=== PATIENT | male | born 1935 | race Caucasian/White ===

== ENCOUNTER 2020-05-28 12:21 | Outpatient (REF) | payer MEDICARE, OTHER, SELFPAY | END 2020-05-28 12:22 | disposition home or self-care (01) | LOC: HO.LAB 12:21 | PROVIDERS: Visit Provider Internal Medicine | DX: Z20.828 Contact with and (suspected) exposure to other viral communicable diseases (principal) | CPT/HCPCS: C9803; U0003 ==

== ENCOUNTER 2020-06-18 09:45 | Outpatient (REF) | payer MEDICARE, OTHER, SELFPAY ==
[2020-06-18 10:27] LABS: Basophils Percent Auto 0.7 % (0-2); Eosinophils Absolute Auto 0.1 X10*3/uL (0.0-0.4); Eosinophils Percent Auto 1.4 % (0-4); Hemoglobin 10.6 g/dl (14.0-18.0); Imm Gran Abs Auto 0.02 X10*3/uL (0.00-0.03); Imm Gran Pct Auto 0.3 % (0.0-0.4); Lymphocytes Absolute Auto 0.6 X10*3/uL (1.2-4.9); MANUAL DIFF FLAG SCAN; Mean Corpuscular HGB Conc 30.3 g/dl (31.0-36.0); Mean Corpuscular Hemoglobin 27.5 pg (27.0-33.0); Mean Corpuscular Volume 90.7 fL (80-98); Mean Platelet Volume 9.5 fL (9.4-12.4); Monocytes Absolute Auto 0.6 X10*3/uL (0.1-1.2); Monocytes Percent Auto 10.8 % (2-11); Neutrophils Absolute Auto 4.5 X10*3/uL (2.0-8.3); Neutrophils Percent Auto 76.8 % (45-73); Platelet Count 218 X10*3/uL (160-400); Red Blood Count 3.86 X10*6/uL (4.60-5.80); Red Cell Distribution Width 17.4 % (11.0-16.0); SCAN SMEAR FLAG 1; White Blood Count 5.9 X10*3/uL (4.8-10.8)
[2020-06-18 11:34] LABS: Alanine Aminotransferase 14 U/L (0-40); Albumin Level 4.2 g/dL (3.5-5.0); Alkaline Phosphatase 92 U/L (39-117); Anion Gap 9 (12-20); Aspartate Amino Transferase 27 U/L (5-37); Bilirubin Total 0.6 mg/dL (0.0-1.0); Blood Urea Nitrogen 28 mg/dL (9-16); Calcium 9.9 mg/dL (8.4-10.2); Carbon Dioxide 27 mmol/L (22-29); Chloride 108 mmol/L (96-108); Cholesterol 97 mg/dL; Estimated Glomerular Filt Rate > 60; Glucose Fasting 120 mg/dL (60-99); HDL Cholesterol 48 mg/dL; LDL Cholesterol Calculated 40 mg/dl; Potassium 4.3 mmol/l (3.3-5.1); Sodium 140 mmol/L (135-145); Total Protein 7.6 g/dL (6.5-8.0); Triglycerides 48 mg/dL
[2020-06-18 11:45] LABS: Reflex LDLD? No
[2020-06-18 12:43] LABS: SLIDE REVIEW VERIFIED
[2020-06-18 13:26] LABS: Glucose Urine UA NEG (NEG); Leukocyte Esterase Urine NEG (NEG); Nitrite Urine NEG (NEG); Specific Gravity - Urine >= 1.030 (1.005-1.025); Urine Blood TRACE (NEG); Urine Ketones NEG (NEG); Urine Protein 1+ MG/DL (NEG-TRACE)
[2020-06-18 13:38] LABS: Appearance Urine CLEAR; Color Urine YELLOW
[2020-06-18 13:53] LABS: RBC Urine 0-2 /HPF (0); Squamous Epithelial Cell Urine 1+ /LPF
== END 2020-06-18 09:46 | disposition home or self-care (01) ==
LOC: HO.LAB 09:45
PROVIDERS: PCP Internal Medicine; Visit Provider Internal Medicine
DX: E78.6 Lipoprotein deficiency (principal); I10 Essential (primary) hypertension; R73.09 Other abnormal glucose; E78.00 Pure hypercholesterolemia, unspecified; R97.20 Elevated prostate specific antigen [PSA]; E04.1 Nontoxic single thyroid nodule
CPT/HCPCS: 36415; 80053; 80061; 81001; 84443; 85025

== ENCOUNTER 2020-07-24 13:03 | Outpatient (REF) | payer MEDICARE, OTHER, SELFPAY ==
[2020-07-24 15:16] LABS: Anion Gap 15 (12-20); Blood Urea Nitrogen 24 mg/dL (9-16); Calcium 8.8 mg/dL (8.4-10.2); Carbon Dioxide 25 mmol/L (22-29); Chloride 105 mmol/L (96-108); Estimated Glomerular Filt Rate > 60; Glucose Random 103 mg/dL (60-115); Potassium 4.2 mmol/l (3.3-5.1); Sodium 141 mmol/L (135-145)
[2020-07-24 15:22] LABS: B Type Natriuretic Peptide 423 pg/mL (<100)
== END 2020-07-24 13:04 | disposition home or self-care (01) ==
LOC: HO.LAB 13:03
PROVIDERS: PCP Internal Medicine; Referring Provider Internal Medicine Cardiovascular Disease; Visit Provider Internal Medicine Cardiovascular Disease
DX: I50.30 Unspecified diastolic (congestive) heart failure (principal); I48.20 Chronic atrial fibrillation, unspecified; I25.10 Atherosclerotic heart disease of native coronary artery without angina pectoris; Z79.899 Other long term (current) drug therapy
CPT/HCPCS: 36415; 80048; 83880; 99212

== ENCOUNTER → 2020-10-04 13:54 | Outpatient (BNVA) | payer MEDICARE, OTHER, SELFPAY | PROVIDERS: PCP Internal Medicine; Visit Provider Urology | DX: N40.1 Benign prostatic hyperplasia with lower urinary tract symptoms (principal); N13.8 Other obstructive and reflux uropathy; C67.9 Malignant neoplasm of bladder, unspecified | CPT/HCPCS: 52000; 81002; 99212 ==

== ENCOUNTER 2020-12-25 10:48 | Outpatient (REF) | payer MEDICARE, OTHER, SELFPAY ==
[2020-12-25 12:03] LABS: Alanine Aminotransferase 13 U/L (0-40); Alkaline Phosphatase 86 U/L (39-117); Aspartate Amino Transferase 27 U/L (5-37); Bilirubin Direct 0.6 mg/dL (0.0-0.5); Bilirubin Total 1.3 mg/dL (0.0-1.0); Cholesterol 97 mg/dL; HDL Cholesterol 42 mg/dL; LDL Cholesterol Calculated 44 mg/dl; Total Protein 6.9 g/dL (6.5-8.0); Triglycerides 56 mg/dL
[2020-12-25 13:07] LABS: Reflex LDLD? No
== END 2020-12-25 10:49 | disposition home or self-care (01) ==
LOC: HO.LNP 10:48
PROVIDERS: PCP Internal Medicine; Visit Provider Internal Medicine
DX: E78.00 Pure hypercholesterolemia, unspecified (principal)
CPT/HCPCS: 80061; 80076

== ENCOUNTER 2021-01-03 16:24 | Outpatient (REF) | payer MEDICARE, OTHER, SELFPAY ==
[2021-01-03 16:28] LABS: MANUAL DIFF FLAG NO
[2021-01-03 16:36] LABS: Basophils Percent Auto 0.5 % (0-2); Eosinophils Absolute Auto 0.3 X10*3/uL (0.0-0.4); Hemoglobin 11.6 g/dl (14.0-18.0); Imm Gran Abs Auto 0.03 X10*3/uL (0.00-0.03); Imm Gran Pct Auto 0.5 % (0.0-0.4); Lymphocytes Absolute Auto 0.5 X10*3/uL (1.2-4.9); Lymphocytes Percent Auto 8.7 % (20-40); Mean Corpuscular HGB Conc 32.2 g/dl (31.0-36.0); Mean Corpuscular Hemoglobin 31.1 pg (27.0-33.0); Mean Corpuscular Volume 96.5 fL (80-98); Mean Platelet Volume 9.5 fL (9.4-12.4); Monocytes Absolute Auto 0.7 X10*3/uL (0.1-1.2); Monocytes Percent Auto 11.5 % (2-11); Neutrophils Absolute Auto 4.7 X10*3/uL (2.0-8.3); Neutrophils Percent Auto 74.8 % (45-73); Platelet Count 300 X10*3/uL (160-400); Red Blood Count 3.73 X10*6/uL (4.60-5.80); Red Cell Distribution Width 14.1 % (11.0-16.0); White Blood Count 6.2 X10*3/uL (4.8-10.8)
[2021-01-03 17:03] LABS: Alanine Aminotransferase 11 U/L (0-40); Albumin Level 3.8 g/dL (3.5-5.0); Alkaline Phosphatase 105 U/L (39-117); Anion Gap 14 (12-20); Aspartate Amino Transferase 19 U/L (5-37); Bilirubin Total 0.8 mg/dL (0.0-1.0); Blood Urea Nitrogen 28 mg/dL (9-16); Calcium 8.7 mg/dL (8.4-10.2); Carbon Dioxide 23 mmol/L (22-29); Chloride 108 mmol/L (96-108); Estimated Glomerular Filt Rate > 60; Glucose Random 138 mg/dL (60-115); Potassium 4.4 mmol/L (3.3-5.1); Sodium 141 mmol/L (135-145); Total Protein 7.1 g/dL (6.5-8.0)
[2021-01-03 17:35] LABS: Erythrocyte Sedimentation Rate 64 MM/HR (0-15)
== END 2021-01-03 16:25 | disposition home or self-care (01) ==
LOC: HO.LNP 16:24
PROVIDERS: Visit Provider Internal Medicine
DX: R68.83 Chills (without fever) (principal)
CPT/HCPCS: 80053; 85025; 85652

== ENCOUNTER 2021-01-09 09:49 | Outpatient (REF) | payer MEDICARE, OTHER, SELFPAY ==
--- NOTE | ~2021-01-09 | CT_ITS ---
EXAMINATION: CT CHEST WITHOUT CONTRAST CLINICAL INFORMATION: Lung nodule. COMPARISON: Multiple priors, most recent CT chest dated 06/27/2019. TECHNIQUE: Multidetector volumetric CT imaging of the chest was done. Axial MIP volume rendering provided. Sagittal and coronal reformatted images were obtained. This CT examination was performed using dose optimization techniques as appropriate, variously including the following: *Automated exposure control *Adjustment of mA and/or kV according to patient size (this includes techniques or standardized protocols for targeted exams where dose is matched to indication/reason for exam; i.e. extremities or head) *Use of iterative reconstruction technique DLP: 180 mGy-cm FINDINGS: CAREER TECHNICAL EDUCATION TEACHER: Unremarkable. LUNGS: Moderate emphysematous changes are redemonstrated. Stable focal pleural thickening at the apex of the right major fissure (axial image 283/725). Redemonstration of an ovoid, noncalcified 0.8 cm nodule within the apex of the left lower lobe (axial image 350/725). Stable 0.2 cm nodule centrally within the right middle lobe (axial image 496/725). Additional tiny calcified granulomas are unchanged. No new pulmonary nodule, mass, or confluent airspace consolidation. The central airways are patent. MEDIASTINUM: Myocardial megaly, unchanged. No pericardial effusion. Thoracic aorta and coronary artery atherosclerotic calcifications are redemonstrated. No thoracic aortic dilatation. Stable small superior mediastinal lymph nodes. No new or increasing lymphadenopathy. Partially visualized asymmetrically enlarged right thyroid, unchanged. PLEURA: There is no pleural effusion. No pleural mass or thickening. AXILLA: No lymphadenopathy. UPPER ABDOMEN: Unremarkable. OSSEOUS STRUCTURES: Unremarkable. CT/CT chest wo con IMPRESSION: 1. Moderate emphysematous changes are redemonstrated. Bilateral pulmonary nodules appear unchanged with the largest measuring 0.8 cm in the left lower lobe. 2. No new pulmonary nodule, mass, or airspace consolidation. 3. No new or increasing lymphadenopathy.
== END 2021-01-09 09:50 | disposition home or self-care (01) ==
LOC: HO.CT 09:49
PROVIDERS: PCP Internal Medicine; Visit Provider Internal Medicine
DX: R91.1 Solitary pulmonary nodule (principal)
CPT/HCPCS: 71250

== ENCOUNTER → 2021-01-25 11:53 | Outpatient (BNVA) | payer MEDICARE, OTHER, SELFPAY | PROVIDERS: PCP Internal Medicine; Visit Provider Urology | CPT/HCPCS: Q3014 ==

== ENCOUNTER → 2021-02-12 13:57 | Outpatient (REF) | payer MEDICARE, OTHER, SELFPAY ==
--- NOTE | 2021-02-12 14:00 | CA_ITS ---
Transthoracic Echocardiogram Patient (Last, First, Middle): Duke Felton W Gender: Male Date of : 1935 Age: 85 Procedure Date: 02/12/2021 Procedure Type: Transthoracic Echocardiogram Location: OP Height: 185.42 cm Weight: 77.11 kg BSA: 2.01 m2 Heart Rate: bpm BP: 124 / 60 mmHg Water Control Station Engineer: Referring MD: Albert Cabrrea MD Symptoms: I27.20 - Pulmonary hypertension, unspecified Study Quality: Fair ECG Rhythm: Atrial Fibrillation Conclusions: - The left ventricular systolic function is normal. The visually estimated ejection fraction is between 65-70%. - The basal inferior segment is hypokinetic. - Moderately increased right ventricular cavity size. - Severe biatrial enlargement. - There is mild aortic valve stenosis. - There is moderate tricuspid valve regurgitation. - Moderate to severe pulmonary hypertension is present. Findings Left Ventricle Normal left ventricular cavity size. There is mildly increased left ventricular wall thickness. The left ventricular systolic function is normal. The visually estimated ejection fraction is between 65-70%. Diastolic function is indeterminate on the basis of available data. Wall Motion Rest Echo Findings The basal inferior segment is hypokinetic. Right Ventricle Moderately increased right ventricular cavity size. There is normal right ventricular systolic function. RV basal diameter 4.57cm. TAPSE 2.2cm. Atria Severe biatrial enlargement. Aortic Valve There is moderate calcification of the aortic valve. There is mild aortic valve stenosis. The mean gradient is 8 mmHg. The aortic valve area is 1.69 cm2. There is trace (trivial) aortic valve regurgitation. Dimensionless index 0.37. Mitral Valve There is mild mitral annular calcification. There is mild mitral valve regurgitation. There is no mitral valve stenosis. Pulmonic Valve The pulmonic valve was not well visualized. Tricuspid Valve Normal tricuspid valve structure. There is moderate tricuspid valve regurgitation. The right ventricular systolic pressure is 66 mmHg. Moderate to severe pulmonary hypertension is present. Great Vessels The asc aorta is normal in size. Venous The inferior vena cava is dilated and collapses greater than 50% with inspiration. Pericardium/Pleural There is no evidence of pericardial effusion. Prior Study Comparison No significant change compared to prior study dated: 01/31/2020. Wall motion abnormality noted in prior study upon review of images. Measurements 2D Linear Measurements IVSd: 1.12 0.6-0.9/0.6-1.0 cm LVIDd: 5.16 3.9-5.3/4.2-5.9 cm LVIDd Index: 2.57 2.4-3.2/2.2-3.1 cm/m2 LVIDs: 3.82 2.0-3.6 cm LVPWd: 1.04 0.7-1.1 cm Ao Root: 3.70 2.1-3.5 cm LA Diam: 5.40 2.7-3.8/3.0-4.0 cm LAIDs Index: 2.69 1.5-2.3 cm/m2 LV Mass: 265.03 67-162/88-224 g LV Mass Index: 131.85 43-95/49-115 g/m2 LVOT Diam: 2.30 3.0+(-)1.3 cm 2D Systolic Function EF 4C: 72.10 >55% EF 2C: 75.50 >55% EF BiP: 73.50 >55% Mitral Valve MV Pk E: 1.38 MV Decel Time: 177.00 E'Lateral: 11.70 E'Medial: 8.70 E/E' Med: 15.90 E/E' Lat: 11.80 PHT: 52.00 MVA PHT: 4.23 Decel Coles: 7.81 Aortic Valve AoV Pk Alvaro: 2.25 AoV Mn Alvaro: 1.19 AoV VTI: 0.58 AoV Pk Grad: 20.00 Aov Mn Grad: 8.00 CARLOS Cont.VTI: 1.69 LVOT LVOT Pk Alvaro: 0.86 LVOT Mn Alvaro: 0.66 LVOT VTI: 0.24 LVOT Pk Grad: 3.00 LVOT Mn Grad: 2.00 LVOT Diam: 2.30 LVOT Area: 4.15 Diastolic Function MV Pk E: 1.38 E'Medial: 8.70 E/E' Med: 15.90 E' Laterial: 11.70 E/E' Lat: 11.80 Right Ventricle TAPSE (mm): 22.00 TVS' Alvaro: 14.00 Tricuspid Valve TR Pk Alvaro: 3.82 TR Pk Grad: 58.00 RA Press: 8.00 RVSP: 66.00 Great Vessels Aorta Ao Root-2D: 3.70 2.0-3.7 cm Ao Asc: 3.70 2.1-3.4 cm Pulmonary Valve PV Pk Alvaro: 0.65 Peak PV Grad: 2.00 Updated in Other Vendor System with Status of Final Marlon Thornton MD electronically signed on 02/13/2021 12:16:35 PM with status of Final
== END ==
LOC: HO.CARD 13:57
PROVIDERS: PCP Internal Medicine; Visit Provider Internal Medicine Cardiovascular Disease
DX: I27.20 Pulmonary hypertension, unspecified (principal); I48.20 Chronic atrial fibrillation, unspecified; I50.30 Unspecified diastolic (congestive) heart failure
CPT/HCPCS: 93306

== ENCOUNTER → 2021-02-20 10:25 | Outpatient (BNVA) | payer MEDICARE, OTHER, SELFPAY | PROVIDERS: PCP Internal Medicine; Referring Provider Internal Medicine; Visit Provider Internal Medicine Cardiovascular Disease | DX: I48.20 Chronic atrial fibrillation, unspecified (principal); R00.1 Bradycardia, unspecified; I50.30 Unspecified diastolic (congestive) heart failure; I25.10 Atherosclerotic heart disease of native coronary artery without angina pectoris | CPT/HCPCS: 99212 ==

== ENCOUNTER → 2021-03-11 10:59 | Day surgery (SDC) | payer MEDICARE, OTHER, SELFPAY ==
[2021-03-06 13:31] VITALS: BMI 21.8
--- NOTE | 2021-03-07 14:00 | HO.ANESPROP2 ---
HPI - Anesthesia Eval Consult details Narrative: 85yo M for Cystoscopy Bladder Fulguration Ezekiel with referral to EP for pacer for pending. Cardiology states optimized at intermed risk Xarelto for afib Case reviewed with Dr Morrell 03/11/21 - cx'd d/t HR 30-40's [facility] Active Problems Active Problems: All Active Problems (Updated 03/06/21 @ 13:39 by Sarah Jansen, RN) Bladder cancer (Acute) BPH w urinary obs/LUTS (Acute) Bradycardia (Acute) Hyperlipidemia (Acute) HTN (hypertension) (Acute) Pulmonary hypertension (Acute) (HFpEF) heart failure with preserved ejection fraction (Acute) CAD (coronary artery disease) (Acute) Chronic atrial fibrillation (Acute) Past Medical History Medical History (Updated 03/06/21 @ 13:39 by Sarah Jansen RN) (HFpEF) heart failure with preserved ejection fraction Bradycardia CAD (coronary artery disease) Chronic atrial fibrillation COPD (chronic obstructive pulmonary disease) HTN (hypertension) Hyperlipidemia Malignant neoplasm of lateral wall of urinary bladder Pulmonary hypertension Family History Family History Father Lung cancer Cancer Mother No problems noted. Surgical History Surgical History H/O transurethral resection of prostate History of appendectomy History of back surgery History of prostate surgery Stented coronary artery Social History Social History Household Members: Spouse Alcohol intake: never Patient Tobacco Use Status: Tobacco use Unknown Advance Directives: Yes (unknown) Advance Directives Information Provided: No Current occupational status: retired [employer] Allergies Allergy/AdvReac Type Severity Reaction Status Date / Time No Known Allergies Allergy Verified 03/11/21 11:57 [No Known Allergies*] Home Medications Medication Instructions Recorded Confirmed Last Taken Type albuterol sulfate 90 mcg/actuation 2 puff INHALATION Q6H PRN g 06/15/20 03/06/21 Unknown History aerosol inhaler atorvastatin 20 mg tablet 20 mg PO DAILY tab 06/15/20 03/06/21 Unknown History finasteride 5 mg tablet 5 mg PO DAILY tab 06/15/20 03/06/21 Unknown History potassium chloride 10 mEq 10 meq PO DAILY cap 06/15/20 03/06/21 Unknown History capsule,extended release tamsulosin 0.4 mg capsule 0.4 mg PO DAILY cap 06/15/20 02/20/21 Unknown History furosemide 40 mg tablet 40 mg PO DAILY 07/24/20 03/06/21 Unknown History rivaroxaban 20 mg tablet (Xarelto) 20 mg PO DAILY tab 07/24/20 03/11/21 03/04/21 History Exam Exam Date and Time: March 07, 2021 1400 Height,Weight and Vital Signs: Height 6 ft 1 in Weight 75 kg Pertinent Lab Results Pertinent Lab Results: Laboratory Tests 01/03/21 01/03/21 16:04 16:04 WBC 6.2 Hgb 11.6 L Hct 36.0 L Plt Count 300 D Sodium 141 Potassium 4.4 Chloride 108 Carbon Dioxide 23 BUN 28 H Creatinine 0.86 Narrative Narrative: EKG 01/2021 afib @ 40 ECHO 01/2021 Conclusions: - The left ventricular systolic function is normal.? The visually estimated ejection fraction is between 65-70%. ? - The basal inferior segment is hypokinetic. ? - Moderately increased right ventricular cavity size.? - Severe biatrial enlargement. ? - There is mild aortic valve stenosis. ? - There is moderate tricuspid valve regurgitation. ? - Moderate to severe pulmonary hypertension is present.? ??
[2021-03-11 11:52] VITALS: BP 189/53; PULSE 40; RESP 16; TEMP 37.1; O2SAT 95
--- NOTE | 2021-03-11 12:09 | PC.NURSE ---
Patient states that he is a DNR code status. Patient states he has filled out this paperwork in the past. Documentation not with patient nor found in medical database. Patients HCP is his Mirna Felton. Phone number [phone].
--- NOTE | 2021-03-11 12:42 | PC.NURSE ---
Patient pulse rate on monitor low 30s-low 40s, asymptomatic otherwise. Anesthesia Kathleen notified, per MD no EKG required, one in system from 02/20/21 showing Afib & note from Dr Cabrera stated patient in low 40s during that visit. Anesthesia to reach out to Dr Cabrrea.
--- NOTE | 2021-03-11 12:58 | PC.NURSE ---
Per Dr Malik, case to be cancelled for today, to follow up with rubber worker outpatient. Per Dr Malik patient does not need to go to ED. Clothes & belongings given back to patient and called.
--- NOTE | 2021-03-11 13:05 | PM.ANESPN ---
Subjective Subjective Date of Service: 03/11/21 Physical Exam Vital Signs: Vital Signs: Last Vital Signs Temp 98.8 F 03/11/21 11:52 Pulse 40 L 03/11/21 11:52 Resp 16 03/11/21 11:52 BP 189/53 H 03/11/21 11:52 Pulse Ox 95 03/11/21 11:52 Body Mass Index 21.8 Progress Note: A&P Assessment and plan Assessment and Plan: patient with history history of bradycardia and appointment for leadless pacer. HR in preop dipping to low 30s, pt assymptomatic. discussed with Dr. Cabrera. Will cancel procedure and send home. patient to follow with scheduled pacer appointment Fall Risk Details Current Medications: Current Medications Generic Name Dose Route Start Last Admin Trade Name Freq PRN Reason Stop Dose Admin Albuterol Sulfate 2.5 mg 03/11/21 11:04 Albuterol Sulfate (0.083%) 2.5 Mg/3 Ml Vial.Neb INHALE ONCE PRN Shortness of Breath/Wheezing Lactated Ringer's 1,000 mls @ 50 mls/hr 03/11/21 11:15 Lr IVCONT .Q20H MAVERICK Time Spent With Patient Time: Total time spent is greater than 50% in coordination of care (as documented) at patient's floor/unit and/or counseling patient:
== END ==
PROVIDERS: PCP Internal Medicine; Visit Provider Urology
DX: C67.9 Malignant neoplasm of bladder, unspecified (principal); Z53.20 Procedure and treatment not carried out because of patient's decision for unspecified reasons; I48.91 Unspecified atrial fibrillation; Z79.01 Long term (current) use of anticoagulants

== ENCOUNTER 2021-04-11 09:34 | Outpatient (REF) | payer MEDICARE, OTHER, SELFPAY ==
[2021-04-11 09:58] LABS: MANUAL DIFF FLAG NO
[2021-04-11 10:21] LABS: Basophils Percent Auto 0.6 % (0-2); Eosinophils Absolute Auto 0.2 X10*3/uL (0.0-0.4); Eosinophils Percent Auto 3.3 % (0-4); Hematocrit 36.2 % (42-52); Hemoglobin 11.1 g/dl (14.0-18.0); Imm Gran Abs Auto 0.01 X10*3/uL (0.00-0.03); Imm Gran Pct Auto 0.2 % (0.0-0.4); Lymphocytes Absolute Auto 0.5 X10*3/uL (1.2-4.9); Mean Corpuscular HGB Conc 30.7 g/dl (31.0-36.0); Mean Corpuscular Hemoglobin 28.3 pg (27.0-33.0); Mean Corpuscular Volume 92.3 fL (80-98); Mean Platelet Volume 9.2 fL (9.4-12.4); Monocytes Absolute Auto 0.6 X10*3/uL (0.1-1.2); Monocytes Percent Auto 11.8 % (2-11); Neutrophils Absolute Auto 3.6 X10*3/uL (2.0-8.3); Neutrophils Percent Auto 74.1 % (45-73); Platelet Count 260 X10*3/uL (160-400); Red Blood Count 3.92 X10*6/uL (4.60-5.80); Red Cell Distribution Width 16.7 % (11.0-16.0); White Blood Count 4.9 X10*3/uL (4.8-10.8)
[2021-04-11 10:29] LABS: INTERNATIONAL NORM RATIO 1.6 (0.9-1.1); Prothrombin Time 18.5 SEC (9.9-13.0)
[2021-04-11 10:44] LABS: Anion Gap 14 (12-20); Blood Urea Nitrogen 22 mg/dL (9-16); Calcium 9.1 mg/dL (8.4-10.2); Carbon Dioxide 20 mmol/L (22-29); Chloride 110 mmol/L (96-108); Estimated Glomerular Filt Rate > 60; Glucose Random 100 mg/dL (60-115); Potassium 4.6 mmol/L (3.3-5.1); Sodium 139 mmol/L (135-145)
== END 2021-04-11 09:35 | disposition home or self-care (01) ==
LOC: HO.LABR 09:34
PROVIDERS: PCP Internal Medicine; Visit Provider Internal Medicine Cardiovascular Disease
DX: I48.91 Unspecified atrial fibrillation (principal); I50.9 Heart failure, unspecified
CPT/HCPCS: 36415; 80048; 85025; 85610

== ENCOUNTER → 2021-04-22 13:05 | Outpatient (BNVA) | payer MEDICARE, OTHER, SELFPAY | PROVIDERS: PCP Internal Medicine; Referring Provider Internal Medicine; Visit Provider Internal Medicine Cardiovascular Disease ==

== ENCOUNTER 2021-04-22 16:05 | Outpatient (REF) | payer MEDICARE, OTHER, SELFPAY ==
--- NOTE | ~2021-04-22 | US_ITS ---
EXAMINATION: COLOR-FLOW DUPLEX IMAGING OF THE UNILATERAL RIGHT LOWER EXTREMITY ARTERIAL SYSTEM. VELOCITY MEASUREMENTS THROUGHOUT THE FEMORAL ARTERIES Interventional Radiologist: Patrice Sauceda M.D., F.S.I.R., F.A.C.R. CLINICAL INFORMATION: This is an 85-year-old male with an open wound. Peripheral arterial disease. RIGHT FEMORAL RUNOFF VELOCITIES: The right common femoral artery measures 124 cm/s and biphasic. The right profunda femoral artery is 34 cm/s and is biphasic. Right proximal superficial femoral artery measures 122 cm/s and biphasic. Mid superficial femoral artery is 125 cm/s and biphasic. Distal right superficial femoral artery measures 99 cm/s and is biphasic. Right popliteal velocity measures 65 cm/s and is biphasic. The posterior tibial artery velocity measures 64 cm/s and was biphasic. US/US arterial duplex LE RT IMPRESSION: 1. There is diffuse scattered atherosclerotic disease. No focal hemodynamically significant stenosis.
== END 2021-04-22 16:06 | disposition home or self-care (01) ==
LOC: HO.US 16:05
PROVIDERS: PCP Internal Medicine; Visit Provider Internal Medicine Cardiovascular Disease
DX: S31.103A Unspecified open wound of abdominal wall, right lower quadrant without penetration into peritoneal cavity, initial encounter (principal); I50.30 Unspecified diastolic (congestive) heart failure; I48.20 Chronic atrial fibrillation, unspecified; I25.10 Atherosclerotic heart disease of native coronary artery without angina pectoris; Z95.0 Presence of cardiac pacemaker
CPT/HCPCS: 93926; 99212

== ENCOUNTER → 2021-06-04 14:56 | Outpatient (BNVA) | payer MEDICARE, OTHER, SELFPAY | PROVIDERS: PCP Internal Medicine; Referring Provider Internal Medicine; Visit Provider Nurse Practitioner Family | DX: Z45.018 Encounter for adjustment and management of other part of cardiac pacemaker (principal); I50.30 Unspecified diastolic (congestive) heart failure; I25.10 Atherosclerotic heart disease of native coronary artery without angina pectoris; I48.20 Chronic atrial fibrillation, unspecified | CPT/HCPCS: 99212 ==

== ENCOUNTER 2021-06-18 08:52 | Outpatient (REF) | payer MEDICARE, OTHER, SELFPAY ==
[2021-06-18 16:56] LABS: Urine Cytology See Pathology rpt
[2021-06-18 16:58] LABS: Urine Cytology See Pathology rpt
== END 2021-06-18 08:53 | disposition home or self-care (01) ==
LOC: HO.LAB 08:52
PROVIDERS: PCP Internal Medicine; Visit Provider Urology
DX: C67.9 Malignant neoplasm of bladder, unspecified (principal); N40.1 Benign prostatic hyperplasia with lower urinary tract symptoms; N13.8 Other obstructive and reflux uropathy
CPT/HCPCS: 52000; 88112; 99212

== ENCOUNTER 2021-07-02 10:28 | Outpatient (REF) | payer MEDICARE, OTHER, SELFPAY ==
[2021-07-02 10:32] LABS: MANUAL DIFF FLAG NO
[2021-07-02 11:25] LABS: Basophils Percent Auto 0.1 % (0-2); Hematocrit 39.8 % (42.0-52.0); Hemoglobin 12.6 g/dl (14.0-18.0); Imm Gran Abs Auto 0.02 X10*3/uL (0.00-0.03); Imm Gran Pct Auto 0.3 % (0.0-0.4); Lymphocytes Absolute Auto 0.3 X10*3/uL (1.2-4.9); Lymphocytes Percent Auto 4.3 % (20-40); Mean Corpuscular HGB Conc 31.7 g/dl (31.0-36.0); Mean Corpuscular Volume 91.7 fL (80.0-98.0); Mean Platelet Volume 10.3 fL (9.4-12.4); Monocytes Absolute Auto 0.4 X10*3/uL (0.1-1.2); Monocytes Percent Auto 6.2 % (2-11); Neutrophils Absolute Auto 6.1 x10*3/uL (2.0-8.3); Neutrophils Percent Auto 89.1 % (45-73); Platelet Count 196 X10*3/uL (160-400); Red Blood Count 4.34 X10*6/uL (4.60-5.80); Red Cell Distribution Width 17.2 % (11.0-16.0); White Blood Count 6.8 X10*3/uL (4.8-10.8)
[2021-07-02 11:47] LABS: Alanine Aminotransferase 12 U/L (0-40); Albumin Level 4.1 g/dL (3.5-5.0); Alkaline Phosphatase 91 U/L (39-117); Anion Gap 12 (12-20); Aspartate Amino Transferase 19 U/L (5-37); Bilirubin Total 1.2 mg/dL (0.0-1.0); Blood Urea Nitrogen 29 mg/dL (9-16); Calcium 9.1 mg/dL (8.4-10.2); Carbon Dioxide 23 mmol/L (22-29); Chloride 108 mmol/L (96-108); Cholesterol 93 mg/dL; Estimated Glomerular Filt Rate > 60; Glucose Fasting 152 mg/dL (60-99); HDL Cholesterol 42 mg/dL; LDL Cholesterol Calculated 40 mg/dl; Potassium 4.4 mmol/L (3.3-5.1); Sodium 139 mmol/L (135-145); Total Protein 7.4 g/dL (6.5-8.0); Triglycerides 58 mg/dL
[2021-07-02 11:52] LABS: TSH reflex Free T4 1.04 uIU/mL (0.32-4.0)
[2021-07-02 12:19] LABS: Folate 9.2 ng/mL (> or = 4.0); Vitamin B12 336 pg/mL (200-900)
== END 2021-07-02 10:29 | disposition home or self-care (01) ==
LOC: HO.LNP 10:28
PROVIDERS: Visit Provider Internal Medicine
DX: E78.00 Pure hypercholesterolemia, unspecified (principal); I50.21 Acute systolic (congestive) heart failure; E04.1 Nontoxic single thyroid nodule; E53.8 Deficiency of other specified B group vitamins; R97.20 Elevated prostate specific antigen [PSA]
CPT/HCPCS: 80053; 80061; 82607; 82746; 84443; 85025

== ENCOUNTER 2021-07-11 15:50 | Outpatient (REF) | payer MEDICARE, OTHER, SELFPAY ==
[2021-07-11 15:55] LABS: Appearance Urine CLEAR; Color Urine YELLOW; Glucose Urine UA NEG (NEG); Leukocyte Esterase Urine 1+ (NEG); Nitrite Urine NEG (NEG); PH 5.5 (5.0-8.0); Specific Gravity - Urine >= 1.030 (1.005-1.025); Urine Blood TRACE (NEG); Urine Ketones NEG (NEG); Urine Protein 2+ MG/DL (NEG-TRACE)
[2021-07-11 16:07] LABS: Bacteria Urine 1+ /LPF; Squamous Epithelial Cell Urine TRACE /LPF
== END 2021-07-11 15:51 | disposition home or self-care (01) ==
LOC: HO.LNP 15:50
PROVIDERS: Visit Provider Internal Medicine
DX: I10 Essential (primary) hypertension (principal); E78.00 Pure hypercholesterolemia, unspecified
CPT/HCPCS: 81001

== ENCOUNTER → 2021-09-10 11:18 | Outpatient (BNVA) | payer MEDICARE, OTHER, SELFPAY | PROVIDERS: PCP Internal Medicine; Visit Provider Urology | DX: C67.9 Malignant neoplasm of bladder, unspecified (principal) | CPT/HCPCS: 99212 ==

== ENCOUNTER 2021-09-16 06:06 | Day surgery (SDC) | payer MEDICARE, OTHER, SELFPAY ==
[2021-09-11 14:45] VITALS: BMI 22.0
--- NOTE | 2021-09-13 13:23 | P.CONAN_ITS ---
Documented by User: Yeny Vargas NP 09/13/21 13:28 HPI - Anesthesia Eval Consult details Narrative: 85yo M for TUR Bladder Tumor with Gemcitabine Cx'd DOS 02/2021 for HR 30-40's. Had pacer placed 03/2021 for CHB Stable for 6 month f/u at 05/2021 cardiology office visit Xarelto for afib PMFSH Active Problems Active Problems: All Active Problems (Updated 09/10/21 @ 11:49 by Murray Watters MD) Bladder cancer (Acute) BPH w urinary obs/LUTS (Acute) Bradycardia (Acute) Cardiac pacemaker in situ (Acute) Hyperlipidemia (Acute) HTN (hypertension) (Acute) Pulmonary hypertension (Acute) (HFpEF) heart failure with preserved ejection fraction (Acute) CAD (coronary artery disease) (Acute) Chronic atrial fibrillation (Acute) Past Medical History Medical History (Updated 09/10/21 @ 11:49 by Murray Watters MD) (HFpEF) heart failure with preserved ejection fraction Bradycardia CAD (coronary artery disease) Cardiac pacemaker in situ Chronic atrial fibrillation COPD (chronic obstructive pulmonary disease) HTN (hypertension) Hyperlipidemia Malignant neoplasm of lateral wall of urinary bladder Pulmonary hypertension Family History Family History Father Lung cancer Cancer Mother No problems noted. Surgical History Surgical History (Updated 09/11/21 @ 10:51 by Sarah Jansen RN) H/O transurethral resection of prostate History of appendectomy History of back surgery History of placement of leadless cardiac pacemaker History of prostate surgery Stented coronary artery Social History Social History Household Members: Spouse Are you a primary early breastfeeding care specialist to a significant other at home: No Do you presently have visiting nurse or other home services: No Alcohol intake: never Patient Tobacco Use Status: Former Tobacco user Quit Date: age 65 Advance Directives Date on File: 08/10/14 Current occupational status: retired Meds Allergies Allergy/AdvReac Type Severity Reaction Status Date / Time No Known Allergies Allergy Verified 09/10/21 11:43 [No Known Allergies*] Home Medications Medication Instructions Recorded Confirmed Last Taken Type albuterol sulfate 90 mcg/actuation 2 puff INHALATION Q6H PRN g 06/15/20 09/11/21 Unknown History aerosol inhaler atorvastatin 20 mg tablet 20 mg PO DAILY tab 06/15/20 09/11/21 Unknown History potassium chloride 10 mEq 10 meq PO DAILY cap 06/15/20 09/11/21 Unknown History capsule,extended release furosemide 40 mg tablet 40 mg PO DAILY 07/24/20 09/11/21 Unknown History rivaroxaban 20 mg tablet (Xarelto) 20 mg PO DAILY tab 07/24/20 09/11/21 09/12/21 History Exam Exam Date and Time: September 13, 2021 1323 Height,Weight and Vital Signs: Height 6 ft 1 in Weight 75.75 kg Pertinent Lab Results Pertinent Lab Results: Laboratory Tests 07/02/21 07/02/21 09:25 09:25 WBC 6.8 Hgb 12.6 L Hct 39.8 L Plt Count 196 Sodium 139 Potassium 4.4 Chloride 108 Carbon Dioxide 23 BUN 29 H Creatinine 0.92 Narrative Narrative: Cardiac Device Check 05/2021 Details: Leadless [employer] pacemaker in place.? Ventricular pacing greater than 90% time.? Ventricular pacing thresholds adequate and reprogrammed.? Battery life is excellent ECHO 01/2021 Conclusions: - The left ventricular systolic function is normal.? The visually estimated ejection fraction is between 65-70%. ? - The basal inferior segment is hypokinetic. ? - Moderately increased right ventricular cavity size.? - Severe biatrial enlargement. ? - There is mild aortic valve stenosis. ? - There is moderate tricuspid valve regurgitation. ? - Moderate to severe pulmonary hypertension is present.? ?? Assessment and Plan Assessment Anesthesia Assessment: Chart Reviewed Documented by User: Douglas Weber MD 09/16/21 16:54 [facility] Past Medical History Medical History (Updated 09/10/21 @ 11:49 by Murray Watters MD) (HFpEF) heart failure with preserved ejection fraction Bradycardia CAD (coronary artery disease) Cardiac pacemaker in situ Chronic atrial fibrillation COPD (chronic obstructive pulmonary disease) HTN (hypertension) Hyperlipidemia Malignant neoplasm of lateral wall of urinary bladder Pulmonary hypertension Family History Family History Father Lung cancer Cancer Mother No problems noted. Family history of problems with anesthesia: No Surgical History Surgical History (Updated 09/11/21 @ 10:51 by Sarah Jansen RN) H/O transurethral resection of prostate History of appendectomy History of back surgery History of placement of leadless cardiac pacemaker History of prostate surgery Stented coronary artery History of Problems with Anesthesia: No Social History Social History Household Members: Spouse Are you a primary early breastfeeding care specialist to a significant other at home: No Do you presently have visiting nurse or other home services: No Alcohol intake: never Patient Tobacco Use Status: Former Tobacco user Quit Date: age 65 Advance Directives Date on File: 08/10/14 Current occupational status: retired Meds Allergies Allergy/AdvReac Type Severity Reaction Status Date / Time No Known Allergies Allergy Verified 09/10/21 11:43 [No Known Allergies*] Home Medications Medication Instructions Recorded Confirmed Last Taken Type albuterol sulfate 90 mcg/actuation 2 puff INHALATION Q6H PRN g 06/15/20 09/11/21 Unknown History aerosol inhaler atorvastatin 20 mg tablet 20 mg PO DAILY tab 06/15/20 09/11/21 Unknown History potassium chloride 10 mEq 10 meq PO DAILY cap 06/15/20 09/11/21 Unknown History capsule,extended release furosemide 40 mg tablet 40 mg PO DAILY 07/24/20 09/11/21 Unknown History rivaroxaban 20 mg tablet (Xarelto) 20 mg PO DAILY tab 07/24/20 09/11/21 09/12/21 History Exam Airway Mallampati Class: II TM Dist: >3cm Neck ROM: Full Loose/Missing/Broken Teeth: Yes Heart: rrr Lungs: bl breath sounds Assessment and Plan Assessment Anesthesia Assessment: Anesthesia Plan Discussed Final Anesthetic Review Family History of Problems with Anesthesia: No History of Problems with Anesthesia: No NPO: Yes ASA Class: III Final Preanesthetic Review: Meds/Allgs Chart Reviewed, Consent Obtained/Reviewed and Anes Risks/Benef Reviewed Patient Risk: Intermediate Procedure Risk: Intermediate Anesthetic Plan Anesthetic Plan: GA Disposition: Standard PACU
[2021-09-16] VITALS (15 sets, daily range): BP systolic 143–161; BP diastolic 61–81; PULSE 60–80; RESP 18–24; TEMP 36.4–36.7; O2SAT 94–99
[2021-09-16] MEDS: Lactated Ringers 1,000 ML 50 ML IVCONT (07:01)
--- NOTE | 2021-09-16 07:35 | MHC.SHP ---
Pre-Procedural Eval Section A Date of Service: 09/16/21 The patient is an INPATIENT: No Changes since office visit: No Cold of Flu in the past 2 weeks, No New Medical Problems, No Changes in Medication and No Patient answered all questions The History & Physical has been completed within 30 days and I have reviewed it.: No Section B Chief Complaint: malignant neoplasm of bladder Details of Present Illness: recurrent small lesion with gemcitabine Relevant Family History (Specify if Yes): No Relevant Social History: None Present Medications: None Medical History: Significant History History of Previous Operations: No relevant previous surgery Allergies: Allergies Allergy/AdvReac Type Severity Reaction Status Date / Time No Known Allergies Allergy Verified 09/10/21 11:43 [No Known Allergies*] Review of Systems Sugical H&P ROS: Negative: Constitution, Cardiovascular, Respiratory, Neurological, Psychiatric, Hem-Onc, Allergic/Immunologic, Gastrointestinal, Genitourinary, Musculoskeletal, Integumentary, Endocrine and Eyes/Ears/Nose/Throat Exam Surgical H&P Exam: Normal: HEENT, Normal: Heart, Normal: Lungs, Normal: Extremities, Normal: Abdomen, Normal: Skin and Normal: Neurological Plan Diagnosis/Plan: Unchanged (Bladder Cancer with gemcitabine) I have reviewed the history and physical and performed a pertinent physical examination on my patient. No changes have occurred unless specified.
[2021-09-16] MEDS: Acetaminophen 325 MG TABLET 650 MG PO (07:42)
--- NOTE | 2021-09-16 08:32 | W.PM.OPN ---
Operative Note Operative Note Date of Service: 09/16/21 Narrative: PreOperative Diagnosis: bladder cancer Post Operative Diagnosis: bladder cancer Procedure: fulgeration and Gemcitabine installation Surgeon: Dr Murray Watters Anesthesia: general Indications for procedure: Known recurrent bladder cancer. Small lesion seen on prostate in office surveillance. Recommendation for fulguration in operating room with gemcitabine installation Procedure: After informed consent was verified the patient was brought to the operating room and placed in a supine position. anesthesia was administered per protocol. the patient was placed in a modified dorsal lithotomy position and prepped and draped in a sterile fashion. Safety pause time-out was performed. Antibiotics were confirmed. 22 [place] cystoscope inserted per urethra. Bladder examined its entirety. Multiple bladder small diverticula seen. Narrow band imaging used. Lesion seen on prostate at that is of suspicion. Prior TURP. Area fulgurated on prostate approximately size of to [place]. This is 3 cm in diameter. No tissue taken. At the completion of the procedure the bladder was irrigated. The cystoscope was removed. A [address] Dumont catheter was inserted into the bladder. 10 cc was placed in the balloon. 2 g of gemcitabine in 100 cc of normal saline was instilled into the bladder. the flow from the catheter was left clamped. The inflow to the catheter was attached to a 3 L normal saline bag. The patient Tolerated the procedure well. They were extubated in the operating room and transferred in stable condition to the recovery area. Gemcitabine will remain in the bladder for 1 hour. At the completion of 1 hour the clamp will be removed. The gemcitabine will be allowed to egress to the urine collection bag. The 3 L bag of normal saline will be run at maximum rate through the bladder in order to dilute any residual gemcitabine. The Dumont catheter will then be removed. Pathology: None Drains: Dumont catheter
[2021-09-16] MEDS: fentaNYL citrate/PF 100 MCG/2 ML VIAL 25 MCG IVPUSH ×3 (09:10→09:20)
[2021-09-16] MEDS: ondansetron HCL 4 MG/2 ML VIAL IVPUSH (09:58)
== END 2021-09-16 11:55 | disposition home or self-care (01) ==
PROVIDERS: PCP Internal Medicine; Visit Provider Urology
PROC: 0TBB8ZZ Excision of Bladder, Via Natural or Artificial Opening Endoscopic (ICD-10-PCS; CPT 52235; principal; 2021-09-16 07:30)
DX: C67.9 Malignant neoplasm of bladder, unspecified (principal); N32.3 Diverticulum of bladder; I11.0 Hypertensive heart disease with heart failure; I50.30 Unspecified diastolic (congestive) heart failure; I25.10 Atherosclerotic heart disease of native coronary artery without angina pectoris; Z98.61 Coronary angioplasty status; Z95.0 Presence of cardiac pacemaker; I27.20 Pulmonary hypertension, unspecified; I48.20 Chronic atrial fibrillation, unspecified; Z79.01 Long term (current) use of anticoagulants; J44.9 Chronic obstructive pulmonary disease, unspecified; E78.5 Hyperlipidemia, unspecified; Z79.899 Other long term (current) drug therapy; Z87.891 Personal history of nicotine dependence
CPT/HCPCS: 52235; 51720; J0690; J2405; J3010; J9201

== ENCOUNTER 2021-09-20 10:43 | Emergency (ER) | payer MEDICARE, OTHER, SELFPAY ==
--- NOTE | ~2021-09-20 | XR_ITS ---
EXAMINATION: XR CHEST CLINICAL INFORMATION: Weakness. History of COPD. COMPARISON: None TECHNIQUE: 2 views of the chest were obtained. FINDINGS: The lungs are well-expanded with mild blunting of bilateral CP angle from pleural thickening or effusion. The heart size is enlarged. Pulmonary vascularity is within normal limits. No gross bony abnormality seen. XR/XR chest 2V IMPRESSION: Mild blunting of CP angle from pleural thickening and effusion.
[2021-09-20 10:56] VITALS: BP 135/70; PULSE 61; RESP 15; TEMP 36.7; O2SAT 100
[2021-09-20 10:59] VITALS: BP 140/79; PULSE 60; O2SAT 91; BMI 22.4
--- NOTE | 2021-09-20 11:01 | ED_ITS ---
HPI - General Adult General Chief complaint: Urogenital-Male Stated complaint: Weakness/Blood in Urine Time Seen by Provider: 09/20/21 11:00 Source: patient and EMS Mode of arrival: EMS Limitations: no limitations History of Present Illness HPI narrative: Patient is an 85 year old male presenting to the emergency department today with blood in his urine and generalized weakness. Patient states that he has a history of bladder cancer and a few weeks ago, he followed up with his urologist who found a recurrence of bladder cancer. Patient states that Dr. Watters removed the bladder tumor last Thursday and had the patient hold his Xarelto 3 days before the procedure but he has since restarted it. Patient states that since restarting the Xarelto, he has been having blood in his urine. Patient states th at he also feels weak however, he has a history of CHF and COPD so this weakness isn't new for him. Patient denies any dizziness, lightheadedness, abdominal pain, nausea, vomiting, fever, chills, blurry vision, double vision, loss of vision, chest pain, difficulty breathing, shortness of breath, back pain, night sweats, pain with urination, increased urinary frequency, increased urinary urgency, blood in his stool, syncope or a near syncopal episode, recent trauma or falls, bowel incontinence, bladder incontinence, bowel retention, bladder retention, or any other complaints at this time. Onset (ago): day(s) (2) Treatments prior to arrival: none Related Data Home Medications Medication Instructions Recorded Confirmed albuterol sulfate 90 mcg/actuation 2 puff INHALATION Q6H PRN g 06/15/20 09/11/21 aerosol inhaler atorvastatin 20 mg tablet 20 mg PO DAILY tab 06/15/20 09/11/21 potassium chloride 10 mEq 10 meq PO DAILY cap 06/15/20 09/11/21 capsule,extended release furosemide 40 mg tablet 40 mg PO DAILY 07/24/20 09/11/21 rivaroxaban 20 mg tablet (Xarelto) 20 mg PO DAILY tab 07/24/20 09/11/21 Previous Rx's Medication Instructions Recorded tiotropium 2.5 mcg-olodaterol 2.5 2 puff INHALATION Q24H 30 Days #4 g 08/08/20 mcg/actuation mist for inhalation (Stiolto Respimat) amlodipine 5 mg tablet 5 mg PO DAILY #90 tab 11/01/21 finasteride 5 mg tablet 5 mg PO DAILY #90 tab 08/05/21 tamsulosin 0.4 mg capsule 0.4 mg PO DAILY 30 Days #90 cap 08/05/21 Allergies Allergy/AdvReac Type Severity Reaction Status Date / Time No Known Allergies Allergy Verified 09/10/21 11:43 [No Known Allergies*] Review of Systems Constitutional: Constitutional: Reports no additional constitutional complaints, Denies chills, Denies fever(s) and Denies night sweats Eyes: Eyes: Reports no additional eye complaints, Denies blurry vision, Denies change in vision, Denies diplopia, Denies eye discharge, Denies loss of vision and Denies eye pain ENT: Denies dizziness Cardiovascular: Cardiovascular: Reports no additional cardiovascular complaints, Denies chest pain, Denies lightheadedness, Denies Loss of Consciousness and Denies dyspnea Respiratory: Respiratory: Reports no additional respiratory complaints and Denies dyspnea Gastrointestinal: Gastrointestinal: Reports no additional gastrointestinal complaints, Denies abdominal pain, Denies melena, Denies hematochezia, Denies change in bowel habits and Denies change in stool character Genitourinary: Genitourinary: Reports no additional male genitourinary complaints, Reports hematuria, Denies oliguria, Denies difficulty urinating, Denies dysuria, Denies urinary frequency, Denies urinary hesitancy, Denies urinary incontinence and Denies urinary urgency Musculoskeletal: Musculoskeletal: Reports no additional musculoskeletal complaints, Denies numbness and Denies tingling Neurologic: Denies dizziness, Denies loss of vision, Denies numbness and Denies tingling Psychiatric: Psychiatric: Reports no additional psychiatric complaints Endocrine: Endocrine: Reports no additional endocrine complaints Hematologic/Lymphatic: Hematologic/Lymphatic: Reports no additional hematologic/lymphatic complaints Allergic/Immunologic: Allergic/Immunologic: Reports no additional allergic/immunologic complaints [facility] Past Medical History Attestation statement: The following information was validated with the patient. Source: old records reviewed Medical History (HFpEF) heart failure with preserved ejection fraction Bradycardia CAD (coronary artery disease) Cardiac pacemaker in situ Chronic atrial fibrillation COPD (chronic obstructive pulmonary disease) HTN (hypertension) Hyperlipidemia Malignant neoplasm of lateral wall of urinary bladder Pulmonary hypertension Surgical History H/O transurethral resection of prostate History of appendectomy History of back surgery History of placement of leadless cardiac pacemaker History of prostate surgery Stented coronary artery Family History Family History Father Lung cancer Cancer Mother No problems noted. Social History Social History Household Members: Spouse Are you a primary skin care technician to a significant other at home: No Do you presently have visiting nurse or other home services: No Alcohol intake: never Patient Tobacco Use Status: Former Tobacco user Quit Date: age 65 Use of substances other than those prescribed or required for medical reasons: No Advance Directives: Yes Advance Directives on File: Yes Advance Directives Date on File: 08/10/14 Current occupational status: retired Physical Exam ED Vital Signs: Vital Signs - 24 hr 09/20/21 10:56 09/20/21 12:40 Temperature 98.1 F Pulse Rate 61 81 Respiratory Rate 15 30 H Blood Pressure 135/70 126/71 Pulse Oximetry 100 94 BMI result Body Mass Index 22.4 Const General: cooperative, no acute distress, alert and awake Nutritional Appearance: well nourished Orientation/consciousness: patient oriented x3 Limitations: no limitations HENMT Head: Yes normal to inspection and Yes atraumatic Ears: hearing grossly normal bilaterally and external ears normal General nose exam: Normal external nose present, no nasal discharge noted and no epistaxis Face and sinus: Yes normal facial exam, No abrasion and No laceration Mouth: Normal oral and palatal mucosa present, no drooling and no muffled voice Eyes General: appearance normal, both eyes and all related structures Periorbital: periorbital findings normal Eyelids: Yes eyelids normal Conjunctivae: conjunctivae normal Pupils: Equal, round and reactive pupils present EOM: EOMs intact bilaterally Neck Neck: Yes normal visual inspection, Yes full ROM and Yes no lymphadenopathy Chest Chest palpation & inspection: normal inspection of the chest Resp Effort & Inspection: normal respiratory effort and able to speak in complete sentences Auscultation: clear to auscultation bilaterally Cardio Rate: regular rate Rhythm: regular rhythm GI Inspection: Yes normal to inspection Neuro General: patient oriented x3 and moves all extremities Cranial nerves: Yes Equal, round and reactive pupils present Cognition (Neuro): normal cognition Motor exam (neuro): 5/5 motor strength present throughout Sensory Exam: Normal double simultaneous stimulation for sensation Coordination: [id number] test normal Extrem General: Yes normal to inspection, Yes full ROM and Yes capillary refill normal Psych Appearance: grossly normal Mental Status: mental status grossly normal Affect: normal affect Attitude: cooperative Thought process: Normal thought process present Thought content: Normal thought content present Insight: Good insight present (Psych) Medical Decision Making [facility] Narrative Medical decision making narrative: Patient is a 85 year old male presenting to the emergency department today with hematuria. Patient's physical exam was unremarkable. Patient's blood work was unremarkable, including a normal hemoglobin. Patient's urine showed a large amount of blood. Patient's EKG showed a pacemaker. Patient's chest x-ray showed mild blunting of CP angle from pleural thickening and effusion. I explained my physical exam findings as well as all test results to the patient and the patient's . I answered all questions asked by the patient and the patient's . I spoke to Dr. Watters, via [employer] who recommended the patient hold his Xarelto for 3-4 days and follow up outpatient with him. I stressed the importance of the patient taking his medication as prescribed and holding his Xarelto for 3-4 days. I stressed the importance of the patient following up with his primary care provider and with Dr. Watters. I stressed the importance of the patient returning to the emergency department immediately if his symptoms were to worsen or if he were to develop any dizziness, shortness of breath, difficulty breathing, chest pain, blurry vision, loss of vision, nausea, vomiting, abdominal pain, fever, chills, back pain, or any other complaints. Patient and the patient's verbalized agreement and understanding with this treatment plan and discharge. Differential Diagnosis Differential Diagnosis: hematuria, post-op complication, history of COPD Medical Records Medical records reviewed: Yes I reviewed the patient's medical records. Lab Data Lab results reviewed: Yes I reviewed the patient's lab results. Result diagrams: 09/20/21 11:22 09/20/21 11: Labs: Lab Results 09/20/21 09/20/21 09/20/21 Range/Units 11:22 11: 11:22 WBC 5.6 (4.8-10.8) X10*3/uL RBC 4.07 L (4.60-5.80) X10*6/uL Hgb 12.5 L (14.0-18.0) g/dl Hct 38.6 L (42.0-52.0) % MCV 94.8 (80.0-98.0) fL MCH 30.7 (27.0-33.0) pg MCHC 32.4 (31.0-36.0) g/dl RDW 14.8 (11.0-16.0) % Plt Count 210 (160-400) X10*3/uL MPV 9.7 (9.4-12.4) fL Immature Gran % (Auto) 0.5 H (0.0-0.4) % Neut % (Auto) 87.7 H (45-73) % Lymph % (Auto) 6.4 L (20-40) % Smith % (Auto) 2.8 (2-11) % Eos % (Auto) 2.1 (0-4) % Baso % (Auto) 0.5 (0-2) % Lymph # (Auto) 0.4 L (1.2-4.9) X10*3/uL Smith # (Auto) 0.2 (0.1-1.2) X10*3/uL Eos # (Auto) 0.1 (0.0-0.4) X10*3/uL Baso # (Auto) 0.0 (0.0-0.2) X10*3/uL Abs Immat Gran (auto) 0.03 (0.00-0.03) X10*3/uL Absolute Neuts (auto) 4.9 (2.0-8.3) x10*3/uL Absolute Nucleated RBC 0.000 (0.0-0.012) X10*3/uL Nucleated RBC % (auto) 0.0 (0.0-0.2) /100WBC Sodium 135 (135-145) mmol/L Potassium 4.6 (3.3-5.1) mmol/L Chloride 105 (96-108) mmol/L Carbon Dioxide 23 (22-29) mmol/L Anion Gap 12 (12-20) BUN 27 H (9-16) mg/dL Creatinine 0.85 (0.5-1.4) mg/dL Estim Creat Clear Calc 68.0 Estimated GFR > 60 Fasting Glucose 99 (60-99) mg/dL Calcium 8.7 (8.4-10.2) mg/dL Total Bilirubin 1.8 H (0.0-1.0) mg/dL AST 23 (5-37) U/L ALT 11 (0-40) U/L Alkaline Phosphatase 101 (39-117) U/L Troponin I High Sens 19.2 (<3.5-35.0) ng/L Total Protein 6.7 (6.5-8.0) g/dL Albumin 3.8 (3.5-5.0) g/dL Urine Color Urine Appearance Urine pH (5.0-8.0) Ur Specific [place] (1.005-1.025) Urine Protein Urine Glucose (UA) (NEG) MG/DL Urine Ketones (NEG) MG/DL Urine Blood (NEG) Urine Nitrite Ur Leukocyte Esterase (NEG) Urine RBC (0) /HPF Urine WBC (0-4) /HPF Ur Squamous Epith Cells /LPF Amorphous Sediment /LPF Urine Bacteria /LPF Blood Type Antibody Screen 09/20/21 09/20/21 Range/Units 11:22 12:42 WBC (4.8-10.8) X10*3/uL RBC (4.60-5.80) X10*6/uL Hgb (14.0-18.0) g/dl Hct (42.0-52.0) % MCV (80.0-98.0) fL MCH (27.0-33.0) pg MCHC (31.0-36.0) g/dl RDW (11.0-16.0) % Plt Count (160-400) X10*3/uL MPV (9.4-12.4) fL Immature Gran % (Auto) (0.0-0.4) % Neut % (Auto) (45-73) % Lymph % (Auto) (20-40) % Smith % (Auto) (2-11) % Eos % (Auto) (0-4) % Baso % (Auto) (0-2) % Lymph # (Auto) (1.2-4.9) X10*3/uL Smith # (Auto) (0.1-1.2) X10*3/uL Eos # (Auto) (0.0-0.4) X10*3/uL Baso # (Auto) (0.0-0.2) X10*3/uL Abs Immat Gran (auto) (0.00-0.03) X10*3/uL Absolute Neuts (auto) (2.0-8.3) x10*3/uL Absolute Nucleated RBC (0.0-0.012) X10*3/uL Nucleated RBC % (auto) (0.0-0.2) /100WBC Sodium (135-145) mmol/L Potassium (3.3-5.1) mmol/L Chloride (96-108) mmol/L Carbon Dioxide (22-29) mmol/L Anion Gap (12-20) BUN (9-16) mg/dL Creatinine (0.5-1.4) mg/dL Estim Creat Clear Calc Estimated GFR Fasting Glucose (60-99) mg/dL Calcium (8.4-10.2) mg/dL Total Bilirubin (0.0-1.0) mg/dL AST (5-37) U/L ALT (0-40) U/L Alkaline Phosphatase (39-117) U/L Troponin I High Sens (<3.5-35.0) ng/L Total Protein (6.5-8.0) g/dL Albumin (3.5-5.0) g/dL Urine Color RED A Urine Appearance TURBID Urine pH 6.5 (5.0-8.0) Ur Specific [place] 1.020 (1.005-1.025) Urine Protein TNP Urine Glucose (UA) NEG (NEG) MG/DL Urine Ketones 5 (NEG) MG/DL Urine Blood 3+ H (NEG) Urine Nitrite TNP Ur Leukocyte Esterase 1+ H (NEG) Urine RBC TNTC H (0) /HPF Urine WBC 1-4 (0-4) /HPF Ur Squamous Epith Cells NONE /LPF Amorphous Sediment 2+ /LPF Urine Bacteria NONE /LPF Blood Type B Positive Antibody Screen NEGATIVE Imaging Data Chest x-ray: Attestation: I personally reviewed and interpreted this imaging study as follows: My impression: No acute fractures. Radiologist's impression: EXAMINATION: XR CHEST CLINICAL INFORMATION: Weakness. History of COPD. COMPARISON: None TECHNIQUE: 2 views of the chest were obtained. FINDINGS: The lungs are well-expanded with mild blunting of bilateral CP angle from pleural thickening or effusion. The heart size is enlarged. Pulmonary vascularity is within normal limits. No gross bony abnormality seen. XR/XR chest 2V IMPRESSION: Mild blunting of CP angle from pleural thickening and effusion. Dictated By: Oliverio Murphy MD Signed By: Electronically signed by Oliverio Murphy MD 09/20/21 1148 ECG Data Attestation: I personally reviewed and interpreted this ECG as follows: Prior ECG tracings: available for review Interpretation: Vent. Rate: 062 BPM ? ? Atrial Rate: 182 BPM P-R Int: 000 ms? QRS Dur: 162 ms QT Int: 478 ms ? ? ? P-R-T Axes: 000 134 028 degrees QTc Int: 485 ms ? Ventricular-paced rhythm Abnormal ECG When compared with ECG of 04-FEB-2019 08:15, Electronic ventricular pacemaker has replaced Atrial fibrillation Dictated By: Albert Cabrera MD Signed By: Electronically signed by Albert Cabrera MD 09/20/21 1235 Discharge Plan Discharge Clinical Impression: Hematuria, Bladder cancer Patient Disposition: Home, Self-Care Instructions: Hematuria (ED) Additional Instructions: STOP your Xarelto for 3-4 days. Follow up with Dr. Watters your urologist and your primary care provider. Return to the emergency department immediately if your symptoms worsen or if you develop any dizziness, shortness of breath, difficulty breathing, chest pain, blurry vision, loss of vision, nausea, vomiting, abdominal pain, fever, chills, back pain, or any other complaints. Prescriptions: No Action Stiolto Respimat 2.5-2.5 mcg/actuation mist 2 puff inhalation Q24H 30 Days Qty: 4 5RF amlodipine 5 mg tablet 5 mg PO DAILY Qty: 90 3RF finasteride 5 mg tablet 5 mg PO DAILY Qty: 90 3RF tamsulosin 0.4 mg capsule 0.4 mg PO DAILY 30 Days Qty: 90 3RF albuterol sulfate 90 mcg/actuation HFA aerosol inhaler 2 puff inhalation Q6H PRN (Reason: Wheezing) 0RF potassium chloride 10 mEq capsule, extended release 10 meq PO DAILY 0RF atorvastatin 20 mg tablet 20 mg PO DAILY 0RF Xarelto 20 mg tablet 20 mg PO DAILY 0RF Rx Instructions: must administer with evening meal furosemide 40 mg tablet 40 mg PO DAILY 0RF Referrals: Murray Watters MD [Physician] - 2 days Gregory Trimble MD [Primary Care Provider] - 2 days Print Language: Hebrew
--- NOTE | 2021-09-20 11:07 | ECG_ITS ---
Test Reason : weakness Blood Pressure : / mmHG Vent. Rate : 062 BPM Atrial Rate : 182 BPM P-R Int : 000 ms QRS Dur : 162 ms QT Int : 478 ms P-R-T Axes : 000 134 028 degrees QTc Int : 485 ms Ventricular-paced rhythm Abnormal ECG When compared with ECG of 04-FEB-2019 08:15, Electronic ventricular pacemaker has replaced Atrial fibrillation Referred By: Amy Goss Electronically Signed By:JAE JO MD
[2021-09-20 11:29] LABS: MANUAL DIFF FLAG NO
[2021-09-20 11:33] LABS: Basophils Percent Auto 0.5 % (0-2); Eosinophils Absolute Auto 0.1 X10*3/uL (0.0-0.4); Eosinophils Percent Auto 2.1 % (0-4); Hematocrit 38.6 % (42.0-52.0); Hemoglobin 12.5 g/dl (14.0-18.0); Imm Gran Abs Auto 0.03 X10*3/uL (0.00-0.03); Imm Gran Pct Auto 0.5 % (0.0-0.4); Lymphocytes Absolute Auto 0.4 X10*3/uL (1.2-4.9); Lymphocytes Percent Auto 6.4 % (20-40); Mean Corpuscular HGB Conc 32.4 g/dl (31.0-36.0); Mean Corpuscular Hemoglobin 30.7 pg (27.0-33.0); Mean Corpuscular Volume 94.8 fL (80.0-98.0); Mean Platelet Volume 9.7 fL (9.4-12.4); Monocytes Absolute Auto 0.2 X10*3/uL (0.1-1.2); Monocytes Percent Auto 2.8 % (2-11); Neutrophils Absolute Auto 4.9 x10*3/uL (2.0-8.3); Neutrophils Percent Auto 87.7 % (45-73); Platelet Count 210 X10*3/uL (160-400); Red Blood Count 4.07 X10*6/uL (4.60-5.80); Red Cell Distribution Width 14.8 % (11.0-16.0); White Blood Count 5.6 X10*3/uL (4.8-10.8)
[2021-09-20 11:54] LABS: Troponin-I High Sensitivity 19.2 ng/L (<3.5-35.0)
[2021-09-20 12:03] LABS: Alanine Aminotransferase 11 U/L (0-40); Albumin Level 3.8 g/dL (3.5-5.0); Alkaline Phosphatase 101 U/L (39-117); Anion Gap 12 (12-20); Aspartate Amino Transferase 23 U/L (5-37); Bilirubin Total 1.8 mg/dL (0.0-1.0); Blood Urea Nitrogen 27 mg/dL (9-16); Calcium 8.7 mg/dL (8.4-10.2); Carbon Dioxide 23 mmol/L (22-29); Chloride 105 mmol/L (96-108); Estimated Glomerular Filt Rate > 60; Glucose Fasting 99 mg/dL (60-99); Potassium 4.6 mmol/L (3.3-5.1); Sodium 135 mmol/L (135-145); Total Protein 6.7 g/dL (6.5-8.0)
[2021-09-20 12:40] VITALS: BP 126/71; PULSE 81; RESP 30; O2SAT 94
[2021-09-20 12:59] LABS: Appearance Urine TURBID; Color Urine RED; Glucose Urine UA NEG (NEG); Leukocyte Esterase Urine 1+ (NEG); PH 6.5 (5.0-8.0); UACC Culture Trigger YES; Urine Blood 3+ (NEG); Urine Ketones 5 MG/DL (NEG)
[2021-09-20 13:07] LABS: RBC Urine TNTC /HPF (0)
[2021-09-20 13:08] LABS: Amorphous Sediment Urine 2+ /LPF
[2021-09-20 14:26] VITALS: BP 142/72; PULSE 62; RESP 16
== END 2021-09-20 14:52 | disposition home or self-care (01) ==
PROVIDERS: Physician Assistant Medical; Emergency Provider Emergency Medicine; PCP Internal Medicine
DX: R31.9 Hematuria, unspecified (principal); C67.2 Malignant neoplasm of lateral wall of bladder; R53.1 Weakness; I11.0 Hypertensive heart disease with heart failure; I50.30 Unspecified diastolic (congestive) heart failure; E78.5 Hyperlipidemia, unspecified; J44.9 Chronic obstructive pulmonary disease, unspecified; Z95.0 Presence of cardiac pacemaker; I48.20 Chronic atrial fibrillation, unspecified; Z79.01 Long term (current) use of anticoagulants; Z79.02 Long term (current) use of antithrombotics/antiplatelets
CPT/HCPCS: 36415; 71046; 80053; 81001; 81003; 84484; 85025; 86850; 86900; 86901; 87086; 93005; 99283; 99284

== ENCOUNTER → 2021-09-24 10:55 | Outpatient (BNVA) | payer MEDICARE, OTHER, SELFPAY | PROVIDERS: PCP Internal Medicine; Visit Provider Urology | DX: N40.1 Benign prostatic hyperplasia with lower urinary tract symptoms (principal); N13.8 Other obstructive and reflux uropathy; C67.9 Malignant neoplasm of bladder, unspecified | CPT/HCPCS: Q3014 ==

== ENCOUNTER → 2021-10-10 14:41 | Outpatient (BNVA) | payer MEDICARE, OTHER, SELFPAY | PROVIDERS: PCP Internal Medicine; Visit Provider Internal Medicine | DX: J96.90 Respiratory failure, unspecified, unspecified whether with hypoxia or hypercapnia (principal); J44.9 Chronic obstructive pulmonary disease, unspecified; I27.20 Pulmonary hypertension, unspecified; F41.9 Anxiety disorder, unspecified | CPT/HCPCS: 99212 ==

== ENCOUNTER → 2021-11-11 14:21 | Outpatient (BNVA) | payer MEDICARE, OTHER, SELFPAY | PROVIDERS: PCP Internal Medicine; Visit Provider Internal Medicine | DX: J44.9 Chronic obstructive pulmonary disease, unspecified (principal); J96.90 Respiratory failure, unspecified, unspecified whether with hypoxia or hypercapnia; I50.30 Unspecified diastolic (congestive) heart failure; I25.10 Atherosclerotic heart disease of native coronary artery without angina pectoris; I48.20 Chronic atrial fibrillation, unspecified; I73.00 Raynaud's syndrome without gangrene | CPT/HCPCS: 94618; 99212 ==

== ENCOUNTER 2021-11-20 15:54 | Inpatient (IN) | payer MEDICARE, OTHER, SELFPAY ==
--- NOTE | ~2021-11-20 | XR_ITS ---
EXAMINATION: XR CHEST CLINICAL INFORMATION: Shortness of breath, CHF, COPD. COMPARISON: 09/20/2021 chest radiographs. TECHNIQUE: Frontal view of the chest was obtained. FINDINGS: Very small bilateral pleural effusions are seen. The upper lung garcia are clear. The heart is mildly enlarged. The mediastinal structures are unremarkable. A leadless pacemaker device is again noted in place. XR/XR chest 1V IMPRESSION: Very small bilateral pleural effusions and mild cardiac enlargement without overt congestion or focal infiltrate.
--- NOTE | 2021-11-20 16:03 | ECG_ITS ---
Test Reason : SOB Blood Pressure : / mmHG Vent. Rate : 085 BPM Atrial Rate : 073 BPM P-R Int : 000 ms QRS Dur : 158 ms QT Int : 416 ms P-R-T Axes : 000 136 -14 degrees QTc Int : 495 ms Ventricular-paced rhythm Abnormal ECG When compared with ECG of 20-SEP-2021 11:10, Vent. rate has increased BY 23 BPM Referred By: Radha Powers Electronically Signed By:Juan Miguel Goldman
--- NOTE | 2021-11-20 16:04 | ED_ITS ---
HPI - SOB/Dyspnea General Chief Complaint: Dyspnea Stated Complaint: SOB Time Seen by Provider: 11/20/21 15:57 Source: patient and EMS Mode of arrival: EMS Limitations: no limitations History of Present Illness HPI Narrative: patient comes to the emergency room complaining of worsening of shortness of breath and bilateral lower extremity swelling. Patient states that for the last 2-3 months, he has noticed that gradually he is getting more weight, his legs keep getting more swollen. Patient was recently started on 24/7 oxygen for COPD. Exercise tolerance has greatly reduced over the last couple of weeks, even with oxygen. Patient denies any recent URI or UTI Infections, no vomiting or diarrhea. Patient denies chest pain. Related Data Home Medications Medication Instructions Recorded Confirmed albuterol sulfate 90 mcg/actuation 2 puff INHALATION Q6H PRN g 06/15/20 10/10/21 aerosol inhaler atorvastatin 20 mg tablet 20 mg PO DAILY tab 06/15/20 10/10/21 potassium chloride 10 mEq 10 meq PO DAILY cap 06/15/20 10/10/21 capsule,extended release rivaroxaban 20 mg tablet (Xarelto) 20 mg PO DAILY tab 07/24/20 10/10/21 furosemide 40 mg tablet 80 mg PO DAILY tab 10/10/21 10/10/21 Previous Rx's Medication Instructions Recorded tiotropium 2.5 mcg-olodaterol 2.5 2 puff INHALATION Q24H 30 Days #4 g 08/08/20 mcg/actuation mist for inhalation (Stiolto Respimat) amlodipine 5 mg tablet 5 mg PO DAILY #90 tab 04/29/21 finasteride 5 mg tablet 5 mg PO DAILY #90 tab 08/05/21 tamsulosin 0.4 mg capsule 0.4 mg PO DAILY 30 Days #90 cap 08/05/21 lorazepam 0.5 mg tablet 0.5 mg PO BID PRN 30 Days #30 tab 10/10/21 Allergies Allergy/AdvReac Type Severity Reaction Status Date / Time No Known Allergies Allergy Verified 11/11/21 15:13 [No Known Allergies*] Review of Systems Review of Systems: Constitutional : No Weight loss, No Fever, No Chills, No Night Sweats, No Fatigue, No Malaise ENT/Mouth : No Hearing loss, No Ear Pain, No Nasal Congestion, No Sinus Pain, No Hoarseness, No sore throat, No Rhinorrhea, No Swallowing Difficulty Eyes: No Eye Pain, No Swelling, No Redness, No Foreign Body, No Discharge, No Vision Changes Cardiovascular : No Chest Pain, complaining of worsening dyspnea on exertion, worsening orthopnea, worsening lower extremity edema Respiratory : No Cough, No Sputum, No Wheezing, No Smoke Exposure Gastrointestinal : No Nausea, No Vomiting, No Diarrhea, No Constipation, No abdominal Pain, No Hematochezia, No Melena Genitourinary : no irregular bleeding, No Dysuria, No Urinary Frequency, No Hematuria, No Urinary Incontinence, No Urgency, No Flank Pain, No Urinary Flow Changes, No Hesitancy Musculoskeletal : No joint pain, No Myalgias, No Joint Swelling Skin : No Skin Lesions, No rash Neuro : No Weakness, No Numbness, No Paresthesias, No Loss of Consciousness, No Dizziness, No Headache Psych : No Anxiety/Panic, No Depression, No SI/HI/AH/VH, No Social Issues, Heme/Lymph: No Bruising, No Bleeding,No Lymphadenopathy Endocrine : No Polyuria, No Polydipsia, No Temperature Intolerance [facility] Past Medical History Medical History (Updated 11/20/21 @ 18:44 by Radha Powers MD) (HFpEF) heart failure with preserved ejection fraction Anxiety Bradycardia CAD (coronary artery disease) Cardiac pacemaker in situ Chronic atrial fibrillation COPD (chronic obstructive pulmonary disease) COPD (chronic obstructive pulmonary disease) HTN (hypertension) Hyperlipidemia Malignant neoplasm of lateral wall of urinary bladder Pulmonary hypertension Raynaud disease Respiratory failure Surgical History H/O transurethral resection of prostate History of appendectomy History of back surgery History of placement of leadless cardiac pacemaker History of prostate surgery Stented coronary artery Family History Family History Father Lung cancer Cancer Mother No problems noted. Social History Social History Household Members: Spouse Are you a primary childcare worker to a significant other at home: No Do you presently have visiting nurse or other home services: No Alcohol intake: never Patient Tobacco Use Status: Former Tobacco user Quit Date: age 65 Advance Directives: Yes Advance Directives on File: Yes Advance Directives Date on File: 09/17/21 Current occupational status: retired Physical Exam Vital Signs: Vital Signs: Last Vital Signs Temp 98.2 F 11/20/21 16:29 Pulse 91 11/20/21 16:29 Resp 25 H 11/20/21 16:29 BP 120/71 11/20/21 16:29 Pulse Ox 96 11/20/21 16:29 Oxygen Flow Rate 3 11/20/21 16:15 BMI result Body Mass Index 23.7 Const: Other: Appearance: Alert. Oriented X3. No acute distress. Eyes: Pupils equal, round and reactive to light. ENT: Pharynx normal. Neck: Normal inspection. Neck supple. No lymph nodes noted. No crepitus CVS: Normal heart rate and rhythm. Pulses normal. Normal S1 and S2 Respiratory: No respiratory distress. minimal bibasilar crackles,. No Wheezing. No rales , saturating 95% on 4 L. Abdomen: Soft and nontender. No rigidity. No distention. Skin: Skin warm and dry. Normal skin color. Normal skin turgor. Extremities: +2 pitting edema, healing ulcers in bilateral lower extremities Neuro: Oriented X 3. No motor deficit. No sensory deficit. Moving all extremities. No slurred speech. CN 2 through 12 grossly intact Psych: calm, cooperative, normal affect Course Course Course Narrative: All of patient's labs and imagingare pending. Patient's BNP is 3100, baseline is 400. Lactic acid elevation likely secondary to hypoxia, sepsis is not suspected. Chest x-ray shows small bilateral pleural effusions. She will be admitted for CHF exacerbation. Patient given 40 mg of Lasix. Patient saturating 96% on his usual 3 L of oxygen. I discussed the EKG changes with Dr. Goldman, they are very minor, likely rela hpuong to CHF, no acute coronary process. MDM - SOB/Dyspnea Lab Data Result diagrams: 11/20/21 17:01 11/20/21 17:01 Labs: Lab Results 11/20/21 11/20/21 11/20/21 Range/Units 17:00 17:01 17:01 WBC 6.1 (4.8-10.8) X10*3/uL RBC 4.53 L (4.60-5.80) X10*6/uL Hgb 13.6 L (14.0-18.0) g/dl Hct 43.6 (42.0-52.0) % MCV 96.2 (80.0-98.0) fL MCH 30.0 (27.0-33.0) pg MCHC 31.2 (31.0-36.0) g/dl RDW 16.9 H (11.0-16.0) % Plt Count 234 (160-400) X10*3/uL MPV 9.8 (9.4-12.4) fL Immature Gran % (Auto) 0.3 (0.0-0.4) % Neut % (Auto) 86.8 H (45-73) % Lymph % (Auto) 6.1 L (20-40) % [place] % (Auto) 6.0 (2-11) % Eos % (Auto) 0.3 (0-4) % Baso % (Auto) 0.5 (0-2) % Lymph # (Auto) 0.4 L (1.2-4.9) X10*3/uL [place] # (Auto) 0.4 (0.1-1.2) X10*3/uL Eos # (Auto) 0.0 (0.0-0.4) X10*3/uL Baso # (Auto) 0.0 (0.0-0.2) X10*3/uL Abs Immat Gran (auto) 0.02 (0.00-0.03) X10*3/uL Absolute Neuts (auto) 5.3 (2.0-8.3) x10*3/uL Absolute Nucleated RBC 0.000 (0.0-0.012) X10*3/uL Nucleated RBC % (auto) 0.0 (0.0-0.2) /100WBC PT (9.9-13.0) SEC INR (0.9-1.1) Sodium 140 (135-145) mmol/L Potassium 3.7 (3.3-5.1) mmol/L Chloride 107 (96-108) mmol/L Carbon Dioxide 23 (22-29) mmol/L Anion Gap 14 (12-20) BUN 34 H (9-16) mg/dL Creatinine 1.04 (0.5-1.4) mg/dL Estim Creat Clear Calc 56.5 Estimated GFR > 60 Random Glucose 103 (60-115) mg/dL Lactic Acid (0.5-2.0) mmol/L Calcium 8.7 (8.4-10.2) mg/dL Magnesium 2.3 (1.6-2.6) mg/dL Total Bilirubin 2.0 H (0.0-1.0) mg/dL Direct Bilirubin 1.2 H (0.0-0.5) mg/dL AST 23 (5-37) U/L ALT 9 (0-40) U/L Alkaline Phosphatase 122 H D (39-117) U/L Troponin I High Sens (<3.5-35.0) ng/L B-Natriuretic Peptide (<100) pg/mL Total Protein 7.1 (6.5-8.0) g/dL Albumin 3.6 (3.5-5.0) g/dL COVID-19 (DENICE) Negative (Negative) COVID-19 Clin Com See Note 11/20/21 11/20/21 11/20/21 Range/Units 17:01 17:01 17:01 WBC (4.8-10.8) X10*3/uL RBC (4.60-5.80) X10*6/uL Hgb (14.0-18.0) g/dl Hct (42.0-52.0) % MCV (80.0-98.0) fL MCH (27.0-33.0) pg MCHC (31.0-36.0) g/dl RDW (11.0-16.0) % Plt Count (160-400) X10*3/uL MPV (9.4-12.4) fL Immature Gran % (Auto) (0.0-0.4) % Neut % (Auto) (45-73) % Lymph % (Auto) (20-40) % [place] % (Auto) (2-11) % Eos % (Auto) (0-4) % Baso % (Auto) (0-2) % Lymph # (Auto) (1.2-4.9) X10*3/uL [place] # (Auto) (0.1-1.2) X10*3/uL Eos # (Auto) (0.0-0.4) X10*3/uL Baso # (Auto) (0.0-0.2) X10*3/uL Abs Immat Gran (auto) (0.00-0.03) X10*3/uL Absolute Neuts (auto) (2.0-8.3) x10*3/uL Absolute Nucleated RBC (0.0-0.012) X10*3/uL Nucleated RBC % (auto) (0.0-0.2) /100WBC PT 48.3 H (9.9-13.0) SEC INR 4.1 H (0.9-1.1) Sodium (135-145) mmol/L Potassium (3.3-5.1) mmol/L Chloride (96-108) mmol/L Carbon Dioxide (22-29) mmol/L Anion Gap (12-20) BUN (9-16) mg/dL Creatinine (0.5-1.4) mg/dL Estim Creat Clear Calc Estimated GFR Random Glucose (60-115) mg/dL Lactic Acid 2.2 H* (0.5-2.0) mmol/L Calcium (8.4-10.2) mg/dL Magnesium (1.6-2.6) mg/dL Total Bilirubin (0.0-1.0) mg/dL Direct Bilirubin (0.0-0.5) mg/dL AST (5-37) U/L ALT (0-40) U/L Alkaline Phosphatase (39-117) U/L Troponin I High Sens 24.4 (<3.5-35.0) ng/L B-Natriuretic Peptide 3161 H (<100) pg/mL Total Protein (6.5-8.0) g/dL Albumin (3.5-5.0) g/dL COVID-19 (DENICE) (Negative) COVID-19 Clin Com Imaging Data Chest x-ray: Radiologist's impression: FINDINGS: Very small bilateral pleural effusions are seen. The upper lung garcia are clear. The heart is mildly enlarged. The mediastinal structures are unremarkable. A leadless pacemaker device is again noted in place. XR/XR chest 1V IMPRESSION: Very small bilateral pleural effusions and mild cardiac enlargement without overt congestion or focal infiltrate. ? Critical Care Time Critical Care Time Critical Care Time: Yes Total Critical Care Time: 45 Attestation: I have personally provided critical care time. Time includes review of lab data, radiology results, discussion with consultants, and monitoring for potential decompensation. Intervention performed as documented. Discharge Plan Discharge Clinical Impression: Acute exacerbation of CHF (congestive heart failure) Patient Disposition: Admitted As Inpatient
[2021-11-20 16:15] VITALS: BP 124/80; BP 126/73; PULSE 116; PULSE 91; RESP 18; TEMP 37; O2SAT 94; O2SAT 97; BMI 23.7
[2021-11-20 16:29] VITALS: BP 120/71; PULSE 91; RESP 25; TEMP 36.8; O2SAT 96
[2021-11-20 17:08] LABS: MANUAL DIFF FLAG NO
[2021-11-20 17:15] LABS: Basophils Percent Auto 0.5 % (0-2); Eosinophils Percent Auto 0.3 % (0-4); Hematocrit 43.6 % (42.0-52.0); Hemoglobin 13.6 g/dl (14.0-18.0); Imm Gran Abs Auto 0.02 X10*3/uL (0.00-0.03); Imm Gran Pct Auto 0.3 % (0.0-0.4); Lymphocytes Absolute Auto 0.4 X10*3/uL (1.2-4.9); Lymphocytes Percent Auto 6.1 % (20-40); Mean Corpuscular HGB Conc 31.2 g/dl (31.0-36.0); Mean Corpuscular Volume 96.2 fL (80.0-98.0); Mean Platelet Volume 9.8 fL (9.4-12.4); Monocytes Absolute Auto 0.4 X10*3/uL (0.1-1.2); Neutrophils Absolute Auto 5.3 x10*3/uL (2.0-8.3); Neutrophils Percent Auto 86.8 % (45-73); Platelet Count 234 X10*3/uL (160-400); Red Blood Count 4.53 X10*6/uL (4.60-5.80); Red Cell Distribution Width 16.9 % (11.0-16.0); White Blood Count 6.1 X10*3/uL (4.8-10.8)
[2021-11-20 17:21] LABS: INTERNATIONAL NORM RATIO 4.1 (0.9-1.1); Prothrombin Time 48.3 SEC (9.9-13.0)
[2021-11-20 17:25] LABS: COVID-19 Test Negative (Negative)
[2021-11-20 17:40] LABS: Lactic Acid 2.2 mmol/L (0.5-2.0)
[2021-11-20 17:42] LABS: B Type Natriuretic Peptide 3161 pg/mL (<100); Troponin-I High Sensitivity 24.4 ng/L (<3.5-35.0)
[2021-11-20 18:01] LABS: Alanine Aminotransferase 9 U/L (0-40); Albumin Level 3.6 g/dL (3.5-5.0); Alkaline Phosphatase 122 U/L (39-117); Anion Gap 14 (12-20); Aspartate Amino Transferase 23 U/L (5-37); Bilirubin Direct 1.2 mg/dL (0.0-0.5); Blood Urea Nitrogen 34 mg/dL (9-16); Calcium 8.7 mg/dL (8.4-10.2); Carbon Dioxide 23 mmol/L (22-29); Chloride 107 mmol/L (96-108); Creatinine Clr Calc Pharmacy 56.5; Estimated Glomerular Filt Rate > 60; Glucose Random 103 mg/dL (60-115); Magnesium 2.3 mg/dL (1.6-2.6); Potassium 3.7 mmol/L (3.3-5.1); Sodium 140 mmol/L (135-145); Total Protein 7.1 g/dL (6.5-8.0)
[2021-11-20 18:44] VITALS: BP 124/77; PULSE 95; RESP 17; TEMP 36.6; O2SAT 95
[2021-11-20] MEDS: Furosemide 40 MG/4 ML VIAL IVPUSH (18:50)
[2021-11-20 19:06] LABS: Reflex Lactate? Lactic Acid Added
--- NOTE | 2021-11-20 19:14 | PHA.MEDREC ---
Pharmacy Consult ? Medication Reconciliation Pharmacy has completed the medication reconciliation[facility]
--- NOTE | 2021-11-20 19:55 | PC.NURSE ---
pt a&ox3, vss, denies any pain at this time, breathing even and unlabored. O2 94% on 3L, pt requesting food.
[2021-11-20 20:35] LABS: ~Lactic Acid-LAB USE ONLY 1.6 mmol/L (0.5-2.0)
--- NOTE | 2021-11-20 21:33 | PM.IMHP ---
History of Present Illness Date of Service: 11/20/21 Chief Complaint: shortness of breath 86-year-old male with a past medical history of hypertension, hyperlipidemia, CAD, CHF, AFib on Xarelto, history of bladder cancer, pulmonary hypertension on home oxygen, Raynaud's phenomena, COPD; presented to the hospital today with a chief complaint of shortness of breath. Patient reports that his the past 2 weeks he has been having shortness of breath which has been gradually worsening; also feels short of breath at rest and with minimal exertion; denies any chest pain or palpitations. Denies any cough or sputum production. Reports he has bilateral leg wounds and has been following with the wound clinic and they appear to be healing but noted to have increased leg swelling bilaterally; Reports he has been complaint with his home medications. Denies any excessive salt intake. Denies any GI symptoms. Review of all other systems is negative except mentioned above ER course: Per ER team patient noted to have elevated proBNP; bilateral leg swelling; leg wounds appears to be healing; concern for acute CHF. Admitted to the hospital for further management. Patient was given IV Lasix. [facility] Medical History (Updated 11/20/21 @ 18:44 by Radha Powers MD) (HFpEF) heart failure with preserved ejection fraction Anxiety Bradycardia CAD (coronary artery disease) Cardiac pacemaker in situ Chronic atrial fibrillation COPD (chronic obstructive pulmonary disease) COPD (chronic obstructive pulmonary disease) HTN (hypertension) Hyperlipidemia Malignant neoplasm of lateral wall of urinary bladder Pulmonary hypertension Raynaud disease Respiratory failure Family History Father Lung cancer Cancer Mother No problems noted. Surgical History H/O transurethral resection of prostate History of appendectomy History of back surgery History of placement of leadless cardiac pacemaker History of prostate surgery Stented coronary artery Social History Household Members: Spouse Are you a primary wound care physician to a significant other at home: No Do you presently have visiting nurse or other home services: No Alcohol intake: never Patient Tobacco Use Status: Former Tobacco user Quit Date: age 65 Advance Directives: Yes Advance Directives on File: Yes Advance Directives Date on File: 09/17/21 Current occupational status: retired Visible Measures Allergies Allergy/AdvReac Type Severity Reaction Status Date / Time No Known Allergies Allergy Verified 11/11/21 15:13 [No Known Allergies*] Active Medications: Current Medications Acetaminophen (Acetaminophen 325 Mg Tablet) 650 mg PO Q6H PRN PRN Reason: Pain, Mild (Pain Scale 1-3) Furosemide (Furosemide 40 Mg/4 Ml Vial) 40 mg IVPUSH BIDWM MAVERICK; Protocol Melatonin (Melatonin 3 Mg Tablet) 6 mg PO BEDTIME PRN PRN Reason: Insomnia Pharmacy Consult (Consult Rx Perform Med Rec) 1 each MISCELLANE ONCE PRN PRN Reason: Consult order Senna (Sennosides 8.6 Mg Tablet) 17.2 mg PO BEDTIME PRN PRN Reason: Constipation Sodium Chloride (0.9 % Sodium Chloride Flush 3 Ml Syringe) 3 ml IVFLUSH QSHIFT [facility] Home Medications Medication Instructions Recorded Confirmed Last Taken Type albuterol sulfate 90 mcg/actuation 2 puff INHALATION Q6H PRN g 06/15/20 11/20/21 Unknown History aerosol inhaler atorvastatin 20 mg tablet 20 mg PO DAILY tab 06/15/20 11/20/21 Unknown History potassium chloride 10 mEq 10 meq PO DAILY cap 06/15/20 11/20/21 Unknown History capsule,extended release rivaroxaban 20 mg tablet (Xarelto) 20 mg PO DAILY tab 07/24/20 11/20/21 11/20/21 History furosemide 40 mg tablet 40 mg PO DAILY tab 10/10/21 11/20/21 Unknown History ferrous sulfate 325 mg (65 mg 325 mg PO DAILY 11/20/21 11/20/21 Unknown History iron) tablet fluticasone propionate 50 1 spray INTRANASAL DAILY 11/20/21 11/20/21 Unknown History mcg/actuation nasal spray,suspension lorazepam 0.5 mg tablet 0.5 mg PO DAILY PRN 11/20/21 11/20/21 Unknown History mometasone 2 inh INHALATION DAILY 11/20/21 11/20/21 Unknown History Physical Exam Vital Signs and Narrative: Vital Signs: Last Vital Signs Temp 97.8 F 11/20/21 18:44 Pulse 95 11/20/21 18:44 Resp 17 11/20/21 18:44 BP 124/77 11/20/21 18:44 Pulse Ox 95 11/20/21 18:44 Oxygen Flow Rate 3 11/20/21 16:15 BMI result Body Mass Index 23.7 Gen: Appears be in no acute distress . On supplemental oxygen. Speaks in full sentences. HEENT: NCAT, Moist mucosa. Pulmonary: Mildly coarse breath sounds. CVS: Normal S1-S2 Abdomen: BS+, Soft, Nontender Extremities: Warm well perfused ; 2+ pitting edema; leg wounds appears to be healing. Neuro: Alert and awake. Results Labs CBC and Chem 7: 11/20/21 17:01 11/20/21 17:01 Labs: Laboratory Results - last 24 hr 11/20/21 11/20/21 11/20/21 17:00 17:01 17:01 MCV 96.2 MCH 30.0 MCHC 31.2 RDW 16.9 H Plt Count 234 MPV 9.8 Immature Gran % (Auto) 0.3 Neut % (Auto) 86.8 H Lymph % (Auto) 6.1 L [place] % (Auto) 6.0 Eos % (Auto) 0.3 Baso % (Auto) 0.5 Lymph # (Auto) 0.4 L [place] # (Auto) 0.4 Eos # (Auto) 0.0 Baso # (Auto) 0.0 Abs Immat Gran (auto) 0.02 Absolute Neuts (auto) 5.3 Absolute Nucleated RBC 0.000 Nucleated RBC % (auto) 0.0 PT INR Anion Gap 14 Estim Creat Clear Calc 56.5 Estimated GFR > 60 Random Glucose 103 Lactic Acid Lactic Acid F/U @ 2Hr Calcium 8.7 Magnesium 2.3 Total Bilirubin 2.0 H Direct Bilirubin 1.2 H AST 23 ALT 9 Alkaline Phosphatase 122 H D Troponin I High Sens B-Natriuretic Peptide Total Protein 7.1 Albumin 3.6 COVID-19 (DENICE) Negative COVID-19 Clin Com See Note 11/20/21 11/20/21 11/20/21 17:01 17:01 17:01 MCV MCH MCHC RDW Plt Count MPV Immature Gran % (Auto) Neut % (Auto) Lymph % (Auto) [place] % (Auto) Eos % (Auto) Baso % (Auto) Lymph # (Auto) [place] # (Auto) Eos # (Auto) Baso # (Auto) Abs Immat Gran (auto) Absolute Neuts (auto) Absolute Nucleated RBC Nucleated RBC % (auto) PT 48.3 H INR 4.1 H Anion Gap Estim Creat Clear Calc Estimated GFR Random Glucose Lactic Acid 2.2 H* Lactic Acid F/U @ 2Hr Calcium Magnesium Total Bilirubin Direct Bilirubin AST ALT Alkaline Phosphatase Troponin I High Sens 24.4 B-Natriuretic Peptide 3161 H Total Protein Albumin COVID-19 (DENICE) COVID-19 [employer] Com 11/20/21 20:18 MCV MCH MCHC RDW Plt Count MPV Immature Gran % (Auto) Neut % (Auto) Lymph % (Auto) [place] % (Auto) Eos % (Auto) Baso % (Auto) Lymph # (Auto) [place] # (Auto) Eos # (Auto) Baso # (Auto) Abs Immat Gran (auto) Absolute Neuts (auto) Absolute Nucleated RBC Nucleated RBC % (auto) PT INR Anion Gap Estim Creat Clear Calc Estimated GFR Random Glucose Lactic Acid Lactic Acid F/U @ 2Hr 1.6 Calcium Magnesium Total Bilirubin Direct Bilirubin AST ALT Alkaline Phosphatase Troponin I High Sens B-Natriuretic Peptide Total Protein Albumin COVID-19 (DENICE) COVID-19 Clin Com Imaging Radiologist's Impressions: Impressions Chest X-Ray 11/20/21 17:08 IMPRESSION: Very small bilateral pleural effusions and mild cardiac enlargement without overt congestion or focal infiltrate. Assessment and Plan (1) Acute exacerbation of CHF (congestive heart failure): Status: Acute Plan 86-year-old male with a past medical history of hypertension, hyperlipidemia, CAD, CHF, AFib on Xarelto, history of bladder cancer, pulmonary hypertension on home oxygen, Raynaud's phenomena, COPD; presented to the hospital today with a chief complaint of shortness of breath. noted to be in acute CHF. Admitted for further management. Acute on chronic CHF:HFpEF Echo 01/2021-> shows EF of 65-70%, inferior segment hypokinetic, moderately increased RV cavity size, biatrial enlargement, moderate to severe pulmonary hypertension. Will give the patient on Lasix 40 mg IV b.i.d. Daily weights and I's and O's Cardiology follow-up Bilateral leg wounds: Wound consult follow-up. History of AFib: Rate controlled. Continue home rivaroxaban History of hypertension: Hold home amlodipine in order to provide room for blood pressure while diuresing. History of BPH: Continue home Flomax, finasteride History of COPD: Stable DuoNebs p.r.n. DVT prophylaxis: Patient on Xarelto Code status: DNR /DNI. Quality Stroke Does the patient have a stroke diagnosis?: No VTE Prior VTE?: No VTE Risk Level:: Medical - moderate - high VTE Device Contraindication: Treatment Not Indicated VTE Drug Contraindication: N/A - Med Ordered
[2021-11-20 22:45] VITALS: BP 125/72; PULSE 70; RESP 17; TEMP 36.6; O2SAT 96
[2021-11-21] VITALS (13 sets, daily range): BP systolic 119–130; BP diastolic 64–82; PULSE 61–700; RESP 16–26; TEMP 36.2–37.2; O2SAT 95–100; BMI 22.5
--- NOTE | 2021-11-21 01:11 | PC.NURSE ---
PATIENT WAS REPOSITION ON LEFT SIDE ,WARM BLANKETS GIVEN .
[2021-11-21] MEDS: Melatonin 3 MG TABLET 6 MG PO (01:54)
[2021-11-21] MEDS: 0.9 % Sodium Chloride Flush 3 ML SYRINGE IVFLUSH ×4 (01:54→22:35)
[2021-11-21] MEDS: Acetaminophen 325 MG TABLET 650 MG PO (01:55)
[2021-11-21] MEDS: HYDROmorphone HCl 0.5 MG/0.5 ML SYRINGE IVPUSH (02:05)
--- NOTE | 2021-11-21 02:09 | PC.NURSE ---
medicated for pain per provider order.
--- NOTE | 2021-11-21 05:17 | PC.NURSE ---
pt a&o, no sob or chest pain at this time. pt repositioned for comfort. positive CMS to extremity.
[2021-11-21 07:18] LABS: MANUAL DIFF FLAG NO
[2021-11-21 07:21] LABS: Basophils Percent Auto 0.5 % (0-2); Eosinophils Absolute Auto 0.1 X10*3/uL (0.0-0.4); Eosinophils Percent Auto 1.4 % (0-4); Hematocrit 39.1 % (42.0-52.0); Hemoglobin 12.4 g/dl (14.0-18.0); Imm Gran Abs Auto 0.04 X10*3/uL (0.00-0.03); Imm Gran Pct Auto 0.7 % (0.0-0.4); Lymphocytes Absolute Auto 0.5 X10*3/uL (1.2-4.9); Mean Corpuscular HGB Conc 31.7 g/dl (31.0-36.0); Mean Corpuscular Hemoglobin 30.3 pg (27.0-33.0); Mean Corpuscular Volume 95.6 fL (80.0-98.0); Mean Platelet Volume 9.6 fL (9.4-12.4); Monocytes Absolute Auto 0.7 X10*3/uL (0.1-1.2); Monocytes Percent Auto 11.6 % (2-11); Neutrophils Absolute Auto 4.5 x10*3/uL (2.0-8.3); Neutrophils Percent Auto 77.8 % (45-73); Platelet Count 193 X10*3/uL (160-400); Red Blood Count 4.09 X10*6/uL (4.60-5.80); Red Cell Distribution Width 16.9 % (11.0-16.0); White Blood Count 5.8 X10*3/uL (4.8-10.8)
[2021-11-21 07:34] LABS: Anion Gap 13 (12-20); Blood Urea Nitrogen 33 mg/dL (9-16); Calcium 8.4 mg/dL (8.4-10.2); Carbon Dioxide 25 mmol/L (22-29); Chloride 108 mmol/L (96-108); Creatinine Clr Calc Pharmacy 61.9; Estimated Glomerular Filt Rate > 60; Glucose Random 91 mg/dL (60-115); Potassium 3.9 mmol/L (3.3-5.1); Sodium 142 mmol/L (135-145)
[2021-11-21] MEDS: Rivaroxaban 20 MG TABLET PO (10:18)
[2021-11-21] MEDS: Atorvastatin Calcium 20 MG TABLET PO (10:18)
[2021-11-21] MEDS: Ferrous Sulfate 324 MG TABLET.DR PO (10:18)
[2021-11-21] MEDS: Tamsulosin HCL 0.4 MG CAPSULE PO (10:18)
[2021-11-21] MEDS: Finasteride 5 MG TABLET PO (10:19)
[2021-11-21] MEDS: Furosemide 40 MG/4 ML VIAL IVPUSH ×2 (10:19→18:07)
[2021-11-21] MEDS: Fluticasone Propionate Nasal 16 GM SPRAY 1 SPRAY NOSTRIL-B (11:02)
--- NOTE | 2021-11-21 11:12 | MHC.CM.PN ---
IMM 11/21/21 Male 86 DX Acute CHF He lives with his . He has [facility] in place. He is receiving SN and PT at home. Pts states that he is very SOB 3L continuous is new. She also said, that he is now having difficulty with ADLs. DP home with resumption of [facility]. with transport provided by pts vs PT eval STR transport via BLS. He has been vaccinated 3x Moderna + 2 x Pfizer
[2021-11-21] MEDS: Albuterol Sulfate 90 MCG 8 GM INHALER 2 PUFF INHALE ×2 (11:17→19:48)
[2021-11-21] MEDS: Albuterol/Iprat 2.5/0.5MG 3 ML AMPUL.NEB INHALE ×2 (11:58→14:47)
--- NOTE | 2021-11-21 12:10 | HO.PM.IMPN ---
Subjective Subjective Date of Service: 11/21/21 Interval History: Complaining of persistent shortness of breath at rest, get worse with exertion, denies chest pain, no fevers no chills no acute issues since admission, Dumont catheter with 300 mL of clear urine. Review of Systems General no headache, no dizziness no fever chills. CVS no chest pain, no palpitation. Respiratory no cough, no sputum production Gastrointestinal no nausea, no vomiting, no abdominal pain Review of Systems: Yes all other systems are reviewed and are negative Physical Exam Vital Signs: Vital Signs: Last Vital Signs Temp 98.0 F 11/21/21 06:00 Pulse 700 H 11/21/21 12:01 Resp 20 11/21/21 12:01 BP 130/73 11/21/21 11:03 Pulse Ox 98 11/21/21 11:03 Oxygen Flow Rate 3 11/20/21 16:15 BMI result Body Mass Index 23.7 Const: Other: General awake alert x3, mild respiratory distress Neck + JVD. CVS regular rate rhythm, Respiratory lungs bibasilar crackles, diminished breath sound bilaterally Gastrointestinal abdomen soft, nontender, bowel sounds audible Extremities bilateral edema. Neuro nonfocal Psych appropriate affect Objective Data Active Medications Acetaminophen (Acetaminophen 325 Mg Tablet) 650 mg PO Q6H PRN PRN Reason: Pain, Mild (Pain Scale 1-3) Last Admin: 11/21/21 01:55 Dose: 650 mg Documented by: FLORIN Albuterol Sulfate (Albuterol Sulfate 90 Mcg 8 Gm Inhaler) 2 puff INHALE Q6H PRN PRN Reason: Wheezing Last Admin: 11/21/21 11:17 Dose: 2 puff Documented by: ALVARO Albuterol/Ipratropium (Albuterol/Iprat 2.5/0.5mg 3 Ml Ampul.Neb) 3 ml INHALE RQ6H WHILE AWAKE [facility] Atorvastatin Calcium (Atorvastatin Calcium 20 Mg Tablet) 20 mg PO DAILY [facility] Last Admin: 11/21/21 10:18 Dose: 20 mg Documented by: ALVARO Ferrous Sulfate (Ferrous Sulfate 324 Mg Tablet.) 324 mg PO DAILY [facility] Last Admin: 11/21/21 10:18 Dose: 324 mg Documented by: ALVARO Finasteride (Finasteride 5 Mg Tablet) 5 mg PO DAILY [facility] Last Admin: 11/21/21 10:19 Dose: 5 mg Documented by: ALVARO Fluticasone Propionate (Fluticasone Propionate Nasal 16 Gm [place]) 1 spray NOSTRIL-B DAILY [facility] Last Admin: 11/21/21 11:02 Dose: 1 spray Documented by: AVLARO Furosemide (Furosemide 40 Mg/4 Ml Vial) 40 mg IVPUSH BIDWM [facility]; Protocol Last Admin: 11/21/21 10:19 Dose: 40 mg Documented by: ALVARO Hydromorphone HCl (Hydromorphone Hcl 0.5 Mg/0.5 Ml Syringe) 0.5 mg IVPUSH Q6H PRN; Protocol PRN Reason: Breakthrough Pain Last Admin: 11/21/21 02:05 Dose: 0.5 mg Documented by: FLORIN Lorazepam (Lorazepam 0.5 Mg Tablet) 0.5 mg PO DAILY PRN PRN Reason: anxiety Melatonin (Melatonin 3 Mg Tablet) 6 mg PO BEDTIME PRN PRN Reason: Insomnia Last Admin: 11/21/21 01:54 Dose: 6 mg Documented by: FLORIN Non-Formulary Medication (Mometasone) 2 inhalation INHALE DAILY [facility] Pharmacy Consult (Consult Rx Perform Med Rec) 1 each MISCELLANE ONCE PRN PRN Reason: Consult order Rivaroxaban (Rivaroxaban 20 Mg Tablet) 20 mg PO DAILY [facility] Last Admin: 11/21/21 10:18 Dose: 20 mg Documented by: ALVARO Senna (Sennosides 8.6 Mg Tablet) 17.2 mg PO BEDTIME PRN PRN Reason: Constipation Sodium Chloride (0.9 % Sodium Chloride Flush 3 Ml Syringe) 3 ml IVFLUSH QSHIFT [facility] Last Admin: 11/21/21 10:22 Dose: 3 ml Documented by: ALVARO Tamsulosin HCl (Tamsulosin Hcl 0.4 Mg Capsule) 0.4 mg PO DAILY [facility] Last Admin: 11/21/21 10:18 Dose: 0.4 mg Documented by: ALVARO Labs CBC & Chem 7: 11/21/21 07:05 11/21/21 07:05 Labs: Laboratory Results - last 24 hr 11/20/21 11/20/21 11/20/21 17:00 17:01 17:01 MCV 96.2 MCH 30.0 MCHC 31.2 RDW 16.9 H Plt Count 234 MPV 9.8 Immature Gran % (Auto) 0.3 Neut % (Auto) 86.8 H Lymph % (Auto) 6.1 L [place] % (Auto) 6.0 Eos % (Auto) 0.3 Baso % (Auto) 0.5 Lymph # (Auto) 0.4 L [place] # (Auto) 0.4 Eos # (Auto) 0.0 Baso # (Auto) 0.0 Abs Immat Gran (auto) 0.02 Absolute Neuts (auto) 5.3 Absolute Nucleated RBC 0.000 Nucleated RBC % (auto) 0.0 PT INR Anion Gap 14 Estim Creat Clear Calc 56.5 Estimated GFR > 60 Random Glucose 103 Lactic Acid Lactic Acid F/U @ 2Hr Calcium 8.7 Magnesium 2.3 Total Bilirubin 2.0 H Direct Bilirubin 1.2 H AST 23 ALT 9 Alkaline Phosphatase 122 H D Troponin I High Sens B-Natriuretic Peptide Total Protein 7.1 Albumin 3.6 COVID-19 (DENICE) Negative COVID-19 [employer] Com See Note 11/20/21 11/20/21 11/20/21 17:01 17:01 17:01 MCV MCH MCHC RDW Plt Count MPV Immature Gran % (Auto) Neut % (Auto) Lymph % (Auto) [place] % (Auto) Eos % (Auto) Baso % (Auto) Lymph # (Auto) [place] # (Auto) Eos # (Auto) Baso # (Auto) Abs Immat Gran (auto) Absolute Neuts (auto) Absolute Nucleated RBC Nucleated RBC % (auto) PT 48.3 H INR 4.1 H Anion Gap Estim Creat Clear Calc Estimated GFR Random Glucose Lactic Acid 2.2 H* Lactic Acid F/U @ 2Hr Calcium Magnesium Total Bilirubin Direct Bilirubin AST ALT Alkaline Phosphatase Troponin I High Sens 24.4 B-Natriuretic Peptide 3161 H Total Protein Albumin COVID-19 (DENICE) COVID-My [employer] 11/20/21 11/21/21 11/21/21 20:18 07:05 07:05 MCV 95.6 MCH 30.3 MCHC 31.7 RDW 16.9 H Plt Count 193 MPV 9.6 Immature Gran % (Auto) 0.7 H Neut % (Auto) 77.8 H Lymph % (Auto) 8.0 L [place] % (Auto) 11.6 H Eos % (Auto) 1.4 Baso % (Auto) 0.5 Lymph # (Auto) 0.5 L [place] # (Auto) 0.7 Eos # (Auto) 0.1 Baso # (Auto) 0.0 Abs Immat Gran (auto) 0.04 H Absolute Neuts (auto) 4.5 Absolute Nucleated RBC 0.000 Nucleated RBC % (auto) 0.0 PT INR Anion Gap 13 Estim Creat Clear Calc 61.9 Estimated GFR > 60 Random Glucose 91 Lactic Acid Lactic Acid F/U @ 2Hr 1.6 Calcium 8.4 Magnesium Total Bilirubin Direct Bilirubin AST ALT Alkaline Phosphatase Troponin I High Sens B-Natriuretic Peptide Total Protein Albumin COVID-19 (DENICE) COVID-19 Clin Com Assessment and Plan (1) Acute exacerbation of CHF (congestive heart failure): Status: Acute (2) Hyperlipidemia: Status: Acute (3) HTN (hypertension): Status: Acute (4) Pulmonary hypertension: Status: Acute (5) (HFpEF) heart failure with preserved ejection fraction: Status: Acute (6) CAD (coronary artery disease): Status: Acute (7) Chronic atrial fibrillation: Status: Acute Plan 86-year-old male with a past medical history of hypertension, hyperlipidemia, CAD, CHF, AFib on Xarelto, history of bladder cancer, pulmonary hypertension on home oxygen, Raynaud's phenomena, COPD; presented to the hospital today with a chief complaint of shortness of breath. noted to be in acute CHF.? Admitted for further management. Acute on chronic CHF:HFpEF Complaining of persistent shortness of breath, no cough no fevers no other acute issues overnight Echo 01/2021-> shows? EF of 65-70%, inferior segment hypokinetic, moderately increased RV cavity size, biatrial enlargement, moderate to severe pulmonary hypertension. Continue iv Lasix 40 mg IV b.i.d. at home take Lasix 40 mg daily -300 since admission, significantly elevated BNP 3161 from baseline around 400, normal troponin Continue Daily weights and I's and O's, follow BMP and BNP Await Cardiology input, will discuss adjusting dose of diuretics/? Repeat echo Bilateral healing ulcer: Wound consult follow-up. History of chronic AFib:? Rate controlled, not on rate-controlling medication, Continue home rivaroxaban History of hypertension: Hold home amlodipine in order to provide room for blood pressure while diuresing. History of BPH:? Continue home Flomax, finasteride has external Dumont catheter History of COPD: Was recently evaluated by Dr. Vila and recommended to use oxygen 2-3 L with activity, will place on scheduled and as needed DuoNebs , continue home inhalers. Use CPAP at home History of coronary artery disease status post pacemaker continue statins, Norvasc on hold DVT prophylaxis:on Xarelto Code status: DNR /DNI. Patient will need continued inpatient hospitalization due to acute on chronic congestive heart failure requiring IV diuretics. Quality Stroke Does the patient have a stroke diagnosis?: No VTE Prior VTE?: No VTE Risk Level:: Medical - moderate - high VTE Device Contraindication: Treatment Not Indicated VTE Drug Contraindication: N/A - Med Ordered
--- NOTE | 2021-11-21 12:19 | P.CONCA_ITS ---
History of Present Illness History of Present Illness Date of Service: 11/21/21 Requesting physician: Alesia Bustillos Chief complaint: Acute on chronic CHF Narrative: 86-year-old gentleman with known history of diastolic heart failure and RV dysfunction was presenting with shortness of breath and edema. He has known COPD and is supposed to be on oxygen at home. He said he was not feeling well and his breathing was worsening. He also had lower extremity edema and decided come to the emergency department. He is being treated for COPD as well as congestive heart failure right now. He is on IV diuretics. He is saying he is feeling little better. Overall looks quite frail and chronically sick. Denying any chest discomfort. He is saying he off and on feels palpitations and these remind him of AFib. [facility] Past Medical History Medical History (Updated 11/20/21 @ 18:44 by Radha Powers MD) (HFpEF) heart failure with preserved ejection fraction Anxiety Bradycardia CAD (coronary artery disease) Cardiac pacemaker in situ Chronic atrial fibrillation COPD (chronic obstructive pulmonary disease) COPD (chronic obstructive pulmonary disease) HTN (hypertension) Hyperlipidemia Malignant neoplasm of lateral wall of urinary bladder Pulmonary hypertension Raynaud disease Respiratory failure Family History Family History Father Lung cancer Cancer Mother No problems noted. Surgical History Surgical History H/O transurethral resection of prostate History of appendectomy History of back surgery History of placement of leadless cardiac pacemaker History of prostate surgery Stented coronary artery Social History Social History Household Members: Spouse Are you a primary care assistant to a significant other at home: No Do you presently have visiting nurse or other home services: No Alcohol intake: never Patient Tobacco Use Status: Former Tobacco user Quit Date: age 65 Advance Directives: Yes Advance Directives on File: Yes Advance Directives Date on File: 09/17/21 service: Yes Current occupational status: retired [employer] Allergies Allergy/AdvReac Type Severity Reaction Status Date / Time No Known Allergies Allergy Verified 11/11/21 15:13 [No Known Allergies*] Active Medications: Current Medications Acetaminophen (Acetaminophen 325 Mg Tablet) 650 mg PO Q6H PRN PRN Reason: Pain, Mild (Pain Scale 1-3) Last Admin: 11/21/21 01:55 Dose: 650 mg Documented by: Albuterol Sulfate (Albuterol Sulfate 90 Mcg 8 Gm Inhaler) 2 puff INHALE Q6H PRN PRN Reason: Wheezing Last Admin: 11/21/21 11:17 Dose: 2 puff Documented by: Albuterol/Ipratropium (Albuterol/Iprat 2.5/0.5mg 3 Ml Ampul.Neb) 3 ml INHALE RQ6H WHILE AWAKE [facility] Atorvastatin Calcium (Atorvastatin Calcium 20 Mg Tablet) 20 mg PO DAILY [facility] Last Admin: 11/21/21 10:18 Dose: 20 mg Documented by: Ferrous Sulfate (Ferrous Sulfate 324 Mg Tablet.Dr) 324 mg PO DAILY [facility] Last Admin: 11/21/21 10:18 Dose: 324 mg Documented by: Finasteride (Finasteride 5 Mg Tablet) 5 mg PO DAILY [facility] Last Admin: 11/21/21 10:19 Dose: 5 mg Documented by: Fluticasone Propionate (Fluticasone Propionate Nasal 16 Gm [place]) 1 spray NOSTRIL-B DAILY [facility] Last Admin: 11/21/21 11:02 Dose: 1 spray Documented by: Furosemide (Furosemide 40 Mg/4 Ml Vial) 40 mg IVPUSH BIDWM [facility]; Protocol Last Admin: 11/21/21 10:19 Dose: 40 mg Documented by: Hydromorphone HCl (Hydromorphone Hcl 0.5 Mg/0.5 Ml Syringe) 0.5 mg IVPUSH Q6H PRN; Protocol PRN Reason: Breakthrough Pain Last Admin: 11/21/21 02:05 Dose: 0.5 mg Documented by: Lorazepam (Lorazepam 0.5 Mg Tablet) 0.5 mg PO DAILY PRN PRN Reason: anxiety Melatonin (Melatonin 3 Mg Tablet) 6 mg PO BEDTIME PRN PRN Reason: Insomnia Last Admin: 11/21/21 01:54 Dose: 6 mg Documented by: Non-Formulary Medication (Mometasone) 2 inhalation INHALE DAILY [facility] Pharmacy Consult (Consult Rx Perform Med Rec) 1 each MISCELLANE ONCE PRN PRN Reason: Consult order Rivaroxaban (Rivaroxaban 20 Mg Tablet) 20 mg PO DAILY [facility] Last Admin: 11/21/21 10:18 Dose: 20 mg Documented by: Senna (Sennosides 8.6 Mg Tablet) 17.2 mg PO BEDTIME PRN PRN Reason: Constipation Sodium Chloride (0.9 % Sodium Chloride Flush 3 Ml Syringe) 3 ml IVFLUSH QSHIFT [facility] Last Admin: 11/21/21 10:22 Dose: 3 ml Documented by: Tamsulosin HCl (Tamsulosin Hcl 0.4 Mg Capsule) 0.4 mg PO DAILY [facility] Last Admin: 11/21/21 10:18 Dose: 0.4 mg Documented by: Home Medications Medication Instructions Recorded Confirmed Last Taken Type albuterol sulfate 90 mcg/actuation 2 puff INHALATION Q6H PRN g 06/15/20 11/20/21 Unknown History aerosol inhaler atorvastatin 20 mg tablet 20 mg PO DAILY tab 06/15/20 11/20/21 Unknown History potassium chloride 10 mEq 10 meq PO DAILY cap 06/15/20 11/20/21 Unknown History capsule,extended release rivaroxaban 20 mg tablet (Xarelto) 20 mg PO DAILY tab 07/24/20 11/20/21 11/20/21 History furosemide 40 mg tablet 40 mg PO DAILY tab 10/10/21 11/20/21 Unknown History ferrous sulfate 325 mg (65 mg 325 mg PO DAILY 11/20/21 11/20/21 Unknown History iron) tablet fluticasone propionate 50 1 spray INTRANASAL DAILY 11/20/21 11/20/21 Unknown History mcg/actuation nasal spray,suspension lorazepam 0.5 mg tablet 0.5 mg PO DAILY PRN 11/20/21 11/20/21 Unknown History mometasone 2 inh INHALATION DAILY 11/20/21 11/20/21 Unknown History Physical Exam Vital Signs: Vital Signs: Last Vital Signs Temp 98.0 F 11/21/21 06:00 Pulse 700 H 11/21/21 12:01 Resp 20 11/21/21 12:01 BP 130/73 11/21/21 11:03 Pulse Ox 98 11/21/21 11:03 Oxygen Flow Rate 3 11/20/21 16:15 BMI result Body Mass Index 23.7 GENERAL APPEARANCE: Short of breath. On nebulizer. NECK: no carotid bruit, + jugular venous distention with prominent V-wave SKIN: no suspicious lesions, warm and dry. HEART: no murmurs, regular rate and rhythm. LUNGS: clear to auscultation bilaterally. ABDOMEN: soft, nontender. EXTREMITIES: 1+ edema. PERIPHERAL PULSES: equal. NEUROLOGIC: No gross deficits, AAO X 3 Objective Labs and Meds Result diagrams: 11/21/21 07:05 11/21/21 07:05 Lab results: Laboratory Results - last 24 hr 11/20/21 11/20/21 11/20/21 17:00 17:01 17:01 WBC 6.1 RBC 4.53 L Hgb 13.6 L Hct 43.6 MCV 96.2 MCH 30.0 MCHC 31.2 RDW 16.9 H Plt Count 234 MPV 9.8 Immature Gran % (Auto) 0.3 Neut % (Auto) 86.8 H Lymph % (Auto) 6.1 L [place] % (Auto) 6.0 Eos % (Auto) 0.3 Baso % (Auto) 0.5 Lymph # (Auto) 0.4 L [place] # (Auto) 0.4 Eos # (Auto) 0.0 Baso # (Auto) 0.0 Abs Immat Gran (auto) 0.02 Absolute Neuts (auto) 5.3 Absolute Nucleated RBC 0.000 Nucleated RBC % (auto) 0.0 PT INR Sodium 140 Potassium 3.7 Chloride 107 Carbon Dioxide 23 Anion Gap 14 BUN 34 H Creatinine 1.04 Estim Creat Clear Calc 56.5 Estimated GFR > 60 Random Glucose 103 Lactic Acid Lactic Acid F/U @ 2Hr Calcium 8.7 Magnesium 2.3 Total Bilirubin 2.0 H Direct Bilirubin 1.2 H AST 23 ALT 9 Alkaline Phosphatase 122 H D Troponin I High Sens B-Natriuretic Peptide Total Protein 7.1 Albumin 3.6 COVID-19 (DENICE) Negative COVID-19 Clin Com See Note 11/20/21 11/20/21 11/20/21 17:01 17:01 17:01 WBC RBC Hgb Hct MCV MCH MCHC RDW Plt Count MPV Immature Gran % (Auto) Neut % (Auto) Lymph % (Auto) [place] % (Auto) Eos % (Auto) Baso % (Auto) Lymph # (Auto) [place] # (Auto) Eos # (Auto) Baso # (Auto) Abs Immat Gran (auto) Absolute Neuts (auto) Absolute Nucleated RBC Nucleated RBC % (auto) PT 48.3 H INR 4.1 H Sodium Potassium Chloride Carbon Dioxide Anion Gap BUN Creatinine Estim Creat Clear Calc Estimated GFR Random Glucose Lactic Acid 2.2 H* Lactic Acid F/U @ 2Hr Calcium Magnesium Total Bilirubin Direct Bilirubin AST ALT Alkaline Phosphatase Troponin I High Sens 24.4 B-Natriuretic Peptide 3161 H Total Protein Albumin COVID-19 (DENICE) COVID-19 Clin Com 11/20/21 11/21/21 11/21/21 20:18 07:05 07:05 WBC 5.8 RBC 4.09 L Hgb 12.4 L Hct 39.1 L MCV 95.6 MCH 30.3 MCHC 31.7 RDW 16.9 H Plt Count 193 MPV 9.6 Immature Gran % (Auto) 0.7 H Neut % (Auto) 77.8 H Lymph % (Auto) 8.0 L [place] % (Auto) 11.6 H Eos % (Auto) 1.4 Baso % (Auto) 0.5 Lymph # (Auto) 0.5 L [place] # (Auto) 0.7 Eos # (Auto) 0.1 Baso # (Auto) 0.0 Abs Immat Gran (auto) 0.04 H Absolute Neuts (auto) 4.5 Absolute Nucleated RBC 0.000 Nucleated RBC % (auto) 0.0 PT INR Sodium 142 Potassium 3.9 Chloride 108 Carbon Dioxide 25 Anion Gap 13 BUN 33 H Creatinine 0.95 Estim Creat Clear Calc 61.9 Estimated GFR > 60 Random Glucose 91 Lactic Acid Lactic Acid F/U @ 2Hr 1.6 Calcium 8.4 Magnesium Total Bilirubin Direct Bilirubin AST ALT Alkaline Phosphatase Troponin I High Sens B-Natriuretic Peptide Total Protein Albumin COVID-19 (DENICE) COVID-19 Clin Com Imaging Radiologist's impression: Impressions Chest X-Ray 11/20/21 17:08 IMPRESSION: Very small bilateral pleural effusions and mild cardiac enlargement without overt congestion or focal infiltrate. Assessment and Plan (1) Acute exacerbation of CHF (congestive heart failure): Status: Acute Plan Labs, EKG and imaging reviewed. 86-year-old gentleman with shortness of breath and congestive heart failure. He has right-sided heart failure mostly. Agree with IV diuretics. Monitor electrolytes closely. I think his shortness of breath is not purely due to heart failure and is probably due to COPD. He has peripheral edema and fatigue can be due to congestive heart failure specially right ventricle dysfunction can give similar symptoms. In any case we should diurese him. He should continue nebulizers and treatment for his COPD so his breathing could improved somewhat. We will follow along with you. Thank you for allowing me to participate in the care of your patient. Please fe el free to contact me if you have any questions. Procedures Date of Service Date of Service: 11/21/21
--- NOTE | 2021-11-21 14:51 | PC.NURSE ---
PT ATE LUNCH. ALERT AND ORIENTED.
--- NOTE | 2021-11-21 21:08 | PC.NURSE ---
Transfer report given to KALINA Zaman at [facility]-pt assigned to bed 483(1).
[2021-11-22] VITALS (10 sets, daily range): BP systolic 133–143; BP diastolic 66–75; PULSE 62–95; RESP 16–20; TEMP 36.1–36.7; O2SAT 97–100
[2021-11-22] MEDS: LORazepam 0.5 MG TABLET PO (03:48)
--- NOTE | 2021-11-22 05:33 | PC.NURSE ---
Around 03:45 pt stated, I can't catch my breath. O2 Sat 98% on 5L. LS remain CTA. Pt repositioned up in bed. Ativan given at 03:48 to help patient relax with good effect. Upon recheck, pt was relaxed and falling asleep. Pt stated he was feeling better. Pt cat napped prior to receiving the Ativan. Will continue to monitor.
[2021-11-22 07:13] LABS: Anion Gap 15 (12-20); Blood Urea Nitrogen 29 mg/dL (9-16); Calcium 8.4 mg/dL (8.4-10.2); Carbon Dioxide 24 mmol/L (22-29); Chloride 106 mmol/L (96-108); Creatinine Clr Calc Pharmacy 61.3; Estimated Glomerular Filt Rate > 60; Glucose Random 126 mg/dL (60-115); Potassium 3.6 mmol/L (3.3-5.1); Sodium 141 mmol/L (135-145)
[2021-11-22 07:17] LABS: B Type Natriuretic Peptide 3408 pg/mL (<100)
[2021-11-22] MEDS: Finasteride 5 MG TABLET PO (09:38)
[2021-11-22] MEDS: Furosemide 40 MG/4 ML VIAL 60 MG IVPUSH ×2 (09:38→18:05)
[2021-11-22] MEDS: Atorvastatin Calcium 20 MG TABLET PO (09:39)
[2021-11-22] MEDS: Rivaroxaban 20 MG TABLET PO (09:39)
[2021-11-22] MEDS: Ferrous Sulfate 324 MG TABLET.DR PO (09:39)
[2021-11-22] MEDS: Tamsulosin HCL 0.4 MG CAPSULE PO (09:39)
[2021-11-22] MEDS: 0.9 % Sodium Chloride Flush 3 ML SYRINGE IVFLUSH ×2 (09:42→18:05)
[2021-11-22] MEDS: Fluticasone Propionate Nasal 16 GM SPRAY 1 SPRAY NOSTRIL-B (09:47)
[2021-11-22] MEDS: Albuterol/Iprat 2.5/0.5MG 3 ML AMPUL.NEB INHALE ×3 (09:50→19:25)
--- NOTE | 2021-11-22 10:17 | P.CDIC_ITS ---
CDI Concurrent Query Documentation Clarification: PHYSICIAN'S DOCUMENTATION REQUEST Date of Query: 11/22/21 1018 Patient Name: Duke Felton JR Admit Date: 11/20/21 Dear Doctor, A review of the medical record indicates additional documentation may be needed. Please review below and update the documentation accordingly. Clinical Indicators: Risk Factors/Clinical Indicators/Treatments PN: Patients baseline home O2 is at 2 liters. RR 25 placed on 3 liters nc increased to 5 liters nc. History of COPD, persistent shortness of breath. PMH: respiratory failure Cardiology note 11/20 - was supposed to be on oxygen at home, breathing is worsening. Recognized standard criteria for respiratory failure includes: (Source: [facility] Hospitalist Apr 2013) ABGs (1 or more) Symptoms: ? PO2 <60 or RA SpO2 <91% ? Tachypnea, SOB, dyspnea ? PcO2 >50 and pH <7.35 ? pO2 decrease or pcO2 increase ? Anxiety or restlessness by 10 mm/Hg from baseline if known P/F ratio < 300 Supplemental O2 requirement of 40% or more Intubation is not required Clarify which of the following accurately represents the patient's respiratory status: Chronic respiratory failure on home O2 * Acute respiratory failure * Acute on chronic respiratory failure * Acute respiratory distress * Hypoxia * Other (please specify) * Unable to determine Please include type if known: * Hypoxic * Hypercapnic * Hypoxic and hypercapnic * Unable to determine Use of terms such as suspected, likely, concern for, or probable (associated wi th a specific diagnosis that is being evaluated, monitored, or treated as if it exists) are acceptable and can be coded in the inpatient setting, when documented at the time of discharge. Thank you, Kenya Machado [facility], CDIS Extension: [phone] Please use your independent medical judgment in providing your response. THIS QUERY IS PART OF THE PERMANENT MEDICAL RECORD Provider Response: Other Other Diagnosis: Chronic respiratory failure on home oxygen
--- NOTE | 2021-11-22 10:21 | MHC.CM.PN ---
Male 86 DX Acute/Chronic CHF COPD exacerbation. No dc today. Patient requires further treatment for HF and COPD. DP resume [facility] and PT. Patient will transport home.
--- NOTE | 2021-11-22 11:33 | HO.PM.IMPN ---
Subjective Subjective Date of Service: 11/22/21 Interval History: Complaining of shortness of breath, complaining of dry nose, denies chest tightness no palpitation no other acute issues overnight. Review of Systems General no headache, no dizziness no fever chills.? CVS no chest pain, no palpitation.? Respiratory no cough, no sputum production? Gastrointestinal no nausea, no vomiting, no abdominal pain Review of Systems: Yes all other systems are reviewed and are negative Physical Exam Vital Signs: Vital Signs: Last Vital Signs Temp 97 F 11/22/21 11:13 Pulse 95 11/22/21 11:13 Resp 20 11/22/21 11:13 BP 136/75 11/22/21 11:13 Pulse Ox 100 11/22/21 11:13 Oxygen Flow Rate 3 11/20/21 16:15 BMI result Body Mass Index 22.5 Const: Other: General awake alert x3, mild respiratory distress ? Neck + JVD. CVS? regular rate rhythm, Respiratory lungs bibasilar crackles, diminished breath sound bilaterally Gastrointestinal abdomen soft, nontender, bowel sounds audible Extremities no edema. Neuro nonfocal Psych appropriate affect Objective Data Active Medications Acetaminophen (Acetaminophen 325 Mg Tablet) 650 mg PO Q6H PRN PRN Reason: Pain, Mild (Pain Scale 1-3) Last Admin: 11/21/21 01:55 Dose: 650 mg Documented by: FLORIN Albuterol Sulfate (Albuterol Sulfate 90 Mcg 8 Gm Inhaler) 2 puff INHALE Q6H PRN PRN Reason: Wheezing Last Admin: 11/21/21 19:48 Dose: 2 puff Documented by: MENDY Albuterol/Ipratropium (Albuterol/Iprat 2.5/0.5mg 3 Ml Ampul.Neb) 3 ml INHALE RQ6H WHILE AWAKE [facility] Last Admin: 11/22/21 09:50 Dose: 3 ml Documented by: HIRA Atorvastatin Calcium (Atorvastatin Calcium 20 Mg Tablet) 20 mg PO DAILY [facility] Last Admin: 11/22/21 09:39 Dose: 20 mg Documented by: CORNELIO Ferrous Sulfate (Ferrous Sulfate 324 Mg Tablet.) 324 mg PO DAILY [facility] Last Admin: 11/22/21 09:39 Dose: 324 mg Documented by: CORNELIO Finasteride (Finasteride 5 Mg Tablet) 5 mg PO DAILY [facility] Last Admin: 11/22/21 09:38 Dose: 5 mg Documented by: CORNELIO Fluticasone Propionate (Fluticasone Propionate Nasal 16 Gm [place]) 1 spray NOSTRIL-B DAILY [facility] Last Admin: 11/22/21 09:47 Dose: 1 spray Documented by: CORNELIO Furosemide (Furosemide 40 Mg/4 Ml Vial) 60 mg IVPUSH BIDWM [facility]; Protocol Last Admin: 11/22/21 09:38 Dose: 60 mg Documented by: CORNELIO Hydromorphone HCl (Hydromorphone Hcl 0.5 Mg/0.5 Ml Syringe) 0.5 mg IVPUSH Q6H PRN; Protocol PRN Reason: Breakthrough Pain Last Admin: 11/21/21 02:05 Dose: 0.5 mg Documented by: FLORIN Lorazepam (Lorazepam 0.5 Mg Tablet) 0.5 mg PO DAILY PRN PRN Reason: anxiety Last Admin: 11/22/21 03:48 Dose: 0.5 mg Documented by: VIKTOR Melatonin (Melatonin 3 Mg Tablet) 6 mg PO BEDTIME PRN PRN Reason: Insomnia Last Admin: 11/21/21 01:54 Dose: 6 mg Documented by: FLORIN Non-Formulary Medication (Mometasone) 2 inhalation INHALE DAILY [facility] Non-Formulary Medication (Tiotropium-Olodaterol [Stiolto Respimat]) 2 puff INHALE Q24H [facility] Pharmacy Consult (Consult Rx Perform Med Rec) 1 each MISCELLANE ONCE PRN PRN Reason: Consult order Rivaroxaban (Rivaroxaban 20 Mg Tablet) 20 mg PO DAILY [facility] Last Admin: 11/22/21 09:39 Dose: 20 mg Documented by: CORNELIO Senna (Sennosides 8.6 Mg Tablet) 17.2 mg PO BEDTIME PRN PRN Reason: Constipation Sodium Chloride (0.9 % Sodium Chloride Flush 3 Ml Syringe) 3 ml IVFLUSH QSHIFT [facility] Last Admin: 11/22/21 09:42 Dose: 3 ml Documented by: CORNELIO Tamsulosin HCl (Tamsulosin Hcl 0.4 Mg Capsule) 0.4 mg PO DAILY [facility] Last Admin: 11/22/21 09:39 Dose: 0.4 mg Documented by: CORNELIO Labs CBC & Chem 7: 11/21/21 07:05 11/22/21 05:53 Labs: Laboratory Results - last 24 hr 11/22/21 11/22/21 05:53 05:53 Anion Gap 15 Estim Creat Clear Calc 61.3 Estimated GFR > 60 Random Glucose 126 H D Calcium 8.4 B-Natriuretic Peptide 3408 H Microbiology Microbiology Results: Microbiology 11/20/21 17:02 Blood Culture - Preliminary Blood - Venous No growth after 24 hours. 11/20/21 17:00 Blood Culture - Preliminary Blood - Venous No growth after 24 hours. Assessment and Plan (1) Acute exacerbation of CHF (congestive heart failure): Status: Acute (2) Hyperlipidemia: Status: Acute (3) HTN (hypertension): Status: Acute (4) Pulmonary hypertension: Status: Acute (5) (HFpEF) heart failure with preserved ejection fraction: Status: Acute (6) CAD (coronary artery disease): Status: Acute (7) Chronic atrial fibrillation: Status: Acute Plan 86-year-old male with a past medical history of hypertension, hyperlipidemia, CAD, CHF, AFib on Xarelto, history of bladder cancer, pulmonary hypertension on home oxygen, Raynaud's phenomena, COPD; presented to the hospital today with a chief complaint of shortness of breath. noted to be in acute CHF.? Admitted for further management. Acute on chronic CHF:HFpEF Complaining of persistent shortness of breath, no cough, no fevers ,no other acute issues overnight Echo 01/2021-> shows? EF of 65-70%, inferior segment hypokinetic, moderately increased RV cavity size, biatrial enlargement, moderate to severe pulmonary hypertension. Continue iv Lasix dose increased to 60 mg b.i.d. will discuss with Cardiology to changed to Lasix drip, at home take Lasix 40 mg daily -1.5 L since admission, BNP 3161 on admission bumped to 3408 from baseline around 400, normal troponin Continue Daily weights and I's and O's, follow BMP and BNP ? Repeat echo Bilateral healing ulcer: Continue dressing change Chronic respiratory failure on 3 L of home oxygen, no acute respiratory distress noted. Use humidified oxygen due to dryness, add as needed nasal saline History of chronic AFib:? Rate controlled, not on rate-controlling medication, Continue home rivaroxaban History of hypertension: Hold home amlodipine in order to provide room for blood pressure while diuresing. History of BPH:? Continue home Flomax, finasteride has external Dumont catheter History of COPD: On oxygen 2-3 L , continue on scheduled and as needed DuoNebs , continue home inhalers, CPAP History of coronary artery disease status post pacemaker continue statins, Norvasc on hold as above DVT prophylaxis:on Xarelto Code status: DNR /DNI. Patient will need continued inpatient hospitalization due to acute on chronic congestive heart failure requiring IV diuretics. Quality Stroke Does the patient have a stroke diagnosis?: No VTE Prior VTE?: No VTE Risk Level:: Medical - moderate - high VTE Device Contraindication: Treatment Not Indicated VTE Drug Contraindication: N/A - Med Ordered
[2021-11-22] MEDS: Potassium Chloride ER 20 MEQ TAB.ER.PRT PO (13:36)
--- NOTE | 2021-11-22 13:42 | P.PNCA_ITS ---
Subjective Subjective Date of Service: 11/22/21 Principal diagnosis: right HF, COPD Interval history: Seen at 1230. Today he reports that he is still feeling sob. He did not sleep well during the night due to not breathing well. He is wearing O2 with nasal cannula. No cough. No chest pains, palpitation, dizziness. Feels that his abdomen is distended. Has tight edema to upper thighs. present. Review of Systems Review of Systems as above Yes all other systems are reviewed and are negative Physical Exam Vital Signs: Last Vital Signs Temp 97 F 11/22/21 11:13 Pulse 95 11/22/21 11:13 Resp 20 11/22/21 11:13 BP 136/75 11/22/21 11:13 Pulse Ox 100 11/22/21 11:13 Oxygen Flow Rate 3 11/20/21 16:15 BMI result Body Mass Index 22.5 Const General: cooperative, no acute distress, alert and awake Orientation/consciousness: patient oriented x3 HEENT Head: Yes normal to inspection Neck Neck: Yes JVD Resp Other: wearing O2 with cannula, mild sob noted with taking sentences and moving in bed, no cough Auscultation: clear to auscultation bilaterally, no crackles, no rales, no rhonchi and no wheezes Cardio Jugular venous distension: JVD Rate: regular rate Rhythm: regular rhythm Heart sounds: S2 normal heart sound present and Murmur heart sound present (systolic) GI Inspection: Yes normal to inspection Skin General skin exam: no rashes or lesions noted Neuro General: patient oriented x3 Extrem Other: tight edema up legs and into thighs Objective Labs and Meds Result diagrams: 11/21/21 07:05 11/22/21 05:53 Lab results: Laboratory Results - last 24 hr 11/22/21 11/22/21 05:53 05:53 Sodium 141 Potassium 3.6 Chloride 106 Carbon Dioxide 24 Anion Gap 15 BUN 29 H Creatinine 0.93 Estim Creat Clear Calc 61.3 Estimated GFR > 60 Random Glucose 126 H D Calcium 8.4 B-Natriuretic Peptide 3408 H Progress Note: A&P Assessment and plan (1) Acute exacerbation of CHF (congestive heart failure): Status: Acute Assessment and Plan: HFpEF, acute on chronic right HF. Being diuresed with IV Lasix with negative fluid balance 1400 cc since admission. BNP yesterday 3161, today 3408. He continues to report shortness of breath and is being treated for COPD exacerbation as well. He has report of mild abdominal distension and presence of edema up into his thighs. Last echo 02/12/2021 showed EF 65-70%, basal inferior hypokinetic, moderate increase in the RV size, severe biatrial enlargement , moderate TR, moderate to severe pulmonary hypertension. He does have audible murmur on examination. Will update echocardiogram. Continue to diurese with IV Lasix. Continue strict I&O monitoring, daily weights. Close monitoring of electrolytes and kidney function with electrolyte replacement as warranted. Ongoing management of COPD as directed by hospitalist. We will follow. (2) COPD (chronic obstructive pulmonary disease): Status: Acute (3) Chronic atrial fibrillation: Status: Acute Assessment and Plan: History of chronic atrial fibrillation. His monitoring analyst is showing V paced rhythm with underlying AFib, rates 60s to 80s. He is not on rate slowing agents. He is on Xarelto for a coagulation. No reports of bleeding. (4) CAD (coronary artery disease): Status: Acute Assessment and Plan: Known history of CAD, not amenable to PCI per office records. He denies chest discomfort at rest or with activity today or in recent past. Will continue on medical management for stable CAD including statin. He is not on aspirin as he is on Xarelto. (5) Cardiac pacemaker in situ: Status: Acute Assessment and Plan: Patient has a leadless micra AV pacemaker in place. It is followed by our card iology office. Telemetry monitoring showing V paced rhythm. No indication for interrogation at present time. Time Spent With Patient Time: Total time spent is greater than 50% in coordination of care (as documented) at patient's floor/unit and/or counseling patient: 22 Progress Note: Quality Stroke Does the patient have a stroke diagnosis?: No Procedures Date of Service Date of Service: 11/22/21
--- NOTE | 2021-11-22 15:00 | CA_ITS ---
Transthoracic Echocardiogram Patient (Last, First, Middle): Duke Felton W Gender: Male Date of : 1935 Age: 86 Procedure Date: 11/22/2021 Procedure Type: Transthoracic Echocardiogram Location: [facility] [place] Height: 185.42 cm Weight: 77.11 kg BSA: 2.01 m2 Heart Rate: bpm BP: 136 / 75 mmHg Edger Feeder: SB Referring MD: Ana Stevens MEAT INSPECTOREstrada Symptoms: murmur, known mild , admit with HF Study Quality: Good ECG Rhythm: AV paced rhythm Conclusions: - Normal left ventricular cavity size. There is normal left ventricular wall thickness. The left ventricular systolic function is severely decreased. The visually estimated ejection fraction is between 15-20%. - There is a flattened septum in systole and diastole consistent with right ventricular pressure and volume overload. - Moderately increased right ventricular cavity size. There is severely decreased right ventricular systolic function. - There is mild aortic valve regurgitation. 1 cm x 0.4 cm mobile structure attached with the aortic valve with differentials of vegetation vs thrombus. Findings Left Ventricle Normal left ventricular cavity size. There is normal left ventricular wall thickness. The left ventricular systolic function is severely decreased. The visually estimated ejection fraction is between 15-20%. There is severe global hypokinesis. There is a flattened septum in systole and diastole consistent with right ventricular pressure and volume overload. Diastolic function is indeterminate on the basis of available data. Right Ventricle Moderately increased right ventricular cavity size. There is severely decreased right ventricular systolic function. Atria The left atrium is moderately dilated. Aortic Valve There is moderate calcification of the aortic valve. There is no aortic valve stenosis. There is mild aortic valve regurgitation. 1 cm x 0.4 cm mobile structure attached with the aortic valve with differentials of vegetation vs thrombus. Mitral Valve There is moderate mitral annular calcification. There is mild to moderate mitral valve regurgitation. There is no mitral valve stenosis. Pulmonic Valve Normal pulmonic valve structure and function. There is trace pulmonic valve regurgitation. Tricuspid Valve There is moderate tricuspid valve regurgitation. The right ventricular systolic pressure is 63 mmHg. Significantly elevated right atrial pressure. Severe pulmonary hypertension is present. Great Vessels There is mild dilatation of the ascending aorta measuring 3.50 cm. The visualized portions of the pulmonary artery and branches are normal. Venous The inferior vena cava is dilated and collapses less than 50% with inspiration. Pericardium/Pleural There is no evidence of pericardial effusion. There is a moderate pleural effusion. Prior Study Comparison Changes noted compared to prior study dated: 02/12/2021. LVEF 15%, severe pulm hypertension Measurements 2D Linear Measurements IVSd: 0.73 0.6-0.9/0.6-1.0 cm LVIDd: 6.07 3.9-5.3/4.2-5.9 cm LVIDd Index: 3.02 2.4-3.2/2.2-3.1 cm/m2 LVIDs: 4.88 2.0-3.6 cm LVPWd: 0.64 0.7-1.1 cm LA Diam: 4.70 2.7-3.8/3.0-4.0 cm LAIDs Index: 2.34 1.5-2.3 cm/m2 LV Mass: 195.88 67-162/88-224 g LV Mass Index: 97.45 43-95/49-115 g/m2 LVOT Diam: 2.20 3.0+(-)1.3 cm 2D Systolic Function EF 4C: 23.00 >55% EF 2C: 29.30 >55% EF BiP: 24.40 >55% Mitral Valve MV Pk E: 0.89 MV PK A: 0.40 MV Decel Time: 154.00 E/A: 2.20 E'Lateral: 11.70 E/E' Lat: 7.60 PHT: 45.00 MVA PHT: 4.89 Decel Grafton: 5.77 MR Vol - PW Dopp: 13.28 MR VTI: 1.66 MR ERO: 8.00 MR Alias Alvaro: 0.39 MR RAD: 0.40 Aortic Valve AoV Pk Alvaro: 1.91 AoV Mn Alvaro: 1.15 AoV VTI: 0.33 AoV Pk Grad: 16.00 Aov Mn Grad: 6.50 CARLOS Cont.VTI: 1.39 AI Pk Alvaro: 3.86 AI Grafton: 2.04 LVOT LVOT Pk Alvaro: 0.74 LVOT Mn Alvaro: 0.49 LVOT VTI: 0.12 LVOT Pk Grad: 2.00 LVOT Mn Grad: 1.00 LVOT Diam: 2.20 LVOT Area: 3.80 Diastolic Function MV Pk E: 0.89 MV Pk A: 0.40 E/A: 2.20 E' Laterial: 11.70 E/E' Lat: 7.60 Right Ventricle TAPSE (mm): 11.60 TVS' Alvaro: 6.80 Tricuspid Valve TR Pk Alvaro: 3.27 TR Pk Grad: 48.00 RA Press: 15.00 RVSP: 63.00 Great Vessels Aorta Sinus of Valsalva: 3.07 2.0-3.[address] Ridge: 2.60 1.7-3.4 cm Ao Asc: 3.50 2.1-3.4 cm Pulmonary Valve PV Pk Alvaro: 0.52 Peak PV Grad: 1.00 Updated in Other Vendor System with Status of Final Juan Miguel Goldman MD electronically signed on 11/23/2021 11:10:25 PM with status of Final
[2021-11-22] MEDS: Melatonin 3 MG TABLET 6 MG PO (23:07)
[2021-11-22] MEDS: Acetaminophen 325 MG TABLET 650 MG PO (23:07)
[2021-11-22] MEDS: HYDROmorphone HCl 0.5 MG/0.5 ML SYRINGE IVPUSH (23:08)
[2021-11-23] VITALS (9 sets, daily range): BP systolic 126–150; BP diastolic 60–78; PULSE 61–106; RESP 16–24; TEMP 36.1–36.8; O2SAT 94–99; BMI 22.6
[2021-11-23 07:12] LABS: Anion Gap 14 (12-20); Blood Urea Nitrogen 23 mg/dL (9-16); Calcium 8.3 mg/dL (8.4-10.2); Carbon Dioxide 23 mmol/L (22-29); Chloride 107 mmol/L (96-108); Creatinine Clr Calc Pharmacy 79.2; Estimated Glomerular Filt Rate > 60; Glucose Random 84 mg/dL (60-115); Potassium 3.6 mmol/L (3.3-5.1); Sodium 140 mmol/L (135-145)
[2021-11-23] MEDS: Albuterol/Iprat 2.5/0.5MG 3 ML AMPUL.NEB INHALE ×3 (07:55→19:02)
[2021-11-23] MEDS: Furosemide 40 MG/4 ML VIAL 60 MG IVPUSH (08:59)
[2021-11-23] MEDS: 0.9 % Sodium Chloride Flush 3 ML SYRINGE IVFLUSH ×4 (08:59→22:28)
[2021-11-23] MEDS: Tamsulosin HCL 0.4 MG CAPSULE PO (08:59)
[2021-11-23] MEDS: Potassium Chloride ER 20 MEQ TAB.ER.PRT PO (08:59)
[2021-11-23] MEDS: Atorvastatin Calcium 20 MG TABLET PO (08:59)
[2021-11-23] MEDS: Rivaroxaban 20 MG TABLET PO (08:59)
[2021-11-23] MEDS: Finasteride 5 MG TABLET PO (08:59)
[2021-11-23] MEDS: Ferrous Sulfate 324 MG TABLET.DR PO (08:59)
[2021-11-23] MEDS: Sodium Chloride 0.65 % Nasal 44 ML SPRBTL 1 SPRAY NOSTRIL-B ×2 (10:40→22:28)
[2021-11-23] MEDS: Fluticasone Propionate Nasal 16 GM SPRAY 1 SPRAY NOSTRIL-B (10:43)
--- NOTE | 2021-11-23 12:18 | P.PNCA_ITS ---
Subjective Subjective Date of Service: 11/23/21 Principal diagnosis: right HF, COPD Interval history: Significantly SOB. Physical Exam Vital Signs: Last Vital Signs Temp 97.3 F 11/23/21 11:45 Pulse 89 11/23/21 11:45 Resp 24 H 11/23/21 11:45 BP 134/78 11/23/21 11:45 Pulse Ox 94 11/23/21 11:45 Oxygen Flow Rate 3 11/20/21 16:15 BMI result Body Mass Index 22.6 GENERAL APPEARANCE:? Short of breath. NECK: no carotid bruit, + jugular venous distention with prominent V-wave SKIN: no suspicious lesions, warm and dry. HEART: no murmurs, regular rate and rhythm. LUNGS: clear to auscultation bilaterally. ABDOMEN: soft, nontender. EXTREMITIES:? 1+ edema. PERIPHERAL PULSES: equal. NEUROLOGIC: No gross deficits, AAO X 3 Objective Labs and Meds Result diagrams: 11/21/21 07:05 11/23/21 06:20 Lab results: Laboratory Results - last 24 hr 11/23/21 06:20 Sodium 140 Potassium 3.6 Chloride 107 Carbon Dioxide 23 Anion Gap 14 BUN 23 H Creatinine 0.72 Estim Creat Clear Calc 79.2 Estimated GFR > 60 Random Glucose 84 Calcium 8.3 L Progress Note: A&P Assessment and plan (1) Acute exacerbation of CHF (congestive heart failure): Status: Acute Plan 86-year-old man with previous history of RV dysfunction presenting with shortness of breath and volume overload. Echocardiography is showing severe LV dysfunction in addition to artery issues this time too. Is reproducible overloa ded and short of breath. Would favor putting him on BiPAP for few hours. Increase the furosemide to 80 mg twice a day along with metolazone 2.5 mg x 1. If he does not respond well to bolus dose diuretics then would consider putting him on Lasix drip. Thank you for allowing me to participate in the care of your patient. Please feel free to contact me if you have any questions. Time Spent With Patient Time: Total time spent is greater than 50% in coordination of care (as documented) at patient's floor/unit and/or counseling patient: Progress Note: Quality Stroke Does the patient have a stroke diagnosis?: No Procedures Date of Service Date of Service: 11/23/21
--- NOTE | 2021-11-23 12:51 | P.PNIM_ITS ---
Subjective Subjective Date of Service: 11/23/21 Interval History: Complaining of dry nose/nose bleed, complaining of persistent shortness of breath slightly better since admission, denies chest pain no lightheadedness no dizziness no nausea vomiting no other acute issues overnight is 1.2 L negative in last 24 hours Review of Systems General no headache, no dizziness no fever chills.? CVS no chest pain, no palpitation.? Respiratory no cough, no sputum production? Gastrointestinal no nausea, no vomiting, no abdominal pain Review of Systems: Yes all other systems are reviewed and are negative Physical Exam Vital Signs: Vital Signs: Last Vital Signs Temp 97.3 F 11/23/21 11:45 Pulse 89 11/23/21 11:45 Resp 24 H 11/23/21 11:45 BP 134/78 11/23/21 11:45 Pulse Ox 94 11/23/21 11:45 Oxygen Flow Rate 3 11/20/21 16:15 BMI result Body Mass Index 22.6 Const: Other: General awake aler t x3, mild respira tory distress ? Ne ck + JVD. CVS? reg ular rate rhythm, Respiratory lungs no crackles, dimin ished breath sound bilaterally Gastr ointestinal abdome n soft, nontender, bowel sounds gretchen ble Extremities bi lateral edema/exte nding to thigh. Ne uro nonfocal Psych appropriate affec t Objective Data Active Medications Acetaminophen (Acetaminophen 325 Mg Tablet) 650 mg PO Q6H PRN PRN Reason: Pain, Mild (Pain Scale 1-3) Last Admin: 11/22/21 23:07 Dose: 650 mg Documented by: YOGESH Albuterol Sulfate (Albuterol Sulfate 90 Mcg 8 Gm Inhaler) 2 puff INHALE Q6H PRN PRN Reason: Wheezing Last Admin: 11/21/21 19:48 Dose: 2 puff Documented by: MENDY Albuterol/Ipratropium (Albuterol/Iprat 2.5/0.5mg 3 Ml Ampul.Neb) 3 ml INHALE RQ6H WHILE AWAKE [facility] Last Admin: 11/23/21 07:55 Dose: 3 ml Documented by: YONATAN Atorvastatin Calcium (Atorvastatin Calcium 20 Mg Tablet) 20 mg PO DAILY [facility] Last Admin: 11/23/21 08:59 Dose: 20 mg Documented by: MANUEL Ferrous Sulfate (Ferrous Sulfate 324 Mg Tablet.) 324 mg PO DAILY [facility] Last Admin: 11/23/21 08:59 Dose: 324 mg Documented by: MANUEL Finasteride (Finasteride 5 Mg Tablet) 5 mg PO DAILY [facility] Last Admin: 11/23/21 08:59 Dose: 5 mg Documented by: MANUEL Fluticasone Propionate (Fluticasone Propionate Nasal 16 Gm [place]) 1 spray NOSTRIL-B DAILY [facility] Last Admin: 11/23/21 10:43 Dose: 1 spray Documented by: MANUEL Furosemide (Furosemide 40 Mg/4 Ml Vial) 80 mg IVPUSH BIDWM [facility]; Protocol Hydromorphone HCl (Hydromorphone Hcl 0.5 Mg/0.5 Ml Syringe) 0.5 mg IVPUSH Q6H PRN; Protocol PRN Reason: Breakthrough Pain Last Admin: 11/22/21 23:08 Dose: 0.5 mg Documented by: YOGESH Lorazepam (Lorazepam 0.5 Mg Tablet) 0.5 mg PO DAILY PRN PRN Reason: anxiety Last Admin: 11/22/21 03:48 Dose: 0.5 mg Documented by: VIKTOR Melatonin (Melatonin 3 Mg Tablet) 6 mg PO BEDTIME PRN PRN Reason: Insomnia Last Admin: 11/22/21 23:07 Dose: 6 mg Documented by: YOGESH Non-Formulary Medication (Mometasone) 2 inhalation INHALE DAILY [facility] Non-Formulary Medication (Tiotropium-Olodaterol [Stiolto Respimat]) 2 puff INHALE Q24H [facility] Pharmacy Consult (Consult Rx Perform Med Rec) 1 each MISCELLANE ONCE PRN PRN Reason: Consult order Potassium Chloride (Potassium Chloride Er 20 Meq Tab.Er.Prt) 20 meq PO DAILY [facility] Last Admin: 11/23/21 08:59 Dose: 20 meq Documented by: MANUEL Rivaroxaban (Rivaroxaban 20 Mg Tablet) 20 mg PO DAILY [facility] Last Admin: 11/23/21 08:59 Dose: 20 mg Documented by: MANUEL Senna (Sennosides 8.6 Mg Tablet) 17.2 mg PO BEDTIME PRN PRN Reason: Constipation Sodium Chloride (0.9 % Sodium Chloride Flush 3 Ml Syringe) 3 ml IVFLUSH QSHIFT [facility] Last Admin: 11/23/21 08:59 Dose: 3 ml Documented by: MANUEL Sodium Chloride (Sodium Chloride 0.65 % Nasal 44 Ml Sprbtl) 1 spray NOSTRIL-B Q1H PRN PRN Reason: Dryness Last Admin: 11/23/21 10:40 Dose: 1 spray Documented by: MANUEL Tamsulosin HCl (Tamsulosin Hcl 0.4 Mg Capsule) 0.4 mg PO DAILY [facility] Last Admin: 11/23/21 08:59 Dose: 0.4 mg Documented by: MANUEL Labs CBC & Chem 7: 11/21/21 07:05 11/23/21 06:20 Labs: Laboratory Results - last 24 hr 11/23/21 06:20 Anion Gap 14 Estim Creat Clear Calc 79.2 Estimated GFR > 60 Random Glucose 84 Calcium 8.3 L Microbiology Microbiology Results: Microbiology 11/20/21 17:02 Blood Culture - Preliminary Blood - Venous No growth after 48 hours. 11/20/21 17:00 Blood Culture - Preliminary Blood - Venous No growth after 48 hours. Assessment and Plan (1) Acute exacerbation of CHF (congestive heart failure): Status: Acute (2) Hyperlipidemia: Status: Acute (3) HTN (hypertension): Status: Acute (4) Pulmonary hypertension: Status: Acute (5) (HFpEF) heart failure with preserved ejection fraction: Status: Acute (6) CAD (coronary artery disease): Status: Acute (7) Chronic atrial fibrillation: Status: Acute Plan 86-year-old male with a past medical history of hypertension, hyperlipidemia, CAD, CHF, AFib on Xarelto, history of bladder cancer, pulmonary hypertension on home oxygen, Raynaud's phenomena, COPD; presented to the hospital today with a chief complaint of shortness of breath. noted to be in acute CHF.? Admitted for further management. Acute on chronic CHF:HFpEF persistent shortness of breath, dry nose with nose bleed Echo 01/2021-> shows? EF of 65-70%, inferior segment hypokinetic, moderately increased RV cavity size, biatrial enlargement, moderate to severe pulmonary hypertension. Repeat echo showed worsening EF, final report pending Case discussed with Cardiology they recommend to increase dose of Lasix to 80 mg b.i.d. and 1 dose of metolazone given Will use BiPAP during daytime and continue at night -2690 L since admission, BNP 3161 on admission bumped to 3408, baseline BNP around 400, normal troponin Continue Daily weights and I's and O's, follow BMP and BNP Bilateral leg healing ulcer: Continue dressing change Chronic respiratory failure on 3 L of home oxygen, and BiPAP, mild respiratory distress this morning due to fluid overload continue humidified oxygen and saline spray due to dryness History of chronic AFib:? Rate controlled, not on rate-controlling medication, Continue home rivaroxaban History of hypertension: Hold home amlodipine in order to provide room for blood pressure while diuresing. History of BPH:? Continue home Flomax, finasteride has external Dumont catheter History of COPD: On oxygen 3 L , continue on scheduled and as needed DuoNebs , continue home inhalers, BiPAP History of coronary artery disease status post pacemaker continue statins, Norvasc on hold as above DVT prophylaxis:on Xarelto Code status: DNR /DNI. Patient will need continued inpatient hospitalization due to acute on chronic congestive heart failure requiring IV diuretics. Quality Stroke Does the patient have a stroke diagnosis?: No VTE Prior VTE?: No VTE Risk Level:: Medical - moderate - high VTE Device Contraindication: Treatment Not Indicated VTE Drug Contraindication: N/A - Med Ordered
[2021-11-23] MEDS: metOLazone 2.5 MG TABLET PO (13:10)
[2021-11-23] MEDS: Furosemide 100 MG/10 ML VIAL 80 MG IVPUSH (13:10)
[2021-11-23] MEDS: Furosemide 40 MG/4 ML VIAL 80 MG IVPUSH (17:21)
[2021-11-23] MEDS: Acetaminophen 325 MG TABLET 650 MG PO (17:26)
[2021-11-23] MEDS: Fluticasone Propionate 100 MCG BLST.W.DEV 1 PUFF INHALE (19:02)
[2021-11-23] MEDS: Sacubitril/Valsartan 24/26 1 TAB TABLET PO (22:27)
[2021-11-23] MEDS: Sennosides 8.6 MG TABLET 17.2 MG PO (22:27)
[2021-11-23] MEDS: Melatonin 3 MG TABLET 6 MG PO (22:27)
[2021-11-24] VITALS (9 sets, daily range): BP systolic 96–135; BP diastolic 58–66; PULSE 60–127; RESP 16–24; TEMP 36–36.7; O2SAT 91–98; BMI 22.4
[2021-11-24] MEDS: Acetaminophen 325 MG TABLET 650 MG PO (00:45)
[2021-11-24 07:34] LABS: Anion Gap 12 (12-20); Blood Urea Nitrogen 21 mg/dL (9-16); Calcium 8.4 mg/dL (8.4-10.2); Carbon Dioxide 27 mmol/L (22-29); Chloride 103 mmol/L (96-108); Creatinine Clr Calc Pharmacy 80.7; Estimated Glomerular Filt Rate > 60; Glucose Random 90 mg/dL (60-115); Potassium 3.1 mmol/L (3.3-5.1); Sodium 139 mmol/L (135-145)
[2021-11-24] MEDS: Albuterol/Iprat 2.5/0.5MG 3 ML AMPUL.NEB INHALE ×3 (07:39→20:07)
[2021-11-24] MEDS: Fluticasone Propionate 100 MCG BLST.W.DEV 1 PUFF INHALE ×2 (07:41→20:07)
[2021-11-24] MEDS: Potassium Chloride ER 20 MEQ TAB.ER.PRT 40 MEQ PO ×2 (09:34→14:54)
[2021-11-24] MEDS: Furosemide 40 MG/4 ML VIAL 80 MG IVPUSH ×2 (09:35→18:03)
[2021-11-24] MEDS: Atorvastatin Calcium 20 MG TABLET PO (09:35)
[2021-11-24] MEDS: Rivaroxaban 20 MG TABLET PO (09:35)
[2021-11-24] MEDS: Sacubitril/Valsartan 24/26 1 TAB TABLET PO ×2 (09:35→21:21)
[2021-11-24] MEDS: Finasteride 5 MG TABLET PO (09:35)
[2021-11-24] MEDS: Ferrous Sulfate 324 MG TABLET.DR PO (09:35)
[2021-11-24] MEDS: Sodium Chloride 0.65 % Nasal 44 ML SPRBTL 1 SPRAY NOSTRIL-B (09:38)
[2021-11-24] MEDS: Fluticasone Propionate Nasal 16 GM SPRAY 1 SPRAY NOSTRIL-B (09:39)
--- NOTE | 2021-11-24 10:01 | PM.PNCARD ---
Subjective Subjective Date of Service: 11/24/21 Principal diagnosis: right HF, COPD Interval history: Saying his breathing is better today. Physical Exam Vital Signs: Last Vital Signs Temp 98.0 F 11/24/21 07:40 Pulse 91 11/24/21 07:43 Resp 20 11/24/21 07:43 BP 126/66 11/24/21 07:40 Pulse Ox 94 11/24/21 07:40 Oxygen Flow Rate 3 11/20/21 16:15 BMI result Body Mass Index 22.4 GENERAL APPEARANCE:? Short of breath. NECK: no carotid bruit, + jugular venous distention with prominent V-wave SKIN: no suspicious lesions, warm and dry. HEART: Systolic murmur, regular rate and rhythm. LUNGS: clear to auscultation bilaterally. ABDOMEN: soft, nontender. EXTREMITIES:? 1+ edema. PERIPHERAL PULSES: equal. NEUROLOGIC: No gross deficits, AAO X 3 Objective Labs and Meds Result diagrams: 11/21/21 07:05 11/24/21 06:47 Lab results: Laboratory Results - last 24 hr 11/24/21 06:47 Sodium 139 Potassium 3.1 L Chloride 103 Carbon Dioxide 27 Anion Gap 12 BUN 21 H Creatinine 0.71 Estim Creat Clear Calc 80.7 Estimated GFR > 60 Random Glucose 90 Calcium 8.4 Progress Note: A&P Assessment and plan (1) Acute exacerbation of CHF (congestive heart failure): Status: Acute Plan 86-year-old gentleman presenting for congestive heart failure. He previously had right ventricular dysfunction due to lung disease. He is now presenting with shortness of breath and has significantly to do so LVEF with EF of 15-20%. This is globally down ejection fraction. He was also significantly short of breath and volume overloaded. He was given bolus doses of Lasix with some improvement. I will give him 80 mg IV b.i.d. Lasix as before and at metolazone 5 mg. His electrolytes specially potassium has to be closely monitored. He already had low potassium and was given supplementation. Adding spironolactone 25 mg once a day. If his potassium start stabilizing then oral supplementation should be stopped and he should left only on spironolactone. I tried to discuss with him about palliative care as he has severe lung and heart disease at this stage. This will need further discussion. Thank you for allowing me to participate in the care of your patient. Please feel free to contact me if you have any questions. Time Spent With Patient Time: Total time spent is greater than 50% in coordination of care (as documented) at patient's floor/unit and/or counseling patient: Progress Note: Quality Stroke Does the patient have a stroke diagnosis?: No Procedures Date of Service Date of Service: 11/24/21
[2021-11-24] MEDS: Tamsulosin HCL 0.4 MG CAPSULE PO (14:23)
[2021-11-24] MEDS: metOLazone 5 MG TABLET PO (14:23)
[2021-11-24] MEDS: Spironolactone 25 MG TABLET PO (14:23)
--- NOTE | 2021-11-24 14:24 | HO.PM.IMPN ---
Subjective Subjective Date of Service: 11/24/21 Interval History: Patient feeling better this morning, remain short of breath, no palpitation no headache no lightheadedness or dizziness, no acute issues overnight. neg. 3415 L since admission. Review of Systems General no headache, no dizziness no fever chills.? CVS shortness of breath better, no chest pain, no palpitation.? Respiratory no cough, no sputum production? Gastrointestinal no nausea, no vomiting, no abdominal pain Review of Systems: Yes all other systems are reviewed and are negative Review of Systems: Yes all other systems are reviewed and are negative Physical Exam Vital Signs: Vital Signs: Last Vital Signs Temp 97.7 F 11/24/21 11:27 Pulse 116 H 11/24/21 13:29 Resp 20 11/24/21 13:29 BP 110/62 11/24/21 14:23 Pulse Ox 91 L 11/24/21 11:27 Oxygen Flow Rate 3 11/20/21 16:15 BMI result Body Mass Index 22.4 Const: Other: General awake alert x3, mild respiratory distress ? Neck + JVD. CVS? regular rate rhythm, Respiratory lungs no crackles, diminished breath sound?bilaterally, no wheeze, no crackle Gastrointestinal abdomen soft, nontender,?bowel sounds audible Extremities bilateral edema Neuro nonfocal Psych?appropriate affect Objective Data Active Medications Acetaminophen (Acetaminophen 325 Mg Tablet) 650 mg PO Q6H PRN PRN Reason: Pain, Mild (Pain Scale 1-3) Last Admin: 11/24/21 00:45 Dose: 650 mg Documented by: YOGESH Albuterol Sulfate (Albuterol Sulfate 90 Mcg 8 Gm Inhaler) 2 puff INHALE Q6H PRN PRN Reason: Wheezing Last Admin: 11/21/21 19:48 Dose: 2 puff Documented by: MENDY Albuterol/Ipratropium (Albuterol/Iprat 2.5/0.5mg 3 Ml Ampul.Neb) 3 ml INHALE RQ6H WHILE AWAKE [facility] Last Admin: 11/24/21 13:23 Dose: 3 ml Documented by: YONATAN Atorvastatin Calcium (Atorvastatin Calcium 20 Mg Tablet) 20 mg PO DAILY [facility] Last Admin: 11/24/21 09:35 Dose: 20 mg Documented by: LEDY Ferrous Sulfate (Ferrous Sulfate 324 Mg Tablet.) 324 mg PO DAILY [facility] Last Admin: 11/24/21 09:35 Dose: 324 mg Documented by: LEDY Finasteride (Finasteride 5 Mg Tablet) 5 mg PO DAILY [facility] Last Admin: 11/24/21 09:35 Dose: 5 mg Documented by: LEDY Fluticasone Propionate (Fluticasone Propionate Nasal 16 Gm [place]) 1 spray NOSTRIL-B DAILY [facility] Last Admin: 11/24/21 09:39 Dose: 1 spray Documented by: LEDY Fluticasone Propionate (Fluticasone Propionate 100 Mcg Blst.W.Dev) 1 puff INHALE RBID [facility] Last Admin: 11/24/21 07:41 Dose: 1 puff Documented by: YONATAN Furosemide (Furosemide 40 Mg/4 Ml Vial) 80 mg IVPUSH BIDWM [facility]; Protocol Last Admin: 11/24/21 09:35 Dose: 80 mg Documented by: LEDY Hydromorphone HCl (Hydromorphone Hcl 0.5 Mg/0.5 Ml Syringe) 0.5 mg IVPUSH Q6H PRN; Protocol PRN Reason: Breakthrough Pain Last Admin: 11/22/21 23:08 Dose: 0.5 mg Documented by: YOGESH Lorazepam (Lorazepam 0.5 Mg Tablet) 0.5 mg PO DAILY PRN PRN Reason: anxiety Last Admin: 11/22/21 03:48 Dose: 0.5 mg Documented by: VIKTOR Melatonin (Melatonin 3 Mg Tablet) 6 mg PO BEDTIME PRN PRN Reason: Insomnia Last Admin: 11/23/21 22:27 Dose: 6 mg Documented by: YOGESH Pharmacy Consult (Consult Rx Perform Med Rec) 1 each MISCELLANE ONCE PRN PRN Reason: Consult order Potassium Chloride (Potassium Chloride Er 20 Meq Tab.Er.Prt) 40 meq PO DAILY [facility] Last Admin: 11/24/21 09:34 Dose: 40 meq Documented by: LEDY Rivaroxaban (Rivaroxaban 20 Mg Tablet) 20 mg PO DAILY [facility] Last Admin: 11/24/21 09:35 Dose: 20 mg Documented by: LEDY Sacubitril/Valsartan (Sacubitril/Valsartan 1 Tab Tablet) 1 tab PO BID [facility]; Protocol Last Admin: 11/24/21 09:35 Dose: 1 tab Documented by: LEDY Senna (Sennosides 8.6 Mg Tablet) 17.2 mg PO BEDTIME PRN PRN Reason: Constipation Last Admin: 11/23/21 22:27 Dose: 17.2 mg Documented by: YOGESH Sodium Chloride (0.9 % Sodium Chloride Flush 3 Ml Syringe) 3 ml IVFLUSH QSHIFT [facility] Last Admin: 11/24/21 09:54 Dose: Not Given Documented by: LEDY Non-Admin Reason: assessed Sodium Chloride (Sodium Chloride 0.65 % Nasal 44 Ml Sprbtl) 1 spray NOSTRIL-B Q1H PRN PRN Reason: Dryness Last Admin: 11/24/21 09:38 Dose: 1 spray Documented by: LEDY Spironolactone (Spironolactone 25 Mg Tablet) 25 mg PO DAILY [facility]; Protocol Last Admin: 11/24/21 14:23 Dose: 25 mg Documented by: LEDY Tamsulosin HCl (Tamsulosin Hcl 0.4 Mg Capsule) 0.4 mg PO DAILY [facility] Last Admin: 11/24/21 14:23 Dose: 0.4 mg Documented by: LEDY Labs CBC & Chem 7: 11/21/21 07:05 11/24/21 06:47 Labs: Laboratory Results - last 24 hr 11/24/21 06:47 Anion Gap 12 Estim Creat Clear Calc 80.7 Estimated GFR > 60 Random Glucose 90 Calcium 8.4 Microbiology Microbiology Results: Microbiology 11/22/21 17:27 Blood Culture - Preliminary Blood - Venous No growth after 24 hours. 11/22/21 17:27 Blood Culture - Preliminary Blood - Venous No growth after 24 hours. Assessment and Plan (1) Acute exacerbation of CHF (congestive heart failure): Status: Acute (2) Hyperlipidemia: Status: Acute (3) HTN (hypertension): Status: Acute (4) Pulmonary hypertension: Status: Acute (5) (HFpEF) heart failure with preserved ejection fraction: Status: Acute (6) CAD (coronary artery disease): Status: Acute (7) Chronic atrial fibrillation: Status: Acute Plan 86-year-old male with a past medical history of hypertension, hyperlipidemia, CAD, CHF, AFib on Xarelto, history of bladder cancer, pulmonary hypertension on home oxygen, Raynaud's phenomena, COPD; presented to the hospital today with a chief complaint of shortness of breath. noted to be in acute CHF.? Admitted for further management. Acute on chronic CHF with low EF Shortness of breath improving slowly Echo 01/2021-> shows? EF of 65-70%, inferior segment hypokinetic, moderately increased RV cavity size, biatrial enlargement, moderate to severe pulmonary hypertension. Repeat echo showed worsening EF 15-20% with severe global hypokinesis, diastolic function is indeterminate, severely decreased right ventricular systolic function, moderate left atrial dilatation dose of Lasix increased to 80 mg b.i.d. patient being followed by Dr. Goldman he added Aldactone 25 mg daily and gave 1 dose of metolazone 5 mg BNP 3161 on admission bumped to 3408, baseline BNP around 400, normal troponin Continue Daily weights and I's and O's, follow BMP and BNP Will aggressively replace potassium Hypokalemia due to diuretics aggressively replace and follow labs Bilateral leg healing ulcer: Continue dressing change Chronic respiratory failure on 3 L of home oxygen, and BiPAP, mild respiratory distress this morning due to fluid overload continue humidified oxygen and saline spray due to dryness History of chronic AFib:? Rate controlled, not on rate-controlling medication, Continue home rivaroxaban History of hypertension: Hold home amlodipine in order to provide room for blood pressure while diuresing. History of BPH:? Continue home Flomax, finasteride has external Dumont catheter History of COPD: On oxygen 3 L , continue on scheduled and as needed DuoNebs , continue home inhalers, BiPAP History of coronary artery disease status post pacemaker continue statins, Norvasc on hold as above DVT prophylaxis:on Xarelto Code status: DNR /DNI. Patient will need continued inpatient hospitalization due to acute on chronic congestive heart failure requiring IV diuretics. Quality Stroke Does the patient have a stroke diagnosis?: No VTE Prior VTE?: No VTE Risk Level:: Medical - moderate - high VTE Device Contraindication: Treatment Not Indicated VTE Drug Contraindication: N/A - Med Ordered
--- NOTE | 2021-11-24 19:27 | PC.NURSE ---
pt c/o n/t in hands. iv was d/c'ed and new one placed on LUE w/o complications. no acute issues this shift. pt had visitors at bedside. safety and fall precautions in place. md assessed pt at bedside this am. call gibson within reach. pt repo'ed q2.
[2021-11-24] MEDS: HYDROmorphone HCl 0.5 MG/0.5 ML SYRINGE IVPUSH (21:21)
[2021-11-25] VITALS (11 sets, daily range): BP systolic 100–134; BP diastolic 55–79; PULSE 62–114; RESP 18–22; TEMP 36.4–37.1; O2SAT 93–100; BMI 22.1
[2021-11-25] MEDS: 0.9 % Sodium Chloride Flush 3 ML SYRINGE IVFLUSH ×3 (00:15→15:18)
[2021-11-25] MEDS: LORazepam 0.5 MG TABLET PO (02:05)
[2021-11-25] MEDS: Acetaminophen 325 MG TABLET 650 MG PO ×2 (02:05→20:49)
[2021-11-25] MEDS: HYDROmorphone HCl 0.5 MG/0.5 ML SYRINGE IVPUSH ×3 (02:46→21:06)
[2021-11-25 06:41] LABS: Anion Gap 12 (12-20); Blood Urea Nitrogen 22 mg/dL (9-16); Calcium 8.5 mg/dL (8.4-10.2); Carbon Dioxide 30 mmol/L (22-29); Chloride 101 mmol/L (96-108); Creatinine Clr Calc Pharmacy 69.9; Estimated Glomerular Filt Rate > 60; Glucose Random 110 mg/dL (60-115); Potassium 3.8 mmol/L (3.3-5.1); Sodium 139 mmol/L (135-145)
[2021-11-25] MEDS: Albuterol/Iprat 2.5/0.5MG 3 ML AMPUL.NEB INHALE ×3 (08:25→20:00)
[2021-11-25] MEDS: Finasteride 5 MG TABLET PO (11:24)
[2021-11-25] MEDS: Potassium Chloride ER 20 MEQ TAB.ER.PRT 40 MEQ PO (11:31)
[2021-11-25] MEDS: Sacubitril/Valsartan 24/26 1 TAB TABLET PO ×2 (11:31→20:49)
[2021-11-25] MEDS: Tamsulosin HCL 0.4 MG CAPSULE PO (11:31)
[2021-11-25] MEDS: Rivaroxaban 20 MG TABLET PO (11:31)
[2021-11-25] MEDS: Spironolactone 25 MG TABLET PO (11:32)
[2021-11-25] MEDS: Ferrous Sulfate 324 MG TABLET.DR PO (11:32)
[2021-11-25] MEDS: Atorvastatin Calcium 20 MG TABLET PO (11:32)
--- NOTE | 2021-11-25 13:43 | PM.PNCARD ---
Subjective Subjective Date of Service: 11/25/21 Principal diagnosis: Biventricular heart failure. Interval history: Feeling better. Physical Exam Vital Signs: Last Vital Signs Temp 97.5 F 11/25/21 11:55 Pulse 65 11/25/21 11:55 Resp 19 11/25/21 11:55 BP 125/56 L 11/25/21 11:55 Pulse Ox 98 11/25/21 11:55 Oxygen Flow Rate 3 11/20/21 16:15 BMI result Body Mass Index 22.1 GENERAL APPEARANCE: in no acute distress, pleasant. NECK: no carotid bruit, positive jugular venous distention. SKIN: no suspicious lesions, warm and dry. HEART: no murmurs, regular rate and rhythm. LUNGS: clear to auscultation bilaterally. ABDOMEN: soft, nontender. EXTREMITIES: Mild edema. PERIPHERAL PULSES: equal. NEUROLOGIC: No gross deficits, AAO X 3 Objective Labs and Meds Result diagrams: 11/21/21 07:05 11/25/21 05:51 Lab results: Laboratory Results - last 24 hr 11/25/21 05:51 Sodium 139 Potassium 3.8 D Chloride 101 Carbon Dioxide 30 H Anion Gap 12 BUN 22 H Creatinine 0.81 Estim Creat Clear Calc 69.9 Estimated GFR > 60 Random Glucose 110 Calcium 8.5 Progress Note: A&P Assessment and plan (1) Acute exacerbation of CHF (congestive heart failure): Status: Acute Plan 86-year-old gentleman with biventricular heart failure. Ejection fraction is 15-20% based on echocardiography on this admission which is a new diagnosis for him. Previously had right sided heart failure mostly. Was significantly volume overloaded and has been diuresed with IV diuretics and metolazone. Clinically his volume status looks better today. I think we continue IV diuretics today and change him to torsemide tomorrow. Would favor putting him on 40 mg of torsemide in the morning and 20 in the afternoon. Already started on Entresto. I think he should stay on the same dose for now. Overall improving. We will follow along with you. Thank you for allowing me to participate in the care of your patient. Please feel free to contact me if you have any questions. Time Spent With Patient Time: Total time spent is greater than 50% in coordination of care (as documented) at patient's floor/unit and/or counseling patient: Progress Note: Quality Stroke Does the patient have a stroke diagnosis?: No Procedures Date of Service Date of Service: 11/25/21
--- NOTE | 2021-11-25 14:24 | P.PNIM_ITS ---
Subjective Subjective Date of Service: 11/25/21 Interval History: Feeling better less short of breath this morning, concern about diagnosis of both systolic and diastolic heart failure, denies headache, no dizziness no chest pain, no palpitation. Review of Systems Review of Systems: Yes all other systems are reviewed and are negative Physical Exam Vital Signs: Vital Signs: Last Vital Signs Temp 97.5 F 11/25/21 11:55 Pulse 65 11/25/21 11:55 Resp 19 11/25/21 11:55 BP 125/56 L 11/25/21 11:55 Pulse Ox 98 11/25/21 11:55 Oxygen Flow Rate 3 11/20/21 16:15 BMI result Body Mass Index 22.1 Const: Other: General awake alert x3, mild respiratory distress ? Neck + JVD. CVS? regular rate rhythm, Respiratory lungs no crackles, diminished breath sound?bilaterally, no wheeze, no crackle Gastrointestinal abdomen soft, nontender,?bowel sounds audible Extremities bilateral edema improving Neuro nonfocal Psych?appropriate affect Objective Data Active Medications Acetaminophen (Acetaminophen 325 Mg Tablet) 650 mg PO Q6H PRN PRN Reason: Pain, Mild (Pain Scale 1-3) Last Admin: 11/25/21 02:05 Dose: 650 mg Documented by: SUE Albuterol Sulfate (Albuterol Sulfate 90 Mcg 8 Gm Inhaler) 2 puff INHALE Q6H PRN PRN Reason: Wheezing Last Admin: 11/21/21 19:48 Dose: 2 puff Documented by: MENDY Albuterol/Ipratropium (Albuterol/Iprat 2.5/0.5mg 3 Ml Ampul.Neb) 3 ml INHALE RQ6H WHILE AWAKE [facility] Last Admin: 11/25/21 08:25 Dose: 3 ml Documented by: HIRA Atorvastatin Calcium (Atorvastatin Calcium 20 Mg Tablet) 20 mg PO DAILY [facility] Last Admin: 11/25/21 11:32 Dose: 20 mg Documented by: TREVA Ferrous Sulfate (Ferrous Sulfate 324 Mg Tablet.) 324 mg PO DAILY [facility] Last Admin: 11/25/21 11:32 Dose: 324 mg Documented by: TREVA Finasteride (Finasteride 5 Mg Tablet) 5 mg PO DAILY [facility] Last Admin: 11/25/21 11:24 Dose: 5 mg Documented by: TREVA Fluticasone Propionate (Fluticasone Propionate Nasal 16 Gm [place]) 1 spray NOSTRIL-B DAILY [facility] Last Admin: 11/25/21 12:01 Dose: Not Given Documented by: TREVA Non-Admin Reason: Patient Refused Fluticasone Propionate (Fluticasone Propionate 100 Mcg Blst.W.Dev) 1 puff INHALE RBID [facility] Last Admin: 11/25/21 08:26 Dose: Not Given Documented by: HIRA Non-Admin Reason: Patient Asleep Furosemide (Furosemide 40 Mg/4 Ml Vial) 80 mg IVPUSH BIDWM [facility]; Protocol Last Admin: 11/25/21 12:01 Dose: Not Given Documented by: TREVA Non-Admin Reason: Physician Held Med Hydromorphone HCl (Hydromorphone Hcl 0.5 Mg/0.5 Ml Syringe) 0.5 mg IVPUSH Q6H PRN; Protocol PRN Reason: Breakthrough Pain Last Admin: 11/25/21 02:46 Dose: 0.5 mg Documented by: SUE Lorazepam (Lorazepam 0.5 Mg Tablet) 0.5 mg PO DAILY PRN PRN Reason: anxiety Last Admin: 11/25/21 02:05 Dose: 0.5 mg Documented by: SUE Melatonin (Melatonin 3 Mg Tablet) 6 mg PO BEDTIME PRN PRN Reason: Insomnia Last Admin: 11/23/21 22:27 Dose: 6 mg Documented by: YOGESH Pharmacy Consult (Consult Rx Perform Med Rec) 1 each MISCELLANE ONCE PRN PRN Reason: Consult order Potassium Chloride (Potassium Chloride Er 20 Meq Tab.Er.Prt) 40 meq PO DAILY [facility] Last Admin: 11/25/21 11:31 Dose: 40 meq Documented by: TREVA Rivaroxaban (Rivaroxaban 20 Mg Tablet) 20 mg PO DAILY [facility] Last Admin: 11/25/21 11:31 Dose: 20 mg Documented by: TREVA Sacubitril/Valsartan (Sacubitril/Valsartan 1 Tab Tablet) 1 tab PO BID [facility]; Protocol Last Admin: 11/25/21 11:31 Dose: 1 tab Documented by: TREVA Senna (Sennosides 8.6 Mg Tablet) 17.2 mg PO BEDTIME PRN PRN Reason: Constipation Last Admin: 11/23/21 22:27 Dose: 17.2 mg Documented by: YOGESH Sodium Chloride (0.9 % Sodium Chloride Flush 3 Ml Syringe) 3 ml IVFLUSH QSHIFT [facility] Last Admin: 11/25/21 11:32 Dose: 3 ml Documented by: TREVA Sodium Chloride (Sodium Chloride 0.65 % Nasal 44 Ml Sprbtl) 1 spray NOSTRIL-B Q1H PRN PRN Reason: Dryness Last Admin: 11/24/21 09:38 Dose: 1 spray Documented by: MARYBEL-SCAR Spironolactone (Spironolactone 25 Mg Tablet) 25 mg PO DAILY [facility]; Protocol Last Admin: 11/25/21 11:32 Dose: 25 mg Documented by: TREVA Tamsulosin HCl (Tamsulosin Hcl 0.4 Mg Capsule) 0.4 mg PO DAILY [facility] Last Admin: 11/25/21 11:31 Dose: 0.4 mg Documented by: TREVA Labs CBC & Chem 7: 11/21/21 07:05 11/25/21 05:51 Labs: Laboratory Results - last 24 hr 11/25/21 05:51 Anion Gap 12 Estim Creat Clear Calc 69.9 Estimated GFR > 60 Random Glucose 110 Calcium 8.5 Microbiology Microbiology Results: Microbiology 11/22/21 17:27 Blood Culture - Preliminary Blood - Venous No growth after 48 hours. 11/22/21 17:27 Blood Culture - Preliminary Blood - Venous No growth after 48 hours. Assessment and Plan (1) Acute exacerbation of CHF (congestive heart failure): Status: Acute (2) Hyperlipidemia: Status: Acute (3) HTN (hypertension): Status: Acute (4) Pulmonary hypertension: Status: Acute (5) (HFpEF) heart failure with preserved ejection fraction: Status: Acute (6) CAD (coronary artery disease): Status: Acute (7) Chronic atrial fibrillation: Status: Acute Plan 86-year-old male with a past medical history of hypertension, hyperlipidemia, CAD, CHF, AFib on Xarelto, history of bladder cancer, pulmonary hypertension on home oxygen, Raynaud's phenomena, COPD; presented to the hospital today with a chief complaint of shortness of breath. noted to be in acute CHF.? Admitted for further management. Acute on chronic CHF with low EF Shortness of breath improving Echo 01/2021-> shows? EF of 65-70%, inferior segment hypokinetic, moderately increased RV cavity size, biatrial enlargement, moderate to severe pulmonary hypertension. Repeat echo showed worsening EF 15-20% with severe global hypokinesis, diastolic function is indeterminate, severely decreased right ventricular systolic function, moderate left atrial dilatation On Lasix 80 mg b.i.d., Aldactone 25 mg, status post metolazone -4.5 L, stable electrolytes Case discussed with Dr. Goldman he recommend to change Lasix to by mouth torsemide 40 at a.m.and 20 in afternoon Spoke with patient regarding palliative care. Hypokalemia due to diuretics resolved Bilateral leg healing ulcer: Continue dressing change Chronic respiratory failure on 3 L of home oxygen, and BiPAP, no respiratory distress History of chronic AFib:? Rate controlled, not on rate-controlling medication, Continue home rivaroxaban History of hypertension: Hold home amlodipine in order to provide room for blood pressure while diuresing. History of BPH:? Continue home Flomax, finasteride has external Dumont catheter History of COPD: No acute exacerbation, On oxygen 3 L , continue on scheduled and as needed DuoNebs , continue home inhalers, BiPAP History of coronary artery disease status post pacemaker continue statins, Norvasc on hold as above DVT prophylaxis:on Xarelto Code status: DNR /DNI. Patient will need continued inpatient hospitalization due to acute on chronic congestive heart failure requiring IV diuretics. Quality Stroke Does the patient have a stroke diagnosis?: No VTE Prior VTE?: No VTE Risk Level:: Medical - moderate - high VTE Device Contraindication: Treatment Not Indicated VTE Drug Contraindication: N/A - Med Ordered
[2021-11-25] MEDS: Furosemide 40 MG/4 ML VIAL 80 MG IVPUSH (18:43)
[2021-11-25] MEDS: Fluticasone Propionate 100 MCG BLST.W.DEV 1 PUFF INHALE (20:00)
[2021-11-26] VITALS (9 sets, daily range): BP systolic 89–125; BP diastolic 42–67; PULSE 60–62; RESP 16–20; TEMP 35.8–36.9; O2SAT 90–100; BMI 21.7
[2021-11-26] MEDS: HYDROmorphone HCl 0.5 MG/0.5 ML SYRINGE IVPUSH (05:02)
[2021-11-26] MEDS: 0.9 % Sodium Chloride Flush 3 ML SYRINGE IVFLUSH ×2 (05:03→14:27)
[2021-11-26 06:46] LABS: Anion Gap 14 (12-20); Blood Urea Nitrogen 26 mg/dL (9-16); Calcium 8.4 mg/dL (8.4-10.2); Carbon Dioxide 28 mmol/L (22-29); Chloride 103 mmol/L (96-108); Creatinine Clr Calc Pharmacy 64.5; Estimated Glomerular Filt Rate > 60; Glucose Random 101 mg/dL (60-115); Potassium 3.6 mmol/L (3.3-5.1); Sodium 141 mmol/L (135-145)
[2021-11-26 06:54] LABS: B Type Natriuretic Peptide 3461 pg/mL (<100)
[2021-11-26] MEDS: Albuterol/Iprat 2.5/0.5MG 3 ML AMPUL.NEB INHALE ×3 (08:08→19:27)
[2021-11-26] MEDS: Fluticasone Propionate 100 MCG BLST.W.DEV 1 PUFF INHALE ×2 (08:08→19:27)
[2021-11-26] MEDS: Finasteride 5 MG TABLET PO (09:58)
[2021-11-26] MEDS: Spironolactone 25 MG TABLET PO (09:58)
[2021-11-26] MEDS: Potassium Chloride ER 20 MEQ TAB.ER.PRT 40 MEQ PO (09:58)
[2021-11-26] MEDS: Ferrous Sulfate 324 MG TABLET.DR PO (09:59)
[2021-11-26] MEDS: Tamsulosin HCL 0.4 MG CAPSULE PO (09:59)
[2021-11-26] MEDS: Atorvastatin Calcium 20 MG TABLET PO (09:59)
[2021-11-26] MEDS: Rivaroxaban 20 MG TABLET PO (09:59)
[2021-11-26] MEDS: Furosemide 40 MG/4 ML VIAL 80 MG IVPUSH (09:59)
[2021-11-26] MEDS: Sacubitril/Valsartan 24/26 1 TAB TABLET PO ×2 (09:59→20:50)
[2021-11-26] MEDS: Sodium Chloride 0.65 % Nasal 44 ML SPRBTL 1 SPRAY NOSTRIL-B (10:02)
[2021-11-26 10:52] LABS: Appearance Urine CLEAR; Color Urine YELLOW; Glucose Urine UA NEG (NEG); Leukocyte Esterase Urine 1+ (NEG); Nitrite Urine NEG (NEG); UACC Culture Trigger YES; Urine Blood 1+ (NEG); Urine Ketones NEG (NEG); Urine Protein NEG (NEG-TRACE)
[2021-11-26 11:14] LABS: Squamous Epithelial Cell Urine TRACE /LPF
--- NOTE | 2021-11-26 11:38 | P.PNIM_ITS ---
Subjective Subjective Date of Service: 11/27/21 Interval History: Patient awake alert this morning feels better, less shortness of breath, has chronic shortness of breath at baseline, denies chest pain, no palpitation, tolerating diet events from last night noted patient complained of lower abdominal pain noted to have bladder scan of 500 given been voiding trial patient unable to void repeat bladder scan this morning is 1000 patient has no urge to urinate complaining of urinary burning. Review of Systems [employer] no headache no dizziness CVS no chest pain, no palpitation Musculoskeletal no pain Review of Systems: Yes all other systems are reviewed and are negative Physical Exam Vital Signs: Vital Signs: Last Vital Signs Temp 97.7 F 11/26/21 07:49 Pulse 62 11/26/21 08:08 Resp 20 11/26/21 08:08 BP 117/65 11/26/21 07:49 Pulse Ox 100 11/26/21 07:49 Oxygen Flow Rate 3 11/20/21 16:15 BMI result Body Mass Index 21.7 Const: Other: General awake aler t x3, no respirato ry distress ? Neck + JVD. CVS? regul ar rate rhythm, Re spiratory lungs no crackles, clear t o auscultation, no wheeze, no crackl e Gastrointestinal abdomen soft, non tender,?bowel soun ds audible Extremi ties bilateral shayan ma improved/acro c yanosis Neuro nonf ocal Psych?appropr iate affect Objective Data Active Medications Acetaminophen (Acetaminophen 325 Mg Tablet) 650 mg PO Q6H PRN PRN Reason: Pain, Mild (Pain Scale 1-3) Last Admin: 11/25/21 20:49 Dose: 650 mg Documented by: LEEANNE Albuterol Sulfate (Albuterol Sulfate 90 Mcg 8 Gm Inhaler) 2 puff INHALE Q6H PRN PRN Reason: Wheezing Last Admin: 11/21/21 19:48 Dose: 2 puff Documented by: MENDY Albuterol/Ipratropium (Albuterol/Iprat 2.5/0.5mg 3 Ml Ampul.Neb) 3 ml INHALE RQ6H WHILE AWAKE [facility] Last Admin: 11/26/21 08:08 Dose: 3 ml Documented by: HIRA Atorvastatin Calcium (Atorvastatin Calcium 20 Mg Tablet) 20 mg PO DAILY [facility] Last Admin: 11/26/21 09:59 Dose: 20 mg Documented by: LEDY Ferrous Sulfate (Ferrous Sulfate 324 Mg Tablet.Dr) 324 mg PO DAILY [facility] Last Admin: 11/26/21 09:59 Dose: 324 mg Documented by: LEDY Finasteride (Finasteride 5 Mg Tablet) 5 mg PO DAILY [facility] Last Admin: 11/26/21 09:58 Dose: 5 mg Documented by: LEDY Fluticasone Propionate (Fluticasone Propionate Nasal 16 Gm [place]) 1 spray NOSTRIL-B DAILY [facility] Last Admin: 11/26/21 10:03 Dose: Not Given Documented by: LEDY Non-Admin Reason: pt refused Fluticasone Propionate (Fluticasone Propionate 100 Mcg Blst.W.Dev) 1 puff INHALE RBID [facility] Last Admin: 11/26/21 08:08 Dose: 1 puff Documented by: HIRA Hydromorphone HCl (Hydromorphone Hcl 0.5 Mg/0.5 Ml Syringe) 0.5 mg IVPUSH Q4H PRN; Protocol PRN Reason: Breakthrough Pain Last Admin: 11/26/21 05:02 Dose: 0.5 mg Documented by: LEEANNE Melatonin (Melatonin 3 Mg Tablet) 6 mg PO BEDTIME PRN PRN Reason: Insomnia Last Admin: 11/23/21 22:27 Dose: 6 mg Documented by: YOGESH Pharmacy Consult (Consult Rx Perform Med Rec) 1 each MISCELLANE ONCE PRN PRN Reason: Consult order Potassium Chloride (Potassium Chloride Er 20 Meq Tab.Er.Prt) 40 meq PO DAILY [facility] Last Admin: 11/26/21 09:58 Dose: 40 meq Documented by: LEDY Rivaroxaban (Rivaroxaban 20 Mg Tablet) 20 mg PO DAILY [facility] Last Admin: 11/26/21 09:59 Dose: 20 mg Documented by: LEDY Sacubitril/Valsartan (Sacubitril/Valsartan 1 Tab Tablet) 1 tab PO BID [facility]; Protocol Last Admin: 11/26/21 09:59 Dose: 1 tab Documented by: LEDY Senna (Sennosides 8.6 Mg Tablet) 17.2 mg PO BEDTIME PRN PRN Reason: Constipation Last Admin: 11/23/21 22:27 Dose: 17.2 mg Documented by: VANDANAUMOC Sodium Chloride (0.9 % Sodium Chloride Flush 3 Ml Syringe) 3 ml IVFLUSH QSHIFT [facility] Last Admin: 11/26/21 07:58 Dose: Not Given Documented by: MARYBEL-SOFFA Non-Admin Reason: assessed Sodium Chloride (Sodium Chloride 0.65 % Nasal 44 Ml Sprbtl) 1 spray NOSTRIL-B Q1H PRN PRN Reason: Dryness Last Admin: 11/26/21 10:02 Dose: 1 spray Documented by: MARYBEL-SOFFA Spironolactone (Spironolactone 25 Mg Tablet) 25 mg PO DAILY [facility]; Protocol Last Admin: 11/26/21 09:58 Dose: 25 mg Documented by: MARYBEL-SCAR Tamsulosin HCl (Tamsulosin Hcl 0.4 Mg Capsule) 0.4 mg PO DAILY [facility] Last Admin: 11/26/21 09:59 Dose: 0.4 mg Documented by: MARYBEL-SCAR Torsemide (Torsemide 20 Mg Tablet) 40 mg PO BID [facility]; Protocol Labs CBC & Chem 7: 11/21/21 07:05 11/26/21 06:03 Labs: Laboratory Results - last 24 hr 11/26/21 11/26/21 11/26/21 06:03 06:03 10:40 Anion Gap 14 Estim Creat Clear Calc 64.5 Estimated GFR > 60 Random Glucose 101 Calcium 8.4 B-Natriuretic Peptide 3461 H Urine Color YELLOW Urine Appearance CLEAR Urine pH 6.0 Ur Specific [place] 1.010 Urine Protein NEG Urine Glucose (UA) NEG Urine Ketones NEG Urine Blood 1+ H Urine Nitrite NEG Ur Leukocyte Esterase 1+ H Urine RBC 1-4 Urine WBC 1-4 Ur Squamous Epith Cells TRACE Urine Bacteria NONE Microbiology Microbiology Results: Microbiology 11/20/21 17:02 Blood Culture - Final Blood - Venous No growth after 5 days. 11/20/21 17:00 Blood Culture - Final Blood - Venous No growth after 5 days. Assessment and Plan (1) Acute exacerbation of CHF (congestive heart failure): Status: Acute (2) Hyperlipidemia: Status: Acute (3) HTN (hypertension): Status: Acute (4) Pulmonary hypertension: Status: Acute (5) (HFpEF) heart failure with preserved ejection fraction: Status: Acute (6) CAD (coronary artery disease): Status: Acute (7) Chronic atrial fibrillation: Status: Acute Plan 86-year-old male with a past medical history of hypertension, hyperlipidemia, CAD, CHF, AFib on Xarelto, history of bladder cancer, pulmonary hypertension on home oxygen, Raynaud's phenomena, COPD; presented to the hospital today with a chief complaint of shortness of breath. noted to be in acute CHF.? Admitted for further management. Acute on chronic CHF with low EF Shortness of breath improving , has chronic baseline shortness of breath Echo 01/2021-> shows? EF of 65-70%, inferior segment hypokinetic, moderately increased RV cavity size, biatrial enlargement, moderate to severe pulmonary hypertension. Repeat echo showed worsening EF 15-20% with severe global hypokinesis, diastolic function is indeterminate, severely decreased right ventricular systolic function, moderate left atrial dilatation On Lasix 80 mg b.i.d., Aldactone 25 mg, status post metolazone Case discussed with Cardiology will change Lasix to torsemide 40 b.i.d. -6 L, stable electrolytes and renal function Case discussed with Dr. Partida he will review function of pacemaker and make adjustment Hypokalemia due to diuretics resolved Bilateral leg healing ulcer: Continue dressing change Chronic respiratory failure on 3 L of home oxygen, and BiPAP, no respiratory distress/acrocyanosis will check ABG History of chronic AFib: Tele monitor showed he is V pacing at elevated rates up to 120, not on rate-controlling medication due to issues with bradycardia in the past, had a pacemaker placed in March 2021 Patient will have device interrogated today, Continue home rivaroxaban History of hypertension: bp stable, amlodipine discontinued to help with blood pressure while being diuresed History of BPH:? Noted to have significant urinary retention will place Dumont catheter Continue home Flomax, finasteride check urinalysis History of COPD: No acute exacerbation, On oxygen 3 L , continue on scheduled and as needed DuoNebs , continue home inhalers, BiPAP History of coronary artery disease status post pacemaker continue statins, Norvasc on hold as above DVT prophylaxis:on Xarelto Code status: DNR /DNI. Patient will need continued inpatient hospitalization due to acute on chronic congestive heart failure with pacemaker firing above rate needs pacemaker adjustment/urinary retention Quality Stroke Does the patient have a stroke diagnosis?: No VTE Prior VTE?: No VTE Risk Level:: Medical - moderate - high VTE Device Contraindication: Treatment Not Indicated VTE Drug Contraindication: N/A - Med Ordered
[2021-11-26 13:13] LABS: ABG Base Excess 1.1 mmol/L; ABG HCO3 23 mmol/L (22-26); ABG pCO2 30 mmHg (32-45); ABG pH 7.48 (7.35-7.45); ABG pO2 76 mmHg (83-108)
--- NOTE | 2021-11-26 13:23 | PC.NURSE ---
per md place pappas and obtain urine culture d/t retention. pt was bladder scanned this AM, was unable to void. cards, md and rt assessed pt at bedside. cards assessed pt's pacemaker. RT obtained ABGs as ordered. md informed of pt's increased SOB and cyanosis to lips and fingers. safety and fall precautions in place. call gibson within reach. pt repo'ed per protocol.
[2021-11-26 14:07] LABS: ABG Refer to POC result
--- NOTE | 2021-11-26 14:17 | MHC.CM.PN ---
Met with Patients and dtr re dc planning. Preferences obtained, referrals sent. [facility]. The 3rd facility [facility] They have not responded yet. A PT eval is planned 1-2 days per MD.
--- NOTE | 2021-11-26 14:39 | PM.PNCARD ---
Subjective Subjective Date of Service: 11/26/21 <JIMBO Gomez - Last Filed: 11/26/21 16:03> 11/26/21 <Albert Cabrera MD - Last Filed: 11/26/21 17:06> Principal diagnosis: Biventricular heart failure. <JIMBO Gomez - Last Filed: 11/26/21 16:03> Interval history: Seen at 1010. Today he is observed sitting on edge of bed. Tells me he feels his usual chronic sob, not better or worse. Wearing O2 with cannula. No cough. Denies pain, palpitation, dizziness. Leg edema improving. Has gauze dressings on his lower legs. Fingers with nail bed cyanosis. He is not sure if they usual look like that or not. Tele showing V paced rhythm with rates ranging 60s up to 120s. <JIMBO Gomez - Last Filed: 11/26/21 16:03> Review of Systems Review of Systems as above <JIMBO Gomez - Last Filed: 11/26/21 16:03> Yes all other systems are reviewed and are negative <JIMBO Gomez - Last Filed: 11/26/21 16:03> Physical Exam Vital Signs: Last Vital Signs Temp 97.8 F 11/26/21 11:45 Pulse 60 11/26/21 11:45 Resp 20 11/26/21 11:45 BP 101/55 L 11/26/21 11:45 Pulse Ox 100 11/26/21 11:45 Oxygen Flow Rate 3 11/20/21 16:15 BMI result Body Mass Index 21.7 <JIMBO Gomez - Last Filed: 11/26/21 16:03> Const Other: frail elderly, male, mild sob noted during exam <JIMBO Gomez Last Filed: 11/26/21 16:03> General: cooperative, no acute distress, alert and awake <JIMBO Gomez Last Filed: 11/26/21 16:03> Orientation/consciousness: patient oriented x3 <JIMBO Gomez Last Filed: 11/26/21 16:03> Neck Neck: Yes normal visual inspection <Ana StevensCHET-C - Last Filed: 11/26/21 16:03> Resp Other: Breathing mildly short but not labored. <Ana StevensCHET-C - Last Filed: 11/26/21 16:03> Effort & Inspection: able to speak in complete sentences <Ana StevensCHETC - Last Filed: 11/26/21 16:03> Auscultation: clear to auscultation bilaterally, no rales, no rhonchi and no wheezes <Ana StevensCHET-C - Last Filed: 11/26/21 16:03> Cardio Rate: regular rate <Ana StevensCHETC - Last Filed: 11/26/21 16:03> Rhythm: regular rhythm <Ana StevensCHET-C - Last Filed: 11/26/21 16:03> Heart sounds: S1 normal heart sound present and S2 normal heart sound present <Ana StevensCHET-C - Last Filed: 11/26/21 16:03> GI Inspection: Yes normal to inspection <Ana StevensCHET-C - Last Filed: 11/26/21 16:03> Neuro General: patient oriented x3 <Ana StevensCHET-C - Last Filed: 11/26/21 16:03> Extrem Other: some pitting edema present in upper posterior thighs - improved from my prior assessments <Ana StevensCHET-C - Last Filed: 11/26/21 16:03> Objective Labs and Meds Result diagrams: : 11/21/21 07:05 11/26/21 06:03 <Ana StevensCHET-C - Last Filed: 11/26/21 16:03> Lab results: Laboratory Results - last 24 hr 11/26/21 11/26/21 11/26/21 06:03 06:03 10:40 O2 Saturation ABG pH at Pt Temp ABG pCO2 at Pt Temp ABG pO2 at Pt Temp ABG HCO3 ABG Base Excess (Actual) Sodium 141 Potassium 3.6 Chloride 103 Carbon Dioxide 28 Anion Gap 14 BUN 26 H Creatinine 0.85 Estim Creat Clear Calc 64.5 Estimated GFR > 60 Random Glucose 101 Calcium 8.4 B-Natriuretic Peptide 3461 H Urine Color YELLOW Urine Appearance CLEAR Urine pH 6.0 Ur Specific [place] 1.010 Urine Protein NEG Urine Glucose (UA) NEG Urine Ketones NEG Urine Blood 1+ H Urine Nitrite NEG Ur Leukocyte Esterase 1+ H Urine RBC 1-4 Urine WBC 1-4 Ur Squamous Epith Cells TRACE Urine Bacteria NONE 11/26/21 10:44 O2 Saturation 95.0 ABG pH at Pt Temp 7.48 H ABG pCO2 at Pt Temp 30 L ABG pO2 at Pt Temp 76 L ABG HCO3 23 ABG Base Excess (Actual) 1.1 Sodium Potassium Chloride Carbon Dioxide Anion Gap BUN Creatinine Estim Creat Clear Calc Estimated GFR Random Glucose Calcium B-Natriuretic Peptide Urine Color Urine Appearance Urine pH Ur Specific [place] Urine Protein Urine Glucose (UA) Urine Ketones Urine Blood Urine Nitrite Ur Leukocyte Esterase Urine RBC Urine WBC Ur Squamous Epith Cells Urine Bacteria <JIMBO Gomez - Last Filed: 11/26/21 16:03> Progress Note: A&P Assessment and plan (1) Acute exacerbation of CHF (congestive heart failure): Status: Acute <JIMBO Gomez - Last Filed: 11/26/21 16:03> Assessment and Plan: Hx of HFpEF, more right HF. Admitted with increased sob, leg edema. Echo showed EF 15-20%. flattened septum in systole and diastole, comments about a mobile structure on AV. Prior echo 02/12/2021 showed EF 65-70%, basal inferior hypokinetic, moderate increase in the RV size, severe biatrial enlargement , moderate TR, moderate to severe pulmonary hypertension. His CMP could be related to Vpacing - Tele monitor is showing V paced rhythm with rates up to 120s at times. He is being diuresed with IV Lasix with negative fluid balance 4805 cc since admission. He has COPD and has chronic sob. He currently reports his breathing is his usual sob. Sat 91% on 3 liters. Nail beds cyanotic appearance, discussed with hospitalist. At this time, will transition to Torsemide 40mg bid. He has already been started on Entresto this admit. Continue strict I&O monitoring, daily weights.? Close monitoring of electrolytes and kidney function with electrolyte replacement as warranted.? Ongoing management of COPD as directed by hospitalist.?We will follow. <JIMBO Gomez - Last Filed: 11/26/21 16:03> Hx of HFpEF, more right HF. Admitted with increased sob, leg edema. Echo showed EF 15-20%. flattened septum in systole and diastole, comments about a mobile structure on AV. Prior echo 02/12/2021 showed EF 65-70%, basal inferior hypokinetic, moderate increase in the RV size, severe biatrial enlargement , moderate TR, moderate to severe pulmonary hypertension. His CMP could be related to Vpacing - Tele monitor is showing V paced rhythm with rates up to 120s at times. He is being diuresed with IV Lasix with negative fluid balance 4805 cc since admission. He has COPD and has chronic sob. He currently reports his breathing is his usual sob. Sat 91% on 3 liters. Nail beds cyanotic appearance, discussed with hospitalist. At this time, will transition to Torsemide 40mg bid. He has already been started on Entresto this admit. Continue strict I&O monitoring, daily weights.? Close monitoring of electrolytes and kidney function with electrolyte replacement as warranted.? Ongoing management of COPD as directed by hospitalist.?We will follow. Patient seen and examined. Case discussed with Ana Stevens. Patient continues to be significantly short of breath. This is not improve with diuresis although his leg edema and right heart failure symptoms have improved. Currently still continues to have leg edema. Okay with switching to p.o. torsemide but if he does not improve will consider switching back to IV diuresis with Lasix and maybe Lasix drip. Continue to monitor renal function as well as electrolytes and replace as needed. Continue Entresto and spironolactone. Once his better volume situated should consider adding beta-joseph therapy to his regimen as well. Severe cardiomyopathy new onset which appears to be most likely related to RV pacing. May require cardiac resynchronization therapy if LV function does not improve with reprogramming was pacemaker, see below. Continue to optimize his pulmonary function. Overall prognosis is guarded <Albert Cabrera MD - Last Filed: 11/26/21 17:06> (2) Cardiac pacemaker in situ: Status: Acute <JIMBO Gomez - Last Filed: 11/26/21 16:03> Assessment and Plan: Medtronic Micra, leadless pacemaker. Pacemaker interrogation today is showing battery > 8 yr, VVIR mode, Low rate 60, upper tracking rate 130, COMMUNICATIONS ATTENDANT 97%. Tele shows that he Vpaces at rates up to 120s. The elevated heart rates and high percent of Vpacing may be contributing to his new CMP. We will contact the Medtronic Rep and ask that the change device mode to VVI instread of VVIR. <JIMBO Gomez - Last Filed: 11/26/21 16:03> Medtronic Micra, leadless pacemaker. Pacemaker interrogation today is showing battery > 8 yr, VVIR mode, Low rate 60, upper tracking rate 130, COMMUNICATIONS ATTENDANT 97%. Tele shows that he Vpaces at rates up to 120s. The elevated heart rates and high percent of Vpacing may be contributing to his new CMP. We will contact the Med[employer] Rep and ask that the change device mode to VVI instread of VVIR. Patient pacing at high rate. Has leadless RV pacemaker. Most likely rate response to breathing. Will switch his programming from VVIR to VVI at 50 beats per minute. Hopefully this will lead to limited RV pacing and over time improve his LV systolic function. <Albert Cabrera MD - Last Filed: 11/26/21 17:06> (3) Cardiomyopathy: Status: Acute <JIMBO Gomez - Last Filed: 11/26/21 16:03> Assessment and Plan: new CMP found this admit. Has not been on rate slowing meds as he had issues with bradycardia in past and had PPM placed 03/2021. Entresto added. BP on low side and will need to be followed. <JIMBO Gomez - Last Filed: 11/26/21 16:03> (4) Chronic atrial fibrillation: Status: Acute <JIMBO Gomez - Last Filed: 11/26/21 16:03> Assessment and Plan: Hx chronic afib. Bradycardia requiring PPM placement 03/2021. He was not on rate slowing meds. Now the Tele monitor shows heart rates are elevated at times, up to 120s. No palpitations.Will give Digoxin 0.25mg X3 today. On Xarelto for anticoagulation. <JIMBO Gomez - Last Filed: 11/26/21 16:03> Hx chronic afib. Bradycardia requiring PPM placement 03/2021. He was not on rate slowing meds. Now the Tele monitor shows heart rates are elevated at times, up to 120s. No palpitations.Will give Digoxin 0.25mg X3 today. On Xarelto for anticoagulation. Heart rate elevated at sometimes. Will digitalize him today. Eventually start him on beta-joseph therapy once he is better volume situated. Continue full oral anticoagulation with Xarelto. Will continue to follow with you. <Albert Cabrera MD - Last Filed: 11/26/21 17:06> Time Spent With Patient Time: Total time spent is greater than 50% in coordination of care (as documented) at patient's floor/unit and/or counseling patient: 26 <JIMBO Gomez - Last Filed: 11/26/21 16:03> Progress Note: Quality Stroke Does the patient have a stroke diagnosis?: No <JIMBO Gomez - Last Filed: 11/26/21 16:03> Procedures Date of Service Date of Service: 11/26/21 <JIMBO Gomez - Last Filed: 11/26/21 16:03>
[2021-11-26] MEDS: Torsemide 20 MG TABLET 40 MG PO (20:50)
[2021-11-27] VITALS (11 sets, daily range): BP systolic 103–132; BP diastolic 48–66; PULSE 50–64; RESP 16–20; TEMP 36.3–37; O2SAT 90–96; BMI 22.1
[2021-11-27] MEDS: 0.9 % Sodium Chloride Flush 3 ML SYRINGE IVFLUSH ×4 (01:01→20:05)
[2021-11-27] MEDS: Melatonin 3 MG TABLET 6 MG PO ×2 (03:27→20:09)
[2021-11-27] MEDS: Albuterol/Iprat 2.5/0.5MG 3 ML AMPUL.NEB INHALE ×3 (07:56→20:19)
[2021-11-27] MEDS: Ferrous Sulfate 324 MG TABLET.DR PO (09:26)
[2021-11-27] MEDS: Rivaroxaban 20 MG TABLET PO (09:26)
[2021-11-27] MEDS: Potassium Chloride ER 20 MEQ TAB.ER.PRT 40 MEQ PO (09:26)
[2021-11-27] MEDS: Atorvastatin Calcium 20 MG TABLET PO (09:26)
[2021-11-27] MEDS: Spironolactone 25 MG TABLET PO (09:26)
[2021-11-27] MEDS: Tamsulosin HCL 0.4 MG CAPSULE PO (09:26)
[2021-11-27] MEDS: Torsemide 20 MG TABLET 40 MG PO ×2 (09:27→20:04)
[2021-11-27] MEDS: Finasteride 5 MG TABLET PO (09:27)
[2021-11-27] MEDS: Sacubitril/Valsartan 24/26 1 TAB TABLET PO ×2 (09:33→20:04)
--- NOTE | 2021-11-27 09:38 | P.PNCA_ITS ---
Subjective Subjective Date of Service: 11/27/21 <JIMBO Gomez - Last Filed: 11/27/21 11:02> 11/27/21 <Albert Cabrera MD - Last Filed: 11/27/21 11:16> Principal diagnosis: Biventricular heart failure. <JIMBO Gomez - Last Filed: 11/27/21 11:02> Interval history: Seen at 0910. Today he reports that his breathing seems to be his normal. He has chronic sob from COPD. No cough. Slept with HOB partially elevated. Denies chest pains or palpitations. Leg edema improved. Has not been out of bed yet today. Medtronic Rep in last even for PPM adjustment. <HAMILTON Gomez Last Filed: 11/27/21 11:02> Review of Systems Review of Systems as above <JIMBO Gomez - Last Filed: 11/27/21 11:02> Yes all other systems are reviewed and are negative <JIMBO Gomez - Last Filed: 11/27/21 11:02> Physical Exam Vital Signs: Last Vital Signs Temp 98.2 F 11/27/21 07:30 Pulse 56 11/27/21 07:57 Resp 18 11/27/21 07:57 BP 105/53 L 11/27/21 07:30 Pulse Ox 96 11/27/21 07:30 Oxygen Flow Rate 3 11/20/21 16:15 BMI result Body Mass Index 22.1 <JIMBO Gomez - Last Filed: 11/27/21 11:02> Const General: cooperative, no acute distress, alert and awake <JIMBO Gomez - Last Filed: 11/27/21 11:02> Orientation/consciousness: patient oriented x3 <JIMBO Gomez Last Filed: 11/27/21 11:02> Neck Neck: Yes normal visual inspection and Yes no JVD <JIMBO Gomez Last Filed: 11/27/21 11:02> Resp Effort & Inspection: normal respiratory effort and able to speak in complete sentences <JIMBO Gomez Last Filed: 11/27/21 11:02> Auscultation: clear to auscultation bilaterally, no rales, no rhonchi and no wheezes <JIMBO Gomez - Last Filed: 11/27/21 11:02> Cardio Rate: regular rate <JIMBO Gomez Last Filed: 11/27/21 11:02> Rhythm: regular rhythm <JIMBO Gomez - Last Filed: 11/27/21 11:02> Heart sounds: S1 normal heart sound present and S2 normal heart sound present <HAMILTON GomezC - Last Filed: 11/27/21 11:02> GI Inspection: Yes normal to inspection <JIMBO Gomez Last Filed: 11/27/21 11:02> Neuro General: patient oriented x3 <JIMBO Gomez Last Filed: 11/27/21 11:02> Extrem Other: gauze dressing to lower legs bilaterally. Edema improved. <JIMBO Gomez - Last Filed: 11/27/21 11:02> Objective Labs and Meds Result diagrams: : 11/21/21 07:05 11/26/21 06:03 <HAMILTON GomezC - Last Filed: 11/27/21 11:02> Lab results: Laboratory Results - last 24 hr 11/26/21 11/26/21 10:40 10:44 O2 Saturation 95.0 ABG pH at Pt Temp 7.48 H ABG pCO2 at Pt Temp 30 L ABG pO2 at Pt Temp 76 L ABG HCO3 23 ABG Base Excess (Actual) 1.1 Urine Color YELLOW Urine Appearance CLEAR Urine pH 6.0 Ur Specific [place] 1.010 Urine Protein NEG Urine Glucose (UA) NEG Urine Ketones NEG Urine Blood 1+ H Urine Nitrite NEG Ur Leukocyte Esterase 1+ H Urine RBC 1-4 Urine WBC 1-4 Ur Squamous Epith Cells TRACE Urine Bacteria NONE <JIMBO Gomez Last Filed: 11/27/21 11:02> Progress Note: A&P Assessment and plan (1) Acute exacerbation of CHF (congestive heart failure): Status: Acute <JIMBO Gomez Last Filed: 11/27/21 11:02> Assessment and Plan: Hx of HFpEF, more right HF. Admitted with increased sob, leg edema. Echo showed EF 15-20%. flattened septum in systole and diastole, comments about a mobile structure on AV. Prior echo 02/12/2021 showed EF 65-70%, basal inferior hypokinetic, moderate increase in the RV size, severe biatrial enlargement , moderate TR, moderate to severe pulmonary hypertension. His CMP could be related to high percent of Vpacing. He was diuresed with IV Lasix with negative fluid balance 8185 cc since admission. He has COPD and has chronic sob. He currently reports his breathing is his usual sob. Leg edema much improved since admit. Sat 96% on 3 liters. Nails not cyanotic like yesterday. Notes indicate hx of Reynauds. Her was transition to PO Torsemide 40mg bid yesterday. He was already been started on Entresto this admit. BP on low side, 105/53 this am. Continue Torsemide, Aldactone, Entresto. Continue strict I&O monitoring, daily weights.? Close monitoring of electrolytes and kidney function with electrolyte replacement as warranted.? Ongoing management of COPD as directed by hosp italist.?Increase activity as tolerated. Recommend continue to monitor another day. We will follow if needed. We will arrange for outpt Holter monitor and cardiology follow up. <JIMBO Gomez - Last Filed: 11/27/21 11:02> Hx of HFpEF, more right HF. Admitted with increased sob, leg edema. Echo showed EF 15-20%. flattened septum in systole and diastole, comments about a mobile structure on AV. Prior echo 02/12/2021 showed EF 65-70%, basal inferior hypokinetic, moderate increase in the RV size, severe biatrial enlargement , moderate TR, moderate to severe pulmonary hypertension. His CMP could be related to high percent of Vpacing. He was diuresed with IV Lasix with negative fluid balance 8185 cc since admission. He has COPD and has chronic sob. He currently reports his breathing is his usual sob. Leg edema much improved since admit. Sat 96% on 3 liters. Nails not cyanotic like yesterday. Notes indicate hx of Re ejs. Her was transition to PO Torsemide 40mg bid yesterday. He was already been started on Entresto this admit. BP on low side, 105/53 this am. Continue Torsemide, Aldactone, Entresto. Continue strict I&O monitoring, daily weights.? Close monitoring of electrolytes and kidney function with electrolyte replacement as warranted.? Ongoing management of COPD as directed by hospitalist.?Increase activity as tolerated. Recommend continue to monitor another day. We will follow if needed. We will arrange for outpt Holter monitor and cardiology follow up. Patient seen and examined. Case discussed with Ana Stevens. Heart failure syndrome appears much better control appear his shortness of br eath is at baseline. Continue current diuretic regimen. Continue current neurohormonal modulation with spironolactone as well as Entresto. Heart rate overall on the lower side, will hold off on beta-joseph especially given his lower blood pressure. Follow-up as outpatient. 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 His pacing rate has improved, see below. If he remains with significant persistent LV systolic dysfunction with ongoing pacing may need to upgrade his device to cardiac resynchronization device. This was discussed with him. He is not very enthusiastic about the same. Continue to optimize his pulmonary function. <Albert Cabrera MD - Last Filed: 11/27/21 11:16> (2) Cardiomyopathy: Status: Acute <JIMBO Gomez - Last Filed: 11/27/21 11:02> Assessment and Plan: New CMP identified this admit. Had not been on rate slowing meds as he had issues with bradycardia in past and had PPM placed 03/2021. Tele monitoring this admit shows that he was V pacing at elevated rates, up to 120s. Device setting was changed last evening, to VVI, instead of VVIR, low rate 50. Tele today is showing afib, intermittent V pace, rates 50-60s. Entresto added this admit. No on BB at present due to soft BP. Plan to obtain limited echo in near future to reassess EF. If EF has not improved, then he may require ARTIFICIAL BREEDING DISTRIBUTOR/ CRTD. <JIMBO Gomez - Last Filed: 11/27/21 11:02> (3) COPD (chronic obstructive pulmonary disease): Status: Acute <JIMBO Gomez - Last Filed: 11/27/21 11:02> Assessment and Plan: Chronic. Being managed by hospitalist. <JIMBO Gomez - Last Filed: 11/27/21 11:02> (4) Chronic atrial fibrillation: Status: Acute <JIMBO Gomez - Last Filed: 11/27/21 11:02> Assessment and Plan: Hx of chronic afib. Not on rate slowing meds. 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 On Xarelto for anticoagulation. No bleeding issues reported. <JIMBO Gomez - Last Filed: 11/27/21 11:02> Hx of chronic afib. Not on rate slowing meds. Tele currently shows afib, i ntermittent GLUING MACHINE ADJUSTER, rates 50-60s. On Xarelto for anticoagulation. No bleeding issues reported. Patient with chronic atrial fibrillation on currently Xarelto 20 mg daily. Tolerating well. Rate is adequately controlled at this point time. <Albert Cabrera MD - Last Filed: 11/27/21 11:16> (5) Cardiac pacemaker in situ: Status: Acute <JIMBO Gomez - Last Filed: 11/27/21 11:02> Assessment and Plan: Medtronic Micra, leadless pacemaker placed 03/2021. Setting change yesterday from VVIR to VVI to help reduce the amount of Vpacing. <JIMBO Gomez - Last Filed: 11/27/21 11:02> Medtronic Micra, leadless pacemaker placed 03/2021. Setting change yesterday from VVIR to VVI to help reduce the amount of Vpacing. Pacemaker reprogrammed to VVI with much improved pacing rate at this point time. Still pacing at 50 beats per minute. Will follow up with Holter monitor as outpatient to assess for percentage of ventricular pacing. Will follow with him as outpatient. Patient can be discharged home <Albert Cabrera MD - Last Filed: 11/27/21 11:16> Time Spent With Patient Time: Total time spent is greater than 50% in coordination of care (as documented) at patient's floor/unit and/or counseling patient: 22 <JIMBO Gomez - Last Filed: 11/27/21 11:02> Progress Note: Quality Stroke Does the patient have a stroke diagnosis?: No <JIMBO Gomez - Last Filed: 11/27/21 11:02> Procedures Date of Service Date of Service: 11/27/21 <JIMBO Gomez - Last Filed: 11/27/21 11:02>
--- NOTE | 2021-11-27 11:07 | MHC.CM.PN ---
Male 86 DX HF acute/chronic No discharge today. DP STR via BLS. He has 3 facilities interested: [email or web address], [facility] and [facility]. A clinical update has been sent.
[2021-11-27] MEDS: Acetaminophen 325 MG TABLET 650 MG PO (15:46)
--- NOTE | 2021-11-27 16:22 | P.PNIM_ITS ---
Subjective Subjective Date of Service: 11/27/21 Interval History: Complaining of persistent chronic shortness of breath, symptoms of shortness of breath has improved since admission, denies chest pain, no lightheadedness or dizziness, no other acute events overnight tele monitor shows AFib intermittent V paced with rates improved to 60. 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 CVS regular rate rhythm, Respiratory lungs clear to auscultation, no respiratory distress, no wheeze, no rhonchi. Gastrointestinal abdomen soft, nontender, bowel sounds audible, no no guarding , no rigidity. Extremities no cyanosis, edema improved Neuro nonfocal ,speech clear. Skin lower extremity wounds healing Psych appropriate affect Objective Data Active Medications Acetaminophen (Acetaminophen 325 Mg Tablet) 650 mg PO Q6H PRN PRN Reason: Pain, Mild (Pain Scale 1-3) Last Admin: 11/27/21 15:46 Dose: 650 mg Documented by: DOMINIQUE Albuterol Sulfate (Albuterol Sulfate 90 Mcg 8 Gm Inhaler) 2 puff INHALE Q6H PRN PRN Reason: Wheezing Last Admin: 11/21/21 19:48 Dose: 2 puff Documented by: MENDY Albuterol/Ipratropium (Albuterol/Iprat 2.5/0.5mg 3 Ml Ampul.Neb) 3 ml INHALE RQ6H WHILE AWAKE [facility] Last Admin: 11/27/21 15:36 Dose: 3 ml Documented by: HIRA Atorvastatin Calcium (Atorvastatin Calcium 20 Mg Tablet) 20 mg PO DAILY [facility] Last Admin: 11/27/21 09:26 Dose: 20 mg Documented by: DOMINIQUE Ferrous Sulfate (Ferrous Sulfate 324 Mg Tablet.Dr) 324 mg PO DAILY [facility] Last Admin: 11/27/21 09:26 Dose: 324 mg Documented by: DOMINIQUE Finasteride (Finasteride 5 Mg Tablet) 5 mg PO DAILY [facility] Last Admin: 11/27/21 09:27 Dose: 5 mg Documented by: DOMINIQUE Fluticasone Propionate (Fluticasone Propionate Nasal 16 Gm [place]) 1 spray NOSTRIL-B DAILY [facility] Last Admin: 11/27/21 09:38 Dose: Not Given Documented by: DOMINIQUE Non-Admin Reason: Med Not Available Fluticasone Propionate (Fluticasone Propionate 100 Mcg Blst.W.Dev) 1 puff INHALE RBID [facility] Last Admin: 11/27/21 08:19 Dose: Not Given Documented by: HIRA Non-Admin Reason: Med Not Available Hydromorphone HCl (Hydromorphone Hcl 0.5 Mg/0.5 Ml Syringe) 0.5 mg IVPUSH Q4H PRN; Protocol PRN Reason: Breakthrough Pain Last Admin: 11/26/21 05:02 Dose: 0.5 mg Documented by: LEEANNE Melatonin (Melatonin 3 Mg Tablet) 6 mg PO BEDTIME PRN PRN Reason: Insomnia Last Admin: 11/27/21 03:27 Dose: 6 mg Documented by: GABBY Pharmacy Consult (Consult Rx Perform Med Rec) 1 each MISCELLANE ONCE PRN PRN Reason: Consult order Potassium Chloride (Potassium Chloride Er 20 Meq Tab.Er.Prt) 40 meq PO DAILY [facility] Last Admin: 11/27/21 09:26 Dose: 40 meq Documented by: DOMINIQUE Rivaroxaban (Rivaroxaban 20 Mg Tablet) 20 mg PO DAILY [facility] Last Admin: 11/27/21 09:26 Dose: 20 mg Documented by: DOMINIQUE Sacubitril/Valsartan (Sacubitril/Valsartan 1 Tab Tablet) 1 tab PO BID [facility]; Protocol Last Admin: 11/27/21 09:33 Dose: 1 tab Documented by: DOMINIQUE Senna (Sennosides 8.6 Mg Tablet) 17.2 mg PO BEDTIME PRN PRN Reason: Constipation Last Admin: 11/23/21 22:27 Dose: 17.2 mg Documented by: YOGESH Sodium Chloride (0.9 % Sodium Chloride Flush 3 Ml Syringe) 3 ml IVFLUSH QSHIFT [facility] Last Admin: 11/27/21 15:48 Dose: 3 ml Documented by: DOMINIQUE Sodium Chloride (Sodium Chloride 0.65 % Nasal 44 Ml Sprbtl) 1 spray NOSTRIL-B Q1H PRN PRN Reason: Dryness Last Admin: 11/26/21 10:02 Dose: 1 spray Documented by: LEDY Spironolactone (Spironolactone 25 Mg Tablet) 25 mg PO DAILY [facility]; Protocol Last Admin: 11/27/21 09:26 Dose: 25 mg Documented by: DOMINIQUE Tamsulosin HCl (Tamsulosin Hcl 0.4 Mg Capsule) 0.4 mg PO DAILY [facility] Last Admin: 11/27/21 09:26 Dose: 0.4 mg Documented by: DOMINIQUE Torsemide (Torsemide 20 Mg Tablet) 40 mg PO BID [facility]; Protocol Last Admin: 11/27/21 09:27 Dose: 40 mg Documented by: DOMINIQUE Labs CBC & Chem 7: 11/21/21 07:05 11/26/21 06:03 Microbiology Microbiology Results: Microbiology 11/26/21 Unknown Urine Culture - Final Urine clean catch - Urine cassidy top No growth. Assessment and Plan (1) Acute exacerbation of CHF (congestive heart failure): Status: Acute (2) Hyperlipidemia: Status: Acute (3) HTN (hypertension): Status: Acute (4) Pulmonary hypertension: Status: Acute (5) (HFpEF) heart failure with preserved ejection fraction: Status: Acute (6) CAD (coronary artery disease): Status: Acute (7) Chronic atrial fibrillation: Status: Acute Plan 86-year-old male with a past medical history of hypertension, hyperlipidemia, CAD, CHF, AFib on Xarelto, history of bladder cancer, pulmonary hypertension on home oxygen, Raynaud's phenomena, COPD; presented to the hospital today with a chief complaint of shortness of breath. noted to be in acute CHF.? Admitted for further management. Acute on chronic CHF with low EF Shortness of breath improved seem to be at baseline now Echo 01/2021-> shows? EF of 65-70%, inferior segment hypokinetic, moderately increased RV cavity size, biatrial enlargement, moderate to severe pulmonary hypertension. Repeat echo showed worsening EF 15-20% with severe global hypokinesis, diastolic function is indeterminate, severely decreased right ventricular systolic f unction, moderate left atrial dilatation likely due to rapid heart rate pacemaker interrogated last evening, device setting changed to VVI instead of VVIR heart rate now in 50-60 range (rate response turned off) Status post IV Lasix, Entresto and Aldactone 25 mg added during this hospitalization,iv Lasix replaced by torsemide 40 mg b.i.d. -9L since admission, lower extremity edema improved, stable electrolytes and renal function Hypokalemia due to diuretics resolved Bilateral leg healing ulcer: Continue dressing change Chronic respiratory failure on 3 L of home oxygen, and BiPAP, no respiratory distress/acrocyanosis resolved likely related to Raynaud's disease ABG stable History of chronic AFib: Not on rate control medications, continue rivaroxaban History of hypertension: bp stable, amlodipine discontinued to help with blood pressure while being diuresed History of BPH:? Noted to have significant urinary retention , continue Dumont catheter Continue home Flomax, finasteride , UA negative outpatient follow-up with Urology Dr. Watters History of COPD: No acute exacerbation, On oxygen 3 L , continue on scheduled and as needed DuoNebs , continue home inhalers, CPAP History of coronary artery disease status post pacemaker continue statins, Norvasc on hold as above DVT prophylaxis:on Xarelto Code status: DNR /DNI. Patient will need continued inpatient hospitalization due to acute on chronic congestive heart failure , pacemaker adjusted monitor on telemetry, seen by PT they recommend short-term rehab, to arrange for safe discharge Quality Stroke Does the patient have a stroke diagnosis?: No VTE Prior VTE?: No VTE Risk Level:: Medical - moderate - high VTE Device Contraindication: Treatment Not Indicated VTE Drug Contraindication: N/A - Med Ordered
[2021-11-27] MEDS: Sodium Chloride 0.65 % Nasal 44 ML SPRBTL 1 SPRAY NOSTRIL-B (20:06)
[2021-11-27] MEDS: Fluticasone Propionate 100 MCG BLST.W.DEV 1 PUFF INHALE (20:19)
[2021-11-28] VITALS (9 sets, daily range): BP systolic 92–125; BP diastolic 46–64; PULSE 50–65; RESP 16–19; TEMP 36.2–37.1; O2SAT 89–97; BMI 21.4; BMI 22.1
[2021-11-28] MEDS: Acetaminophen 325 MG TABLET 650 MG PO (03:16)
[2021-11-28] MEDS: Torsemide 20 MG TABLET 40 MG PO (08:39)
[2021-11-28] MEDS: Sacubitril/Valsartan 24/26 1 TAB TABLET PO ×2 (08:39→20:03)
[2021-11-28] MEDS: Ferrous Sulfate 324 MG TABLET.DR PO (08:40)
[2021-11-28] MEDS: Finasteride 5 MG TABLET PO (08:40)
[2021-11-28] MEDS: Tamsulosin HCL 0.4 MG CAPSULE PO (08:40)
[2021-11-28] MEDS: Spironolactone 25 MG TABLET PO (08:40)
[2021-11-28] MEDS: 0.9 % Sodium Chloride Flush 3 ML SYRINGE IVFLUSH ×2 (08:40→20:03)
[2021-11-28] MEDS: Rivaroxaban 20 MG TABLET PO (08:40)
[2021-11-28] MEDS: Atorvastatin Calcium 20 MG TABLET PO (08:40)
[2021-11-28] MEDS: Sodium Chloride 0.65 % Nasal 44 ML SPRBTL 1 SPRAY NOSTRIL-B (08:44)
[2021-11-28] MEDS: Potassium Chloride ER 20 MEQ TAB.ER.PRT 40 MEQ PO (08:45)
[2021-11-28] MEDS: Fluticasone Propionate 100 MCG BLST.W.DEV 1 PUFF INHALE ×2 (08:55→20:15)
[2021-11-28] MEDS: Albuterol/Iprat 2.5/0.5MG 3 ML AMPUL.NEB INHALE (08:55)
--- NOTE | 2021-11-28 12:00 | HO.PM.IMPN ---
Subjective Subjective Date of Service: 11/28/21 Interval History: Feeling better, denies shortness of breath, has baseline mild shortness of breath oxygenation stable, no acute events overnight, denies chest pain, no palpitations, no cough, no nausea, no vomiting. Review of Systems Review of Systems: Yes all other systems are reviewed and are negative Physical Exam Vital Signs: Vital Signs: Last Vital Signs Temp 97.7 F 11/28/21 11:14 Pulse 55 11/28/21 11:14 Resp 16 11/28/21 11:14 BP 99/46 L 11/28/21 11:14 Pulse Ox 95 11/28/21 11:14 Oxygen Flow Rate 3 11/20/21 16:15 BMI result Body Mass Index 21.4 Const: Other: General? resting comfortably in no acute distress, talking in full sentences? Neck? supple no JVD. CVS? regular rate rhythm, Respiratory lungs clear to auscultation, no respiratory distress, no wheeze, no rhonchi. Gastrointestinal abdomen soft, nontender, bowel sounds audible, no no guarding , no rigidity. Extremities no cyanosis, edema resolved Neuro nonfocal ,speech clear. Skin lower extremity superficial ulcers healing Psych appropriate affect Objective Data Active Medications Acetaminophen (Acetaminophen 325 Mg Tablet) 650 mg PO Q6H PRN PRN Reason: Pain, Mild (Pain Scale 1-3) Last Admin: 11/28/21 03:16 Dose: 650 mg Documented by: BISHNU Albuterol Sulfate (Albuterol Sulfate 90 Mcg 8 Gm Inhaler) 2 puff INHALE Q6H PRN PRN Reason: Wheezing Last Admin: 11/21/21 19:48 Dose: 2 puff Documented by: MENDY Albuterol/Ipratropium (Albuterol/Iprat 2.5/0.5mg 3 Ml Ampul.Neb) 3 ml INHALE RQ6H WHILE AWAKE [facility] Last Admin: 11/28/21 08:55 Dose: 3 ml Documented by: YONATAN Atorvastatin Calcium (Atorvastatin Calcium 20 Mg Tablet) 20 mg PO DAILY [facility] Last Admin: 11/28/21 08:40 Dose: 20 mg Documented by: SORIN Ferrous Sulfate (Ferrous Sulfate 324 Mg Tablet.) 324 mg PO DAILY [facility] Last Admin: 11/28/21 08:40 Dose: 324 mg Documented by: SORIN Finasteride (Finasteride 5 Mg Tablet) 5 mg PO DAILY [facility] Last Admin: 11/28/21 08:40 Dose: 5 mg Documented by: SORIN Fluticasone Propionate (Fluticasone Propionate Nasal 16 Gm [place]) 1 spray NOSTRIL-B DAILY [facility] Last Admin: 11/27/21 09:38 Dose: Not Given Documented by: DOMINIQUE Non-Admin Reason: Med Not Available Fluticasone Propionate (Fluticasone Propionate 100 Mcg Blst.W.Dev) 1 puff INHALE RBID [facility] Last Admin: 11/28/21 08:55 Dose: 1 puff Documented by: BRESJOEY Hydromorphone HCl (Hydromorphone Hcl 0.5 Mg/0.5 Ml Syringe) 0.5 mg IVPUSH Q4H PRN; Protocol PRN Reason: Breakthrough Pain Last Admin: 11/26/21 05:02 Dose: 0.5 mg Documented by: LEEANNE Melatonin (Melatonin 3 Mg Tablet) 6 mg PO BEDTIME PRN PRN Reason: Insomnia Last Admin: 11/27/21 20:09 Dose: 6 mg Documented by: BISHNU Pharmacy Consult (Consult Rx Perform Med Rec) 1 each MISCELLANE ONCE PRN PRN Reason: Consult order Potassium Chloride (Potassium Chloride Er 20 Meq Tab.Er.Prt) 40 meq PO DAILY [facility] Last Admin: 11/28/21 08:45 Dose: 40 meq Documented by: SORIN Rivaroxaban (Rivaroxaban 20 Mg Tablet) 20 mg PO DAILY [facility] Last Admin: 11/28/21 08:40 Dose: 20 mg Documented by: SORIN Sacubitril/Valsartan (Sacubitril/Valsartan 1 Tab Tablet) 1 tab PO BID [facility]; Protocol Last Admin: 11/28/21 08:39 Dose: 1 tab Documented by: SORIN Senna (Sennosides 8.6 Mg Tablet) 17.2 mg PO BEDTIME PRN PRN Reason: Constipation Last Admin: 11/23/21 22:27 Dose: 17.2 mg Documented by: NAUMOC Sodium Chloride (0.9 % Sodium Chloride Flush 3 Ml Syringe) 3 ml IVFLUSH QSHIFT [facility] Last Admin: 11/28/21 08:40 Dose: 3 ml Documented by: SORIN Sodium Chloride (Sodium Chloride 0.65 % Nasal 44 Ml Sprbtl) 1 spray NOSTRIL-B Q1H PRN PRN Reason: Dryness Last Admin: 11/28/21 08:44 Dose: 1 spray Documented by: SORIN Spironolactone (Spironolactone 25 Mg Tablet) 25 mg PO DAILY [facility]; Protocol Last Admin: 11/28/21 08:40 Dose: 25 mg Documented by: SORIN Tamsulosin HCl (Tamsulosin Hcl 0.4 Mg Capsule) 0.4 mg PO DAILY [facility] Last Admin: 11/28/21 08:40 Dose: 0.4 mg Documented by: SORIN Torsemide (Torsemide 20 Mg Tablet) 40 mg PO BID [facility]; Protocol Last Admin: 11/28/21 08:39 Dose: 40 mg Documented by: SORIN Labs CBC & Chem 7: 11/21/21 07:05 11/26/21 06:03 Microbiology Microbiology Results: Microbiology 11/22/21 17:27 Blood Culture - Final Blood - Venous No growth after 5 days. 11/22/21 17:27 Blood Culture - Final Blood - Venous No growth after 5 days. 11/26/21 Unknown Urine Culture - Final Urine clean catch - Urine cassidy top No growth. Assessment and Plan (1) Acute exacerbation of CHF (congestive heart failure): Status: Acute (2) Hyperlipidemia: Status: Acute (3) HTN (hypertension): Status: Acute (4) Pulmonary hypertension: Status: Acute (5) (HFpEF) heart failure with preserved ejection fraction: Status: Acute (6) CAD (coronary artery disease): Status: Acute (7) Chronic atrial fibrillation: Status: Acute Plan 86-year-old male with a past medical history of hypertension, hyperlipidemia, CAD, CHF, AFib on Xarelto, history of bladder cancer, pulmonary hypertension on home oxygen, Raynaud's phenomena, COPD; presented to the hospital today with a chief complaint of shortness of breath. noted to be in acute CHF.? Admitted for further management. Acute on chronic CHF with low EF Shortness of breath improved seem to be at baseline now Echo 01/2021-> shows? EF of 65-70%, inferior segment hypokinetic, moderately increased RV cavity size, biatrial enlargement, moderate to severe pulmonary hypertension. Repeat echo showed worsening EF 15-20% with severe global hypokinesis, diastolic function is indeterminate, severely decreased right ventricular systolic function, moderate left atrial dilatation likely due to rapid heart rate pacemaker interrogated last evening, device setting changed to VVI instead of VVIR heart rate now in 50-60 range (rate response turned off) Continue torsemide change dose to 40 08:00 and 20 mg at evening, continue Entresto and Aldactone 25 mg Follow renal function and bnp Hypokalemia due to diuretics resolved Bilateral leg ulcer: healing well. Continue dressing change Chronic respiratory failure on 3 L of home oxygen, and BiPAP, no respiratory distress/acrocyanosis resolved likely related to Raynaud's disease ABG stable History of chronic AFib: Not on rate control medications, continue rivaroxaban History of hypertension: bp stable, cont current medication History of BPH:? Noted to have significant urinary retention , continue Dumont catheter Continue home Flomax, finasteride , UA negative outpatient follow-up with Urology Dr. Watters History of COPD: No acute exacerbation, On oxygen 3 L , continue on scheduled and as needed DuoNebs , continue home inhalers, CPAP History of coronary artery disease status post pacemaker continue no recurrent chest pain. DVT prophylaxis:on Xarelto Code status: DNR /DNI. Patient will need continued inpatient hospitalization due to acute on chronic congestive heart failure , pacemaker adjusted monitor on telemetry, seen by PT they recommend short-term rehab, CM to arrange for safe discharge Quality Stroke Does the patient have a stroke diagnosis?: No VTE Prior VTE?: No VTE Risk Level:: Medical - moderate - high VTE Device Contraindication: Treatment Not Indicated VTE Drug Contraindication: N/A - Med Ordered
--- NOTE | 2021-11-28 12:38 | MHC.CM.PN ---
Addendum entered by Clair Calderón 11/28/21 15:56: Additional referrals have been sent to [place] at family request. [facility] offering a bed. T/W called 3x today requesting a call back. VM left a bed offer received in [place]. The return call just received 4pm. Family requests a referral to [facility]. Referral has been sent. DP STR via BLS tomorrow. Multiple bed offers. Family to make final decision tomorrow AM. Original Note: IMM 11/28/21 Male DX HF Per MD rounds patient is ready to discharge. [facility] [place]. [facility] [place] via BLS.
[2021-11-28 12:40] LABS: COVID-19 Test Negative (Negative); IDNOW Serial# 9DD0AD1C
--- NOTE | 2021-11-28 14:54 | PC.NURSE ---
sandeep tavares dsg changed. silver alginate dsg applied and DSD
[2021-11-28] MEDS: Torsemide 20 MG TABLET PO (20:02)
[2021-11-29 03:28] VITALS: BP 141/60; PULSE 52; RESP 18; TEMP 36.5; O2SAT 92
[2021-11-29 06:00] VITALS: BMI 20.2
[2021-11-29 07:21] LABS: Anion Gap 15 (12-20); Blood Urea Nitrogen 30 mg/dL (9-16); Calcium 8.6 mg/dL (8.4-10.2); Carbon Dioxide 31 mmol/L (22-29); Chloride 97 mmol/L (96-108); Estimated Glomerular Filt Rate > 60; Glucose Random 95 mg/dL (60-115); Potassium 3.5 mmol/L (3.3-5.1); Sodium 139 mmol/L (135-145)
[2021-11-29 07:43] LABS: B Type Natriuretic Peptide 2270 pg/mL (<100)
[2021-11-29 07:48] VITALS: BP 121/55; PULSE 52; RESP 19; TEMP 37.3; O2SAT 92
[2021-11-29] MEDS: Spironolactone 25 MG TABLET 12.5 MG PO (08:26)
[2021-11-29] MEDS: Finasteride 5 MG TABLET PO (08:27)
[2021-11-29] MEDS: Potassium Chloride ER 20 MEQ TAB.ER.PRT 40 MEQ PO (08:27)
[2021-11-29] MEDS: Rivaroxaban 20 MG TABLET PO (08:27)
[2021-11-29] MEDS: Tamsulosin HCL 0.4 MG CAPSULE PO (08:27)
[2021-11-29] MEDS: Torsemide 20 MG TABLET 40 MG PO (08:27)
[2021-11-29] MEDS: Atorvastatin Calcium 20 MG TABLET PO (08:28)
[2021-11-29] MEDS: Sacubitril/Valsartan 24/26 1 TAB TABLET PO (08:28)
[2021-11-29] MEDS: Ferrous Sulfate 324 MG TABLET.DR PO (08:28)
[2021-11-29] MEDS: 0.9 % Sodium Chloride Flush 3 ML SYRINGE IVFLUSH (08:28)
[2021-11-29] MEDS: Fluticasone Propionate Nasal 16 GM SPRAY 1 SPRAY NOSTRIL-B (08:38)
[2021-11-29] MEDS: Fluticasone Propionate 100 MCG BLST.W.DEV 1 PUFF INHALE (08:47)
[2021-11-29 08:49] VITALS: PULSE 58; RESP 20; O2SAT 93
[2021-11-29] MEDS: Acetaminophen 325 MG TABLET 650 MG PO (10:38)
--- NOTE | 2021-11-29 10:55 | PM.DS ---
DS: Providers Provider Date of Service: 11/29/21 Date of admission: 11/20/21 21:30 Primary care physician: Gregory Trimble MD Consults: 11/20/21 21:29 Consult to Cardiology Routine Consulting Provider: Juan Miguel Goldman Reason for consultation: chf DS: Diagnosis Discharge Diagnosis (1) Acute exacerbation of CHF (congestive heart failure): Status: Acute (2) Hyperlipidemia: Status: Acute (3) HTN (hypertension): Status: Acute (4) Pulmonary hypertension: Status: Acute (5) (HFpEF) heart failure with preserved ejection fraction: Status: Acute (6) CAD (coronary artery disease): Status: Acute (7) Chronic atrial fibrillation: Status: Acute DS: Summary Hospital Course Hospital Course: Chief Complaint:? shortness of breath ?86-year-old male with a past medical history of hypertension, hyperlipidemia, CAD, CHF, AFib on Xarelto, history of bladder cancer, pulmonary hypertension on home oxygen, Raynaud's phenomena, COPD; presented to the hospital today with a chief complaint of shortness of breath. ? Patient reports that his the past 2 weeks he has been having shortness of breath which has been gradually worsening; also feels short of breath at rest and with minimal exertion; denies any chest pain or palpitations.? Denies any cough or sputum production.? Reports he has bilateral leg wounds and has been following with the wound clinic and they appear to be healing but noted to have increased leg swelling bilaterally; Reports he has been complaint with his home medications.? Denies any excessive salt intake.? Denies any GI symptoms.? Review of all other systems is negative except mentioned above ER course: Per ER team patient noted to have elevated proBNP; bilateral leg swelling; leg wounds appears to be healing; concern for acute CHF.? Admitted to the hospital for further management.? Patient was given IV Lasix. Hospital course 86-year-old male with a past medical history of hypertension, hyperlipidemia, CAD, CHF, AFib on Xarelto, history of bladder cancer, pulmonary hypertension on home oxygen, Raynaud's phenomena, COPD; presented to the hospital today with a chief complaint of shortness of breath. noted to be in acute CHF.? Admitted for further management. Acute on chronic CHF with history of diastolic dysfunction,Echo 01/2021-> shows? EF of 65-70%, inferior segment hypokinetic, moderately increased RV cavity size, biatrial enlargement, moderate to severe pulmonary hypertension, and diastolic dysfunction, repeat echo 11/22/21 showed worsening EF 15-20% with severe global hypokinesis, diastolic function is indeterminate, severely decreased right ventricular systolic function, moderate left atrial dilatation patient diagnosed to have acute cardiomyopathy likely due to rapid heart rate, pacemaker interrogated , device setting changed to VVI instead of VVIR heart rate now in 50-60 range (rate response turned off) Patient treated aggressively with IV Lasix, Entresto and Aldactone 25 mg , with good response patient shortness of breath has significantly improved, now he has chronic mild shortness of with underlying history of COPD, Patient has chronic respiratory failure recently 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 and 20 mg at p.m. he has been recommended to have close outpatient follow-up with Cardiology for repeat echocardiogram and monitoring of pacemaker. Hypokalemia due to diuretics resolved Bilateral leg ulcers healing well, Continue dressing change Chronic respiratory failure on 3 L of home oxygen, and BiPAP, no respiratory distress noted. History of chronic AFib:? Not on rate control medications, continue rivaroxaban History of hypertension: bp stable, amlodipine discontinued since patient placed on Entresto and Aldactone. History of BPH:? Noted to have significant urinary retention , therefore Dumont catheter placed, Continue home Flomax, finasteride , UA negative outpatient follow-up with Urology Dr. Watters History of COPD:? No acute exacerbation, On oxygen 3 L , continue on scheduled and as needed DuoNebs , continue home inhalers, BiPAP History of coronary artery disease status post pacemaker continue outpatient follow-up with Cardiology. Time Spent with Patient Time attestation: Total time spent providing and/or coordinating discharge services: Discharge coordination time: Greater than 30 minutes Quality: Safe Use of Opioids Does Pt have an Active Cancer Diagnosis on the Problem List?: No Quality: Stroke Does the patient have a stroke diagnosis?: No Physical Exam Vital Signs: Vital Signs: Last Vital Signs Temp 97.3 F 11/28/21 07:21 Pulse 54 11/28/21 09:59 Resp 18 11/28/21 09:00 BP 115/55 L 11/28/21 07:21 Pulse Ox 94 11/28/21 07:21 Oxygen Flow Rate 3 11/20/21 16:15 BMI result Body Mass Index 21.4 Const: Other: General? resting comfortably in no acute distress, talking in full sentences? Neck? supple, no JVD. CVS? regular rate rhythm, Respiratory lungs clear to auscultation, no respiratory distress, no wheeze, no rhonchi. Gastrointestinal abdomen soft, nontender, bowel sounds audible,no guarding , no rigidity. Extremities no cyanosis, edema resolved Neuro nonfocal ,speech clear. Skin lower extremity superficial ulcers. Psych appropriate affect Discharge Plan Discharge Patient Disposition: Xfer SNF Discharge Diagnosis: Acute on chronic congestive heart failure low EF Hypokalemia Chronic respiratory failure Referrals: [facility] [Outside] - 1 Week Gregory Trimble MD [Primary Care Provider] - 1 Week Discharge Medications: New Entresto 24-26 mg Tablet 1 tab PO BID Qty: 60 0RF Protocol: Hold for SBP< HOLD for SBP < : 90 spironolactone [Aldactone] 25 mg tablet 12.5 mg PO DAILY Qty: 30 0RF torsemide 40 mg tablet 40 mg PO QAM Qty: 30 0RF Rx Instructions: Take torsemide 40 mg at a.m. and take torsemide 20 mg in afternoon torsemide 20 mg tablet 20 mg PO DAILY Qty: 30 0RF Rx Instructions: Take torsemide 20 mg in afternoon Continued Stiolto Respimat 2.5-2.5 mcg/actuation mist 2 puff inhalation Q24H 30 Days Qty: 4 5RF finasteride 5 mg tablet 5 mg PO DAILY Qty: 90 3RF tamsulosin 0.4 mg capsule 0.4 mg PO DAILY 30 Days Qty: 90 3RF ferrous sulfate 325 mg (65 mg iron) Tablet 325 mg PO DAILY 0RF mometasone 220 mcg/ actuation (120) Aerosol Powdr Breath Activated 2 inh INHALATION DAILY 0RF fluticasone propionate 50 mcg/actuation spray,suspension 1 spray intranasal DAILY 0RF lorazepam 0.5 mg tablet 0.5 mg PO DAILY PRN (Reason: anxiety) 0RF albuterol sulfate 90 mcg/actuation HFA aerosol inhaler 2 puff inhalation Q6H PRN (Reason: Wheezing) 0RF atorvastatin 20 mg tablet 20 mg PO DAILY 0RF Xarelto 20 mg tablet 20 mg PO DAILY 0RF Rx Instructions: must administer with evening meal Changed potassium chloride 10 mEq capsule, extended release 20 meq PO DAILY Qty: 0 0RF Discontinued amlodipine 5 mg tablet 5 mg PO DAILY Qty: 90 3RF furosemide 40 mg tablet 40 mg PO DAILY 0RF Discharge Orders: Discharge Order (Routine); Ordered 11/29/21 Ordered By: Alesia Bustillos Diet: low fat, low cholesterol and low salt diet Activity on Discharge: As tolerated Stand Alone Forms: Patient Portal Discharge page Care Plan Goals: Continue medications as prescribed, continue home oxygen and close outpatient cardiology and Pulmonary follow-up Continue Xarelto, return to check with worsening shortness of breath, lightheadedness, dizziness or chest pain Health Concerns: Hx of HFpEF, admitted with Acute congestive heart failure, echo showed EF 15-20% pacemaker interrogated and adjusted Take torsemide, Entresto as prescribed, follow low salt diet and close outpatient follow-up with Cardiology Plan of Treatment: Outpatient follow-up with pulmonology and resident programs assistant Dr. Cabrera Assessment: As per discharge summary
--- NOTE | 2021-11-29 11:06 | MHC.INPTTRAN ---
Is weak. OOB with 1 assist. transfers to recliner. Has 02 at 3L via N/C. gets SOB with activity. Has own CPAP for at [facility]. Takes meds whole with water. Eunice diet. Has pappas cath for retention. Failed trial voiding, so was reinserted on the . draining yellow urine. Had BM yesterday. Has venous status ulcers on sandeep chins. Chaned QOD was changed yesterday. Silver alginate applied. Has chronic back pain. tyl given at 1040 this am. thanks.
[2021-11-29 11:31] VITALS: BP 116/59; PULSE 51; RESP 19; TEMP 36.3; O2SAT 96
--- NOTE | 2021-11-29 11:35 | MHC.CM.PN ---
savannah jamison aware that pt is dcd today at 1:30 [address] [facility]
== END 2021-11-29 14:26 | disposition skilled nursing facility (03) | DRG 291 ==
LOC: HO.ED 18:44 → HO.EDOVER 21:35 → HO.IMC 11-21 18:33
PROVIDERS: Admitting Provider Hospitalist; Emergency Provider Emergency Medicine; PCP Internal Medicine; Visit Provider Hospitalist
DX: I11.0 Hypertensive heart disease with heart failure (principal); I50.33 Acute on chronic diastolic (congestive) heart failure; I48.20 Chronic atrial fibrillation, unspecified; J96.11 Chronic respiratory failure with hypoxia; I25.10 Atherosclerotic heart disease of native coronary artery without angina pectoris; Z95.0 Presence of cardiac pacemaker; E78.5 Hyperlipidemia, unspecified; I73.00 Raynaud's syndrome without gangrene; I27.20 Pulmonary hypertension, unspecified; J44.9 Chronic obstructive pulmonary disease, unspecified; Z66 Do not resuscitate; Z99.81 Dependence on supplemental oxygen; E87.6 Hypokalemia; I42.9 Cardiomyopathy, unspecified; N40.0 Benign prostatic hyperplasia without lower urinary tract symptoms; Z20.822 Contact with and (suspected) exposure to COVID-19; Z85.51 Personal history of malignant neoplasm of bladder; Z95.5 Presence of coronary angioplasty implant and graft; Z87.891 Personal history of nicotine dependence; Z79.51 Long term (current) use of inhaled steroids; Z79.01 Long term (current) use of anticoagulants; Z79.899 Other long term (current) drug therapy
CPT/HCPCS: 36415; 36600; 71045; 80048; 80076; 81001; 82803; 83605; 83735; 83880; 84484; 85025; 85610; 87040; 87086; 87635; 93005; 93306; 94640; 96374; 97110; 97162; 99285; C1758; J1170; J1940

== ENCOUNTER 2022-01-13 09:34 | Emergency (ER) | payer MEDICARE, OTHER, SELFPAY ==
--- NOTE | ~2022-01-13 | XR_ITS ---
EXAMINATION: XR RIBS, LEFT CLINICAL INFORMATION: Left-sided rib pain status post fall. COMPARISON: 11/20/2021 chest radiographs. TECHNIQUE: 3 views of the left ribs were obtained along with a PA view of the chest. FINDINGS: Lungs are clear. No consolidation, pneumothorax, or pleural effusion. The cardiomediastinal silhouette and pulmonary vasculature are normal. Deformity seen laterally at the level the left 10th rib. The remainder the ribs appear intact. The soft tissues are unremarkable. XR/XR ribs LT min 3V w CXR1V IMPRESSION: Deformity laterally at the level the left 10th rib is of indeterminate age. An acute fracture cannot be excluded.
--- NOTE | ~2022-01-13 | CT_ITS ---
EXAMINATION: CT HEAD WITHOUT CONTRAST CLINICAL INFORMATION: Status post fall, on Xarelto COMPARISON: None TECHNIQUE: Contiguous axial imaging was performed from the skull base to vertex without intravenous administration of contrast. Coronal and sagittal reformatted images were obtained. This CT examination was performed using dose optimization techniques as appropriate, variously including the following: *Automated exposure control *Adjustment of mA and/or kV according to patient size (this includes techniques or standardized protocols for targeted exams where dose is matched to indication/reason for exam; i.e. extremities or head) *Use of iterative reconstruction technique DLP: 762.61 mGy-cm FINDINGS: There is mild widening of the cortical sulci and associated ventriculomegaly. Mild periventricular microvascular changes are seen. The lateral ventricles are symmetrical. The third and fourth ventricles are in their normal midline position. The basilar and prepontine cisterns are unremarkable. There is no acute intra or extracerebral abnormality. There is no mass effect or midline shift. Sections through the bony calvarium are unremarkable. The orbits are intact. The paranasal sinuses are clear. The mastoid air cells are clear. CT/CT head/brain wo con IMPRESSION: No acute intracranial pathology.
--- NOTE | ~2022-01-13 | CT_ITS ---
EXAMINATION: CT CERVICAL SPINE WITHOUT CONTRAST CLINICAL INFORMATION: Fall COMPARISON: None TECHNIQUE: Multidetector CT imaging of the cervical spine was performed without the use of intravenous contrast. Coronal and sagittal reformats are reviewed. This CT examination was performed using dose optimization techniques as appropriate, variously including the following: *Automated exposure control *Adjustment of mA and/or kV according to patient size (this includes techniques or standardized protocols for targeted exams where dose is matched to indication/reason for exam; i.e. extremities or head) *Use of iterative reconstruction technique DLP: 1097 mGy-cm FINDINGS: No acute fracture or traumatic malalignment. Loss of disc space height associated endplate osteophytes present from C3 through C7. There is accompanying uncovertebral arthrosis and facet arthropathy throughout the cervical spine. 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 There is a 2.3 cm nodule in the right thyroid gland, previously biopsied in August 2016. Imaged lung apices demonstrate severe emphysema. CT/CT cervical spine wo con IMPRESSION: No acute fracture or traumatic malalignment. Cervical spondylosis as described. Emphysema.
[2022-01-13 09:40] VITALS: BP 128/40; BP 130/52; PULSE 50; PULSE 51; RESP 18; TEMP 36.4; O2SAT 99; BMI 18.5
--- NOTE | 2022-01-13 10:27 | ECG_ITS ---
Test Reason : fall Blood Pressure : / mmHG Vent. Rate : 050 BPM Atrial Rate : 192 BPM P-R Int : 000 ms QRS Dur : 190 ms QT Int : 558 ms P-R-T Axes : 000 115 -26 degrees QTc Int : 508 ms Ventricular-paced rhythm Abnormal ECG When compared with ECG of 20-NOV-2021 16:13, Vent. rate has decreased BY 35 BPM Referred By: Mirian Manzano Electronically Signed By:Juan Miguel Goldman
--- NOTE | 2022-01-13 10:28 | ED_ITS ---
HPI - Fall General Chief Complaint: Fall Stated Complaint: MULTIPLE FALLS,L SIDE & HIP PAIN,HOME O2 3LPM Time Seen by Provider: 01/13/22 09:50 Source: patient Mode of arrival: EMS Limitations: no limitations History of Present Illness HPI Narrative: Patient presents emergency department for evaluation after a fall. Patient reports that she had a fall yesterday and today. Reportedly due to weakness in his right leg secondary to sciatica, denies pain to the leg or lumbar spine pain. He uses a walker at baseline, but both times that he has fall and he did not have his walker with him. He states yesterday he fell into the bathtub striking his left chest against the tub in is now having pain in this area. He is on Xarelto, does not believe that he struck his head or had loss of consciousness, both falls were unwitnessed. Denies dizziness, lightheadedness, headache, vision changes, neck pain, palpitations, shortness of breath, difficulty breathing, nausea, vomiting, abdominal pain. Denies fevers, chills, bowel dysfunction, numbness or tingling of the perineum or bilateral legs. Denies any recent surgical procedures, any known immune compromising conditions, personal history of cancer, or IV drug usage. Related Data Home Medications Medication Instructions Recorded Confirmed albuterol sulfate 90 mcg/actuation 2 puff inhalation Q6H PRN Wheezing 06/15/20 11/20/21 aerosol inhaler atorvastatin 20 mg tablet 20 mg PO DAILY 06/15/20 11/20/21 rivaroxaban 20 mg tablet (Xarelto) 20 mg PO DAILY 07/24/20 11/20/21 ferrous sulfate 325 mg (65 mg 325 mg PO DAILY 11/20/21 11/20/21 iron) tablet fluticasone propionate 50 1 spray intranasal DAILY 11/20/21 11/20/21 mcg/actuation nasal spray,suspension lorazepam 0.5 mg tablet 0.5 mg PO DAILY PRN anxiety 11/20/21 11/20/21 mometasone 220 mcg/actuation(120 2 inh inhalation DAILY 11/20/21 11/20/21 doses)breath activated powder inhaler Previous Rx's Medication Instructions Recorded tiotropium 2.5 mcg-olodaterol 2.5 2 puff inhalation Q24H 30 days #4 08/08/20 mcg/actuation mist for inhalation grams (Stiolto Respimat) finasteride 5 mg tablet 5 mg PO DAILY #90 tabs 08/05/21 tamsulosin 0.4 mg capsule 0.4 mg PO DAILY 30 days #90 caps 08/05/21 potassium chloride 10 mEq 20 meq PO DAILY #0 caps 11/28/21 capsule,extended release sacubitril 24 mg-valsartan 26 mg 1 tab PO BID #60 tabs 11/28/21 tablet (Entresto) spironolactone 25 mg tablet 12.5 mg PO DAILY #30 tabs 11/28/21 (Aldactone) torsemide 20 mg tablet 20 mg PO DAILY #30 tabs 11/28/21 torsemide 40 mg tablet 40 mg PO QAM #30 tabs 11/28/21 fluticasone 250 mcg-salmeterol 50 1 inh inhalation BID copd 30 days 12/02/21 mcg/dose blistr powdr for #60 ea inhalation (Wixela Inhub) ciprofloxacin HCl 500 mg tablet 500 mg PO Q12H 7 days #14 tabs 01/13/22 (Cipro) tramadol 50 mg tablet 50 mg PO BEDTIME PRN pain #7 tabs 01/13/22 Allergies Allergy/AdvReac Type Severity Reaction Status Date / Time No Known Allergies Allergy Verified 11/11/21 15:13 [No Known Allergies*] Review of Systems Review of Systems: Constitutional: No weight loss. No fever. No chills. Positive weakness. No fatigue. Eye: No swelling. No redness. ENT: No sore throat. No rhinorrhea. No nasal congestion. No difficulty swallowing. Skin: No rash. No itching. Cardiovascular: No chest pain. No chest pressure. No palpitations. No pedal edema. Respiratory: No shortness of breath. No cough. No sputum production. Gastrointestinal: No anorexia. No nausea. No vomiting. No diarrhea. No abdominal pain. No blood in stool. Genitourinary: No burning micturition. No urinary frequency. No incontinence. Neurologic: No headache. No dizziness. No pre-syncope/ syncope. No unilateral weakness. No numbness. No tingling. No change in bowel or bladder control. Musculoskeletal: No muscle pain. No back pain. No joint pain. No stiffness. Hematologic: No bleeding. No bruising. Lymphatics: No enlarged lymph nodes. Psychiatric:No depression. No anxiety. Endocrine: No polyuria. No polydipsia. Yes all other systems are reviewed and are negative [facility] Past Medical History Attestation statement: The following information was validated with the patient. Source: old records reviewed Medical History (HFpEF) heart failure with preserved ejection fraction Anxiety Bradycardia CAD (coronary artery disease) Cardiac pacemaker in situ Chronic atrial fibrillation COPD (chronic obstructive pulmonary disease) COPD (chronic obstructive pulmonary disease) HTN (hypertension) Hyperlipidemia Malignant neoplasm of lateral wall of urinary bladder Pulmonary hypertension Raynaud disease Respiratory failure Surgical History H/O transurethral resection of prostate History of appendectomy History of back surgery History of placement of leadless cardiac pacemaker History of prostate surgery Stented coronary artery Family History Family History Father Lung cancer Cancer Mother No problems noted. Social History Social History Household Members: Spouse Housing: House Are you a primary pediatric care coordinator to a significant other at home: No Do you presently have visiting nurse or other home services: Yes (Visiting nurse [facility], PT [facility], Wound center on Thu) Alcohol intake: never Patient Tobacco Use Status: Former Tobacco user Quit Date: age 65 Second Hand Smoke Exposure: No Advance Directives: Yes Advance Directives on File: Yes Advance Directives Date on File: 09/17/21 service: Yes Current occupational status: retired Physical Exam Vital Signs: Vital Signs: Last Vital Signs Temp 97.8 F 01/13/22 15:24 Pulse 50 01/13/22 15:24 Resp 16 01/13/22 15:24 BP 134/43 L 01/13/22 15:24 Pulse Ox 98 01/13/22 15:24 O2 Del Method 01/13/22 15:24 O2 Flow Rate 3 01/13/22 15:24 Oxygen Flow Rate 3 01/13/22 09:40 BMI result Body Mass Index 18.5 Vital signs have been reviewed as normal and appeared to be correct. Blood pressure normal.? Heart rate normal.? Respiration rate normal. Temperature normal.? Oxygen saturation normal. Appearance: Alert.?Oriented to person, place and time. No acute distress.?Normal affect. Head: Normocephalic atraumatic Eyes: Pupils equal, round and reactive to light.?2mm bilaterally ENT: Pharynx normal.??TMs clear bilaterally. No hemotympanum. Neck: Normal inspection.? Neck supple.??No midline cervical spine tenderness, step-offs, deformities CVS: Heart sounds normal. Normal heart rate and rhythm.? Pulses normal.?? Respiratory: No respiratory distress.? Lung sounds clear to auscultation bilaterally. Chest wall tenderness on the left, no crepitus. No obvious deformities. Abdomen: Soft and non-tender. Normoactive bowel sounds. No pulsatile mass.?? Skin: Skin warm and dry.? Normal skin color.? ? Extremities: No lower extremity edema.? Neuro: Moves all extremities spontaneously. Sensation intact bilaterally. CN II-XII intact. No focal neuro deficits. Ambulates with normal steady gait. Course Course Course Narrative: Patient is an 86-year-old male with a past medical history of heart failure with most recent EF 15-20%, anxiety, coronary artery disease, pacemaker, atrial fibrillation, COPD, hypertension, hyperlipidemia, bladder cancer and BPH with chronic Dumont catheter in place, pulmonary hypertension, Raynaud's who presents emergency department today for evaluation of left lateral chest pain status post 2 falls recently. Patient reports baseline weakness due to sciatica weakness in the right lower extremity, no new neurological findings. Falls have occurred at times her patient does not have his walker with him. Will obtain CBC to evaluate for leukocytosis/ anemia, CMP to evaluate for abnormal electrolytes /abnormal renal function/ abnormal hepatic/biliary function, EKG and troponin to evaluate for ischemia/ACS and urinalysis to exclude alternative causes for weakness/falls. Chest x-ray to evaluate for consolidation/ infiltrate/ mass/ pulmonary congestion/ fracture. He provides a vague history surrounding 1 of the falls, given he is on Xarelto, will obtain CT of the head and cervical spine to exclude ICH/SAH/fracture/subluxation. Reevaluation(s) Reevaluation #1: CMP reveals elevated BUN of 51, creatinine 0.92. Troponin 43.4, EKG with ventricular paced rhythm, bradycardic with rate at 50, no acute ischemic f indings, will obtain delta troponin for further evaluation. Chest x-ray reveals a deformity laterally at the left 10th rib, given recent fall and acute pain, suspect acute fracture, no palpable instability, patient is not hypoxic or tachypneic, patient will require incentive spirometer, Tylenol for pain management during the day, and a prescription for tramadol to be used at night. Time: 12:23 Reevaluation #2: Troponin has actually decreased when compared to prior, unlikely that increased weakness/fall the secondary to ACS. Urinalysis consistent with urinary tract infection, will treat with Cipro. Discussed all findings with patient, offered to be evaluated by physical therapy to determine whether short-term rehab would be required, he declines at this time. Reporting that he was just recently at a SNF for short-term rehab, is currently receiving physical therapy in the home. He would like to be discharged home at this time. We discussed the use of incentive spirometer, Tylenol, and tramadol for rib fracture. Advised outpatient follow-up with his primary care provider within 1-3 days. Discussed worrisome signs and symptoms that he should return back to the emergency department for. All questions were answered Time: 14:22 MDM - Fall Medical Records Attestation: I reviewed the patient's medical records. Lab Data Attestation: I reviewed the patient's lab results. Result diagrams: 01/13/22 10:45 01/13/22 10:45 Labs: Lab Results 01/13/22 01/13/22 01/13/22 Range/Units 10:45 10:45 10:45 WBC 8.1 (4.8-10.8) X10*3/uL RBC 3.37 L (4.60-5.80) X10*6/uL Hgb 10.5 L (14.0-18.0) g/dl Hct 32.9 L (42.0-52.0) % MCV 97.6 (80.0-98.0) fL MCH 31.2 (27.0-33.0) pg MCHC 31.9 (31.0-36.0) g/dl RDW 17.2 H (11.0-16.0) % Plt Count 244 D (160-400) X10*3/uL MPV 9.6 (9.4-12.4) fL Immature Gran % (Auto) 0.4 (0.0-0.4) % Neut % (Auto) 82.7 H (45-73) % Lymph % (Auto) 4.6 L (20-40) % Webster % (Auto) 11.2 H (2-11) % Eos % (Auto) 0.7 (0-4) % Baso % (Auto) 0.4 (0-2) % Lymph # (Auto) 0.4 L (1.2-4.9) X10*3/uL Webster # (Auto) 0.9 (0.1-1.2) X10*3/uL Eos # (Auto) 0.1 (0.0-0.4) X10*3/uL Baso # (Auto) 0.0 (0.0-0.2) X10*3/uL Abs Immat Gran (auto) 0.03 (0.00-0.03) X10*3/uL Absolute Neuts (auto) 6.7 (2.0-8.3) x10*3/uL Absolute Nucleated RBC 0.000 (0.0-0.012) X10*3/uL Nucleated RBC % (auto) 0.0 (0.0-0.2) /100WBC Sodium 140 (135-145) mmol/L Potassium 4.2 (3.3-5.1) mmol/L Chloride 104 (96-108) mmol/L Carbon Dioxide 27 (22-29) mmol/L Anion Gap 13 (12-20) BUN 51 H D (9-16) mg/dL Creatinine 0.92 (0.5-1.4) mg/dL Estim Creat Clear Calc 51.0 Estimated GFR > 60 Random Glucose 100 (60-115) mg/dL Calcium 8.2 L (8.4-10.2) mg/dL Magnesium 2.7 H (1.6-2.6) mg/dL Total Bilirubin 1.0 (0.0-1.0) mg/dL AST 19 (5-37) U/L ALT 9 (0-40) U/L Alkaline Phosphatase 121 H (39-117) U/L Troponin I High Sens 43.4 H D (<3.5-35.0) ng/L B-Natriuretic Peptide 878 H (<100) pg/mL Total Protein 7.0 (6.5-8.0) g/dL Albumin 3.7 (3.5-5.0) g/dL Urine Color Urine Appearance Urine pH (5.0-8.0) Ur Specific [place] (1.005-1.025) Urine Protein (NEG-TRACE) MG/DL Urine Glucose (UA) (NEG) MG/DL Urine Ketones (NEG) MG/DL Urine Blood (NEG) Urine Nitrite (NEG) Ur Leukocyte Esterase (NEG) Urine RBC (0) /HPF Urine WBC (0-4) /HPF Urine WBC Clumps Ur Squamous Epith Cells /LPF Amorphous Sediment /LPF Urine Bacteria /LPF Urine Mucus /LPF COVID-19 (DENICE) (Negative) COVID-19 Clin Com 01/13/22 01/13/22 01/13/22 Range/Units 10:45 13:53 15:14 WBC (4.8-10.8) X10*3/uL RBC (4.60-5.80) X10*6/uL Hgb (14.0-18.0) g/dl Hct (42.0-52.0) % MCV (80.0-98.0) fL MCH (27.0-33.0) pg MCHC (31.0-36.0) g/dl RDW (11.0-16.0) % Plt Count (160-400) X10*3/uL MPV (9.4-12.4) fL Immature Gran % (Auto) (0.0-0.4) % Neut % (Auto) (45-73) % Lymph % (Auto) (20-40) % Webster % (Auto) (2-11) % Eos % (Auto) (0-4) % Baso % (Auto) (0-2) % Lymph # (Auto) (1.2-4.9) X10*3/uL Webster # (Auto) (0.1-1.2) X10*3/uL Eos # (Auto) (0.0-0.4) X10*3/uL Baso # (Auto) (0.0-0.2) X10*3/uL Abs Immat Gran (auto) (0.00-0.03) X10*3/uL Absolute Neuts (auto) (2.0-8.3) x10*3/uL Absolute Nucleated RBC (0.0-0.012) X10*3/uL Nucleated RBC % (auto) (0.0-0.2) /100WBC Sodium (135-145) mmol/L Potassium (3.3-5.1) mmol/L Chloride (96-108) mmol/L Carbon Dioxide (22-29) mmol/L Anion Gap (12-20) BUN (9-16) mg/dL Creatinine (0.5-1.4) mg/dL Estim Creat Clear Calc Estimated GFR Random Glucose (60-115) mg/dL Calcium (8.4-10.2) mg/dL Magnesium (1.6-2.6) mg/dL Total Bilirubin (0.0-1.0) mg/dL AST (5-37) U/L ALT (0-40) U/L Alkaline Phosphatase (39-117) U/L Troponin I High Sens 38.8 H (<3.5-35.0) ng/L B-Natriuretic Peptide (<100) pg/mL Total Protein (6.5-8.0) g/dL Albumin (3.5-5.0) g/dL Urine Color YELLOW Urine Appearance TURBID Urine pH 6.0 (5.0-8.0) Ur Specific [place] 1.015 (1.005-1.025) Urine Protein 2+ H (NEG-TRACE) MG/DL Urine Glucose (UA) NEG (NEG) MG/DL Urine Ketones NEG (NEG) MG/DL Urine Blood 3+ H (NEG) Urine Nitrite POS H (NEG) Ur Leukocyte Esterase 3+ H (NEG) Urine RBC 0-2 (0) /HPF Urine WBC TNTC H (0-4) /HPF Urine WBC Clumps NOTED Ur Squamous Epith Cells NONE /LPF Amorphous Sediment 3+ /LPF Urine Bacteria 2+ /LPF Urine Mucus TRACE /LPF COVID-19 (DENICE) Negative (Negative) COVID-19 Clin Com See Note Imaging Data Chest x-ray: Radiologist's impression: XR/XR ribs LT min 3V w CXR1V IMPRESSION: Deformity laterally at the level the left 10th rib is of indeterminate age. An acute fracture cannot be excluded. CT scan - head: Radiologist's impression: CT/CT head/brain wo con IMPRESSION: No acute intracranial pathology. CT/CT cervical spine wo con IMPRESSION: No acute fracture or traumatic malalignment. Cervical spondylosis as described. Emphysema. ? ECG Data Attestation: I personally reviewed and interpreted this ECG as follows: ECG interpretation date: 01/13/22 Prior ECG tracings: not available for review Interpretation: Rate: Ventricular paced rhythm Rhythm:? 50 Normal QRS complex.?? ST T wave :??No ST elevation, no ST depression qTC: 508 prior studies:? October 2021 The study has been interpreted contemporaneously by me. Discharge Plan Discharge Clinical Impression: Fall, Fracture of rib, Urinary tract infection Patient Disposition: Home, Self-Care Instructions: Urinary Incontinence (ED), Urinary Tract Infection in Men (ED), Rib Fracture (ED), Fall Prevention for Older Adults (ED) Additional Instructions: As we discussed, we found today that you have a fracture of your left 10th rib. You have been given incentive spirometer and instructed on appropriate usage. You can take Tylenol 500 mg, 2 tablets (1,000mg) every 4-6 hours as needed for pain, but not to exceed 3 doses daily (3,000mg). You have been given a prescription for tramadol to be used at bedtime for pain if necessary, this may make you drowsy, should only be used at bedtime, take with caution. Your urine shows that you have an infection, had been given an antibiotic to take for this, please complete this entire course. If you develop fevers, shaking chills, abdominal pain, nausea, vomiting you should be re-evaluated. You were offered to be evaluated by physical therapy while in the emergency department to determine whether their recommendation would be for short-term rehab, however you declined given that you are ready have physical therapy at home. Feel free to return to the emergency department any new or worsening symptoms or concerns. Follow-up with your primary care provider within 3 days. ? Prescriptions: New tramadol 50 mg tablet 50 mg PO BEDTIME PRN (Reason: pain) Qty: 7 0RF ciprofloxacin HCl [Cipro] 500 mg tablet 500 mg PO Q12H 7 Days Qty: 14 0RF No Action Stiolto Respimat 2.5-2.5 mcg/actuation mist 2 puff inhalation Q24H 30 Days Qty: 4 5RF finasteride 5 mg tablet 5 mg PO DAILY Qty: 90 3RF tamsulosin 0.4 mg capsule 0.4 mg PO DAILY 30 Days Qty: 90 3RF fluticasone propion-salmeterol [Wixela Inhub] 250-50 mcg/dose blister with device 1 inh inhalation BID 30 Days Qty: 60 5RF ferrous sulfate 325 mg (65 mg iron) Tablet 325 mg PO DAILY mometasone 220 mcg/ actuation (120) Aerosol Powdr Breath Activated 2 inh INHALATION DAILY fluticasone propionate 50 mcg/actuation spray,suspension 1 spray intranasal DAILY lorazepam 0.5 mg tablet 0.5 mg PO DAILY PRN (Reason: anxiety) Entresto 24-26 mg Tablet 1 tab PO BID Qty: 60 0RF Protocol: Hold for SBP< HOLD for SBP < : 90 spironolactone [Aldactone] 25 mg tablet 12.5 mg PO DAILY Qty: 30 0RF torsemide 40 mg tablet 40 mg PO QAM Qty: 30 0RF Rx Instructions: Take torsemide 40 mg at a.m. and take torsemide 20 mg in afternoon torsemide 20 mg tablet 20 mg PO DAILY Qty: 30 0RF Rx Instructions: Take torsemide 20 mg in afternoon potassium chloride 10 mEq capsule, extended release 20 meq PO DAILY Qty: 0 0RF albuterol sulfate 90 mcg/actuation HFA aerosol inhaler 2 puff inhalation Q6H PRN (Reason: Wheezing) atorvastatin 20 mg tablet 20 mg PO DAILY Xarelto 20 mg tablet 20 mg PO DAILY Rx Instructions: must administer with evening meal Referrals: Gregory Trimble MD [Primary Care Provider] - 3 days
[2022-01-13 10:53] LABS: MANUAL DIFF FLAG NO
[2022-01-13 10:54] LABS: Basophils Percent Auto 0.4 % (0-2); Eosinophils Absolute Auto 0.1 X10*3/uL (0.0-0.4); Eosinophils Percent Auto 0.7 % (0-4); Hematocrit 32.9 % (42.0-52.0); Hemoglobin 10.5 g/dl (14.0-18.0); Imm Gran Abs Auto 0.03 X10*3/uL (0.00-0.03); Imm Gran Pct Auto 0.4 % (0.0-0.4); Lymphocytes Absolute Auto 0.4 X10*3/uL (1.2-4.9); Lymphocytes Percent Auto 4.6 % (20-40); Mean Corpuscular HGB Conc 31.9 g/dl (31.0-36.0); Mean Corpuscular Hemoglobin 31.2 pg (27.0-33.0); Mean Corpuscular Volume 97.6 fL (80.0-98.0); Mean Platelet Volume 9.6 fL (9.4-12.4); Monocytes Absolute Auto 0.9 X10*3/uL (0.1-1.2); Monocytes Percent Auto 11.2 % (2-11); Neutrophils Absolute Auto 6.7 x10*3/uL (2.0-8.3); Neutrophils Percent Auto 82.7 % (45-73); Platelet Count 244 X10*3/uL (160-400); Red Blood Count 3.37 X10*6/uL (4.60-5.80); Red Cell Distribution Width 17.2 % (11.0-16.0); White Blood Count 8.1 X10*3/uL (4.8-10.8)
[2022-01-13 11:14] LABS: Troponin-I High Sensitivity 43.4 ng/L (<3.5-35.0)
[2022-01-13 11:16] LABS: COVID-19 Test Negative (Negative)
[2022-01-13 11:22] LABS: Alanine Aminotransferase 9 U/L (0-40); Albumin Level 3.7 g/dL (3.5-5.0); Alkaline Phosphatase 121 U/L (39-117); Anion Gap 13 (12-20); Aspartate Amino Transferase 19 U/L (5-37); Blood Urea Nitrogen 51 mg/dL (9-16); Calcium 8.2 mg/dL (8.4-10.2); Carbon Dioxide 27 mmol/L (22-29); Chloride 104 mmol/L (96-108); Estimated Glomerular Filt Rate > 60; Glucose Random 100 mg/dL (60-115); Magnesium 2.7 mg/dL (1.6-2.6); Potassium 4.2 mmol/L (3.3-5.1); Sodium 140 mmol/L (135-145)
[2022-01-13] MEDS: Acetaminophen 325 MG TABLET 975 MG PO (11:40)
[2022-01-13 12:59] LABS: B Type Natriuretic Peptide 878 pg/mL (<100)
[2022-01-13 13:49] VITALS: BP 121/43; PULSE 48; RESP 18; TEMP 36.4; O2SAT 100
[2022-01-13 14:17] LABS: Troponin-I High Sensitivity 38.8 ng/L (<3.5-35.0)
--- NOTE | 2022-01-13 14:54 | PC.NURSE ---
RIGHT LOWER LEG DRESSING CHANGED. MODERATE AMOUNT OF DRAINAGE NOTED ON REMOVED DRESSING.
[2022-01-13 15:24] VITALS: BP 134/43; PULSE 50; RESP 16; TEMP 36.6; O2SAT 98
[2022-01-13 15:34] LABS: Appearance Urine TURBID; Color Urine YELLOW; Leukocyte Esterase Urine 3+ (NEG); Nitrite Urine POS (NEG)
[2022-01-13 15:35] LABS: Glucose Urine UA NEG (NEG); Urine Ketones NEG (NEG); Urine Protein 2+ MG/DL (NEG-TRACE)
[2022-01-13 15:36] LABS: Specific Gravity - Urine 1.015 (1.005-1.025); UACC Culture Trigger YES; Urine Blood 3+ (NEG)
[2022-01-13 15:39] LABS: Amorphous Sediment Urine 3+ /LPF; Bacteria Urine 2+ /LPF; Mucus Urine TRACE /LPF; RBC Urine 0-2 /HPF (0); WBC Clumps Urine NOTED; WBC Urine TNTC /HPF (0-4)
== END 2022-01-13 18:18 | disposition home or self-care (01) ==
PROVIDERS: Nurse Practitioner Family; Emergency Provider Student in an Organized Health Care Education/Training Program; PCP Internal Medicine
DX: S22.32XA Fracture of one rib, left side, initial encounter for closed fracture (principal); N39.0 Urinary tract infection, site not specified; R07.81 Pleurodynia; M54.42 Lumbago with sciatica, left side; R51.9 Headache, unspecified; M54.2 Cervicalgia; W18.2XXA Fall in (into) shower or empty bathtub, initial encounter; Y93.9 Activity, unspecified; Y92.002 Bathroom of unspecified non-institutional (private) residence as the place of occurrence of the external cause; Y99.9 Unspecified external cause status; Z20.822 Contact with and (suspected) exposure to COVID-19; Z79.899 Other long term (current) drug therapy; Z87.891 Personal history of nicotine dependence
CPT/HCPCS: 36415; 70450; 71101; 72125; 80053; 81001; 83735; 83880; 84484; 85025; 87086; 87635; 93005; 99284

== ENCOUNTER 2022-01-18 20:24 | Emergency (ER) | payer MEDICARE, OTHER, SELFPAY ==
[2022-01-18 20:35] VITALS: BP 151/58; BP 158/64; TEMP 36.2; O2SAT 95; O2SAT 96; BMI 18.6
--- NOTE | 2022-01-18 20:53 | ED_ITS ---
HPI - Male Genitourinary General Chief complaint: Urogenital-Male Stated complaint: General pain Time Seen by Provider: 01/18/22 20:52 Source: patient and EMS Mode of arrival: EMS Limitations: no limitations History of Present Illness HPI Narrative: 86-year-old male with a history of bladder cancer and BPH, had Dumont catheter placed for the last 2 weeks, patient was watching TV pulled on in a catheter been having severe pain in the penis and the tip of the urethra, blood in the urine. Patient had history of AFib on Xarelto for anticoagulation, patient also had a history of appendectomy. Related Data Home Medications Medication Instructions Recorded Confirmed albuterol sulfate 90 mcg/actuation 2 puff inhalation Q6H PRN Wheezing 06/15/20 11/20/21 aerosol inhaler atorvastatin 20 mg tablet 20 mg PO DAILY 06/15/20 11/20/21 rivaroxaban 20 mg tablet (Xarelto) 20 mg PO DAILY 07/24/20 11/20/21 ferrous sulfate 325 mg (65 mg 325 mg PO DAILY 11/20/21 11/20/21 iron) tablet fluticasone propionate 50 1 spray intranasal DAILY 11/20/21 11/20/21 mcg/actuation nasal spray,suspension lorazepam 0.5 mg tablet 0.5 mg PO DAILY PRN anxiety 11/20/21 11/20/21 mometasone 220 mcg/actuation(120 2 inh inhalation DAILY 11/20/21 11/20/21 doses)breath activated powder inhaler Previous Rx's Medication Instructions Recorded tiotropium 2.5 mcg-olodaterol 2.5 2 puff inhalation Q24H 30 days #4 08/08/20 mcg/actuation mist for inhalation grams (Stiolto Respimat) finasteride 5 mg tablet 5 mg PO DAILY #90 tabs 08/05/21 tamsulosin 0.4 mg capsule 0.4 mg PO DAILY 30 days #90 caps 08/05/21 potassium chloride 10 mEq 20 meq PO DAILY #0 caps 11/28/21 capsule,extended release sacubitril 24 mg-valsartan 26 mg 1 tab PO BID #60 tabs 11/28/21 tablet (Entresto) spironolactone 25 mg tablet 12.5 mg PO DAILY #30 tabs 11/28/21 (Aldactone) torsemide 20 mg tablet 20 mg PO DAILY #30 tabs 11/28/21 torsemide 40 mg tablet 40 mg PO QAM #30 tabs 11/28/21 fluticasone 250 mcg-salmeterol 50 1 inh inhalation BID copd 30 days 12/02/21 mcg/dose blistr powdr for #60 ea inhalation (Wixela Inhub) ciprofloxacin HCl 500 mg tablet 500 mg PO Q12H 7 days #14 tabs 01/13/22 (Cipro) tramadol 50 mg tablet 50 mg PO BEDTIME PRN pain #7 tabs 01/13/22 Allergies Allergy/AdvReac Type Severity Reaction Status Date / Time No Known Allergies Allergy Verified 11/11/21 15:13 [No Known Allergies*] Review of Systems Review of Systems: All other systems are reviewed and are negative Constitutional: Reports as per HPI and Reports no additional constitutional complaints Eyes: Reports as per HPI and Reports no additional eye complaints Reports system reviewed and no additional complaints, except as documented Cardiovascular: Reports as per HPI and Reports no additional cardiovascular complaints Respiratory: Reports as per HPI and Reports no additional respiratory complaints Gastrointestinal: Reports as per HPI and Reports no additional gastrointestinal complaints Genitourinary: Reports no additional female genitourinary complaints Musculoskeletal: Reports no additional musculoskeletal complaints Skin/Breast: Reports system reviewed and no additional complaints, except as docu Psychiatric: Reports no additional psychiatric complaints Endocrine: Reports no additional endocrine complaints Hematologic/Lymphatic: Reports no additional hematologic/lymphatic complaints Allergic/Immunologic: Reports no additional allergic/immunologic complaints Reports system reviewed and no additional complaints, except as documented and Reports Abnormal speech present [facility] Past Medical History Medical History (HFpEF) heart failure with preserved ejection fraction Anxiety Bradycardia CAD (coronary artery disease) Cardiac pacemaker in situ Chronic atrial fibrillation COPD (chronic obstructive pulmonary disease) COPD (chronic obstructive pulmonary disease) HTN (hypertension) Hyperlipidemia Malignant neoplasm of lateral wall of urinary bladder Pulmonary hypertension Raynaud disease Respiratory failure Surgical History H/O transurethral resection of prostate History of appendectomy History of back surgery History of placement of leadless cardiac pacemaker History of prostate surgery Stented coronary artery Family History Family History Father Lung cancer Cancer Mother No problems noted. Social History Social History Household Members: Spouse Housing: House Are you a primary healthcare management to a significant other at home: No Do you presently have visiting nurse or other home services: Yes (Visiting nurse [employer], [facility], Wound center on Thu) Alcohol intake: never Patient Tobacco Use Status: Former Tobacco user Quit Date: age 65 Second Hand Smoke Exposure: No Advance Directives: Yes Advance Directives on File: Yes Advance Directives Date on File: 09/17/21 service: Yes Current occupational status: retired Physical Exam Vital Signs: Vital Signs: Last Vital Signs Temp 97.1 F 01/18/22 20:35 BP 158/64 H 01/18/22 20:35 Pulse Ox 96 01/18/22 20:35 O2 Del Method 01/18/22 20:35 Oxygen Flow Rate 3 01/18/22 20:35 BMI result Body Mass Index 18.6 Vital signs have been reviewed as appeared to be correct. Blood pressure norm al. Heart rate normal. Respiration rate normal. Temperature normal. Oxygen saturation normal. Appearance: Alert. Oriented X3. No acute distress. Head: Normal external exam. Normocephalic. Atraumatic. No Brady signs noted. No raccoon eyes noted Eyes: PERRLA. EOMI. Conjunctiva and sclera normal. Eyelids normal. ENT: TM's Normal. Pharynx normal. Uvula midline. Moist mucous membranes. No trismus noted. No drooling noted. No muffled voice noted. Neck: Normal inspection. Neck supple. FROM. No adenopathy. Thyroid Normal. No meningeal signs. No neck mass noted. CVS: Normal heart rate and rhythm. Heart sound normal. No murmurs noted. Pulses normal throughout. Respiratory: No respiratory distress. Painless inspiration. Breath sounds normal. No wheezes/rales/rhonchi noted. Chest nontender. No accessory muscle usage noted or decreased air movement noted. Abdomen: Soft and nontender. Bowel sounds normal in all 4 quadrants. No distention noted. No organomegaly noted. No visible injury noted. exam: Circumcised, redness and tenderness at the tip of the urethral meatus no apparent laceration, blood on the meatus was no blood clots. Back: No CVA tenderness. Full range of motion noted. Skin: Skin warm and dry. Normal skin color. Normal skin turgor. No rashes/lesions/lacerations noted. Extremities: No lower extremity edema. Extremities exhibit normal range of motion. Extremities nontender. Neuro: Oriented X 3. Cranial nerve exam: II-XII are grossly intact No motor deficit. No sensory deficit. Reflexes normal. Course Course Course Narrative: 86-year-old male history of bladder cancer and BPH with urinary retention and malfunction Dumont catheter, patient arrived here with severe penile pain and suprapubic distension old Dumont was discontinued and new Dumont was placed by MD, patient drained about 1600 cc of clear urine (initially was bloody pink urine then cleared) patient is taking Cipro prophylactically prescribed by his urologist Dr. Watters, patient has an appointment with Dr. Watters in 4 days, Patient has no active bleeding in the urine, feels better after Dumont drainage will do leg bag teaching and discharge home to keep his appointment with urologist. Reevaluation(s) Reevaluation #1: When patient about to discharge patient felt nauseous likely as a side effect from Dilaudid that was given earlier, patient is able to tolerate saltine and julio kaylynn, able to tolerate p.o. intake improved nausea, no abdominal pain or tenderness. Time: 00:18 Discharge Plan Discharge Clinical Impression: Complication, blocked Dumont catheter Patient Disposition: Home, Self-Care Instructions: Dumotn Catheter Placement and Care (ED) Prescriptions: No Action Stiolto Respimat 2.5-2.5 mcg/actuation mist 2 puff inhalation Q24H 30 Days Qty: 4 5RF finasteride 5 mg tablet 5 mg PO DAILY Qty: 90 3RF tamsulosin 0.4 mg capsule 0.4 mg PO DAILY 30 Days Qty: 90 3RF fluticasone propion-salmeterol [Wixela Inhub] 250-50 mcg/dose blister with device 1 inh inhalation BID 30 Days Qty: 60 5RF ferrous sulfate 325 mg (65 mg iron) Tablet 325 mg PO DAILY mometasone 220 mcg/ actuation (120) Aerosol Powdr Breath Activated 2 inh INHALATION DAILY fluticasone propionate 50 mcg/actuation spray,suspension 1 spray intranasal DAILY lorazepam 0.5 mg tablet 0.5 mg PO DAILY PRN (Reason: anxiety) Entresto 24-26 mg Tablet 1 tab PO BID Qty: 60 0RF Protocol: Hold for SBP< HOLD for SBP < : 90 spironolactone [Aldactone] 25 mg tablet 12.5 mg PO DAILY Qty: 30 0RF torsemide 40 mg tablet 40 mg PO QAM Qty: 30 0RF Rx Instructions: Take torsemide 40 mg at a.m. and take torsemide 20 mg in afternoon torsemide 20 mg tablet 20 mg PO DAILY Qty: 30 0RF Rx Instructions: Take torsemide 20 mg in afternoon potassium chloride 10 mEq capsule, extended release 20 meq PO DAILY Qty: 0 0RF tramadol 50 mg tablet 50 mg PO BEDTIME PRN (Reason: pain) Qty: 7 0RF ciprofloxacin HCl [Cipro] 500 mg tablet 500 mg PO Q12H 7 Days Qty: 14 0RF albuterol sulfate 90 mcg/actuation HFA aerosol inhaler 2 puff inhalation Q6H PRN (Reason: Wheezing) atorvastatin 20 mg tablet 20 mg PO DAILY Xarelto 20 mg tablet 20 mg PO DAILY Rx Instructions: must administer with evening meal Referrals: Murray Watters MD [Physician] - Interventions: ED Discharge Assessment Last Done: 01/18/22 23:07
[2022-01-18] MEDS: oxyCODONE HCl Immed Release 5 MG TABLET PO (21:08)
[2022-01-18] MEDS: HYDROmorphone HCl 2 MG/ML VIAL IVPUSH (21:59)
[2022-01-18] MEDS: Lidocaine HCl 2 % Urojet 10 ML JEL.PF.APP TOPICAL (22:27)
[2022-01-18] MEDS: Ondansetron ODT 4 MG TAB.RAPDIS TRANSLINGU (23:49)
== END 2022-01-19 00:53 | disposition home or self-care (01) ==
PROVIDERS: Emergency Provider Emergency Medicine
DX: T83.098A Other mechanical complication of other urinary catheter, initial encounter (principal); Y73.8 Miscellaneous gastroenterology and urology devices associated with adverse incidents, not elsewhere classified; Y92.009 Unspecified place in unspecified non-institutional (private) residence as the place of occurrence of the external cause; I48.91 Unspecified atrial fibrillation; I11.0 Hypertensive heart disease with heart failure; I50.30 Unspecified diastolic (congestive) heart failure; E78.5 Hyperlipidemia, unspecified; Z95.0 Presence of cardiac pacemaker; Z79.01 Long term (current) use of anticoagulants; Z79.02 Long term (current) use of antithrombotics/antiplatelets; Z79.899 Other long term (current) drug therapy; Z46.6 Encounter for fitting and adjustment of urinary device; Z96.0 Presence of urogenital implants
CPT/HCPCS: 51702; 96374; 99283; 99284; J1170

== ENCOUNTER 2022-01-23 10:09 | Outpatient (REF) | payer MEDICARE, OTHER, SELFPAY ==
[2022-01-23 16:48] LABS: Urine Cytology See Pathology rpt
== END 2022-01-23 10:10 | disposition home or self-care (01) ==
LOC: HO.LAB 10:09
PROVIDERS: Visit Provider Urology
DX: C67.9 Malignant neoplasm of bladder, unspecified (principal); N40.1 Benign prostatic hyperplasia with lower urinary tract symptoms; N13.8 Other obstructive and reflux uropathy
CPT/HCPCS: 51798; 52000; 88112; 99212

== ENCOUNTER → 2022-05-15 13:04 | Outpatient (BNVA) | payer MEDICARE, OTHER, SELFPAY | PROVIDERS: PCP Internal Medicine; Visit Provider Urology | DX: N40.1 Benign prostatic hyperplasia with lower urinary tract symptoms (principal); N13.8 Other obstructive and reflux uropathy; R33.9 Retention of urine, unspecified; C67.9 Malignant neoplasm of bladder, unspecified | CPT/HCPCS: 51798; 99212 ==

== ENCOUNTER → 2022-05-29 13:07 | Outpatient (BNVA) | payer MEDICARE, OTHER, SELFPAY | PROVIDERS: PCP Internal Medicine; Visit Provider Internal Medicine | DX: J44.9 Chronic obstructive pulmonary disease, unspecified (principal); J96.90 Respiratory failure, unspecified, unspecified whether with hypoxia or hypercapnia; F41.9 Anxiety disorder, unspecified; I73.00 Raynaud's syndrome without gangrene | CPT/HCPCS: 99212 ==

== ENCOUNTER → 2022-06-09 11:18 | Outpatient (BNVA) | payer MEDICARE, OTHER, SELFPAY | PROVIDERS: PCP Internal Medicine; Referring Provider Internal Medicine; Visit Provider Internal Medicine Cardiovascular Disease | DX: I50.9 Heart failure, unspecified (principal); I42.9 Cardiomyopathy, unspecified; I48.20 Chronic atrial fibrillation, unspecified; I25.10 Atherosclerotic heart disease of native coronary artery without angina pectoris; Z79.01 Long term (current) use of anticoagulants; Z79.899 Other long term (current) drug therapy; Z45.018 Encounter for adjustment and management of other part of cardiac pacemaker | CPT/HCPCS: 99212 ==

== ENCOUNTER → 2022-06-13 14:36 | Outpatient (REF) | payer MEDICARE, OTHER, SELFPAY ==
--- NOTE | 2022-06-13 14:40 | CA_ITS ---
Transthoracic Echocardiogram Patient (Last, First, Middle): Duke Felton W Gender: Male Date of : 1935 Age: 86 Procedure Date: 06/13/2022 Procedure Type: Transthoracic Echocardiogram Location: OP Height: 185.42 cm Weight: 68.49 kg BSA: 1.91 m2 Heart Rate: bpm BP: 140 / 60 mmHg Flocculator Operator: VH/TO Referring MD: Albert Cabrera MD Symptoms: I42.9 - Cardiomyopathy, unspecified Study Quality: Adequate ECG Rhythm: Undetermined Conclusions: - The left ventricular systolic function is mildly decreased. The calculated ejection fraction is 52% by biplane method. Findings Left Ventricle Normal left ventricular cavity size. The left ventricular systolic function is mildly decreased. The calculated ejection fraction is 52% by biplane method. There is mild global hypokinesis. There is mild septal asymmetric hypertrophy. Venous The inferior vena cava is dilated and collapses greater than 50% with inspiration. Prior Study Comparison Changes noted compared to prior study dated: 11/22/2021. Improved LVEF. Measurements 2D Linear Measurements IVSd: 1.14 0.6-0.9/0.6-1.0 cm LVIDd: 5.34 3.9-5.3/4.2-5.9 cm LVIDd Index: 2.80 2.4-3.2/2.2-3.1 cm/m2 LVIDs: 3.83 2.0-3.6 cm LVPWd: 0.99 0.7-1.1 cm LA Diam: 5.10 2.7-3.8/3.0-4.0 cm LAIDs Index: 2.67 1.5-2.3 cm/m2 LV Mass: 275.14 67-162/88-224 g LV Mass Index: 144.05 43-95/49-115 g/m2 LVOT Diam: 2.20 3.0+(-)1.3 cm 2D Systolic Function EF 4C: 50.30 >55% EF 2C: 53.30 >55% EF BiP: 51.80 >55% LVOT LVOT Pk Alvaro: 0.59 LVOT Mn Alvaro: 0.41 LVOT VTI: 0.15 LVOT Pk Grad: 1.00 LVOT Mn Grad: 1.00 LVOT Diam: 2.20 LVOT Area: 3.80 Tricuspid Valve RA Press: 8.00 Updated in Other Vendor System with Status of Final Marlon Thornton MD electronically signed on 06/14/2022 1:41:09 PM with status of Final
== END ==
LOC: HO.CARD 14:36
PROVIDERS: PCP Internal Medicine; Visit Provider Internal Medicine Cardiovascular Disease
DX: I42.9 Cardiomyopathy, unspecified (principal)
CPT/HCPCS: 93308

== ENCOUNTER 2022-07-08 10:49 | Outpatient (REF) | payer MEDICARE, OTHER, SELFPAY ==
[2022-07-08 10:53] LABS: MANUAL DIFF FLAG NO
[2022-07-08 11:01] LABS: Appearance Urine Clear; Color Urine Yellow; Glucose Urine UA Negative (Negative); Leukocyte Esterase Urine Moderate (2+) (Negative); Nitrite Urine Negative (Negative); UMIC TRIGGER UACC YES; Urine Blood Negative (Negative); Urine Ketones Negative (Negative); Urine Protein Negative (Neg-Trace)
[2022-07-08 11:03] LABS: Basophils Absolute Auto 0.1 X10*3/uL (0.0-0.2); Basophils Percent Auto 0.9 % (0-2); Eosinophils Absolute Auto 0.4 X10*3/uL (0.0-0.4); Eosinophils Percent Auto 6.5 % (0-4); Hematocrit 40.3 % (42.0-52.0); Imm Gran Abs Auto 0.02 X10*3/uL (0.00-0.03); Imm Gran Pct Auto 0.4 % (0.0-0.4); Lymphocytes Absolute Auto 0.7 X10*3/uL (1.2-4.9); Lymphocytes Percent Auto 13.5 % (20-40); Mean Corpuscular HGB Conc 31.8 g/dl (31.0-36.0); Mean Corpuscular Hemoglobin 31.5 pg (27.0-33.0); Mean Corpuscular Volume 99.3 fL (80.0-98.0); Mean Platelet Volume 10.1 fL (9.4-12.4); Monocytes Absolute Auto 0.6 X10*3/uL (0.1-1.2); Monocytes Percent Auto 10.6 % (2-11); Neutrophils Absolute Auto 3.7 x10*3/uL (2.0-8.3); Neutrophils Percent Auto 68.1 % (45-73); Platelet Count 251 X10*3/uL (160-400); Red Blood Count 4.06 X10*6/uL (4.60-5.80); Red Cell Distribution Width 14.2 % (11.0-16.0); White Blood Count 5.4 X10*3/uL (4.8-10.8)
[2022-07-08 11:22] LABS: Hemoglobin 12.8 g/dl (14.0-18.0)
[2022-07-08 11:30] LABS: RBC Urine 0-2 /HPF (0-2); UACC Culture Trigger YES
[2022-07-08 11:31] LABS: Squamous Epithelial Cell Urine 0-2 /HPF (0-2)
[2022-07-08 11:32] LABS: Alanine Aminotransferase 10 U/L (0-40); Albumin Level 4.2 g/dL (3.5-5.0); Alkaline Phosphatase 79 U/L (39-117); Anion Gap 14 (12-20); Aspartate Amino Transferase 23 U/L (5-37); Blood Urea Nitrogen 38 mg/dL (9-16); Calcium 9.2 mg/dL (8.4-10.2); Carbon Dioxide 24 mmol/L (22-29); Chloride 105 mmol/L (96-108); Cholesterol 116 mg/dL; Estimated Glomerular Filt Rate > 60; Glucose Fasting 118 mg/dL (60-99); HDL Cholesterol 50 mg/dL; LDL Cholesterol Calculated 46 mg/dl; Potassium 3.6 mmol/L (3.3-5.1); Sodium 139 mmol/L (135-145); Total Protein 7.8 g/dL (6.5-8.0); Triglycerides 100 mg/dL
[2022-07-08 11:33] LABS: Bacteria Urine None Seen (None Seen); Hyaline Casts Urine 0-2 /LPF (0-2); WBC Clumps Urine Present
[2022-07-08 11:37] LABS: PSA,Total (Free>4and<10) 0.46 ng/mL (0.00-4.00); TSH reflex Free T4 4.79 uIU/mL (0.32-4.0)
[2022-07-08 12:09] LABS: Free T4 (Free Thyroxine) 0.84 ng/dL (0.71-1.85)
[2022-07-08 14:33] LABS: Folate 16.4 ng/mL (> or = 4.0); Vitamin B12 339 pg/mL (200-900)
== END 2022-07-08 10:50 | disposition home or self-care (01) ==
LOC: HO.LNP 10:49
PROVIDERS: Visit Provider Internal Medicine
DX: Z12.5 Encounter for screening for malignant neoplasm of prostate (principal); R97.20 Elevated prostate specific antigen [PSA]; E04.1 Nontoxic single thyroid nodule; I11.0 Hypertensive heart disease with heart failure; I50.21 Acute systolic (congestive) heart failure; E53.8 Deficiency of other specified B group vitamins
CPT/HCPCS: 80053; 80061; 81001; 82607; 82746; 84153; 84439; 84443; 85025; 87086

== ENCOUNTER 2022-07-10 13:09 | Outpatient (REF) | payer MEDICARE, OTHER, SELFPAY ==
[2022-07-10 17:27] LABS: Urine Cytology See Pathology rpt
== END 2022-07-10 13:10 | disposition home or self-care (01) ==
LOC: HO.LAB 13:09
PROVIDERS: PCP Internal Medicine; Visit Provider Urology
DX: C67.9 Malignant neoplasm of bladder, unspecified (principal); R33.9 Retention of urine, unspecified
CPT/HCPCS: 51798; 88112; 99212

== ENCOUNTER → 2022-09-30 14:01 | Outpatient (BNVA) | payer OTHER, SELFPAY | PROVIDERS: PCP Internal Medicine; Visit Provider Internal Medicine | DX: J44.9 Chronic obstructive pulmonary disease, unspecified (principal); J96.90 Respiratory failure, unspecified, unspecified whether with hypoxia or hypercapnia | CPT/HCPCS: 99212 ==

== ENCOUNTER 2022-10-31 13:50 | Outpatient (REF) | payer MEDICARE, OTHER, SELFPAY ==
[2022-10-31 17:01] LABS: Urine Cytology See Pathology rpt
== END 2022-10-31 13:51 | disposition home or self-care (01) ==
LOC: HO.LAB 13:50
PROVIDERS: PCP Internal Medicine; Visit Provider Urology
DX: C67.9 Malignant neoplasm of bladder, unspecified (principal); N40.1 Benign prostatic hyperplasia with lower urinary tract symptoms; R33.8 Other retention of urine; N13.8 Other obstructive and reflux uropathy; N31.9 Neuromuscular dysfunction of bladder, unspecified; Z79.899 Other long term (current) drug therapy
CPT/HCPCS: 52000; 88112; 99212

== ENCOUNTER 2022-12-08 13:20 | Outpatient (REF) | payer MEDICARE, OTHER, SELFPAY ==
[2022-12-08 14:44] LABS: Hemoglobin 11.8 g/dl (14.0-18.0); Mean Corpuscular HGB Conc 31.9 g/dl (31.0-36.0); Mean Corpuscular Hemoglobin 30.9 pg (27.0-33.0); Mean Corpuscular Volume 96.9 fL (80.0-98.0); Mean Platelet Volume 9.8 fL (9.4-12.4); Platelet Count 214 X10*3/uL (160-400); Red Blood Count 3.82 X10*6/uL (4.60-5.80); Red Cell Distribution Width 14.1 % (11.0-16.0); White Blood Count 5.6 X10*3/uL (4.8-10.8)
[2022-12-08 15:02] LABS: Anion Gap 12 (12-20); Blood Urea Nitrogen 36 mg/dL (9-16); Calcium 9.1 mg/dL (8.4-10.2); Carbon Dioxide 28 mmol/L (22-29); Chloride 106 mmol/L (96-108); Estimated Glomerular Filt Rate > 60; Glucose Random 88 mg/dL (60-115); Potassium 4.2 mmol/L (3.3-5.1); Sodium 142 mmol/L (135-145)
== END 2022-12-08 13:21 | disposition home or self-care (01) ==
LOC: HO.LAB 13:20
PROVIDERS: PCP Internal Medicine; Referring Provider Internal Medicine; Visit Provider Internal Medicine Cardiovascular Disease
DX: I25.10 Atherosclerotic heart disease of native coronary artery without angina pectoris (principal); I48.20 Chronic atrial fibrillation, unspecified; I50.9 Heart failure, unspecified; Z95.0 Presence of cardiac pacemaker
CPT/HCPCS: 36415; 80048; 85027; 93005; 99212

== ENCOUNTER 2023-01-15 12:06 | Outpatient (REF) | payer MEDICARE, OTHER, SELFPAY ==
[2023-01-15 14:00] LABS: Alanine Aminotransferase 13 U/L (0-40); Alkaline Phosphatase 70 U/L (39-117); Aspartate Amino Transferase 25 U/L (5-37); Bilirubin Direct 0.4 mg/dL (0.0-0.5); Bilirubin Total 0.8 mg/dL (0.0-1.0); Total Protein 7.5 g/dL (6.5-8.0)
[2023-01-15 20:26] LABS: Cholesterol 103 mg/dL; HDL Cholesterol 48 mg/dL; LDL Cholesterol Calculated 40 mg/dl; Triglycerides 75 mg/dL
[2023-01-15 20:27] LABS: Reflex LDLD? No
== END 2023-01-15 12:07 | disposition home or self-care (01) ==
LOC: HO.LNP 12:06
PROVIDERS: Visit Provider Internal Medicine
DX: E78.00 Pure hypercholesterolemia, unspecified (principal)
CPT/HCPCS: 80061; 80076

== ENCOUNTER 2023-02-03 13:26 | Outpatient (AMB) | payer MEDICARE, OTHER, SELFPAY ==
[2023-02-03 13:34] VITALS: BP 122/60; PULSE 60; O2SAT 96; BMI 20.6
--- NOTE | 2023-02-03 13:34 | A.OFFVIS_ITS ---
Intake Vital Signs 02/03/23 13:34 Height 6 ft 1 in Weight 156 lb BMI 20.6 BP 122/60 Blood Pressure Location Lt brachial Position Sitting Pulse 60 Pulse Source Pulse Oximeter Pulse Oximetry (%) 96 Oxygen Delivery Method Room Air Intake Visit Reasons: COPD Intake Note: pt is here for follow up and states he is using the bi-pap at night, oxygen when at home, but he prefers the bi-pap ,does he still need the oxygen, and also using incentive spirometer. Extrusion Manager Required: No Allergies No Known Allergies [No Known Allergies*] Allergy (Verified 02/03/23 13:59) Medication List - Last Reconciled 02/03/23 by Dawn Vila MD albuterol sulfate 90 mcg/actuation 2 puffs inhalation Q6H PRN atorvastatin 20 mg PO DAILY bethanechol chloride 100 mg PO BID ferrous sulfate 325 mg PO DAILY finasteride 5 mg PO DAILY fluticasone propion-salmeterol 250-50 mcg/dose (Wixela Inhub) 1 inh inhalation BID 30 days fluticasone propionate 50 mcg/actuation 1 spray intranasal DAILY lorazepam 0.5 mg PO DAILY PRN potassium chloride ER 20 mEq (2 x 10 mEq) PO DAILY rivaroxaban (Xarelto) 20 mg PO DAILY sacubitril-valsartan 24-26 mg (Entresto) 1 tab See Protocol PO BID tamsulosin 0.4 mg PO DAILY 30 days tiotropium-olodaterol 2.5-2.5 mcg/actuation (Stiolto Respimat) 2 puffs inhalation Q24H 30 days torsemide 20 mg PO TID Do you need a note to return to daycare/school/sports/work: No HPI COPD HPI Details ADAMS IS A 87 YEARS OLD GENTLEMAN VERY PLEASANT, COMING AFTER 4 MONTHS FOR FOLLOW-UP. ADAMS DOES HAVE ADVANCED COPD, IN ADDITION TO HIS OTHER COMORBIDITIES INCLUDING, PERIPHERAL VASCULAR DISEASE,, BPH, CORONARY ARTERY DISEASE, RESPIRATORY FAILURE. HE CLAIMS THAT HE IS FEELING BETTER THAN BEFORE. HE CLAIMS THAT HIS BREATHING IS MUCH BETTER. HE CAN WALK AROUND IN THE HOUSE AND ALSO 1 OR 2 BLOCKS OUTDOORS, .WITHOUT MUCH SHORTNESS OF BREATH FOR HIS RESPIRATORY FAILURE IN THE PAST WE HAD PUT HIM ON BIPAP, BUT HE DID NOT LIKE IT, AND KEPT ON RETURNING. SO HE WAS PRESCRIBED OXYGEN SUPPLEMENT TO USE AT NIGHT. AND P.R.N. DURING THE DAYTIME NOW IT IS JUST THE OPPOSITE. HE LIKES BIPAP, AND CLAIMS THAT HE USES IT EVERY NIGHT, SLEEPS GOOD AND HAS NO RESPIRATORY DISTRESS. HE USES BIPAP EVEN DURING THE DAYTIME IF HE IS FEELING SHORT OF BREATH. HE DOES NOT USE OXYGEN AT ALL. HE CLAIMS THAT HE HAS TO PAY LARGE AMOUNT EVERY MONTH TO KEEP THE O2 AT HOME. SO HE IS INSISTING ON RETURNING THE OXYGEN CONCENTRATOR. 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 WHERE HE GOES ABOUT EVERY 2 WEEKS AND HAS VISITING NURSE COME TO HIS HOUSE TWICE A WEEK TO CHANGE THE DRESSING. [facility] Medical History (HFpEF) heart failure with preserved ejection fraction Anxiety Bradycardia CAD (coronary artery disease) Cardiac pacemaker in situ Chronic atrial fibrillation COPD (chronic obstructive pulmonary disease) COPD (chronic obstructive pulmonary disease) COPD (chronic obstructive pulmonary disease) HTN (hypertension) Hyperlipidemia Malignant neoplasm of lateral wall of urinary bladder Pulmonary hypertension Raynaud disease Respiratory failure Surgical History H/O transurethral resection of prostate History of appendectomy History of back surgery History of placement of leadless cardiac pacemaker History of prostate surgery Stented coronary artery Family History Father Lung cancer Cancer Mother No problems noted. Social History Household Members: Spouse Housing: House Are you a primary child care sitter to a significant other at home: No Do you presently have visiting nurse or other home services: Yes (Visiting nurse [employer], PT [facility], Wound center on Thu) Alcohol intake: never Patient Tobacco Use Status: Former Tobacco user Quit Date: age 65 Second Hand Smoke Exposure: No Advance Directives Date on File: 09/17/21 service: Yes Current occupational status: retired Review of Systems Const Reports fatigue, Reports lethargy and Reports weakness Eyes Reports no additional complaints ENT Reports no additional complaints Card Denies chest pain, Reports irregular heart rhythm, Reports leg edema and Reports dyspnea (Even at rest) Resp Reports as per HPI and Reports dyspnea (Even at rest) GI Reports no additional complaints Reports hematuria (Off and on) and Reports urinary incontinence Musc Reports abnormal gait (Much impaired, mostly in wheelchair) and Reports muscle weakness Skin/Breast Reports system reviewed and no additional complaints, except as documented Neuro Reports abnormal gait (Much impaired, mostly in wheelchair) and Reports weakness Psych Reports anxiety Endo Reports fatigue Physical Exam Vital Signs: Last Vital Signs Pulse 60 02/03/23 13:34 BP 122/60 02/03/23 13:34 Pulse Ox 96 02/03/23 13:34 Oxygen Delivery Method Room Air 02/03/23 13:34 BMI result Body Mass Index 20.6 Const General: no acute distress (But very anxious and states that he cannot catch his breath), alert and awake Orientation/consciousness: patient oriented x3 HEENT Head: Yes normal to inspection General nose exam: No nasal polyps present and No nasal discharge present Face and sinus: Yes sinuses nontender Mouth: oropharynx normal Throat: Yes posterior oropharynx normal Eyes General: appearance normal, both eyes and all related structures Neck Neck: Yes normal visual inspection, Yes no lymphadenopathy, Yes trachea midline and Yes no JVD Thyroid: Thyroid normal Chest Chest palpation & inspection: normal inspection of the chest, normal palpation of entire chest wall and no tenderness Resp Other: Percussion note resonant, breath sounds are very distant with prolonged expiratory phase. No wheezes, or creps. o2 SAT= 95 % Cardio Rhythm: abnormal rhythm (Atrial fib) Heart sounds: no gallops and no murmurs GI Palpation (GI): Soft to palpation, nontender, No hepatosplenomegaly present and no masses Auscultation: normal bowel sounds Back/Spine/Pelvis Thoracic/Lumbar Spine: thoracic and lumbar spine normal to inspection and thoraco-lumbar ROM limited Skin General skin exam: no rashes or lesions noted Neuro General: patient oriented x3, No gait normal (Non ambulatory, in wheelchair) and no focal motor deficits Cranial nerves: Yes CN's II-XII intact bilaterally Extrem General: Yes normal to inspection, Yes no calf tenderness and Yes edema (Chronic stasis type edema of the legs, not much at this time.) Right upper extremity: Extremity exam: right hand (Both hands are cold with purplish discoloration of the fingernails) Psych Speech and movement: Normal speech and movement present Affect: Anxious affect present Assessment & Plan Assessment & Plan (1) COPD (chronic obstructive pulmonary disease): Comment: THIS GENTLEMAN DOES HAVE RATHER SEVERE OBSTRUCTIVE AIRWAY DISORDER. IT IS REMAINING STABLE WITH CURRENT MEDICAL REGIMEN AND HE IS ADVISED TO CONTINUE THE SAME TX: WIXELA 250-51 INHALATION B.I.D. STIOLTO RESPIMAT 2.5 -2.5 2 PUFFS DAILY FLONASE-5 0 2 SPRAY EACH NOSTRIL DAILY. Code(s): J44.9 - Chronic obstructive pulmonary disease, unspecified (2) Congestive heart failure: Comment: SEEMS TO BE UNDER GOOD CONTROL . BEING FOLLOWED BY CARDIOLOGY . Code(s): I50.9 - Heart failure, unspecified (3) Anxiety: Comment: PATIENT DOES HAVE HISTORY OF ANXIETY IN THE PAST HE IS VERY CALM AND QUIET AT THIS TIME, DOES NOT NEED TO USE ANY ANXIOLYTIC AGENT.. Code(s): F41.9 - Anxiety disorder, unspecified (4) Respiratory failure: Comment: Patient has past history of respiratory failure , and has been treated with BiPAP 14/7 cm. He had stop using the BiPAP. And thus was prescribed only O2 supplementation at night. However at present things are just the opposite. He prefers to use BiPAP which he claims that he uses every night and sleeps well. He checks his O2 sats and they are 95-96%. He does have stationary concentrator at home , but does not use it during the daytime. He say is if he gets short of breath during the daytime he would rather use BiPAP .and not the oxygen * he insists that he would return his O2 concentrator, ( underlying reason seems to be cost ) Code(s): J96.90 - Respiratory failure, unspecified, unspecified whether with hypoxia or hypercapnia Coding Level of Care Code Est Pt Level 4 (40755) Diagnoses COPD (chronic obstructive pulmonary disease) J44.9 Congestive heart failure I50.9 Anxiety F41.9 Respiratory failure J96.90
== END 2023-02-03 14:02 | disposition home or self-care (01) ==
PROVIDERS: PCP Internal Medicine; Visit Provider Internal Medicine
DX: J44.9 Chronic obstructive pulmonary disease, unspecified (principal); I50.9 Heart failure, unspecified; F41.9 Anxiety disorder, unspecified; J96.90 Respiratory failure, unspecified, unspecified whether with hypoxia or hypercapnia
CPT/HCPCS: 99214

== ENCOUNTER → 2023-02-03 13:26 | Outpatient (BNVA) | payer MEDICARE, OTHER, SELFPAY | PROVIDERS: PCP Internal Medicine; Visit Provider Internal Medicine | DX: J44.9 Chronic obstructive pulmonary disease, unspecified (principal); J96.90 Respiratory failure, unspecified, unspecified whether with hypoxia or hypercapnia; I50.9 Heart failure, unspecified; F41.9 Anxiety disorder, unspecified | CPT/HCPCS: 99212 ==

== ENCOUNTER 2023-02-24 12:48 | Outpatient (REF) | payer MEDICARE, OTHER, SELFPAY ==
--- NOTE | ~2023-02-24 | CT_ITS ---
EXAMINATION: CT CHEST WITHOUT CONTRAST CLINICAL INFORMATION: Follow-up pulmonary nodule. COMPARISON: 01/09/2021 and 12/02/2016 TECHNIQUE: Multidetector volumetric CT imaging of the chest was done. Axial MIP volume rendering provided. Sagittal and coronal reformatted images were obtained. This CT examination was performed using dose optimization techniques as appropriate, variously including the following: *Automated exposure control *Adjustment of mA and/or kV according to patient size (this includes techniques or standardized protocols for targeted exams where dose is matched to indication/reason for exam; i.e. extremities or head) *Use of iterative reconstruction technique DLP: 133 mGy-cm FINDINGS: LUNGS: Moderate centrilobular emphysema. Motion artifact technically degrades image quality. There is an 8 mm left lower lobe nodule on image 295 series 6. No new or enlarging pulmonary nodule. No parenchymal consolidation. Central airways are patent. MEDIASTINUM: Heterogeneous right thyroid lobe. No bulky axillary, hilar or mediastinal lymphadenopathy. Dilated pulmonary arteries. Heart is enlarged. No pericardial effusion. CORONARY ARTERY CALCIFICATION: Severe. PLEURA: No pleural effusion. CHEST WALL: Gynecomastia. UPPER ABDOMEN: Nodular surface contour of the liver. Probable gallstones. Mild thickening of the adrenal glands. Severe atherosclerotic vascular calcification of the abdominal aorta and major branch vessels. OSSEOUS STRUCTURES: No destructive bone lesions. CT/CT chest wo IV con IMPRESSION: Stable 8 mm left lower lobe pulmonary nodule since 08/11/2016. Follow-up as clinically indicated.
== END 2023-02-24 12:49 | disposition home or self-care (01) ==
LOC: HO.CT 12:48
PROVIDERS: PCP Internal Medicine; Visit Provider Internal Medicine
DX: R91.1 Solitary pulmonary nodule (principal)
CPT/HCPCS: 71250

== ENCOUNTER → 2023-02-24 23:59 | Outpatient (BNV) | payer MEDICARE, OTHER, SELFPAY ==
--- NOTE | 2023-02-26 11:19 | A.OFFVIS_ITS ---
Intake Intake Visit Reasons: Remote device check- [employer] Allergies No Known Allergies [No Known Allergies*] Allergy (Verified 02/03/23 13:59) PFSH Medical History (HFpEF) heart failure with preserved ejection fraction Anxiety Bradycardia CAD (coronary artery disease) Cardiac pacemaker in situ Chronic atrial fibrillation COPD (chronic obstructive pulmonary disease) COPD (chronic obstructive pulmonary disease) COPD (chronic obstructive pulmonary disease) HTN (hypertension) Hyperlipidemia Malignant neoplasm of lateral wall of urinary bladder Pulmonary hypertension Raynaud disease Respiratory failure Surgical History H/O transurethral resection of prostate History of appendectomy History of back surgery History of placement of leadless cardiac pacemaker History of prostate surgery Stented coronary artery Family History Father Lung cancer Cancer Mother No problems noted. Social History Household Members: Spouse Housing: House Are you a primary daycare provider to a significant other at home: No Do you presently have visiting nurse or other home services: Yes (Visiting nurse [employer], PT [facility], Wound center on Thu) Alcohol intake: never Patient Tobacco Use Status: Former Tobacco user Quit Date: age 65 Second Hand Smoke Exposure: No Advance Directives Date on File: 09/17/21 service: Yes Current occupational status: retired Office Procedures Cardiac Device Check Cardiac Device Check Details: Remote pacemaker report generated 02/24/2023. Pacemaker function is adequate [id number] Cardiac Device Interrogation, pacemaker Procedure code (CPT) selection complete Coding Level of Care Code Procedure Only Diagnoses CPT Codes Cardiac Device Check - Cardiac Device 12: [id number] Cardiac Device Interrogation, pacemaker ([id number])
== END ==
PROVIDERS: PCP Internal Medicine; Visit Provider Internal Medicine Cardiovascular Disease
DX: I48.20 Chronic atrial fibrillation, unspecified (principal); Z95.0 Presence of cardiac pacemaker
CPT/HCPCS: 93294

== ENCOUNTER 2023-03-26 15:25 | Outpatient (REF) | payer MEDICARE, OTHER, SELFPAY ==
[2023-03-26 15:49] LABS: Appearance Urine Clear; Color Urine Yellow; Glucose Urine UA Negative (Negative); Leukocyte Esterase Urine Negative (Negative); Nitrite Urine Negative (Negative); PH 6.5 (5.0-9.0); Urine Blood Negative (Negative); Urine Ketones Negative (Negative); Urine Protein Negative (Neg-Trace)
[2023-03-26 15:52] LABS: Bacteria Urine None Seen (None Seen); Hyaline Casts Urine 0-2 /LPF (0-2); RBC Urine 0-2 /HPF (0-2); Squamous Epithelial Cell Urine 0-2 /HPF (0-2); WBC Urine 0-5 /HPF (0-5)
== END 2023-03-26 15:26 | disposition home or self-care (01) ==
LOC: HO.LNP 15:25
PROVIDERS: Visit Provider Internal Medicine
DX: N39.0 Urinary tract infection, site not specified (principal)
CPT/HCPCS: 81001

== ENCOUNTER 2023-05-05 12:53 | Outpatient (REF) | payer MEDICARE, OTHER, SELFPAY ==
[2023-05-05 16:15] LABS: Urine Cytology See Pathology rpt
== END 2023-05-05 12:54 | disposition home or self-care (01) ==
LOC: HO.LAB 12:53
PROVIDERS: Visit Provider Urology
DX: C67.9 Malignant neoplasm of bladder, unspecified (principal); N31.9 Neuromuscular dysfunction of bladder, unspecified; L97.921 Non-pressure chronic ulcer of unspecified part of left lower leg limited to breakdown of skin; Z79.01 Long term (current) use of anticoagulants; Z79.899 Other long term (current) drug therapy
CPT/HCPCS: 52000; 81003; 88112

== ENCOUNTER 2023-05-05 12:53 | Outpatient (AMB) | payer MEDICARE, OTHER, SELFPAY ==
--- NOTE | 2023-05-05 12:59 | A.OFFVIS_ITS ---
Intake Intake Visit Reasons: Cysto Intake Note: Patient is Present for Cystoscopy Urology Med: Bethanechol, Finasteride, Tamsulosin, Antibiotic Allergy: None Blood Thinner: Xarelto URO- G Disposable Cystoscope lot: [id number] exp:12/10/24 Allergies No Known Allergies [No Known Allergies*] Allergy (Verified 05/05/23 13:00) Medication List - Last Reconciled 05/05/23 by Murray Watters MD albuterol sulfate 90 mcg/actuation 2 puffs inhalation Q6H PRN atorvastatin 20 mg PO DAILY bethanechol chloride 100 mg PO BID ferrous sulfate 325 mg PO DAILY finasteride 5 mg PO DAILY fluticasone propion-salmeterol 250-50 mcg/dose (Wixela Inhub) 1 inh inhalation BID 30 days fluticasone propionate 50 mcg/actuation 1 spray intranasal DAILY lorazepam 0.5 mg PO DAILY PRN potassium chloride ER 20 mEq (2 x 10 mEq) PO DAILY rivaroxaban (Xarelto) 20 mg PO DAILY sacubitril-valsartan 24-26 mg (Entresto) 1 tab See Protocol PO BID tadalafil 5 mg PO DAILY 90 days tamsulosin 0.4 mg PO DAILY 90 days tiotropium-olodaterol 2.5-2.5 mcg/actuation (Stiolto Respimat) 2 puffs in halation Q24H 30 days torsemide 20 mg PO TID HPI HPI Comments History of Present Illness Details Duke is a very pleasant male. He is a patient of Dr. Trimble. He seen for the following urologic conditions - bladder cancer - neurogenic bladder - nonhealing also on left leg Cystoscopy normal - prostate defect He feels he is emptying effectively with the current medication Feels has good emptying on combination bethanechol and tamsulosin Trial tadalafil for nonhealing ulcer on left leg Six month follow-up cystoscopy Neurogenic bladder Incomplete bladder emptying Prior laser of prostate Current medications include tamsulosin and bethanechol 50mg daily with good effect On significant number of diuretics April 2022 - PVR 400+ cc Discussed retention issues with Darien and his . Concerns regarding congestive heart failure. Bladder cancer 2018 low-grade bladder cancer, 09/17 fulgeration Initial diagnosis 2019 low-grade bladder cancer Follow-up cystoscopy 03/18 NAD, 10/17 small lesion on prostate, 10/19 trabeculation with cellules, 05/21 trabeculation with cellules Prior TURP Intervention - 09/17 TURBT fulgeration [facility] Medical History COPD (chronic obstructive pulmonary disease) Raynaud disease Anxiety Respiratory failure COPD (chronic obstructive pulmonary disease) Cardiac pacemaker in situ Bradycardia Malignant neoplasm of lateral wall of urinary bladder COPD (chronic obstructive pulmonary disease) Hyperlipidemia HTN (hypertension) Pulmonary hypertension (HFpEF) heart failure with preserved ejection fraction CAD (coronary artery disease) Chronic atrial fibrillation Surgical History History of placement of leadless cardiac pacemaker Stented coronary artery H/O transurethral resection of prostate History of prostate surgery History of back surgery History of appendectomy Family History Father Lung cancer Cancer Mother No problems noted. Social History Household Members: Spouse Housing: House Are you a primary healthcare receptionist to a significant other at home: No Do you presently have visiting nurse or other home services: Yes (Visiting nurse [employer], PT [facility], Wound center on Thu) Alcohol intake: never Patient Tobacco Use Status: Former Tobacco user Quit Date: age 65 Second Hand Smoke Exposure: No Advance Directives Date on File: 09/17/21 service: Yes Current occupational status: retired Review of Systems Const Denies chills and Denies fever(s) Card Reports no additional complaints and Denies syncope Resp Denies cough GI Denies abdominal pain and Denies heartburn Reports as per HPI and Denies change in libido Neuro Denies syncope Psych Denies change in libido Endo Denies change in libido Physical Exam Const General: cooperative, healthy appearing, comfortable and no acute distress Orientation/consciousness: patient oriented x3 HEENT Face and sinus: Yes normal facial exam Mouth: moist mucous membranes Neck Neck: Yes normal visual inspection, Yes full ROM and Yes trachea midline Chest Chest palpation & inspection: normal inspection of the chest Resp Effort & Inspection: normal respiratory effort, able to speak in complete sentences and no respiratory distress GI Inspection: Yes normal to inspection Back/Spine/Pelvis Cervical Spine: normal cervical lordosis Thoracic/Lumbar Spine: thoracic and lumbar spine normal to inspection Skin General skin exam: no rashes or lesions noted Neuro General: patient oriented x3, gait normal, tone normal and moves all extremities Extrem General: Yes normal to inspection and Yes capillary refill normal Office Procedures Cystoscopy Consent Discussed risk and benefit or proposed procedure with the patient. Information consent for procedure given to the patient. Discussed technical aspects, risks, benefits and alternatives in full. Addressed all of the patient's questions and concerns regarding the procedure. The patient demonstrated knowledge and understanding. They wish to proceed with this procedure. Preparation The patient was prepped in the usual manner. A pump installer was present and in the room. Genitalia was prepped with betadine solution in a sterile manner. Lidocaine Jelly 2% was placed into the urethra and 16Fr flexible Olympus cystoscope was inserted into the meatus after adequate lubrication. Procedure Meatus circumcised Urethra anterior posterior urethra normal Prostatic Urethra prior prostate procedure Bladder examination with retroflexion of cystoscope Bladder Orifices normal shape and position Bladder Capacity medium Trabeculations grade 2/3 Cellule Formation yes Diverticulum Formation --- Mucosal Erythema - Bladder Tumor - [id number] DISPOSABLE SCOPE URO-G FLEXIBLE SCOPE Procedure code (CPT) selection complete Office Meds lidocaine HCl 2 % mucosal jelly in applicator Performing Provider: Murray Watters MD Performing Location: [facility] [place] [facility] Documented (not given) by: Murray Watters MD on 05/05/23 13:46 Dose Route Admin Location Dispensed Lot Number Expiration Date NDC Nurse Obgyn 10 mL intra-urethral mL nitrofurantoin monohydrate/macrocrystals 100 mg capsule Performing Provider: Murray Watters MD Performing Location: [facility] [place] [facility] Documented (not given) by: Murray Watters MD on 05/05/23 13:46 Dose Route Admin Location Dispensed Lot Number Expiration Date NDC Nurse Obgyn 100 mg PO cap naproxen 500 mg tablet Performing Provider: Murray Watters MD Performing Location: [facility] [place] [facility] Documented (not given) by: Murray Watters MD on 05/05/23 13:46 Dose Route Admin Location Dispensed Lot Number Expiration Date NDC Nurse Obgyn 500 mg PO tab Results AMB Urinalysis, Automated UA Leukoctes 0 Omega/uL Last Edit by NEWTON Latham on 05/05/23 13:01 UA Nitrite Negative Last Edit by Rika Lopez, RMA on 05/05/23 13:01 UA Urobilinogen 0.2 mg/dL Last Edit by Rika Lopez, RMA on 05/05/23 13:0 1 UA Protein 0 mg/dL Last Edit by Rika Lopez, RMA on 05/05/23 13:01 UA pH 6.0 Last Edit by Rika Lopez, RMA on 05/05/23 13:01 UA Blood 0 Devendra/uL Last Edit by Rika Lopez, RMA on 05/05/23 13:01 UA Specific [place] 1.025 Last Edit by Rika Lopez, RMA on 05/05/23 13: 01 UA Ketone Negative Last Edit by Rika Lopez, RMA on 05/05/23 13:01 UA Bilirubin 0 mg/dL Last Edit by Rika Lopez, RMA on 05/05/23 13:01 UA Glucose 0 mg/dL Last Edit by Rika Lopez, RMA on 05/05/23 13:01 Results Reviewed Results Reviewed: Laboratory Last Values Urine pH (Auto) 6.0 05/05/23 12:54 Specific [place] (Auto) 1.025 05/05/23 12:54 Urine Protein (Auto) 0 mg/dL 05/05/23 12:54 Glucose (UA)(Auto) 0 mg/dL 05/05/23 12:54 Urine Ketones (Auto) Negative 05/05/23 12:54 Urine Blood (Auto) 0 Devendra/uL 05/05/23 12:54 Urine Nitrite (Auto) Negative 05/05/23 12:54 Urine Bilirubin (Auto) 0 mg/dL 05/05/23 12:54 Urine Urobilinogen (Auto) 0.2 mg/dL 05/05/23 12:54 Leukocyte Esterase (Auto) 0 Omega/uL 05/05/23 12:54 Assessment & Plan Assessment & Plan (1) Nonhealing ulcer of left lower extremity: Code(s): L97.929 - Non-pressure chronic ulcer of unspecified part of left lower leg with unspecified severity Qualifiers: Non-pressure ulcer stage: limited to breakdown of skin Qualified Code(s): L97.921 - Non-pressure chronic ulcer of unspecified part of left lower leg limited to breakdown of skin Plan Six month follow-up cysto Orders: Orders AMB Urinalysis Automated Today Z13.9 - Encounter for screening, unspecified Urine Cytology Today C67.9 - Malignant neoplasm of bladder, unspecified AMB Cystoscopy Today C67.9 - Malignant neoplasm of bladder, unspecified Medications: New nitrofurantoin monohyd/m-cryst 100 mg 100 mg PO ONCE 1 cap 0RF C67.9 - Malignant neoplasm of bladder, unspecified naproxen 500 mg PO ONCE 1 tab 0RF C67.9 - Malignant neoplasm of bladder, unspecified lidocaine HCl 2% 10 mL intra-urethral ONCE 10 mL 0RF C67.9 - Malignant neoplasm of bladder, unspecified tadalafil 5 mg PO DAILY 90 tabs 1RF foot ulcer 90 days L97.929 - Non-pressure chronic ulcer of unspecified part of left lower leg with unspecified severity Changed From tamsulosin 0.4 mg PO DAILY 30 days 90 caps 1RF To tamsulosin 0.4 mg PO DAILY 90 caps 1RF 90 days Patient Instructions: Imaging studies, laboratory and physical exam results were discussed and reviewed in detail. No major barriers to patient understanding were identified. An opportunity to ask questions regarding the treatment plan was provided. All questions were answered. The patient expressed understanding and agreement with the above treatment plan. The patient is aware they should contact our office by phone for worsening of their current condition or the appearance of new urologic symptoms. Compliance is encouraged with any medications and followup testing that is ordered. It is a privilege to participate in the urologic care of your patient. If you have any questions or concerns regarding treatment for the above conditions, or other urologic issues, please do not hesitate to contact me. The office telephone contact is [phone]. This note is constructed using voice recognition software. While every effort has been made to ensure accuracy divinity teacher errors may have been included. Yours sincerely, Dr Murray Watters MD, [facility] - Urology Providers of Expert, Compassionate Care for the Genitourinary System Coding Level of Care Code Est Pt Level 4 (44678) Diagnoses Nonhealing ulcer of left lower extremity limited to breakdown of skin L97.921 Non-pressure ulcer stage: limited to breakdown of skin CPT Codes Cystoscopy - CPT: 86105-[id number] ([id number])
== END 2023-05-05 13:45 | disposition home or self-care (01) ==
PROVIDERS: Visit Provider Urology
DX: C67.8 Malignant neoplasm of overlapping sites of bladder (principal); N31.9 Neuromuscular dysfunction of bladder, unspecified; L97.929 Non-pressure chronic ulcer of unspecified part of left lower leg with unspecified severity
CPT/HCPCS: 52000

== ENCOUNTER → 2023-05-29 13:14 | Outpatient (REF) | payer MEDICARE, OTHER, SELFPAY ==
--- NOTE | 2023-05-29 13:16 | CA_ITS ---
Transthoracic Echocardiogram Patient (Last, First, Middle): Duke Felton W Gender: Male Date of : 1935 Age: 87 Procedure Date: 05/29/2023 Procedure Type: Transthoracic Echocardiogram Location: OP Height: 185.42 cm Weight: 68.04 kg BSA: 1.90 m2 Heart Rate: bpm BP: 150 / 60 mmHg Chemists: TO Referring MD: Albert Cabrera MD Education Professional: Albert Cabrera MD Symptoms: I50.9 - Heart failure, unspecified Study Quality: Fair ECG Rhythm: Atrial Fibrillation Conclusions: - 1. Low normal LV ejection fraction 50-55% with possible restrictive filling pattern 2. Severe biatrial enlargement 3. Moderately dilated right ventricle with preserved contractility next number for mild aortic regurgitation and mild mitral regurgitation 5. Moderate to severe elevation right in systolic pressure is significantly elevated right atrial pressures 6. Mildly dilated ascending aorta at 3.7 cm 7. No gross pericardial effusion Findings Left Ventricle Normal left ventricular cavity size. There is normal left ventricular wall thickness. The left ventricular systolic function is low normal. The visually estimated ejection fraction is between 50-55%. Spectral Doppler is indicative of a restrictive filling pattern. Right Ventricle Moderately increased right ventricular cavity size. There is normal right ventricular systolic function. Atria Severe biatrial enlargement. There is no evidence of interatrial shunt. Aortic Valve There is mild calcification of the aortic valve. There is mild thickening of the aortic valve. There is mild aortic valve regurgitation. Mitral Valve There is mild anterior and posterior mitral leaflet thickening. There is mild mitral annular calcification. There is mild mitral valve regurgitation. There is no mitral valve stenosis. Pulmonic Valve The pulmonic valve is likely normal. Tricuspid Valve Normal tricuspid valve structure. There is mild tricuspid valve regurgitation. Significantly elevated right atrial pressure. Moderate to severe pulmonary hypertension is present. Great Vessels There is mild dilatation of the ascending aorta measuring 3.70 cm. Venous The inferior vena cava is severely dilated and collapses less than 50% with inspiration. Pericardium/Pleural There is no evidence of pericardial effusion. Prior Study Comparison Changes noted compared to prior study dated: 06/13/2022. RV systolic pressure is moderate to severely elevated with significantly elevated right atrial pressures Measurements 2D Linear Measurements IVSd: 0.97 0.6-0.9/0.6-1.0 cm LVIDd: 4.94 3.9-5.3/4.2-5.9 cm LVIDd Index: 2.60 2.4-3.2/2.2-3.1 cm/m2 LVIDs: 3.35 2.0-3.6 cm LVPWd: 1.23 0.7-1.1 cm LA Diam: 5.00 2.7-3.8/3.0-4.0 cm LAIDs Index: 2.63 1.5-2.3 cm/m2 LV Mass: 253.34 67-162/88-224 g LV Mass Index: 133.34 43-95/49-115 g/m2 LVOT Diam: 2.40 3.0+(-)1.3 cm 2D Systolic Function EF 4C: 49.90 >55% EF 2C: 50.70 >55% EF BiP: 51.20 >55% Mitral Valve MV Pk E: 1.24 MV Decel Time: 175.00 E'Lateral: 10.20 E'Medial: 6.53 E/E' Med: 19.00 E/E' Lat: 12.20 PHT: 51.00 MVA PHT: 4.31 Decel Dare: 7.10 Aortic Valve AI Pk Alvaro: 3.27 AI Dare: 1.84 LVOT LVOT Pk Alvaro: 0.51 LVOT Mn Alvaro: 0.36 LVOT VTI: 0.14 LVOT Pk Grad: 1.00 LVOT Mn Grad: 1.00 LVOT Diam: 2.40 LVOT Area: 4.52 Diastolic Function MV Pk E: 1.24 E'Medial: 6.53 E/E' Med: 19.00 E' Laterial: 10.20 E/E' Lat: 12.20 Right Ventricle TAPSE (mm): 18.00 TVS' Alvaro: 12.40 Tricuspid Valve TR Pk Alvaro: 3.50 TR Pk Grad: 49.00 RA Press: 15.00 RVSP: 64.00 Great Vessels Aorta Sinus of Valsalva: 3.32 2.0-3.[address] [place]: 2.73 1.7-3.4 cm Ao Asc: 3.70 2.1-3.4 cm Updated in Other Vendor System with Status of Final Albert Cabrera MD electronically signed on 05/30/2023 12:17:49 PM with status of Final
== END ==
LOC: HO.CARD 13:14
PROVIDERS: PCP Internal Medicine; Visit Provider Internal Medicine Cardiovascular Disease
DX: I50.9 Heart failure, unspecified (principal)
CPT/HCPCS: 93306

== ENCOUNTER → 2023-05-29 13:16 | Outpatient (BNV) | payer MEDICARE, OTHER, SELFPAY | PROVIDERS: PCP Internal Medicine; Visit Provider Internal Medicine Cardiovascular Disease | DX: I36.1 Nonrheumatic tricuspid (valve) insufficiency (principal); I35.1 Nonrheumatic aortic (valve) insufficiency | CPT/HCPCS: 93306 ==

== ENCOUNTER → 2023-06-04 23:59 | Outpatient (BNV) | payer MEDICARE, OTHER, SELFPAY ==
--- NOTE | 2023-06-08 14:25 | MHC.OFFVIS ---
Intake Intake Visit Reasons: Remote Device Check- Medtronic Allergies No Known Allergies [No Known Allergies*] Allergy (Verified 05/05/23 13:00) [facility] Medical History COPD (chronic obstructive pulmonary disease) Raynaud disease Anxiety Respiratory failure COPD (chronic obstructive pulmonary disease) Cardiac pacemaker in situ Bradycardia Malignant neoplasm of lateral wall of urinary bladder COPD (chronic obstructive pulmonary disease) Hyperlipidemia HTN (hypertension) Pulmonary hypertension (HFpEF) heart failure with preserved ejection fraction CAD (coronary artery disease) Chronic atrial fibrillation Surgical History History of placement of leadless cardiac pacemaker Stented coronary artery H/O transurethral resection of prostate History of prostate surgery History of back surgery History of appendectomy Family History Father Lung cancer Cancer Mother No problems noted. Social History Household Members: Spouse Housing: House Are you a primary healthcare administrative assistant to a significant other at home: No Do you presently have visiting nurse or other home services: Yes (Visiting nurse [employer], PT [facility], Wound center on Thu) Alcohol intake: never Patient Tobacco Use Status: Former Tobacco user Quit Date: age 65 Second Hand Smoke Exposure: No Advance Directives Date on File: 09/17/21 service: Yes Current occupational status: retired Office Procedures Cardiac Device Check Cardiac Device Check Details: Remote pacemaker report generated 06/04/2023. Pacemaker function is adequate [id number] Cardiac Device Interrogation, pacemaker Procedure code (CPT) selection complete Assessment & Plan Assessment & Plan (1) Cardiac pacemaker in situ: Comment: Medtronic leadless pacemaker implanted on April 17 Code(s): Z95.0 - Presence of cardiac pacemaker Plan: See above Coding Level of Care Code Procedure Only Diagnoses Cardiac pacemaker in situ Z95.0 CPT Codes Cardiac Device Check - Cardiac Device 12: [id number] Cardiac Device Interrogation, pacemaker ([id number])
== END ==
PROVIDERS: PCP Internal Medicine; Visit Provider Internal Medicine Cardiovascular Disease
DX: I48.20 Chronic atrial fibrillation, unspecified (principal); Z95.0 Presence of cardiac pacemaker
CPT/HCPCS: 93294

== ENCOUNTER 2023-06-11 11:27 | Outpatient (AMB) | payer MEDICARE, OTHER, SELFPAY ==
[2023-06-11 11:30] VITALS: BP 122/70; PULSE 60; BMI 20.8
--- NOTE | 2023-06-11 11:30 | MHC.OFFVIS ---
Intake Vital Signs 06/11/23 11:30 Height 6 ft 1 in Weight 157 lb 6.561 oz BMI 20.8 BP 122/70 Blood Pressure Location Lt brachial Position Sitting Pulse 60 Intake Visit Reasons: 6 month follow up w/ device check Intake Note: 6 mnth f/up w/ divice check pt it feeling good [employer] Consultant Required: No Accompanied by: Self / Same As Patient Allergies No Known Allergies [No Known Allergies*] Allergy (Verified 05/05/23 13:00) Medication List - Last Reconciled 06/11/23 by Albert Cabrera MD albuterol sulfate 90 mcg/actuation 2 puffs inhalation Q6H PRN atorvastatin 20 mg PO DAILY bethanechol chloride 100 mg PO BID ferrous sulfate 325 mg PO DAILY finasteride 5 mg PO DAILY fluticasone propion-salmeterol 250-50 mcg/dose (Wixela Inhub) 1 inh inhalation BID 30 days fluticasone propionate 50 mcg/actuation 1 spray intranasal DAILY lorazepam 0.5 mg PO DAILY PRN potassium chloride ER 20 mEq (2 x 10 mEq) PO DAILY rivaroxaban (Xarelto) 20 mg PO DAILY sacubitril-valsartan 24-26 mg (Entresto) 1 tab See Protocol PO BID tadalafil 5 mg PO DAILY 90 days tamsulosin 0.4 mg PO DAILY 90 days tiotropium-olodaterol 2.5-2.5 mcg/actuation (Stiolto Respimat) 2 puffs inhalation Q24H 30 days torsemide 20 mg PO TID HPI HPI Comments History of Present Illness Details Darien comes for follow-up. He is currently dealing with recurrent ulcers in his legs. Seeing wound clinic. Denies worsening cardiac symptoms. His recent echocardiogram shows improvement in LVEF to 50-55% but shows persistently elevated right atrial pressures. He denies worsening heart failure symptoms. Denies any worsening leg edema, abdominal distension, shortness of breath, orthopnea, PND. Denies any anginal symptoms. Denies any syncopal episodes. Does occasionally have symptoms of lightheadedness but not all times. Denies any prolonged palpitation irregular heartbeat. No bleeding issues or neurologic events. [facility] Medical History COPD (chronic obstructive pulmonary disease) Raynaud disease Anxiety Respiratory failure COPD (chronic obstructive pulmonary disease) Cardiac pacemaker in situ Bradycardia Malignant neoplasm of lateral wall of urinary bladder COPD (chronic obstructive pulmonary disease) Hyperlipidemia HTN (hypertension) Pulmonary hypertension (HFpEF) heart failure with preserved ejection fraction CAD (coronary artery disease) Chronic atrial fibrillation Surgical History History of placement of leadless cardiac pacemaker Stented coronary artery H/O transurethral resection of prostate History of prostate surgery History of back surgery History of appendectomy Family History Father Lung cancer Cancer Mother No problems noted. Social History Household Members: Spouse Housing: House Are you a primary healthcare market consultant to a significant other at home: No Do you presently have visiting nurse or other home services: Yes (Visiting nurse [employer], PT [facility], Wound center on Thu) Alcohol intake: never Patient Tobacco Use Status: Former Tobacco user Quit Date: age 65 Second Hand Smoke Exposure: No Advance Directives Date on File: 09/17/21 service: Yes Current occupational status: retired Review of Systems Const Denies chills, Denies fatigue, Denies fever(s), Denies frequent falls, Denies weakness, Denies weight gain and Denies weight loss ENT Denies dizziness Card Denies chest pain, Denies leg edema, Denies lightheadedness, Denies palpitations, Denies dyspnea, Denies dyspnea on exertion, Denies orthopnea and Denies other (loss of consciousness) Resp Denies cough, Denies dyspnea and Denies dyspnea on exertion GI Denies hematochezia and Denies change in stool character Musc Denies abnormal gait, Denies muscle weakness, Denies numbness, Denies radiating pain into limb and Denies tingling Neuro Denies abnormal gait, Denies dizziness, Denies frequent falls, Denies numbness, Denies tingling and Denies weakness Endo Denies fatigue and Denies palpitations Physical Exam Vital Signs: Last Vital Signs Pulse 60 06/11/23 11:30 BP 122/70 06/11/23 11:30 BMI result Body Mass Index 20.8 Const General: cooperative, comfortable, no acute distress, alert and awake Nutritional Appearance: thin, underweight and other (Frail elderly man) Orientation/consciousness: patient oriented x3 Limitations: no limitations Neck Neck: Yes trachea midline, Yes supple and Yes no JVD Resp Effort & Inspection: normal respiratory effort Auscultation: clear to auscultation bilaterally and diminished lung sounds Cardio Jugular venous distension: no JVD Palpation: abnormal PMI displaced PMI Rhythm: abnormal rhythm irregularly irregular Heart sounds: S1 normal heart sound present, S2 normal heart sound present, no click, no gallops and no murmurs GI Auscultation: normal bowel sounds Skin General skin exam: no rashes or lesions noted and ecchymosis Neuro General: patient oriented x3 and no focal motor deficits Extrem General: Yes no clubbing, cyanosis or edema Office Procedures Cardiac Device Check Cardiac Device Check Details: Leadless Medtronic pacemaker in place. Programmed in VVIR at 50 beats per minute. Ventricular sensing could not be checked. Ventricular pacing thresholds adequate. Ventricular pacing 82% of time. Battery life is excellent [id number] Cardiac Device Check, leadless/single lead pacemaker Procedure code (CPT) selection complete Assessment & Plan Assessment & Plan (1) Congestive heart failure: Comment: SEEMS TO BE UNDER GOOD CONTROL . BEING FOLLOWED BY CARDIOLOGY . Code(s): I50.9 - Heart failure, unspecified Plan: Patient with congestive heart failure with prior LV systolic dysfunction. LV systolic function is improved on current therapy with rate control and Entresto therapy with improved LV EF to 50-55%. Clinically today appears to be euvolemic and well compensated in no progressive heart failure symptoms. Echocardiogram however shows persistently elevated right atrial pressures. Discussed with patient about the discrepant findings. Currently will not change his torsemide dose. Advised daily weight monitoring avoidance of salt loading. Advised to call me with worsening symptoms and/or increase diuretic dose if he has sudden weight gain or worsening fluid buildup. He understands management well. (2) CAD (coronary artery disease): Code(s): I25.10 - Atherosclerotic heart disease of [place] coronary artery without angina pectoris Plan: Patient with diffuse vascular disease with CAD. Followed by vascular surgery for carotid disease and is also going to have lower extremity ultrasound in near future. Currently on full oral anticoagulation with Xarelto and would therefore avoid aspirin therapy. Continue blood pressure control which is currently well optimized. Continue statin therapy with target goal LDL less than 70 mg/dL. Advised to call me with worsening anginal symptoms. (3) Chronic atrial fibrillation: Code(s): I48.20 - Chronic atrial fibrillation, unspecified Plan: Chronic rate control atrial fibrillation which is currently adequately rate controlled. No need for additional in rate control regimen given that he is mostly on the slow side. Continue full oral anticoagulation, currently on Xarelto 20 mg daily. Semi annual renal function test is recommended (4) Cardiac pacemaker in situ: Comment: Medtronic leadless pacemaker implanted on April 17 Code(s): Z95.0 - Presence of cardiac pacemaker Plan: Cardiac pacemaker in-situ for bradycardiac. It is a leadless pacemaker. Pacemaker is working well. Will follow remotely every 3 months and follow up in the clinic in 6 months time. Follow up in the clinic in 6 months time, sooner p.r.n.. Greater than 40 minutes was spent in managing his complex Orders: Orders Basic Metabolic Panel Today I48.20 - Chronic atrial fibrillation, unspecified Coding Level of Care Code Est Pt Level 5 (90662) Diagnoses Congestive heart failure I50.9 CAD (coronary artery disease) I25.10 Chronic atrial fibrillation I48.20 Cardiac pacemaker in situ Z95.0 CPT Codes Cardiac Device Check - Cardiac Device 1: [id number] Cardiac Device Check, leadless/single lead pacemaker ([id number])
== END 2023-06-11 11:45 | disposition home or self-care (01) ==
PROVIDERS: PCP Internal Medicine; Visit Provider Internal Medicine Cardiovascular Disease
DX: I50.9 Heart failure, unspecified (principal); I25.10 Atherosclerotic heart disease of native coronary artery without angina pectoris; I48.20 Chronic atrial fibrillation, unspecified; Z95.0 Presence of cardiac pacemaker
CPT/HCPCS: 93279; 99215

== ENCOUNTER 2023-06-11 11:27 | Outpatient (REF) | payer MEDICARE, OTHER, SELFPAY ==
[2023-06-11 14:36] LABS: Anion Gap 13 (12-20); Blood Urea Nitrogen 46 mg/dL (9-16); Calcium 9.9 mg/dL (8.4-10.2); Carbon Dioxide 26 mmol/L (22-29); Chloride 106 mmol/L (96-108); Estimated Glomerular Filt Rate > 60; Glucose Random 107 mg/dL (60-115); Potassium 4.9 mmol/L (3.3-5.1); Sodium 140 mmol/L (135-145)
== END 2023-06-11 11:28 | disposition home or self-care (01) ==
LOC: HO.LAB 11:27
PROVIDERS: PCP Internal Medicine; Visit Provider Internal Medicine Cardiovascular Disease
DX: I25.10 Atherosclerotic heart disease of native coronary artery without angina pectoris (principal); I48.20 Chronic atrial fibrillation, unspecified; I50.9 Heart failure, unspecified; Z95.0 Presence of cardiac pacemaker
CPT/HCPCS: 36415; 80048; 99212

== ENCOUNTER 2023-06-16 14:10 | Outpatient (AMB) | payer MEDICARE, OTHER, SELFPAY ==
[2023-06-16 14:24] VITALS: BP 110/60; BMI 21.1
--- NOTE | 2023-06-16 14:24 | MHC.OFFVIS ---
Intake Vital Signs 06/16/23 14:24 Height 6 ft 1 in Weight 160 lb 0.9 oz BMI 21.1 BP 110/60 Blood Pressure Location Lt brachial Position Sitting Intake Visit Reasons: COPD Intake Note: pt is here for follow up and is using his bipap at night, most night he does use it half a night due to bathroom visits, he is walking football field and half and feels good. Allergies No Known Allergies [No Known Allergies*] Allergy (Verified 06/16/23 16:37) Medication List - Last Reconciled 06/16/23 by Dawn Vila MD albuterol sulfate 90 mcg/actuation 2 puffs inhalation Q6H PRN atorvastatin 20 mg PO DAILY bethanechol chloride 100 mg PO BID ferrous sulfate 325 mg PO DAILY finasteride 5 mg PO DAILY fluticasone propionate 50 mcg/actuation 1 spray intranasal DAILY lorazepam 0.5 mg PO DAILY PRN potassium chloride ER 20 mEq (2 x 10 mEq) PO DAILY rivaroxaban (Xarelto) 20 mg PO DAILY sacubitril-valsartan 24-26 mg (Entresto) 1 tab See Protocol PO BID tadalafil 5 mg PO DAILY 90 days tamsulosin 0.4 mg PO DAILY 90 days tiotropium-olodaterol 2.5-2.5 mcg/actuation (Stiolto Respimat) 2 puffs inhalation Q24H 30 days torsemide 20 mg PO TID Do you need a note to return to daycare/school/sports/work: No HPI COPD HPI Details This 87 years old very pleasant gentleman, is a case of severe chronic obstructive pulmonary disease, with the sleep-related hypoventilation syndrome. He used to be on O2 during the night with the Bipap and also p.r.n. during the daytime. However he has returned the O2 equipments, and now he just uses BiPAP at night. He claims that his breathing is okay . He sleeps good with the BiPAP. He has no issue with the mask or BiPAP device. He walks around in the house and also walks a few blocks outdoors without getting short of breath. Denies any cough or expectoration. [facility] Medical History COPD (chronic obstructive pulmonary disease) Raynaud disease Anxiety Respiratory failure COPD (chronic obstructive pulmonary disease) Cardiac pacemaker in situ Bradycardia Malignant neoplasm of lateral wall of urinary bladder COPD (chronic obstructive pulmonary disease) Hyperlipidemia HTN (hypertension) Pulmonary hypertension (HFpEF) heart failure with preserved ejection fraction CAD (coronary artery disease) Chronic atrial fibrillation Surgical History History of placement of leadless cardiac pacemaker Stented coronary artery H/O transurethral resection of prostate History of prostate surgery History of back surgery History of appendectomy Family History Father Lung cancer Cancer Mother No problems noted. Social History Household Members: Spouse Housing: House Are you a primary critical care physician to a significant other at home: No Do you presently have visiting nurse or other home services: Yes (Visiting nurse [employer], PT [facility], Wound center on Thu) Alcohol intake: never Patient Tobacco Use Status: Former Tobacco user Quit Date: age 65 Second Hand Smoke Exposure: No Advance Directives Date on File: 09/17/21 service: Yes Current occupational status: retired Review of Systems Const Reports fatigue, Reports lethargy and Reports weakness Eyes Reports no additional complaints ENT Reports no additional complaints Card Denies chest pain, Reports irregular heart rhythm, Reports leg edema and Reports dyspnea (Even at rest) Resp Reports as per HPI and Reports dyspnea (Even at rest) GI Reports no additional complaints Reports hematuria (Off and on) and Reports urinary incontinence Musc Reports abnormal gait (Much impaired, mostly in wheelchair) and Reports muscle weakness Skin/Breast Reports system reviewed and no additional complaints, except as documented Neuro Reports abnormal gait (Much impaired, mostly in wheelchair) and Reports weakness Psych Reports anxiety Endo Reports fatigue Physical Exam Vital Signs: Last Vital Signs BP 110/60 06/16/23 14:24 BMI result Body Mass Index 21.1 Const General: no acute distress (But very anxious and states that he cannot catch his breath), alert and awake Orientation/consciousness: patient oriented x3 HEENT Head: Yes normal to inspection General nose exam: No nasal polyps present and No nasal discharge present Face and sinus: Yes sinuses nontender Mouth: oropharynx normal Throat: Yes posterior oropharynx normal Eyes General: appearance normal, both eyes and all related structures Neck Neck: Yes normal visual inspection, Yes no lymphadenopathy, Yes trachea midline and Yes no JVD Thyroid: Thyroid normal Chest Chest palpation & inspection: normal inspection of the chest, normal palpation of entire chest wall and no tenderness Resp Other: Percussion note resonant, breath sounds are very distant with prolonged expiratory phase. No wheezes, or creps. o2 SAT= 96 % Cardio Rhythm: abnormal rhythm (Atrial fib) Heart sounds: no gallops and no murmurs GI Palpation (GI): Soft to palpation, nontender, No hepatosplenomegaly present and no masses Auscultation: normal bowel sounds Back/Spine/Pelvis Thoracic/Lumbar Spine: thoracic and lumbar spine normal to inspection and thoraco-lumbar ROM limited Skin General skin exam: no rashes or lesions noted Neuro General: patient oriented x3, No gait normal (Non ambulatory, in wheelchair) and no focal motor deficits Cranial nerves: Yes CN's II-XII intact bilaterally Extrem General: Yes normal to inspection, Yes no calf tenderness and Yes edema (Chronic stasis type edema of the legs, not much at this time.) Right upper extremity: Extremity exam: right hand (Both hands are cold with purplish discoloration of the fingernails) Psych Speech and movement: Normal speech and movement present Affect: Anxious affect present Assessment & Plan Assessment & Plan (1) COPD (chronic obstructive pulmonary disease): Comment: THIS GENTLEMAN DOES HAVE RATHER SEVERE OBSTRUCTIVE AIRWAY DISORDER. IT IS REMAINING STABLE WITH CURRENT MEDICAL REGIMEN. He stopped using Wixela and and is using Stiolto 2 puffs daily, as well as albuterol HFA 2 puffs Q 4-6 hours p.r.n. Code(s): J44.9 - Chronic obstructive pulmonary disease, unspecified Plan: Advised to continue using Stiolto 2 puffs daily. Advised to use albuterol HFA Q 6 hours only p.r.n.. (2) Respiratory failure: Comment: Patient has past history of respiratory failure , and has been treated with BiPAP 14/7 cm. He had stopped using the BiPAP. And thus was prescribed only O2 supplementation at night. However at present things are just the opposite. He prefers to use BiPAP which he claims that he uses every night and sleeps well. Checked his compliance and that is actually good. * he has returned O2 concentrator. Code(s): J96.90 - Respiratory failure, unspecified, unspecified whether with hypoxia or hypercapnia Plan: Advised to keep on using the BiPAP every night at least for 6 hours per night and may use 1 or 2 hours during the daytime (3) Raynaud disease: Comment: He has chronic Raynaud's disease and it is difficult to check his O2 sat, However after using a finger warm or, O2 sat was 95-96%. Code(s): I73.00 - Raynaud's syndrome without gangrene Plan: as above Coding Level of Care Code Est Pt Level 3 (00854) Diagnoses COPD (chronic obstructive pulmonary disease) J44.9 Respiratory failure J96.90 Raynaud disease I73.00
== END 2023-06-16 14:56 | disposition home or self-care (01) ==
PROVIDERS: PCP Internal Medicine; Visit Provider Internal Medicine
DX: J44.9 Chronic obstructive pulmonary disease, unspecified (principal); J96.90 Respiratory failure, unspecified, unspecified whether with hypoxia or hypercapnia; I73.00 Raynaud's syndrome without gangrene
CPT/HCPCS: 99213

== ENCOUNTER → 2023-06-16 14:10 | Outpatient (BNVA) | payer MEDICARE, OTHER, SELFPAY | PROVIDERS: PCP Internal Medicine; Visit Provider Internal Medicine | DX: J44.9 Chronic obstructive pulmonary disease, unspecified (principal); J96.90 Respiratory failure, unspecified, unspecified whether with hypoxia or hypercapnia; I73.00 Raynaud's syndrome without gangrene | CPT/HCPCS: 99212 ==

== ENCOUNTER 2023-07-20 11:30 | Outpatient (REF) | payer MEDICARE, OTHER, SELFPAY ==
[2023-07-20 11:35] LABS: MANUAL DIFF FLAG NO
[2023-07-20 12:20] LABS: Basophils Percent Auto 0.9 % (0-2); Eosinophils Absolute Auto 0.1 X10*3/uL (0.0-0.4); Eosinophils Percent Auto 2.1 % (0-4); Hematocrit 39.9 % (42.0-52.0); Hemoglobin 12.5 g/dl (14.0-18.0); Imm Gran Abs Auto 0.01 X10*3/uL (0.00-0.03); Imm Gran Pct Auto 0.2 % (0.0-0.4); Lymphocytes Absolute Auto 0.7 X10*3/uL (1.2-4.9); Lymphocytes Percent Auto 14.8 % (20-40); Mean Corpuscular HGB Conc 31.3 g/dl (31.0-36.0); Mean Platelet Volume 10.1 fL (9.4-12.4); Monocytes Absolute Auto 0.6 X10*3/uL (0.1-1.2); Monocytes Percent Auto 12.5 % (2-11); Neutrophils Absolute Auto 3.1 x10*3/uL (2.0-8.3); Neutrophils Percent Auto 69.5 % (45-73); Platelet Count 239 X10*3/uL (160-400); Red Blood Count 4.03 X10*6/uL (4.60-5.80); Red Cell Distribution Width 14.6 % (11.0-16.0); White Blood Count 4.4 X10*3/uL (4.8-10.8)
[2023-07-20 12:51] LABS: Alanine Aminotransferase 9 U/L (0-40); Albumin Level 4.1 g/dL (3.5-5.0); Alkaline Phosphatase 69 U/L (39-117); Anion Gap 14 (12-20); Aspartate Amino Transferase 20 U/L (5-37); Bilirubin Total 0.6 mg/dL (0.0-1.0); Blood Urea Nitrogen 45 mg/dL (9-16); Calcium 9.3 mg/dL (8.4-10.2); Carbon Dioxide 26 mmol/L (22-29); Chloride 107 mmol/L (96-108); Cholesterol 127 mg/dL (<200); Estimated Glomerular Filt Rate 58; Glucose Fasting 94 mg/dL (60-99); HDL Cholesterol 46 mg/dL (>40); Iron 51 mcg/dL (45-160); LDL Cholesterol Calculated 69 mg/dL (<100); Percent Iron Saturation 18 % (15-50); Potassium 4.3 mmol/L (3.3-5.1); Sodium 143 mmol/L (135-145); Total Iron Binding Capacity 278 mcg/dL (228-428); Total Protein 7.8 g/dL (6.5-8.0); Triglycerides 62 mg/dL (<150); Unsaturated Iron Binding 227 ug/dL
[2023-07-20 12:56] LABS: PSA,Total (Free>4and<10) 0.75 ng/mL (0.00-4.00)
[2023-07-20 13:15] LABS: Vitamin B12 392 pg/mL (200-900)
== END 2023-07-20 11:31 | disposition home or self-care (01) ==
LOC: HO.LNP 11:30
PROVIDERS: Visit Provider Internal Medicine
DX: Z12.5 Encounter for screening for malignant neoplasm of prostate (principal); I10 Essential (primary) hypertension; E78.00 Pure hypercholesterolemia, unspecified; R97.20 Elevated prostate specific antigen [PSA]; I50.21 Acute systolic (congestive) heart failure; E53.8 Deficiency of other specified B group vitamins; D50.0 Iron deficiency anemia secondary to blood loss (chronic)
CPT/HCPCS: 80053; 80061; 82607; 83540; 84153; 85025

== ENCOUNTER 2023-07-24 15:32 | Outpatient (REF) | payer MEDICARE, OTHER, SELFPAY ==
[2023-07-24 15:42] LABS: Appearance Urine Clear; Color Urine Yellow; Glucose Urine UA Negative (Negative); Leukocyte Esterase Urine Negative (Negative); Nitrite Urine Negative (Negative); PH 5.5 (5.0-9.0); Specific Gravity - Urine 1.015 (1.005-1.025); Urine Blood Negative (Negative); Urine Ketones Negative (Negative); Urine Protein Negative (Neg-Trace)
[2023-07-24 15:46] LABS: Bacteria Urine None Seen (None Seen); RBC Urine 0-2 /HPF (0-2); Squamous Epithelial Cell Urine 0-2 /HPF (0-2); WBC Urine 0-5 /HPF (0-5)
== END 2023-07-24 15:33 | disposition home or self-care (01) ==
LOC: HO.LNP 15:32
PROVIDERS: Visit Provider Internal Medicine
DX: C67.9 Malignant neoplasm of bladder, unspecified (principal); N40.0 Benign prostatic hyperplasia without lower urinary tract symptoms; I27.20 Pulmonary hypertension, unspecified
CPT/HCPCS: 81001

== ENCOUNTER → 2023-09-28 23:59 | Outpatient (BNV) | payer MEDICARE, OTHER, SELFPAY ==
--- NOTE | 2023-09-29 14:05 | A.OFFVIS_ITS ---
Intake Intake Visit Reasons: Remote Device Check- Medtronic Allergies No Known Allergies [No Known Allergies*] Allergy (Verified 06/16/23 16:37) [facility] Medical History COPD (chronic obstructive pulmonary disease) Raynaud disease Anxiety Respiratory failure COPD (chronic obstructive pulmonary disease) Cardiac pacemaker in situ Bradycardia Malignant neoplasm of lateral wall of urinary bladder COPD (chronic obstructive pulmonary disease) Hyperlipidemia HTN (hypertension) Pulmonary hypertension (HFpEF) heart failure with preserved ejection fraction CAD (coronary artery disease) Chronic atrial fibrillation Surgical History History of placement of leadless cardiac pacemaker Stented coronary artery H/O transurethral resection of prostate History of prostate surgery History of back surgery History of appendectomy Family History Father Lung cancer Cancer Mother No problems noted. Social History Household Members: Spouse Housing: House Are you a primary lawn care professional to a significant other at home: No Do you presently have visiting nurse or other home services: Yes (Visiting nurse [employer], PT [facility], Wound center on Thu) Alcohol intake: never Patient Tobacco Use Status: Former Tobacco user Quit Date: age 65 Second Hand Smoke Exposure: No Advance Directives Date on File: 09/17/21 service: Yes Current occupational status: retired Office Procedures Cardiac Device Check Cardiac Device Check Details: Remote pacemaker report generated 09/29/2023. Pacemaker function is adequate [id number] Cardiac Device Interrogation, pacemaker Procedure code (CPT) selection complete Assessment & Plan Assessment & Plan (1) Cardiac pacemaker in situ: Comment: Medtronic leadless pacemaker implanted on April 17 Code(s): Z95.0 - Presence of cardiac pacemaker Plan: See above Coding Level of Care Code Procedure Only Diagnoses Cardiac pacemaker in situ Z95.0 CPT Codes Cardiac Device Check - Cardiac Device 12: [id number] Cardiac Device Interrogation, pacemaker ([id number])
== END ==
PROVIDERS: PCP Internal Medicine; Visit Provider Internal Medicine Cardiovascular Disease
DX: Z95.0 Presence of cardiac pacemaker (principal)
CPT/HCPCS: 93294

== ENCOUNTER 2023-10-13 13:17 | Outpatient (AMB) | payer MEDICARE, OTHER, SELFPAY ==
--- NOTE | 2023-10-13 13:21 | MHC.OFFVIS ---
Intake Vital Signs 10/13/23 13:25 Height 6 ft 1 in Weight 158 lb 11.725 oz BMI 20.9 BP 120/54 L Blood Pressure Location Lt brachial Position Sitting Pulse 73 Pulse Source Pulse Oximeter Pulse Oximetry (%) 96 Oxygen Delivery Method Room Air Intake Visit Reasons: COPD Intake Note: pt is here for follow up and states he is doing well, using BIPAP at night. Allergies No Known Allergies [No Known Allergies*] Allergy (Verified 10/13/23 13:31) Medication List - Last Reconciled 10/13/23 by Dawn Vila MD albuterol sulfate 90 mcg/actuation 2 puffs inhalation Q6H PRN atorvastatin 20 mg PO DAILY bethanechol chloride 100 mg PO BID ferrous sulfate 325 mg PO DAILY finasteride 5 mg PO DAILY fluticasone propionate 50 mcg/actuation 1 spray intranasal DAILY lorazepam 0.5 mg PO DAILY PRN potassium chloride ER 20 mEq (2 x 10 mEq) PO DAILY rivaroxaban (Xarelto) 20 mg PO DAILY sacubitril-valsartan 24-26 mg (Entresto) 1 tab See Protocol PO BID tadalafil 5 mg PO DAILY 90 days tamsulosin 0.4 mg PO DAILY 90 days tiotropium-olodaterol 2.5-2.5 mcg/actuation (Stiolto Respimat) 2 puffs inhalation Q24H 30 days torsemide 20 mg PO TID Do you need a note to return to daycare/school/sports/work: No HPI COPD HPI Details Duke is 87 years old very pleasant gentleman who remains relatively active. He is here for follow-up for COPD and LUCIO. Since he gave up using oxygen at night he has been using BiPAP more regularly. He claims that he sleeps good at night and wakes up refreshed. However his compliance report indicates that there is significant air leak, and his residual AHI is still high 25.7. Subjectively he feels that he is doing better with the use of BiPAP. Breathing doyle has been very stable without any acute exacerbations, and has not used rescue inhaler for more than once or twice in the last 4 months. [facility] Medical History COPD (chronic obstructive pulmonary disease) Raynaud disease Anxiety Respiratory failure COPD (chronic obstructive pulmonary disease) Cardiac pacemaker in situ Bradycardia Malignant neoplasm of lateral wall of urinary bladder COPD (chronic obstructive pulmonary disease) Hyperlipidemia HTN (hypertension) Pulmonary hypertension (HFpEF) heart failure with preserved ejection fraction CAD (coronary artery disease) Chronic atrial fibrillation Surgical History History of placement of leadless cardiac pacemaker Stented coronary artery H/O transurethral resection of prostate History of prostate surgery History of back surgery History of appendectomy Family History Father Lung cancer Cancer Mother No problems noted. Social History Household Members: Spouse Housing: House Are you a primary manager home healthcare to a significant other at home: No Do you presently have visiting nurse or other home services: Yes (Visiting nurse [employer], PT [facility], Wound center on Thu) Alcohol intake: never Patient Tobacco Use Status: Former Tobacco user Quit Date: age 65 Second Hand Smoke Exposure: No Advance Directives Date on File: 09/17/21 service: Yes Current occupational status: retired Review of Systems Const Reports fatigue, Reports lethargy and Reports weakness Eyes Reports no additional complaints ENT Reports no additional complaints Card Denies chest pain, Reports irregular heart rhythm, Reports leg edema and Reports dyspnea (Even at rest) Resp Reports as per HPI and Reports dyspnea (Even at rest) GI Reports no additional complaints Reports hematuria (Off and on) and Reports urinary incontinence Musc Reports abnormal gait (Much impaired, mostly in wheelchair) and Reports muscle weakness Skin/Breast Reports system reviewed and no additional complaints, except as documented Neuro Reports abnormal gait (Much impaired, mostly in wheelchair) and Reports weakness Psych Reports anxiety Endo Reports fatigue Physical Exam Const General: no acute distress (But very anxious and states that he cannot catch his breath), alert and awake Orientation/consciousness: patient oriented x3 HEENT Head: Yes normal to inspection General nose exam: No nasal polyps present and No nasal discharge present Face and sinus: Yes sinuses nontender Mouth: oropharynx normal Throat: Yes posterior oropharynx normal Eyes General: appearance normal, both eyes and all related structures Neck Neck: Yes normal visual inspection, Yes no lymphadenopathy, Yes trachea midline and Yes no JVD Thyroid: Thyroid normal Chest Chest palpation & inspection: normal inspection of the chest, normal palpation of entire chest wall and no tenderness Resp Other: Percussion note resonant, breath sounds are very distant with prolonged expiratory phase. No wheezes, or creps. o2 SAT= 96 % Cardio Rhythm: abnormal rhythm (Atrial fib) Heart sounds: no gallops and no murmurs GI Palpation (GI): Soft to palpation, nontender, No hepatosplenomegaly present and no masses Auscultation: normal bowel sounds Back/Spine/Pelvis Thoracic/Lumbar Spine: thoracic and lumbar spine normal to inspection and thoraco-lumbar ROM limited Skin General skin exam: no rashes or lesions noted Neuro General: patient oriented x3, No gait normal (Non ambulatory, in wheelchair) and no focal motor deficits Cranial nerves: Yes CN's II-XII intact bilaterally Extrem General: Yes normal to inspection, Yes no calf tenderness and Yes edema (Chronic stasis type edema of the legs, not much at this time.) Right upper extremity: Extremity exam: right hand (Both hands are cold with purplish discoloration of the fingernails) Psych Speech and movement: Normal speech and movement present Affect: Anxious affect present Results Reviewed Results Reviewed: Compliance report for the last 30 nights is reviewed. He has used. 30/ nights Average usage 4 hours 52 minute. Residual AHI of 25/7 is noted, and there is significant amount of air leak 95 th percentile 106 and maximum 117 L/minutes . He admits that the mask slips off during the night and then he just takes it off . Also admits that he goes to the bathroom and then he does not put on the mask. Also admits that his mask is more than 1-year-old. He has not gotten any new supplies. Assessment & Plan Assessment & Plan (1) COPD (chronic obstructive pulmonary disease): Comment: THIS GENTLEMAN DOES HAVE RATHER SEVERE OBSTRUCTIVE AIRWAY DISORDER. IT IS REMAINING STABLE WITH CURRENT MEDICAL REGIMEN. He stopped using Wixela and and is using Stiolto 2 puffs daily, as well as albuterol HFA 2 puffs Q 4-6 hours p.r.n. Code(s): J44.9 - Chronic obstructive pulmonary disease, unspecified Plan: Continue using Stiolto 1 inhalation daily And use albuterol HFA 2 puffs Q 4-6 hours only p.r.n. (2) Respiratory failure: Comment: Patient has past history of respiratory failure , and has been treated with BiPAP 14/7 cm. He had stopped using the BiPAP. And thus was prescribed only O2 supplementation at night. However at present things are just the opposite. He prefers to use BiPAP which he claims that he uses every night and sleeps well. His compliance is good but he has residual AHI of 25.7. Which I think is due to significant amount of air leak. Code(s): J96.90 - Respiratory failure, unspecified, unspecified whether with hypoxia or hypercapnia Plan: Discussed about proper use of the mask and also about the air leak. He needs to get a new mask with good inner lining. He needs to use the BiPAP for at least. 5 hours every night He needs to tighten the straps so that there is only minimal air leak. Coding Level of Care Code Est Pt Level 3 (70730) Diagnoses COPD (chronic obstructive pulmonary disease) J44.9 Respiratory failure J96.90
[2023-10-13 13:25] VITALS: BP 120/54; PULSE 73; O2SAT 96; BMI 20.9
== END 2023-10-13 13:48 | disposition home or self-care (01) ==
PROVIDERS: PCP Internal Medicine; Visit Provider Internal Medicine
DX: J44.9 Chronic obstructive pulmonary disease, unspecified (principal); J96.90 Respiratory failure, unspecified, unspecified whether with hypoxia or hypercapnia
CPT/HCPCS: 99213

== ENCOUNTER → 2023-10-13 13:17 | Outpatient (BNVA) | payer MEDICARE, OTHER, SELFPAY | PROVIDERS: PCP Internal Medicine; Visit Provider Internal Medicine | DX: J44.9 Chronic obstructive pulmonary disease, unspecified (principal); J96.90 Respiratory failure, unspecified, unspecified whether with hypoxia or hypercapnia | CPT/HCPCS: 99212 ==

== ENCOUNTER 2023-10-22 11:00 | Outpatient (REF) | payer MEDICARE, OTHER, SELFPAY ==
[2023-10-22 12:06] LABS: Blood Urea Nitrogen 53 mg/dL (9-16); Estimated Glomerular Filt Rate > 60
== END 2023-10-22 11:01 | disposition home or self-care (01) ==
LOC: HO.LNP 11:00
PROVIDERS: Visit Provider Internal Medicine
DX: R79.9 Abnormal finding of blood chemistry, unspecified (principal)
CPT/HCPCS: 82565; 84520

== ENCOUNTER → 2023-10-28 23:59 | Outpatient (BNV) | payer MEDICARE, OTHER, SELFPAY ==
--- NOTE | 2023-10-29 16:03 | A.OFFVIS_ITS ---
Intake Visit Reasons: Remote device check- Medtronic Allergies No Known Allergies [No Known Allergies*] Allergy (Verified 10/13/23 13:31) [facility] Medical History COPD (chronic obstructive pulmonary disease) Raynaud disease Anxiety Respiratory failure COPD (chronic obstructive pulmonary disease) Cardiac pacemaker in situ Bradycardia Malignant neoplasm of lateral wall of urinary bladder COPD (chronic obstructive pulmonary disease) Hyperlipidemia HTN (hypertension) Pulmonary hypertension (HFpEF) heart failure with preserved ejection fraction CAD (coronary artery disease) Chronic atrial fibrillation Surgical History History of placement of leadless cardiac pacemaker Stented coronary artery H/O transurethral resection of prostate History of prostate surgery History of back surgery History of appendectomy Family History Father Lung cancer Cancer Mother No problems noted. Social History Household Members: Spouse Housing: House Are you a primary career services director to a significant other at home: No Do you presently have visiting nurse or other home services: Yes (Visiting nurse [employer], PT [facility], Wound center on Thu) Alcohol intake: never Patient Tobacco Use Status: Former Tobacco user Quit Date: age 65 Second Hand Smoke Exposure: No Advance Directives Date on File: 09/17/21 service: Yes Current occupational status: retired Office Procedures Cardiac Device Check Cardiac Device Check Details: Remote pacemaker report generated 10/28/2023. Pacemaker function is adequate [id number] Cardiac Device Interrogation, pacemaker Procedure code (CPT) selection complete Assessment & Plan Assessment & Plan (1) Cardiac pacemaker in situ: Comment: Medtronic leadless pacemaker implanted on April 17 Code(s): Z95.0 - Presence of cardiac pacemaker Category: Medical Plan: See above Coding Level of Care Code Procedure Only Diagnoses Cardiac pacemaker in situ Z95.0 CPT Codes Cardiac Device Check - Cardiac Device 12: [id number] Cardiac Device Interrogation, pacemaker ([id number])
== END ==
PROVIDERS: PCP Internal Medicine; Visit Provider Internal Medicine Cardiovascular Disease
DX: Z45.018 Encounter for adjustment and management of other part of cardiac pacemaker (principal)
CPT/HCPCS: 93294

== ENCOUNTER 2023-11-03 13:00 | Outpatient (AMB) | payer MEDICARE, OTHER, SELFPAY ==
--- NOTE | 2023-11-03 13:08 | MHC.OFFVIS ---
Intake Visit Reasons: 6m/cysto Intake Note: Patient presents today for a CYSTOSCOPY Procedure: Urology Med: Bethanechol, Finasteride, Tamsulosin, Antibiotic Allergy: None Blood Thinner: Xarelto Urinalysis test clear for Cysto? YES Disposable Uro-G HD Cystoscope Cannula: Lot: [id number] Exp: 06/30/2026 Distribution Center Administrator Required: No Accompanied by: Self / Same As Patient Allergies No Known Allergies [No Known Allergies*] Allergy (Verified 11/03/23 13:08) Medication List - Last Reconciled 11/03/23 by Murray Watters MD albuterol sulfate 90 mcg/actuation 2 puffs inhalation Q6H PRN atorvastatin 20 mg PO DAILY bethanechol chloride 100 mg (2 x 50 mg) PO BID 90 days ferrous sulfate 325 mg PO DAILY finasteride 5 mg PO DAILY fluticasone propionate 50 mcg/actuation 1 spray intranasal DAILY lorazepam 0.5 mg PO DAILY PRN potassium chloride ER 20 mEq (2 x 10 mEq) PO DAILY rivaroxaban (Xarelto) 20 mg PO DAILY sacubitril-valsartan 24-26 mg (Entresto) 1 tab See Protocol PO BID tadalafil 5 mg PO DAILY 90 days tamsulosin 0.4 mg PO DAILY 90 days tiotropium-olodaterol 2.5-2.5 mcg/actuation (Stiolto Respimat) 2 puffs inhalation Q24H 30 days torsemide 20 mg PO TID HPI Comments Details: Duke is a very pleasant male. He is a patient of Dr. Trimble. He seen for the following urologic conditions - bladder cancer - neurogenic bladder - nonhealing also on left leg Cystoscopy normal - prostate defect - significant anterior tissue He feels he is emptying effectively with the current medication Feels has good emptying on combination bethanechol and tamsulosin Six month follow-up cystoscopy Neurogenic bladder Incomplete bladder emptying Prior laser of prostate Current medications include tamsulosin and bethanechol 50mg daily with good effect On significant number of diuretics April 2022 - PVR 400+ cc Discussed retention issues with Darien and his . Concerns regarding congestive heart failure. Bladder cancer 2018 low-grade bladder cancer, 09/17 fulgeration Initial diagnosis 2019 low-grade bladder cancer Follow-up cystoscopy 03/18 NAD, 10/17 small lesion on prostate, 10/19 trabeculation with cellules, 05/21 trabeculation with cellules Prior TURP Intervention - 09/17 TURBT fulgeration Cystoscopy 05/21 NAD, 11/19 NAD PFSH Medical History COPD (chronic obstructive pulmonary disease) Raynaud disease Anxiety Respiratory failure COPD (chronic obstructive pulmonary disease) Cardiac pacemaker in situ Bradycardia Malignant neoplasm of lateral wall of urinary bladder COPD (chronic obstructive pulmonary disease) Hyperlipidemia HTN (hypertension) Pulmonary hypertension (HFpEF) heart failure with preserved ejection fraction CAD (coronary artery disease) Chronic atrial fibrillation Surgical History History of placement of leadless cardiac pacemaker Stented coronary artery H/O transurethral resection of prostate History of prostate surgery History of back surgery History of appendectomy Family History Father Lung cancer Cancer Mother No problems noted. Social History Household Members: Spouse Housing: House Are you a primary patient care secretary to a significant other at home: No Do you presently have visiting nurse or other home services: Yes (Visiting nurse [employer], PT [facility], Wound center on Thu) Alcohol intake: never Patient Tobacco Use Status: Former Tobacco user Quit Date: age 65 Second Hand Smoke Exposure: No Advance Directives Date on File: 09/17/21 service: Yes Current occupational status: retired Review of Systems Const Denies chills and Denies fever(s) Card Reports no additional complaints and Denies syncope Resp Denies cough GI Denies abdominal pain and Denies heartburn Reports as per HPI and Denies change in libido Neuro Denies syncope Psych Denies change in libido Endo Denies change in libido Physical Exam Const General: cooperative, healthy appearing, comfortable and no acute distress Orientation/consciousness: patient oriented x3 HEENT Face and sinus: Yes normal facial exam Mouth: moist mucous membranes Neck Neck: Yes normal visual inspection, Yes full ROM and Yes trachea midline Chest Chest palpation & inspection: normal inspection of the chest Resp Effort & Inspection: normal respiratory effort, able to speak in complete sentences and no respiratory distress GI Inspection: Yes normal to inspection Back/Spine/Pelvis Cervical Spine: normal cervical lordosis Thoracic/Lumbar Spine: thoracic and lumbar spine normal to inspection Skin General skin exam: no rashes or lesions noted Neuro General: patient oriented x3, gait normal, tone normal and moves all extremities Extrem General: Yes normal to inspection and Yes capillary refill normal Office Procedures Cystoscopy Consent Discussed risk and benefit or proposed procedure with the patient. Information consent for procedure given to the patient. Discussed technical aspects, risks, benefits and alternatives in full. Addressed all of the patient's questions and concerns regarding the procedure. The patient demonstrated knowledge and understanding. They wish to proceed with this procedure. Preparation The patient was prepped in the usual manner. A astronaut mission specialist was present and in the room. Genitalia was prepped with betadine solution in a sterile manner. Lidocaine Jelly 2% was placed into the urethra and 16Fr flexible Olympus cystoscope was inserted into the meatus after adequate lubrication. Procedure Cystoscopy performed using a disposable Urovue digital 16 Hungarian cystoscope. Meatus uncircumcised Urethra anterior and posterior urethra normal Prostatic Urethra TURP defect with anterior tissue Bladder examination with retroflexion of cystoscope Bladder Orifices normal shape and position Bladder Capacity large Trabeculations grade 3 Cellule Formation yes Diverticulum Formation - Mucosal Erythema - Bladder Tumor scarring [id number] DISPOSABLE SCOPE URO-G FLEXIBLE SCOPE Procedure code (CPT) selection complete Office Meds lidocaine HCl 2 % mucosal jelly in applicator Performing Provider: Murray Watters MD Performing Location: [facility] [place] [facility] Administered by: Inder Nina LPN on 11/03/23 13:20 Dose Route Admin Location Dispensed Lot Number Expiration Date NDC Device Test Engineer 10 mL intra-urethral 10 mL nitrofurantoin monohydrate/macrocrystals 100 mg capsule Performing Provider: Murray Watters MD Performing Location: [facility] [place] [facility] Administered by: Inder Nina LPN on 11/03/23 13:20 Dose Route Admin Location Dispensed Lot Number Expiration Date NDC Device Test Engineer 100 mg PO 1 cap naproxen 500 mg tablet Performing Provider: Murray Watters MD Performing Location: [facility] [place] [facility] Administered by: Inder Nina LPN on 11/03/23 13:20 Dose Route Admin Location Dispensed Lot Number Expiration Date NDC Device Test Engineer 500 mg PO 1 tab Results AMB Urinalysis, Automated UA Leukoctes 0 Omega/uL Last Edit by Sol Talavera [facility] on 11/03/23 13:16 UA Nitrite Negative Last Edit by Sol Talavera [facility] on 11/03/23 13:16 UA Urobilinogen 0.2 mg/dL Last Edit by Sol Talavera [facility] on 11/03/23 13:16 UA Protein 0 mg/dL Last Edit by Sol Talavera [facility] on 11/03/23 13:16 UA pH 6.0 Last Edit by Sol Talavera [facility] on 11/03/23 13:16 UA Blood 0 Devendra/uL Last Edit by Sol Talavera [facility] on 11/03/23 13:16 UA Specific [place] 1.010 Last Edit by Sol Talavera [facility] on 11/03/23 13:16 UA Ketone Negative Last Edit by Sol Talavera [facility] on 11/03/23 13:16 UA Bilirubin 0 mg/dL Last Edit by Sol Talavera [facility] on 11/03/23 13:16 UA Glucose 0 mg/dL Last Edit by Sol Talavera [facility] on 11/03/23 13:16 Results Reviewed Results Reviewed: Laboratory Last Values Urine pH (Auto) 6.0 11/03/23 13:14 Specific [place] (Auto) 1.010 11/03/23 13:14 Urine Protein (Auto) 0 mg/dL 11/03/23 13:14 Glucose (UA)(Auto) 0 mg/dL 11/03/23 13:14 Urine Ketones (Auto) Negative 11/03/23 13:14 Urine Blood (Auto) 0 Devendra/uL 11/03/23 13:14 Urine Nitrite (Auto) Negative 11/03/23 13:14 Urine Bilirubin (Auto) 0 mg/dL 11/03/23 13:14 Urine Urobilinogen (Auto) 0.2 mg/dL 11/03/23 13:14 Leukocyte Esterase (Auto) 0 Omega/uL 11/03/23 13:14 Assessment & Plan Assessment & Plan (1) Urinary retention: Code(s): R33.9 - Retention of urine, unspecified Category: Medical (2) Bladder cancer: Comment: Low-grade bladder cancer recurrent Code(s): C67.9 - Malignant neoplasm of bladder, unspecified Category: Medical (3) BPH w urinary obs/LUTS: Comment: Laser enucleation of prostate Code(s): N40.1 - Benign prostatic hyperplasia with lower urinary tract symptoms; N13.8 - Other obstructive and reflux uropathy Category: Medical Plan Six-month follow-up cystoscopy Orders: Orders AMB Cystoscopy Today N13.8 - Other obstructive and reflux uropathy, N40.1 - Benign prostatic hyperplasia with lower urinary tract symptoms, R33.9 - Retention of urine, unspecified AMB Urinalysis Automated Today Z13.9 - Encounter for screening, unspecified Medications: Changed From bethanechol chloride 100 mg PO BID N39.0 - Urinary tract infection, site not specified, R33.9 - Retention of urine, unspecified To bethanechol chloride 100 mg (2 x 50 mg) PO BID 90 days 360 tabs 1RF N39.0 - Urinary tract infection, site not specified, R33.9 - Retention of urine, unspecified Refilled tamsulosin 0.4 mg PO DAILY 90 days 90 caps 1RF R33.9 - Retention of urine, unspecified Patient Instructions: Imaging studies, laboratory and physical exam results were discussed and reviewed in detail. No major barriers to patient understanding were identified. An opportunity to ask questions regarding the treatment plan was provided. All questions were answered. The patient expressed understanding and agreement with the above treatment plan. The patient is aware they should contact our office by phone for worsening of their current condition or the appearance of new urologic symptoms. Compliance is encouraged with any medications and followup testing that is ordered. It is a privilege to participate in the urologic care of your patient. If you have any questions or concerns regarding treatment for the above conditions, or other urologic issues, please do not hesitate to contact me. The office telephone contact is [phone]. This note is constructed using voice recognition software. While every effort has been made to ensure accuracy washer assembler errors may have been included. Yours sincerely, Dr Murray Watters MD, [facility] - Urology Providers of Expert, Compassionate Care for the Genitourinary System Coding Level of Care Code Est Pt Level 3 (17338) Diagnoses Urinary retention R33.9 Bladder cancer C67.9 BPH w urinary obs/LUTS N40.1; N13.8 CPT Codes Cystoscopy - CPT: 70136-[id number] ([id number])
== END 2023-11-03 13:54 | disposition home or self-care (01) ==
PROVIDERS: PCP Internal Medicine; Visit Provider Urology
DX: R33.9 Retention of urine, unspecified (principal); C67.9 Malignant neoplasm of bladder, unspecified; N40.1 Benign prostatic hyperplasia with lower urinary tract symptoms; N13.8 Other obstructive and reflux uropathy; Z13.9 Encounter for screening, unspecified
CPT/HCPCS: 52000; 99213

== ENCOUNTER → 2023-11-03 13:00 | Outpatient (BNVA) | payer MEDICARE, OTHER, SELFPAY | PROVIDERS: PCP Internal Medicine; Visit Provider Urology | DX: C67.9 Malignant neoplasm of bladder, unspecified (principal); N40.1 Benign prostatic hyperplasia with lower urinary tract symptoms; N13.8 Other obstructive and reflux uropathy; R33.8 Other retention of urine; N39.0 Urinary tract infection, site not specified; Z79.899 Other long term (current) drug therapy | CPT/HCPCS: 52000; 81003; 99212 ==

== ENCOUNTER 2023-11-16 13:02 | Outpatient (REF) | payer MEDICARE, OTHER, SELFPAY ==
[2023-11-16 13:40] LABS: Blood Urea Nitrogen 51 mg/dL (9-16); Estimated Glomerular Filt Rate 53
== END 2023-11-16 13:03 | disposition home or self-care (01) ==
LOC: HO.LNP 13:02
PROVIDERS: Visit Provider Internal Medicine
DX: I50.21 Acute systolic (congestive) heart failure (principal)
CPT/HCPCS: 82565; 84520

== ENCOUNTER 2023-12-15 13:53 | Outpatient (AMB) | payer MEDICARE, OTHER, SELFPAY ==
[2023-12-15 13:56] VITALS: BP 110/70; PULSE 63; BMI 21.2
--- NOTE | 2023-12-15 13:56 | MHC.OFFVIS ---
Vital Signs 12/15/23 13:56 Height 6 ft 1 in Weight 160 lb 14.999 oz BMI 21.2 BP 110/70 Blood Pressure Location Lt brachial Position Sitting Pulse 63 Intake Visit Reasons: 6 month follow up Intake Note: 6 month follow-up ekg and medtronic feeling Allergies No Known Allergies [No Known Allergies*] Allergy (Verified 11/03/23 13:08) Medication List - Last Reconciled 12/15/23 by Albert Cabrera MD albuterol sulfate 90 mcg/actuation 2 puffs inhalation Q6H PRN atorvastatin 20 mg PO DAILY bethanechol chloride 100 mg (2 x 50 mg) PO BID 90 days ferrous sulfate 325 mg PO DAILY finasteride 5 mg PO DAILY fluticasone propionate 50 mcg/actuation 1 spray intranasal DAILY lorazepam 0.5 mg PO DAILY PRN potassium chloride ER 20 mEq (2 x 10 mEq) PO DAILY rivaroxaban (Xarelto) 20 mg PO DAILY sacubitril-valsartan 24-26 mg (Entresto) 1 tab See Protocol PO BID tadalafil 5 mg PO DAILY 90 days tamsulosin 0.4 mg PO DAILY 90 days tiotropium-olodaterol 2.5-2.5 mcg/actuation (Stiolto Respimat) 2 puffs inhalation Q24H 30 days torsemide 20 mg PO TID HPI Comments Details: [facility] comes for follow-up. His he nonhealing ulcers have improved in the left lower extremity. His leg edema is improved. He is currently off metolazone therapy as he was getting symptoms of lightheadedness. No obvious low blood pressures recorded. He is currently participating physical therapy to improve his balance. He denies any orthopnea, PND, abdominal distension. Denies any palpitations. No syncopal episodes. His last echocardiogram had shown improved LV EF to 50-55% with RV dysfunction but elevated RV systolic pressure as well as right atrial filling pressures. Denies any anginal sounding chest discomfort. Taking all his medications. No major bleeding issues or neurologic events. [facility] Medical History COPD (chronic obstructive pulmonary disease) Raynaud disease Anxiety Respiratory failure COPD (chronic obstructive pulmonary disease) Cardiac pacemaker in situ Bradycardia Malignant neoplasm of lateral wall of urinary bladder COPD (chronic obstructive pulmonary disease) Hyperlipidemia HTN (hypertension) Pulmonary hypertension (HFpEF) heart failure with preserved ejection fraction CAD (coronary artery disease) Chronic atrial fibrillation Surgical History History of placement of leadless cardiac pacemaker Stented coronary artery H/O transurethral resection of prostate History of prostate surgery History of back surgery History of appendectomy Family History Father Lung cancer Cancer Mother No problems noted. Social History Household Members: Spouse Housing: House Are you a primary youth care professional to a significant other at home: No Do you presently have visiting nurse or other home services: Yes (Visiting nurse [employer], PT [facility], Wound center on Thu) Alcohol intake: never Patient Tobacco Use Status: Former Tobacco user Second Hand Smoke Exposure: No Advance Directives Date on File: 09/17/21 service: Yes Current occupational status: retired Review of Systems Const Denies chills, Denies fatigue, Denies fever(s), Denies frequent falls, Denies weakness, Denies weight gain and Denies weight loss ENT Denies dizziness Card Denies chest pain, Denies leg edema, Denies lightheadedness, Denies palpitations, Denies dyspnea, Denies dyspnea on exertion, Denies orthopnea and Denies other (loss of consciousness) Resp Denies cough, Denies dyspnea and Denies dyspnea on exertion GI Denies hematochezia and Denies change in stool character Musc Denies abnormal gait, Denies muscle weakness, Denies numbness, Denies radiating pain into limb and Denies tingling Neuro Denies abnormal gait, Denies dizziness, Denies frequent falls, Denies numbness, Denies tingling and Denies weakness Endo Denies fatigue and Denies palpitations Physical Exam Vital Signs: Last Vital Signs Pulse 63 12/15/23 13:56 BP 110/70 12/15/23 13:56 BMI result Body Mass Index 21.2 Const General: cooperative, comfortable, no acute distress, alert and awake Nutritional Appearance: thin, underweight and other (Frail elderly man) Orientation/consciousness: patient oriented x3 Limitations: no limitations Neck Neck: Yes trachea midline, Yes supple and Yes no JVD Resp Effort & Inspection: normal respiratory effort Auscultation: clear to auscultation bilaterally and diminished lung sounds Cardio Jugular venous distension: no JVD Palpation: abnormal PMI displaced PMI Rhythm: abnormal rhythm irregularly irregular Heart sounds: S1 normal heart sound present, S2 normal heart sound present, no click, no gallops and no murmurs GI Auscultation: normal bowel sounds Skin General skin exam: no rashes or lesions noted and ecchymosis Neuro General: patient oriented x3 and no focal motor deficits Extrem General: Yes no clubbing, cyanosis or edema Office Procedures Cardiac Device Check Cardiac Device Check Details: Leadless Medtronic pacemaker in place. Ventricular sensing is excellent. Pacing lead impedance is stable. Battery life is excellent. Pacing thresholds excellent. Ventricular pacing 85% of the time [id number] Cardiac Device Check, leadless/single lead pacemaker Procedure code (CPT) selection complete EKG Details: EKG shows ventricular paced rhythm with underlying atrial fibrillation 10072-[id number], Complete Assessment & Plan Assessment & Plan (1) Chronic atrial fibrillation: Code(s): I48.20 - Chronic atrial fibrillation, unspecified Category: Medical Plan: Chronic atrial fibrillation, rate controlled with test post pacemaker for bradycardia. Currently doing well from that perspective. No rate lowering medication as necessary. Continue full oral anticoagulation, currently on Xarelto 20 mg daily. Quarterly renal function test should be pursued. Not having any obvious significant bleeding issues related to Xarelto therapy. (2) Cardiac pacemaker in situ: Comment: Medtronic leadless pacemaker implanted on April 17 Code(s): Z95.0 - Presence of cardiac pacemaker Category: Medical Plan: Cardiac pacemaker in-situ, working well. Reprogrammed for adequate function. Will follow remotely every 3 months and follow up in the clinic in 6 months time. (3) CAD (coronary artery disease): Code(s): I25.10 - Atherosclerotic heart disease of [place] coronary artery without angina pectoris Category: Medical Plan: CAD with prior circumflex stenting. Currently no anginal sounding chest discomfort and no limitations with exercise activity. Has more limitations related to musculoskeletal issues. Continue statin therapy. Currently on full oral anticoagulation with Xarelto and therefore would avoid aspirin therapy to reduce bleeding risk. (4) Congestive heart failure: Comment: SEEMS TO BE UNDER GOOD CONTROL . BEING FOLLOWED BY CARDIOLOGY . Code(s): I50.9 - Heart failure, unspecified Category: Medical Plan: Heart failure with prior significantly reduced LV ejection fraction which has improved with LVEF of 50-55% predominantly with right heart failure syndrome at this point time related to underlying severe COPD. He does have significant right atrial filling pressures although clinically does appear to be significantly fluid overloaded on current diuretic dose. Signs and symptoms of heart failure were discussed. Daily weight monitoring avoidance of salt loading was discussed. Additional use of metolazone as needed was discussed. Continue treat ischemia. Continue rate control approach as above. He does have symptoms of lightheadedness which are not clear if related to low blood pressure. Advised to monitor blood pressure at home. Currently blood pressure on today's exam appears to be stable. If he is significant low blood pressure she was may need to alter his Entresto therapy. Follow up in the clinic in 6 months time, sooner p.r.n.. Thank you for allowing me to partake in his care Coding Level of Care Code Est Pt Level 4 (92483) Diagnoses Chronic atrial fibrillation I48.20 Cardiac pacemaker in situ Z95.0 CAD (coronary artery disease) I25.10 Congestive heart failure I50.9 CPT Codes Cardiac Device Check - Cardiac Device 1: [id number] Cardiac Device Check, leadless/single lead pacemaker ([id number]) EKG - CPT: 51370-[id number], Complete ([id number])
== END 2023-12-15 14:32 | disposition home or self-care (01) ==
PROVIDERS: PCP Internal Medicine; Visit Provider Internal Medicine Cardiovascular Disease
DX: I48.20 Chronic atrial fibrillation, unspecified (principal); Z95.0 Presence of cardiac pacemaker; I25.10 Atherosclerotic heart disease of native coronary artery without angina pectoris; I50.9 Heart failure, unspecified; Z95.5 Presence of coronary angioplasty implant and graft
CPT/HCPCS: 93010; 93279; 99214

== ENCOUNTER → 2023-12-15 13:53 | Outpatient (BNVA) | payer MEDICARE, OTHER, SELFPAY | PROVIDERS: PCP Internal Medicine; Visit Provider Internal Medicine Cardiovascular Disease | DX: I48.20 Chronic atrial fibrillation, unspecified (principal); I50.9 Heart failure, unspecified; I25.10 Atherosclerotic heart disease of native coronary artery without angina pectoris; Z79.01 Long term (current) use of anticoagulants; Z45.018 Encounter for adjustment and management of other part of cardiac pacemaker | CPT/HCPCS: 93005; 99212 ==

== ENCOUNTER 2023-12-17 11:00 | Outpatient (AMB) | payer MEDICARE, OTHER, SELFPAY ==
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
[2023-12-17 11:08] VITALS: BP 154/66; PULSE 76; BMI 20.6
== END 2023-12-17 12:07 | disposition home or self-care (01) ==
PROVIDERS: PCP Internal Medicine; Referring Provider Internal Medicine; Visit Provider Surgery
DX: K40.90 Unilateral inguinal hernia, without obstruction or gangrene, not specified as recurrent (principal)
CPT/HCPCS: 99204

== ENCOUNTER → 2023-12-17 11:00 | Outpatient (BNVA) | payer MEDICARE, OTHER, SELFPAY | PROVIDERS: PCP Internal Medicine; Referring Provider Internal Medicine; Visit Provider Surgery | DX: K40.90 Unilateral inguinal hernia, without obstruction or gangrene, not specified as recurrent (principal) | CPT/HCPCS: 99202 ==

== ENCOUNTER 2024-01-04 13:40 | Outpatient (AMB) | payer MEDICARE, OTHER, SELFPAY ==
--- NOTE | 2024-01-04 13:47 | MHC.OFFVIS ---
Vital Signs 01/04/24 13:48 Height 6 ft 1 in Weight 158 lb 0.7 oz BMI 20.8 BP 102/54 L Blood Pressure Location Lt brachial Position Sitting Pulse 90 Pulse Source Pulse Oximeter Pulse Oximetry (%) 94 Oxygen Delivery Method Room Air Intake Visit Reasons: COPD Intake Note: pt is here for follow up and states he is feeling good, using cpap and incentive spirometer every night. Ornament Setter Required: No Allergies No Known Allergies [No Known Allergies*] Allergy (Verified 01/04/24 13:54) Medication List - Last Reconciled 01/04/24 by Dawn Vila MD albuterol sulfate 90 mcg/actuation 2 puffs inhalation Q6H PRN atorvastatin 20 mg PO DAILY bethanechol chloride 100 mg (2 x 50 mg) PO BID 90 days ferrous sulfate 325 mg PO DAILY finasteride 5 mg PO DAILY fluticasone propionate 50 mcg/actuation 1 spray intranasal DAILY potassium chloride ER 20 mEq (2 x 10 mEq) PO DAILY rivaroxaban (Xarelto) 20 mg PO DAILY sacubitril-valsartan 24-26 mg (Entresto) 1 tab See Protocol PO BID tadalafil 5 mg PO DAILY 90 days tamsulosin 0.4 mg PO DAILY 90 days tiotropium-olodaterol 2.5-2.5 mcg/actuation (Stiolto Respimat) 2 puffs inhalation Q24H 30 days torsemide 20 mg PO TID Do you need a note to return to daycare/school/sports/work: No HPI HPI COPD: Details: THIS 88 YEARS OLD GENTLEMAN IS HERE FOR HIS ROUTINE FOLLOW-UP AFTER 4 MONTHS. HIS BREATHING STATUS REMAINS VERY STABLE, AND LUCKILY HE HAS HAD NO ACUTE RESPIRATORY INFECTION OR EXACERBATION. CONTINUES TO USE HIS INHALER STIOLTO RESPIMAT 2 PUFFS EVERY DAY HE NEEDS TO USE ALBUTEROL ONLY ONCE IN A WHILE. HE ALSO USES BIPAP WITH PRESSURE SETTING OF 14/7 CM . COMPLIANCE IS EXCELLENT AND HE USES UP TO 6-1/2 HOURS EVERY NIGHT. HE CLAIMS THAT HE SLEEPS GOOD. HE IS USING FULLFACE MASK WHICH IS COME MORE COMFORTABLE THAN BEFORE. [facility] Medical History COPD (chronic obstructive pulmonary disease) Raynaud disease Anxiety Respiratory failure COPD (chronic obstructive pulmonary disease) Cardiac pacemaker in situ Bradycardia Malignant neoplasm of lateral wall of urinary bladder COPD (chronic obstructive pulmonary disease) Hyperlipidemia HTN (hypertension) Pulmonary hypertension (HFpEF) heart failure with preserved ejection fraction CAD (coronary artery disease) Chronic atrial fibrillation Surgical History History of placement of leadless cardiac pacemaker Stented coronary artery H/O transurethral resection of prostate History of prostate surgery History of back surgery History of appendectomy Family History Father Lung cancer Cancer Mother No problems noted. Social History Household Members: Spouse Housing: House Are you a primary physician primary care sports medicine to a significant other at home: No Do you presently have visiting nurse or other home services: Yes (Visiting nurse [employer], PT [facility], Wound center on Thu) Alcohol intake: never Patient Tobacco Use Status: Former Tobacco user Second Hand Smoke Exposure: No Advance Directives Date on File: 09/17/21 service: Yes Current occupational status: retired Review of Systems Const Reports fatigue, Reports lethargy and Reports weakness Eyes Reports no additional complaints ENT Reports no additional complaints Card Denies chest pain, Reports irregular heart rhythm, Reports leg edema and Reports dyspnea (Even at rest) Resp Reports as per HPI and Reports dyspnea (Even at rest) GI Reports no additional complaints Reports hematuria (Off and on) and Reports urinary incontinence Musc Reports abnormal gait (Much impaired, mostly in wheelchair) and Reports muscle weakness Skin/Breast Reports system reviewed and no additional complaints, except as documented Neuro Reports abnormal gait (Much impaired, mostly in wheelchair) and Reports weakness Psych Reports anxiety Endo Reports fatigue Physical Exam Vital Signs: Last Vital Signs Pulse 90 01/04/24 13:48 BP 102/54 L 01/04/24 13:48 Pulse Ox 94 01/04/24 13:48 Oxygen Delivery Method Room Air 01/04/24 13:48 BMI result Body Mass Index 20.8 Const General: no acute distress (But very anxious and states that he cannot catch his breath), alert and awake Orientation/consciousness: patient oriented x3 HEENT Head: Yes normal to inspection General nose exam: No nasal polyps present and No nasal discharge present Face and sinus: Yes sinuses nontender Mouth: oropharynx normal Throat: Yes posterior oropharynx normal Eyes General: appearance normal, both eyes and all related structures Neck Neck: Yes normal visual inspection, Yes no lymphadenopathy, Yes trachea midline and Yes no JVD Thyroid: Thyroid normal Chest Chest palpation & inspection: normal inspection of the chest, normal palpation of entire chest wall and no tenderness Resp Other: Percussion note resonant, breath sounds are very distant with prolonged expiratory phase. No wheezes, or creps. o2 SAT= 96 % Cardio Rhythm: abnormal rhythm (Atrial fib) Heart sounds: no gallops and no murmurs GI Palpation (GI): Soft to palpation, nontender, No hepatosplenomegaly present and no masses Auscultation: normal bowel sounds Back/Spine/Pelvis Thoracic/Lumbar Spine: thoracic and lumbar spine normal to inspection and thoraco-lumbar ROM limited Skin General skin exam: no rashes or lesions noted Neuro General: patient oriented x3, No gait normal (Non ambulatory, in wheelchair) and no focal motor deficits Cranial nerves: Yes CN's II-XII intact bilaterally Extrem General: Yes normal to inspection, Yes no calf tenderness and Yes edema (Chronic stasis type edema of the legs, not much at this time.) Right upper extremity: Extremity exam: right hand (Both hands are cold with purplish discoloration of the fingernails) Psych Speech and movement: Normal speech and movement present Affect: Anxious affect present Results Reviewed Results Reviewed: COMPLIANCE REPORT IS REVIEWED. HE HAS USED 30/30 NIGHTS,. 100% OF THE TIME AVERAGE USE IT PER NIGHT 6 HOURS 22 MINUTES. HE STILL HAS SIGNIFICANT RESIDUAL AHI, 29.6, THIS IS DUE TO SIGNIFICANT RESIDUAL OBSTRUCTIVE AND CENTRAL APNEAS. Assessment & Plan Assessment & Plan (1) COPD (chronic obstructive pulmonary disease): Comment: THIS GENTLEMAN DOES HAVE RATHER SEVERE OBSTRUCTIVE AIRWAY DISORDER. IT IS REMAINING STABLE WITH CURRENT MEDICAL REGIMEN. He is using Stiolto 2 puffs daily, as well as albuterol HFA 2 puffs Q 4-6 hours p.r.n. Code(s): J44.9 - Chronic obstructive pulmonary disease, unspecified Category: Medical Plan: Continue the same med, STIOLTO RESPIMAT 2 INHALATIONS DAILY, AND ALBUTEROL HFA 2 PUFFS Q 4-6 HOURS P.R.N. (2) Anxiety: Comment: PATIENT DOES HAVE HISTORY OF ANXIETY IN THE PAST HE IS VERY CALM AND QUIET AT THIS TIME, DOES NOT NEED TO USE ANY ANXIOLYTIC AGENT.. Code(s): F41.9 - Anxiety disorder, unspecified Category: Medical Plan: NO NEED OF USING ANXIOLYTIC MED (3) Respiratory failure: Comment: Patient has past history of respiratory failure , and has been treated with BiPAP 14/7 cm. He had stopped using the BiPAP. And thus was prescribed only O2 supplementation at night. However he gave up on using oxygen and went back to using BiPAP. He claims that since he is using BiPAP regularly he feels better. Daytime O2 sats are normal. Code(s): J96.90 - Respiratory failure, unspecified, unspecified whether with hypoxia or hypercapnia Category: Medical Plan: Advised to continue use of BiPAP at night. Do deep breathing exercises 2 or 3 times a day during the day. Coding Level of Care Code Est Pt Level 3 (17598) Diagnoses COPD (chronic obstructive pulmonary disease) J44.9 Anxiety F41.9 Respiratory failure J96.90
[2024-01-04 13:48] VITALS: BP 102/54; PULSE 90; O2SAT 94; BMI 20.8
== END 2024-01-04 14:19 | disposition home or self-care (01) ==
PROVIDERS: PCP Internal Medicine; Visit Provider Internal Medicine
DX: J44.9 Chronic obstructive pulmonary disease, unspecified (principal); F41.9 Anxiety disorder, unspecified; J96.90 Respiratory failure, unspecified, unspecified whether with hypoxia or hypercapnia
CPT/HCPCS: 99213

== ENCOUNTER → 2024-01-04 13:40 | Outpatient (BNVA) | payer MEDICARE, OTHER, SELFPAY | PROVIDERS: PCP Internal Medicine; Visit Provider Internal Medicine | DX: J44.9 Chronic obstructive pulmonary disease, unspecified (principal); J96.90 Respiratory failure, unspecified, unspecified whether with hypoxia or hypercapnia; F41.9 Anxiety disorder, unspecified | CPT/HCPCS: 99212 ==

== ENCOUNTER 2024-01-14 13:13 | Outpatient (REF) | payer MEDICARE, OTHER, SELFPAY ==
[2024-01-14 13:35] LABS: Alanine Aminotransferase 7 U/L (0-40); Albumin Level 4.3 g/dL (3.5-5.0); Alkaline Phosphatase 68 U/L (39-117); Aspartate Amino Transferase 19 U/L (5-37); Bilirubin Direct 0.3 mg/dL (0.0-0.5); Bilirubin Total 0.7 mg/dL (0.0-1.0); Blood Urea Nitrogen 38 mg/dL (9-16); Cholesterol 97 mg/dL (<200); Estimated Glomerular Filt Rate > 60; HDL Cholesterol 47 mg/dL (>40); LDL Cholesterol Calculated 36 mg/dL (<100); Total Protein 7.3 g/dL (6.5-8.0); Triglycerides 71 mg/dL (<150)
[2024-01-14 14:03] LABS: Reflex LDLD? No
== END 2024-01-14 13:14 | disposition home or self-care (01) ==
LOC: HO.LNP 13:13
PROVIDERS: Visit Provider Internal Medicine
DX: E78.00 Pure hypercholesterolemia, unspecified (principal); R79.9 Abnormal finding of blood chemistry, unspecified
CPT/HCPCS: 80061; 80076; 82565; 84520

== ENCOUNTER → 2024-01-28 23:59 | Outpatient (BNV) | payer MEDICARE, OTHER, SELFPAY ==
--- NOTE | 2024-02-01 16:53 | MHC.OFFVIS ---
Intake Visit Reasons: Remote device check- Medtronic Allergies No Known Allergies [No Known Allergies*] Allergy (Verified 01/04/24 13:54) [facility] Medical History COPD (chronic obstructive pulmonary disease) Raynaud disease Anxiety Respiratory failure COPD (chronic obstructive pulmonary disease) Cardiac pacemaker in situ Bradycardia Malignant neoplasm of lateral wall of urinary bladder COPD (chronic obstructive pulmonary disease) Hyperlipidemia HTN (hypertension) Pulmonary hypertension (HFpEF) heart failure with preserved ejection fraction CAD (coronary artery disease) Chronic atrial fibrillation Surgical History History of placement of leadless cardiac pacemaker Stented coronary artery H/O transurethral resection of prostate History of prostate surgery History of back surgery History of appendectomy Family History Father Lung cancer Cancer Mother No problems noted. Social History Household Members: Spouse Housing: House Are you a primary animal care service worker to a significant other at home: No Do you presently have visiting nurse or other home services: Yes (Visiting nurse [employer], PT [facility], Wound center on Thu) Alcohol intake: never Patient Tobacco Use Status: Former Tobacco user Second Hand Smoke Exposure: No Advance Directives Date on File: 09/17/21 service: Yes Current occupational status: retired Office Procedures Cardiac Device Check Cardiac Device Check Details: Remote pacemaker report generated 01/28/2024. Pacemaker function is adequate [id number] Cardiac Device Interrogation, pacemaker Procedure code (CPT) selection complete Assessment & Plan Assessment & Plan (1) Cardiac pacemaker in situ: Comment: Medtronic leadless pacemaker implanted on April 17 Code(s): Z95.0 - Presence of cardiac pacemaker Category: Medical Plan: See above Coding Level of Care Code Procedure Only Diagnoses Cardiac pacemaker in situ Z95.0 CPT Codes Cardiac Device Check - Cardiac Device 12: [id number] Cardiac Device Interrogation, pacemaker ([id number])
== END ==
PROVIDERS: PCP Internal Medicine; Visit Provider Internal Medicine Cardiovascular Disease
DX: Z45.018 Encounter for adjustment and management of other part of cardiac pacemaker (principal)
CPT/HCPCS: 93294

== ENCOUNTER 2024-02-19 14:34 | Outpatient (REF) | payer MEDICARE, OTHER, SELFPAY ==
--- NOTE | ~2024-02-19 | CT_ITS ---
EXAMINATION: CT CHEST WITHOUT CONTRAST CLINICAL INFORMATION: Pulmonary nodule. COMPARISON: CT chest examinations, most recently 02/24/2023. TECHNIQUE: Multidetector volumetric CT imaging of the chest was done. Axial MIP volume rendering provided. Sagittal and coronal reformatted images were obtained. This CT examination was performed using dose optimization techniques as appropriate, variously including the following: *Automated exposure control *Adjustment of mA and/or kV according to patient size (this includes techniques or standardized protocols for targeted exams where dose is matched to indication/reason for exam; i.e. 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 LUNGS: There are small benign, calcified right lung granulomas. At the lateral right base (5.470), a 5 mm noncalcified nodule is newly seen. A benign, calcified granuloma is seen at the lateral right base. At the medial left base (5:287), a stable (upon remeasurement) 9 mm noncalcified nodule is seen. At the posterior right base (5:424), a stable 2 mm noncalcified nodule is seen. There is no mass, infiltrate or ground glass opacity. There are moderately severe centrilobular emphysematous changes. No generalized small airway thickening is seen. The central airways appear patent. MEDIASTINUM: The thyroid is unremarkable. There is no thoracic aortic aneurysm. There are moderate atherosclerotic calcifications of the great vessel origins and thoracic aorta. No mediastinal or hilar lymphadenopathy is seen. CORONARY ARTERY CALCIFICATION: Marked. PLEURA: There is no pleural effusion. No pleural mass or thickening. AXILLA: No lymphadenopathy. There is very mild bilateral gynecomastia. UPPER ABDOMEN: Unremarkable. OSSEOUS STRUCTURES: There is multi-level lower cervical, thoracic and upper lumbar degenerative disease and endplate arthropathy. There is an old, healed lateral right 10th rib fracture. No acute or aggressive osseous body is seen. CT/CT chest wo IV con IMPRESSION: 1. There are bilateral calcified and noncalcified pulmonary nodules, including a new 5 mm nodule at the lateral right base. According to the UPDATED 2017 Fleischner Society recommendations, the advised follow-up imaging for solid nodules < 6 mm is: LOW RISK PATIENT: No routine follow-up. HIGH RISK PATIENT: Optional CT at 12 months. 2. No mass, infiltrate or groundglass opacity is seen. 3. There are moderately severe emphysematous changes. 4. There are marked coronary artery atherosclerotic calcifications. 5. There are degenerative changes of the spine. No aggressive osseous lesion is seen. Fleischner guidelines were followed. Electronically signed by: Genaro Clarke MD 03/14/2024 12:28 PM EDT RP
== END 2024-02-19 14:35 | disposition home or self-care (01) ==
LOC: HO.CT 14:34
PROVIDERS: PCP Internal Medicine; Visit Provider Internal Medicine
DX: R91.1 Solitary pulmonary nodule (principal)
CPT/HCPCS: 71250

== ENCOUNTER 2024-04-18 14:04 | Outpatient (AMB) | payer MEDICARE, OTHER, SELFPAY ==
[2024-04-18 14:15] VITALS: BP 124/50; PULSE 75; O2SAT 98; BMI 21.1
--- NOTE | 2024-04-18 14:15 | MHC.OFFVIS ---
Vital Signs 04/18/24 14:15 Height 6 ft 1 in Weight 160 lb BMI 21.1 BP 124/50 L Blood Pressure Location Lt brachial Position Sitting Pulse 75 Pulse Source Pulse Oximeter Pulse Oximetry (%) 98 Oxygen Delivery Method Room Air Intake Visit Reasons: COPD Intake Note: pt is here for follow up and states he is using cpap every night, and still short of breath but he rests and it comes back. Steam Shovel Oiler Required: No Allergies No Known Allergies [No Known Allergies*] Allergy (Verified 04/18/24 14:25) Medication List - Last Reconciled 04/18/24 by Dawn Vila MD albuterol sulfate 90 mcg/actuation 2 puffs inhalation Q6H PRN atorvastatin 20 mg PO DAILY bethanechol chloride 100 mg (2 x 50 mg) PO BID 90 days ferrous sulfate 325 mg PO DAILY finasteride 5 mg PO DAILY fluticasone propionate 50 mcg/actuation 1 spray intranasal DAILY potassium chloride ER 20 mEq (2 x 10 mEq) PO DAILY rivaroxaban (Xarelto) 20 mg PO DAILY sacubitril-valsartan 24-26 mg (Entresto) 1 tab See Protocol PO BID tadalafil 5 mg PO DAILY 90 days tamsulosin 0.4 mg PO DAILY 90 days tiotropium-olodaterol 2.5-2.5 mcg/actuation (Stiolto Respimat) 2 puffs inhalation Q24H 30 days torsemide 20 mg PO TID Do you need a note to return to daycare/school/sports/work: No HPI HPI COPD: Details: ADAMS IS 88 YEARS OLD GENTLEMAN, WHO DOES HAVE COPD MODERATELY SEVERE, AND ALSO CHRONIC RESPIRATORY FAILURE. HE IS USING BIPAP AT NIGHT VERY REGULARLY AND SLEEPS GOOD. HE USES STIOLTO RESPIMAT 2 INHALATIONS DAILY IN THE MORNING AND RESPIRATORY STATUS REMAINS WELL CONTROLLED. HE DOES HAVE ALBUTEROL ON HAND BUT HARDLY NEEDS TO USE IT. HIS ONLY COMPLAINT IS THAT HE IS SOMEWHAT WEAKER THAN USUAL AND GETS SHORT OF BREATH IF HE WALKS 1 OR 2 BLOCKS, BUT THAT IS UNDERSTOOD AND EXPECTED. LUCKILY HE HAS HAD NO RESPIRATORY INFECTION. [facility] Medical History COPD (chronic obstructive pulmonary disease) Raynaud disease Anxiety Respiratory failure COPD (chronic obstructive pulmonary disease) Cardiac pacemaker in situ Bradycardia Malignant neoplasm of lateral wall of urinary bladder COPD (chronic obstructive pulmonary disease) Hyperlipidemia HTN (hypertension) Pulmonary hypertension (HFpEF) heart failure with preserved ejection fraction CAD (coronary artery disease) Chronic atrial fibrillation Surgical History History of placement of leadless cardiac pacemaker Stented coronary artery H/O transurethral resection of prostate History of prostate surgery History of back surgery History of appendectomy Family History Father Lung cancer Cancer Mother No problems noted. Social History Household Members: Spouse Housing: House Are you a primary career guidance technician to a significant other at home: No Do you presently have visiting nurse or other home services: Yes (Visiting nurse [employer], PT [facility], Wound center on Thu) Alcohol intake: never Patient Tobacco Use Status: Former Tobacco user Second Hand Smoke Exposure: No Advance Directives Date on File: 09/17/21 service: Yes Current occupational status: retired Review of Systems Const Reports fatigue, Reports lethargy and Reports weakness Eyes Reports no additional complaints ENT Reports no additional complaints Card Denies chest pain, Reports irregular heart rhythm, Reports leg edema and Reports dyspnea (Even at rest) Resp Reports as per HPI and Reports dyspnea (Even at rest) GI Reports no additional complaints Reports hematuria (Off and on) and Reports urinary incontinence Musc Reports abnormal gait (Much impaired, mostly in wheelchair) and Reports muscle weakness Skin/Breast Reports system reviewed and no additional complaints, except as documented Neuro Reports abnormal gait (Much impaired, mostly in wheelchair) and Reports weakness Psych Reports anxiety Endo Reports fatigue Physical Exam Vital Signs: Last Vital Signs Pulse 75 04/18/24 14:15 BP 124/50 L 04/18/24 14:15 Pulse Ox 98 04/18/24 14:15 Oxygen Delivery Method Room Air 04/18/24 14:15 BMI result Body Mass Index 21.1 Const General: no acute distress (But very anxious and states that he cannot catch his breath), alert and awake Orientation/consciousness: patient oriented x3 HEENT Head: Yes normal to inspection General nose exam: No nasal polyps present and No nasal discharge present Face and sinus: Yes sinuses nontender Mouth: oropharynx normal Throat: Yes posterior oropharynx normal Eyes General: appearance normal, both eyes and all related structures Neck Neck: Yes normal visual inspection, Yes no lymphadenopathy, Yes trachea midline and Yes no JVD Thyroid: Thyroid normal Chest Chest palpation & inspection: normal inspection of the chest, normal palpation of entire chest wall and no tenderness Resp Other: Percussion note resonant, breath sounds are very distant with prolonged expiratory phase. No wheezes, or creps. o2 SAT= 96 % Cardio Rhythm: abnormal rhythm (Atrial fib) Heart sounds: no gallops and no murmurs GI Palpation (GI): Soft to palpation, nontender, No hepatosplenomegaly present and no masses Auscultation: normal bowel sounds Back/Spine/Pelvis Thoracic/Lumbar Spine: thoracic and lumbar spine normal to inspection and thoraco-lumbar ROM limited Skin General skin exam: no rashes or lesions noted Neuro General: patient oriented x3, No gait normal (Non ambulatory, in wheelchair) and no focal motor deficits Cranial nerves: Yes CN's II-XII intact bilaterally Extrem General: Yes normal to inspection, Yes no calf tenderness and Yes edema (Chronic stasis type edema of the legs, not much at this time.) Right upper extremity: Extremity exam: right hand (Both hands are cold with purplish discoloration of the fingernails) Psych Speech and movement: Normal speech and movement present Affect: Anxious affect present Assessment & Plan Assessment & Plan (1) COPD (chronic obstructive pulmonary disease): Comment: THIS GENTLEMAN DOES HAVE RATHER SEVERE OBSTRUCTIVE AIRWAY DISORDER. IT IS REMAINING STABLE WITH CURRENT MEDICAL REGIMEN. Code(s): J44.9 - Chronic obstructive pulmonary disease, unspecified Category: Medical Plan: STIOLTO RESPIMAT , 2 INHALATIONS DAILY. IN THE MORNING ALBUTEROL HFA 2 PUFFS Q 4-6 HOURS P.R.N. (2) Respiratory failure: Comment: Patient has past history of respiratory failure , and has been treated with BiPAP 14/7 cm. He had stopped using the BiPAP. And thus was prescribed only O2 supplementation at night. However he gave up on using oxygen and went back to using BiPAP. He claims that since he is using BiPAP regularly he feels better., and he sleeping well. Daytime O2 sats are normal. Code(s): J96.90 - Respiratory failure, unspecified, unspecified whether with hypoxia or hypercapnia Category: Medical Plan: Continue using BiPAP every night. (3) Congestive heart failure: Comment: CHRONIC CARDIOMYOPATHY AND CONGESTIVE HEART FAILURE , SEEMS TO BE UNDER GOOD CONTROL . BEING FOLLOWED BY CARDIOLOGY . Code(s): I50.9 - Heart failure, unspecified Category: Medical Plan: CONTINUE REGULAR FOLLOW-UP WITH CARDIOLOGY SERVICE Coding Level of Care Code Est Pt Level 3 (91460) Diagnoses COPD (chronic obstructive pulmonary disease) J44.9 Respiratory failure J96.90 Congestive heart failure I50.9
== END 2024-04-18 14:32 | disposition home or self-care (01) ==
PROVIDERS: PCP Internal Medicine; Visit Provider Internal Medicine
DX: J44.9 Chronic obstructive pulmonary disease, unspecified (principal); J96.90 Respiratory failure, unspecified, unspecified whether with hypoxia or hypercapnia; I50.9 Heart failure, unspecified
CPT/HCPCS: 99213

== ENCOUNTER → 2024-04-18 14:04 | Outpatient (BNVA) | payer MEDICARE, OTHER, SELFPAY | PROVIDERS: PCP Internal Medicine; Visit Provider Internal Medicine | DX: J44.9 Chronic obstructive pulmonary disease, unspecified (principal); J96.90 Respiratory failure, unspecified, unspecified whether with hypoxia or hypercapnia; I50.9 Heart failure, unspecified | CPT/HCPCS: 99212 ==

== ENCOUNTER → 2024-04-29 23:59 | Outpatient (BNV) | payer MEDICARE, OTHER, SELFPAY ==
--- NOTE | 2024-05-03 10:48 | A.OFFVIS_ITS ---
Intake Visit Reasons: Remote device check- Medtronic Allergies No Known Allergies [No Known Allergies*] Allergy (Verified 04/18/24 14:25) [facility] Medical History COPD (chronic obstructive pulmonary disease) Raynaud disease Anxiety Respiratory failure COPD (chronic obstructive pulmonary disease) Cardiac pacemaker in situ Bradycardia Malignant neoplasm of lateral wall of urinary bladder COPD (chronic obstructive pulmonary disease) Hyperlipidemia HTN (hypertension) Pulmonary hypertension (HFpEF) heart failure with preserved ejection fraction CAD (coronary artery disease) Chronic atrial fibrillation Surgical History History of placement of leadless cardiac pacemaker Stented coronary artery H/O transurethral resection of prostate History of prostate surgery History of back surgery History of appendectomy Family History Father Lung cancer Cancer Mother No problems noted. Social History Household Members: Spouse Housing: House Are you a primary director of primary care to a significant other at home: No Do you presently have visiting nurse or other home services: Yes (Visiting nurse [employer], PT [facility], Wound center on Thu) Alcohol intake: never Patient Tobacco Use Status: Former Tobacco user Second Hand Smoke Exposure: No Advance Directives Date on File: 09/17/21 service: Yes Current occupational status: retired Office Procedures Cardiac Device Check Cardiac Device Check Details: Remote pacemaker report generated 04/29/2024. Pacemaker function is adequate [id number] Cardiac Device Interrogation, pacemaker Procedure code (CPT) selection complete Assessment & Plan Assessment & Plan (1) Cardiac pacemaker in situ: Comment: Medtronic leadless pacemaker implanted on April 17 Code(s): Z95.0 - Presence of cardiac pacemaker Category: Medical Plan: See above Coding Level of Care Code Procedure Only Diagnoses Cardiac pacemaker in situ Z95.0 CPT Codes Cardiac Device Check - Cardiac Device 12: [id number] Cardiac Device Interrogation, pacemaker ([id number])
== END ==
PROVIDERS: PCP Internal Medicine; Visit Provider Internal Medicine Cardiovascular Disease
DX: Z45.018 Encounter for adjustment and management of other part of cardiac pacemaker (principal)
CPT/HCPCS: 93294

== ENCOUNTER 2024-05-06 13:02 | Outpatient (REF) | payer MEDICARE, OTHER, SELFPAY ==
[2024-05-06 16:55] LABS: Urine Cytology See Pathology rpt
== END 2024-05-06 13:03 | disposition home or self-care (01) ==
LOC: HO.LAB 13:02
PROVIDERS: PCP Internal Medicine; Visit Provider Urology
DX: C67.9 Malignant neoplasm of bladder, unspecified (principal); N40.1 Benign prostatic hyperplasia with lower urinary tract symptoms; N13.8 Other obstructive and reflux uropathy; R33.9 Retention of urine, unspecified
CPT/HCPCS: 52000; 81003; 88112; 99212

== ENCOUNTER 2024-05-06 13:02 | Outpatient (AMB) | payer MEDICARE, OTHER, SELFPAY ==
--- NOTE | 2024-05-06 13:05 | MHC.OFFVIS ---
Intake Visit Reasons: 6M Cystoscopy(Bladder Ca) Intake Note: Patient is Present for Cystoscopy Urology Med: Finasteride, Tadalafil. Tamsulosin, bethanechol Antibiotic Allergy:None Blood Thinner: Xarelto No Recent FISH Cytology Last Cytology 2022 Patient was unable to void today URO- G Disposable Cystoscope lot: [id number] exp:07/30/2026 Sight Mounter Required: No Accompanied by: Self / Same As Patient Allergies No Known Allergies [No Known Allergies*] Allergy (Verified 05/06/24 13:14) HPI Comments Details: Duke is a very pleasant male. He is a patient of Dr. Trimble. He seen for the following urologic conditions - bladder cancer - neurogenic bladder - nonhealing also on left leg Cystoscopy normal - prostate defect - significant anterior tissue He feels he is emptying effectively with the current medication Feels has continued effective emptying on combination bethanechol and tamsulosin Six month follow-up cystoscopy Neurogenic bladder Incomplete bladder emptying Prior laser of prostate Current medications include tamsulosin and bethanechol 50mg daily with good effect On significant number of diuretics April 2022 - PVR 400+ cc Discussed retention issues with Darien and his . Concerns regarding congestive heart failure. Bladder cancer 2018 low-grade bladder cancer, 09/17 fulgeration Initial diagnosis 2019 low-grade bladder cancer Follow-up cystoscopy 03/18 NAD, 10/17 small lesion on prostate, 10/19 trabeculation with cellules, 05/21 trabeculation with cellules Prior TURP Intervention - 09/17 TURBT fulgeration Cystoscopy 05/21 NAD, 11/19 NAD Cytology 05/21 atypical PFSH Medical History COPD (chronic obstructive pulmonary disease) Raynaud disease Anxiety Respiratory failure COPD (chronic obstructive pulmonary disease) Cardiac pacemaker in situ Bradycardia Malignant neoplasm of lateral wall of urinary bladder COPD (chronic obstructive pulmonary disease) Hyperlipidemia HTN (hypertension) Pulmonary hypertension (HFpEF) heart failure with preserved ejection fraction CAD (coronary artery disease) Chronic atrial fibrillation Surgical History History of placement of leadless cardiac pacemaker Stented coronary artery H/O transurethral resection of prostate History of prostate surgery History of back surgery History of appendectomy Family History Father Lung cancer Cancer Mother No problems noted. Social History Household Members: Spouse Housing: House Are you a primary laboratory animal care veterinarian to a significant other at home: No Do you presently have visiting nurse or other home services: Yes (Visiting nurse [employer], PT [facility], Wound center on Thu) Alcohol intake: never Patient Tobacco Use Status: Former Tobacco user Second Hand Smoke Exposure: No Advance Directives Date on File: 09/17/21 service: Yes Current occupational status: retired Review of Systems Const Denies chills and Denies fever(s) Card Reports no additional complaints and Denies syncope Resp Denies cough GI Denies abdominal pain and Denies heartburn Reports as per HPI and Denies change in libido Neuro Denies syncope Psych Denies change in libido Endo Denies change in libido Physical Exam Const General: cooperative, healthy appearing, comfortable and no acute distress Orientation/consciousness: patient oriented x3 HEENT Face and sinus: Yes normal facial exam Mouth: moist mucous membranes Neck Neck: Yes normal visual inspection, Yes full ROM and Yes trachea midline Chest Chest palpation & inspection: normal inspection of the chest Resp Effort & Inspection: normal respiratory effort, able to speak in complete sentences and no respiratory distress GI Inspection: Yes normal to inspection Back/Spine/Pelvis Cervical Spine: normal cervical lordosis Thoracic/Lumbar Spine: thoracic and lumbar spine normal to inspection Skin General skin exam: no rashes or lesions noted Neuro General: patient oriented x3, gait normal, tone normal and moves all extremities Extrem General: Yes normal to inspection and Yes capillary refill normal Office Procedures Cystoscopy Consent Discussed risk and benefit or proposed procedure with the patient. Information consent for procedure given to the patient. Discussed technical aspects, risks, benefits and alternatives in full. Addressed all of the patient's questions and concerns regarding the procedure. The patient demonstrated knowledge and understanding. They wish to proceed with this procedure. Preparation The patient was prepped in the usual manner. A test examiner was present and in the room. Genitalia was prepped with betadine solution in a sterile manner. Lidocaine Jelly 2% was placed into the urethra and 16Fr flexible Olympus cystoscope was inserted into the meatus after adequate lubrication. Procedure Cystoscopy performed using a disposable Urovue digital 16 Malay cystoscope. Meatus circumcised Urethra anterior and posterior urethra normal Prostatic Urethra anterior tissue otherwise TURP defect Bladder examination with retroflexion of cystoscope Bladder Orifices normal shape and position Bladder Capacity median Trabeculations grade 2/3 Cellule Formation yes Diverticulum Formation none Mucosal Erythema normal Bladder Tumor none [id number] DISPOSABLE SCOPE URO-G FLEXIBLE SCOPE Procedure code (CPT) selection complete Office Meds lidocaine HCl 2 % mucosal jelly in applicator Performing Provider: Murray Watters MD Performing Location: [facility] [place] [facility] Administered by: Inder Nina LPN on 05/06/24 13:15 Dose Route Admin Location Dispensed Lot Number Expiration Date ND Operational Communication Chief 10 mL intra-urethral 10 mL nitrofurantoin monohydrate/macrocrystals 100 mg capsule Performing Provider: Murray Watters MD Performing Location: [facility] [place] [facility] Administered by: Inder Nina LPN on 05/06/24 13:15 Dose Route Admin Location Dispensed Lot Number Expiration Date ND Operational Communication Chief 100 mg PO 1 cap naproxen 500 mg tablet Performing Provider: Murray Watters MD Performing Location: [facility] [place] [facility] Administered by: Inder Nina LPN on 05/06/24 13:15 Dose Route Admin Location Dispensed Lot Number Expiration Date NDC Operational Communication Chief 500 mg PO 1 tab Results AMB Urinalysis, Automated UA Leukoctes 0 Omega/uL Last Edit by NEWTON Latham on 05/06/24 13:30 UA Nitrite Negative Last Edit by NEWTON Latham on 05/06/24 13:30 UA Urobilinogen 0.2 mg/dL Last Edit by NEWTON Latham on 05/06/24 13:30 UA Protein 0 mg/dL Last Edit by NEWTON Latham on 05/06/24 13:30 UA pH 6.0 Last Edit by NEWTON Latham on 05/06/24 13:30 UA Blood 0 Devendra/uL Last Edit by NEWTON Latham on 05/06/24 13:30 UA Specific [place] 1.010 Last Edit by NEWTON Latham on 05/06/24 13:30 UA Ketone Negative Last Edit by NEWTON Latham on 05/06/24 13:30 UA Bilirubin 0 mg/dL Last Edit by NEWTON Latham on 05/06/24 13:30 UA Glucose 0 mg/dL Last Edit by NEWTON Latham on 05/06/24 13:30 Assessment & Plan Assessment & Plan (1) Bladder cancer: Comment: Low-grade bladder cancer recurrent Code(s): C67.9 - Malignant neoplasm of bladder, unspecified Category: Medical (2) BPH w urinary obs/LUTS: Comment: Laser enucleation of prostate Code(s): N40.1 - Benign prostatic hyperplasia with lower urinary tract symptoms; N13.8 - Other obstructive and reflux uropathy Category: Medical (3) Urinary retention: Code(s): R33.9 - Retention of urine, unspecified Category: Medical Plan Six-month follow-up cystoscopy Orders: Orders AMB Cystoscopy Today C67.9 - Malignant neoplasm of bladder, unspecified AMB Urinalysis Automated Today Z13.9 - Encounter for screening, unspecified Urine Cytology Today C67.9 - Malignant neoplasm of bladder, unspecified Patient Instructions: Imaging studies, laboratory and physical exam results were discussed and reviewed in detail. No major barriers to patient understanding were identified. An opportunity to ask questions regarding the treatment plan was provided. All questions were answered. The patient expressed understanding and agreement with the above treatment plan. The patient is aware they should contact our office by phone for worsening of their current condition or the appearance of new urologic symptoms. Compliance is encouraged with any medications and followup testing that is ordered. It is a privilege to participate in the urologic care of your patient. If you have any questions or concerns regarding treatment for the above conditions, or other urologic issues, please do not hesitate to contact me. The office telephone contact is [phone]. This note is constructed using voice recognition software. While every effort has been made to ensure accuracy pediatric pathologist errors may have been included. Yours sincerely, Dr Murray Watters MD, [facility] - Urology Providers of Expert, Compassionate Care for the Genitourinary System Coding Level of Care Code Est Pt Level 3 (89436) Diagnoses Bladder cancer C67.9 BPH w urinary obs/LUTS N40.1; N13.8 Urinary retention R33.9 CPT Codes Cystoscopy - CPT: 38284-[id number] ([id number])
== END 2024-05-06 13:49 | disposition home or self-care (01) ==
PROVIDERS: PCP Internal Medicine; Visit Provider Urology
DX: C67.9 Malignant neoplasm of bladder, unspecified (principal); N40.1 Benign prostatic hyperplasia with lower urinary tract symptoms; N13.8 Other obstructive and reflux uropathy; R33.9 Retention of urine, unspecified; Z13.9 Encounter for screening, unspecified
CPT/HCPCS: 52000; 99213

== ENCOUNTER → 2024-05-31 13:09 | Outpatient (REF) | payer MEDICARE, OTHER, SELFPAY ==
--- NOTE | 2024-05-31 13:12 | CA_ITS ---
Transthoracic Echocardiogram Patient (Last, First, Middle): Duke Felton W Gender: Male Date of : 1935 Age: 88 Procedure Date: 05/31/2024 Procedure Type: Transthoracic Echocardiogram Location: OP Height: 182. cm Weight: 68.95 kg BSA: 1.89 m2 Heart Rate: 50 bpm BP: 120 / 65 mmHg Payroll And Benefits Coordinator: SIXTO Referring MD: Albert Cabrera MD Symptoms: I50.9 - Heart failure, unspecified Study Quality: Adequate ECG Rhythm: Atrial Fibrillation Conclusions: - The left ventricular systolic function is low normal. The visually estimated ejection fraction is between 50-55%. - The basal inferior and basal inferolateral segments are hypokinetic. - Severe biatrial enlargement. - There is mild aortic valve stenosis. - Mild pulmonary hypertension is present. Findings Left Ventricle Normal left ventricular cavity size. There is mildly increased left ventricular wall thickness. The left ventricular systolic function is low normal. The visually estimated ejection fraction is between 50-55%. Diastolic function is indeterminate on the basis of available data. Wall Motion Rest Echo Findings The basal inferior and basal inferolateral segments are hypokinetic. Right Ventricle Mildly increased right ventricular cavity size. There is normal right ventricular systolic function. Atria Severe biatrial enlargement. Aortic Valve There is moderate calcification of the aortic valve. There is mild aortic valve stenosis. Trace to mild aortic regurgitation. Mitral Valve There is mild mitral annular calcification. There is trace mitral valve regurgitation. There is no mitral valve stenosis. Pulmonic Valve The pulmonic valve is likely normal. Tricuspid Valve There is mild tricuspid valve regurgitation. Mild pulmonary hypertension is present. Great Vessels The asc aorta is normal in size. Venous The inferior vena cava is dilated and collapses less than 50% with inspiration. Pericardium/Pleural There is no evidence of pericardial effusion. Prior Study Comparison Changes noted compared to prior study dated: 05/29/2023. LVEF is slightly lower than previously reported. RVSP is lower. Measurements 2D Linear Measurements IVSd: 1.20 0.6-0.9/0.6-1.0 cm LVIDd: 4.93 3.9-5.3/4.2-5.9 cm LVIDd Index: 2.61 2.4-3.2/2.2-3.1 cm/m2 LVIDs: 3.42 2.0-3.6 cm LVPWd: 1.02 0.7-1.1 cm LA Diam: 4.80 2.7-3.8/3.0-4.0 cm LAIDs Index: 2.54 1.5-2.3 cm/m2 LV Mass: 255.53 67-162/88-224 g LV Mass Index: 135.20 43-95/49-115 g/m2 LVOT Diam: 2.20 3.0+(-)1.3 cm 2D Systolic Function EF 4C: 49.30 >55% EF 2C: 62.00 >55% EF BiP: 54.90 >55% Mitral Valve MV VTI: 0.40 MV Pk Alvaro: 1.35 MV Mn Alvaro: 0.54 MV Pk Grad: 7.00 MV Mn Grad: 2.00 MV Pk E: 1.19 MV Decel Time: 140.00 E'Lateral: 13.20 E'Medial: 6.20 E/E' Med: 19.20 E/E' Lat: 9.00 PHT: 41.00 MVA PHT: 5.37 MVA Continuity: 1.97 Decel Eddy: 8.52 Aortic Valve AoV Pk Alvaro: 1.93 AoV Mn Alvaro: 1.37 AoV VTI: 0.47 AoV Pk Grad: 15.00 Aov Mn Grad: 8.00 CARLOS Cont.VTI: 1.68 AI Pk Alvaro: 3.54 AI Eddy: 1.83 LVOT LVOT Pk Alvaro: 0.81 LVOT Mn Alvaro: 0.62 LVOT VTI: 0.21 LVOT Pk Grad: 3.00 LVOT Mn Grad: 2.00 LVOT Diam: 2.20 LVOT Area: 3.80 Diastolic Function MV Pk E: 1.19 E'Medial: 6.20 E/E' Med: 19.20 E' Laterial: 13.20 E/E' Lat: 9.00 Right Ventricle TAPSE (mm): 19.30 TVS' Alvaro: 10.40 Tricuspid Valve TR Pk Alvaro: 2.66 TR Pk Grad: 28.00 RA Press: 15.00 RVSP: 43.00 Great Vessels Aorta Sinus of Valsalva: 3.70 2.0-3.5 cm Ao Asc: 3.90 2.1-3.4 cm Pulmonary Valve PV Pk Alvaro: 0.81 Peak PV Grad: 3.00 Updated in Other Vendor System with Status of Final Marlon Thornton MD electronically signed on 06/01/2024 12:37:32 PM with status of Final
--- OUTSIDE RECORDS SUMMARY | 2024-06-07 14:11 | XMS_ITS | Continuity of Care Document ---
Author Name [facility] Organization [facility] Care Team Providers Care Ship Pilot Dispatcher Name Role Phone [facility] Unavailable Unavailable Problems Combined list of problems from Department of Defense and Veterans Affairs facilities. It does not include entries that were removed or entered in error. Problem Status Onset Date Problem Type Date of Resolution Comments Source Colonic Polyps Active 05/23/20 08 Condition Sep 21, 2008 Entered By: PRIYANKA LITTLE Comment: benign polyps next colo 04/17/2013 [facility] AF- Atrial Fibrillation ([facility] [id number]) Active Condition [facility] Bilateral Cataracts Active Condition Dec 10, 2009 Entered By: PRIYANKA LITTLE Comment: exam 11/06/2009 [facility] Bladder cancer Active Condition [facility] CAD - Coronary Artery Disease ([facility] [id number]) Active Condition Jul 11, 2020 Entered By: TEE GRAVES Comment: s/p 2 stents [facility] Carotid artery stenosis Active Condition [facility] CHF - Congestive Heart Failure (SCT 72764201) Active Condition [facility] COPD - Chronic Obstructive Pulmonary Disease ([facility] [id number]) Active Condition [facility] Hyperplasia of Prostate, unspecified, without Urinary obstruction and other lowe Active Condition [facility] Hypertensive heart disease with congestive heart failure (SNOMED CT 9202893) Active Condition Sep 15, 2022 Entered By: HOMERO FARIA Comment: +microalbuminuri a [facility] Hypertensive retinopathy Active Condition Dec 10, 2009 Entered By: PRIYANKA LITTLE Comment: right eye [facility] Non-[facility] providers Active Condition Jul 11, 2020 Entered By: TEE GRAVES Comment: PCP-Dr.Glen Resendez 2020 Entered By: TEE GRAVES Comment: 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 Albert New 2020 Entered By: TEE GRAVES Comment: Urologist-Dr. Markus Bruce 2022 Entered By: JEN DAVILA Comment: Dr. Gregory Rojo--telep [facility] # [phone] [facility] Normocytic anemia Active Condition Sep 08, 2022 Entered By: HOMERO FARIA Comment: persistent [facility] Sleep Apnea (SCT [id number]) Active Condition [facility] Spinal stenosis of lumbar region Active Condition Sep 21, 2008 Entered By: PRIYANKA LITTLE Comment: surgery l4-l5 decompression 06/01/08 [facility] Wound Active Condition Aug 01 Entered By: TEE GRAVES Comment: Right lower leg woundFeb 2020 Entered By: TEE GRAVES Comment: [facility] by [facility] [place] [facility] Diagnosis: ICD-10-CM R42 Dizziness and giddiness Active [facility] Diagnosis: ICD-10-CM Z23 Encounter for immunization Active Diagnosis [facility] Diagnosis: ICD-10-CM R53.83 Other fatigue Active Diagnosis [facility] Diagnosis: ICD-10-CM Z91.89 Oth personal risk factors, not elsewhere classified Active Diagnosis [facility] Diagnosis: ICD-10-CM R63.4 Abnormal weight loss Active Diagnosis [facility] Diagnosis: ICD-10-CM Z04.89 Encounter for examination and observation for oth reasons Active Diagnosis [facility] Diagnosis: ICD-10-CM Z00.01 Encounter for general adult medical exam w abnormal findings Active Diagnosis [facility] Medications Combined list of outpatient medications from Department of Defense and Veterans Affairs facilities.Medications provided include 1) outpatient medications from the last 15 months, and 2) patient-reported medications. Medication Details Route Status Patient Instructions Prescription Expires Prescription Number Last Dispense Date Ordering Provider Order Date Order Qty Source ALBUTEROL 90MCG/ACTUA T (CFC-F) INHL,ORAL,8 .5GM DOSE COUNTER INHALE 2 PUFFS BY MOUTH EVERY 4 HOURS NEEDED FOR [place] RESPIR ATORY (INHAL ATION) DISCONT INUED 07/05/2023 [id number] BIENVENIDO, APOLINARI O 2022 3 [place] ALBUTEROL 90MCG/ACTUA T (CFC-F) INHL,ORAL,8 .5GM DOSE COUNTER INHALE 2 PUFFS BY MOUTH EVERY 4 HOURS NEEDED FOR BRONCHOS PASM RESPIR ATORY (INHAL ATION) 05/25/2024 [id number] 3 BIENVENIDO, APOLINARI O 2022 3 [place] AMLODIPINE BESYLATE 5MG TAB TAKE ONE TABLET BY MOUTH ONCE DAILY ORAL ACTIVE TEE GRAVES 2020 [place] ATORVASTATI N CA 40MG TAB TAKE ONE-HALF TABLET BY MOUTH ONCE DAILY ORAL SUSPEND ED 06/03/2025 [id number] 5 RA FREDERICK DE SOUZA 2024 45 [place] ATORVASTATI N CA 40MG TAB TAKE ONE-HALF TABLET BY MOUTH ONCE DAILY ORAL DISCONT INUED 08/20/2024 [id number] 4 BIENVENIDO, APOLINARI O 2023 45 [place] ATORVASTATI N CA 40MG TAB TAKE ONE-HALF TABLET BY MOUTH ONCE DAILY ORAL DISCONT INUED 08/20/2023 [id number] 4 BIENVENIDO, APOLINARI O 2023 23 [place] ATORVASTATI N CA 40MG TAB TAKE ONE-HALF TABLET BY MOUTH ONCE DAILY ORAL DISCONT INUED 11/12/2023 [id number] 3 BIENVENIDO, APOLINARI O 2022 45 [place] ([facility]) BETHANECHOL CL 25MG TAB TAKE TWO TABLETS BY MOUTH TWICE DAILY FOR URINARY RETENTIO N ORAL ACTIVE 11/09/2024 [id number] 4 BIENVENIDO, APOLINARI O 2023 360 [place] BETHANECHOL CL 25MG TAB TAKE TWO TABLETS BY MOUTH TWICE DAILY FOR URINARY RETENTIO N ORAL DISCONT INUED 07/23/2024 [id number] ADDIS FARAH MD 2023 360 [facility] FERROUS SO4 325MG TAB TAKE ONE TABLET BY MOUTH ONCE DAILY ORAL ACTIVE MELANIA MCGUIRE RISTINE F [address] [facility] FINASTERIDE 5MG TAB TAKE ONE TABLET BY MOUTH ONCE DAILY FOR PROSTATE ORAL SUSPEND ED 12/30/2024 [id number] 5 BIENVENIDO, APOLINARI O 2023 90 [place] FINASTERIDE 5MG TAB TAKE ONE TABLET BY MOUTH ONCE DAILY FOR PROSTATE ORAL DISCONT INUED 12/17/2023 [id number] 4 BIENVENIDO, APOLINARI O 2022 90 [place] FINASTERIDE 5MG TAB TAKE ONE TABLET BY MOUTH ONCE DAILY ORAL ACTIVE ELY ,TEE 2020 [place] OLODATEROL 2.5MCG/TIOT ROPIUM 2.5MCG/ACTU AT INHL,ORAL,6 0D,4GM INHALE 2 PUFFS (1 DOSE) BY MOUTH ONCE DAILY RESPIR ATORY (INHAL ATION) SUSPEND ED 03/05/2025 [id number] 5 BIENVENIDO, APOLINARI O 2023 3 [place] OLODATEROL 2.5MCG/TIOT ROPIUM 2.5MCG/ACTU AT INHL,ORAL,6 0D,4GM INHALE 2 PUFFS (1 DOSE) BY MOUTH ONCE DAILY RESPIR ATORY (INHAL ATION) DISCONT INUED 05/25/2024 [id number] 4 BIENVENIDO, APOLINARI O 2022 3 [place] POTASSIUM CHLORIDE 10MEQ TAB,SA TAKE ONE TABLET BY MOUTH ONCE DAILY ORAL ACTIVE AJERICAGOTTU ,TEE [place] RIVAROXABAN 15MG TAB TAKE ONE TABLET BY MOUTH ONCE DAILY TO PREVENT BLOOD CLOTS WITH FOOD DOSE REDUCTIO N:DISCON TINUE 20MG TABS) ORAL ACTIVE 07/10/2024 [id number] BIENVENIDO, APOLINARI O 2023 90 [place] RIVAROXABAN 20MG TAB TAKE ONE TABLET BY MOUTH ONCE DAILY WITH FOOD ORAL DISCONT INUED (EDIT) 05/25/2024 [id number] 3 BIENVENIDO, APOLINARI O 2022 90 [place] RIVAROXABAN 20MG TAB TAKE ONE TABLET BY MOUTH ONCE DAILY WITH FOOD ORAL DISCONT INUED 06/21/2023 [id number] 3 BIENVENIDO, APOLINARI O 2021 90 [place] SACUBITRIL 24MG/VALSAR JAQUEZ 26MG TAB TAKE 1 TABLET BY MOUTH TWICE DAILY ORAL SUSPEND ED 03/05/2025 [id number] 5 BIENVENIDO, APOLINARI O 2023 180 [place] SACUBITRIL 24MG/VALSAR JAQUEZ 26MG TAB TAKE 1 TABLET BY MOUTH TWICE DAILY ORAL DISCONT INUED 03/22/2024 [id number] 4 BIENVENIDO, APOLINARI O 2022 180 [place] SACUBITRIL 24MG/VALSAR JAQUEZ 26MG TAB TAKE 1 TABLET BY MOUTH TWICE DAILY ORAL DISCONT INUED 04/18/2023 [id number] BIENVENIDO, APOLINARI O 2022 180 [place] TADALAFIL 5MG TAB TAKE ONE TABLET BY MOUTH ONCE DAILY ORAL ACTIVE BIENVENIDO, APOLINARI O 2023 [place] TAMSULOSIN HCL 0.4MG CAP TAKE 1 CAPSULE BY MOUTH ONCE DAILY ORAL ACTIVE TEE GRAVES 2020 [place] TORSEMIDE 20MG TAB TAKE THREE TABLETS BY MOUTH ONCE DAILY ORAL SUSPEND ED 03/05/2025 [id number] 5 BIENVENIDO, APOLINARI O 2023 270 [place] TORSEMIDE 20MG TAB TAKE THREE TABLETS BY MOUTH ONCE DAILY ORAL DISCONT INUED 05/25/2024 [id number] 4 BIENVENIDO, APOLINARI O 2022 270 [place] Immunizations Combined list of available immunizations from the Department of Defense and Veterans Affairs facilities. 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 [id number] EXP [place] COVID-19 (MODERNA), MRNA, LNP-S, PF, 50 MCG/0.5 ML (AGES 12+ YEARS) 1 2022 GIOVANNICHRYSTAL LEFT DELTO ID [id number] 312 complet ed [place] INFLUENZA, UNSPECIFIED FORMULATION 2022 88 complet ed [facility] COVID-19 (MODERNA), MRNA, LNP-S, BIVALENT BOOSTER, PF, 50 MCG/0.5 ML OR 25MCG/0.25 ML DOSE 1 2022 FLORES LOZA LEFT ARM [id number] 229 complet ed [facility] INFLUENZA, UNSPECIFIED FORMULATION 2021 88 complet ed [facility] COVID-19 (MODERNA), MRNA, LNP-S, BIVALENT BOOSTER, PF, 50 MCG/0.5 ML OR 25MCG/0.25 ML DOSE 1 2021 229 complet ed [facility] PNEUMOCOCCAL POLYSACCHARID E PPV23 2021 33 complet ed [facility] COVID-19 (MODERNA), MRNA, LNP-S, PF, 100 MCG OR 50 MCG DOSE 3 2020 207 complet ed MOD; [id number]; 2 [place] INFLUENZA VACCINE, QUADRIVALENT, ADJUVANTED 2020 205 complet ed [place] COVID-19 (MODERNA), MRNA, LNP-S, PF, 100 MCG/0.5 ML DOSE 2 2020 207 complet ed MOD; [id number]; 1 [place] COVID-19 (MODERNA), MRNA, LNP-S, PF, 100 MCG/0.5 ML DOSE 1 2020 207 complet ed MOD; [id number]; 1 [place] INFLUENZA, UNSPECIFIED FORMULATION 2019 88 complet ed [facility] ZOSTER LIVE 2019 121 complet ed provided [facility] PNEUMOCOCCAL POLYSACCHARID E PPV23 2014 33 complet ed [facility] PNEUMOCOCCAL CONJUGATE PCV 13 2011 133 complet ed immunizat ion record provided. [facility] FLU,3 YRS (HISTORICAL) 2009 88 complet ed [facility] NOVEL INFLUENZA-H1N 1-09, ALL FORMULATIONS 2009 128 complet ed [facility] FLU,3 YRS (HISTORICAL) 2008 88 complet ed Site: Left Deltoid [place] FLU,3 YRS (HISTORICAL) 2007 88 complet ed Site: Left Deltoid [place] FLU,3 YRS (HISTORICAL) 2006 88 complet ed Site: Left Deltoid [place] Results Combined list of recent chemistry, hematology and other laboratory results from Department of Defense and Veterans Affairs, ranging from 15 months to all on record, depending upon the facility. Order Name Results Value Reference Range Date Interpretation Specimen Comments Source VITAMIN B12 COBALAMIN (VITAMIN B12) [MASS/VOLUM E] IN SERUM OR PLASMA 472 pg/mL 200 - 900 02/02 Specimen Type: SERUM No comment entered. Ordering Provider: NIKKI FARIA Report Released Date/Time: Feb 03, 2024 11:33 AM Reporting Lab: [place] [email or web address] [facility] [address] [address] Performing Lab: [facility] [place] [facility] [address] [facility] [address] [facility] [place] [facility] TSH THYROTROPIN [UNITS/VOLU ME] IN SERUM OR PLASMA 2.33 u[IU]/ mL 0.35 - 5.00 02/02 Specimen Type: SERUM No comment entered. Ordering Provider: NIKKI FARIA Report Released Date/Time: Feb 03, 2024 11:33 AM Reporting Lab: [facility] [place] [facility] [address] [facility] [address] Performing Lab: [facility] [place] [facility] [address] [facility] [address] [facility] [place] [facility] FOLATE (WROX) FOLATE [MASS/VOLUM E] IN SERUM OR PLASMA 6.28 ng/mL 5.2 02/02 Specimen Type: SERUM No comment entered. Ordering Provider: NIKKI FARIA Report Released Date/Time: Feb 03, 2024 11:34 AM Reporting Lab: [facility] [place] [facility] [address] [facility] [address] Performing Lab: [facility] [place] [facility] [address] [facility] [address] [facility] VITAMIN D (25-OH) 25-HYDROXYV ITAMIN D3 [MASS/VOLUM E] IN SERUM OR PLASMA 30 ng/mL 20 - 50 02/02 Specimen Type: SERUM No comment entered. Ordering Provider: NIKKI FARIA Report Released Date/Time: Feb 03, 2024 11:33 AM Reporting Lab: [facility] [place] [facility] [address] [facility] [address] Performing Lab: [facility] [place] [facility] [address] [facility] [address] [facility] FERRITIN FERRITIN [MASS/VOLUM E] IN SERUM OR PLASMA 110 ng/mL 20 - 300 02/02 Specimen Type: SERUM No comment entered. Ordering Provider: NIKKI FARIA Report Released Date/Time: Feb 03, 2024 11:34 AM Reporting Lab: [facility] [place] [facility] [address] [facility] [address] Performing Lab: [facility] [place] [facility] [address] [facility] [address] [facility] LIPID PANEL FASTING CHOLESTEROL [MASS/VOLUM E] IN SERUM OR PLASMA 98 mg/dL 02/02 Specimen Type: SERUM No comment entered. Ordering Provider: NIKKI FARIA Report Released Date/Time: Feb 03, 2024 11:33 AM Reporting Lab: [facility] [place] [facility] [address] [facility] [address] Performing Lab: [facility] [place] [facility] [address] [facility] [address] [facility] TRN [facility] LIPID PANEL FASTING TRIGLYCERID E [MASS/VOLUM E] IN SERUM OR PLASMA 65 mg/dL 0 - 150 02/02 Specimen Type: SERUM No comment entered. Ordering Provider: NIKKI FARIA Report Released Date/Time: Feb 03, 2024 11:33 AM Reporting Lab: [facility] [place] [facility] [address] [facility] [address] Performing Lab: [facility] [place] [facility] [address] [facility] [address] [facility] LIPID PANEL FASTING CHOLESTEROL IN LDL [MASS/VOLUM E] IN SERUM OR PLASMA BY CALCULATION 41 mg/dL 0 - 129 02/02 Specimen Type: SERUM No comment entered. Ordering Provider: NIKKI FARIA Report Released Date/Time: Feb 03, 2024 11:33 AM Reporting Lab: [facility] [place] [facility] [address] [facility] [address] Performing Lab: [facility] [place] [facility] [address] [facility] [address] [facility]N [facility] LIPID PANEL FASTING CHOLESTEROL .TOTAL/CHOL ESTEROL IN HDL [MASS RATIO] IN SERUM OR PLASMA 2.2 02/02 Specimen Type: SERUM No comment entered. Ordering Provider: NIKKI FARIA Report Released Date/Time: Feb 03, 2024 11:33 AM Reporting Lab: [facility] [place] [facility] [address] [facility] [address] Performing Lab: [facility] [facility] [address] [facility] [address] [facility] LIPID PANEL FASTING CHOLESTEROL IN HDL [MASS/VOLUM E] IN SERUM OR PLASMA 44 mg/dL 40 - 60 02/02 Specimen Type: SERUM No comment entered. Ordering Provider: NIKKI FARIA Report Released Date/Time: Feb 03, 2024 11:33 AM Reporting Lab: [facility] [place] [facility] [address] [facility] [address] Performing Lab: [facility] [facility] [address] [facility] [address] [facility] BASIC METABOLIC PANEL (fasting) UREA NITROGEN [MASS/VOLUM E] IN SERUM OR PLASMA 44 mg/dL 7 - 25 02/02 H Specimen Type: SERUM No comment entered. Ordering Provider: NIKKI FARIA Report Released Date/Time: Feb 03, 2024 11:33 AM Reporting Lab: [facility] [facility] [address] [facility] [address] Performing Lab: [facility] [facility] [address] [facility] [address] [facility] [place] [facility] BASIC METABOLIC PANEL (fasting) GLUCOSE [MASS/VOLUM E] IN SERUM OR PLASMA 91 mg/dL 65 - 100 02/02 Specimen Type: SERUM No comment entered. Ordering Provider: NIKKI FARIA Report Released Date/Time: Feb 03, 2024 11:33 AM Reporting Lab: [facility] [facility] [address] [facility] [address] Performing Lab: [facility] [place] [facility] [address] [facility] [address] [facility] [place] [facility] BASIC METABOLIC PANEL (fasting) SODIUM [MOLES/VOLU ME] IN SERUM OR PLASMA 137 mmol/L 135 - 145 02/02 Specimen Type: SERUM No comment entered. Ordering Provider: NIKKI FARIA Report Released Date/Time: Feb 03, 2024 11:33 AM Reporting Lab: [facility] [facility] [address] [facility] [address] Performing Lab: [facility] [address] [facility] [address] [facility] BASIC METABOLIC PANEL (fasting) POTASSIUM [MOLES/VOLU ME] IN SERUM OR PLASMA 4.1 mmol/L 3.5 - 5.0 02/02 Specimen Type: SERUM No comment entered. Ordering Provider: NIKKI FARIA Report Released Date/Time: Feb 03, 2024 11:33 AM Reporting Lab: [facility] [address] [facility] [address] Performing Lab: [place] [facility] [address] [facility] [address] [facility] BASIC METABOLIC PANEL (fasting) CHLORIDE [MOLES/VOLU ME] IN SERUM OR PLASMA 105 mmol/L 100 - 110 02/02 Specimen Type: SERUM No comment entered. Ordering Provider: NIKKI FARIA Report Released Date/Time: Feb 03, 2024 11:33 AM Reporting Lab: [facility] [place] [address] [address] Performing Lab: [facility] [address] [facility] [address] [facility] BASIC METABOLIC PANEL (fasting) CARBON DIOXIDE, TOTAL [MOLES/VOLU ME] IN SERUM OR PLASMA 24 meq/L 20 - 30 02/02 Specimen Type: SERUM No comment entered. Ordering Provider: NIKKI FARIA Report Released Date/Time: Feb 03, 2024 11:33 AM Reporting Lab: [facility] [address] [address] Performing Lab: [place] [facility] [address] [address] [facility] BASIC METABOLIC PANEL (fasting) CREATININE [MASS/VOLUM E] IN SERUM OR PLASMA 1.12 mg/dL 0.50 - 1.40 02/02 Specimen Type: SERUM No comment entered. Ordering Provider: NIKKI FARIA Report Released Date/Time: Feb 03, 2024 11:33 AM Reporting Lab: [facility]WR[facility]ERN [facility] [address] [facility] [address] Performing Lab: [facility] SAGINAWRL.[facility] HOSPITALTRN [facility]ITALUSE[facility] [address] [facility] [address] [facility] BASIC METABOLIC PANEL (fasting) GLOMERULAR FILTRATION RATE/1.73 SQ M.PREDICTED [VOLUME RATE/AREA] IN SERUM, PLASMA OR BLOOD BY CREATININE- BASED FORMULA (CKD-EPI 2020) 63 mL/min 60 02/02 Specimen Type: SERUM No comment entered. Ordering Provider: NIKKI FARIA Report Released Date/Time: Feb 03, 2024 11:33 AM Reporting Lab: [facility]AGINAWRL.[facility] HOSPITALTRN [facility]ITAL[facility] [address] [facility] [address] Performing Lab: [facility]INAWRBROOKWOOD BAPTIST MEDICAL CENTERN [facility]ITALUSE[facility] [address] [facility] [address] [facility] LIVER FUNCTION PROTEIN [MASS/VOLUM E] IN SERUM OR PLASMA 7.4 g/dL 6.0 - 8.3 02/02 Specimen Type: SERUM No comment entered. Ordering Provider: NIKKI FARIA Report Released Date/Time: Feb 03, 2024 11:33 AM Reporting Lab: [facility]INAWRBROOKWOOD BAP[facility]IST MEDICAL CENTERN [facility]ITALUSE[facility] [address] [facility] [address] Performing Lab: [facility] S[facility]INAWRBROOKWOOD BAPTIST MEDICAL CENTERN [facility]ITALUSE[facility] [address] [facility] [address] [facility] LIVER FUNCTION ALBUMIN [MASS/VOLUM E] IN SERUM OR PLASMA 4.1 g/dL 3.5 - 5.0 02/02 Specimen Type: SERUM No comment entered. Ordering Provider: NIKKI FARIA Report Released Date/Time: Feb 03, 2024 11:33 AM Reporting Lab: [facility] [place] [facility] [address] [facility] [address] Performing Lab: [facility] [place] [facility] [address] [facility] [address] [facility] [place] [facility] LIVER FUNCTION ALKALINE PHOSPHATASE [ENZYMATIC ACTIVITY/VO LUME] IN SERUM OR PLASMA 64 U/L 40 - 150 02/02 Specimen Type: SERUM No comment entered. Ordering Provider: NIKKI FARIA Report Released Date/Time: Feb 03, 2024 11:33 AM Reporting Lab: [facility] [place] [facility] [address] [facility] [address] Performing Lab: [facility] [place] [facility] [address] [facility] [address] [facility] [place] [facility] LIVER FUNCTION ASPARTATE AMINOTRANSF ERASE [ENZYMATIC ACTIVITY/VO LUME] IN SERUM OR PLASMA 17 U/L 5 - 34 02/02 Specimen Type: SERUM No comment entered. Ordering Provider: NIKKI FARIA Report Released Date/Time: Feb 03, 2024 11:33 AM Reporting Lab: [facility] [place] [facility] [address] [facility] [address] Performing Lab: [facility] [place] [facility] [address] [facility] [address] [facility] [place] [facility] LIVER FUNCTION ALANINE AMINOTRANSF ERASE [ENZYMATIC ACTIVITY/VO LUME] IN SERUM OR PLASMA 7 U/L 02/02 Specimen Type: SERUM No comment entered. Ordering Provider: NIKKI FARIA Report Released Date/Time: Feb 03, 2024 11:33 AM Reporting Lab: [facility] [place] [facility] [address] [facility] [address] Performing Lab: [facility] [place] [facility] [address] [facility] [address] [facility] [place] [facility] LIVER FUNCTION BILIRUBIN.T OTAL [MASS/VOLUM E] IN SERUM OR PLASMA 0.9 mg/dL 0.2 - 1.2 02/02 Specimen Type: SERUM No comment entered. Ordering Provider: NIKKI FARIA Report Released Date/Time: Feb 03, 2024 11:33 AM Reporting Lab: [facility] [address] [facility] [address] Performing Lab: [facility] [address] [facility] [facility] [address] [facility] HEMOGLOBI N A1C PANEL HEMOGLOBIN A1C/HEMOGLO BIN.TOTAL IN BLOOD BY HPLC 5.3 4.0 - 5.6 02/02 Specimen Type: BLOOD Comment: Values obtained from A1C measurement s can vary. For atypical A1C assays, a reported value of 7.0 could actually be between 6.72 and 7.28 if measured by a reference method. A reported value of 9.0 could actually be between 8.73 and 9.27. Ref: [email or web address] ngsp.org/[place] Pdata.asp Ordering Provider: NIKKI FARAI Report Released Date/Time: Feb 03, 2024 11:33 AM Reporting Lab: [facility] [address] [facility] [facility] [address] Performing Lab: [facility] [address] [facility] [facility] [address] [facility] CALCIUM CALCIUM [MASS/VOLUM E] IN SERUM OR PLASMA 9.2 mg/dL 8.5 - 10.2 02/02 Specimen Type: SERUM No comment entered. Ordering Provider: NIKKI FARIA Report Released Date/Time: Feb 03, 2024 11:33 AM Reporting Lab: [facility] [address] [facility] [address] Performing Lab: [facility] [address] [facility] [address] [facility] Vital Signs Combined list of inpatient and outpatient Vital Signs from Department of Defense and Veterans Affairs, ranging from 12 months to all on record, depending upon the facility. Vital Sign Value Date Comments Source SYSTOLIC BLOOD PRESSURE 120 05/25/20 24 13:39:34 [facility] DIASTOLIC BLOOD PRESSURE 56 024 13:39:34 [facility] PULSE OXIMETRY 90 05/25/2024 13:39:34 [facility] WEIGHT 162.8 05/25/2024 13:39:34 [facility] BMI 22kg/m2 05/25/2024 13:39:34 [facility] PAIN 0 05/25/2024 13:39:34 [facility] HEIGHT 73 05/25/2024 13:39:34 [facility] TEMPERATURE 97.6 05/25/2024 13:39:34 [facility] PULSE 64 05/25/2024 13:39:34 [facility] RESPIRATION 20 05/25/2024 13:39:34 [facility] SYSTOLIC BLOOD PRESSURE 136 02/03/20 24 10:36:03 [facility] DIASTOLIC BLOOD PRESSURE 72 024 10:36:03 [facility] PULSE OXIMETRY 97 02/03/2024 10:36:03 [facility] WEIGHT 157 02/03/2024 10:36:03 [facility] BMI 21kg/m2 02/03/2024 10:36:03 [facility] TEMPERATURE 98 02/03/2024 10:36:03 [facility] PULSE 88 02/03/2024 10:36:03 [facility] SYSTOLIC BLOOD PRESSURE 111 11/25/19 24 13:19:22 [facility] DIASTOLIC BLOOD PRESSURE 63 024 13:19:22 [facility] PULSE OXIMETRY 95 11/25/2023 13:19:22 [facility] WEIGHT 159 11/25/2023 13:19:22 [facility] BMI 21kg/m2 11/25/2023 13:19:22 [facility] TEMPERATURE 96.2 11/25/2023 13:19:22 [facility] PULSE 63 11/25/2023 13:19:22 [facility] RESPIRATION 20 11/25/2023 13:19:22 [facility] SYSTOLIC BLOOD PRESSURE 146 08/25/19 13:26:26 [facility] DIASTOLIC BLOOD PRESSURE 66 024 13:26:26 [facility] PULSE OXIMETRY 88 08/25/2023 13:26:26 [facility] WEIGHT 158 08/25/2023 13:26:26 [facility] BMI 21kg/m2 08/25/2023 13:26:26 [facility] PAIN 0 08/25/2023 13:26:26 [facility] HEIGHT 73 08/25/2023 13:26:26 [facility] TEMPERATURE 97.5 08/25/2023 13:26:26 [facility] PULSE 92 08/25/2023 13:26:26 [facility] RESPIRATION 22 08/25/2023 13:26:26 [facility] Encounters Combined list of: 1) Encounters from Department of Veterans Affairs facilities going back up to thelast 18 months. 2) Encounters from the Department of Defense facilities going back up to 280 months. Location Location Details Encounter Type Encounter Number Reason For Visit Attending Provider ADM Date DC Date Status Disposition Source [facility] Out[facility] Encounter [id number] 01/05 [facility] Outpatient [facility]counter [id number] 03/20 [facility] Outpatient Encounter [id number] 04/10 [facility] Outpatient Encounter [id number] 04/20 [facility] Outpatient Encounter [id number] 05/04 [facility] [place] OFF/OP EST MAY X REQ PHY/QHP [id number] Diagnos is: ICD-10- CM Z23 Encount er for immuniz ation<b r/> GIOVANNI,L YUE H 05/06 [place] [facility] Q[facility]P OL DIG ASSMT&MGMT 5-10 [id number] Diagnos is: ICD-10- CM Z04.89 Encount er for examina tion and observa tion for oth reasons
DIMA SUAZO 05/11 [facility] [place] O/P EST MOD 30-39 MIN [id number] Diagnos is: ICD-10- CM Z00.01 Encount er for general adult medical exam w abnorma l finding s
Lonny FARIA 05/25 [place] [facility] Outpatient Encounter [id number] 05/27 [facility] [place] OFF/OP EST MAY X REQ PHY/QHP [id number] Diagnos is: ICD-10- CM Z23 Encount er for immuniz ation<b r/> GIOVANNI,L YUE H 06/02 [place] [facility] QNHP OL DIG ASSMT&MGMT 5-10 [id number] Diagnos is: ICD-10- CM Z04.89 Encount er for examina tion and observa tion for oth reasons
BOBO VERDUGO 06/11 [facility] [facility] Outpatient [facility]counter [id number] 06/19 [facility] Outpatient [facility]counter [id number] 07/03 [facility] QNHP OL DIG ASSMT&MGMT 5-10 [id number] Diagnos is: ICD-10- CM Z04.89 Encount er for examina tion and observa tion for oth reasons
AYDEN REYNOSO 07/09 [facility] Q[facility]P OL DIG ASSMT&MGMT 5-10 [id number] Diagnos is: ICD-10- CM Z04.89 Encount er for examina tion and observa tion for oth reasons
KIM CARROLL IE 07/15 [facility] OFFICE O/P EST MOD 30 MIN [id number] Diagnos is: ICD-10- CM R63.4 Abnorma l weight loss
Lonny FARIA 08/25 [facility] [place] [facility] Outpatient Encounter [id number] 08/26 [facility] En[facility] [id number] 09/23 [facility] En[facility] [id number] 10/22 [facility] Encounter [id number] 11/02 [facility] Encounter [id number] 11/05 [facility] Encounter [id number] 11/05 [facility] En[facility] [id number] 11/10 [facility] En[facility] [id number] 11/15 [facility] [place] O/P EST MOD 30 MIN [id number] Diagnos is: ICD-10- CM Z91.89 Oth persona l risk factors , not elsewhe re classif ied<br/ > BIENVENIDO,A POLINAR11/24 [place] Out[place] Encounter [id number] BIENVENIDO,A POLINARIO 11/24 [place] O/P EST MOD 30 MIN [id number] Diagnos is: ICD-10- CM R53.83 Other fatigue
BIENVENIDO,A POLINARIO 02/02 [place] [facility] Encounter [id number] 02/02 [facility] Outpatient Encounter [id number] Diagnos is: ICD-10- CM R53.83 Other fatigue
BIENVENIDO,A POLINARIO 02/04 [place] [facility] Outpatient Encounter [id number] 02/17 [facility] Outpatient [facility]counter [id number] 1.04/29 [facility] Outpatient Encounter [id number] 05/08 [facility] OFF/OP EST OCTOBER X REQ PHY/QHP [id number] Diagnos is: ICD-10- CM Z23 Encount er for immuniz ation<b r/> GIOVANNI,L YUE H 05/16 [place] [facility] Outpatient Encounter [id number] 05/16 [facility] OFFICE O/P EST MOD 30 MIN [id number] 1BY. [id number] Diagnos is: ICD-10- CM R42 Dizzine ss and giddine ss
BIENVENIDO,A POLINARIO 05/25 [place] [facility] SELF CARE MNGMENT TRAINING [id number] 1. Diagnos is: ICD-10- CM R42 Dizzine ss and giddine ss
VIC SANTOS LLSally M 05/31 [facility] Outpatient Encounter [id number] [place] [facility] Social History Combined list of available smoking, tobacco, and other social history from Department of Defense and Veterans Affairs facilities. Social History Type Response Date Comment Sourc e Tobacco smoking status NHIS VA-TOBACCO FORMER USER 05/16/2024 [facility] History of tobacco use VA-TOBACCO QUIT 15 YRS OR MORE 05/16/2024 [facility] History of tobacco use MO-TO[facility]ACCO FORMER USER 05/06/2023 [facility] History of tobacco use MO-TOBACCO FORMER USER 05/28/2022 [facility] History of tobacco use MO-TOBACCO FORMER USER 07/11/2020 [facility] History of tobacco use QUIT TOBACCO USE 1-7 YEARS AGO 03/29/2009 stopped tobacco 5 years ago [facility] History of tobacco use QUIT TOBACCO USE 1-7 YEARS AGO 03/09/2008 [facility] History of tobacco use QUIT TOBACCO USE 1-7 YEARS AGO 08/19/2007 [facility] History of tobacco use QUIT TOBACCO USE 1-7 YEARS AGO 08/13/2006 stopped tobacco 4 years ago [facility] History of tobacco use QUIT TOBACCO USE 1-7 YEARS AGO 08/08/2005 [facility] History of tobacco use QUIT TOBACCO USE IN PAST YEAR 03/06/2005 Pt quit 2002 [facility] History of tobacco use QUIT TOBACCO USE IN PAST YEAR 12/24/2004 [facility] History of tobacco use HISTORY OF SMOKING 07/30/2004 Quit 3 years ago [facility] Advance Directives List of completed, amended, or rescinded Advance Directives on record at Department of Veterans Affairs facilities. An actual copy of the Directive is not included. Date Advance Directive Provider Source 03/15/2008 ADVANCE DIRECTIVE GERARDO MARSH [place] [facility]
--- OUTSIDE RECORDS SUMMARY | 2024-06-07 14:11 | XMS_ITS | Continuity of Care Document ---
Author Organization [place] - [facility], [facility] Address [address] [place] [address] Care Team Providers Care Civil Celebrant Name Role Phone ALTAGRACIA CORDOVA Referring Provider Assessment Encounter Date Assessment Date Assessment LastModified by Organization Details LastModified Time 03/08/2024 03/08/2024 88-year-old male presents for cerumen removal. Cerumen removed bilaterally without difficulty. TMs normal to inspection. He understands he may call at any time if he is interested in hearing aids at which time we will obtain updated audiogram and he will be provided medical clearance. Otherwise follow-up in 6 months for cerumen removal. [email or web address] Not available 03/08/2024 13:34:22 Plan of Treatment Reminders Order Date Submit Date Provider Last Modified By Organization Details Last Modified Time Details Appointments Establish ed 15 2024 01:00P M LOREE FIERRO PA-C Not available Not available Not available Lab None recorded. Referral None recorded. Procedures None recorded. Surgeries None recorded. Imaging None recorded. Medication Orders None recorded. Patient TargetsNo targets recorded. Patient InstructionsNo instructions recorded. Reason for Referral None Reported. Results Created Date Observation Date Name Description Value Unit Range Abnormal Flag Note LastModifiedBy Organization Detail LastModifiedTime 02/17/20 24 12/21/2019 imagi ng/di agnos tic resul t No observ ation record ed. [email or web address] Not Available 02:19:20 02/17/20 24 12/21/2019 imagi ng/di agnos tic resul t No observ ation record ed. [email or web address] Not Available 02:19:24 02/17/20 24 02/15/2021 imagi ng/di agnos tic resul t No observ ation record ed. [email or web address] Not Available 02:19:35 02/17/20 24 05/04/2023 audio gram No observ ation record ed. [email or web address] Not Available 02:19:46 02/17/20 24 12/21/2019 audio gram No observ ation record ed. [email or web address] Not Available 02:20:07 Result Notes None recorded. Problems Name Problem SNOMED Code Status Onset Date Resolution Date Notes Provider Name and Address Organization Details Recorded Time Dysphonia 28858545 Active 2016 Hoarsenes s; Note: Date Diagnosed : 07/04/2016 3:31 PM (R49.0) Not Available [facility] 4 03:07:02 Posterior rhinorrhe a 68289664 Active 2015 Postnasal drip; Note: Date Diagnosed : 06/05/2016 3:42 PM (R09.82) Not Available [facility] 4 03:07:03 Abnormal auditory perceptio n 36217771 Active 2019 Other abnormal auditory perceptio ns, left ear; Note: Date Diagnosed : 12/21/2019 5:08 PM (H93.292) Not Available [facility] 4 03:07:03 Sensorine ural hearing loss of bilateral ears 058196990 Active 2019 Sensorine ural hearing loss, bilateral ; Note: Date Diagnosed : 12/21/2019 3:28 PM (H90.3) Not Available [facility] 4 03:07:01 Impacted cerumen of bilateral ears [id number] 51360 Active 2015 Impacted cerumen, bilateral ; Note: Date Diagnosed : 06/05/2016 3:36 PM (H61.23) Not Available [facility] 4 03:07:02 Bilateral tinnitus 50888963558 02 Active 2022 Tinnitus, bilateral ; Note: Date Diagnosed : 05/04/2023 11:35 AM (H93.13) Not Available [facility] 4 03:07:01 Chronic obstructi ve pulmonary disease 35382040 Active 2018 Chronic obstructi ve pulmonary disease, unspecifi ed; Note: Date Diagnosed : 01/12/2019 1:46 PM (J44.9) Not Available [facility] 4 03:07:03 Candidal otitis externa 44354333 Active 2016 Candidal otitis externa; Note: Date Diagnosed : 12/31/2016 1:29 PM (B37.84) Not Available [facility] 4 03:07:01 Mild intermitt ent asthma 322821677 Active 2016 Mild intermitt ent asthma, uncomplic ated; Note: Date Diagnosed : 07/04/2016 3:34 PM (J45.20) Not Available [facility] 4 03:07:02 Pharyngea l dysphagia 46183328981 105 Active 2020 Dysphagia , pharyngea l phase; Note: Date Diagnosed : 01/23/2021 1:01 PM (R13.13) Not Available [facility] 4 03:07:02 Dizziness and giddiness 526475394 Active 2022 Dizziness and giddiness ; Note: Date Diagnosed : 05/04/2023 11:35 AM (R42) Not Available [facility] 4 03:07:02 Problem Notes None recorded. Procedures Surgical History Date Name Laterality Status Provider Name and Address Organization Details Recorded Time 4 Cerumen removal without microscope bilat completed LOREE FIERRO PA-C [address] [place] [address], [phone], [facility] 03/08/2024 13:33:34 4 Air & Speech Audio with Tymps (10895, 94380 & 00488) completed Lucius ÁLVAREZ [address] [place] [address], [phone], [facility] 01/08/2024 11:38:32 4 Cerumen removal without microscope bilat completed CALLUM SIMON PA-C [address] [place] [address],[address], [phone], [facility] 01/08/2024 12:08:35 Imaging Results None recorded. Procedure Notes None recorded. Medical Equipment None Reported. Allergies No known drug allergies Medications Name Sig Start Date Stop Date Status Note LastModified by Organization Details LastModified Time furosemid e 40 mg tablet 2019 active Medicati on ID: [id number] D uration Value: 90 Brand Name: furosemi de Send Method: E-Prescr ibed Sub s Allowed: subs OK Speci al Instruct ion: TK 1 T PO QD Medic ationGen ericName : furosemi de Not Available Not Available Not Available potassium chloride ER 10 mEq capsule,e xtended release TAKE 1 CAPSULE BY MOUTH EVERY DAY WITH FOOD active Not Available Not Available No t Available doxycycli ne hyclate 100 mg capsule TAKE 1 CAPSULE BY MOUTH TWICE DAILY FOR 10 DAYS 01/07 completed Not Available Not Available Not Available atorvasta tin 20 mg tablet 2019 active Medicati on ID: [id number] D uration Value: 90 Brand Name: atorvast atin Sen d Method: E-Prescr ibed Sub s Allowed: subs OK Speci al Instruct ion: TK 1 T PO QD Medic ationGen ericName : atorvast atin Not Available Not Available Not Available Lotrisone 1 %-0.05 % topical cream 12/11 completed Medicati on ID: [id number] P rescti d By Name: PAYAM Corrales nd Name: Lotrison e Send Method: E-Prescr ibed Sub s Allowed: subs OK Speci al Instruct ion: apply to external ear tid X 2 weeks Me dication GenericN shanta: Lotrison e Not Available Not Available Not Available clotrimaz ole-betam ethasone 1 %-0.05 % lotion 12/11 completed Medicati on ID: [id number] R lesly: () Brand Name: Lotrison e Send Method: E-Prescr ibed Sub s Allowed: subs OK Speci al Instruct ion: apply to external ear tid X 2 weeks Me dication GenericN shanta: Lotrison e Not Available Not Available Not Available fluoroura cil 5 % topical cream 07/12 /2024 completed Not Available Not Available Not Available clopidogr el 75 mg tablet 12/11 completed Medicati on ID: [id number] D uration Value: 30 Reason: () Brand Name: clopidog rel Send Method: E-Prescr ibed Sub s Allowed: subs OK Speci al Instruct ion: TK 1 T PO D Medica tionGene ricName: clopidog rel Not Available Not Available Not Available amlodipin e 5 mg tablet 01/07 completed Medicati on ID: [id number] D uration Value: 90 Brand Name: amlodipi ne Send Method: E-Prescr ibed Sub s Allowed: subs OK Speci al Instruct ion: TK 1 TS PO ONCE DAILY FOR 90 DAYS Med icationG enericNa me: amlodipi ne Medic ation ID: [id number] D uration Value: 90 Brand Name: amlodipi ne Send Method: E-Prescr ibed Sub s Allowed: subs OK Speci al Instruct ion: TK 1 TS PO ONCE DAILY FOR 90 DAYS Med icationG enericNa me: amlodipi ne Not Available Not Available Not Available tamsulosi n 0.4 mg capsule 2019 active Medicati on ID: [id number] D uration Value: 30 Brand Name: tamsulos in Send Method: E-Prescr ibed Sub s Allowed: subs OK Speci al Instruct ion: TK 1 C PO QD Medic ationGen ericName : tamsulos in Not Available Not Available Not Available amlodipin e 10 mg tablet 01/07 completed Medicati on ID: [id number] B rand Name: amlodipi ne Send Method: E-Prescr ibed Sub s Allowed: subs OK Medic ationGen ericName : amlodipi ne Medic ation ID: [id number] B rand Name: amlodipi ne Send Method: E-Prescr ibed Sub s Allowed: subs OK Medic ationGen ericName : amlodipi ne Not Available Not Available Not Available metronida zole 0.75 % topical cream APPLY TOPICALL Y TO FACE TWICE DAILY FOR ROSACEA active Not Available Not Available No t Available furosemid e 20 mg tablet 12/11 completed Medicati on ID: [id number] D uration Value: 30 Reason: () Brand Name: furosemi de Send Method: E-Prescr ibed Sub s Allowed: subs OK Medic ationGen ericName : furosemi de Not Available Not Available Not Available metoprolo l succinate ER 25 mg tablet,ex tended release 24 hr 12/11 completed Medicati on ID: [id number] D uration Value: 30 Reason: () Brand Name: metoprol ol succinat e Send Method: E-Prescr ibed Sub s Allowed: subs OK Medic ationGen ericName : metoprol ol succinat e Not Available Not Available Not Available fluticaso ne propionat e 50 mcg/actua tion nasal spray,mitchell pension USE 1 SPRAY INTO EACH NOSTRIL EVERY DAY active Not Available Not Available No t Available ipratropi um bromide 21 mcg (0.03 %) nasal spray 2022 active Medicati on ID: [id number] D uration Value: 30 Brand Name: ipratrop ium bromide Send Method: E-Prescr ibed Sub s Allowed: subs OK Speci al Instruct ion: 2 sprays in each nostril 1-3 times a day Medi cationGe nericNam e: ipratrop ium bromide Not Available Not Available Not Available finasteri de 5 mg tablet 2019 active Medicati on ID: [id number] D uration Value: 90 Brand Name: finaster velia Send Method: E-Prescr ibed Sub s Allowed: subs OK Speci al Instruct ion: TK 1 T PO QD Medic ationGen ericName : finaster velia Not Available Not Available Not Available gentamici n 0.1 % topical ointment 01/07 completed Medicati on ID: [id number] D uration Value: 7 Brand Name: gentamic in Send Method: E-Prescr ibed Sub s Allowed: subs OK Speci al Instruct ion: APPLY TOPICALL Y AA ONCE DAILY Me dication GenericN shanta: gentamic in Medic ation ID: [id number] D uration Value: 7 Brand Name: gentamic in Send Method: E-Prescr ibed Sub s Allowed: subs OK Speci al Instruct ion: APPLY TOPICALL Y AA ONCE DAILY Me dication GenericN shanta: gentamic in Not Available Not Available Not Available Ventolin HFA 90 mcg/actua tion aerosol inhaler 2019 active Medicati on ID: [id number] D uration Value: 16 Brand Name: Ventolin HFA Send Method: E-Prescr ibed Sub s Allowed: subs OK Speci al Instruct ion: INHALE 2 PUFFS PRN Q 4 HOURS Me dication GenericN shanta: Ventolin HFA Not Available Not Available Not Available tadalafil 5 mg tablet TAKE 1 TABLET BY MOUTH EVERY DAY FOR FOOT ULCER active Not Available Not Available No t Available valsartan 320 mg-hydroc hlorothia zide 12.5 mg tablet 12/11 completed Medicati on ID: [id number] D uration Value: 90 Reason: () Brand Name: valsarta n-hydroc hlorothi azide Se nd Method: E-Prescr ibed Sub s Allowed: subs OK Medic ationGen ericName : valsarta n-hydroc hlorothi azide Not Available Not Available Not Available Xarelto 20 mg tablet 2019 active Medicati on ID: [id number] D uration Value: 30 Brand Name: Xarelto Send Method: E-Prescr ibed Sub s Allowed: subs OK Speci al Instruct ion: TK 1 T PO D WF Medic ationGen ericName : Xarelto Not Available Not Available Not Available Myrbetriq 50 mg tablet,ex tended release 01/07 completed Medicati on ID: [id number] D uration Value: 30 Brand Name: Myrbetri q Send Method: E-Prescr ibed Sub s Allowed: subs OK Medic ationGen ericName : Myrbetri q Medica tion ID: [id number] D uration Value: 30 Brand Name: Myrbetri q Send Method: E-Prescr ibed Sub s Allowed: subs OK Medic ationGen ericName : Myrbetri q Not Available Not Available Not Available Eliquis 5 mg tablet 12/11 completed Medicati on ID: [id number] D uration Value: 90 Reason: () Brand Name: Eliquis Send Method: E-Prescr ibed Sub s Allowed: subs OK Medic ationGen ericName : Eliquis Not Available Not Available Not Available Anoro Ellipta 62.5 mcg-25 mcg/actua tion powder for inhalatio n 01/07 completed Medicati on ID: [id number] D uration Value: 30 Brand Name: Anoro Ellipta Send Method: E-Prescr ibed Sub s Allowed: subs OK Speci al Instruct ion: INHALE 1 PUFF PO ONCE DAILY FOR 30 DAYS Med icationG enericNa me: Anoro Ellipta Medicati on ID: [id number] D uration Value: 30 Brand Name: Anoro Ellipta Send Method: E-Prescr ibed Sub s Allowed: subs OK Speci al Instruct ion: INHALE 1 PUFF PO ONCE DAILY FOR 30 DAYS Med icationG enericNa me: Anoro Ellipta Not Available Not Available Not Available Stiolto Respimat 2.5 mcg-2.5 mcg/actua tion solution for inhalatio n 2015 active Medicati on ID: [id number] B rand Name: Stiolto Respimat Send Method: E-Prescr ibed Sub s Allowed: subs OK Medic ationGen ericName : Stiolto Respimat Not Available Not Available Not Available Breo Ellipta 200 mcg-25 mcg/dose powder for inhalatio n 12/11 completed Medicati on ID: [id number] D uration Value: 30 Reason: () Brand Name: Breo Ellipta Send Method: E-Prescr ibed Sub s Allowed: subs OK Speci al Instruct ion: INHALE 1 PUFF PO D Medica tionGene ricName: Breo Ellipta Not Available Not Available Not Available Vitals None Recorded Social History None recorded. Functional Status None recorded. Mental Status None recorded. Family History Nothing Reported. Medical History No medical history recorded. Past Encounters Encounter ID Performer Location Encounter Start Date Encounter Closed Date Diagnosis/Indication Diagnosis SNOMED-CT Code Diagnosis ICD10 Code [id number] BONNIE MACHADO MD [facility] [address] [address] 03/08/2024 13:08:02 03/08/2024 13:34:46 Impacted cerumen of bilateral ears [id number] 109801 H61.23 Sensorineu ral hearing loss of bilateral ears 412968240 H90.3 Health Concerns Section Related Observation LastModified by Organization Detai ls LastModified Time None Recorded Concern Status LastModified by Organization Details LastModified Time None Recorded Payers Encounter Date Sequence Insurance Name Policy Number Policy Starks Covered Member ID Starks Member ID Guarantor Name 03/08/2024 2 [facility] (MEDICARE SUPPLEMENT) [employer] Felton [id number] [employer] Lira Ольгаabimael 03/08/2024 1 MEDICARE B-[place]: [employer] Felton [id number] Duke Rolonabimael Gunn Notes Date Note Type Note Provider Name and Address Organization Details Recorded Time 03/08/2024 text/html 88-year-old male with sensorineural hearing loss presents for cerumen removal. He is a candidate for hearing aids but has not been interested in obtaining them yet. Continues to do fairly well without them. BONNIE MACHADO MD [address] [place] [address], [phone], [facility] - [facility] 03/09/2024 08:43:49
--- OUTSIDE RECORDS SUMMARY | 2024-06-07 14:11 | XMS_ITS ---
Author Name [facility] [place] Address [address] [place] [address] Care Team Providers Care Qa Consultant Name Role Phone KARRI FARIA Primary Care Provider Unava ilgilbert Insurance Providers: All historical and current Section Date Range: From patient's date of to the date document was created. This section includes the names of all active insurance providers for the patient. Insurance Provider Type of Coverage Plan Name Start of Policy Coverage End of Policy Coverage Group Number Member ID Insurance Provider's Telephone Number Policy Starks's Name Patient's Relationship to Policy Starks [employer] ([id number]) PRESCRIPT ION [facility] TIES Jan 05, 2009 [id number] NEVERSMICHAELA PATIENT [facility] MEDICARE [facility] IND Jun 29, 2016 MEDICAR E SUPPLEM E [id number] NEVERS,MICHAELA BROCK PATIENT MEDICARE (WN) MEDICARE (M) PART A October 28, 1999 PART A [id number] ADAMS SHEEHAN JR PATIENT MEDICARE (WNR) MEDICARE (M) PART B October 28, 1999 PART B [id number] ADAMS SHEEHAN JR PATIENT UMR MEDIGAP PLAN C BLYTHE RAMESHI TIES Apr 05, 2007 [id number] [phone] NEVERS,MICHAELA VINOD PATIENT Selected Encounter This section includes the information on record at [place] for the Encounter. Date/Time Encounter Type Encounter Description Reason Provider Source Jun 11, 2023 09:22 AM QNHP OL DIG ASSMT&MGMT 5-10 CLINICAL PHARMACY ICD-10-CM Z04.89 Encounter for examination and observation for oth reasons BOBO VERDUGO [employer] Encounter Template Text not used by [place] Assessments - Encounter Diagnoses This section includes the primary and secondary diagnoses documented for the Encounter. Date/Time Primary/Secondary Diagnosis Diagnosis Name Provider Source Jun 12, 2023 12:50 PM PRIMARY Encounter for examination and observation for oth reasons BOBO VERDUGO [facility] Plan of Treatment: Future Appointments (+ 6 months) and Future Tests (+/- 45 days) The Plan of Treatment section includes future care activities for the patient from all [place] [facility] This section includes future appointments and future orders which are active, pending or scheduled. Future Appointments This section includes appointments that were scheduled to occur 6 months from the date of the Encounter, up to a maximum of 20 appointments. The data comes from all [facility]. Appointment Date/Time Appointment Type Appointme nt Facility Name Aug 25, 2023 01:00 PM AMBULATORY - MEDICINE [facility] Oct 23, 2023 10:00 AM AMBULATORY MEDICINE [facility] November 25, 2023 01:00 PM AMBULATORY MEDICINE [facility] Active, Pending, and Scheduled Orders This section includes a listing of several types of active, pending, and scheduled orders, including clinic medications orders, diagnostic test orders, procedure orders and consult orders; where the start date of the order is 45 days before the date of the Encounter or 45 days after the date of theEncounter. The data comes from all [facility]. Test Date/Time Test Type Test Details Facility Name May 11, 2023 12:00 AM Laboratory - Chemistry Order CREATININE (eGFR 2020) BLOOD (SST-SERUM) [facility] May 11, 2023 12:00 AM Laboratory - Chemistry Order CBC BLOOD (LAV-BLOOD) [facility] Jun 12, 2023 12:00 AM Laboratory - Chemistry Order CBC BLOOD (LAV-BLOOD) [facility] Jun 12, 2023 12:00 AM Laboratory - Chemistry Order CREATININE (eGFR 2020) BLOOD (SST-SERUM) [facility] Lab Results: +/- 30 days of the encounter This section includes the Chemistry and Hematology Lab Results on record with [place] for the patient. Radiology Reports and Pathology Reports are provided separately, in subsequent sections. Lab Results This section contains the Chemistry/Hematology Results that were resulted 30 days before or 30 daysafter the date of the Encounter. Date/Time Source Result Type Result - Unit Interpretation Reference Range Comment Jul 09, 2023 01:00 PM [facility] MICROALBUMIN CREATININE RATIO PANEL Specimen Type: URINE No comment entered. Ordering Provider: CARLOS FARIA Report Released Date/Time: May 14, 2023 02:12 PM Reporting Lab: [address] [address] Performing Lab: [address] [address] MICROALBUMIN/C REATININE RATIO 15.7 mg/g 0-29.9 MICROALBUMIN,Q UANTITATIVE 0.8 mg/dL RR UNAVAIL CREATININE URINE 51.04 mg/dL Jul 08, 2023 09:45 AM [facility] HEMOGLOBIN A1C PANEL Specimen Type: BLOOD Comment: Values obtained from A1C measurements can vary. For atypical A1C assays, a reported value of 7.0 could actually be between 6.72 and 7.28 if measured by a reference method. A reported value of 9.0 could actually be between 8.73 and 9.27. Ref: http://www.ngs p.org/CAPdata. asp Ordering Provider: CARLOS FARIA Report Released Date/Time: May 14, 2023 02:12 PM Reporting Lab: [address] [address] Performing Lab: [address] [address] HEMOGLOBIN A1C 5.6 4.0-5.6 Jul 08, 2023 09:45 AM [facility] CBC AND DIFF (AUTO) Specimen Type: BLOOD No comment entered. Ordering Provider: CARLOS FARIA Report Released Date/Time: May 14, 2023 02:12 PM Reporting Lab: [address] [address] Performing Lab: [address] [address] WBC 4.67 10*3/uL 4.50-11.00 RBC 3.90 10*6/uL L 4.23-5.66 HGB 12.1 g/dL L 12.8-17 HCT 38.0 L 39.2-50.4 MCV 97.4 fL 82-99 MCHC 31.8 g/dL 30.8-35.1 PLT 223 10*3/uL 140-360 RDW-CV 14.5 12.0-16.0 [place], Abs 0.47 10*3/uL 0.30-1.10 MCH 31.0 pg 26.2-32.6 Neut % 74.8 43.7-75.8 Lymph % 12.6 L 14.0-42.3 [place] % 10.1 5.1-13.7 Eos % 1.7 0.4-6.8 Baso % 0.6 0.1-2.0 Neut, Abs 3.49 10*3/uL 2.20-7.60 Lymph, Abs 0.59 10*3/uL L 1.00-3.20 Eos, Abs 0.08 10*3/uL 0.03-0.44 Baso, Abs 0.03 10*3/uL 0.01-0.13 Immature Gran % 0.2 0.0-0.7 Immature Gran, Abs 0.01 10*3/uL 0.00-0.06 Jul 08, 2023 09:45 AM [facility] BASIC METABOLIC PANEL (fasting) Specimen Type: SERUM No comment entered. Ordering Provider: CARLOS FARIA Report Released Date/Time: May 14, 2023 02:12 PM Reporting Lab: [address] [address] Performing Lab: [facility] [address] [facility] [address] UREA NITROGEN 52 mg/dL H 7-25 GLUCOSE 94 mg/dL 65-100 SODIUM 137 mmol/L 135-145 POTASSIUM 4.3 mmol/L 3.5-5.0 CHLORIDE 103 mmol/L 100-110 CO2 24 meq/L 20-30 CREATININE, Serum 1.13 mg/dL 0.50-1.40 eGFR(CKD-EPI 2020) 62 mL/min >60 Jul 08, 2023 09:45 AM [facility] LIPID PANEL FASTING Specimen Type: SERUM No comment entered. Ordering Provider: CARLOS FARIA Report Released Date/Time: May 14, 2023 02:12 PM Reporting Lab: [address] [address] Performing Lab: [address] [address] CHOLESTEROL 126 mg/dL TRIGLYCERIDE 75 mg/dL 0-150 LDL calculated 65 mg/dL 0-129 CHOL/HDL 2.7 HDL CHOLESTEROL 46 mg/dL 40-60 Jul 08, 2023 09:45 AM [facility] LIVER FUNCTION Specimen Type: SERUM No comment entered. Ordering Provider: CARLOS FARIA Report Released Date/Time: May 14, 2023 02:12 PM Reporting Lab: [address] [address] Performing Lab: [address] [address] PROTEIN,TOTAL 7.4 g/dL 6.0-8.3 ALBUMIN 4.1 g/dL 3.5-5.0 ALKALINE PHOSPHATASE 65 U/L 40-150 AST 20 U/L 5-34 ALT 8 U/L BILIRUBIN, TOTAL 1.0 mg/dL 0.2-1.2 Jul 08, 2023 09:45 AM [facility] TSH Specimen Type: SERUM No comment entered. Ordering Provider: CARLOS FARIA Report Released Date/Time: May 14, 2023 02:12 PM Reporting Lab: [place] [facility]EINARL DO[facility] [address] [address] Performing Lab: [place] ZEINA [facility] [address] [address] TSH 4.73 u[IU]/mL 0.35-5.00 Advance Directives: All historical and current Section Date Range: From patient's date of to the date document was created. This section includes ALL of a patient's completed or amended [place] Advance and Rescinded Directives. The entries below indicate that a directive exists for the patient, but an actual copy is not included with this document. The data comes from all [place] facilities. Date Advance Directives Provider Source Mar 15, 2008 ADVANCE DIRECTIVE GERARDO MARSH [facility] Encounter Notes: All associated encounter notes This section contains the clinical notes associated to the Encounter. Date/Time Encounter Note(s) Provider Source Jun 11, 2023 09:22 AM PHARMACY MEDICATIO N MGT NOTE: LOCAL TITLE: PHARMACY ANTICOAGULATION NOTE STANDARD TITLE: PHARMACY MEDICATION MGT NOTE DATE OF NOTE: JUN 11, 2023@09:22 ENTRY DATE: JUN 11, 2023@09:22:23 AUTHOR: GRETA CRUZ COSIGNER: URGENCY: STATUS: COMPLETED PHARMACY ANTICOAGULATION NOTE Has ADDENDA ANTICOAGULATION DOAC MONITORING NOTE SUBJECTIVE: Patient identified through the DOAC population Management Tool based on the following criteria: [ ] Dosing Issue [ ] Critical Drug Interaction [ ] Cancer Treatment [ ] Active NSAID [ X ] Labs Overdue [ ] Prosthetic Valve Replacement [ ] Notable Lab Value [ ] Overdue for Refill [ ] Other: Comments: CBC and Serum creatinine recommended every 6mths for this patient on DOAC therapy OBJECTIVE: Indication for anticoagulation: [ X ] Atrial fibrilation [ ] Atrial flutter [ ] VTE (DVT or PE) [ ] Post-op DVT prophylaxis [ ] Other: Most recent lab values include the following: HGB: HGB Collection DT Specimen Test Name Result Units Ref Range 05/21/2022 10:08 BLOOD !! HGB 11.7 L g/dL 12.8 - 17 !! Indicates COMMENTS AVAILABLE...Refer to Interim Lab Report. PLT: WBC Collection DT Specimen Test Name Result Units Ref Range 05/21/2022 10:08 BLOOD !! WBC 5.23 K/cmm 4.50 - 11.00 !! Indicates COMMENTS AVAILABLE...Refer to Interim Lab Report. Liver Function Tests No data available for: AST ALT ALKALINE PHOSPHATASE ALBUMIN BILIRUBIN, TOTAL LDH PROTEIN,TOTAL HEIGHT: 73 in [185.4 cm] (05/25/2023 13:48) WEIGHT: 154.1 lb [69.90 kg] (05/25/2023 13:45) BMI: BMI: 20.4 CREATININE-EGFR - NONE FOUND CRCL IBW: CrCl(est): 61.6 mL/min (Creat:0.82 03/06/22) CRCL ACT: No Creat CRCL ADJ: 61.6 mL/min (03/06/22) ASSESSMENT: Action required? [ X ] Yes [ ] No Comments: will have [facility] order updated labs. will mail letter to patient asking that they have labs completed within the next 30 days PLAN: [ ] No action required, dismiss flag [ X ] Will intervene: [ X ] Patient education via phone/letter [ ] Schedule phone/cssy-oh-ahsc follow up [ X ] Lab ordered [ ] Discontinue interacting medication [ ] Discontinue DOAC [ ] Change to alternative DOAC [ ] Change DOAC dose [ ] Notify PCP [ ] Consult cardiology/hematology [ ] Other: Time spent: 10 min /josue/ GRETA E ANTHONY Clinical Financial Systems Director Signed: 06/11/2023 09:23 Receipt Acknowledged By: 06/11/2023 09:27 /josue/ XUAN SILVESTRE CPHT Clinical Financial Systems Director 06/12/2023 12:50 /josue/ Bobo Verdugo PharmD, [place] Clinical Bench Machine Operator 06/12/2023 ADDENDUM STATUS: COMPLETED Reviewed above note; agree w/ A/P as documented. /josue/ Bobo Verdugo PharmD, [place] Clinical Bench Machine Operator Signed: 06/12/2023 12:50 GRETA CRUZ CNTRL [facility] [place] [facility]
--- OUTSIDE RECORDS SUMMARY | 2024-06-07 14:12 | XMS_ITS ---
Author Name [place] Address [address] [place] [address] Care Team Providers Care Industrial X Ray Operator Name Role Phone KARRI FARIA Primary Care Provider Maryann ilgilbert Insurance Providers: All historical and current [...] Patient's Relationship to Policy Starks [employer] ([id number]) PRESCRIPT ION [place] RAMESH TIES Jan 05, 2009 [id number] NEVERSMICHAELA PATIENT [facility] MEDICARE SUPPLEMEN TAL [place] IND Jun 29, 2016 MEDICAR E SUPPLEM E [id number] NEVERSMICHAELA PATIENT MEDICARE (WNR) MEDICARE (M) PART A October 28, 1999 PART A [id number] ADAMS SHEEHAN JR PATIENT MEDICARE (WNR) MEDICARE (M) PART B October 28, 1999 PART B [id number] ADAMS SHEEHAN JR PATIENT UMR MEDIGAP PLAN C MOBILE KEILY CHANDLERI TIES Apr 05, 2007 [id number] MICHAELA SHEEHAN PATIENT Selected Encounter This section includes the information on record at [place] for the Encounter. Date/Time Encounter Type Encounter Description Reason Pro vider Source Jul 03, 2023 03:58 PM Outpatient Encounter ADMIN PAT ACTIVTIES (MASNONCT) IHE Encounter Template Text not used by [place] Plan of Treatment: Future Appointments (+ 6 months) and Future Tests (+/- 45 days) The Plan of Treatment section includes future care activities for the patient from all [place] [facility]. This section includes future appointments and future orders which are active, pending or scheduled. Future Appointments This section includes appointments that were scheduled to occur 6 months from the date of the Encounter, up to a maximum of 20 appointments. The data comes from all [facility]. Appointment Date/Time Appointment Type Appointme nt Facility Name Aug 25, 2023 01:00 PM AMBULATORY - MEDICINE [facility] Oct 23, 2023 10:00 AM AMBULATORY MEDICINE [facility] November 25, 2023 01:00 PM AMBULATORY MEDICINE [facility] Active, Pending, and Scheduled Orders This section includes a listing of several types of active, pending, and scheduled orders, including clinic medications orders, diagnostic test orders, procedure orders and consult orders; where the start date of the order is 45 days before the date of the Encounter or 45 days after the date of theEncounter. The data comes from all [facility]. Test Date/Time Test Type Test Details Facility Name Jun 12, 2023 12:00 AM Laboratory - Chemistry Order CBC BLOOD (LAV-BLOOD) [facility] Jun 12, 2023 12:00 AM Laboratory - Chemistry Order CREATININE (eGFR 2020) BLOOD (SST-SERUM) [facility] Lab Results: +/- 30 days of the encounter This section includes the Chemistry and Hematology Lab Results on record with [place] for the patient. Radiology Reports and Pathology Reports are provided separately, in subsequent sections. Lab Results This section contains the Chemistry/Hematology Results that were resulted 30 days before or 30 daysafter the date of the Encounter. Date/Time Source Result Type Result - Unit Interpretation Reference Range Comment Jul 09, 2023 01:00 PM [facility] MICROALBUMIN CREATININE RATIO PANEL Specimen Type: URINE No comment entered. Ordering Provider: CARLOS FARIA Report Released Date/Time: May 14, 2023 02:12 PM Reporting Lab: [facility] [address] [facility] [address] Performing Lab: [facility] [address] [facility] [address] MICROALBUMIN/C REATININE RATIO 15.7 mg/g 0-29.9 MICROALBUMIN,Q UANTITATIVE 0.8 mg/dL RR UNAVAIL CREATININE URINE 51.04 mg/dL Jul 08, 2023 09:45 AM [facility] HEMOGLOBIN A1C PANEL Specimen Type: BLOOD [...] May 14, 2023 02:12 PM Reporting Lab: [facility] [address] [facility] [address] Performing Lab: [address] [address] HEMOGLOBIN A1C 5.6 4.0-5.6 Jul 08, 2023 09:45 AM [facility] CBC AND DIFF (AUTO) Specimen Type: BLOOD No comment entered. Ordering Provider: CARLOS FARIA Report Released Date/Time: May 14, 2023 02:12 PM Reporting Lab: [facility] [address] [facility] [address] Performing Lab: [address] [address] WBC 4.67 10*3/uL 4.50-11.00 RBC 3.90 10*6/uL L 4.23-5.66 HGB 12.1 g/dL L 12.8-17 HCT 38.0 L 39.2-50.4 MCV 97.4 fL 82-99 MCHC 31.8 g/dL 30.8-35.1 PLT 223 10*3/uL 140-360 RDW-CV 14.5 12.0-16.0 [place], Abs 0.47 10*3/uL 0.30-1.10 MCH 31.0 pg 26.2-32.6 Neut % 74.8 43.7-75.8 Lymph % 12.6 L 14.0-42.3 [place] % 10.1 5.1-13.7 Eos % 1.7 0.4-6.8 Baso % 0.6 0.1-2.0 Neut, Abs 3.49 10*3/uL 2.20-7.60 Lymph, Abs 0.59 10*3/uL L 1.00-3.20 Eos, Abs 0.08 10*3/uL 0.03-0.44 Baso, Abs 0.03 10*3/uL 0.01-0.13 Immature Gran % 0.2 0.0-0.7 Immature Gran, Abs 0.01 10*3/uL 0.00-0.06 Jul 08, 2023 09:45 AM [facility] BASIC METABOLIC PANEL (fasting) Specimen Type: SERUM No comment entered. Ordering Provider: CARLOS FARIA Report Released Date/Time: May 14, 2023 02:12 PM Reporting Lab: [address] [address] Performing Lab: [address] [address] UREA NITROGEN 52 mg/dL H 7-25 GLUCOSE 94 mg/dL 65-100 SODIUM 137 mmol/L 135-145 POTASSIUM 4.3 mmol/L 3.5-5.0 CHLORIDE 103 mmol/L 100-110 CO2 24 meq/L 20-30 CREATININE, Serum 1.13 mg/dL 0.50-1.40 eGFR(CKD-EPI 2020) 62 mL/min >60 Jul 08, 2023 09:45 AM [facility] LIPID PANEL FASTING Specimen Type: SERUM No comment entered. Ordering Provider: CARLOS FARIA Report Released Date/Time: May 14, 2023 02:12 PM Reporting Lab: [address] [address] Performing Lab: [address] [address] CHOLESTEROL 126 mg/dL TRIGLYCERIDE 75 mg/dL 0-150 LDL calculated 65 mg/dL 0-129 CHOL/HDL 2.7 HDL CHOLESTEROL 46 mg/dL 40-60 Jul 08, 2023 09:45 AM [facility] LIVER FUNCTION Specimen Type: SERUM No comment entered. Ordering Provider: CARLOS FARIA Report Released Date/Time: May 14, 2023 02:12 PM Reporting Lab: [address] [address] Performing Lab: [address] [address] PROTEIN,TOTAL 7.4 g/dL 6.0-8.3 ALBUMIN 4.1 g/dL 3.5-5.0 ALKALINE PHOSPHATASE 65 U/L 40-150 AST 20 U/L 5-34 ALT 8 U/L BILIRUBIN, TOTAL 1.0 mg/dL 0.2-1.2 Jul 08, 2023 09:45 AM [facility] TSH Specimen Type: SERUM No comment entered. Ordering Provider: CARLOS FARIA Report Released Date/Time: May 14, 2023 02:12 PM Reporting Lab: [address] [address] Performing Lab: [address] [address] TSH 4.73 u[IU]/mL 0.35-5.00 Advance Directives: All historical and current Section Date Range: From patient's date of to the date document was created. This section includes ALL of a patient's completed or amended [place] Advance and Rescinded Directives. The entries below indicate that a directive exists for the patient, but an actual copy is not included with this document. The data comes from all [place] facilities. Date Advance Directives Provider Source Mar 15, 2008 ADVANCE DIRECTIVE SOLITARIO MARSHELLE [place] CNT RL WSN [facility] Encounter Notes: All associated encounter notes This section contains the clinical notes associated to the Encounter. Date/Time Encounter Note(s) Provider Source Jul 03, 2023 03:58 PM ADMINISTRATIVE NOT E: LOCAL TITLE: CCC: SCHEDULING ADMINISTRATION STANDARD TITLE: ADMINISTRATIVE NOTE DATE OF NOTE: JUL 03, 2023@15:58:51 ENTRY DATE: JUL 03, 2023@15:58:51 AUTHOR: JOSHUA MOLINA EXP COSIGNER: URGENCY: STATUS: COMPLETED Patient Demographics Patient Name: ADAMS SHEEHAN Patient Primary Phone: [phone] Patient Primary [address]: [address] [place] [address] Patient : 1935 Patient Age: 87 Caller/Recipient Relation to Patient: Self Administrative Administrative Note Reason: Medication Renewal Medications Refill/Renewal Request: SECOND REQUEST Minerva is requesting refill of Rx #[id number] - ATORVASTATIN CALCIUM 40MG TAB for delivery. He mistakenly took a whole pill instead of the 1/2 of the pill as directed. Notes indicate pharmacy was made aware of this request on 06/24/2023 however, no record of mailing is found. is COMPLETELY OUT of medication. Please call with a status update. /josue/ JOSHUA MOLINA VISN1 [facility] AMSA Signed: 07/03/2023 15:58 Receipt Acknowledged By: 07/16/2023 08:51 /es/ KARRI FARIA MD PHYSICIAN 07/04/2023 14:54 /es/ NINA NEGRETEN,RN-BC REGISTERED NURSE (RN) JOSHUA MOLINA [place] [facility]
--- OUTSIDE RECORDS SUMMARY | 2024-06-07 14:12 | XMS_ITS ---
Author Name [facility] [place] Address [address] [place] [id number] Care Team Providers Care Green Chain Puller Name Role Phone KARRI FARIA Primary Care [...] Patient's Relationship to Policy [employer] ([id number]) PRESCRIPT ION [place] RAMESH TIES Jan 05, 2009 [id number] NEVERSMICHAELA PATIENT [facility] MEDICARE SUPPLEMEN TAL MA IND Jun 29, 2016 MEDICAR E SUPPLEM E [id number] NEVERSMICHAELA PATIENT MEDICARE (WNR) MEDICARE (M) PART A October 28, 1999 PART A [id number] ADAMS SHEEHAN JR PATIENT MEDICARE (WNR) MEDICARE (M) PART B October 28, 1999 PART B [id number] ADAMS SHEEHAN JR PATIENT UMR MEDIGAP PLAN C [place] KEILY CHANDLERI TIES Apr 05, 2007 [id number] MICHAELA SHEEHAN PATIENT Selected Encounter This section includes the information on record at [place] for the Encounter. Date/Time Encounter Type Encounter Description Reason Pro vider Source Jun 19, 2023 02:17 PM Outpatient Encounter ADMIN PAT ACTIVTIES (MASNONCT) IHE Encounter Template Text not used by [place] Plan of Treatment: Future Appointments (+ 6 months) and Future Tests (+/- 45 days) The Plan of Treatment section includes future care activities for the [facility] [place] [facility] This section includes future appointments and future orders which are active, pending or scheduled. Future Appointments This section includes appointments that were scheduled to occur 6 months from the date of the Encounter, up to a maximum of 20 appointments. The data comes from all [facility]. Appointment Date/Time Appointment Type Appointme nt Facility Name Aug 25, 2023 01:00 PM AMBULATORY - MEDICINE [facility] Oct 23, 2023 10:00 AM AMBULATORY MEDICINE [facility] November 25, 2023 01:00 PM AMBULATORY MEDICINE [facility] Active, Pending, and Scheduled Orders This section includes a listing of several types of active, pending, and scheduled orders, including clinic medications orders, diagnostic test orders, procedure orders and consult orders; where the start date of the order is 45 days before the date of the Encounter or 45 days after the date of theEncounter. The data comes from all [facility]. Test Date/Time Test Type Test Details Facility Name May 11, 2023 12:00 AM Laboratory - Chemistry Order CREATININE (eGFR 2020) BLOOD (SST-SERUM) [facility] May 11, 2023 12:00 AM Laboratory - Chemistry Order CBC BLOOD (LAV-BLOOD) [facility] Jun 12, 2023 12:00 AM Laboratory - Chemistry Order CREATININE (eGFR 2020) BLOOD (SST-SERUM) [facility] Jun 12, 2023 12:00 AM Laboratory - Chemistry Order CBC BLOOD (LAV-BLOOD) [facility] Lab Results: +/- 30 days of the encounter This section includes the Chemistry and Hematology Lab Results on record with [place] for the patient. Radiology Reports and Pathology Reports are provided separately, in subsequent sections. Lab Results This section contains the Chemistry/Hematology Results that were resulted 30 days before or 30 daysafter the date of the Encounter. Date/Time Source Result Type Result - Unit Interpretation Reference Range Comment Jul 09, 2023 01:00 PM [facility] MICROALBUMIN CREATININE RATIO PANEL Specimen Type: URINE No comment entered. Ordering Provider: CARLOS FARIA Report Released Date/Time: May 14, 2023 02:12 PM Reporting Lab: [address] [address] Performing Lab: [address] [address] MICROALBUMIN/C REATININE RATIO 15.7 mg/g 0-29.9 MICROALBUMIN,Q UANTITATIVE 0.8 mg/dL RR UNAVAIL CREATININE URINE 51.04 mg/dL Jul 08, 2023 09:45 AM [facility] HEMOGLOBIN A1C PANEL Specimen Type: BLOOD Comment: [...] May 14, 2023 02:12 PM [facility] [address] Performing [facility]: [facility] [address] HEMOGLOBIN A1C 5.6 4.0-5.6 Jul 08, 2023 09:45 AM [facility] CBC AND DIFF (AUTO) Specimen Type: BLOOD No comment entered. Ordering Provider: CARLOS FARIA Report Released Date/Time: May 14, 2023 02:12 PM Reporting [facility]: [facility] [address] Performing Lab: [facility] [address] [facility] [address] WBC 4.67 10*3/uL 4.50-11.00 RBC 3.90 10*6/uL L 4.23-5.66 HGB 12.1 g/dL L 12.8-17 HCT 38.0 L 39.2-50.4 MCV 97.4 fL 82-99 MCHC 31.8 g/dL 30.8-35.1 PLT 223 10*3/uL 140-360 RDW-CV 14.5 12.0-16.0 Glascock, Abs 0.47 10*3/uL 0.30-1.10 MCH 31.0 pg 26.2-32.6 Neut % 74.8 43.7-75.8 Lymph % 12.6 L 14.0-42.3 Glascock % 10.1 5.1-13.7 Eos % 1.7 0.4-6.8 Baso % 0.6 0.1-2.0 Neut, Abs 3.49 10*3/uL 2.20-7.60 Lymph, Abs 0.59 10*3/uL L 1.00-3.20 Eos, Abs 0.08 10*3/uL 0.03-0.44 Baso, Abs 0.03 10*3/uL 0.01-0.13 Immature Gran % 0.2 0.0-0.7 Immature Gran, Abs 0.01 10*3/uL 0.00-0.06 Jul 08, 2023 09:45 AM [facility] BASIC METABOLIC PANEL (fasting) Specimen Type: SERUM No comment entered. Ordering Provider: CARLOS FARIA Report Released Date/Time: May 14, 2023 02:12 PM Reporting Lab: [facility] [address] [facility] [address] Performing Lab: [address] [address] UREA NITROGEN 52 mg/dL H 7-25 GLUCOSE 94 mg/dL 65-100 SODIUM 137 mmol/L 135-145 POTASSIUM 4.3 mmol/L 3.5-5.0 CHLORIDE 103 mmol/L 100-110 CO2 24 meq/L 20-30 CREATININE, Serum 1.13 mg/dL 0.50-1.40 eGFR(CKD-EPI 2020) 62 mL/min >60 Jul 08, 2023 09:45 AM [facility] LIPID PANEL FASTING Specimen Type: SERUM No comment entered. Ordering Provider: CARLOS FARIA Report Released Date/Time: May 14, 2023 02:12 PM Reporting Lab: [facility] [address] [facility] [address] Performing Lab: [facility] [address] [facility] [address] CHOLESTEROL 126 mg/dL TRIGLYCERIDE 75 mg/dL 0-150 LDL calculated 65 mg/dL 0-129 CHOL/HDL 2.7 HDL CHOLESTEROL 46 mg/dL 40-60 Jul 08, 2023 09:45 AM [facility] LIVER FUNCTION Specimen Type: SERUM No comment entered. Ordering Provider: CARLOS FARIA Report Released Date/Time: May 14, 2023 02:12 PM Reporting Lab: [facility] [address] [facility] [address] Performing Lab: [facility] [address] [facility] [address] PROTEIN,TOTAL 7.4 g/dL 6.0-8.3 ALBUMIN 4.1 g/dL 3.5-5.0 ALKALINE PHOSPHATASE 65 U/L 40-150 AST 20 U/L 5-34 ALT 8 U/L BILIRUBIN, TOTAL 1.0 mg/dL 0.2-1.2 Jul 08, 2023 09:45 AM [facility] TSH Specimen Type: SERUM No comment entered. Ordering Provider: CARLOS FARIA Report Released Date/Time: May 14, 2023 02:12 PM Reporting Lab: [facility] [address] [facility] [address] Performing Lab: [address] [address] TSH 4.73 u[IU]/mL 0.35-5.00 Advance Directives: All historical and current Section Date Range: From patient's date of to the date document was created. This section includes ALL of a patient's completed or amended [place] Advance and Rescinded Directives. The entries below indicate that a directive exists for the patient, but an actual copy is not included with this document. The data comes from all [place] facilities. Date Advance Directives Provider Source Mar 15, 2008 ADVANCE DIRECTIVE GERARDO MARSH [place] CNT [facility] Encounter Notes: All associated encounter notes This section contains the clinical notes associated to the Encounter. Date/Time Encounter Note(s) Provider Source Jun 24, 2023 08:28 AM ADDENDUM: LOCAL TITLE: Addendum STANDARD TITLE: ADDENDUM DATE OF NOTE: JUN 24, 2023@08:28:20 ENTRY DATE: JUN 24, 2023@08:28:21 AUTHOR: IVELISSE ISRAEL COSIGNER: URGENCY: STATUS: COMPLETED ATTN PCP KINDLY consider renewing rx for atorvastatin for this . The rx shows no refills left. thank you /josue/ IVELISSE ISRAEL CLINICAL AUTO CLUTCH REBUILDER Signed: 06/24/2023 08:28 Receipt Acknowledged By: 08/20/2023 16:33 /josue/ KARRI FARIA MD PHYSICIAN 06/24/2023 08:44 /es/ Heather Munoz RN Registered Nurse (RN) for JEN DAVILA === --- Original Document --- 06/19/23 CCC: SCHEDULING ADMINISTRATION: Patient Demographics Patient Name: ADAMS SHEEHAN Patient Primary Phone: [phone] Patient Primary Address: [address] [place] [address] Patient : 1935 Patient Age: 87 Caller/Recipient Relation to Patient: Other If Other Describe Relation to Patient: PCC Caller Name: Jimmy Administrative Administrative Note Reason: Medication Renewal Medications Refill/Renewal Request: [facility] is requesting renewal of the following medication mailed to him. He has been inadvertently taking a whole pill instead of the 1/2 of the pill in the directions. [facility] is aware of the SIG now, and will only take 1/2 a pill. Rx #[id number] - ATORVASTATIN CALCIUM 40MG TAB /es/ MAXIME Lonny XAVIERStarla 1 [facility] AMSA Signed: 06/19/2023 14:17 Receipt Acknowledged By: 06/23/2023 11:38 /es/ RUBY MERCHANT LPN LPN 06/20/2023 12:35 /es/ LEN VITALE RN-BC REGISTERED NURSE for JEN DAVILA 06/20/2023 ADDENDUM STATUS: COMPLETED Forwarding request to PACT clinical pharmacist to assist with refill request for atorvastatin based outside sales professional center message with information provided by noted above /josue/ LEN VITALE RN-BC REGISTERED NURSE Signed: 06/20/2023 12:37 Receipt Acknowledged By: 06/24/2023 08:27 /josue/ IVELISSE ISRAEL CLINICAL AUTO CLUTCH REBUILDER IVELISSE ISRAEL [place] CNT[facility] Jun 20, 2023 12:36 PM ADDENDUM: LOCAL TITLE: Addendum STANDARD TITLE: ADDENDUM DATE OF NOTE: JUN 20, 2023@12:36:06 ENTRY DATE: JUN 20, 2023@12:36:07 AUTHOR: MARY MEDINA COSIGNER: URGENCY: STATUS: COMPLETED Forwarding request to PACT clinical pharmacist to assist with refill request for atorvastatin based outside sales professional center message with information provided by noted above /LEN Hunter RN-BC REGISTERED NURSE Signed: 06/20/2023 12:37 Receipt Acknowledged By: 06/24/2023 08:27 /josue/ IVELISSE ISRAEL CLINICAL AUTO CLUTCH REBUILDER === --- Original Document --- 06/19/23 CCC: SCHEDULING ADMINISTRATION: Patient Demographics Patient Name: ADAMS SHEEHAN Patient Primary Phone: [phone] Patient Primary Address: [address] [place] [address] Patient : 1935 Patient Age: 87 Caller/Recipient Relation to Patient: Other If Other Describe Relation to Patient: [facility] Caller Name: Jimmy Administrative Administrative Note Reason: Medication Renewal Medications Refill/Renewal Request: is requesting renewal of the following medication mailed to him. He has been inadvertently taking a whole pill instead of the 1/2 of the pill in the directions. is aware of the SIG now, and will only take 1/2 a pill. Rx #[id number] - ATORVASTATIN CALCIUM 40MG TAB /es/ MAXIME MOREIRA VISN 1 [facility] AMSA Signed: 06/19/2023 14:17 Receipt Acknowledged By: 06/23/2023 11:38 /josue/ RUBY MERCHANT LPN LPN 06/20/2023 12:35 /josue/ LEN VITALE RN-BC REGISTERED NURSE for MARY BRISCOE [facility] Jun 19, 2023 02:17 PM ADMINISTRATIVE NOTE: LOCAL TITLE: CCC: SCHEDULING ADMINISTRATION STANDARD TITLE: ADMINISTRATIVE NOTE DATE OF NOTE: JUN 19, 2023@14:17:31 ENTRY DATE: JUN 19, 2023@14:17:31 AUTHOR: MAXIME MOREIRA COSIGNER: URGENCY: STATUS: COMPLETED CCC: SCHEDULING ADMINISTRATION Has ADDENDA Patient Demographics Patient Name: ADAMS SHEEHAN Patient Primary Phone: [phone] Patient Primary Address: [address] [place] [address] Patient : 1935 Patient Age: 87 Caller/Recipient Relation to Patient: Other If Other Describe Relation to Patient: [facility] Caller Name: [facility] Administrative Administrative Note Reason: Medication Renewal Medications Refill/Renewal Request: [facility] is requesting renewal of the following medication mailed to him. He has been inadvertently taking a whole pill instead of the 1/2 of the pill in the directions. [facility] is aware of the SIG now, and will only take 1/2 a pill. Rx #[id number] - ATORVASTATIN CALCIUM 40MG TAB /es/ MAXIME A SUHAILID VISN 1 [facility] A[facility] Signed: 06/19/2023 14:17 Receipt Acknowledged By: 06/23/2023 11:38 /josue/ RUBY MERCHANT LPN LPN 06/20/2023 12:35 /es/ LEN VITALE RN-BC REGISTERED NURSE for JEN H GIOVANNI 06/20/2023 ADDENDUM STATUS: COMPLETED Forwarding request to PACT clinical pharmacist to assist with refill request for atorvastatin based outside sales professional center message with information provided by [facility] noted above /josue/ LEN VITALE RN-BC REGISTERED NURSE Signed: 06/20/2023 12:37 Receipt Acknowledged By: 06/24/2023 08:27 /josue/ IVELISSE ISRAEL CLINICAL AUTO CLUTCH REBUILDER 06/24/2023 ADDENDUM STATUS: COMPLETED ATTN PCP KINDLY consider renewing rx for atorvastatin for this . The rx shows no refills left. thank you /josue/ IVELISSE ISRAEL CLINICAL AUTO CLUTCH REBUILDER Signed: 06/24/2023 08:28 Receipt Acknowledged By: * AWAITING SIGNATURE * KARRI FARIA * AWAITING SIGNATURE * JEN DAVILA SARA A [place] CNTR[facility]
--- OUTSIDE RECORDS SUMMARY | 2024-06-07 14:13 | XMS_ITS ---
Author Name [facility] [place] Organization [place] Address [address] [place] [id number] Care Team Providers Care Front Counter Clerk Name Role Phone KARRI FARIA Primary Care [...] Patient's Relationship to Policy [employer] ([id number]) PRESCRIPT ION [place] RAMESH TIES Jan 05, 2009 [id number] NEVERSMICHAELA PATIENT [facility] MEDICARE SUPPLEMEN TAL MA IND Jun 29, 2016 MEDICAR E SUPPLEM E [id number] NEVERSMICHAELA PATIENT MEDICARE (WNR) MEDICARE (M) PART A October 28, 1999 PART A [id number] ADAMS SHEEHAN JR PATIENT MEDICARE (WNR) MEDICARE (M) PART B October 28, 1999 PART B [id number] ADAMS SHEEHAN JR PATIENT UMR MEDIGAP PLAN C [place] KEILY CHANDLERI TIES Apr 05, 2007 [id number] MICHAELA SHEEHAN PATIENT Selected Encounter This section includes the information on record at [place] for the Encounter. Date/Time Encounter Type Encounter Description Reason Pro vider Source Sep 24, 2023 09:26 AM Outpatient Encounter ADMIN PAT ACTIVTIES (MASNONCT) IHE Encounter Template Text not used by [place] Plan of Treatment: Future Appointments (+ 6 months) and Future Tests (+/- 45 days) The Plan of Treatment section includes future care activities for the patient from all [place] treatmentfacilities. This section includes future appointments and future orders which are active, pending or scheduled. Future Appointments This section includes appointments that were scheduled to occur 6 months from the date of the Encounter, up to a maximum of 20 appointments. The data comes from all [place] treatment facilities. Appointment Date/Time Appointment Type Appointme nt Facility Name Oct 23, 2023 10:00 AM [facility] MEDICINE [facility] November 25, 2023 01:00 PM [facility] Feb 03, 2024 10:30 AM [facility] MEDICINE [facility] Advance Directives: All historical and current Section Date Range: From patient's date of to the date document was created. This section includes ALL of a patient's completed or amended [place] Advance and Rescinded Directives. The entries below indicate that a directive exists for the patient, but an actual copy is not included with this document. The data comes from all [place] facilities. Date Advance Directives Provider Source Mar 15, 2008 ADVANCE DIRECTIVE GERARDO MARSH [facility] Encounter Notes: All associated encounter notes This section contains the clinical notes associated to the Encounter. Date/Time Encounter Note(s) Provider Source Sep 24, 2023 09:26 AM ADMINISTRATIVE NOTE: LOCAL TITLE: CCC: SCHEDULING ADMINISTRATION STANDARD TITLE: ADMINISTRATIVE NOTE DATE OF NOTE: SEP 24, 2023@09:26:51 ENTRY DATE: SEP 24, 2023@09:26:51 AUTHOR: MARY AUSTIN COSIGNER: URGENCY: STATUS: COMPLETED CCC: SCHEDULING ADMINISTRATION Has ADDENDA Patient Demographics Patient Name: ADAMS SHEEHAN Patient Primary Phone: [phone] Patient Primary Address: [address] [place] [address] Patient : 1935 Patient Age: 87 Caller/Recipient Relation to Patient: Self Administrative Administrative Note Reason: Other Administrative Note Comments: is calling, he would like to see PCP and talk about medications and see if he can get rid of some that is causing him to have Balance loss, lightheadedness, and dizziness at times. [place] decline nurse triage at this time. Please follow up with the @ [phone] /es/ MARY ALCOCER 1 [facility] Signed: 09/24/2023 09:26 Receipt Acknowledged By: 09/24/2023 10:56 /es/ RUBY MERCHANT LPN LPN 09/24/2023 10:29 /es/ LEN NEGRETE,RN-BC REGISTERED NURSE (RN) 09/24/2023 ADDENDUM STATUS: COMPLETED Management Trainee Marketing scheduled appt. with PCP on 10/22 at 10 am. Management Trainee Marketing advised patient if he needs to be seen sooner her could walk in today to [facility] or any THU or Thursday from 0830 am 1530. [place] [facility] okay. /es/ LEN NEGRETE,RN-BC REGISTERED NURSE (RN) Signed: 09/24/2023 10:37 MARY [place]USTIN [facility]
--- OUTSIDE RECORDS SUMMARY | 2024-06-07 14:13 | XMS_ITS | Encounter Summary ---
Author Name [facility] [place] [facility] [place] Address [address] [place] [id number] Care Team Providers Care Patient Resource Specialist Name Role Phone KARRI FARIA Primary Care Provider Unava ilable Insurance Providers: All historical and current Section [...] Patient's Relationship to Policy [employer] ([id number]) PRESCRIPT ION [facility] TIES Jan 05, 2009 [id number] [phone] NEVERSMICHAELA SEPH PATIENT [facility] MEDICARE SUPPLEMEN TAL MA IND Jun 29, 2016 MEDICAR E SUPPLEM E [id number] NEVERSMICHAELA VINOD PATIENT MEDICARE (WNR) MEDICARE (M) PART A October 28, 1999 PART A [id number] SISSY LAYADAMS PATIENT MEDICARE (WNR) MEDICARE (M) PART B October 28, 1999 PART B [id number] SISSY LAYADAMS PATIENT UMR MEDIGAP PLAN C BIG BAR RAMESHI TIES Apr 05, 2007 [id number] NEVERS,MICHAELA SEPH PATIENT Selected Encounter This section includes the information on record at [place] for the Encounter. Date/Time Encounter Type Encounter Description Reason Provider Source Jul 15, 2023 01:26 PM QNHP OL DIG ASSMT&MGMT 5-10 CLINICAL PHARMACY ICD-10-CM Z04.89 Encounter for examination and observation for oth reasons BENITA ROJAS Padmini Encounter Template Text not used by [place] Assessments - Encounter Diagnoses This section includes the primary and secondary diagnoses documented for the Encounter. Date/Time Primary/Secondary Diagnosis Diagnosis Name Provider Source Jul 15, 2023 01:28 PM PRIMARY Encounter for examination and observation for oth reasons BENITA ROJAS [facility] Plan of Treatment: Future Appointments (+ 6 months) and Future Tests (+/- 45 days) The Plan of Treatment section includes future care activities for the patient from [facility] [place] [facility] This section includes future appointments and future orders which are active, pending or scheduled. Future Appointments This section includes appointments that were scheduled to occur 6 months from the date of the Encounter, up to a maximum of 20 appointments. The data comes from [facility]. Appointment Date/Time Appointment Type Appointme nt Facility Name Aug 25, 2023 01:00 PM AMBULATORY - MEDICINE [facility] Oct 23, 2023 10:00 AM AMBULATORY MEDICINE [facility] November 25, 2023 01:00 PM AMBULATORY MEDICINE [facility] Active, Pending, and Scheduled Orders This section includes a listing of several types of active, pending, and scheduled orders, including clinic medications orders, diagnostic test orders, procedure orders and consult orders; where the start date of the order is 45 days before the date of the Encounter or 45 days after the date of theEncounter. The data comes from all [facility]. Test Date/Time Test Type Test Details Facility Name Jun 12, 2023 12:00 AM Laboratory - Chemistry Order CREATININE (eGFR 2020) BLOOD (SST-SERUM) [facility] Jun 12, 2023 12:00 AM Laboratory - Chemistry Order CBC BLOOD (LAV-BLOOD) [facility] Lab Results: +/- 30 days of the encounter This section includes the Chemistry and Hematology Lab Results on record with [place] for the patient. Radiology Reports and Pathology Reports are provided separately, in subsequent sections. Lab Results This section contains the Chemistry/Hematology Results that were resulted 30 days before or 30 daysafter the date of the Encounter. Date/Time Source Result Type Result - Unit Interpretation Reference Range Comment Jul 09, 2023 01:00 PM [facility] MICROALBUMIN CREATININE RATIO PANEL Specimen Type: URINE No comment entered. Ordering Provider: CARLOS FARIA Report Released Date/Time: May 14, 2023 02:12 PM Reporting Lab: [address] [address] Performing Lab: [address] [address] MICROALBUMIN/C REATININE RATIO 15.7 mg/g 0-29.9 MICROALBUMIN,Q UANTITATIVE 0.8 mg/dL RR UNAVAIL CREATININE URINE 51.04 mg/dL Jul 08, 2023 09:45 AM [facility] HEMOGLOBIN A1C PANEL Specimen Type: BLOOD Comment: [...] May 14, 2023 02:12 PM Reporting [facility] [address] Performing [facility]: [facility] [address] HEMOGLOBIN A1C 5.6 4.0-5.6 Jul 08, 2023 09:45 AM [facility] AND DIFF (AUTO) Specimen Type: BLOOD No comment entered. Ordering Provider: CARLOS FARIA Report Released Date/Time: May 14, 2023 02:12 PM Reporting Lab: [address] [address] Performing Lab: [facility] [address] [facility] [address] WBC 4.67 10*3/uL 4.50-11.00 RBC 3.90 10*6/uL L 4.23-5.66 HGB 12.1 g/dL L 12.8-17 HCT 38.0 L 39.2-50.4 MCV 97.4 fL 82-99 MCHC 31.8 g/dL 30.8-35.1 PLT 223 10*3/uL 140-360 RDW-CV 14.5 12.0-16.0 [place], Abs 0.47 10*3/uL 0.30-1.10 MCH 31.0 pg 26.2-32.6 Neut % 74.8 43.7-75.8 Lymph % 12.6 L 14.0-42.3 [place] % 10.1 5.1-13.7 Eos % 1.7 0.4-6.8 Baso % 0.6 0.1-2.0 Neut, Abs 3.49 10*3/uL 2.20-7.60 Lymph, Abs 0.59 10*3/uL L 1.00-3.20 Eos, Abs 0.08 10*3/uL 0.03-0.44 Baso, Abs 0.03 10*3/uL 0.01-0.13 Immature Gran % 0.2 0.0-0.7 Immature Gran, Abs 0.01 10*3/uL 0.00-0.06 Jul 08, 2023 09:45 AM [facility] BASIC METABOLIC PANEL (fasting) Specimen Type: SERUM No comment entered. Ordering Provider: CARLOS FARIA Report Released Date/Time: May 14, 2023 02:12 PM Reporting Lab: [facility] [address] [facility] [address] Performing Lab: [address] [address] UREA NITROGEN 52 mg/dL H 7-25 GLUCOSE 94 mg/dL 65-100 SODIUM 137 mmol/L 135-145 POTASSIUM 4.3 mmol/L 3.5-5.0 CHLORIDE 103 mmol/L 100-110 CO2 24 meq/L 20-30 CREATININE, Serum 1.13 mg/dL 0.50-1.40 eGFR(CKD-EPI 2020) 62 mL/min >60 Jul 08, 2023 09:45 AM [facility] LIPID PANEL FASTING Specimen Type: SERUM No comment entered. Ordering Provider: CARLOS FARIA Report Released Date/Time: May 14, 2023 02:12 PM Reporting Lab: [facility] [address] [facility] [address] Performing Lab: [facility] [address] [facility] [address] CHOLESTEROL 126 mg/dL TRIGLYCERIDE 75 mg/dL 0-150 LDL calculated 65 mg/dL 0-129 CHOL/HDL 2.7 HDL CHOLESTEROL 46 mg/dL 40-60 Jul 08, 2023 09:45 AM [facility] LIVER FUNCTION Specimen Type: SERUM No comment entered. Ordering Provider: CARLOS FARIA Report Released Date/Time: May 14, 2023 02:12 PM Reporting Lab: [facility] [address] [facility] [address] Performing Lab: [facility] [address] [facility] [address] PROTEIN,TOTAL 7.4 g/dL 6.0-8.3 ALBUMIN 4.1 g/dL 3.5-5.0 ALKALINE PHOSPHATASE 65 U/L 40-150 AST 20 U/L 5-34 ALT 8 U/L BILIRUBIN, TOTAL 1.0 mg/dL 0.2-1.2 Jul 08, 2023 09:45 AM [facility] TSH Specimen Type: SERUM No comment entered. Ordering Provider: CARLOS FARIA Report Released Date/Time: May 14, 2023 02:12 PM Reporting Lab: [facility] [address] [facility] [address] Performing Lab: [address] [address] TSH 4.73 u[IU]/mL 0.35-5.00 Social History: Smoking Status (Most current) and Tobacco Use (All prior to encounter date) This section includes the most current, and the historical, smoking and tobacco- related health factors from the [place] facility where the Encounter took place. Current Smoking Status This section includes the most current smoking, or tobacco-related health factor, from the [place] facility where the Encounter took place. Date/Time Current Smoking Status Comment Marilyn ity May 06, 2023 01:41 PM VA-TOBACCO FORMER USER [facility] Tobacco Use History This section includes a history of the smoking, or tobacco-related health factors, that were collected on or before the date of the Encounter. The data comes from the [place] facility where the Encounter took place. Date/Time Smoking Status/Tobacco Use Comment F acility May 06, 2023 01:41 PM VA-TOBACCO QUIT 15 YRS OR MORE [facility] May 28, 2022 01:30 PM VA-TOBACCO FORMER USER [facility] May 28, 2022 01:30 PM VA-TOBACCO QUIT 15 YRS OR MORE [facility] Jul 11, 2020 11:00 AM VA-TOBACCO FORMER USER [facility] Jul 11, 2020 11:00 AM VA-TOBACCO QUIT 15 YRS OR MORE [facility] Mar 29, 2009 02:00 PM QUIT TOBACCO USE 1 -7 YEARS AGO stopped tobacco 5 years ago [facility] Mar 09, 2008 09:00 AM QUIT TOBACCO USE 1 -7 YEARS AGO [facility] Aug 19, 2007 01:00 PM QUIT TOBACCO USE 1 -7 YEARS AGO [facility] Aug 13, 2006 01:30 PM QUIT TOBACCO USE 1 -7 YEARS AGO stopped tobacco 4 years ago [facility] Aug 08, 2005 08:30 AM QUIT TOBACCO USE 1 -7 YEARS AGO [facility] Mar 06, 2005 01:30 PM QUIT TOBACCO USE IN PAST Y EAR Pt quit 2002 [facility] Dec 24, 2004 03:00 PM QUIT TOBACCO USE IN PAST YEAR [facility] Jul 30, 2004 02:00 PM HISTORY OF SMOKING Quit 3 years ago [facility] Advance Directives: All historical and current Section Date Range: From patient's date of to the date document was created. This section includes ALL of a patient's completed or amended [place] Advance and Rescinded Directives. The entries below indicate that a directive exists for the patient, but an actual copy is not included with this document. The data comes from all [facility]. Date Advance Directives Provider Source Mar 15, 2008 ADVANCE DIRECTIVE GERARDO MARSH [place] ZEINA CABRERA [facility] Encounter Notes: All associated encounter notes This section contains the clinical notes associated to the Encounter. Date/Time Encounter Note(s) Provider Source Jul 15, 2023 01:26 PM PHARMACY MEDICATIO N MGT NOTE: LOCAL TITLE: PHARMACY ANTICOAGULATION NOTE STANDARD TITLE: PHARMACY MEDICATION MGT NOTE DATE OF NOTE: JUL 15, 2023@13:26 ENTRY DATE: JUL 15, 2023@13:26:53 AUTHOR: BENITA ROJAS EXP COSIGNER: URGENCY: STATUS: COMPLETED ANTICOAGULATION DOAC MONITORING NOTE SUBJECTIVE: Patient identified through the DOAC population Management Tool based on the following criteria: [ ] Dosing Issue [ ] Critical Drug Interaction [ ] Cancer Treatment [ ] Active NSAID [ ] Labs Overdue [ ] Prosthetic Valve Replacement [ ] Notable Lab Value [ ] Overdue for Refill [ X ] Other: Pt flagged on DOAC dashboard for lacking indication. Comments: Pt with dx atril fibrillation on CPRS list. OBJECTIVE: Indication for anticoagulation: [ X ] Atrial fibrilation [ ] Atrial flutter [ ] VTE (DVT or PE) [ ] Post-op DVT prophylaxis [ ] Other: Most recent lab values include the following: HGB: HGB Collection DT Specimen Test Name Result Units Ref Range 07/08/2023 09:45 BLOOD HGB 12.1 L g/dL 12.8 - 17 PLT: WBC Collection DT Specimen Test Name Result Units Ref Range 07/08/2023 09:45 BLOOD WBC 4.67 K/cmm 4.50 - 11.00 Liver Function Tests Collection DT Spec AST ALT ALK CASTILLO ALBUMIN T BILI T. PROT 07/08/2023 09:45 SERUM 20 8 65 4.1 1.0 7.4 HEIGHT: 73 in [185.4 cm] (05/25/2023 13:48) WEIGHT: 154.1 lb [69.90 kg] (05/25/2023 13:45) BMI: BMI: 20.4 CREATININE-EGFR 07/08/23 09:45 1.13 CRCL IBW: CrCl(est): 44.7 mL/min (Creat:1.13 07/08/23) CRCL ACT: 44.77 mL/min CRCL ADJ: 44.7 mL/min (07/08/23) ASSESSMENT: Action required? [ ] Yes [ X ] No Comments: Pt with hx atrial fibrillation. Rivaroxaban dosing apropriate for indication. PLAN: [ X ] No action required, dismiss flag [ ] Will intervene: [ ] Patient education via phone/letter [ ] Schedule phone/kxgi-uj-ojdf follow up [ ] Lab ordered [ ] Discontinue interacting medication [ ] Discontinue DOAC [ ] Change to alternative DOAC [ ] Change DOAC dose [ ] Notify PCP [ ] Consult cardiology/hematology [ ] Other: Time spent: 1 minute /josue/ Benita Rojas PharmD Clinical Pharmacy Practitioner Signed: 07/15/2023 13:28 BENITA ROJAS [facility]
--- OUTSIDE RECORDS SUMMARY | 2024-06-07 14:13 | XMS_ITS ---
Author Name [facility] [place] Organization [facility] [place] [facility] [place] Address [address] [place] [address] Care Team Providers Care Pyrotechnic Assembler Name Role Phone KARRI FARIA Primary Care [...] Patient's Relationship to Policy [employer] ([id number]) PRESCRIPT ION [facility] TIES Jan 05, 2009 [id number] NEVERSMICHAELA PATIENT [facility] MEDICARE [facility] IND Jun 29, 2016 MEDICAR E SUPPLEM E [id number] NEVERS,MICHAELA BROCK PATIENT MEDICARE (WN) MEDICARE (M) PART A October 28, 1999 PART A [id number] ADAMS SHEEHAN JR PATIENT MEDICARE (WNR) MEDICARE (M) PART B October 28, 1999 PART B [id number] ADAMS SHEEHAN JR PATIENT UMR MEDIGAP PLAN C [place] RAMESHI TIES Apr 05, 2007 [id number] NEVERSMICHAELA PATIENT Selected Encounter This section includes the information on record at [place] for the Encounter. Date/Time Encounter Type Encounter Description Reason Provider Source Jul 09, 2023 01:34 PM QNHP OL DIG ASSMT&MGMT 5-10 CLINICAL PHARMACY ICD-10-CM Z04.89 Encounter for examination and observation for oth reasons LADARIUS REYNOSO IHPadmini Encounter Template Text not used by [place] Assessments - Encounter Diagnoses This section includes the primary and secondary diagnoses documented for the Encounter. Date/Time Primary/Secondary Diagnosis Diagnosis Name Provider Source Jul 09, 2023 02:53 PM PRIMARY Encounter for examination and observation for oth reasons LADARIUS REYNOSO [facility] Plan of Treatment: Future Appointments (+ 6 months) and Future Tests (+/- 45 days) The Plan of Treatment section includes future care activities for the patient [facility] [place] [facility] This section includes future appointments and future orders which are active, pending or scheduled. Future Appointments This section includes appointments that were scheduled to occur 6 months from the date of the Encounter, up to a maximum of 20 appointments. The data comes from all [facility] [address] Appointment Date/Time Appointment Type Appointme nt Facility Name Aug 25, 2023 01:00 PM AMBULATORY - MEDICINE [facility] Oct 23, 2023 10:00 AM AMBULATORY - MEDICINE [facility] November 25, 2023 01:00 PM AMBULATORY MEDICINE [facility] Active, Pending, and Scheduled Orders This section includes a listing of several types of active, pending, and scheduled orders, including clinic medications orders, diagnostic test orders, procedure orders and consult orders; where the start date of the order is 45 days before the date of the Encounter or 45 days after the date of theEncounter. The data comes from all [facility] [address]. Test Date/Time Test Type Test Details Facility Name Jun 12, 2023 12:00 AM Laboratory - Chemistry Order CREATININE (eGFR 2020) BLOOD (SST-SERUM) [facility] Jun 12, 2023 12:00 AM Laboratory - Chemistry Order CBC BLOOD (LAV-BLOOD) [facility] Lab Results: +/- 30 days of the encounter This section includes the Chemistry and Hematology Lab Results on record with [place] for the patient. Radiology Reports and Pathology Reports are provided separately, in subsequent sections. Lab Results This section contains the Chemistry/Hematology Results that were resulted 30 days before or 30 daysafter the date of the Encounter. Date/Time Source Result Type Result - Unit Interpretation Reference Range Comment Jul 09, 2023 01:00 PM [facility] MICROALBUMIN CREATININE RATIO PANEL Specimen Type: URINE No comment entered. Ordering Provider: CARLOS FARIA Report Released Date/Time: May 14, 2023 02:12 PM Reporting Lab: [facility] [address] [facility] [address] Performing Lab: [address] [address] MICROALBUMIN/C REATININE RATIO 15.7 mg/g 0-29.9 MICROALBUMIN,Q UANTITATIVE 0.8 mg/dL RR UNAVAIL CREATININE URINE 51.04 mg/dL Jul 08, 2023 09:45 AM [facility] HEMOGLOBIN A1C PANEL Specimen Type: BLOOD [...] May 14, 2023 02:12 PM Reporting Lab: [facility] [address] [facility] [address] Performing Lab: [address] [address] HEMOGLOBIN A1C 5.6 4.0-5.6 Jul 08, 2023 09:45 AM [facility] CBC AND DIFF (AUTO) Specimen Type: BLOOD No comment entered. Ordering Provider: CARLOS FARIA Report Released Date/Time: May 14, 2023 02:12 PM Reporting Lab: [facility] [address] [facility] [address] Performing Lab: [facility] [address] [facility] [address] WBC 4.67 10*3/uL 4.50-11.00 RBC 3.90 10*6/uL L 4.23-5.66 HGB 12.1 g/dL L 12.8-17 HCT 38.0 L 39.2-50.4 MCV 97.4 fL 82-99 MCHC 31.8 g/dL 30.8-35.1 PLT 223 10*3/uL 140-360 RDW-CV 14.5 12.0-16.0 [place], Abs 0.47 10*3/uL 0.30-1.10 MCH 31.0 pg 26.2-32.6 Neut % 74.8 43.7-75.8 Lymph % 12.6 L 14.0-42.3 [place] % 10.1 5.1-13.7 Eos % 1.7 0.4-6.8 Baso % 0.6 0.1-2.0 Neut, Abs 3.49 10*3/uL 2.20-7.60 Lymph, Abs 0.59 10*3/uL L 1.00-3.20 Eos, Abs 0.08 10*3/uL 0.03-0.44 Baso, Abs 0.03 10*3/uL 0.01-0.13 Immature Gran % 0.2 0.0-0.7 Immature Gran, Abs 0.01 10*3/uL 0.00-0.06 Jul 08, 2023 09:45 AM [facility] BASIC METABOLIC PANEL (fasting) Specimen Type: SERUM No comment entered. Ordering Provider: CARLOS FARIA Report Released Date/Time: May 14, 2023 02:12 PM Reporting Lab: [facility] [address] [facility] [address] Performing Lab: [address] [address] UREA NITROGEN 52 mg/dL H 7-25 GLUCOSE 94 mg/dL 65-100 SODIUM 137 mmol/L 135-145 POTASSIUM 4.3 mmol/L 3.5-5.0 CHLORIDE 103 mmol/L 100-110 CO2 24 meq/L 20-30 CREATININE, Serum 1.13 mg/dL 0.50-1.40 eGFR(CKD-EPI 2020) 62 mL/min >60 Jul 08, 2023 09:45 AM [facility] LIPID PANEL FASTING Specimen Type: SERUM No comment entered. Ordering Provider: CARLOS FARIA Report Released Date/Time: May 14, 2023 02:12 PM Reporting Lab: [facility] [address] [facility] [address] Performing Lab: [address] [address] CHOLESTEROL 126 mg/dL TRIGLYCERIDE 75 mg/dL 0-150 LDL calculated 65 mg/dL 0-129 CHOL/HDL 2.7 HDL CHOLESTEROL 46 mg/dL 40-60 Jul 08, 2023 09:45 AM [facility] LIVER FUNCTION Specimen Type: SERUM No comment entered. Ordering Provider: CARLOS FARIA Report Released Date/Time: May 14, 2023 02:12 PM Reporting Lab: [address] [address] Performing Lab: [address] [address] PROTEIN,TOTAL 7.4 g/dL 6.0-8.3 ALBUMIN 4.1 g/dL 3.5-5.0 ALKALINE PHOSPHATASE 65 U/L 40-150 AST 20 U/L 5-34 ALT 8 U/L BILIRUBIN, TOTAL 1.0 mg/dL 0.2-1.2 Jul 08, 2023 09:45 AM [facility] TSH Specimen Type: SERUM No comment entered. Ordering Provider: CARLOS FARIA Report Released Date/Time: May 14, 2023 02:12 PM Reporting Lab: [facility] [address] [facility] [address] Performing Lab: [address] [address] TSH 4.73 u[IU]/mL 0.35-5.00 Advance Directives: All historical and current Section Date Range: From patient's date of to the date document was created. This section includes ALL of a patient's completed or amended [place] Advance and Rescinded Directives. The entries below indicate that a directive exists for the patient, but an actual copy is not included with this document. The data comes from all [place] facilities. Date Advance Directives Provider Source Mar 15, 2008 ADVANCE DIRECTIVE GERARDO MARSH [facility]EL[facility] Encounter Notes: All associated encounter notes This section contains the clinical notes associated to the Encounter. Date/Time Encounter Note(s) Provider Source Jul 09, 2023 01:34 PM PHARMACY MEDICATIO N MGT NOTE: LOCAL TITLE: PHARMACY ANTICOAGULATION NOTE STANDARD TITLE: PHARMACY MEDICATION MGT NOTE DATE OF NOTE: JUL 09, 2023@13:34 ENTRY DATE: JUL 09, 2023@13:34:57 AUTHOR: LADARIUS REYNOSO EXP COSIGNER: URGENCY: STATUS: COMPLETED PHARMACY ANTICOAGULATION NOTE Has ADDENDA ANTICOAGULATION DOAC MONITORING NOTE SUBJECTIVE: Patient identified through the DOAC population Management Tool based on the following criteria: [ X ] Dosing Issue [ ] Critical Drug Interaction [ ] Cancer Treatment [ ] Active NSAID [ ] Labs Overdue [ ] Prosthetic Valve Replacement [ ] Notable Lab Value [ ] Overdue for Refill [ ] Other: Comments: Pt flagged by DOAC dashboard for dosing issue with rivaroxaban 20 mg daily in setting of reduced renal function (CrCl < 50 ml/min). OBJECTIVE: Indication for anticoagulation: [ X ] Atrial fibrilation [ X ] Atrial flutter [ ] VTE (DVT [...] [69.90 kg] (05/25/2023 13:45) BMI: BMI: 20.4 SERUM Jul 08 May 21 Mar 06 Aug 08 Reference 2023 2021 2021 2021 09:45 10:08 14:26 13:16 Units Ranges -- GLUCOSE 94 mg/dL 65 - 100 BUN 52 H mg/dL 7 - 25 CREATININE 1.13 0.82 0.86 mg/dL .5 - 1.4 CRCL IBW: CrCl(est): 44.7 mL/min (Creat:1.13 07/08/23) CRCL ACT: 44.77 mL/min CRCL ADJ: 44.7 mL/min (07/08/23) ASSESSMENT: - Based on most recent CrCl from 07/08/23, recommend considering a rivaroxaban dosage reduction to 15 mg daily. Action required? [ X ] Yes [ ] No Comments: Alerting the PCP about pt's decline in renal function, suggesting that a reduction in rivaroxaban dose to 15mg daily may be warranted. If continuing current therapy, PCP may consider closer monitoring of renal function to ascertain if the decreased renal function is the patient's new baseline If any change in therapy is made, please notify pt of this as pt is no longer actively followed by [facility]. PLAN: [ ] No action required, dismiss flag [ X ] Will intervene: [ ] Patient education via phone/letter [ ] Schedule phone/fwsl-ze-ldla follow up [ ] Lab ordered [ ] Discontinue interacting medication [ ] Discontinue DOAC [ ] Change to alternative DOAC [ ] Change DOAC dose [ X ] Notify PCP [ ] Consult cardiology/hematology [ ] Other: Time spent: 5 minutes /richard REYNOSO PHARMD, [facility] CLINICAL PHARMACIST PRACTITIONER Signed: 07/09/2023 14:54 Receipt Acknowledged By: 07/09/2023 14:57 /richard Reinoso PharmD,[facility] Clinical Pharmacy Practitioner 07/16/2023 08:53 /richard FARIA MD PHYSICIAN 07/09/2023 ADDENDUM STATUS: COMPLETED Case reviewed with CPP who entered this note. Agree with assessment and plan. /richard Reinoso PharmD,[facility] Clinical Pharmacy Practitioner Signed: 07/09/2023 14:58 07/16/2023 ADDENDUM STATUS: COMPLETED Chart reviewed; holiday CHF with medicaion changes. Monitor for now. /richard FARIA MD PHYSICIAN Signed: 07/16/2023 08:54 LADARIUS REYNOSO CNTRL [facility]N [facility]
--- OUTSIDE RECORDS SUMMARY | 2024-06-07 14:13 | XMS_ITS | Encounter Summary ---
Author Name [facility] Organization [facility] Address [address] [place] [id number] Care Team Providers Care Oenologist Name Role Phone KARRI FARIA Primary Care [...] Patient's Relationship to Policy [employer] ([id number]) PRESCRIPT ION [place] [facility] TIES Jan 05, 2009 [id number] NEVERSMICHAELA SEPH PATIENT [facility] MEDICARE SUPPLEMEN TAL [place] IND Jun 29, 2016 MEDICAR E SUPPLEM E [id number] NEVERSMICHAELA PATIENT MEDICARE (WNR) MEDICARE (M) PART A October 28, 1999 PART A [id number] ADAMS SHEEHAN JR PATIENT MEDICARE (WN) MEDICARE (M) PART B October 28, 1999 PART B [id number] ADAMS SHEEHAN JR PATIENT UMR MEDIGAP PLAN C [place] [facility] TIES Apr 05, 2007 [id number] NEVERSMICHAELA SEPH PATIENT Selected Encounter This section includes the information on record at [place] for the Encounter. Date/Time Encounter Type Encounter Description Reason Pro vider Source IHE Encounter Template Text not used by [place] Advance Directives: All historical and current Section Date Range: From patient's date of to the date document was created. This section includes ALL of a patient's completed or amended [place] Advance and Rescinded Directives. The entries below indicate that a directive exists for the patient, but an actual copy is not included with this document. The data comes from all [place] facilities. Date Advance Directives Provider Source Mar 15, 2008 ADVANCE DIRECTIVE GERARDO MARSH [place] [facility]
--- OUTSIDE RECORDS SUMMARY | 2024-06-07 14:13 | XMS_ITS ---
Author Name [facility] [place] Address [address] [place] [id number] Care Team Providers Care Wallpaper Hanger Helper Name Role Phone KARRI FARIA Primary Care [...] Patient's Relationship to Policy [employer] ([id number]) PRESCRIPT ION [place] RAMESH TIES Jan 05, 2009 [id number] NEVERSMICHAELA PATIENT [facility] MEDICARE SUPPLEMEN TAL [place] IND Jun 29, 2016 MEDICAR E SUPPLEM E [id number] NEVERSMICHAELA PATIENT MEDICARE (WNR) MEDICARE (M) PART A October 28, 1999 PART A [id number] ADAMS SHEEHAN JR PATIENT MEDICARE (WNR) MEDICARE (M) PART B October 28, 1999 PART B [id number] ADAMS SHEEHAN JR PATIENT UMR MEDIGAP PLAN C [place] KEILY CHANDLERI TIES Apr 05, 2007 [id number] MICHAELA SHEEHAN PATIENT Selected Encounter This section includes the information on record at NH for the Encounter. Date/Time Encounter Type Encounter Description Reason Pro vider Source Aug 26, 2023 01:18 PM Outpatient Encounter ADMIN PAT ACTIVTIES (MASNONCT) IHE Encounter Template Text not used by [place] Plan of Treatment: Future Appointments (+ 6 months) and Future Tests (+/- 45 days) The Plan of Treatment section includes future care activities for the patient from all [place] treatmentfacilities. This section includes future appointments and future orders which are active, pending or scheduled. Future Appointments This section includes appointments that were scheduled to occur 6 months from the date of the Encounter, up to a maximum of 20 appointments. The data comes from all [place] treatment facilities. Appointment Date/Time Appointment Type Appointme nt Facility Name Oct 23, 2023 10:00 AM AMBULATORY MEDICINE [facility] November 25, 2023 01:00 PM [facility] Feb 03, 2024 10:[address] [facility] [place] [facility] Advance Directives: All historical and current Section Date Range: From patient's date of to the date document was created. This section includes ALL of a patient's completed or amended [place] Advance and Rescinded Directives. The entries below indicate that a directive exists for the patient, but an actual copy is not included with this document. The data comes from all [place] facilities. Date Advance Directives Provider Source Mar 15, 2008 ADVANCE DIRECTIVE GERARDO MARSH [facility] Encounter Notes: All associated encounter notes This section contains the clinical notes associated to the Encounter. Date/Time Encounter Note(s) Provider Source Aug 26, 2023 03:25 PM ADDENDUM: LOCAL TITLE: Addendum STANDARD TITLE: ADDENDUM DATE OF NOTE: AUG 26, 2023@15:25:06 ENTRY DATE: AUG 26, 2023@15:25:07 AUTHOR: JEN DAVILA EXP COSIGNER: URGENCY: STATUS: COMPLETED Defer to PACT PLY CUTTER to print out medication list and mail it out to . /josue/ LEN NEGRETE,RN-BC REGISTERED NURSE (RN) Signed: 08/26/2023 15:26 Receipt Acknowledged By: 08/26/2023 16:17 /josue/ RUBY MERCHANT LPN LPN === --- Original Document --- 08/26/23 CCC: SCHEDULING ADMINISTRATION: Patient Demographics Patient Name: ADAMS SHEEHAN Patient Primary Phone: [phone] Patient Primary Address: [address] [place] [address] Patient : 1935 Patient Age: 87 Caller/Recipient Relation to Patient: Self Administrative Administrative Note Comments: [place] calling stating yesterday he saw pact provider and he had a printed off sheet with meds that were highlighted for what he needs to take and doesn't. Vet states he lost this and is wondering if pact found this and if not if another could be created and mailed to him. Vet phone is . /josue/ SID ALCOCER 1 [facility] AMSA Signed: 08/26/2023 13:18 Receipt Acknowledged By: 08/26/2023 16:15 /josue/ RUBY MERCHANT LPN LPN 08/26/2023 15:25 /josue/ LEN NEGRETE,RN-BC REGISTERED NURSE (RN) 08/26/2023 ADDENDUM STATUS: UNSIGNED You may not VIEW this UNSIGNED Addendum. JEN DAVILA [facility] [place] [facility] Aug 26, 2023 01:18 PM ADMINISTRATIVE NOT E: LOCAL TITLE: CCC: SCHEDULING ADMINISTRATION STANDARD TITLE: ADMINISTRATIVE NOTE DATE OF NOTE: AUG 26, 2023@13:18:43 ENTRY DATE: AUG 26, 2023@13:18:43 AUTHOR: SID MILLS EXP COSIGNER: URGENCY: STATUS: COMPLETED CCC: SCHEDULING ADMINISTRATION Has ADDENDA Patient Demographics Patient Name: ADAMS SHEEHAN Patient Primary Phone: [phone] Patient Primary Address: [address] [place] [address] Patient : 1935 Patient Age: 87 Caller/Recipient Relation to Patient: Self Administrative Administrative Note Comments: calling stating yesterday he saw pact provider and he had a printed off sheet with meds that were highlighted for what he needs to take and doesn't. Vet states he lost this and is wondering if pact found this and if not if another could be created and mailed to him. Vet phone is . /josue/ SID ALCOCER 1 [facility] AMSA Signed: 08/26/2023 13:18 Receipt Acknowledged By: 08/26/2023 16:15 /richard MERCHANT LPN LPN 08/26/2023 15:25 /josue/ LEN NEGRETE,RN-BC REGISTERED NURSE (RN) 08/26/2023 ADDENDUM STATUS: COMPLETED Defer to PACT PLY CUTTER to print out medication list and mail it out to . /josue/ LEN NEGRETE,RN-BC REGISTERED NURSE (RN) Signed: 08/26/2023 15:26 Receipt Acknowledged By: 08/26/2023 16:17 /richard MERCHANT LPN LPN 08/26/2023 ADDENDUM STATUS: COMPLETED MED LIST PRINTED AND MAILED TO . /richard MERCHANT LPN LPN Signed: 08/26/2023 16:17 SID MILLS [facility]
--- OUTSIDE RECORDS SUMMARY | 2024-06-07 14:13 | XMS_ITS | Encounter Summary ---
Author Name [place] Address [address] [place] [address] Care Team Providers Care Social Work Program Coordinator Name Role Phone KARRI FARIA Primary Care [...] Patient's Relationship to Policy [employer] ([id number]) PRESCRIPT ION [facility] TIES Jan 05, 2009 [id number] NEVERS,MICHAELA SEPH PATIENT [facility] MEDICARE SUPPLEMEN TAL [place] IND Jun 29, 2016 MEDICAR E SUPPLEM E [id number] NEVERSMICHAELA VINOD PATIENT MEDICARE (WNR) MEDICARE (M) PART A October 28, 1999 PART A [id number] ADAMS SHEEHAN JR PATIENT MEDICARE (WN) MEDICARE (M) PART B October 28, 1999 PART B [id number] [phone] ADAMS SHEEHAN JR PATIENT UMR MEDIGAP PLAN C [facility] TIES Apr 05, 2007 [id number] NEVERS,MICHAELA SEPH PATIENT Selected Encounter This section includes the information on record at [place] for the Encounter. Date/Time Encounter Type Encounter Description Reason Provider Source Aug 25, 2023 01:00 PM OFFICE O/P EST MOD 30 MIN PRIMARY CARE/MEDICINE ICD-10-CM R63.4 Abnormal weight loss CARLOS FARIA Padmini Encounter Template Text not used by [place] Assessments - Encounter Diagnoses This section includes the primary and secondary diagnoses documented for the Encounter. Date/Time Primary/Secondary Diagnosis Diagnosis Name Provider Source Sep 03, 2023 04:12 PM PRIMARY Abnormal weight loss BIENVENIDO,ARTEM DUDLEY [facility] Sep 03, 2023 04:12 PM SECONDARY Chronic obstructive pulmonary disease, unspecified BIENVENIDO,ARTEM DUDLEY [facility] Sep 03, 2023 04:12 PM SECONDARY Heart failure, unspecified BIENVENIDO,ARTEM DUDLEY [facility] Plan of Treatment: Future Appointments (+ 6 months) and Future Tests (+/- 45 days) The Plan of Treatment section includes future care activities for the [facility] [place] [facility] This section includes future appointments and future orders which are active, pending or scheduled. Future Appointments This section includes appointments that were scheduled to occur 6 months from the date of the Encounter, up to a maximum of 20 appointments. The data comes from all [place] treatment facilities. Appointment Date/Time Appointment Type Appointme nt Facility Name Oct 23, 2023 10:00 AM AMBULATORY - MEDICINE [facility] November 25, 2023 01:00 PM AMBULATORY MEDICINE [facility] Feb 03, 2024 10:30 AM AMBULATORY - MEDICINE [facility] Social History: Smoking Status (Most current) and Tobacco Use (All prior to encounter date) This section includes the most current, and the historical, smoking and tobacco- related health factors from the [place] facility where the Encounter took place. Current Smoking Status This section includes the most current smoking, or tobacco-related health factor, from the [place] facility where the Encounter took place. Date/Time Current Smoking Status Allie figueroa May 06, 2023 01:41 PM VA-TOBACCO FORMER USER [facility] Tobacco Use History This section includes a history of the smoking, or tobacco-related health factors, that were collected on or before the date of the Encounter. The data comes from the [place] facility where the Encounter took place. Date/Time Smoking Status/Tobacco Use Comment F acility May 06, 2023 01:41 PM VA-TOBACCO QUIT 15 YRS OR MORE [facility] May 28, 2022 01:30 PM VA-TOBACCO FORMER USER [facility] May 28, 2022 01:30 PM VA-TOBACCO QUIT 15 YRS OR MORE [facility] Jul 11, 2020 11:00 AM VA-TOBACCO FORMER USER [facility] Jul 11, 2020 11:00 AM VA-TOBACCO QUIT 15 YRS OR MORE [facility] Mar 29, 2009 02:00 PM QUIT TOBACCO USE 1 -7 YEARS AGO stopped tobacco 5 years ago [facility] Mar 09, 2008 09:00 AM QUIT TOBACCO USE 1 -7 YEARS AGO [facility] Aug 19, 2007 01:00 PM QUIT TOBACCO USE 1 -7 YEARS AGO [facility] Aug 13, 2006 01:30 PM QUIT TOBACCO USE 1 -7 YEARS AGO stopped tobacco 4 years ago [facility] Aug 08, 2005 08:30 AM QUIT TOBACCO USE 1 -7 YEARS AGO [facility] Mar 06, 2005 01:30 PM QUIT TOBACCO USE IN PAST Y EAR Pt quit 2002 [facility] Dec 24, 2004 03:00 PM QUIT TOBACCO USE IN PAST YEAR [facility] Jul 30, 2004 02:00 PM HISTORY OF SMOKING Quit 3 years ago [facility] Advance Directives: All historical and current Section Date Range: From patient's date of to the date document was created. This section includes ALL of a patient's completed or amended [place] Advance and Rescinded Directives. The entries below indicate that a directive exists for the patient, but an actual copy is not included with this document. The data comes from all [facility]. Date Advance Directives Provider Source Mar 15, 2008 ADVANCE DIRECTIVE GERARDO MARSH [place] [facility] Encounter Notes: All associated encounter notes This section contains the clinical notes associated to the Encounter. Date/Time Encounter Note(s) Provider Source Aug 25, 2023 01:27 PM PREVENTIVE MEDICIN E NURSING NOTE: LOCAL TITLE: CLINICAL REMINDERS/NURSING STANDARD TITLE: PREVENTIVE MEDICINE NURSING NOTE DATE OF NOTE: AUG 25, 2023@13:27 ENTRY DATE: AUG 25, 2023@13:27:58 AUTHOR: RUBY MERCHANT COSIGNER: URGENCY: STATUS: COMPLETED Home Telehealth (CCHT) Referral: Patient declines participation in CCHT Program at this time. Tdap Immunization: The patient declines to receive the recommended dose of Tdap vaccine. Immunization: TDAP Refusal Reason: PATIENT DECISION Patient refuses all immunization(s) in the TDAP group Date Documented: 08/25/23 13:28 Herpes Zoster (Shingles) Vaccine: The patient declines to receive the recommended dose of zoster (shingles) vaccine. Immunization: ZOSTER RECOMBINANT Refusal Reason: PATIENT DECISION Patient refuses the ZOSTER RECOMBINANT immunization Date Documented: 08/25/23 13:28 RHS Screen: RHS Screen Session Format: Face to Face Environmental Check Upon inquiry, the individual reports that the environment is safe to proceed. Informed Consent to Screen and Document The individual consents to proceed with screening. The individual consents to documentation of responses. PRIMARY SCREEN: In the past 12 months, how often did a current or former intimate partner (e.g., boyfriend, girlfriend, , , sexual partner): 1. Scream or curse at you Never 2. Insult or talk down to you Never 3. Threaten you with harm Never 4. Physically hurt you Never 5. Force or pressure you to have sexual contact against your will, or when you were unable to say no Never ?? The HITS tool (items 1-4 above) is [place] copyright protected by Vinny Manzano MD, and the user has full rights to use it throughout the [place] system. PRIMARY SCREEN RESULT: The Primary Screen is NEGATIVE. The individual answered never to all forms of IPV above (i.e., answered never to all 5 items) The individual accepts education and/or resources: No EDUCATION: The individual indicated readiness to learn. Education offered during this session as noted above. The individual indicated understanding by asking relevant questions and making appropriate comments. No barriers to learning were observed or identified. MED REC COMPLETED BY PROVIDER DURING VISIT. /josue/ RUBY MERCHANT LPN LPN Signed: 08/25/2023 13:31 RUBY MERCHANT [facility] Aug 25, 2023 08:36 AM PHYSICIAN NOTE: LOCAL TITLE: MD NOTE STANDARD TITLE: PHYSICIAN NOTE DATE OF NOTE: AUG 25, 2023@08:36 ENTRY DATE: AUG 25, 2023@08:36:09 AUTHOR: KARRI FARIA EXP COSIGNER: URGENCY: STATUS: COMPLETED CC: 87 year old WHITE MALE SERVICE CONNECTED % - NONE FOUND HPI: Wound care completed on legs Patient declined cardiac rehab; did exercises at home. Had a meeting with Dr. Partida (cardiology) with recent echo - was told everything as stable. Problem list and medications reviewed. Active problems - Computerized Problem List is the source for the followin. Normocytic anemia persistent 2. Bladder cancer 3. Wound Right lower leg wound Managed by [facility] wound care 4. Carotid artery stenosis 5. CHF - Congestive Heart Failure ([facility] [id number]) 6. CAD - Coronary Artery Disease ([facility] [id number]) s/p 2 stents 7. COPD - Chronic Obstructive Pulmonary Disease ([facility] [id number]) 8. AF- Atrial Fibrillation ([facility] [id number]) 9. Sleep Apnea ([facility] [id number]) 10. Non-VA providers PCP-Dr.Glen Rojo Isotope Technician-Dr.Nirav Partida Urologist-Dr. Markus Rojo--telephone # [phone] 11. Bilateral Cataracts exam 11/06/2009 12. Hypertensive retinopathy right eye 13. Colonic Polyps benign polyps next colo 04/17/2013 14. Hyperplasia of Prostate, unspecified, without Urinary obstruction and other 15. Spinal stenosis of lumbar region surgery l4-l5 decompression 06/01/08 16. Hypertensive heart disease with congestive heart failure (SNOMED CT [id number]) +microalbuminuria PHYSICAL EXAMINATION/DIRECTED EXAM: BP:146/66 (08/25/2023 13:26) Resp:22 (08/25/2023 13:26) Temp:97.5 F [36.4 C] (08/25/2023 13:26) Pulse:92 (08/25/2023 13:26) WEIGHT 08/25/2023 13:26 158(71.67)[21] 05/25/2023 13:45 154.1(69.90)[20] 07/04/2022 11:53 158(71.67)[21] Comfortable S1S2 RRR lungs CTA Benign abdomen No edema Anemia CBC TREND Collection DT Spec WBC RBC HGB HCT MCV MCH PLT 07/08/2023 09:45 BLOOD 4.67 3.90 L 12.1 L 38.0 L 97.4 31.0 223 05/21/2022 10:08 BLOOD 5.23 3.82 L 11.7 L 37.2 L 97.4 30.6 216 03/06/2022 14:26 BLOOD 5.72 3.37 L 11.0 L 34.6 L 102.7 H 32.6 262 ASSESSMENT & PLAN: 87 year old MALE SERVICE CONNECTED % - NONE [place] presents for 3-month follow-up. On the interim the patient appears to have gotten stronger on his own but may have plateaued. In the same vein he suspects his medications are causing him to be weak. Than what he should be. I reinstated the importance of speaking with his prescribers so that they can decide on stopping some of the medications which may potentially be causing side effects. I have also emphasized the idea of using physical therapy (whether its been [facility] or the [facility] to help him get stronger). As far as the neuropathy the patient is unaware of any studies to investigate why he has numbness on all 4 extremities. He is unwilling to take more medications but is willing to engage in investigations to at least 2 identify remediable causes. He is encouraged to seek basic laboratory investigations, nerve conduction study as well as specialty consultation if necessary. He states that he will speak with Dr. Trimble about getting both done. Chronic issues reviewed briefly; no changes to management unless specified above. RTC 3 months TIME ATTESTATION: Time spent directly with the patient was ( x ) 30 minutes More than 50% of the time spent with the patient included counselling regarding the admission Medical Review, History and Physical Examination, discussion of the findings, both remote and local data in the medical record, management, and patient education for the annotated medical conditions above. Discussed with patient and agrees to plan. VA and Non VA meds were reconciled. Today's documentation was made using voice recognition software. This note may contain spelling/grammatical errors secondary to this software. Patient provided copies of labs/studies and medication list. Upcoming Appointments: 05/25/2024 13:00 CWM/SO/PACT 9 Med Reconciliation: Active Outpatient Medications (including Supplies): Active Outpatient Medications Status 1) ALBUTEROL 90MCG (CFC-F) 200D ORAL INHL INHALE 2 PUFFS ACTIVE BY MOUTH EVERY 4 HOURS NEEDED FOR BRONCHOSPASM 2) ATORVASTATIN CALCIUM 40MG TAB TAKE ONE-HALF TABLET BY ACTIVE (S) MOUTH ONCE DAILY 3) BETHANECHOL CHLORIDE 25MG TAB TAKE TWO TABLETS BY ACTIVE MOUTH TWICE DAILY FOR URINARY RETENTION 4) FINASTERIDE 5MG TAB TAKE ONE TABLET BY MOUTH ONCE ACTIVE (S) DAILY FOR PROSTATE 5) OLODATEROL/TIOTROP 2.5MCG/ACTUAT 60D INH INHALE 2 ACTIVE (S) PUFFS (1 DOSE) BY MOUTH ONCE DAILY 6) RIVAROXABAN 15MG TAB TAKE ONE TABLET BY MOUTH ONCE ACTIVE (S) DAILY TO PREVENT BLOOD CLOTS WITH FOOD DOSE REDUCTION:DISCONTINUE 20MG TABS) 7) SACUBITRIL 24MG/VALSARTAN 26MG TAB TAKE 1 TABLET BY ACTIVE MOUTH TWICE DAILY 8) TORSEMIDE 20MG TAB TAKE THREE TABLETS BY MOUTH ONCE ACTIVE (S) DAILY Active Non-VA Medications Status 1) Non-VA AMLODIPINE BESYLATE 5MG TAB 5MG BY MOUTH ONCE ACTIVE DAILY 2) Non-VA BETHANECHOL CHLORIDE TAB BY MOUTH ACTIVE 3) Non-VA FERROUS SULFATE 325MG TAB 325MG BY MOUTH ONCE ACTIVE DAILY 4) Non-VA FINASTERIDE 5MG TAB 5MG BY MOUTH ONCE DAILY ACTIVE 5) Non-VA POTASSIUM CHLORIDE 10MEQ SA TAB 10MEQ BY MOUTH ACTIVE ONCE DAILY 6) Non-VA RIVAROXABAN 20MG TAB 20MG BY MOUTH ONCE DAILY ACTIVE 7) Non-VA TAMSULOSIN HCL 0.4MG CAP 0.4MG BY MOUTH ONCE ACTIVE DAILY 15 Total Medications Medication (Local) Status No local medications found. Medication (Remote) Status No remote medications found. /josue/ KARRI FARIA MD PHYSICIAN Signed: 09/03/2023 16:12 KARRI FARIA [facility]
--- OUTSIDE RECORDS SUMMARY | 2024-06-07 14:14 | XMS_ITS ---
Author Name [place] Organization [place] Address [address] [place] [address] Care Team Providers Care Dry Clipper Tender Name Role Phone KARRI FARIA Primary Care [...] Patient's Relationship to Policy [employer] ([id number]) PRESCRIPT ION [place] RAMESH TIES Jan 05, 2009 [id number] NEVERSMICHAELA PATIENT [facility] MEDICARE SUPPLEMEN TAL [place] IND Jun 29, 2016 MEDICAR E SUPPLEM E [id number] NEVERSMICHAELA VINOD PATIENT MEDICARE (WN) MEDICARE (M) PART A October 28, 1999 PART A [id number] SISSY LAYADAMS PATIENT MEDICARE (WN) MEDICARE (M) PART B October 28, 1999 PART B [id number] ADAMS SHEEHAN JR PATIENT UMR MEDIGAP PLAN C [place] RAMESHI TIES Apr 05, 2007 [id number] MICHAELA SHEEHAN PATIENT Selected Encounter This section includes the information on record at [place] for the Encounter. Date/Time Encounter Type Encounter Description Reason Pro vider Source November 06, 2023 03:04 PM Outpatient Encounter PRIMARY CARE/MEDICINE IHE Encounter Template Text not used by [place] Plan of Treatment: Future Appointments (+ 6 months) and Future Tests (+/- 45 days) The Plan of Treatment section includes future care activities for the patient from all [place] treatmentfacilities. This section includes future appointments and future orders which are active, pending or scheduled. Future Appointments This section includes appointments that were scheduled to occur 6 months from the date of the Encounter, up to a maximum of 20 appointments. The data comes from all [place] treatment facilities. Appointment Date/Time Appointment Type Appointme nt Facility Name November 25, 2023 01:00 PM AMBULATORY - MEDICINE [facility] Feb 03, 2024 10:30 AM [facility] MEDICINE [facility] Advance Directives: All historical and current Section Date Range: From patient's date of to the date document was created. This section includes ALL of a patient's completed or amended [place] Advance and Rescinded Directives. The entries below indicate that a directive exists for the patient, but an actual copy is not included with this document. The data comes from all [place] facilities. Date Advance Directives Provider Source Mar 15, 2008 ADVANCE DIRECTIVE GERARDO MARSH [facility] Encounter Notes: All associated encounter notes This section contains the clinical notes associated to the Encounter. 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 0.4 mg PO DAILY MAX Daily Dose: Refills:1 Duration: 90 Days Supply: 90 PRESCRI PTION Diagnosis:R33.9 N39.0 Retention of urine, unspecified urinary tract infection, site not specified RX (bethanechol chloride 50 mg Tablet 100 mg Pp 3IT 90 Days 1 Ref) Name: bethanechol chloride (bethanechel chloride) 50 mg tablet Qty:360 tab 100 mg PO BID Refills; 1 Duration:90 Notes to Pharmacy: mail to vet - supply ae 50 mg tablets to minimize tablet count MARTIN FARAH MD NPI#: [id number] SHANE#: [id number] MAIL The following actions were performed: Prescription Attached, Placed in Provider Folder, PACT Team RN and Provider added as additional Signers to this request *Please let patient know that this request may take up to 72 hours to process.* /josue/ RUBY MERCHANT LPN LPN Signed: 11/06/2023 15:22 Receipt Acknowledged By: * AWAITING SIGNATURE * KARRI FARIA CINDY [place]
--- OUTSIDE RECORDS SUMMARY | 2024-06-07 14:14 | XMS_ITS | Encounter Summary ---
Author Name [facility] [place] Address [address] [place] [address] Care Team Providers Care Refinery Technician Name Role Phone KARRI FARIA Primary Care [...] Patient's Relationship to Policy [employer] ([id number]) PRESCRIPT ION BRAVE RAMESH TIES Jan 05, 2009 [id number] NEVERSMICHAELA PATIENT [facility] MEDICARE SUPPLEMEN TAL [place] IND Jun 29, 2016 MEDICAR E SUPPLEM E [id number] NEVERSMICHAELA PATIENT MEDICARE (WNR) MEDICARE (M) PART A October 28, 1999 PART A [id number] ADAMS SHEEHAN JR PATIENT MEDICARE (WNR) MEDICARE (M) PART B October 28, 1999 PART B [id number] ADAMS SHEEHAN JR PATIENT UMR MEDIGAP PLAN C [place] KEILY CHANDLERI TIES Apr 05, 2007 [id number] MICHAELA SHEEHAN PATIENT Selected Encounter This section includes the information on record at [place] for the Encounter. Date/Time Encounter Type Encounter Description Reason Pro vider Source November 06, 2023 01:26 PM Outpatient Encounter ADMIN PAT ACTIVTIES (MASNONCT) IHE Encounter Template Text not used by [place] Plan of Treatment: Future Appointments (+ 6 months) and Future Tests (+/- 45 days) The Plan of Treatment section includes future care activities for the patient from all [place] treatmentfacilities. This section includes future appointments and future orders which are active, pending or scheduled. Future Appointments This section includes appointments that were scheduled to occur 6 months from the date of the Encounter, up to a maximum of 20 appointments. The data comes from all [place] treatment facilities. Appointment Date/Time Appointment Type Appointme nt Facility Name November 25, 2023 01:00 PM AMBULATORY - MEDICINE [facility] Feb 03, 2024 10:30 AM AMBULATORY MEDICINE [facility] Advance Directives: All historical and current Section Date Range: From patient's date of to the date document was created. This section includes ALL of a patient's completed or amended [place] Advance and Rescinded Directives. The entries below indicate that a directive exists for the patient, but an actual copy is not included with this document. The data comes from all [place] facilities. Date Advance Directives Provider Source Mar 15, 2008 ADVANCE DIRECTIVE GERARDO MARSH [facility] Encounter Notes: All associated encounter notes This section contains the clinical notes associated to the Encounter. Date/Time Encounter Note(s) Provider Source November 06, 2023 01:26 PM ADMINISTRATIVE NOT E: LOCAL TITLE: CCC: SCHEDULING ADMINISTRATION STANDARD TITLE: ADMINISTRATIVE NOTE DATE OF NOTE: NOVEMBER 06, 2023@13:26:18 ENTRY DATE: NOVEMBER 06, 2023@13:26:18 AUTHOR: ALLISON STRICKLAND COSIGNER: URGENCY: STATUS: COMPLETED CCC: SCHEDULING ADMINISTRATION Has ADDENDA Patient Demographics Patient Name: ADAMS SHEEHAN Patient Primary Phone: [phone] Patient Primary Address: [address] [place] [address] Patient : 1935 Patient Age: 87 Caller/Recipient Relation to Patient: Self Administrative Administrative Note Reason: Other Administrative Note Comments: [place] states he missed a phone call regarding a medication. He is out of BETHANECHOL CHLORIDE 25MG and needs a refill. There's no documentation of a phone call in notes from today. thank you /josue/ ALLISON STRICKLAND Signed: 11/06/2023 13:26 Receipt Acknowledged By: 11/09/2023 09:59 /es/ KARRI FARIA MD PHYSICIAN 11/06/2023 13:31 /josue/ LEN NEGRETE,RN-BC REGISTERED NURSE (RN) 11/06/2023 ADDENDUM STATUS: COMPLETED Called and left him a vm message stating he can stop by the clinic to refill his medication as he has one refill remaining. /josue/ LEN NEGRETE,RN-BC REGISTERED NURSE (RN) Signed: 11/06/2023 13:52 ALLISON STRICKLAND [place] [facility]
--- OUTSIDE RECORDS SUMMARY | 2024-06-07 14:15 | XMS_ITS | Encounter Summary ---
Author Name [facility] [place] Organization [place] Address [address] [place] [address] Care Team Providers Care Gear Cutting Machine Set Up Operator Name Role Phone KARRI FARIA Primary [...] Patient's Relationship to Policy [employer] ([id number]) PRESCRIPT ION BLAIN RAMESH TIES Jan 05, 2009 [id number] [phone] NEVERSMICHAELA PATIENT [facility] MEDICARE SUPPLEMEN TAL [place] IND Jun 29, 2016 MEDICAR E SUPPLEM E [id number] NEVERSMICHAELA VINOD PATIENT MEDICARE (WN) MEDICARE (M) PART A October 28, 1999 PART A [id number] SISSY LAYADAMS PATIENT MEDICARE (WN) MEDICARE (M) PART B October 28, 1999 PART B [id number] ADAMS SHEEHAN JR PATIENT UMR MEDIGAP PLAN C BLAIN RAMESHI TIES Apr 05, 2007 [id number] [phone] NEVERS,MICHAELA BROCK PATIENT Selected Encounter This section includes the information on record at [place] for the Encounter. Date/Time Encounter Type Encounter Description Reason Pro vider Source November 03, 2023 12:00 AM Outpatient Encounter EVENT (HISTORICAL) IHE Encounter Template Text not used by [place] Plan of Treatment: Future Appointments (+ 6 months) and Future Tests (+/- 45 days) The Plan of Treatment section includes future care activities for the patient from all [place] treatmentfacilities. This section includes future appointments and future orders which are active, pending or scheduled. Future Appointments This section includes appointments that were scheduled to occur 6 months from the date of the Encounter, up to a maximum of 20 appointments. The data comes from all [place] treatment facilities. Appointment Date/Time Appointment Type Appointme nt Facility Name November 25, 2023 01:00 PM AMBULATORY - MEDICINE [facility] Feb 03, 2024 10:30 AM AMBULATORY MEDICINE [facility] Advance Directives: All historical and current Section Date Range: From patient's date of to the date document was created. This section includes ALL of a patient's completed or amended [place] Advance and Rescinded Directives. The entries below indicate that a directive exists for the patient, but an actual copy is not included with this document. The data comes from all [place] facilities. Date Advance Directives Provider Source Mar 15, 2008 ADVANCE DIRECTIVE GERARDO MARSH [facility] Encounter Notes: All associated encounter notes This section contains the clinical notes associated to the Encounter. Date/Time Encounter Note(s) Provider Source November 03, 2023 12:00 AM NURSING ADMINISTRA TIVE NOTE: LOCAL TITLE: NON-VA PRESCRIPTION STANDARD TITLE: NURSING ADMINISTRATIVE NOTE DATE OF NOTE: NOVEMBER 03, 2023 ENTRY DATE: NOVEMBER 16, 2023@11:32:51 AUTHOR: TONY CASTRO EXP COSIGNER: URGENCY: STATUS: COMPLETED VistA Imaging - Scanned Document SCANNED DOCUMENT SIGNATURE NOT REQUIRED Electronically Filed: 11/16/2023 by: TONY ALLEN [facility]
--- OUTSIDE RECORDS SUMMARY | 2024-06-07 14:16 | XMS_ITS | Encounter Summary ---
Author Name [facility] [place] Address [address] [place] [address] Care Team Providers Care Gang Mower Operator Name Role Phone KARRI FARIA Primary Care Provider Unarebel ilgilbert Insurance Providers: All historical and current [...] Patient's Relationship to Policy [employer] ([id number]) PRESCRIPT ION [facility] TIES Jan 05, 2009 [id number] [phone] NEVERSMICHAELA SEPH PATIENT [facility] MEDICARE SUPPLEMEN TAL [place] IND Jun 29, 2016 MEDICAR E SUPPLEM E [id number] NEVERSMICHAELA SEPH PATIENT MEDICARE (WNR) MEDICARE (M) PART A October 28, 1999 PART A [id number] ADAMS SHEEHAN JR PATIENT MEDICARE (WNR) MEDICARE (M) PART B October 28, 1999 PART B [id number] ADAMS SHEEHAN JR PATIENT UMR MEDIGAP PLAN C [facility] TIES Apr 05, 2007 [id number] NEVERSMICHAELA SEPH PATIENT Selected Encounter This section includes the information on record at [place] for the Encounter. Date/Time Encounter Type Encounter Description Reason Provider Source November 25, 2023 01:20 PM Outpatient Encounter PRIMARY CARE/MEDICINE HOMERO FARIA Encounter Template Text not used by [place] Plan of Treatment: Future Appointments (+ 6 months) and Future Tests (+/- 45 days) The Plan of Treatment section includes future care activities for the patient from all [place] treatmentfacilities. This section includes future appointments and future orders which are active, pending or scheduled. Future Appointments This section includes appointments that were scheduled to occur 6 months from the date of the Encounter, up to a maximum of 20 appointments. The data comes from all [place] treatment facilities. Appointment Date/Time Appointment Type Appointme nt Facility Name Feb 03, 2024 10:30 AM AMBULATORY MEDICINE [facility] May 16, 2024 10:00 AM AMBULATORY MEDICINE [facility] May 25, 2024 01:00 PM AMBULATORY MEDICINE [facility] Social History: Smoking Status (Most current) and Tobacco Use (All prior to encounter date) This section includes the most current, and the historical, smoking and tobacco- related health factors from the [place] facility where the Encounter took place. Current Smoking Status This section includes the most current smoking, or tobacco-related health factor, from the [place] facility where the Encounter took place. Date/Time Current Smoking Status Comment Facil ity May 06, 2023 01:41 PM VA-TOBACCO FORMER USER [facility] Tobacco Use History This section includes a history of the smoking, or tobacco-related health factors, that were collected on or before the date of the Encounter. The data comes from the [place] facility where the Encounter took place. Date/Time Smoking Status/Tobacco Use Comment F acility May 06, 2023 01:41 PM VA-TOBACCO QUIT 15 YRS OR MORE [facility] May 28, 2022 01:30 PM VA-TOBACCO FORMER USER [facility] May 28, 2022 01:30 PM VA-TOBACCO QUIT 15 YRS OR MORE [facility] Jul 11, 2020 11:00 AM VA-TOBACCO FORMER USER [facility] Jul 11, 2020 11:00 AM [place]-TOBACCO QUIT 15 YRS OR MORE [facility] Mar 29, 2009 02:00 PM QUIT TOBACCO USE 1 -7 YEARS AGO stopped tobacco 5 years ago [facility] Mar 09, 2008 09:00 AM QUIT TOBACCO USE 1 -7 YEARS AGO [facility] Aug 19, 2007 01:00 PM QUIT TOBACCO USE 1 -7 YEARS AGO [facility] Aug 13, 2006 01:30 PM QUIT TOBACCO USE 1 -7 YEARS AGO stopped tobacco 4 years ago [facility] Aug 08, 2005 08:30 AM QUIT TOBACCO USE 1 -7 YEARS AGO [facility] Mar 06, 2005 01:30 PM QUIT TOBACCO USE IN PAST Y EAR Pt quit 2002 [facility] Dec 24, 2004 03:00 PM QUIT TOBACCO USE IN PAST YEAR [facility] Jul 30, 2004 02:00 PM HISTORY OF SMOKING Quit 3 years ago [facility] Advance Directives: All historical and current Section Date Range: From patient's date of to the date document was created. This section includes ALL of a patient's completed or amended [place] Advance and Rescinded Directives. The entries below indicate that a directive exists for the patient, but an actual copy is not included with this document. The data comes from all [place] facilities. Date Advance Directives Provider Source Mar 15, 2008 [facility]
--- OUTSIDE RECORDS SUMMARY | 2024-06-07 14:16 | XMS_ITS ---
Author Name [facility] [place] Organization [place] Address [address] [place] [address] Care Team Providers Care Shirt Cleaner Name Role Phone KARRI FARIA Primary Care [...] Patient's Relationship to Policy [employer] ([id number]) PRESCRIPT ION EDNA RAMESH TIES Jan 05, 2009 [id number] NEVERSMICHAELA PATIENT [facility] MEDICARE SUPPLEMEN TAL [place] IND Jun 29, 2016 MEDICAR E SUPPLEM E [id number] NEVERSMICHAELA PATIENT MEDICARE (WNR) MEDICARE (M) PART A October 28, 1999 PART A [id number] ADAMS SHEEHAN JR PATIENT MEDICARE (WNR) MEDICARE (M) PART B October 28, 1999 PART B [id number] ADAMS SHEEHAN JR PATIENT UMR MEDIGAP PLAN C [place] KEILY CHANDLERI TIES Apr 05, 2007 [id number] NEVERSMICHAELA PATIENT Selected Encounter This section includes the information on record at [place] for the Encounter. Date/Time Encounter Type Encounter Description Reason Pro vider Source November 16, 2023 03:37 PM Outpatient Encounter ADMIN PAT ACTIVTIES (MASNONCT) IHE Encounter Template Text not used by [place] Plan of Treatment: Future Appointments (+ 6 months) and Future Tests (+/- 45 days) The Plan of Treatment section includes future care activities for the patient from all [place] [facility] [place]. This section includes future appointments and future orders which are active, pending or scheduled. Future Appointments This section includes appointments that were scheduled to occur 6 months from the date of the Encounter, up to a maximum of 20 appointments. The data comes from all [place] treatment facilities. Appointment Date/Time Appointment Type Appointme nt Facility Name November 25, 2023 01:00 PM AMBULATORY MEDICINE [facility] Feb 03, 2024 10:30 AM [facility] May 16, 2024 10:00 AM [facility] MEDICINE [facility] Advance Directives: All historical and current Section Date Range: From patient's date of to the date document was created. This section includes ALL of a patient's completed or amended [place] Advance and Rescinded Directives. The entries below indicate that a directive exists for the patient, but an actual copy is not included with this document. The data comes from all [facility]. Date Advance Directives Provider Source Mar 15, 2008 ADVANCE DIRECTIVE GERARDO MARSH [facility] Encounter Notes: All associated encounter notes This section contains the clinical notes associated to the Encounter. Date/Time Encounter Note(s) Provider Source November 16, 2023 03:37 PM MEDICATION MGT NOT E: LOCAL TITLE: OUTPATIENT MEDICATION REQUEST STANDARD TITLE: MEDICATION MGT NOTE DATE OF NOTE: NOVEMBER 16, 2023@15:37 ENTRY DATE: NOVEMBER 16, 2023@15:37:44 AUTHOR: SHELLY MONTANO EXP COSIGNER: URGENCY: STATUS: COMPLETED Medication Request Date of Request: October Is this a New Medication? No Received refill request slip in the mail for the following medication: FINASTERIDE 5MG TAB [facility]: [address]-15 (3) *Dosage: 5 (MG) Verb: TAKE Dispense Units: 1 Noun: TABLET *Route: ORAL *Schedule: DAILY (4)Pat Instructions: for prostate The following actions were performed: PACT Team RN and Provider added as additional Signers to this request *Please let patient know that this request may take up to 72 hours to process.* /jsoue/ SHELLY MONTANO Signed: 11/16/2023 15:38 Receipt Acknowledged By: 12/30/2023 09:15 /es/ KARRI FARIA MD PHYSICIAN 11/16/2023 15:43 /es/ NINA NEGRETEN,RN-BC REGISTERED NURSE (RN) SHELLY MONTANO CNT[facility]
--- OUTSIDE RECORDS SUMMARY | 2024-06-07 14:16 | XMS_ITS | Encounter Summary ---
Author Name [place] Address [address] [place] [address] Care Team Providers Care Teaching Associate Name Role Phone KARRI FARIA Primary Care [...] Patient's Relationship to Policy [employer] ([id number]) PRESCRIPT ION [facility] TIES Jan 05, 2009 [id number] NEVERS,MICHAELA SEPH PATIENT [facility] MEDICARE SUPPLEMEN TAL [place] IND Jun 29, 2016 MEDICAR E SUPPLEM E [id number] NEVERSMICHAELA VINOD PATIENT MEDICARE (WNR) MEDICARE (M) PART A October 28, 1999 PART A [id number] ADAMS SHEEHAN JR PATIENT MEDICARE (WN) MEDICARE (M) PART B October 28, 1999 PART B [id number] ADAMS SHEEHAN JR PATIENT UMR MEDIGAP PLAN C [facility] TIES Apr 05, 2007 [id number] NEVERS,MICHAELA SEPH PATIENT Selected Encounter This section includes the information on record at [place] for the Encounter. Date/Time Encounter Type Encounter Description Reason Provider Source November 25, 2023 01:00 PM OFFICE O/P EST MOD 30 MIN PRIMARY CARE/MEDICINE ICD-10-CM Z91.89 Ot personal risk factors, not elsewhere classified CARLOS FARIA IHPadmini Encounter Template Text not used by [place] Assessments - Encounter Diagnoses This section includes the primary and secondary diagnoses documented for the Encounter. Date/Time Primary/Secondary Diagnosis Diagnosis Name Provider Source November 26, 2023 10:42 AM PRIMARY Oth personal risk factors, not elsewhere classified ARTEM FARIA [place] Plan of Treatment: Future Appointments (+ 6 months) and Future Tests (+/- 45 days) The Plan of Treatment section includes future care activities for the patient from all [place] [facility]. This section includes future appointments and future orders which are active, pending or scheduled. Future Appointments This section includes appointments that were scheduled to occur 6 months from the date of the Encounter, up to a maximum of 20 appointments. The data comes from all [place] treatment facilities. Appointment Date/Time Appointment Type Appointme nt Facility Name Feb 03, 2024 10:30 AM AMBULATORY - MEDICINE [facility] May 16, 2024 10:00 AM AMBULATORY MEDICINE [facility] May 25, 2024 01:00 PM AMBULATORY MEDICINE [facility] Social History: Smoking Status (Most current) and Tobacco Use (All prior to encounter date) This section includes the most current, and the historical, smoking and tobacco- related health factors from the [place] facility where the Encounter took place. Current Smoking Status This section includes the most current smoking, or tobacco-related health factor, from the [place] facility where the Encounter took place. Date/Time Current Smoking Status Comment Marilyn figueroa May 06, 2023 01:41 PM VA-TOBACCO FORMER USER [place] Tobacco Use History This section includes a history of the smoking, or tobacco-related health factors, that were collected on or before the date of the Encounter. The data comes from the [place] facility where the Encounter took place. Date/Time Smoking Status/Tobacco Use Comment F meenakshi May 06, 2023 01:41 PM [place]-TOBACCO QUIT 15 YRS OR MORE [place] May 28, 2022 01:30 PM VA-TOBACCO FORMER USER [place] May 28, 2022 01:30 PM VA-TOBACCO QUIT 15 YRS OR MORE [place] Jul 11, 2020 11:00 AM VA-TOBACCO FORMER USER [place] Jul 11, 2020 11:00 AM VA-TOBACCO QUIT 15 YRS OR MORE [place] Mar 29, 2009 02:00 PM QUIT TOBACCO USE 1 -7 YEARS AGO stopped tobacco 5 years ago [place] Mar 09, 2008 09:00 AM QUIT TOBACCO USE 1 -7 YEARS AGO [place] Aug 19, 2007 01:00 PM QUIT TOBACCO USE 1 -7 YEARS AGO [place] Aug 13, 2006 01:30 PM QUIT TOBACCO USE 1 -7 YEARS AGO stopped tobacco 4 years ago [place] Aug 08, 2005 08:30 AM QUIT TOBACCO USE 1 -7 YEARS AGO [place] Mar 06, 2005 01:30 PM QUIT TOBACCO USE IN PAST Y EAR Pt quit 2002 [place] Dec 24, 2004 03:00 PM QUIT TOBACCO USE IN PAST YEAR [place] Jul 30, 2004 02:00 PM HISTORY OF SMOKING Quit 3 years ago [place] Advance Directives: All historical and current Section Date Range: From patient's date of to the date document was created. This section includes ALL of a patient's completed or amended [place] Advance and Rescinded Directives. The entries below indicate that a directive exists for the patient, but an actual copy is not included with this document. The data comes from all [place] facilities. Date Advance Directives Provider Source Mar 15, 2008 ADVANCE DIRECTIVE GERARDO MARSH [facility] Encounter Notes: All associated encounter notes This section contains the clinical notes associated to the Encounter. Date/Time Encounter Note(s) Provider Source November 25, 2023 01:20 PM PREVENTIVE MEDICIN E NURSING NOTE: LOCAL TITLE: CLINICAL REMINDERS/NURSING STANDARD TITLE: PREVENTIVE MEDICINE NURSING NOTE DATE OF NOTE: NOVEMBER 25, 2023@13:20 ENTRY DATE: NOVEMBER 25, 2023@13:20:25 AUTHOR: ALIRIO FRAUSTO EXP COSIGNER: URGENCY: STATUS: COMPLETED COVID-19 Immunization: Refused Moderna Monovalent COVID-19 vaccine Immunization: COVID-19 (MODERNA), MRNA, LNP-S, PF, 50 MCG/0.5 ML (AGES 12+ YEARS) Refusal Reason: PATIENT DECISION Patient refuses all immunization(s) in the COVID-19 group Date Documented: 11/25/23 13:20 Tdap Immunization: The patient declines to receive the recommended dose of Tdap vaccine. Immunization: TDAP Refusal Reason: PATIENT DECISION Patient refuses all immunization(s) in the TDAP group Date Documented: 11/25/23 13:21 Herpes Zoster (Shingles) Vaccine: The patient declines to receive the recommended dose of zoster (shingles) vaccine. Immunization: ZOSTER RECOMBINANT Refusal Reason: PATIENT DECISION Patient refuses all immunization(s) in the ZOSTER group Date Documented: 11/25/23 13:21 /josue/ ANTWAN FRAUSTO LPN LPN Signed: 11/25/2023 13:21 ANTWAN FRAUSTO [place] November 25, 2023 08:22 AM PHYSICIAN NOTE: LOCAL TITLE: MD NOTE STANDARD TITLE: PHYSICIAN NOTE DATE OF NOTE: NOVEMBER 25, 2023@08:22 ENTRY DATE: NOVEMBER 25, 2023@08:22:20 AUTHOR: KARRI FARIA EXP COSIGNER: URGENCY: STATUS: COMPLETED SUBJECT: 3mo REASON FOR VISIT/CHIEF COMPLAINT: Follow-up on bladder CA/medications/CHF Seen 3 mos ago with what appears a dire situation about his medications: ... ASSESSMENT & PLAN: 87 year old MALE SERVICE CONNECTED % - NONE FOUND presents for 3-month follow-up. On the interim [...] of using physical therapy (whether its [facility] or [facility] to [...] with Dr. Trimble about getting both done. RTC 3 months INTERVAL HISTORY: PAtient has worked with his nonVA PCP and has recommended stpping bethanecol without incident. PHYSICAL EXAMINATION: BP:111/63 (11/25/2023 13:19) Resp:20 (11/25/2023 13:19) Temp:96.2 F [35.7 C] (11/25/2023 13:19) Pulse:63 (11/25/2023 13:19) WEIGHT Measurement DT WEIGHT LB(KG)[BMI] 11/25/2023 13:19 159(72.12)[21] 08/25/2023 13:26 158(71.67)[21] 05/25/2023 13:45 154.1(69.90)[20] S1S2 RRR lungs CTA b/l INTERVAL LABS: Jun 2023 ASSESSMENT & PLAN: 88yo CoManaged patient with complicated cardiac/pulmonary/urologic history with increasing wariness of his medications as his chronic conditions have worsened. I have encouraged him to look beyond his medications as focus of his attention of self-care. Recently he exprienced transient double vision and he blaned it on his medication. 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 Despite this he askes which medication he can remove: Flomax can be a candidate but he really need to check with his urologist. Maura short term trial off it may result to obstructive sxs. He seems to understand the implication. Encouraged the patient to continue to pursue his dreams : ride his motorcycle with his friends, continue to grow stonger in balance and stamina, spend time with grandchildren. He is quite appreciative or redirection. Consider [facility] referral. Plan of care discussed with patient who articulates understanding. RTC 6 mos before holidays for supportive care. /josue/ KARRI FARIA MD PHYSICIAN Signed: 11/26/2023 10:42 KARRI FARIA [place]
--- OUTSIDE RECORDS SUMMARY | 2024-06-07 14:17 | XMS_ITS | Encounter Summary ---
Author Name [facility] Organization [facility] Address [address] [place] [id number] Care Team Providers Care Bond Analyst Name Role Phone KARRI FARIA Primary Care [...] Patient's Relationship to Policy [employer] ([id number]) PRESCRIPT ION GRE[place] RAMESH TIES Jan 05, 2009 [id number] NEVERSMICHAELA PATIENT [facility] MEDICARE SUPPLEMEN TAL MA IND Jun 29, 2016 MEDICAR E SUPPLEM E [id number] NEVERSMICHAELA VINOD PATIENT MEDICARE (WN) MEDICARE (M) PART A October 28, 1999 PART A [id number] SISSY LAYADAMS PATIENT MEDICARE (WN) MEDICARE (M) PART B October 28, 1999 PART B [id number] ADAMS SHEEHAN JR PATIENT [employer] MEDIGAP PLAN C GREEN POND RAMESHI TIES Apr 05, 2007 [id number] [phone] MICHAELA SHEEHAN PATIENT Selected Encounter This section includes the information on record at [facility] for the Encounter. Date/Time Encounter Type Encounter Description Reason Pro vider Source Feb 03, 2024 10:37 AM Outpatient Encounter PRIMARY CARE/MEDICINE IHE Encounter Template Text not used by ID Plan of Treatment: Future Appointments (+ 6 months) and Future Tests (+/- 45 days) The Plan of Treatment section includes future care activities for the patient from all [facility] treatmentfacilities. This section includes future appointments and future orders which are active, pending or scheduled. Future Appointments This section includes appointments that were scheduled to occur 6 months from the date of the Encounter, up to a maximum of 20 appointments. The data comes from all [facility] treatment facilities. Appointment Date/Time Appointment Type Appointme nt Facility Name May 16, 2024 10:00 AM AMBULATORY - MEDICINE [facility] [place] [facility] May 25, 2024 01:00 PM AMBULATORY - MEDICINE ID [facility] [place] [facility] May 31, 2024 08:15 AM AMBULATORY - REHAB MEDICIN E [facility] [place] [facility] Lab Results: +/- 30 days [...] Result - Unit Interpretation Reference Range Comment Feb 03, 2024 11:37 AM [facility] [place] [facility] VITAMIN B12 Specimen Type: SERUM No comment entered. Ordering Provider: ARTEM FARIA Report Released Date/Time: Feb 03, 2024 11:33 AM Reporting Lab: [facility] [place] [facility] [address] [address] Performing Lab: [facility] [place] [facility] [address] [address] VITAMIN B12 472 pg/mL 200-900 Feb 03, 2024 11:37 AM [facility] [place] [facility] TSH Specimen Type: SERUM No comment entered. Ordering Provider: ARTEM FARIA Report Released Date/Time: Feb 03, 2024 11:33 AM Reporting Lab: [facility] [place] [facility] [address] [address] Performing Lab: [facility] [place] [facility] [address] [address] TSH 2.33 u[IU]/mL 0.35-5.00 Feb 03, 2024 11:37 AM [facility] [place] [facility] FERRITIN Specimen Type: SERUM No comment entered. Ordering Provider: ARTEM FARIA Report Released Date/Time: Feb 03, 2024 11:34 AM Reporting Lab: [facility] [place] [facility] [address] [address] Performing Lab: [facility] [place] [facility] [address] [address] FERRITIN 110 ng/mL 20-300 Feb 03, 2024 11:37 AM [facility] FOLATE (WROX) Specimen Type: SERUM No comment entered. Ordering Provider: ARTEM FARIA Report Released Date/Time: Feb 03, 2024 11:34 AM Reporting Lab: [facility] [place] [facility] [address] [address] Performing Lab: [facility] [place] [facility] [address] [address] FOLATE (WROX) 6.28 ng/mL >5.2 Feb 03, 2024 11:37 AM [facility] VITAMIN D (25-OH) Specimen Type: SERUM No comment entered. Ordering Provider: ARTEM FARIA Report Released Date/Time: Feb 03, 2024 11:33 AM Reporting Lab: [facility] [place] [facility] [address] [address] Performing Lab: [facility] [place] [facility] [address] [address] VITAMIN D (25-OH) 30 ng/mL 20-50 Feb 03, 2024 11:37 AM [facility] BASIC METABOLIC PANEL (fasting) Specimen Type: SERUM No comment entered. Ordering Provider: ARTEM FARIA Report Released Date/Time: Feb 03, 2024 11:33 AM Reporting Lab: [facility] [address] [address] Performing Lab: [address] [address] UREA NITROGEN 44 mg/dL H 7-25 GLUCOSE 91 mg/dL 65-100 SODIUM 137 mmol/L 135-145 POTASSIUM 4.1 mmol/L 3.5-5.0 CHLORIDE 105 mmol/L 100-110 CO2 24 meq/L 20-30 CREATININE, Serum 1.12 mg/dL 0.50-1.40 eGFR(CKD-EPI 2020) 63 mL/min >60 Feb 03, 2024 11:37 AM [facility] LIPID PANEL FASTING Specimen Type: SERUM No comment entered. Ordering Provider: ARTEM FARIA Report Released Date/Time: Feb 03, 2024 11:33 AM Reporting Lab: [address] [address] Performing Lab: [address] [address] CHOLESTEROL 98 mg/dL TRIGLYCERIDE 65 mg/dL 0-150 LDL calculated 41 mg/dL 0-129 CHOL/HDL 2.2 HDL CHOLESTEROL 44 mg/dL 40-60 Feb 03, 2024 11:37 AM [facility] LIVER FUNCTION Specimen Type: SERUM No comment entered. Ordering Provider: ARTEM FARIA Report Released Date/Time: Feb 03, 2024 11:33 AM Reporting Lab: [address] [address] Performing Lab: [address] [address] PROTEIN,TOTAL 7.4 g/dL 6.0-8.3 ALBUMIN 4.1 g/dL 3.5-5.0 ALKALINE PHOSPHATASE 64 U/L 40-150 AST 17 U/L 5-34 ALT 7 U/L BILIRUBIN, TOTAL 0.9 mg/dL 0.2-1.2 Feb 03, 2024 11:37 AM [facility] HEMOGLOBIN A1C PANEL Specimen Type: BLOOD Comment: Values obtained from A1C measurements can vary. For atypical A1C assays, a reported value of 7.0 could actually be between 6.72 and 7.28 if measured by a reference method. A reported value of 9.0 could actually be between 8.73 and 9.27. Ref: http://www.ngsp .org/CAPdata.as p Ordering Provider: ARTEM FARIA Report Released Date/Time: Feb 03, 2024 11:33 AM Reporting Lab: [facility] [address] [address] Performing Lab: [address] [address] HEMOGLOBIN A1C 5.3 4.0-5.6 Feb 03, 2024 11:37 AM [facility] CALCIUM Specimen Type: SERUM No comment entered. Ordering Provider: ARTEM FARIA Report Released Date/Time: Feb 03, 2024 11:33 AM Reporting Lab: [facility] [address] [address] Performing Lab: [facility] [address] [address] CALCIUM 9.2 mg/dL 8.5-10.2 Feb 03, 2024 11:37 AM [facility] IRON & TIBC PANEL Specimen Type: SERUM No comment entered. Ordering Provider: ARTEM FARIA Report Released Date/Time: Feb 03, 2024 11:34 AM Reporting Lab: [facility] [address] [address] Performing Lab: [address] [address] TIBC 333 ug/dL 204-475 IRON 79 ug/dL 40-160 Transferrin Saturation 23.7 20.0-50.0 Feb 03, 2024 11:37 AM [facility] CBC AND DIFF (AUTO) Specimen Type: BLOOD No comment entered. Ordering Provider: ARTEM FARIA Report Released Date/Time: Feb 03, 2024 11:33 AM Reporting Lab: [facility] [address] [address] Performing Lab: [facility] [address] [address] WBC 5.43 10*3/uL 4.50-11.00 RBC 3.83 10*6/uL L 4.23-5.66 HGB 12.1 g/dL L 12.8-17 HCT 36.7 L 39.2-50.4 MCV 95.8 fL 82-99 MCHC 33.0 g/dL 30.8-35.1 PLT 212 10*3/uL 140-360 RDW-CV 13.6 12.0-16.0 MONO, ABS 0.56 10*3/uL 0.30-1.10 MCH 31.6 pg 26.2-32.6 NEUT % 75.4 43.7-75.8 LYMPH % 11.0 L 14.0-42.3 MONO % 10.3 5.1-13.7 EOS % 2.2 0.4-6.8 BASO % 0.7 0.1-2.0 NEUT, ABS 4.09 10*3/uL 2.20-7.60 LYMPH, ABS 0.60 10*3/uL L 1.00-3.20 EOS, ABS 0.12 10*3/uL 0.03-0.44 BASO, ABS 0.04 10*3/uL 0.01-0.13 IMMATURE GRAN % 0.4 0.0-0.7 IMMATURE GRAN, ABS 0.02 10*3/uL 0.00-0.06 NRBC % 0.0 0.0-0.0 NRBC, ABS 0.00 10*3/uL 0.00-0.00 Feb 03, 2024 11:28 AM [facility] LYME SEROLOGY PANEL Specimen Type: SERUM Comment: The LYME SEROLOGY PANEL was performed using the FDA-approved Benja SHER Borrelia burdorferi modified two-tier test system. This modified methodology uses a second EIA in place of a western immunoblot assay, which the FDA has determined is substantially equivalent to or better than standard two-tier testing using western blot. Supplemental testing with a second EIA meets CDC guidelines for Lyme disease testing. Performance characteristics of the panel were validated at the [facility]. Results are considered positive only if the initial screening EIA is positive or equivocal, and either or both supplemental EIAs (for IgM and IgG) are positive. Diagnosis of Lyme disease should not be based solely on laboratory results. Clinical and exposure history must be considered. Positive antibody results reflect prior immunologic exposure, and do not necessarily indicate active infection. False positive results are possible in patients with other spirochetal infections, infectious mononucleosis, and connective tissue disorders. Negative results do not exclude B. burgdorferi infection. Only 10-40% of patients with erythema migrans alone have detectable antibodies. False negative results are possible, if specimens are drawn too soon after infection before an antibody response. Antibody induction may be aborted by early antibiotic therapy. Results in immunosuppresse d individuals should be interpreted with caution. If Lyme disease is strongly suspected, but antibody was not detected, a second specimen collected about 2-4 weeks after the first should be tested. This test is NOT for use in screening individuals without signs, symptoms or exposure history. Physicians should report all cases of Lyme disease to their state and local health departments, if applicable. Ordering Provider: ARTEM FARIA Report Released Date/Time: Feb 03, 2024 11:15 AM Reporting Lab: [facility] [address] [address] Performing Lab: [facility] [address] [address] [address] TIER 1 LYME SCREENING EIA Negative Negative LYME AB FINAL INTERPRETATION Negative Negative Vital Signs: All taken on the encounter date This section contains inpatient and outpatient Vital Signs collected on the date of the Encounter. Date/Time Temperature Pulse Blood Pressure Respiratory Rate SP02 Pain Height Weight Body Mass Index Source Feb 03, 2024 10:36 AM 98 88 136/72 97 157 21 [facility] Advance Directives: All historical and current Section [...] Mar 15, 2008 ADVANCE DIRECTIVE G[facility]ARDO MARSH [facility] Encounter Notes: All associated encounter notes This section contains the clinical notes associated to the Encounter. Date/Time Encounter Note(s) Provider Source Feb 03, 2024 10:37 AM PREVENTIVE MEDICIN E NURSING NOTE: LOCAL TITLE: CLINICAL REMINDERS/NURSING STANDARD TITLE: PREVENTIVE MEDICINE NURSING NOTE DATE OF NOTE: FEB 03, 2024@10:37 ENTRY DATE: FEB 03, 2024@10:37:39 AUTHOR: BLADIMIR ERWIN EXP COSIGNER: URGENCY: STATUS: COMPLETED COVID-19 Immunization: Additional Information: [facility] Interim Clinical Considerations for [facility] Vaccine [employer] T[employer] Immunization: The patient may have been vaccinated in the past but written documentation of vaccination is not available today. Herpes Zoster (Shingles) Vaccine: Prior Herpes Zoster vaccination The patient has been vaccinated in the past but written documentation of vaccination is not available today. Patient instructed to obtain a written record of the prior vaccine and bring it to the next appointment. PAVE Foot Check: A complete foot check was completed at this encounter. VISUAL INSPECTION: Includes inspection for skin breaks, deformity, erythema, trauma, pallor on elevation, dependent rubor, nail deformities, extensive callus and pitting edema. Visual exam results: Abnormal Observations: Thickened toenails PEDAL PULSES: Includes palpation of dorsalis and posterior tibial pulses and signs/symptoms of vascular compromise like pain, pallor, parasthesia or paralysis. Present (even if diminished) SENSORY CHECK: Includes 10 gram Monofilament (Marne-Zeeshan) test of sensation. Intact (Greater than or equal to 80% of sites checked) Abnormal (Less than 80% of sites checked): Abnormal (decreased or absent sensation to monofilament): LOW-RISK: LOW RISK INFORMATION PROVIDED: 1. Advised patient not to walk barefoot. 2. Explained the importance of daily foot checks for changes. 3. Stressed the importance of daily foot hygiene, including bathing and complete drying. /josue/ BLADIMIR ERWIN LPN LPN Signed: 02/03/2024 10:38 BLADIMIR ERWIN [place]
--- OUTSIDE RECORDS SUMMARY | 2024-06-07 14:17 | XMS_ITS | Encounter Summary ---
Author Name [facility] [place] [facility] [place] Address [address] [place] [id number] Care Team Providers Care Furniture Detailer Name Role Phone KARRI FARIA Primary Care [...] Patient's Relationship to Policy [employer] ([id number]) PRESCRIPT ION [facility] T[facility] Jan 05, 2009 [id number] [phone] NEVERS,MICHAELA SEPH PATIENT [facility] MEDICARE SUPPLEMEN TAL MA IND Jun 29, 2016 MEDICAR E SUPPLEM E [id number] NEVERSMICHAELA VINOD PATIENT MEDICARE (WNR) MEDICARE (M) PART A October 28, 1999 PART A [id number] ADAMS SHEEHAN JR PATIENT MEDICARE (WN) MEDICARE (M) PART B October 28, 1999 PART B [id number] ADAMS SHEEHAN JR PATIENT UMR MEDIGAP PLAN C [facility] TIES Apr 05, 2007 [id number] NEVERS,MICHAELA SEPH PATIENT Selected Encounter This section includes the information on record at [place] for the Encounter. Date/Time Encounter Type Encounter Description Reason Provider Source Feb 03, 2024 10:30 AM OFFICE O/P EST MOD 30 MIN PRIMARY CARE/MEDICINE ICD-10-CM R53.83 Other fatigue BIENVENIDO,APOISIDORO JOSE Padmini Encounter Template Text not used by [place] Assessments - Encounter Diagnoses This section includes the primary and secondary diagnoses documented for the Encounter. Date/Time Primary/Secondary Diagnosis Diagnosis Name Provider Source Feb 05, 2024 11:03 AM PRIMARY Other fatigue ARTEM FARIA [place] Feb 05, 2024 11:03 AM SECONDARY Anemia, unspecified BIENVENIDO,ARTEM DUDLEY [place] Plan of Treatment: Future Appointments (+ 6 months) and Future Tests (+/- 45 days) The Plan of Treatment section includes future care activities for the patient from all [place] [facility] This section includes future appointments and future orders which are active, pending or scheduled. Future Appointments This section includes appointments that were scheduled to occur 6 months from the date of the Encounter, up to a maximum of 20 appointments. The data comes from all [place] treatment facilities. Appointment Date/Time Appointment Type Appointme nt Facility Name May 16, 2024 10:00 AM [facility] - [facility] May 25, 2024 01:00 PM [facility] - MEDICINE [facility] [place] [facility] May 31, 2024 08:15 AM [facility] Lab Results: +/- 30 days of the encounter This section includes the Chemistry and Hematology Lab Results on record with [place] for the patient. Radiology Reports and Pathology Reports are provided separately, in subsequent sections. Lab Results This section contains the Chemistry/Hematology Results that were resulted 30 days before or 30 daysafter the date of the Encounter. Date/Time Source Result Type Result - Unit Interpretation Reference Range Comment Feb 03, 2024 11:37 AM [facility] VITAMIN B12 Specimen Type: SERUM No comment entered. Ordering Provider: ARTEM FARIA Report Released Date/Time: Feb 03, 2024 11:33 AM Reporting Lab: [facility] docTrackrTHE [facility] [address] [address] Performing Lab: [facility] [place] [place] [facility] [address] [facility] [address] VITAMIN B12 472 pg/mL 200-900 Feb 03, 2024 11:37 AM [facility] [place] [facility] TSH Specimen Type: SERUM No comment entered. Ordering Provider: ARTEM FARIA Report Released Date/Time: Feb 03, 2024 11:33 AM Reporting Lab: [facility] [place] [facility] [address] [facility] [address] Performing Lab: [facility] [place] [facility] [address] [facility] [address] TSH 2.33 u[IU]/mL 0.35-5.00 Feb 03, 2024 11:37 AM [facility] [place] [facility] VITAMIN D (25-[place]) Specimen Type: SERUM No comment entered. Ordering Provider: ARTEM FARIA Report Released Date/Time: Feb 03, 2024 11:33 AM Reporting Lab: [place] [facility] [facility] [address] [facility] [address] Performing Lab: [place] [facility] [place] [facility] [address] [facility] [address] VITAMIN D (25-OH) 30 ng/mL 20-50 Feb 03, 2024 11:37 AM [facility] FOLATE (WROX) Specimen Type: SERUM No comment entered. Ordering Provider: ARTEM FARIA Report Released Date/Time: Feb 03, 2024 11:34 AM Reporting Lab: [place] [facility] [facility] [address] [facility] [address] Performing Lab: [place] [facility] [facility] [address] [facility] [address] FOLATE (WROX) 6.28 ng/mL >5.2 Feb 03, 2024 11:37 AM [facility] FERRITIN Specimen Type: SERUM No comment entered. Ordering Provider: ARTEM FARIA Report Released Date/Time: Feb 03, 2024 11:34 AM Reporting Lab: [place] [facility] [facility] [address] [facility] [address] Performing Lab: [facility] [address] [facility] [address] FERRITIN 110 ng/mL 20-300 Feb 03, 2024 11:37 AM [facility] LIPID PANEL FASTING Specimen Type: SERUM No comment entered. Ordering Provider: ARTEM FARIA Report Released Date/Time: Feb 03, 2024 11:33 AM Reporting Lab: [facility] [address] [facility] [address] Performing Lab: [facility] [address] [facility] [address] CHOLESTEROL 98 mg/dL TRIGLYCERIDE 65 mg/dL 0-150 LDL calculated 41 mg/dL 0-129 CHOL/HDL 2.2 HDL CHOLESTEROL 44 mg/dL 40-60 Feb 03, 2024 11:37 AM [facility] BASIC METABOLIC PANEL (fasting) Specimen Type: SERUM No comment entered. Ordering Provider: ARTEM FARIA Report Released Date/Time: Feb 03, 2024 11:33 AM Reporting Lab: [facility] [address] [facility] [address] Performing Lab: [facility] [address] [facility] [address] UREA NITROGEN 44 mg/dL H 7-25 GLUCOSE 91 mg/dL 65-100 SODIUM 137 mmol/L 135-145 POTASSIUM 4.1 mmol/L 3.5-5.0 CHLORIDE 105 mmol/L 100-110 CO2 24 meq/L 20-30 CREATININE, Serum 1.12 mg/dL 0.50-1.40 eGFR(CKD-EPI 2020) 63 mL/min >60 Feb 03, 2024 11:37 AM [facility] [place] LIVER FUNCTION Specimen Type: SERUM No comment entered. Ordering Provider: RATEM FARIA Report Released Date/Time: Feb 03, 2024 11:33 AM Reporting Lab: [facility] [address] [facility] [address] Performing Lab: [facility] [address] PROTEIN,TOTAL 7.4 g/dL 6.0-8.3 ALBUMIN 4.1 g/dL 3.5-5.0 ALKALINE PHOSPHATASE 64 U/L 40-150 AST 17 U/L 5-34 ALT 7 U/L BILIRUBIN, TOTAL 0.9 mg/dL 0.2-1.2 Feb 03, 2024 11:37 AM [facility] HEMOGLOBIN A1C PANEL Specimen Type: BLOOD Comment: [...] Feb 03, 2024 11:33 AM Reporting Lab: [address] [address] Performing Lab: [facility] [address] HEMOGLOBIN A1C 5.3 4.0-5.6 Feb 03, 2024 11:37 AM [facility] CALCIUM Specimen Type: SERUM No comment entered. Ordering Provider: ARTEM FARIA Report Released Date/Time: Feb 03, 2024 11:33 AM Reporting Lab: [facility] [address] [facility] [address] Performing Lab: [facility]ITAL[facility] [address] CALCIUM 9.2 mg/dL 8.5-10.2 Feb 03, 2024 11:37 AM [facility] IRON & TIBC PANEL Specimen Type: SERUM No comment entered. Ordering Provider: ARTEM FARIA Report Released Date/Time: Feb 03, 2024 11:34 AM Reporting Lab: [facility] [address] [facility] [address] Performing Lab: [facility]ITAL[facility] [address] TIBC 333 ug/dL 204-475 IRON 79 ug/dL 40-160 Transferrin Saturation 23.7 20.0-50.0 Feb 03, 2024 11:37 AM [facility] CBC AND DIFF (AUTO) Specimen Type: BLOOD No comment entered. Ordering Provider: ARTEM FARIA Report Released Date/Time: Feb 03, 2024 11:33 AM Reporting Lab: [facility] [address] [facility] [address] Performing Lab: [facility] [address] [facility] [address] WBC 5.43 10*3/uL 4.50-11.00 RBC 3.83 10*6/uL [...] 10*3/uL 0.00-0.00 Feb 03, 2024 11:28 AM [facility] LYME SEROLOGY PANEL Specimen Type: SERUM Comment: [...] of the panel were validated at the [place] [facility]. Results are considered [...] Feb 03, 2024 11:15 AM Reporting Lab: [facility] [address] [facility] [address] Performing Lab: [facility] [address] [facility] [address] TIER 1 LYME SCREENING EIA Negative Negative LYME AB FINAL INTERPRETATION Negative Negative Social History: Smoking Status (Most current) and Tobacco Use (All prior to encounter date) This section includes the most current, and the historical, smoking and tobacco- related health factors from the [place] facility where the Encounter took place. Current Smoking Status This section includes the most current smoking, or tobacco-related health factor, from the [place] facility where the Encounter took place. Date/Time Current Smoking Status Comment [facility] [place] May 06, 2023 01:41 PM VA-TOBACCO FORMER USER [place] Tobacco Use History This section includes a history of the smoking, or tobacco-related health factors, that were collected on or before the date of the Encounter. The data comes from the [place] facility where the Encounter took place. Date/Time Smoking Status/Tobacco Use Comment F acility May 06, 2023 01:41 PM VA-TOBACCO QUIT 15 YRS OR MORE [place] May 28, 2022 01:30 PM VA-TOBACCO FORMER USER [place] May 28, 2022 01:30 PM VA-TOBACCO QUIT 15 YRS OR MORE [place] Jul 11, 2020 11:00 AM VA-TOBACCO FORMER USER [place] Jul 11, 2020 11:00 AM VA-TOBACCO QUIT 15 YRS OR MORE [place] Mar 29, 2009 02:00 PM QUIT TOBACCO USE 1 -7 YEARS AGO stopped tobacco 5 years ago [place] Mar 09, 2008 09:00 AM QUIT TOBACCO USE 1 -7 YEARS AGO [place] Aug 19, 2007 01:00 PM QUIT TOBACCO USE 1 -7 YEARS AGO [place] Aug 13, 2006 01:30 PM QUIT TOBACCO USE 1 -7 YEARS AGO stopped tobacco 4 years ago [place] Aug 08, 2005 08:30 AM QUIT TOBACCO USE 1 -7 YEARS AGO [place] Mar 06, 2005 01:30 PM QUIT TOBACCO USE IN PAST Y EAR Pt quit 2002 [place] Dec 24, 2004 03:00 PM QUIT TOBACCO USE IN PAST YEAR [place] Jul 30, 2004 02:00 PM HISTORY OF SMOKING Quit 3 years ago [place] Advance Directives: All historical and current Section Date Range: From patient's date of to the date document was created. This section includes ALL of a patient's completed or amended [place] Advance and Rescinded Directives. The entries below indicate that a directive exists for the patient, but an actual copy is not included with this document. The data comes from all [facility]. Date Advance Directives Provider Source Mar 15, 2008 ADVANCE DIRECTIVE GERARDO MARSH [facility] CARSON CABRERA [facility] Encounter Notes: All associated encounter notes This section contains the clinical notes associated to the Encounter. Date/Time Encounter Note(s) Provider Source Feb 03, 2024 08:15 AM PHYSICIAN NOTE: LOCAL TITLE: NOTE STANDARD TITLE: PHYSICIAN NOTE DATE OF NOTE: FEB 03, 2024@08:15 ENTRY DATE: FEB 03, 2024@08:15:33 AUTHOR: KARRI FARIA EXP COSIGNER: URGENCY: STATUS: COMPLETED SUBJECT: 3m CC: 88 year old WHITE MALE SERVICE CONNECTED % - NONE FOUND HPI: Additional concerns of LEFT sided inguinal hernia; seen surgeon and has offered repair under local anesthesia - he'll schedule when ready and declines a truss. Tick bite on back and was seen by nonVA PCP and given doxycycline with gI upset - stopped. Wants to do Lyme test. Continues to be frustrated about his fatigue and recovery - going to [facility] with PT twice a week. No falls. Problem list and medications reviewed. Last Labs: Jun 2023 Last seen 3m ago(edited exerpt): ...ASSESSMENT & PLAN: 88yo CoManaged patient with complicated [...] 6 mos before holidays for supportive care. Active problems - Computerized Problem List is the source for the followin. Normocytic anemia persistent 2. Bladder cancer 3. Wound Right lower leg wound Managed by [facility] wound care 4. Carotid artery stenosis 5. CHF - Congestive Heart Failure ([facility] [id number]) 6. CAD - Coronary Artery Disease ([facility] [id number]) s/p 2 stents 7. COPD - Chronic Obstructive Pulmonary Disease ([facility] [id number]) 8. AF- Atrial Fibrillation ([facility] [id number]) 9. Sleep Apnea ([facility] [id number]) 10. Non-VA providers PCP-Dr.[place] Bridge Saw Operator-Dr.Nirav Partida Urologist-Dr. Markus Rojo--telephone # [phone] 11. Bilateral Cataracts exam 11/06/2009 12. Hypertensive retinopathy right eye 13. Colonic Polyps benign polyps next colo 04/17/2013 14. Hyperplasia of Prostate, unspecified, without Urinary obstruction and other 15. Spinal stenosis of lumbar region surgery l4-l5 decompression 06/01/08 16. 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 Clinically he appears to his baseline and at his best. We'll do a Lyme Test as he didnot tolerate the doxycycline. Do labs and I can call him for results on his ongoing complaints of fatigue. Plan of care discussed with patient who articulates understanding. Chronic issues reviewed briefly; no changes to management unless specified above. RTC as previously arranged TIME ATTESTATION: Time spent directly with the [...] TAKE ONE TABLET BY MOUTH ONCE ACTIVE DAILY FOR PROSTATE 5) OLODATEROL/TIOTROP 2.5MCG/ACTUAT 60D INH INHALE 2 ACTIVE PUFFS (1 DOSE) BY MOUTH ONCE DAILY 6) RIVAROXABAN 15MG TAB TAKE ONE TABLET BY MOUTH ONCE ACTIVE DAILY TO PREVENT BLOOD CLOTS WITH FOOD DOSE REDUCTION:DISCONTINUE 20MG TABS) 7) SACUBITRIL 24MG/VALSARTAN 26MG TAB TAKE 1 TABLET BY ACTIVE (S) MOUTH TWICE DAILY 8) TORSEMIDE 20MG TAB TAKE THREE TABLETS BY MOUTH ONCE ACTIVE DAILY Active Non-VA Medications Status 1) Non-VA [...] found. /josue/ KARRI FARIA MD PHYSICIAN Signed: 02/05/2024 11:03 KARRI FARIA [place]
--- OUTSIDE RECORDS SUMMARY | 2024-06-07 14:18 | XMS_ITS | Encounter Summary ---
Author Name [facility] [place] Organization [place] Address [address] [place] [id number] Care Team Providers Care Animal Behaviorist Name Role Phone KARRI FARIA Primary Care [...] Patient's Relationship to Policy [employer] ([id number]) PRESCRIPT ION [facility] TIES Jan 05, 2009 [id number] NEVERSMICHAELA SEPH PATIENT [facility] MEDICARE SUPPLEMEN TAL MA IND Jun 29, 2016 MEDICAR E SUPPLEM E [id number] NEVERSMICHAELA SEPH PATIENT MEDICARE (WNR) MEDICARE (M) PART A October 28, 1999 PART A [id number] ADAMS SHEEHAN JR PATIENT MEDICARE (WNR) MEDICARE (M) PART B October 28, 1999 PART B [id number] ADAMS SHEEHAN JR PATIENT UMR MEDIGAP PLAN C [facility] TIES Apr 05, 2007 [id number] NEVERS,MICHAELA SEPH PATIENT Selected Encounter This section includes the information on record at [place] for the Encounter. Date/Time Encounter Type Encounter Description Reason Provider Source Feb 05, 2024 11:04 AM Outpatient Encounter TELEPHONE PRIMARY CARE ICD-10-CM R53.83 Other fatigue CARLOS FARIA Padmini Encounter Template Text not used by [place] Assessments - Encounter Diagnoses This section includes the primary and secondary diagnoses documented for the Encounter. Date/Time Primary/Secondary Diagnosis Diagnosis Name Provider Source Feb 05, 2024 11:04 AM PRIMARY Other fatigue HOMERO FARIA [facility] Plan of Treatment: Future Appointments (+ 6 [...] 16, 2024 10:00 AM AM[place]ULATORY - [place]ICINE [place] [facility] [place] [facility] May 25, 2024 01:00 PM AMBULATORY - [place]ICINE [place] [facility] [place] [facility] May 31, 2024 08:15 AM AM[place]ULATORY - [facility] [place] [facility] Lab Results: +/- 30 days of the encounter This section includes the Chemistry and Hematology Lab Results on record with [place] for the patient. Radiology Reports and Pathology Reports are provided separately, in subsequent sections. Lab Results This section contains the Chemistry/Hematology Results that were resulted 30 days before or 30 daysafter the date of the Encounter. Date/Time Source Result Type Result - Unit Interpretation Reference Range Comment Feb 03, 2024 11:37 AM [facility] [place] [facility] TSH Specimen Type: SERUM No comment entered. Ordering Provider: ARTEM FARIA Report Released Date/Time: Feb 03, 2024 11:33 AM Reporting Lab: [facility] [address] [facility] [address] Performing Lab: [facility] [address] [facility] [facility] [address] TSH 2.33 u[IU]/mL 0.35-5.00 Feb 03, 2024 11:37 AM [facility] VITAMIN D (25-OH) Specimen Type: SERUM No comment entered. Ordering Provider: ARTEM FARIA Report Released Date/Time: Feb 03, 2024 11:33 AM Reporting Lab: [facility] [place] [facility] [address] [facility] [address] Performing Lab: [place] [facility] [place] [facility] [address] [facility] [address] VITAMIN D (25-OH) 30 ng/mL 20-50 Feb 03, 2024 11:37 AM [facility] VITAMIN B12 Specimen Type: SERUM No comment entered. Ordering Provider: ARTEM FARIA Report Released Date/Time: Feb 03, 2024 11:33 AM Reporting Lab: [facility] [address] [facility] [address] Performing Lab: [facility] [address] [facility] [address] VITAMIN B12 472 pg/mL 200-900 Feb 03, 2024 11:37 AM [facility] FOLATE (WROX) Specimen Type: SERUM No comment entered. Ordering Provider: ARTEM FARIA Report Released Date/Time: Feb 03, 2024 11:34 AM Reporting Lab: [facility] [place] [facility] [address] [facility] [address] Performing Lab: [place] [facility] [place] [facility] [address] [facility] [address] FOLATE (WROX) 6.28 ng/mL >5.2 Feb 03, 2024 11:37 AM [facility] FERRITIN Specimen Type: SERUM No comment entered. Ordering Provider: ARTEM FARIA Report Released Date/Time: Feb 03, 2024 11:34 AM Reporting Lab: [facility] [place] [facility] [address] [facility] [address] Performing Lab: [place] [facility] [address] [facility] [address] FERRITIN 110 ng/mL 20-300 Feb 03, 2024 11:37 AM [facility] LIPID PANEL FASTING Specimen Type: SERUM No comment entered. Ordering Provider: ARTEM FARIA Report Released Date/Time: Feb 03, 2024 11:33 AM Reporting Lab: [facility] [address] [facility] [address] Performing Lab: [facility] [address] [facility] [address] CHOLESTEROL 98 mg/dL TRIGLYCERIDE 65 mg/dL 0-150 LDL calculated 41 mg/dL 0-129 CHOL/HDL 2.2 HDL CHOLESTEROL 44 mg/dL 40-60 Feb 03, 2024 11:37 AM [facility] BASIC METABOLIC PANEL (fasting) Specimen Type: SERUM No comment entered. Ordering Provider: ARTEM FARIA Report Released Date/Time: Feb 03, 2024 11:33 AM Reporting Lab: [facility] [address] [facility] [address] Performing Lab: [facility] [address] [facility] [address] UREA NITROGEN 44 mg/dL H 7-25 GLUCOSE 91 mg/dL 65-100 SODIUM 137 mmol/L 135-145 POTASSIUM 4.1 mmol/L 3.5-5.0 CHLORIDE 105 mmol/L 100-110 CO2 24 meq/L 20-30 CREATININE, Serum 1.12 mg/dL 0.50-1.40 eGFR(CKD-EPI 2020) 63 mL/min >60 Feb 03, 2024 11:37 AM [facility] LIVER FUNCTION Specimen Type: SERUM No comment entered. Ordering Provider: ARTEM FARIA Report Released Date/Time: Feb 03, 2024 11:33 AM Reporting Lab: [facility] [address] [facility] [address] Performing Lab: [facility] [address] [facility] [address] PROTEIN,TOTAL 7.4 g/dL 6.0-8.3 ALBUMIN 4.1 g/dL 3.5-5.0 ALKALINE PHOSPHATASE 64 U/L 40-150 AST 17 U/L 5-34 ALT 7 U/L BILIRUBIN, TOTAL 0.9 mg/dL 0.2-1.2 Feb 03, 2024 11:37 AM [facility] HEMOGLOBIN A1C PANEL Specimen Type: [...] Feb 03, 2024 11:33 AM Reporting Lab: [address] [address] Performing Lab: [address] [address] HEMOGLOBIN A1C 5.3 4.0-5.6 Feb 03, 2024 11:37 AM [facility] CALCIUM Specimen Type: SERUM No comment entered. Ordering Provider: ARTEM FARIA Report Released Date/Time: Feb 03, 2024 11:33 AM Reporting Lab: [facility] [address] [facility] [address] Performing Lab: [address] [address] CALCIUM 9.2 mg/dL 8.5-10.2 Feb 03, 2024 11:37 AM [facility] IRON & TIBC PANEL Specimen Type: SERUM No comment entered. Ordering Provider: ARTEM FARIA Report Released Date/Time: Feb 03, 2024 11:34 AM Reporting Lab: [address] [address] Performing Lab: [address] [address] TIBC 333 ug/dL 204-475 IRON 79 ug/dL 40-160 Transferrin Saturation 23.7 20.0-50.0 Feb 03, 2024 11:37 AM [facility] CBC AND DIFF (AUTO) Specimen Type: BLOOD No comment entered. Ordering Provider: ARTEM FARIA Report Released Date/Time: Feb 03, 2024 11:33 AM Reporting Lab: [facility] [address] [facility] [address] Performing Lab: [facility] [address] [facility] [address] WBC 5.43 10*3/uL 4.50-11.00 RBC 3.83 10*6/uL [...] 10*3/uL 0.00-0.00 Feb 03, 2024 11:28 AM [facility] LYME SEROLOGY PANEL Specimen Type: [...] of the panel were validated at the [place] [facility]. Results are considered [...] Feb 03, 2024 11:15 AM Reporting Lab: [facility] [address] [facility] [address] Performing Lab: [facility] [address] [facility] [address] TIER 1 LYME SCREENING EIA Negative Negative LYME AB FINAL INTERPRETATION Negative Negative Social History: Smoking Status (Most current) and Tobacco Use (All prior to encounter date) This section includes the most current, and the historical, smoking and tobacco- related health factors from the [place] facility where the Encounter took place. Current Smoking Status This section includes the most current smoking, or tobacco-related health factor, from the [place] facility where the Encounter took place. Date/Time Current Smoking Status Allie figueroa May 06, 2023 01:41 PM [place]-TOBACCO FORMER USER [place] Tobacco Use History This section includes a history of the smoking, or tobacco-related health factors, that were collected on or before the date of the Encounter. The data comes from the [place] facility where the Encounter took place. Date/Time Smoking Status/Tobacco Use Comment F acility May 06, 2023 01:41 PM VA-TOBACCO QUIT 15 YRS OR MORE [place] May 28, 2022 01:30 PM VA-TOBACCO FORMER USER [place] May 28, 2022 01:30 PM VA-TOBACCO QUIT 15 YRS OR MORE [place] Jul 11, 2020 11:00 AM VA-TOBACCO FORMER USER [place] Jul 11, 2020 11:00 AM VA-TOBACCO QUIT 15 YRS OR MORE [place] Mar 29, 2009 02:00 PM QUIT TOBACCO USE 1 -7 YEARS AGO stopped tobacco 5 years ago [place] Mar 09, 2008 09:00 AM QUIT TOBACCO USE 1 -7 YEARS AGO [place] Aug 19, 2007 01:00 PM QUIT TOBACCO USE 1 -7 YEARS AGO [place] Aug 13, 2006 01:30 PM QUIT TOBACCO USE 1 -7 YEARS AGO stopped tobacco 4 years ago [place] Aug 08, 2005 08:30 AM QUIT TOBACCO USE 1 -7 YEARS AGO [place] Mar 06, 2005 01:30 PM QUIT TOBACCO USE IN PAST Y EAR Pt quit Jul. 2002 [place] Dec 24, 2004 03:00 PM QUIT TOBACCO USE IN PAST YEAR [place] Jul 30, 2004 02:00 PM HISTORY OF SMOKING Quit 3 years ago [place] Advance Directives: All historical and current Section Date Range: From patient's date of to the date document was created. This section includes ALL of a patient's completed or amended [place] Advance and Rescinded Directives. The entries below indicate that a directive exists for the patient, but an actual copy is not included with this document. The data comes from all [facility]. Date Advance Directives Provider Source Mar 15, 2008 ADVANCE DIRECTIVE GERARDO MARSH [facility] Encounter Notes: All associated encounter notes This section contains the clinical notes associated to the Encounter. Date/Time Encounter Note(s) Provider Source Feb 05, 2024 11:04 AM PHYSICIAN TELEPHON E ENCOUNTER NOTE: LOCAL TITLE: TELEPHONE NOTE/MD STANDARD TITLE: PHYSICIAN TELEPHONE ENCOUNTER NOTE DATE OF NOTE: FEB 05, 2024@11:04 ENTRY DATE: FEB 05, 2024@11:04:18 AUTHOR: KARRI FARIA EXP COSIGNER: URGENCY: STATUS: COMPLETED Discussed recent test results. Anemia at baseline. Anemia CBC TREND Collection DT Spec WBC RBC HGB HCT MCV MCH PLT 02/03/2024 11:37 BLOOD 5.43 3.83 L 12.1 L 36.7 L 95.8 31.6 212 07/08/2023 09:45 BLOOD 4.67 3.90 L 12.1 L 38.0 L 97.4 31.0 223 05/21/2022 10:08 BLOOD 5.23 3.82 L 11.7 L 37.2 L 97.4 30.6 216 03/06/2022 14:26 BLOOD 5.72 3.37 L 11.0 L 34.6 L 102.7 H 32.6 262 08/08/2021 13:16 BLOOD 5.04 4.27 12.6 L 41.1 96.3 29.5 222 Reassured patient of findings. No changes in management. /josue/ KARRI FARIA MD PHYSICIAN Signed: 02/05/2024 11:05 KARRI FARIA [place]
--- OUTSIDE RECORDS SUMMARY | 2024-06-07 14:19 | XMS_ITS ---
Author Name [facility] [place] Organization [place] Address [address] [place] [address] Care Team Providers Care Mold Construction Supervisor Name Role Phone KARRI FARIA Primary Care [...] Patient's Relationship to Policy [employer] ([id number]) PRESCRIPT ION [facility] TIES Jan 05, 2009 [id number] NEVERSMICHAELA PATIENT [facility] MEDICARE SUPPLEMEN TAL MA IND Jun 29, 2016 MEDICAR E SUPPLEM E [id number] NEVERSMICHAELA PATIENT MEDICARE (WNR) MEDICARE (M) PART A October 28, 1999 PART A [id number] ADAMS SHEEHAN JR PATIENT MEDICARE (WNR) MEDICARE (M) PART B October 28, 1999 PART B [id number] ADAMS SHEEHAN JR PATIENT UMR MEDIGAP PLAN C [place] [facility] TIES Apr 05, 2007 [id number] NEVERSMICHAELA PATIENT Selected Encounter This section includes the information on record at [place] for the Encounter. Date/Time Encounter Type Encounter Description Reason Pro vider Source Apr 29, 2024 03:01 PM Outpatient Encounter ADMIN PAT ACTIVTIES (MASNONCT) IHE Encounter Template Text not used by [place] Plan of Treatment: Future Appointments (+ 6 months) and Future Tests (+/- 45 days) The Plan of Treatment section includes future care activities for the patient from all [place] treatmentfacilities. This section includes future appointments and future orders which are active, pending or scheduled. Future Appointments This section includes appointments that were scheduled to occur 6 months from the date of the Encounter, up to a maximum of 20 appointments. The data comes from all [place] treatment facilities. Appointment Date/Time Appointment Type Appointme nt Facility Name May 16, 2024 10:00 AM AMBULATORY - MEDICINE [facility] May 25, 2024 01:00 PM AMBULATORY - MEDICINE [facility] May 31, 2024 08:15 AM AM[facility] Advance Directives: All historical and current Section Date Range: From patient's date of to the date document was created. This section includes ALL of a patient's completed or amended [place] Advance and Rescinded Directives. The entries below indicate that a directive exists for the patient, but an actual copy is not included with this document. The data comes from all [place] facilities. Date Advance Directives Provider Source Mar 15, 2008 ADVANCE DIRECTIVE GERARDO MARSH [facility] Encounter Notes: All associated encounter notes This section contains the clinical notes associated to the Encounter. Date/Time Encounter Note(s) Provider Source Apr 29, 2024 03:10 PM ADDENDUM: LOCAL TITLE: Addendum STANDARD TITLE: ADDENDUM DATE OF NOTE: APR 29, 2024@15:10:41 ENTRY DATE: APR 29, 2024@15:10:42 AUTHOR: JEN DAVILA EXP COSIGNER: URGENCY: STATUS: COMPLETED Please book pt. a nursing appt. for his COVID vaccine in my next available slot. /josue/ LEN NEGRETE,RN-BC REGISTERED NURSE (RN) Signed: 04/29/2024 15:11 Receipt Acknowledged By: 04/29/2024 15:27 /josue/ GRETA CHUN === --- Original Document --- 04/29/24 CCC: SCHEDULING ADMINISTRATION: PLEASE CALL PT AT [phone] IN REF TO GETTING A COVID SHOT /josue/ CECI EVANS Medical [employer] Worker Signed: 04/29/2024 15:03 Receipt Acknowledged By: * AWAITING SIGNATURE * RUBY MERCHANT 04/29/2024 15:10 /josue/ LEN NEGRETE,RN-BC REGISTERED NURSE (RN) 04/29/2024 ADDENDUM STATUS: COMPLETED Property Claims Adjuster scheduled nursing appt on 05/16/24 @ 10:00 am f2f for covid vaccine. /josue/ GRETA CHUN Signed: 04/29/2024 15:26 JEN DAVILA [place] [facility] [place] [facility] Apr 29, 2024 03:01 PM ADMINISTRATIVE NOT E: LOCAL TITLE: CCC: SCHEDULING ADMINISTRATION STANDARD TITLE: ADMINISTRATIVE NOTE DATE OF NOTE: APR 29, 2024@15:01 ENTRY DATE: APR 29, 2024@15:01:19 AUTHOR: CECI EVANS EXP COSIGNER: URGENCY: STATUS: COMPLETED CCC: SCHEDULING ADMINISTRATION Has ADDENDA PLEASE CALL PT AT [phone] IN REF TO GETTING A COVID SHOT /josue/ CECI EVANS Medical [employer] Refrigeration Worker Signed: 04/29/2024 15:03 Receipt Acknowledged By: 04/29/2024 16:27 /josue/ RUBY MERCHANT LPN LPN 04/29/2024 15:10 /josue/ LEN NEGRETE,RN-BC REGISTERED NURSE (RN) 04/29/2024 ADDENDUM STATUS: COMPLETED Please book pt. a nursing appt. for his COVID vaccine in my next available slot. /josue/ NINA NEGRETEN,RN-BC REGISTERED NURSE (RN) Signed: 04/29/2024 15:11 Receipt Acknowledged By: 04/29/2024 15:27 /josue/ GRETA CHUN 04/29/2024 ADDENDUM STATUS: COMPLETED Property Claims Adjuster scheduled nursing appt on 05/16/24 @ 10:00 am f2f for covid vaccine. /josue/ GRETA CHUN Signed: 04/29/2024 15:26 CECI EVANS [facility]
--- OUTSIDE RECORDS SUMMARY | 2024-06-07 14:19 | XMS_ITS | Encounter Summary ---
Author Name [facility] [place] [facility] [place] [facility] [place] Address [address] [place] [id number] Care Team Providers Care Edge Burnisher Name Role Phone KARRI FARIA Primary Care [...] Patient's Relationship to Policy [employer] ([id number]) PRESCRIPT ION [place] RAM[place] TIES Jan 05, 2009 [id number] [phone] NEVERSMICHAELA SEPH PATIENT [facility] MEDICARE [facility] IND Jun 29, 2016 MEDICAR E SUPPLEM E [id number] NEVERSMICHAELA BROCK PATIENT MEDICARE (WN) MEDICARE (M) PART B October 28, 1999 PART B [id number] ADAMS SHEEHAN JR PATIENT MEDICARE (WNR) MEDICARE (M) PART A October 28, 1999 PART A [id number] ADAMS SHEEHAN JR PATIENT UMR MEDIGAP PLAN C [place] TIES Apr 05, 2007 [id number] NEVERS,MICHAELA SEPH PATIENT Selected Encounter This section includes the information on record at [place] for the Encounter. Date/Time Encounter Type Encounter Description Reason Provider Source May 16, 2024 10:00 AM OFF/OP EST OCTOBER X REQ PHY/QHP PRIMARY CARE/MEDICINE ICD-10-CM Z23 Encounter for immunization CHRYSTAL DAVILA [facility] Encounter Template Text not used by [place] Assessments - Encounter Diagnoses This section includes the primary and secondary diagnoses documented for the Encounter. Date/Time Primary/Secondary Diagnosis Diagnosis Name Provider Source May 16, 2024 10:32 AM PRIMARY Encounter for immunization JEN DAVILA [facility] Plan of Treatment: Future Appointments (+ 6 months) and Future Tests (+/- 45 days) The Plan of Treatment section includes future care activities for the patient from all [place] treatmentfacilities. This section includes future appointments and future orders which are active, pending or scheduled. Future Appointments This section includes appointments that were scheduled to occur 6 months from the date of the Encounter, up to a maximum of 20 appointments. The data comes from all [place] treatment facilities. Appointment Date/Time Appointment Type Appointme nt Facility Name May 25, 2024 01:00 PM AMBULATORY - MEDICINE [place] [facility] May 31, 2024 08:15 AM [facility] Immunizations: All administered on the encounter date This section contains immunizations associated to the Encounter. Immunization Series Date Issued Reaction Comments COVID-19 (MODERNA), MRNA, LN P-S, PF, 50 MCG/0.5 ML (AGES 12+ YEARS) May 16, 2024 PNEUMOCOCCAL CONJUGATE PCV20 , POLYSACCHARIDE [id number] CONJUGATE, ADJUVANT, PF May 16, 2024 Social History: Smoking Status (Most current) and Tobacco Use (All prior to encounter date) This section includes the most current, and the historical, smoking and tobacco- related health factors from the [place] facility where the Encounter took place. Current Smoking Status This section includes the most current smoking, or tobacco-related health factor, from the [place] facility where the Encounter took place. Date/Time Current Smoking Status Comment Marilyn figueroa May 16, 2024 10:00 AM PA-TOBACCO FORMER USER [facility] Tobacco Use History This section includes a history of the smoking, or tobacco-related health factors, that were collected on or before the date of the Encounter. The data comes from the [place] facility where the Encounter took place. Date/Time Smoking Status/Tobacco Use Comment F acility May 16, 2024 10:00 AM VA-TOBACCO QUIT 15 YRS OR MORE [facility] May 06, 2023 01:41 PM VA-TOBACCO FORMER USER [facility] May 06, 2023 01:41 PM VA-TOBACCO QUIT 15 YRS OR MORE [facility] May 28, 2022 01:30 PM VA-TOBACCO FORMER USER [facility] May 28, 2022 01:30 PM VA-TOBACCO QUIT 15 YRS OR MORE [facility] Jul 11, 2020 11:00 AM VA-TOBACCO FORMER USER [facility] Jul 11, 2020 11:00 AM VA-TOBACCO QUIT 15 YRS OR MORE [facility] Mar 29, 2009 02:00 PM QUIT TOBACCO USE 1 -7 YEARS AGO stopped tobacco 5 years ago [facility] Mar 09, 2008 09:00 AM QUIT TOBACCO USE 1 -7 YEARS AGO [facility] Aug 19, 2007 01:00 PM QUIT TOBACCO USE 1 -7 YEARS AGO [facility] Aug 13, 2006 01:30 PM QUIT TOBACCO USE 1 -7 YEARS AGO stopped tobacco 4 years ago [facility] Aug 08, 2005 08:30 AM QUIT TOBACCO USE 1 -7 YEARS AGO [facility] Mar 06, 2005 01:30 PM QUIT TOBACCO USE IN PAST Y EAR Pt quit 2002 [facility] Dec 24, 2004 03:00 PM QUIT TOBACCO USE IN PAST YEAR [facility] Jul 30, 2004 02:00 PM HISTORY OF SMOKING Quit 3 years ago [facility] Advance Directives: All historical and current Section Date Range: From patient's date of to the date document was created. This section includes ALL of a patient's completed or amended [place] Advance and Rescinded Directives. The entries below indicate that a directive exists for the patient, but an actual copy is not included with this document. The data comes from all [facility]. Date Advance Directives Provider Source Mar 15, 2008 ADVANCE DIRECTIVE GERARDO MARSH [facility] CABRERA [facility] Encounter Notes: All associated encounter notes This section contains the clinical notes associated to the Encounter. Date/Time Encounter Note(s) Provider Source May 16, 2024 10:05 AM NURSING NOTE: LOCAL TITLE: PRIMARY CARE NURSE NOTE STANDARD TITLE: NURSING NOTE DATE OF NOTE: MAY 16, 2024@10:05 ENTRY DATE: MAY 16, 2024@10:06:12 AUTHOR: GIOVANNI,JEN H EXP COSIGNER: URGENCY: STATUS: COMPLETED F: ADAMS SHEEHAN is a 88 yo male presenting to the clinic for a scheduled injection of COVID-19 and PNEUMO 20 per KARRI FARIA. Dx: Immunzation D/A: COVID-19 Immunization: Moderna Monovalent (Spikevax) Administered: COVID-19 (MODERNA), MRNA, LNP-S, PF, 50 MCG/0.5 ML (AGES 12+ YEARS) Date Administered: May 16, 2024 10:00 Series: [employer] Ware[employer] Helper: [employer]. Lot: [id number] Exp Date: November 18, 2024 NDC: [id number] Admin Route/Site: INTRAMUSCULAR/RIGHT DELTOID Dosage: 0.5mL Vaccine Information Statement(s): COVID-19 MRNA VACCINE (12+ YRS) VACCINE VIS Apr 14, 2024 (EMIRATI) Order By: Policy Administered By: Jen Davila Vaccine administered without complications. Pneumococcal Conjugate Vaccine (PCV15/PCV20): PCV20 (Prevnar 20) Administered: PNEUMOCOCCAL CONJUGATE PCV20, POLYSACCHARIDE [id number] CONJUGATE, ADJUVANT, PF Date Administered: May 16, 2024 10:00 Plumbing Warehouse Helper: Tucker Blair Lot: [id number] Exp Date: Aug 26, 2024 NDC: [id number] Admin Route/Site: INTRAMUSCULAR/LEFT DELTOID Dosage: 0.5mL Vaccine Information Statement(s): PNEUMOCOCCAL CONJUGATE ([id number]) VIS November 07, 2022 (EMIRATI) Order By: Policy Administered By: Jen Davila Vaccine Information Sheet (VIS) was given to the patient/caregiver, education regarding adverse reactions was discussed, as well as barriers to learning, if any, were acknowledged. PATIENT EDUCATION - SIDE EFFECTS VACCINATION Advised pt of the following POSSIBLE side effects and to call us if any of these symptoms are severe or do not go away: pain at injection site Advised of SERIOUS side effects and to call us immediately or get emergency medical treatment if you experience: wheezing or difficulty breathing shortness of breath cough chest tightness flushing hives swelling of the face, mouth, and tongue difficulty swallowing fainting or dizziness RTC in 0 weeks for next injection. Upcoming Appointments: 05/25/2024 13:00 CWM/SO/PACT 9 No barriers; Patient understands and agrees to current treatment plan. If pt has any questions, concerns, or changes in current health status he will call or come in to the [facility]. 15 minutes spent in patient care and education CLINICAL REMINDERS Suicide Screen: C-SSRS Screening [place] Suicide Severity Rating Scale (C-SSRS) screener 1. Over the past month, have you wished you were or wished you could go to sleep and not wake up? No 2. Over the past month, have you had any actual thoughts of killing yourself? No 3. Over the past month, have you been thinking about how you mightdo this? Response not required due to responses to other questions. 4. Over the past month, have you had these thoughts and had some intention of acting on them? Response not required due to responses to other questions. 5. Over the past month, have you started to work out or worked out the details of how to kill yourself? Response not required due to responses to other questions. 6. If yes, at any time in the past month did you intend to carry out this plan? Response not required due to responses to other questions. 7. In your lifetime, have you ever done anything, started to do anything, or prepared to do anything to end your life (for example, collected pills, obtained a gun, gave away valuables, went to the roof but didn't jump)? No 8. If YES, was this within the past 3 months? Response not required due to responses to other questions. Advance Directive Screen MH AD: Patient has an Advance Directive on file at this [facility]. No updates are needed at this time. The patient received education about Advance Directives and written notification of his/her rights. Depression Screening: Perform PHQ-2 A PHQ-2 screen was performed. The score was 0 which is a negative screen for depression. Over the past two weeks, how often have you been bothered by the following problems? 1. Little interest or pleasure in doing things Not at all 2. Feeling down, depressed, or hopeless Not at all Falls & Incontinence Screen: Falls Screen: During the past 12 months, did the patient report any falls? 4. No falls within the past year. Incontinence Screen: During the past 12 months, has the patient has any characteristics of incontinence (ability, voiding, leakage, etc.)? No incontinence. Tobacco Use Screening: The patient is a former tobacco user. The patient quit fifteen or more years ago. Influenza Immunization: The patient has received the seasonal influenza vaccine for the current season at another location. Documented: INFLUENZA, UNSPECIFIED FORMULATION Historical Date Administered: May 08, 2024 Outside Location: Outside Healthcare Provider Information Source: SOURCE UNSPECIFIED Home Telehealth (CCHT) Referral: Patient not a candidate for CCHT Program at this time. Alcohol Use Screen (AUDIT-C): Alcohol Screen: SCREEN FOR ALCOHOL (AUDIT-C) An alcohol screening test (AUDIT-C) was negative (score=0). 1. How often did you have a drink containing alcohol in the past year? Consider a drink to be a 12 ounce can or bottle of regular beer, 8 ounces of malt liquor, a 5 ounce glass of table wine, or a 1.5 ounce shot of liquor (like scotch, gin, or vodka). Never 2. How many drinks containing alcohol did you have on a typical day when you were drinking in the past year? Response not required due to responses to other questions. 3. How often did you have six or more drinks on one occasion in the past year? Response not required due to responses to other questions. Sexual Orientation: The patient thinks of their sexual orientation as: Straight or Heterosexual MSA: Please request immunization records from Dr. Isaac Salazar office located in [place] and last eye exam from [facility] office in [place] /josue/ LEN NEGRETE,RN-BC REGISTERED NURSE (RN) Signed: 05/16/2024 10:32 JEN DAVILA
--- OUTSIDE RECORDS SUMMARY | 2024-06-07 14:19 | XMS_ITS | Encounter Summary ---
Author Name [facility] [place] [place] Organization [facility] [place] Address [address] [place] [id number] Care Team Providers Care Hat Mender Name Role Phone KARRI FARIA Primary Care [...] Patient's Relationship to Policy [employer] ([id number]) PRESCRIPT ION [place] RAMESH TIES Jan 05, 2009 [id number] [phone] NEVERSMICHAELA PATIENT [facility] MEDICARE SUPPLEMEN TAL [place] IND Jun 29, 2016 MEDICAR E SUPPLEM E [id number] NEVERSMICHAELA VINOD PATIENT MEDICARE (WN) MEDICARE (M) PART A October 28, 1999 PART A [id number] [phone] SISSY LAYADAMS PATIENT MEDICARE (WN) MEDICARE (M) PART B October 28, 1999 PART B [id number] [phone] ADAMS SHEEHAN JR PATIENT UMR MEDIGAP PLAN C [place] RAMESHI TIES Apr 05, 2007 [id number] [phone] NEVERSMICHAELA SEPH PATIENT Selected Encounter This section includes the information on record at [place] for the Encounter. Date/Time Encounter Type Encounter Description Reason Pro vider Source May 16, 2024 04:05 PM Outpatient Encounter PRIMARY CARE/MEDICINE IHE Encounter [...] 25, 2024 01:00 PM AMBULATORY - MEDICINE [facility] May 31, 2024 08:15 AM [facility] [place] [facility] Advance Directives: All historical and current [...] Mar 15, 2008 [facility] Encounter Notes: All associated encounter notes This section contains the clinical notes associated to the Encounter. Date/Time Encounter Note(s) Provider Source May 16, 2024 04:05 PM PRIMARY CARE TELEP [facility]I ENCOUNTER NOTE: LOCAL TITLE: TELEPHONE NOTE/PRIMARY CARE STANDARD TITLE: PRIMARY CARE TELEPHONE ENCOUNTER NOTE DATE OF NOTE: MAY 16, 2024@16:05 ENTRY DATE: MAY 16, 2024@16:05:12 AUTHOR: GRETA GRAY EXP COSIGNER: URGENCY: STATUS: COMPLETED Inspection Engineer called to [ ] Schedule primary care appt [ ] Reschedule primary care appt. [X} Remind of upcoming primary care appt. SPOKE WITH: [ ] Fasting blood work needed, and vet reminded. [ ] Non fasting blood work needed, and vet reminded. [X} No labs needed. [ ] UNABLE TO REACH : [ ] Left voicemail. [ ] Unable to leave voicemail. [ ] No phone number available/no working phone number [ ] Mailed Letter Upcoming appt on 05/25/24 @ 01:00 pm. /joseu/ GRETA GRAY [facility] Signed: 05/16/2024 16:05 GRETA GRAY [place]
--- OUTSIDE RECORDS SUMMARY | 2024-06-07 14:19 | XMS_ITS ---
Author Name Department of Vetera Affairs ([place]) Organization [facility] of [facility] [place] Address [address] [place] [id number] Care Team Providers Care Tank Bottom Assembler Name Role Phone KARRI FARIA Primary [...] Patient's Relationship to Policy [employer] ([id number]) PRESCRIPT ION [place] RAMESH TIES Jan 05, 2009 [id number] NEVERSMICHAELA PATIENT [facility] MEDICARE SUPPLEMEN TAL [place] IND Jun 29, 2016 MEDICAR E SUPPLEM E [id number] NEVERSMICHAELA PATIENT MEDICARE (WNR) MEDICARE (M) PART A October 28, 1999 PART A [id number] ADAMS SHEEHAN JR PATIENT MEDICARE (WNR) MEDICARE (M) PART B October 28, 1999 PART B [id number] ADAMS SHEEHAN JR PATIENT UMR MEDIGAP PLAN C [place] KEILY CHANDLERI TIES Apr 05, 2007 [id number] MICHAELA SHEEHAN PATIENT Selected Encounter This section includes the information on record at [place] for the Encounter. Date/Time Encounter Type Encounter Description Reason Pro vider Source Feb 18, 2024 01:33 PM Outpatient Encounter ADMIN PAT ACTIVTIES (MASNONCT) IHE Encounter Template Text not used by [place] Plan of Treatment: Future Appointments (+ 6 months) and Future Tests (+/- 45 days) The Plan of Treatment section includes future care activities for the patient from all [place] treatmentfacilities. This section includes future appointments and future orders which are active, pending or scheduled. Future Appointments This section includes appointments that were scheduled to occur 6 months from the date of the Encounter, up to a maximum of 20 appointments. The data comes from all [place] treatment facilities. Appointment Date/Time Appointment Type Appointme nt Facility Name May 16, 2024 10:00 AM AMBULATORY - MEDICINE [facility] May 25, 2024 01:00 PM AMBULAT[facility] - [facility] May 31, 2024 08:15 AM AMBULATORY - [facility] Lab Results: +/- 30 days of the encounter This section includes the Chemistry and Hematology Lab Results on record with [place] for the patient. Radiology Reports and Pathology Reports are provided separately, in subsequent sections. Lab Results This section contains the Chemistry/Hematology Results that were resulted 30 days before or 30 daysafter the date of the Encounter. Date/Time Source Result Type Result - Unit Interpretation Reference Range Comment Feb 03, 2024 11:37 AM [facility] VITAMIN B12 Specimen Type: SERUM No comment entered. Ordering Provider: ARTEM FARIA Report Released Date/Time: Feb 03, 2024 11:33 AM Reporting [facility]: [facility] [address] [facility] [address] Performing Lab: [facility] [address] [facility] [address] VITAMIN B12 472 pg/mL 200-900 Feb 03, 2024 11:37 AM [facility] TSH Specimen Type: SERUM No comment entered. Ordering Provider: ARTEM FARIA Report Released Date/Time: Feb 03, 2024 11:33 AM Reporting Lab: [facility] [place] [facility] [address] [facility] [address] Performing Lab: [facility] [place] [facility] [address] [facility] [address] TSH 2.33 u[IU]/mL 0.35-5.00 Feb 03, 2024 11:37 AM [facility] [place] [facility] VITAMIN D (25-OH) Specimen Type: SERUM No comment entered. Ordering Provider: ARTEM FARIA Report Released Date/Time: Feb 03, 2024 11:33 AM Reporting Lab: [place] [facility] [place] [facility] [address] [facility] [address] Performing Lab: [place] [facility] [place] [facility] [address] [facility] [address] VITAMIN D (25-OH) 30 ng/mL 20-50 Feb 03, 2024 11:37 AM [facility] FOLATE (WROX) Specimen Type: SERUM No comment entered. Ordering Provider: ARTEM FARIA Report Released Date/Time: Feb 03, 2024 11:34 AM Reporting Lab: [place] [facility] [place] [facility] [address] [facility] [address] Performing Lab: [place] [facility] [place] [facility] [address] [facility] [address] FOLATE (WROX) 6.28 ng/mL >5.2 Feb 03, 2024 11:37 AM [facility] FERRITIN Specimen Type: SERUM No comment entered. Ordering Provider: ARTEM FARIA Report Released Date/Time: Feb 03, 2024 11:34 AM Reporting Lab: [place] [facility] [place] [facility] [address] [facility] [address] Performing Lab: [place] [facility] [place] [facility] [address] [facility] [address] FERRITIN 110 ng/mL 20-300 Feb 03, 2024 11:37 AM [facility] BASIC METABOLIC PANEL (fasting) Specimen Type: SERUM No comment entered. Ordering Provider: ARTEM FARIA Report Released Date/Time: Feb 03, 2024 11:33 AM Reporting Lab: [facility] [address] [facility] [address] Performing Lab: [facility] [address] [facility] [address] UREA NITROGEN 44 mg/dL H 7-25 GLUCOSE 91 mg/dL 65-100 SODIUM 137 mmol/L 135-145 POTASSIUM 4.1 mmol/L 3.5-5.0 CHLORIDE 105 mmol/L 100-110 CO2 24 meq/L 20-30 CREATININE, Serum 1.12 mg/dL 0.50-1.40 eGFR(CKD-EPI 2020) 63 mL/min >60 Feb 03, 2024 11:37 AM [facility] LIPID PANEL FASTING Specimen Type: SERUM No comment entered. Ordering Provider: ARTEM FARIA Report Released Date/Time: Feb 03, 2024 11:33 AM Reporting Lab: [facility] [address] [facility] [address] Performing Lab: [facility] [address] [facility] [address] CHOLESTEROL 98 mg/dL TRIGLYCERIDE 65 mg/dL 0-150 LDL calculated 41 mg/dL 0-129 CHOL/HDL 2.2 HDL CHOLESTEROL 44 mg/dL 40-60 Feb 03, 2024 11:37 AM [facility] LIVER FUNCTION Specimen Type: SERUM No comment entered. Ordering Provider: ARTEM FARIA Report Released Date/Time: Feb 03, 2024 11:33 AM Reporting Lab: [facility] [address] [facility] [address] Performing Lab: [facility] [address] [facility] [address] PROTEIN,TOTAL 7.4 g/dL 6.0-8.3 ALBUMIN 4.1 g/dL 3.5-5.0 ALKALINE PHOSPHATASE 64 U/L 40-150 AST 17 U/L 5-34 ALT 7 U/L BILIRUBIN, TOTAL 0.9 mg/dL 0.2-1.2 Feb 03, 2024 11:37 AM [facility] CBC AND DIFF (AUTO) Specimen Type: BLOOD No comment entered. Ordering Provider: ARTEM FARIA Report Released Date/Time: Feb 03, 2024 11:33 AM Reporting Lab: [facility] [address] [facility] [address] Performing Lab: [facility] [address] [facility] [address] WBC 5.43 10*3/uL 4.50-11.00 RBC 3.83 10*6/uL [...] ABS 0.00 10*3/uL 0.00-0.00 Feb 03, 2024 11:37 AM [facility] HEMOGLOBIN A1C PANEL Specimen Type: BLOOD [...] Feb 03, 2024 11:33 AM Reporting Lab: [facility] [address] [facility] [address] Performing Lab: [address] [address] HEMOGLOBIN A1C 5.3 4.0-5.6 Feb 03, 2024 11:37 AM [facility] CALCIUM Specimen Type: SERUM No comment entered. Ordering Provider: ARTEM FARIA Report Released Date/Time: Feb 03, 2024 11:33 AM Reporting Lab: [address] [address] Performing Lab: [address] [address] CALCIUM 9.2 mg/dL 8.5-10.2 Feb 03, 2024 11:37 AM [facility] IRON & TIBC PANEL Specimen Type: SERUM No comment entered. Ordering Provider: ARTEM FARIA Report Released Date/Time: Feb 03, 2024 11:34 AM Reporting Lab: [address] [address] Performing Lab: [address] [address] TIBC 333 ug/dL 204-475 IRON 79 ug/dL 40-160 Transferrin Saturation 23.7 20.0-50.0 Feb 03, 2024 11:28 AM [facility] LYME SEROLOGY PANEL Specimen Type: SERUM Comment: [...] of the panel were validated at the [facility]. Results are considered [...] Feb 03, 2024 11:15 AM Reporting Lab: [facility] [address] [facility] [address] Performing Lab: [facility] [address] [facility] [address] TIER 1 LYME SCREENING EIA Negative Negative LYME AB FINAL INTERPRETATION Negative Negative Advance Directives: All historical and current Section Date Range: From patient's date of to the date document was created. This section includes ALL of a patient's completed or amended [place] Advance and Rescinded Directives. The entries below indicate that a directive exists for the patient, but an actual copy is not included with this document. The data comes from all [place] facilities. Date Advance Directives Provider Source Mar 15, 2008 ADVANCE DIRECTIVE GERARDO MARSH [facility] Encounter Notes: All associated encounter notes This section contains the clinical notes associated to the Encounter. Date/Time Encounter Note(s) Provider Source Feb 18, 2024 01:33 PM MEDICATION MGT NOT E: LOCAL TITLE: OUTPATIENT MEDICATION REQUEST STANDARD TITLE: MEDICATION MGT NOTE DATE OF NOTE: FEB 18, 2024@13:33 ENTRY DATE: FEB 18, 2024@13:39:02 AUTHOR: SHELLY MONTANO COSIGNER: URGENCY: STATUS: COMPLETED Medication Request Date of Request: Jan Is this a New Medication? No OLODATEROL/TIOTROP 2.5MCG/ACTUAT 60D INH ND: [address]-86 Verb: INHALE (3) *Dosage: 2 PUFFS (1 DOSE) *Route: INHALATION ORAL *Schedule: QDAILY (4)Pat Instructions: Indications: SIG: INHALE 2 PUFFS (1 DOSE) BY MOUTH ONCE DAILY TORSEMIDE 20MG TAB NDC: [address]-61 (3) *Dosage: 60 (MG) Verb: TAKE Dispense Units: 3 Noun: TABLETS *Route: ORAL *Schedule: DAILY (4)Pat Instructions: Indications: SIG: TAKE THREE TABLETS BY MOUTH ONCE DAILY SACUBITRIL 24MG/VALSARTAN 26MG TAB ND: [address]-71 Verb: TAKE (3) *Dosage: 1 TABLET *Route: ORAL *Schedule: BID (4)Pat Instructions: Indications: SIG: TAKE 1 TABLET BY MOUTH TWICE DAILY The following actions were performed: PACT Team RN and Provider added as additional Signers to this request *Please let patient know that this request may take up to 72 hours to process.* /josue/ SHELLY MONTANO Signed: 02/18/2024 13:40 Receipt Acknowledged By: 03/16/2024 13:31 /josue/ KARRI FARIA MD PHYSICIAN 02/18/2024 13:54 /josue/ NINA NEGRETEN,RN-BC REGISTERED NURSE (RN) SHELLY MONTANO CNTRL W[facility]
--- OUTSIDE RECORDS SUMMARY | 2024-06-07 14:21 | XMS_ITS ---
Author Name Department of Vetera Affairs ([place]) Organization Department of Vetera Affairs ([place]) Address [address] [place] [address] Care Team Providers Care Green Chain Puller [...] Patient's Relationship to Policy [employer] ([id number]) PRESCRIPT ION [place] RAMESH TIES Jan 05, 2009 [id number] NEVERSMICHAELA PATIENT [facility] MEDICARE SUPPLEMEN TAL [place] IND Jun 29, 2016 MEDICAR E SUPPLEM E [id number] NEVERSMICHAELA PATIENT MEDICARE (WNR) MEDICARE (M) PART A October 28, 1999 PART A [id number] ADAMS SHEEHAN JR PATIENT MEDICARE (WNR) MEDICARE (M) PART B October 28, 1999 PART B [id number] ADAMS SHEEHAN JR PATIENT UMR MEDIGAP PLAN C [place] KEILY CHANDLERI TIES Apr 05, 2007 [id number] MICHAELA SHEEHAN PATIENT Selected Encounter This section includes the information on record at [place] for the Encounter. Date/Time Encounter Type Encounter Description Reason Pro vider Source Jun 01, 2024 11:56 AM Outpatient Encounter ADMIN PAT ACTIVTIES (MASNONCT) IHE Encounter Template Text not used by MD Advance Directives: All historical and current Section Date Range: From patient's date of to the date document was created. This section includes ALL of a patient's completed or amended [place] Advance and Rescinded Directives. The entries below indicate that a directive exists for the patient, but an actual copy is not included with this document. The data comes from all [place] facilities. Date Advance Directives Provider Source Mar 15, 2008 ADVANCE DIRECTIVE GERARDO MARSH [facility] Encounter Notes: All associated encounter notes This section contains the clinical notes associated to the Encounter. Date/Time Encounter Note(s) Provider Source Jun 01, 2024 11:56 AM MEDICATION MGT NOT E: LOCAL TITLE: OUTPATIENT MEDICATION REQUEST STANDARD TITLE: MEDICATION MGT NOTE DATE OF NOTE: JUN 01, 2024@11:56 ENTRY DATE: JUN 01, 2024@11:56:39 AUTHOR: SHELLY MONTANO EXP COSIGNER: URGENCY: STATUS: COMPLETED Medication Request Date of Request: May Is this a New Medication? No ATORVASTATIN CALCIUM 40MG TAB [facility] SATELLITE: [address]-65 (3) *Dosage: 20 (MG) Verb: TAKE Dispense Units: 0.5 Noun: TABLET *Route: ORAL *Schedule: DAILY (4)Pat Instructions: Indications: FOR HIGH CHOLESTEROL SIG: TAKE ONE-HALF TABLET BY MOUTH ONCE DAILY The following actions were performed: PACT Team RN and Provider added as additional Signers to this request *Please let patient know that this request may take up to 72 hours to process.* /richard MONTANO Signed: 06/01/2024 11:57 Receipt Acknowledged By: 06/02/2024 09:27 /josue/ JUAN DE SOUZA NP NURSE PRACTITIONER for KARRI BIENVENIDO 06/01/2024 18:06 /josue/ NINA NEGRETEN,RN-BC REGISTERED NURSE (RN) SHELLY MONTANO [facility]
--- OUTSIDE RECORDS SUMMARY | 2024-06-07 14:21 | XMS_ITS ---
Author Organization Gregory Trimble MD Address [address] [place] [phone] Care Team Providers Care Barrel Washer Machine Name Role Phone Gregory Trimble Primary Care Provider [phone] ALLERGIES Allergen (clinical drug ingredient) Drug/Non Drug Allergy documented on EMR Reaction Allergy Type Onset Date Status Metoprolol Succinate severe rohit Drug Allergy Active REASON FOR VISIT 6 week MEDICATIONS Medication SIG (Take, Route, Frequency, Duration) Notes Start Date End Date Status traMADol HCl 50 MG 1 tablet as needed Orally Once a day Not-Taking Potassium Chloride ER 10 MEQ TAKE 1 CAPSULE BY MOUTH EVERY DAY WITH FOOD for 90 Active Stiolto Respimat 2.5-2.5 MCG/ACT 2 puffs Inhalation Once a day Not-Taking Bethanechol Chloride 50 MG 1 tablet 1 hour before or 2 hours after meals Orally twice a day Active Fluticasone Propionate 50 MCG/ACT USE 1 SPRAY IN EACH NOSTRIL EVERY DAY Nasally Once a day Active Ventolin HFA 108 (90 Base) MCG/ACT 2 puffs as needed Inhalation every 4 hrs Active Ipratropium-Albuterol 0.5-2.5 (3) MG/3ML 3 ml Inhalation every 6 hrs 03/18/2018 Active Torsemide 20 MG 3 tablet Orally Once a day in morning 01/16/2022 Active Flonase 50 MCG/ACT 1 spray in each nost ril Nasally Once a day for 30 days Active Atorvastatin Calcium 20 MG TAKE 1 TABLET BY MOUTH EVERY DAY Orally Once a day Active Xarelto 20 MG 1 tablet with food Orally Once a day Active Entresto 24-26 MG 1 tablet Orally once a day Active Finasteride 5 MG TAKE 1 TABLET BY CLINT TH EVERY DAY Orally Once a day for 90 days Active Tamsulosin HCl 0.4 MG 1 capsule Orally O nce a day Active Tylenol 8 Hour 650 MG 2 tablets as neede d Orally every 8 hrs Active Vitamin C 250 MG 1 tablet Orally Once a day for 30 day(s) Active MiraLax 17 GM 1 packet mixed with 8 ounces of fluid Orally Once a day for 30 day(s) Active Fe Tabs 325 (65 Fe) MG 0.5 tab Orally On a day 06/17/2019 Active Bactroban Active Tadalafil 5 MG 1 tablet as needed Orally Once a day for 30 day(s) Active VITAL SIGNS BMI 21.59 kg/m2 01/28/2024 Blood pressure systolic 118 mm Hg 01/28/20 24 Blood pressure diastolic 50 mm Hg 024 Height 71.50 in 01/28/2024 Weight 157 lbs 01/28/2024 Encounters Encounter Location Date Provider Diagnosis Gregory Trimble MD [address] [place], [place] [phone] 01/28/2024 Gregory Trimble Neuropathy G62.9 ; Generalized weakness R53.1 ; COPD (chronic obstructive pulmonary disease) J44.9 and LUCIO (obstructive sleep apnea) G47.33 ASSESSMENTS Encounter Date Diagnosis Assessment Notes Treatment Notes Treatment Clinical Notes 01/28/2024 Neuropathy (ICD-10 - G62.9) need note from dr walters/ NOTE REQUESTED FROM HIM @ [facility] 01/28/2024 Generalized weakness (ICD-10 - R53.1) seems that there is nothng that can fix this 01/28/2024 COPD (chronic obstructive pulmonary disease) (ICD-10 - J44.9) Stable. Continue current regiment. 01/28/2024 LUCIO (obstructive sleep apnea) (ICD-10 - G47.33) using machine nightly PLAN OF TREATMENT Medication Medication Name Sig Start Date Stop Date Notes Fluticasone Propionate 50 MCG/ACT USE 1 SPRAY IN EACH NOSTRIL EVERY DAY Nasally Once a day Ventolin HFA 108 (90 Base) MCG/ACT 2 puffs as needed Inhalation every 4 hrs Ipratropium-Albuterol 0.5-2. 5 (3) MG/3ML 3 ml Inhalation every 6 hrs 03/18/2018 Treatment Notes Assessment Notes Neuropathy need note from dr angel arnold/ NOTE REQUESTED FROM [facility] @ [facility] Generalized weakness seems that there is nothng that can fix this COPD (chronic obstructive pulmonary dise ase) Stable. Continue current regiment. LUCIO (obstructive sleep apnea) using mach ine nightly Next Appt Details Follow Up: 2 Months, Reason: Provider Name:Gregory brown, 07/19/2024 08:00:00 AM, [address] [place] [address], [address], [phone], Provider Name:Gregory brown, 07/26/2024 01:00:00 PM, [address] [place] [address], [address], [phone], Provider Name:Gregory brown, 10/21/2024 08:00:00 AM, [address] [place] [address], [address], [phone], Provider Name:Gregory brown, 10/27/2024 01:30:00 PM, [address] [place] [address], [address], [phone], Progress Notes * Examination Category Sub-Category Detail Notes General Examination GENERAL APPEARANCE: alert, w ell hydrated, in no distress EYES: LEFT EYE with eyelid ecchymotic with a 1 mm smooth white lesion in the middle of it HEART: regular rate and rhy thm, no murmurs, rubs, gallops LUNGS: no wheezes, rales, r honchi, good air movement, clear to auscultation bilaterally SKIN: good turgor
--- OUTSIDE RECORDS SUMMARY | 2024-06-07 14:21 | XMS_ITS ---
Author Organization Gregory Trimble MD Address [address] [place] [phone] Care Team Providers Care Teletype Or Varitype Keyboard Operator Name Role Phone Atilio Gregory Primary Care Provider [phone] REASON FOR VISIT Needs repeat CT Chest Encounters Encounter Location Date Provider Diagnosis Gregroy Trimble MD [address] [place] [phone] 03/14/2024 Gregory Trimble Lung nodule < 6cm on CT R91.1 ASSESSMENTS Encounter Date Diagnosis Assessment Notes Treatment Notes Treatment Clinical Notes 03/14/2024 Lung nodule < 6cm on CT (ICD-10 - R91.1) Order made and printed and put into the future folder for PLAN OF TREATMENT Treatment Notes Assessment Notes Lung nodule < 6cm on CT Order made and p rinted and put into the future folder for Pending Test Test Name Order Date CT chest wo con 03/14/2024 Next Appt Details Provider Name:Gregory brown, 07/19/2024 08:00:00 AM, [address] [place] [address], [address], [place]A Sebastian, [phone], Provider Name:Gregory brown, 07/26/2024 01:00:00 PM, [address] [place] [address], [address], [place]A [place], [phone], Provider Name:Gregory brown, 10/21/2024 08:00:00 AM, [address] [place] [address], [address], [place]A Sebastian, [phone], Provider Name:Gregory brown, 10/27/2024 01:30:00 PM, [address] [place] [address], [address], [place]A Sebastian, [phone],
--- OUTSIDE RECORDS SUMMARY | 2024-06-07 14:21 | XMS_ITS ---
Author Organization Gregory Trimble MD Address [address] [place] [phone] Care Team Providers Care Export Coordinator Name Role Phone Gregory Trimble Primary Care Provider ALLERGIES Allergen (clinical drug ingredient) Drug/Non Drug Allergy documented on EMR Reaction Allergy Type Onset Date Status Metoprolol Succinate severe rohit Drug Allergy Active REASON FOR VISIT 2 MO F/U MEDICATIONS Medication SIG (Take, Route, Frequency, Duration) Notes Start Date End Date Status Ipratropium-Albuterol 0.5-2.5 (3) MG/3ML 3 ml Inhalation every 6 hrs 03/18/2018 Active Ventolin HFA 108 (90 Base) MCG/ACT 2 puffs as needed Inhalation every 4 hrs Active Fluticasone Propionate 50 MCG/ACT USE 1 SPRAY IN EACH NOSTRIL EVERY DAY Nasally Once a day Active traMADol HCl 50 MG 1 tablet as needed Orally Once a day Not-Taking Stiolto Respimat 2.5-2.5 MCG/ACT 2 puffs Inhalation Once a day Not-Taking Flonase 50 MCG/ACT 1 spray in each nost ril Nasally Once a day for 30 days Active Potassium Chloride ER 10 MEQ TAKE 1 CAPSULE BY MOUTH EVERY DAY WITH FOOD for 90 Active Bethanechol Chloride 50 MG 1 tablet 1 hour before or 2 hours after meals Orally twice a day Active Entresto 24-26 MG 1 tablet Orally once a day Active Torsemide 20 MG 3 tablet Orally Once a day in morning 01/16/2022 Active Fe Tabs 325 (65 Fe) MG 0.5 tab Orally On a day 06/17/2019 Active Finasteride 5 MG TAKE 1 TABLET BY CLINT TH EVERY DAY Orally Once a day for 90 days Active Tamsulosin HCl 0.4 MG 1 capsule Orally O nce a day Active Atorvastatin Calcium 20 MG TAKE 1 TABLET BY MOUTH EVERY DAY Orally Once a day Active Xarelto 20 MG 1 tablet with food Orally Once a day Active Tylenol 8 Hour 650 MG 2 tablets as neede d Orally every 8 hrs Active MiraLax 17 GM 1 packet mixed with 8 ounces of fluid Orally Once a day for 30 day(s) Active Vitamin C 250 MG 1 tablet Orally Once a day for 30 day(s) Active Bactroban Active Tadalafil 5 MG 1 tablet as needed Orally Once a day for 30 day(s) Active IMMUNIZATIONS Vaccine Route Administration Date Status Comme nts Influenza High Dose IM Intramuscular 04/29/2024 Administer ed VITAL SIGNS BMI 22.28 kg/m2 04/29/2024 Blood pressure systolic 108 mm Hg 04/29/20 24 Blood pressure diastolic 42 mm Hg 024 Height 71.50 in 04/29/2024 Weight 162 lbs 04/29/2024 weight is up 5 pounds since 01-28-24 Encounters Encounter Location Date Provider Diagnosis Gregory Trimble MD [address] [place] [address] [address] [place], [place] [phone] 04/29/2024 Gregory Trimble COPD (chronic obstructive pulmonary disease) J44.9 ; Chronic fatigue R53.82 ; Lung nodule < 6cm on CT R91.1 and Encounter for immunization Z23 ASSESSMENTS Encounter Date Diagnosis Assessment Notes Treatment Notes Treatment Clinical Notes 04/29/2024 COPD (chronic obstructive pulmonary disease) (ICD-10 - J44.9) as good as he is going to get 04/29/2024 Chronic fatigue (ICD-10 - R53.82) no further treatment available 04/29/2024 Lung nodule < 6cm on CT (ICD-10 - R91.1) no need for further treatment 04/29/2024 Encounter for immunization (ICD-10 - Z23) PLAN OF TREATMENT Next Appt Details Follow Up: 6 Months, Reason: Provider Name:Gregory brown, 07/19/2024 08:00:00 AM, [address] [place] [address], Suite [facility], [place], [place], [phone], Provider Name:Gregory brown, 07/26/2024 01:00:00 PM, [address] [place] [address], [address], [phone], Provider Name:Gregory brown, 10/21/2024 08:00:00 AM, [address] [place] [address], [place] [address], [place], [place], [phone], Provider Name:Gregory brown, 10/27/2024 01:30:00 PM, [address] [place] [address], [place] [address], [place], [place], [phone], Progress Notes * Examination Category Sub-Category Detail Notes General Examination GENERAL APPEARANCE: elderly , male HEAD: normocephalic HEART: no murmurs, rubs, ga llops , regular rate and rhythm LUNGS: no wheezes, rales, r honchi , good air movement , clear to auscultation bilaterally SKIN: good turgor
--- OUTSIDE RECORDS SUMMARY | 2024-06-07 14:22 | XMS_ITS | Patient Health Record ---
Author Organization Gregory Trimble MD Address [address] [place] [phone] Care Team Providers Care Phlebotomy Program Coordinator Name Role Phone Gregory Trimble Primary Care Provider [phone] ALLERGIES Allergen (clinical drug ingredient) Drug/Non Drug Allergy documented on EMR Reaction Allergy Type Onset Date Status Metoprolol Succinate severe rohit Drug Allergy Active RESULTS Component Value Reference Range Notes Basic Metabolic Panel Reviewed date:06/11/2023 03:16:29 PM Interpretation: Performing Lab:[facility], [address] [place] [phone] Notes/Report: Sodium 140 135-145 mmol/L Potassium 4.9 3.3-5.1 mmol/L Chloride 106 96-108 mmol/L Carbon Dioxide 26 22-29 mmol/L Anion Gap 13 12-20 Blood Urea Nitrogen 46 9-16 mg/dL Creatinine 1.06 0.5-1.4 mg/dL Estimated Glomerular Filt Rate > 60 NOTE: For -Micronesian individuals, multiply the result by 1.210. Chronic Kidney Disease: Estimated GFR < 60 mL/min/1.73m2 Severe Kidney Disease: Estimated GFR < 15 mL/min/1.73m2 Glucose Random 107 60-115 mg/dL Calcium 9.9 8.4-10.2 mg/dL Complete Blood Count Auto Di ff Reviewed date:07/20/2023 12:42:57 PM Interpretation: Performing Lab:[facility], [address] [place] [phone] Notes/Report: White Blood Count 4.4 4.8-10.8 X10*3/uL Red Blood Count 4.03 4.60-5.80 X10*6/uL Hemoglobin 12.5 14.0-18.0 g/dl Hematocrit 39.9 42.0-52.0 % Mean Corpuscular Volume 99.0 80.0-98.0 fL Mean Corpuscular Hemoglobin 31.0 27.0-33.0 pg Mean Corpuscular HGB Conc 31.3 31.0-36.0 g/dl Red Cell Distribution Width 14.6 11.0-16.0 % Platelet Count 239 160-400 X10*3/uL Mean Platelet Volume 10.1 9.4-12.4 fL Neutrophils Percent Auto 69.5 45-73 % Imm Gran Pct Auto 0.2 0.0-0.4 % Lymphocytes Percent Auto 14.8 20-40 % Monocytes Percent Auto 12.5 2-11 % Eosinophils Percent Auto 2.1 0-4 % Basophils Percent Auto 0.9 0-2 % NRBC Pct Auto 0.0 0.0-0.2 /100WBC Neutrophils Absolute Auto 3.1 2.0-8.3 x10*3/u L Imm Gran Abs Auto 0.01 0.00-0.03 X10*3/uL Lymphocytes Absolute Auto 0.7 1.2-4.9 X10*3/u L Monocytes Absolute Auto 0.6 0.1-1.2 X10*3/uL Eosinophils Absolute Auto 0.1 0.0-0.4 X10*3/u L Basophils Absolute Auto 0.0 0.0-0.2 X10*3/uL NRBC Abs Auto 0.000 0.0-0.012 X10*3/uL Comprehensive [place]. Panel Fa Reviewed date:07/24/2023 01:01:48 PM Interpretation:see 07-24-2023 Performing Lab:[facility], [address] [place] [phone] Notes/Report: Sodium 143 135-145 mmol/L Potassium 4.3 3.3-5.1 mmol/L Chloride 107 96-108 mmol/L Carbon Dioxide 26 22-29 mmol/L Anion Gap 14 12-20 Blood Urea Nitrogen 45 9-16 mg/dL Creatinine 1.18 0.5-1.4 mg/dL Estimated Glomerular Filt Rate 58 NOTE: For -Micronesian individuals, multiply the result by 1.210. Chronic Kidney Disease: Estimated GFR < 60 mL/min/1.73m2 Severe Kidney Disease: Estimated GFR < 15 mL/min/1.73m2 Glucose Fasting 94 60-99 mg/dL Calcium 9.3 8.4-10.2 mg/dL Bilirubin Total 0.6 0.0-1.0 mg/dL Aspartate Amino Transferase 20 5-37 U/L Alanine Aminotransferase 9 0-40 U/L Total Protein 7.8 6.5-8.0 g/dL Albumin Level 4.1 3.5-5.0 g/dL Alkaline Phosphatase 69 39-117 U/L IRON PROFILE Reviewed date:07/20/2023 12:56:10 PM Interpretation: Performing Lab:[facility], [address] [place] [phone] Notes/Report: Iron 51 45-160 mcg/dL Total Iron Binding Capacity 278 228-428 mcg/d L Percent Iron Saturation 18 15-50 % Unsaturated Iron Binding 227 Lipid Panel Reviewed date:07/20/2023 12:56:38 PM Interpretation: Performing Lab:[facility], [address] [place] [phone] Notes/Report: Triglycerides 62 <150 mg/dL Desirable Triglyceride: less than 150 mg/dL Borderline High Triglyceride 150-199 mg/dL High Triglyceride: 200-499 mg/dL Very High Triglyceride: greater than or equal to 5OO mg/dL Cholesterol 127 <200 mg/dL Desirable Cholesterol: less than 200 mg/dL Borderline High Cholesterol: 200-239 mg/dL High Cholesterol: greater than 239 mg/dL LDL Cholesterol Calculated 69 <100 mg/dL Desirable LDL: less than 100 mg/dL Near Optimal/Above Optimal LDL: 110-129 mg/dL Borderline High LDL: 130-159 mg/dL High LDL: 160-189 mg/dL Very High LDL: greater than or equal to 190 mg/dL HDL Cholesterol 46 >40 mg/dL Desirable HDL: greater than 40 mg/dL Note: This HDL assay may give artificially low results in patients with liver disease. PSA,Total (Free>4and<10) Reviewed date:07/20/2023 03:15:10 PM Interpretation: Performing Lab:[address] [phone] Notes/Report: PSA,Total (Free>4and<10) 0.75 0.00-4.00 ng/mL A Free PSA was not performed: The percentage of Free PSA can be used to enhance the differentiation of prostate cancer from benign prostatic disease in subjects whose PSA levels are between 4.0 and 10.0 ng/mL. For subjects whose PSA levels are below 4.0 or above 10.0 ng/mL, the risk of prostate cancer is determined on the basis of the PSA alone. Therefore the % Free PSA is recommended only for those subjects whose PSA levels are between 4.0 and 10.0 ng/mL. PSA methodology: Khalil Alinity i Chemiluminescent Microparticle Immunoassay (CMIA) Vitamin B12 Reviewed date:07/20/2023 05:14:41 PM Interpretation: Performing Lab:[facility], [address] [place] [phone] Notes/Report: Vitamin B12 392 200-900 pg/mL NORMAL 200-900 PG/ML INDETERMINATE 160-199 PG/ML DEFICIENT < 160 PG/ML UA ClnCatch+Micro w/rflx Cul t Reviewed date:07/24/2023 05:17:55 PM Interpretation: Performing Lab:[address] [phone] Notes/Report: Urine, Clean Catch Color Urine Yellow Appearance Urine Clear PH 5.5 5.0-9.0 Glucose Urine UA Negative Negative mg/dL Urine Blood Negative Negative Specific [place] - Urine 1.015 1.005-1.025 Urine Protein Negative Neg-Trace mg/dL Urine Ketones Negative Negative mg/dL Nitrite Urine Negative Negative Leukocyte Esterase Urine Negative Negative RBC Urine 0-2 0-2 /HPF WBC Urine 0-5 0-5 /HPF Squamous Epithelial Cell Urine 0-2 0-2 /HPF Bacteria Urine None Seen None Seen Hyaline Casts Urine 3-5 0-2 /LPF Hold Red Reviewed date:10/22/2023 12:25:44 PM Interpretation: Performing Lab:[facility], [address] [place] [phone] Notes/Report: Hold Red See Note Specimen held untested for 24 hours; Call to request Chemistry testing. Blood Urea Nitrogen Reviewed date:10/23/2023 07:27:42 AM Interpretation: Performing Lab:[facility], [address] [place] [phone] Notes/Report: Blood Urea Nitrogen 53 9-16 mg/dL Creatinine Reviewed date:10/22/2023 12:57:51 PM Interpretation: Performing Lab:[facility], [address] [place] [phone] Notes/Report: Creatinine 1.14 0.5-1.4 mg/dL Estimated Glomerular Filt Rate > 60 NOTE: For -Micronesian individuals, multiply the result by 1.210. Chronic Kidney Disease: Estimated GFR < 60 mL/min/1.73m2 Severe Kidney Disease: Estimated GFR < 15 mL/min/1.73m2 Blood Urea Nitrogen Reviewed date:11/16/2023 02:07:06 PM Interpretation: Performing Lab:[facility], [address] [place] [phone] Notes/Report: Blood Urea Nitrogen 51 9-16 mg/dL Creatinine Reviewed date:11/16/2023 01:59:34 PM Interpretation: Performing Lab:[facility], [address] [place] [phone] Notes/Report: Creatinine 1.28 0.5-1.4 mg/dL Estimated Glomerular Filt Rate 53 NOTE: For -Micronesian individuals, multiply the result by 1.210. Chronic Kidney Disease: Estimated GFR < 60 mL/min/1.73m2 Severe Kidney Disease: Estimated GFR < 15 mL/min/1.73m2 Hold Gold Reviewed date:01/14/2024 03:01:08 PM Interpretation: Performing Lab:[facility], [address] [place] [phone] Notes/Report: Subhash Jordan See Note Specimen held untested for 24 hours; Call to request Chemistry testing. Liver Panel Reviewed date:01/14/2024 04:35:10 PM Interpretation: Performing Lab:[facility], [address] [place] [phone] Notes/Report: Bilirubin Total 0.7 0.0-1.0 mg/dL Bilirubin Direct 0.3 0.0-0.5 mg/dL Aspartate Amino Transferase 19 5-37 U/L Alanine Aminotransferase 7 0-40 U/L Total Protein 7.3 6.5-8.0 g/dL Albumin Level 4.3 3.5-5.0 g/dL Alkaline Phosphatase 68 39-117 U/L Blood Urea Nitrogen Reviewed date:01/14/2024 03:00:58 PM Interpretation: Performing Lab:[facility], [address] [place] [phone] Notes/Report: Blood Urea Nitrogen 38 9-16 mg/dL Creatinine Reviewed date:01/14/2024 04:34:35 PM Interpretation: Performing Lab:[facility], [address] [place] [phone] Notes/Report: Creatinine 1.06 0.5-1.4 mg/dL Estimated Glomerular Filt Rate > 60 NOTE: For -Micronesian individuals, multiply the result by 1.210. Chronic Kidney Disease: Estimated GFR < 60 mL/min/1.73m2 Severe Kidney Disease: Estimated GFR < 15 mL/min/1.73m2 Lipid Panel with Reflex Reviewed date:01/14/2024 04:35:18 PM Interpretation: Performing Lab:[facility], [address] [place] [phone] Notes/Report: Triglycerides 71 <150 mg/dL Desirable Triglyceride: less than 150 mg/dL Borderline High Triglyceride 150-199 mg/dL High Triglyceride: 200-499 mg/dL Very High Triglyceride: greater than or equal to 5OO mg/dL Cholesterol 97 <200 mg/dL Desirable Cholesterol: less than 200 mg/dL Borderline High Cholesterol: 200-239 mg/dL High Cholesterol: greater than 239 mg/dL LDL Cholesterol Calculated 36 <100 mg/dL Desirable LDL: less than 100 mg/dL Near Optimal/Above Optimal LDL: 110-129 mg/dL Borderline High LDL: 130-159 mg/dL High LDL: 160-189 mg/dL Very High LDL: greater than or equal to 190 mg/dL HDL Cholesterol 47 >40 mg/dL Desirable HDL: greater than 40 mg/dL Note: This HDL assay may give artificially low results in patients with liver disease. CT chest wo con Reviewed date:03/14/2024 01:08:36 PM Interpretation: Performing Lab: Notes/Report: [address] [address] [address] Scan Report Signed Patient: Duke Sheehan Jr MR#: [id number] : 1935 Acct:[id number] Age/Sex: 88 / M ADM Date: 02/19/24 Loc: HO.CT Attending Dr: Gregory Trimble MD Ordering Physician: Gregory Trimble MD Date of Service: 02/19/24 Procedure(s): CT chest wo IV con Accession Number(s): [id number] cc: Gregory Trimble MD EXAMINATION: CT CHEST WITHOUT CONTRAST CLINICAL INFORMATION: Pulmonary nodule. COMPARISON: CT chest examinations, most recently 02/24/2023. TECHNIQUE: Multidetector volumetric CT imaging of the chest was done. Axial MIP volume rendering provided. Sagittal and coronal reformatted images were obtained. This CT examination was performed using dose optimization techniques as appropriate, variously including the following: *Automated exposure control *Adjustment of mA and/or kV according to patient size (this includes techniques or standardized protocols for targeted exams where dose is matched to indication/reason for exam; i.e. 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 LUNGS: There are small benign, calcified right lung granulomas. At the lateral right base (5.470), a 5 mm noncalcified nodule is newly seen. A benign, calcified granuloma is seen at the lateral right base. At the medial left base (5:287), a stable (upon remeasurement) 9 mm noncalcified nodule is seen. At the posterior right base (5:424), a stable 2 mm noncalcified nodule is seen. There is no mass, infiltrate or ground glass opacity. There are moderately severe centrilobular emphysematous changes. No generalized small airway thickening is seen. The central airways appear patent. MEDIASTINUM: The thyroid is unremarkable. There is no thoracic aortic aneurysm. There are moderate atherosclerotic calcifications of the great vessel origins and thoracic aorta. No mediastinal or hilar lymphadenopathy is seen. CORONARY ARTERY CALCIFICATION: Marked. PLEURA: There is no pleural effusion. No pleural mass or thickening. AXILLA: No lymphadenopathy. There is very mild bilateral gynecomastia. UPPER ABDOMEN: Unremarkable. OSSEOUS STRUCTURES: There is multi-level lower cervical, thoracic and upper lumbar degenerative disease and endplate arthropathy. There is an old, healed lateral right 10th rib fracture. No acute or aggressive osseous body is seen. CT/CT chest wo IV con IMPRESSION: 1. There are bilateral calcified and noncalcified pulmonary nodules, including a new 5 mm nodule at the lateral right base. According to the UPDATED 2017 Fleischner Society recommendations, the advised follow-up imaging for solid nodules < 6 mm is: LOW RISK PATIENT: No routine follow-up. HIGH RISK PATIENT: Optional CT at 12 months. 2. No mass, infiltrate or groundglass opacity is seen. 3. There are moderately severe emphysematous changes. 4. There are marked coronary artery atherosclerotic calcifications. 5. There are degenerative changes of the spine. No aggressive osseous lesion is seen. Fleischner guidelines were followed. Electronically signed by: Genaro Clarke MD 03/14/2024 12:28 PM EDT Dictated By: Genaro Clarke MD Signed By: <Electronically signed by Genaro Clarke MD in OV> 03/14/24 1228 DD/ 1457 TD/TT: 02/19/24 1500 Reception Clerk: LARRY Sims Reviewed date:05/11/2024 04:16:39 PM Interpretation: Performing Lab:[facility], [address] [place] [phone] Notes/Report: REASON FOR REFERRAL Reason NEUROPATHY Diagnosis 1 Neuropathy (G62.9) Referral Organization Gregory Trimble MD Referring Provider First Name Gregory Referring Provider Last Name Atilio Referring Provider Speciality Internal M edicine Referred Provider Amee Walters Referred Provider Specialty Neurology General Notes Mallorie Gilliland 10/22/2023 08:15:04 AM EDT > MR SHEEHAN KEPT APPT AND OFFICE NOTE RECD Referral Priority Routine Referral Appointment Date 10/19/2023 Reason GENERALIZED WEAKNESS Diagnosis 1 Generalized weakness (R53.1) Referral Organization Gregory Trimble MD Referring Provider First Name Gregory Referring Provider Last Name Atilio Referring Provider Speciality Internal M edicine Referred Provider [facility] Referred Provider Specialty Physical The rapist General Notes Mallorie Gilliland 09/01/2023 08:36:31 AM EST > REFERRAL FAXED ON 09/01/23, Mallorie Gilliland 09/08/2023 11:49:45 AM EDT > KRISTEN IS SCHEDULED FOR 09/15 AT 1PM, Mallorie Gilliland 09/22/2023 03:34:45 PM EDT > KRISTEN IS DOING PT WITH [facility] TWICE PER WEEK AND HE IS SCHEDULED THROUGH September PER [facility] PT DEP Referral Priority Routine Referral Appointment Date 09/16/2023 MEDICATIONS Medication SIG (Take, Route, Frequency, Duration) Notes Start Date End Date Status Fe Tabs 325 (65 Fe) MG 0.5 tab Orally On a day 06/17/2019 Active Ipratropium-Albuterol 0.5-2.5 (3) MG/3ML 3 ml Inhalation every 6 hrs 03/18/2018 Active Finasteride 5 MG TAKE 1 TABLET BY CLINT EVERY DAY Orally Once a day for 90 days Active Ventolin HFA 108 (90 Base) MCG/ACT 2 puffs as needed Inhalation every 4 hrs Active Tamsulosin HCl 0.4 MG 1 capsule Orally O nce a day Active Tylenol 8 Hour 650 MG 2 tablets as neede d Orally every 8 hrs Active Flonase 50 MCG/ACT 1 spray in each nost ril Nasally Once a day for 30 days Active MiraLax 17 GM 1 packet mixed with 8 ounces of fluid Orally Once a day for 30 day(s) Active Potassium Chloride ER 10 MEQ TAKE 1 CAPSULE BY MOUTH EVERY DAY WITH FOOD for 90 Active Vitamin C 250 MG 1 tablet Orally Once a day for 30 day(s) Active Bethanechol Chloride 50 MG 1 tablet 1 hour before or 2 hours after meals Orally twice a day Active Bactroban Active Fluticasone Propionate 50 MCG/ACT USE 1 SPRAY IN EACH NOSTRIL EVERY DAY Nasally Once a day Active Atorvastatin Calcium 20 MG TAKE 1 TABLET BY MOUTH EVERY DAY Orally Once a day Active traMADol HCl 50 MG 1 tablet as needed Orally Once a day Not-Taking Xarelto 20 MG 1 tablet with food Orally Once a day Active Entresto 24-26 MG 1 tablet Orally once a day Active Tadalafil 5 MG 1 tablet as needed Orally Once a day for 30 day(s) Active Torsemide 20 MG 3 tablet Orally Once a day in morning 01/16/2022 Active Stiolto Respimat 2.5-2.5 MCG/ACT 2 puffs Inhalation Once a day Not-Taking IMMUNIZATIONS Vaccine Route Administration Date Status Comme nts Flu Vaccine Unknown 02/27/2011 Administered Flu Vaccine IM Intramuscular 03/16/2012 Administered Prevnar 13 Unknown 05/28/2012 Administered PPSV23 (Pnemovax) Unknown 07/26/2007 Administered Flu Vaccine IM Intramuscular 03/15/2013 Administered Fluarix Quadrivalent IM Intramuscular 02/28/2014 Administe red Shingles SC Subcutaneous 03/28/2014 Administered [facility] PPSV23 (Pnemovax) IM Intramuscular 12/28/2014 Administered Fluarix Quadrivalent IM Intramuscular 04/02/2015 Administe red Fluarix Quadrivalent IM Intramuscular 02/28/2016 Administe red Fluarix Quadrivalent Unknown 04/15/2017 Administered [facility] Influenza High Dose IM Intramuscular 04/16/2018 Administer ed Fluarix Quadrivalent IM Intramuscular 03/29/2019 Administe red Influenza High Dose IM Intramuscular 03/01/2020 Administer ed SARS-COV-2 Pfizer Unknown 07/19/2020 Administered SARS-COV-2 Pfizer Unknown 08/16/2020 Administered Influenza High Dose Unknown 03/28/2021 Administered [facility] [place] PPSV23 (Pnemovax) IM Intramuscular 07/11/2021 Administered SARS-COV-2 Moderna Unknown 06/01/2021 Administered Influenza High Dose Unknown 03/07/2022 Administered [facility] [place] Influenza High Dose IM Intramuscular 03/24/2023 Administer ed Influenza High Dose IM Intramuscular 04/29/2024 Administer ed Flu Vaccine Unknown 02/28/2014 Pending SOCIAL HISTORY Tobacco Use: Social History Observation Description Date Details (start date - stop date) Former Smoker NA - NA Sex Assigned At : Social History Observation Description Sex Assigned At Unknown Tobacco Use/Smoking Question Answer Notes Patient is a former smoker How long has it been since y ou last smoked? > 10 years Additional Findings: Tobacco Non-User Fo rmer smoker, currently using no form of tobacco Alcohol Screen Question Answer Notes Did you have a drink containing alcohol in the p ast year? 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) Active confirmed Lipoprotein deficiency disorder (288575130) Problem Essential (primary) hypertension (I10) Active confirmed Essential hypertension (64941457) Problem Other abnormal gluco se (R73.09) Active confirmed Abnormal glucos e level (101140510) Problem Lumbar disc disease (M51.9) Active confirmed Disorder of lumbar disc (072965476) Problem 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) Active confirmed 035528342 Problem Lung nodule (R91.1) Active confirmed 30 5302436 Problem Bladder mass (N32.89) Active confirmed 122313939 Problem COPD (chronic obstructive pulmonary disease) (J44.9) Active confirmed 35514311 Problem Bilateral carotid artery disease (I77.9) Active confirmed 599063829 Problem Esophageal dysmotili ty (K22.4) Active confirmed 878217408 Problem Acute systolic heart failure (I50.21) Active confirmed 375200394 Problem Iron deficiency 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 (D50.0) Active confirmed 176370224 Problem Spinal stenosis of lumbosacral region (M48.07) Active confirmed 23488284 Problem Chronic fatigue (R53.82) Active confirmed 42114210 Problem Bilateral low back pain with right-sided sciatica (M54.41) Active confirmed Sciatica (25867657) Problem Pure hypercholesterolemia (E78.00) Active confirmed 746637482 Problem Elevated PSA (R97.20) Active confirmed 501293399 Problem Imbalance (R26.89) Active confirmed 387 327718 Problem Bilateral carpal tunnel syndrome (G56.03) Active confirmed 24666868 Problem LUCIO (obstructive sle ep apnea) (G47.33) Active confirmed 57340976 Problem 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) Active confirmed 260030233111300 Problem Spinal stenosis of lumbar region, unspecified whether neurogenic claudication present (M48.061) Active confirmed Spinal stenosis of lumbar region (61686279) Problem Poor balance (R26.89) Active confirmed 219257753 Problem Pulmonary hypertensi on (I27.20) Active confirmed 98288726 Problem Heart failure with preserved ejection fraction (I50.30) Active confirmed 63309715 Problem Malignant neoplasm o f urinary bladder, 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) Active confirmed 836624799 Problem Lung nodule < 6cm on CT (R91.1) Active confirmed 195614125 Problem Persistent atrial fibrillation (I48.19) Active confirmed 068376182 Problem Atrial fibrillation with slow ventricular response (I48.91) Active confirmed 32406367 VITAL SIGNS Blood pressure diastolic 42 mm Hg 04/29/2024 ahsan ght is up 5 pounds since 01-28-24 Height 71.50 in 04/29/2024 weight is up 5 pounds since 01-28-24 Blood pressure systolic 108 mm Hg 04/29/2024 weig ht is up 5 pounds since 01-28-24 Weight 162 lbs 04/29/2024 weight is up 5 pounds since 01-28-24 BMI 22.28 kg/m2 04/29/2024 weight is up 5 pounds since 01-28-24 Encounters Encounter Location Date Provider Diagnosis Gregory Trimble MD [address] [place] [address] Drive [address] [place] [id number] 07/24/2023 Gregory Trimble Malignant neoplasm o f urinary bladder, unspecified site C67.9 ; Prostatism N40.0 ; Pulmonary hypertension I27.20 ; Elevated BUN R79.9 ; COPD (chronic obstructive pulmonary disease) J44.9 ; Pure hypercholesterolemia E78.00 ; Acute systolic heart failure I50.21 ; Persistent atrial fibrillation I48.19 and Depression screening Z13.31 Gregory Trimble MD [address] [place] [address] Drive [address] [place] [id number] 07/20/2023 Gregory Trimble Essential (primary) hypertension I10 ; Pure hypercholesterolemia E78.00 ; Elevated PSA R97.20 ; Acute systolic heart failure I50.21 ; Vitamin B 12 deficiency E53.8 and Iron deficiency anemia due to chronic blood loss D50.0 Gregory Trimble MD [address] [place] [address] [id number] 01/14/2024 Gregory Trimble Pure hypercholestero lemia E78.00 and Elevated BUN R79.9 Gregory Trimble MD [address] [place] [id number] 10/22/2023 Gregory Trimble Essential (primary) hypertension I10 and Elevated BUN R79.9 Gregory Trimble MD [address] [place] [address] [id number] 11/16/2023 Gregory Trimble Acute systolic heart failure I50.21 Gregory Trimble MD [address] [place] [address] [id number] 06/11/2023 Gregory Trimble COPD (chronic obstru ctive pulmonary disease) J44.9 ; Atrial fibrillation with slow ventricular response I48.91 and LUCIO (obstructive sleep apnea) G47.33 Gregory Trimble MD [address] [place] [id number] 09/17/2023 Gregory Trimble MD [address] [place] [address] [id number] 08/31/2023 Gregory Trimble Neuropathy G62.9 and Generalized weakness R53.1 Gregory Trimble MD [address] [place] [address] [id number] 11/16/2023 Gregory Trimble Essential (primary) hypertension I10 ; Imbalance R26.89 ; Acute systolic heart failure I50.21 and Urinary retention R33.9 Gregory Trimble MD [address] [place] [address] [id number] 11/30/2023 Gregory Trimble Elevated BUN R79.9 ; Dysfunction of both eustachian tubes H69.93 and Balance problem R26.89 Gregory Trimble MD [address] [place] [address] [id number] 01/28/2024 Gregory Trimble Neuropathy G62.9 ; Generalized weakness R53.1 ; COPD (chronic obstructive pulmonary disease) J44.9 and LUCIO (obstructive sleep apnea) G47.33 Gregory Trimble MD [address] [place] [address] [id number] 12/22/2023 Gregory Trimble Insect bite (nonveno mous) of unspecified back wall of thorax, initial encounter S20.469A and Bitten or stung by nonvenomous insect and other nonvenomous arthropods, initial encounter W57.XXXA Gregory Trimble MD [address] [place] [address] [id number] 04/29/2024 Gregory Trimble COPD (chronic obstru ctive pulmonary disease) J44.9 ; Chronic fatigue R53.82 ; Lung nodule < 6cm on CT R91.1 and Encounter for immunization Z23 Gregory Trimble MD [address] [place] [address] [id number] 12/01/2023 Gregory Trimble Elevated BUN R79.9 Gregory Trimlbe MD [address] [place] [address] [id number] 12/01/2023 Gregory Trimble MD [address] [place] [address] [id number] 12/29/2023 Gregory Trimble MD [address] [place] [address] [id number] 01/14/2024 Gregory Trimble MD [address] [place] [address] [id number] 03/14/2024 Gregory Trimble Lung nodule < 6cm on CT R91.1 ASSESSMENTS Encounter Date Diagnosis Assessment Notes Treatment Notes Treatment Clinical Notes 07/24/2023 Prostatism (ICD-10 - N40.0) doing well/ followed by dr aly 07/24/2023 Malignant neoplasm o f urinary bladder, unspecified site (ICD-10 - C67.9) followed by dr aly 07/20/2023 Essential (primary) hypertension (ICD-10 - I10) 07/20/2023 Pure hypercholestero lemia (ICD-10 - E78.00) 01/14/2024 Elevated BUN (ICD-10 - R79.9) 01/14/2024 Pure hypercholestero lemia (ICD-10 - E78.00) 10/22/2023 Elevated BUN (ICD-10 - R79.9) 10/22/2023 Essential (primary) hypertension (ICD-10 - I10) 11/16/2023 Acute systolic heart failure (ICD-10 - I50.21) 06/11/2023 COPD (chronic obstru ctive pulmonary disease) (ICD-10 - J44.9) stable, will continue current regiment 06/11/2023 Atrial fibrillation with slow ventricular response (ICD-10 - I48.91) stable with good pulse, will continue current regiment 08/31/2023 Neuropathy (ICD-10 - G62.9) referral to dr thomas/ REFERRAL MADE FOR NEUROLOGY AND APPT SCHEDULED FOR OCTOBER 182023 AT 2:40 PM. PATIENT AWARE 08/31/2023 Generalized weakness (ICD-10 - R53.1) referral to [facility] for physical therapy/ REFFERAL MADE . WILL FAX WHEN NOTE LOCKED 11/16/2023 Essential (primary) hypertension (ICD-10 - I10) doing well on meds but wondering if he may be getting too low 11/16/2023 Imbalance (ICD-10 - R26.89) may be related to the bethanecol. will try stopping that and watch for difficulty with urinatiion. 11/30/2023 Elevated BUN (ICD-10 - R79.9) will continue to monitor, pending future labs 11/30/2023 Dysfunction of both eustachian tubes (ICD-10 - H69.93) 01/28/2024 Neuropathy (ICD-10 - G62.9) need note from dr walters/ NOTE REQUESTED FROM HIM @ [facility] 01/28/2024 Generalized weakness (ICD-10 - R53.1) seems that there is nothng that can fix this 12/22/2023 Insect bite (nonveno mous) of unspecified back wall of thorax, initial encounter (ICD-10 - S20.469A) patient verbalized understanding of medication and directions for use 12/22/2023 Bitten or stung by nonvenomous insect and other nonvenomous arthropods, initial encounter (ICD-10 - W57.XXXA) 04/29/2024 COPD (chronic obstru ctive pulmonary disease) (ICD-10 - J44.9) as good as he is going to get 04/29/2024 Chronic fatigue (ICD -10 - R53.82) no further treatment available 12/01/2023 Elevated BUN (ICD-10 - R79.9) 03/14/2024 Lung nodule < 6cm on CT (ICD-10 - R91.1) Order made and printed and put into the future folder for 07/24/2023 Pulmonary hypertensi on (ICD-10 - I27.20) followed by dr nicole 07/20/2023 Elevated PSA (ICD-10 - R97.20) 06/11/2023 LUCIO (obstructive sle ep apnea) (ICD-10 - G47.33) using cpap regularly 11/16/2023 Acute systolic heart failure (ICD-10 - I50.21) is stable 11/30/2023 Balance problem (ICD -10 - R26.89) he feels is a little better off the bethanecol and is actually urinating a little less off of it. it was supposed to help the frequent urianation 01/28/2024 COPD (chronic obstru ctive pulmonary disease) (ICD-10 - J44.9) Stable. Continue current regiment. 04/29/2024 Lung nodule < 6cm on CT (ICD-10 - R91.1) no need for further treatment 07/24/2023 Elevated BUN (ICD-10 - R79.9) pending labs 07/20/2023 Acute systolic heart failure (ICD-10 - I50.21) 11/16/2023 Urinary retention (I CD-10 - R33.9) had that around the time of the surgery. have told him that i don't think it is likely to happen by stopping the bethanecol but it could 01/28/2024 LUCIO (obstructive sle ep apnea) (ICD-10 - G47.33) using machine nightly 04/29/2024 Encounter for immunization (ICD-10 - Z23) 07/24/2023 COPD (chronic obstru ctive pulmonary disease) (ICD-10 - J44.9) 07/20/2023 Vitamin B 12 deficie ncy (ICD-10 - E53.8) 07/24/2023 Pure hypercholestero lemia (ICD-10 - E78.00) stable, will continue current regiment 07/20/2023 Iron deficiency 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 (ICD-10 - D50.0) 07/24/2023 Acute systolic heart failure (ICD-10 - I50.21) stable, will continue current regiment 07/24/2023 Persistent atrial fibrillation (ICD-10 - I48.19) doing well, will continue current regiment 07/24/2023 Depression screening (ICD-10 - Z13.31) negative screen 07/24/2023 Other Total time spen t on the date of the encounter is 45 minutes including both face to face time spent and time spent reviewing documentation, and counseling the patient. PLAN OF TREATMENT Pending Test Test Name Order Date Electrocardiogram (EKG) 05/13/2016 LYME DISEASE ANTIBODIES (IGG, IGM) RHYS RN BLOT 12/08/2013 CT CHEST NO CONTRAST 01/08/2021 MRI LUMBAR SPINE NO CONTRAST 12/16/2013 CT chest wo con 02/26/2023 CT chest wo con 01/10/2021 CT chest wo con 03/14/2024 CT chest wo con 01/22/2023 MR lumbar spine wo/w con 01/31/2021 MR lumbar spine wo con 01/22/2021 Future Test Test Name Order Date CT CHEST NO CONTRAST 06/26/2021 Next Appt Details Provider Name:Gregory brown, 07/19/2024 08:00:00 AM, [address] [place] [address], [address], [phone], Provider Name:Gregory brown, 07/26/2024 01:00:00 PM, [address] [place] [address], Suite [facility], [place], [place], [phone], Provider Name:Gregory brown, 10/21/2024 08:00:00 AM, [address] [place] [address], Suite [facility], [place], [phone], Provider Name:Gregory brown, 10/27/2024 01:30:00 PM, [address] [place] [address], [place] [address], [place], [phone], Insurance Providers Payer Name Payer Address Payer Phone Subscriber Number Group Number Insured Name Patient Relationship to Insured Coverage Start Date Coverage End Date [employer] [address] [facility] [place] [id number] Duke Sheehan Self - patient is the insured [facility] [address] [place] [id number] [phone] [id number] Duke Sheehan Self - patient is the insured MEDICATIONS ADMINISTERED Medication Instructions Date of Administration Dosage Notes B12 12/18/2016 1 cm3 B12 01/06/2017 1 cm3 B12 01/20/2017 1 cm3 B12 02/05/2017 1 cm3 B12 02/23/2017 1 cm3 B12 03/17/2017 1 cm3 MEDICAL (GENERAL) HISTORY Medical History History ICD Code colonoscopy 2007, 04/25/2013 - No need for further testing per Dr. Cohen (tubular adenoma of colon) saw dr chapa. repeated ultr asound 2013 and didn't want to do anything but will repeat in 6 months Bronchitis asthma thyroid nodule decreased in size since last year 2016. biopsy09/12 was negative 08/16/2019 Cystoscopy - Dr. Nicolas creatine clearance 55 on 01/18 Surgical History Surgery Date(Month/Year) Cardioversion 03/2015
== END ==
LOC: HO.CARD 13:09
PROVIDERS: PCP Internal Medicine; Visit Provider Internal Medicine Cardiovascular Disease
DX: I50.9 Heart failure, unspecified (principal)
CPT/HCPCS: 93306

== ENCOUNTER → 2024-05-31 13:12 | Outpatient (BNV) | payer MEDICARE, OTHER, SELFPAY | PROVIDERS: PCP Internal Medicine; Visit Provider Internal Medicine | DX: I51.7 Cardiomegaly (principal); I35.0 Nonrheumatic aortic (valve) stenosis; I36.1 Nonrheumatic tricuspid (valve) insufficiency | CPT/HCPCS: 93306 ==

== ENCOUNTER 2024-07-19 08:00 | Outpatient (REF) | payer MEDICARE, OTHER, SELFPAY ==
[2024-07-19 13:46] LABS: MANUAL DIFF FLAG NO
[2024-07-19 13:53] LABS: Basophils Percent Auto 0.6 % (0-2); Eosinophils Absolute Auto 0.1 X10*3/uL (0.0-0.4); Eosinophils Percent Auto 2.9 % (0-4); Hematocrit 38.8 % (42.0-52.0); Hemoglobin 12.2 g/dl (14.0-18.0); Imm Gran Abs Auto 0.01 X10*3/uL (0.00-0.03); Imm Gran Pct Auto 0.2 % (0.0-0.4); Lymphocytes Absolute Auto 0.6 X10*3/uL (1.2-4.9); Lymphocytes Percent Auto 12.1 % (20-40); Mean Corpuscular HGB Conc 31.4 g/dl (31.0-36.0); Mean Corpuscular Hemoglobin 31.4 pg (27.0-33.0); Mean Corpuscular Volume 99.7 fL (80.0-98.0); Mean Platelet Volume 10.3 fL (9.4-12.4); Monocytes Absolute Auto 0.5 X10*3/uL (0.1-1.2); Neutrophils Absolute Auto 3.6 x10*3/uL (2.0-8.3); Neutrophils Percent Auto 74.2 % (45-73); Platelet Count 225 X10*3/uL (160-400); Red Blood Count 3.89 X10*6/uL (4.60-5.80); Red Cell Distribution Width 14.6 % (11.0-16.0); White Blood Count 4.8 X10*3/uL (4.8-10.8)
[2024-07-19 14:07] LABS: Alanine Aminotransferase 11 U/L (0-40); Albumin Level 4.4 g/dL (3.5-5.0); Alkaline Phosphatase 69 U/L (39-117); Anion Gap 13 (12-20); Aspartate Amino Transferase 27 U/L (5-37); Bilirubin Total 0.9 mg/dL (0.0-1.0); Blood Urea Nitrogen 47 mg/dL (9-16); Calcium 8.9 mg/dL (8.4-10.2); Carbon Dioxide 24 mmol/L (22-29); Chloride 109 mmol/L (96-108); Cholesterol 91 mg/dL (<200); Estimated Glomerular Filt Rate > 60; Glucose Fasting 87 mg/dL (60-99); HDL Cholesterol 46 mg/dL (>40); Iron 52 mcg/dL (45-160); LDL Cholesterol Calculated 35 mg/dL (<100); Percent Iron Saturation 17 % (15-50); Potassium 3.9 mmol/L (3.3-5.1); Sodium 142 mmol/L (135-145); Total Iron Binding Capacity 305 mcg/dL (228-428); Total Protein 8.3 g/dL (6.5-8.0); Triglycerides 51 mg/dL (<150); Unsaturated Iron Binding 253 ug/dL
[2024-07-19 14:11] LABS: Appearance Urine Clear; Color Urine Yellow; Glucose Urine UA Negative (Negative); Leukocyte Esterase Urine Negative (Negative); Nitrite Urine Negative (Negative); PH 5.5 (5.0-9.0); Specific Gravity - Urine 1.015 (1.005-1.025); Urine Blood Negative (Negative); Urine Ketones Negative (Negative); Urine Protein Negative (Neg-Trace)
[2024-07-19 14:58] LABS: Vitamin B12 563 pg/mL (200-900)
--- OUTSIDE RECORDS SUMMARY | 2024-07-19 15:38 | XMS_ITS | Continuity of Care Document ---
Author Name [facility] Organization [facility] Care Team Providers Care Rn Integrated Name Role Phone [facility] Unavailable Unavailable Problems Combined list of problems from Department of Defense and Veterans Affairs facilities. It does not include entries that were removed or entered in error. Problem Status Onset Date Problem Type Date of Resolution Comments Source Colonic Polyps Active 05/23/20 08 Condition Sep 21, 2008 Entered By: PRIYANKA LITTLE Comment: benign polyps next colo 04/17/2013 [place] AF- Atrial Fibrillation ([facility] [id number]) Active Condition [facility] Bilateral Cataracts Active Condition Dec 10, 2009 Entered By: PRIYANKA LITTLE Comment: exam 11/06/2009 [place] Bladder cancer Active Condition [facility] CAD - Coronary Artery Disease ([facility] [id number]) Active Condition Jul 11, 2020 Entered By: TEE GRAVES Comment: s/p 2 stents [facility] Carotid artery stenosis Active Condition [facility] CHF - Congestive Heart Failure ([facility]CT 96796791) Active Condition [facility] COPD - Chronic Obstructive Pulmonary Disease ([facility] [id number]) Active Condition [facility] Hyperplasia of Prostate, unspecified, without Urinary obstruction and other lowe Active Condition [place] Hypertensive heart disease with congestive heart failure (SNOMED CT 2027699) Active Condition Sep 15, 2022 Entered By: HOMERO FARIA Comment: +microalbuminuri a [place] Hypertensive retinopathy Active Condition Dec 10, 2009 Entered By: PRIYANKA LITTLE Comment: right eye [place] Non-[facility] providers Active Condition Jul 11, 2020 Entered By: TEE GRAVES Comment: PCP-Dr.Glen Resendez 2020 Entered By: TEE GRAVES Comment: Electrolysis Engineer-Dr. Albert New 2020 Entered By: TEE GRAVES Comment: Urologist-Dr. Markus Bruce 2022 Entered By: JEN DAVILA Comment: Dr. Gregory Rojo--telep [facility] # [phone] [facility] Normocytic anemia Active Condition Sep 08, 2022 Entered By: HOMERO FARIA Comment: persistent [place] Sleep Apnea ([facility]CT [id number]) Active Condition [facility] Spinal stenosis of lumbar region Active Condition Sep 21, 2008 Entered By: PRIYANKA LITTLE Comment: surgery l4-l5 decompression 06/01/08 [place] Wound Active Condition Aug 01 Entered By: TEE GRAVES Comment: Right lower leg woundFeb 2020 Entered By: TEE GRAVES Comment: Managed by [facility] [place] [facility] Diagnosis: ICD-10-CM R42 Dizziness and giddiness Active [facility] Diagnosis: ICD-10-CM Z23 Encounter for immunization Active Diagnosis [place] Diagnosis: ICD-10-CM R53.83 Other fatigue Active Diagnosis [place] Diagnosis: ICD-10-CM Z91.89 Oth personal risk factors, not elsewhere classified Active Diagnosis [place] Diagnosis: ICD-10-CM R63.4 Abnormal weight loss Active Diagnosis [place] Diagnosis: ICD-10-CM Z04.89 Encounter for examination and observation for oth reasons Active Diagnosis [place] Diagnosis: ICD-10-CM Z00.01 Encounter for general adult medical exam w abnormal findings Active Diagnosis [place] Medications Combined list of outpatient medications from [...] [facility]ONCHOS [facility] RESPIR ATORY (INHAL ATION) 05/25/2024 [id number] 3 BIENVENIDOOSVALDOLINARI O 2022 3 [place] AMLODIPINE BESYLATE 5MG TAB TAKE ONE TABLET BY MOUTH ONCE DAILY ORAL ACTIVE TEE GRAVES 2020 [place] ATORVASTATI N CA 40MG TAB TAKE ONE-HALF TABLET BY MOUTH ONCE DAILY ORAL SUSPEND ED 06/03/2025 [id number] 5 RA FREDERICK DE SOUZA 2024 45 [place] ATORVASTATI N CA 40MG TAB TAKE ONE-HALF TABLET BY MOUTH ONCE DAILY ORAL DISCONT INUED 08/20/2024 [id number] BIENVENIDOOSVALDO HERNANDESLINARI O 2023 45 [place] ATORVASTATI N CA 40MG TAB TAKE ONE-HALF TABLET BY MOUTH ONCE DAILY ORAL DISCONT INUED 08/20/2023 [id number] 4 OSVALDO FARIALINARI O 2023 23 [place] ATORVASTATI N CA 40MG TAB TAKE ONE-HALF TABLET BY MOUTH ONCE DAILY ORAL DISCONT INUED 11/12/2023 [id number] BIENVENIDO, APOLINARI O 2022 45 [place] ([facility]) BETHANECHOL CL 25MG TAB TAKE TWO TABLETS BY MOUTH TWICE DAILY FOR URINARY RETENTIO N ORAL ACTIVE 11/09/2024 [id number] 5 ARTEM FARIAARI O 2023 360 [place] BETHANECHOL CL 25MG TAB TAKE TWO TABLETS BY MOUTH TWICE DAILY FOR URINARY RETENTIO N ORAL DISCONT INUED 07/23/2024 [id number] ADDIS FARAH MD 2023 360 [facility] FERROUS SO4 325MG TAB TAKE ONE TABLET BY MOUTH ONCE DAILY ORAL ACTIVE MELANIA MCGUIRE [address] [facility] FINASTERIDE 5MG TAB TAKE ONE TABLET BY MOUTH ONCE DAILY FOR PROSTATE ORAL SUSPEND ED 12/30/2024 [id number] 5 OSVALDO FARIALINARI O 2023 90 [place] FINASTERIDE 5MG TAB TAKE ONE TABLET BY MOUTH ONCE DAILY FOR PROSTATE ORAL DISCONT INUED 12/17/2023 [id number] 4 NIVIA FARIA O 2022 90 [place] FINASTERIDE 5MG TAB TAKE ONE TABLET BY MOUTH ONCE DAILY ORAL ACTIVE ELY ,TEE 2020 [place] OLODATEROL 2.5MCG/TIOT ROPIUM 2.5MCG/ACTU AT [facility],ORAL,6 0D,4GM INHALE 2 PUFFS (1 DOSE) BY MOUTH ONCE DAILY RESPIR ATORY (INHAL ATION) SUSPEND ED 03/05/2025 [id number] 5 NIVIA FARIA O 2023 3 [place] OLODATEROL 2.5MCG/TIOT ROPIUM 2.5MCG/ACTU AT [facility],ORAL,6 0D,4GM INHALE 2 PUFFS (1 DOSE) BY MOUTH ONCE DAILY RESPIR ATORY (INHAL ATION) DISCONT INUED 05/25/2024 [id number] 4 NIVIA FARIA O 2022 3 [place] POTASSIUM CHLORIDE 10MEQ TAB,SA TAKE ONE TABLET BY MOUTH ONCE DAILY ORAL ACTIVE ELY ,TEE 2020 [place] RIVAROXABAN 15MG TAB TAKE ONE TABLET BY MOUTH ONCE DAILY TO PREVENT BLOOD CLOTS WITH FOOD DOSE REDUCTIO N:DISCON TINUE 20MG TABS) ORAL SUSPEND ED 06/24/2025 [id number] 5 NIVIA FARIA O 2024 90 [place] RIVAROXABAN 15MG TAB TAKE ONE TABLET BY MOUTH ONCE DAILY TO PREVENT BLOOD CLOTS WITH FOOD DOSE REDUCTIO N:DISCON TINUE 20MG TABS) ORAL DISCONT INUED 07/10/2024 [id number] NIVIA FARIA O 2023 90 [place] RIVAROXABAN 20MG TAB TAKE ONE TABLET BY MOUTH ONCE DAILY WITH FOOD ORAL DISCONT INUED (EDIT) 05/25/2024 [id number] BIENVENIDO, APOLINARI O 2022 90 [place] SACUBITRIL 24MG/VALSAR JAQUEZ 26MG TAB TAKE 1 TABLET BY MOUTH TWICE DAILY ORAL SUSPEND ED 03/05/2025 [id number] 5 BIENVENIDO, APOLINARI O 2023 180 [place] SACUBITRIL 24MG/VALSAR JAQUEZ 26MG TAB TAKE 1 TABLET BY MOUTH TWICE DAILY ORAL DISCONT INUED 03/22/2024 [id number] 4 BIENVENIDO, APOLINARI O 2022 180 [place] TADALAFIL 5MG TAB TAKE ONE TABLET BY MOUTH ONCE DAILY ORAL ACTIVE BIENVENIDO, APOLINARI O 2023 [place] TAMSULOSIN HCL 0.4MG CAP TAKE 1 CAPSULE BY MOUTH ONCE DAILY ORAL ACTIVE TEE GRAVES 2020 [place] TORSEMIDE 20MG TAB TAKE THREE TABLETS BY MOUTH ONCE DAILY ORAL SUSPEND ED 03/05/2025 [id number] 5 BIENVENIDO, APOLINARI O 2023 270 [place] TORSEMIDE 20MG TAB TAKE THREE TABLETS BY MOUTH ONCE DAILY ORAL DISCONT INUED 05/25/2024 [id number] BIENVENIDO, APOLINARI O 2022 270 [place] Immunizations Combined list of available immunizations from the Department of Defense and Veterans Affairs facilities. Immunization Series Date Given Administered By Site Reaction Lot Number CVX Code Drug Swing Driver Status Comments Source COVID-19 (MODERNA), MRNA, LNP-S, PF, 50 MCG/0.5 ML (AGES 12+ YEARS) 2023 CHRYSTAL DAVILA RIGHT DELTO ID [id number] 312 complet ed [place] PNEUMOCOCCAL CONJUGATE PCV20, POLYSACCHARID E [id number] CONJUGATE, ADJUVANT, PF 2023 CHRYSTAL DAVILA LEFT DELTO ID [id number] 216 complet ed [place] INFLUENZA, UNSPECIFIED FORMULATION 2023 88 complet ed [facility] RSV, BIVALENT, PROTEIN SUBUNIT RSVPREF, DILUENT RECONSTITUTED , 0.5 ML, PF 2022 GIOVANNICHRYSTAL Lonny Zhu RIGHT DELTO ID [id number] 305 complet ed [id number] EXP. [id number] EXP [facility] [place] COVID-19 (MODERNA), MRNA, LNP-S, PF, 50 MCG/0.5 ML (AGES 12+ YEARS) 1 2022 GIOVANNICHRYSTAL LEFT DELTO ID [id number] 312 complet ed [place] INFLUENZA, UNSPECIFIED FORMULATION 2022 88 complet ed [facility] COVID-19 (MODERNA), MRNA, LNP-S, BIVALENT BOOSTER, PF, 50 MCG/0.5 ML OR 25MCG/0.25 ML DOSE 1 2022 FLORES LOZA LEFT ARM [id number] 229 complet ed [facility] [place] DOSE 3 2020 207 complet ed MOD; [id number]; 2 [facility] [place] INFLUENZA VACCINE, QUADRIVALENT, ADJUVANTED 2020 205 complet ed [facility] [place] COVID-19 (MODERNA), MRNA, LNP-S, PF, 100 MCG/0.5 ML DOSE 2 2020 207 complet ed MOD; [id number]; 1 [facility] [place] COVID-19 (MODERNA), MRNA, LNP-S, PF, 100 MCG/0.5 ML DOSE 1 2020 207 complet ed MOD; [id number]; 07/08/202 1 [place] INFLUENZA, UNSPECIFIED FORMULATION 2019 [...] Reference Range Date Interpretation Specimen Comments Source TSH THYROTROPIN [UNITS/VOLU ME] IN SERUM OR PLASMA 2.33 u[IU]/ mL 0.35 - 5.00 02/02 Specimen Type: SERUM No comment entered. Ordering Provider: NIKKI FARIA Report Released Date/Time: Feb 03, 2024 11:33 AM Reporting Lab: [facility] [address] [facility] [address] Performing Lab: [facility] [place] [facility] [address] [facility] [address] [facility] VITAMIN B12 COBALAMIN (VITAMIN B12) [MASS/VOLUM E] IN SERUM OR PLASMA 472 pg/mL 200 - 900 02/02 Specimen Type: SERUM No comment entered. Ordering Provider: NIKKI FARIA Report Released Date/Time: Feb 03, 2024 11:33 AM Reporting Lab: [facility] [place] [facility] [address] [facility] [address] Performing Lab: [facility] [place] [facility] [address] [facility] [address] [facility]TRN [facility]USE [facility] VITAMIN D (25-OH) 25-HYDROXYV ITAMIN D3 [MASS/VOLUM E] IN SERUM OR PLASMA 30 ng/mL 20 - 50 02/02 Specimen Type: SERUM No comment entered. Ordering Provider: NIKKI FARIA Report Released Date/Time: Feb 03, 2024 11:33 AM Reporting Lab: [facility] [place] [facility] [address] [facility] [address] Performing Lab: [facility] [address] [facility] [address] [facility]ITAL[facility] FOLATE (WROX) FOLATE [MASS/VOLUM E] IN SERUM OR PLASMA 6.28 ng/mL 5.2 02/02 Specimen Type: SERUM No comment entered. Ordering Provider: NIKKI FARIA Report Released Date/Time: Feb 03, 2024 11:34 AM Reporting Lab: [facility]TR[facility] [place] [facility] [address] [facility] [address] Performing Lab: [facility]ENTERTRN [facility]ITALUSETS [facility] [address] [address] [facility] FERRITIN FERRITIN [MASS/VOLUM E] IN SERUM OR PLASMA 110 ng/mL 20 - 300 02/02 Specimen Type: SERUM No comment entered. Ordering Provider: NIKKI FARIA Report Released Date/Time: Feb 03, 2024 11:34 AM Reporting Lab: [facility]ENTERTRN [place] [facility] [address] [facility] [address] Performing Lab: [facility]ENTERTRN [facility]ITALUSETS [facility] [address] [facility] [address] [facility] LIPID PANEL FASTING CHOLESTEROL [MASS/VOLUM E] IN SERUM OR PLASMA 98 mg/dL 02/02 Specimen Type: SERUM No comment entered. Ordering Provider: NIKKI FARIA Report Released Date/Time: Feb 03, 2024 11:33 AM Reporting Lab: [facility] [place] [facility] [address] [facility] [address] Performing Lab: [facility]ENTERTRN [facility]ITALUSETS [facility] [address] [facility] [address] [facility]TRN [facility]ITALUSE [facility] LIPID PANEL FASTING TRIGLYCERID E [MASS/VOLUM E] IN SERUM OR PLASMA 65 mg/dL 0 - 150 02/02 Specimen Type: SERUM No comment entered. Ordering Provider: NIKKI FARIA Report Released Date/Time: Feb 03, 2024 11:33 AM Reporting Lab: [facility] CENTERTRN [facility]ITALUSECAP[facility] [address] [facility] [address] Performing Lab: [facility] CENTERTRN [facility]PITALUSECAP[facility] [address] [facility] [address] [facility] LIPID PANEL FASTING CHOLESTEROL IN LDL [MASS/VOLUM E] IN SERUM OR PLASMA BY CALCULATION 41 mg/dL 0 - 129 02/02 Specimen Type: SERUM No comment entered. Ordering Provider: NIKKI FARIA Report Released Date/Time: Feb 03, 2024 11:33 AM Reporting Lab: [facility] CENTERTRN [facility]ITALUSECAP[facility] [address] [facility] [address] Performing Lab: [facility]RL TRN [facility] HOSPITALUSETS [facility] [address] [facility] [address] [facility] LIPID PANEL FASTING CHOLESTEROL .TOTAL/CHOL ESTEROL IN HDL [MASS RATIO] IN SERUM OR PLASMA 2.2 02/02 Specimen Type: SERUM No comment entered. Ordering Provider: NIKKI FARIA Report Released Date/Time: Feb 03, 2024 11:33 AM Reporting Lab: [facility] CENTERTRN [facility]OSPITALUSETS [facility] [address] [facility] [address] Performing Lab: [facility]ENTERTRN [facility]OSPITALUSETS [facility] [address] [facility] [address] [facility] LIPID PANEL FASTING CHOLESTEROL IN HDL [MASS/VOLUM E] IN SERUM OR PLASMA 44 mg/dL 40 - 60 02/02 Specimen Type: SERUM No comment entered. Ordering Provider: NIKKI FARIA Report Released Date/Time: Feb 03, 2024 11:33 AM Reporting Lab: [facility] [place] [facility] [address] [facility] [address] Performing Lab: [facility] [place] [place] [facility] [address] [facility] [address] [facility] [place] [facility] BASIC METABOLIC PANEL (fasting) UREA NITROGEN [MASS/VOLUM E] IN SERUM OR PLASMA 44 mg/dL 7 - 25 02/02 H Specimen Type: SERUM No comment entered. Ordering Provider: NIKKI FARIA Report Released Date/Time: Feb 03, 2024 11:33 AM Reporting Lab: [facility] [place] [facility] [address] [facility] [address] Performing Lab: [facility] [place] [facility] [address] [facility] [address] [facility] [place] [facility] BASIC METABOLIC PANEL (fasting) GLUCOSE [MASS/VOLUM E] IN SERUM OR PLASMA 91 mg/dL 65 - 100 02/02 Specimen Type: SERUM No comment entered. Ordering Provider: NIKKI FARIA Report Released Date/Time: Feb 03, 2024 11:33 AM Reporting Lab: [facility] [place] [facility] [address] [facility] [address] Performing Lab: [facility] [place] [facility] [address] [facility] [address] [facility] [place] [facility] BASIC METABOLIC PANEL (fasting) SODIUM [MOLES/VOLU ME] IN SERUM OR PLASMA 137 mmol/L 135 - 145 02/02 Specimen Type: SERUM No comment entered. Ordering Provider: NIKKI FARIA Report Released Date/Time: Feb 03, 2024 11:33 AM Reporting Lab: [facility] [place] [facility] [address] [facility] [address] Performing Lab: [facility] [place] [facility] [address] [facility] [address] [facility] [place] [place] [facility] BASIC METABOLIC PANEL (fasting) POTASSIUM [MOLES/VOLU ME] IN SERUM OR PLASMA 4.1 mmol/L 3.5 - 5.0 02/02 Specimen Type: SERUM No comment entered. Ordering Provider: NIKKI FARIA Report Released Date/Time: Feb 03, 2024 11:33 AM Reporting Lab: [facility] [place] [facility] [address] [facility] [address] Performing Lab: [facility]ITALUSE[facility] [address] [facility] [address] [facility]ITALUSE [facility] BASIC METABOLIC PANEL (fasting) CHLORIDE [MOLES/VOLU ME] IN SERUM OR PLASMA 105 mmol/L 100 - 110 02/02 Specimen Type: SERUM No comment entered. Ordering Provider: NIKKI FARIA Report Released Date/Time: Feb 03, 2024 11:33 AM Reporting Lab: [facility] CENTERTRN [facility]ITALUSE[address] [address] Performing Lab: [facility] TRN [facility]PITALUSETS [address] [address] [facility] CENTERTRN [facility] HOSPITALUSE [facility] BASIC METABOLIC PANEL (fasting) CARBON DIOXIDE, TOTAL [MOLES/VOLU ME] IN SERUM OR PLASMA 24 meq/L 20 - 30 02/02 Specimen Type: SERUM No comment entered. Ordering Provider: NIKKI FARIA Report Released Date/Time: Feb 03, 2024 11:33 AM Reporting Lab: [facility] CENTERTRN [facility]ITALUSE[address] [address] Performing Lab: [facility] W[facility]OSPITALUSETS [address] [address] [facility] CENTERTRN [facility] HOSPITALUSE [facility] BASIC METABOLIC PANEL (fasting) CREATININE [MASS/VOLUM E] IN SERUM OR PLASMA 1.12 mg/dL 0.50 - 1.40 02/02 Specimen Type: SERUM No comment entered. Ordering Provider: NIKKI FARIA Report Released Date/Time: Feb 03, 2024 11:33 AM Reporting Lab: [facility]ITALUSE[address] [address] Performing Lab: [facility] [address] [facility]N [facility]OSPITALUSE [facility] BASIC METABOLIC PANEL (fasting) GLOMERULAR FILTRATION RATE/1.73 SQ M.PREDICTED [VOLUME RATE/AREA] IN SERUM, PLASMA OR BLOOD BY CREATININE- BASED FORMULA (CKD-EPI 2020) 63 mL/min 60 02/02 Specimen Type: SERUM No comment entered. Ordering Provider: NIKKI FARIA Report Released Date/Time: Feb 03, 2024 11:33 AM Reporting Lab: [facility] CENTERTRN [place] [facility] [address] [facility] [address] Performing Lab: [facility]RINFIR[facility] HOSPITALN [address] [address] [facility] LIVER FUNCTION PROTEIN [MASS/VOLUM E] IN SERUM OR PLASMA 7.4 g/dL 6.0 - 8.3 02/02 Specimen Type: SERUM No comment entered. Ordering Provider: NIKKI FARIA Report Released Date/Time: Feb 03, 2024 11:33 AM Reporting Lab: [facility] HOSPITALN [facility]ITALUSECAP[facility] [address] [facility] [address] Performing Lab: [facility] HOSPITALN [facility]PITALUSECAP[facility] [address] [facility] [address] [facility] LIVER FUNCTION ALBUMIN [MASS/VOLUM E] IN SERUM OR PLASMA 4.1 g/dL 3.5 - 5.0 02/02 Specimen Type: SERUM No comment entered. Ordering Provider: NIKKI FARIA Report Released Date/Time: Feb 03, 2024 11:33 AM Reporting Lab: [facility] CENTERTRN [facility]PITALUSE[address] [address] Performing Lab: [facility]RINFIR[facility]AC HOSPITALN [facility]ITALUSE[address] [address] [facility] LIVER FUNCTION ALKALINE PHOSPHATASE [ENZYMATIC ACTIVITY/VO LUME] IN SERUM OR PLASMA 64 U/L 40 - 150 02/02 Specimen Type: SERUM No comment entered. Ordering Provider: NIKKI FARIA Report Released Date/Time: Feb 03, 2024 11:33 AM Reporting Lab: [facility] [place] [facility] [address] [facility] [address] Performing Lab: [facility] [place] [facility] [address] [facility] [address] [facility] [place] [facility] LIVER FUNCTION ASPARTATE AMINOTRANSF ERASE [ENZYMATIC ACTIVITY/VO LUME] IN SERUM OR PLASMA 17 U/L 5 - 34 02/02 Specimen Type: SERUM No comment entered. Ordering Provider: NIKKI FARIA Report Released Date/Time: Feb 03, 2024 11:33 AM Reporting Lab: [facility] [place] [place] [facility] [address] [facility] [address] Performing Lab: [facility] [place] [facility] [address] [facility] [address] [facility] [place] [facility] LIVER FUNCTION ALANINE AMINOTRANSF ERASE [ENZYMATIC ACTIVITY/VO LUME] IN SERUM OR PLASMA 7 U/L 02/02 Specimen Type: SERUM No comment entered. Ordering Provider: NIKKI FARIA Report Released Date/Time: Feb 03, 2024 11:33 AM Reporting Lab: [facility] [place] [facility] [address] [facility] [address] Performing Lab: [facility] [place] [facility] [address] [facility] [address] [facility] LIVER FUNCTION BILIRUBIN.T OTAL [MASS/VOLUM E] IN SERUM OR PLASMA 0.9 mg/dL 0.2 - 1.2 02/02 Specimen Type: SERUM No comment entered. Ordering Provider: NIKKI FARIA Report Released Date/Time: Feb 03, 2024 11:33 AM Reporting Lab: [facility] [place] [facility] [address] [facility] [address] Performing Lab: [facility] [place] [facility] [address] [facility] [address] [facility] [place] [facility] HEMOGLOBI N A1C PANEL HEMOGLOBIN A1C/HEMOGLO BIN.TOTAL [...] Ref: [email or web address] Ordering Provider: NIKKI FARIA Report Released Date/Time: Feb 03, 2024 11:33 AM Reporting Lab: [facility] [place] [facility] [address] [facility] [address] Performing Lab: [facility] [place] [facility] [address] [facility] [address] [facility] [place] [facility] CALCIUM CALCIUM [MASS/VOLUM E] IN SERUM OR PLASMA 9.2 mg/dL 8.5 - 10.2 02/02 Specimen Type: SERUM No comment entered. Ordering Provider: NIKKI FARIA Report Released Date/Time: Feb 03, 2024 11:33 AM Reporting Lab: [facility] [place] [facility] [address] [facility] [address] Performing Lab: [facility] [place] [facility] [address] [facility] [address] [facility] [place] [facility] Vital Signs Combined list of inpatient and outpatient Vital Signs from Department of Defense and Veterans Affairs, ranging from 12 months to all on record, depending upon the facility. Vital Sign Value Date Comments Source SYSTOLIC BLOOD PRESSURE 120 05/25/20 24 13:39:34 [facility] [place] [facility] DIASTOLIC BLOOD PRESSURE 56 024 13:39:34 [facility] [place] [facility] PULSE OXIMETRY 90 05/25/2024 13:39:34 [facility] [place] [facility] WEIGHT 162.8 05/25/2024 13:39:34 [facility] [place] [facility] BMI 22kg/m2 05/25/2024 13:39:34 [facility] [place] [facility] PAIN 0 05/25/2024 13:39:34 [facility] [place] [facility] HEIGHT 73 05/25/2024 13:39:34 [facility] [place] [facility] DIASTOLIC BLOOD PRESSURE 66 08/25/ 024 13:26:26 [facility] [place] [facility] [place] En[facility] [id number] 03/20 [facility] [place] [id number] 04/10 [facility] [place] [id number] 04/20 [facility] Out[facility] Encounter [id number] 05/04 [facility] [place] OFF/OP EST MAY X REQ PHY/QHP [id number] Diagnos is: ICD-10- CM Z23 Encount er for immuniz ation<b r/> GIOVANNI,L YUE H 05/06 [place] [facility] QNHP OL DIG ASSMT&MGMT 5-10 [id number] Diagnos is: ICD-10- CM Z04.89 Encount er for examina tion and observa tion for oth reasons
DIMA SUAZO Leonides 05/11 [facility] OFFICE O/P EST MOD 30-39 MIN [id number] Diagnos is: ICD-10- CM Z00.01 Encount er for general adult medical exam w abnorma l finding s
Lonny FARIA 05/25 [facility] Outpatient Encounter [id number] 05/27 [facility] OFF/OP EST OCTOBER X REQ PHY/QHP [id number] Diagnos is: ICD-10- CM Z23 Encount er for immuniz ation<b r/> GIOVANNI,L YUE H 06/02 [facility] QNHP OL DIG ASSMT&MGMT 5-10 [id number] Diagnos is: ICD-10- CM Z04.89 Encount er for examina tion and observa tion for oth reasons
BOBO VERDUGO 06/11 [facility] Outpatient Encounter [id number] 06/19 [facility] Encounter [id number] 07/03 [facility] QNHP OL DIG ASSMT&MGMT 5-10 [id number] Diagnos is: ICD-10- CM Z04.89 Encount er for examina tion and observa tion for oth reasons
REYNOSO,AYDEN HARDIK 07/09 [facility] [place] QNHP OL DIG ASSMT&MGMT 5-10 [id number] Diagnos is: ICD-10- CM Z04.89 Encount er for examina tion and observa tion for oth reasons
GLEN,KIM IE 07/15 [facility] 30 MIN [id number] Diagnos is: ICD-10- CM R63.4 Abnorma l weight loss
Lonny FARIA 08/25 [facility] En[facility] [id number] 08/26 [facility] Out[facility] Encounter [id number] 09/23 [facility] Out[facility] Encounter [id number] 10/22 [facility] Out[facility] Encounter [id number] 11/02 [facility] Out[facility] Encounter [id number] 11/05 [facility] Outpatient Encounter [id number] 11/05 [facility] Out[facility] Encounter [id number] 11/10 [facility] Outpatient Encounter [id number] 11/15 [facility] [place] OFF[place] O/P EST MOD 30 MIN [id number] Diagnos is: ICD-10- CM Z91.89 Oth persona l risk factors , not elsewhe re classif ied<br/ > BIENVENIDO,A 11/24 [place] Outpatient Encounter [id number] BIENVENIDO,A POLI11/24 [place] OFFICE O/P EST MOD 30 MIN [id number] Diagnos is: ICD-10- CM R53.83 Other fatigue
BIENVENIDO,A POLINARIO 02/02 [place] [facility] Outpatient Encounter [id number] 02/02 [facility] [place] Outpatient Encounter [id number] Diagnos is: ICD-10- CM R53.83 Other fatigue
BIENVENIDO,A POLINARIO 02/04 [place] [facility] Out[facility] Encounter [id number] 02/17 [facility] Outpatient Encounter [id number] 04/29 [facility] Outpatient Encounter [id number] 05/08 [facility] [place] [place] OFF/OP EST OCTOBER X REQ PHY/QHP [id number] Diagnos is: ICD-10- CM Z23 Encount er for immuniz ation<b r/> GIOVANNIMaribel YUE H 05/16 [facility] Outpatient Encounter [id number] 05/16 [facility] [place] OFFICE O/P EST MOD 30 MIN [id number] 1BY. [id number] Diagnos is: ICD-10- CM R42 Dizzine ss and giddine ss
Lonny FARIA 05/25 [facility] SELF CARE MNGMENT TRAINING [id number] 1. Diagnos is: ICD-10- CM R42 Dizzine ss and giddine ss
VIC SANTOS M 05/31 [facility] Outpatient Encounter [id number] 06/01 [facility] [place] [place] [facility] Outpatient Encounter [id number] 06/21 [facility] [place] [place] [facility] Social History Combined list of available smoking, tobacco, and other social history from Department of Defense and Veterans Affairs facilities. 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 USER 05/16/2024 [place] History of tobacco use MD-TOBACCO QUIT 15 YRS OR MORE 05/16/2024 [place] History of tobacco use MD-TOBACCO FORMER USER 05/06/2023 [place] History of tobacco use MD-TOBACCO FORMER USER 05/28/2022 [place] History of tobacco use MD-TOBACCO FORMER USER 07/11/2020 [place] History of tobacco use QUIT TOBACCO USE 1-7 YEARS AGO 03/29/2009 stopped tobacco 5 years ago [place] History of tobacco use QUIT TOBACCO USE 1-7 YEARS AGO 03/09/2008 [place] History of tobacco use QUIT TOBACCO USE 1-7 YEARS AGO 08/19/2007 [place] History of tobacco use QUIT TOBACCO USE 1-7 YEARS AGO 08/13/2006 stopped tobacco 4 years ago [place] History of tobacco use QUIT TOBACCO USE 1-7 YEARS AGO 08/08/2005 [place] History of tobacco use QUIT TOBACCO USE IN PAST YEAR 03/06/2005 Pt quit 2002 [place] History of tobacco use QUIT TOBACCO USE IN PAST YEAR 12/24/2004 [place] History of tobacco use HISTORY OF SMOKING 07/30/2004 Quit 3 years ago [place] Advance Directives List of completed, amended, or rescinded Advance Directives on record at Department of [facility] Affairs facilities. An actual copy of the Directive is not included. Date Advance Directive Provider Source 03/15/2008 ADVANCE DIRECTIVE GERARDO MARSH [facility]
--- OUTSIDE RECORDS SUMMARY | 2024-07-19 15:38 | XMS_ITS | Encounter Summary ---
Author Name [place] Address [address] [place] [id number] Care Team Providers Care Hamper Maker Name Role Phone KARRI FARIA Primary Care [...] Patient's Relationship to Policy [employer] ([id number]) PRESCRIPT ION [facility] TIES Jan 05, 2009 [id number] [phone] NEVERS,MICHAELA SEPH PATIENT [facility] MEDICARE SUPPLEMEN TAL MA IND Jun 29, 2016 MEDICAR E SUPPLEM E [id number] NEVERSMICHAELA VINOD PATIENT MEDICARE (WNR) MEDICARE (M) PART A October 28, 1999 PART A [id number] ADAMS SHEEHAN JR PATIENT MEDICARE ([place]) MEDICARE (M) PART B October 28, 1999 PART B [id number] ADAMS SHEEHAN JR PATIENT UMR MEDIGAP PLAN C [facility] TIES Apr 05, 2007 [id number] NEVERS,MICHAELA SEPH PATIENT Selected Encounter This section includes the information on record at [place] for the Encounter. Date/Time Encounter Type Encounter Description Reason Provider Source Aug 25, 2023 01:00 PM OFFICE O/P EST MOD 30 MIN PRIMARY CARE/MEDICINE ICD-10-CM R63.4 Abnormal weight loss CARLOS FARIA Padmini Encounter Template Text not used by [place] Assessments - Encounter Diagnoses This section includes the primary and secondary diagnoses documented for the Encounter. Date/Time Primary/Secondary Diagnosis Diagnosis Name Provider Source Sep 03, 2023 04:12 PM PRIMARY Abnormal weight loss BIENVENIDO,ARTEM DUDLEY [facility] Sep 03, 2023 04:12 PM SECONDARY Chronic obstructive pulmonary disease, unspecified BIENVENIDO,ARTEM DUDLEY [facility] Sep 03, 2023 04:12 PM SECONDARY Heart failure, unspecified BIENVENIDO,ARTEM DUDLEY [facility] Plan of Treatment: Future Appointments (+ 6 months) and Future Tests (+/- 45 days) The Plan of Treatment section includes future care activities for the patient from all [place] [facility] This section includes future appointments and future orders which are active, pending or scheduled. Future Appointments This section includes appointments that were scheduled to occur 6 months from the date of the Encounter, up to a maximum of 20 appointments. The data comes from all [place] treatment facilities. Appointment Date/Time Appointment Type Appointme nt Facility Name Oct 23, 2023 10:00 AM AMBULATORY - MEDICINE [facility] November 25, 2023 01:00 PM AMBULATORY MEDICINE [facility] Feb 03, 2024 10:30 AM AMBULATORY - MEDICINE [facility] Social History: Smoking Status (Most current) and Tobacco Use (All prior to encounter date) This section includes the most current, and the historical, smoking and tobacco- related health factors from the [place] facility where the Encounter took place. Current Smoking Status This section includes the most current smoking, or tobacco-related health factor, from the [place] facility where the Encounter took place. Date/Time Current Smoking Status Allie figueroa May 06, 2023 01:41 PM VA-TOBACCO FORMER USER [facility] Tobacco Use History This section includes a history of the smoking, or tobacco-related health factors, that were collected on or before the date of the Encounter. The data comes from the [place] facility where the Encounter took place. Date/Time Smoking Status/Tobacco Use Comment F acility May 06, 2023 01:41 PM VA-TOBACCO QUIT 15 YRS OR MORE [facility] May 28, 2022 01:30 PM VA-TOBACCO FORMER USER [facility] May 28, 2022 01:30 PM VA-TOBACCO QUIT 15 YRS OR MORE [facility] Jul 11, 2020 11:00 AM VA-TOBACCO FORMER USER [facility] Jul 11, 2020 11:00 AM VA-TOBACCO QUIT 15 YRS OR MORE [facility] Mar 29, 2009 02:00 PM QUIT TOBACCO USE 1 -7 YEARS AGO stopped tobacco 5 years ago [facility] Mar 09, 2008 09:00 AM QUIT TOBACCO USE 1 -7 YEARS AGO [facility] Aug 19, 2007 01:00 PM QUIT TOBACCO USE 1 -7 YEARS AGO [facility] Aug 13, 2006 01:30 PM QUIT TOBACCO USE 1 -7 YEARS AGO stopped tobacco 4 years ago [facility] Aug 08, 2005 08:30 AM QUIT TOBACCO USE 1 -7 YEARS AGO [facility] Mar 06, 2005 01:30 PM QUIT TOBACCO USE IN PAST Y EAR Pt quit 2002 [facility] Dec 24, 2004 03:00 PM QUIT TOBACCO USE IN PAST YEAR [facility] Jul 30, 2004 02:00 PM HISTORY OF SMOKING Quit 3 years ago [facility] Advance Directives: All historical and current Section Date Range: From patient's date of to the date document was created. This section includes ALL of a patient's completed or amended [place] Advance and Rescinded Directives. The entries below indicate that a directive exists for the patient, but an actual copy is not included with this document. The data comes from all [facility]. Date Advance Directives Provider Source Mar 15, 2008 ADVANCE DIRECTIVE GERARDO MARSH [place] [facility]EINA CABRERA [facility] Encounter Notes: All associated encounter notes This [...] full rights to use it throughout the [place] system. PRIMARY SCREEN RESULT: The Primary Screen [...] LPN LPN Signed: 08/25/2023 13:31 RUBY MERCHANT [facility] Aug 25, 2023 08:36 AM PHYSICIAN NOTE: [...] Wound Right lower leg wound [facility] 4. Carotid artery stenosis 5. CHF - Congestive Heart Failure ([facility] [id number]) 6. CAD - Coronary Artery Disease ([facility] [id number]) s/p 2 stents 7. COPD - Chronic Obstructive Pulmonary Disease ([facility] [id number]) 8. AF- Atrial Fibrillation ([facility] [id number]) 9. Sleep Apnea ([facility] [id number]) 10. Non-VA providers PCP-Dr.G[place] Rojo Unemployment Insurance Hearing Officer-Dr.Nirav Partida Urologist-Dr. Markus Rojo--telephone # [phone] 11. Bilateral Cataracts exam 11/06/2009 12. Hypertensive retinopathy right eye 13. Colonic Polyps benign polyps next colo 04/17/2013 14. Hyperplasia of Prostate, unspecified, without Urinary obstruction and other 15. Spinal stenosis of lumbar region surgery l4-l5 decompression 06/01/08 16. Hypertensive heart disease with congestive heart failure (SNOMED CT 2812751) +microalbuminuria PHYSICAL EXAMINATION/DIRECTED EXAM: BP:146/66 (08/25/2023 13:26) [...] of using physical therapy (whether its been [facility] or the [facility] to [...] MD PHYSICIAN Signed: 09/03/2023 16:12 KARRI FARIA [facility]
--- OUTSIDE RECORDS SUMMARY | 2024-07-19 15:39 | XMS_ITS | Continuity of Care Document ---
Author Organization [facility] Address [address] [place] [address]- Care Team Providers Care Network Coordinator Name Role Phone Gregory Trimble MD Primary Care Physician [phone] [place] [facility] [place]): 06/16/24 - 07/16/24 [facility] [address] [place] [address] Attending Physician: Jose Daniel Boswell Admitting Physician: Jose Daniel Boswell Referring Physician: Jose Daniel Boswell Encounter Type: Triage Allergies, Adverse Reactions, Alerts No Known Medication Allergies Immunizations Given and Recorded Vaccine Date Status Refusal Reason influenza virus vaccine, inactivated 04/30/17 Give n Medications amLODIPine 5 mg oral tablet 5 mg, 1, tablet, By Mouth, Daily, # 30 tablet, Refills 0, Tot. Refills 0, Maintenance, 05/15/17 10:04:37 AM EST, Route to Pharmacy Electronically, [facility] 3 Start Date: 05/15/17 Stop Date: 06/14/17 Status: Ordered Quantity: 30.0 Unit: tablet Repeat number: 1 atorvastatin 80 mg oral tablet = 80 mg, By Mouth, Daily at bedtime, # 30 tablet, 0 Refills, Maintenance, Tablet, Route to PharmacyElectronically, [id number], [facility] 3 Start Date: 05/03/17 Status: Ordered Quantity: 30.0 Unit: tablet Repeat number: 1 Ferrous Sulfate EC Refills 0, Maintenance, 06/18/21 11:22:00 AM EST, Partial fill upon patient request if the prescription is for a schedule II opioid drug. Start Date: 06/18/21 Status: Ordered Repeat number: 1 finasteride 5 mg oral tablet 1 tablet = 5 mg, By Mouth, Daily, # 30 tablet, 0 Refills, Maintenance, 05/15/17 10:04:50 AM EST, Tablet, [facility] 3 Start Date: 05/15/17 Stop Date: 06/14/17 Status: Ordered Quantity: 30.0 Unit: tablet Repeat number: 1 Flomax 0.4 mg oral capsule 0.4 mg, 1, capsule, By Mouth, Daily, # 30 capsule, Refills 0, Tot. Refills 0, Maintenance, 05/03/17 9:53:47 AM EST, Route to Pharmacy Electronically, [facility] 3 Start Date: 05/03/17 Status: Ordered Quantity: 30.0 Unit: capsule Repeat number: 1 fluticasone 50 mcg/inh nasal spray SHAKE LQ AND U 1 SPR IEN QD Start Date: 05/07/17 Status: Ordered Repeat number: 1 furosemide 20 mg oral tablet 20 mg, By Mouth, Daily, # 30 tablet, Refills 0, Tot. Refills 0, Maintenance, 05/03/17 9:01:26 AM EST, Route to Pharmacy Electronically, [facility] 3 Start Date: 05/03/17 Status: Ordered Quantity: 30.0 Unit: tablet Repeat number: 1 potassium chloride 10 mEq oral capsule, extended release 0 Refills, Maintenance, 06/18/21 11:21:00 AM EST, Partial fill upon patient request if the prescription is for a schedule II opioid drug. Start Date: 06/18/21 Status: Ordered Repeat number: 1 ProAir HFA 90 mcg/inh inhalation aerosol with adapter 180 mcg, 2, puffs, Inhalation, 4 times a day, # 1 each, Refills 0, Tot. Refills 0, Maintenance, 05/03/17 9:03:27 AM EST, Inhaler, Route to Pharmacy Electronically, [id number], [facility] 3 Start Date: 05/03/17 Status: Ordered Quantity: 1.0 Unit: each Repeat number: 1 Rolling walker Rolling walker, See Instructions, # 1 each, Refills 0, Tot. Refills 0, Maintenance, 1 victorino pruett, 05/03/17 2:01:19 PM EST, Compound Start Date: 05/03/17 Status: Ordered Quantity: 1.0 Unit: each Repeat number: 1 Stiolto Respimat Inhalation, Every 24 hours, 0 Refills, Maintenance, 06/18/21 11:21:00 AM EST, Partial fill upon patient request if the prescription is for a schedule II opioid drug. Start Date: 06/18/21 Status: Ordered Repeat number: 1 Ventolin 90 mcg Inhaler Inhalation, prn, Refills 0, Maintenance, 09/03/18 3:29:58 PM EST Start Date: 09/03/18 Status: Ordered Repeat number: 1 Xarelto 20 mg oral tablet 1 tablet = 20 mg, By Mouth, Daily in PM, # 30 tablet, 0 Refills, Maintenance, 11/03/18 10:28:36 AM EDT, Tablet Start Date: 11/03/18 Status: Ordered Quantity: 30.0 Unit: tablet Repeat number: 1 Zinc = 140 mg, By Mouth, Daily, 0 Refills, Maintenance, 06/18/21 11:21:00 AM EST, Partial fill upon patient request if the prescription is for a schedule II opioid drug. Start Date: 06/18/21 Status: Ordered Repeat number: 1 Problem List Condition Confirmation Course Effective Dates Status Health St atus Informant Atrial fibrillation and flutter Confirmed Active COPD (chronic obstructive pulmonary disease) Confirmed Active CHF (congestive heart failure) Confirmed Active CAD (coronary artery disease) Confirmed Active Carotid disease, bilateral Confirmed Active HLD (hyperlipidemia) Confirmed Active HTN (hypertension) Confirmed Active Social History Social History Type Response Smoking Status Former smoker entered on: 05/08/17 Sex Sex Representation Male (finding) Patient Care team information Care Team Personnel Name: Alise Gay RN Position: [facility] AMB Nurse Member Role: Primary Care Nurse Name: Levon Zambrano RN Position: [facility] ED RN W/OE and Tasks Member Role: Primary Care Nurse Name: Gregory Trimble MD Position: Reference Physician Member Role: PCP Address: [address] [place] [address] [place] [address]- Telecom: [phone] Name: Keyana Espinoza RN Position: [facility] RN Member Role: Primary Care Nurse Name: Roger Summers RN Position: S RN Member Role: Primary Care Nurse Name: Diamond Hernadnez RN Position: [facility] RN Member Role: Primary Care Nurse Name: Ankush Bolton RN Position: [facility] RN Member Role: Primary Care Nurse Name: Donna Costello RN Position: [facility] Onco RN Member Role: Primary Care Nurse Care Team Related Persons Name: JOSHUA SHEEHAN Name: JEN DELEON Insurance Providers Guarantor name: ADAMS SHEEHAN Health Plan Information #: 1 Payer: MEDICARE PART B OUTPT Member Number: NA Policy Number: NA Group Number: NA Health Plan Information #: 2 Payer: [facility] Member Number: NA Policy Number: NA Group Number: NA Health Plan Information #: 3 Payer: [employer] [facility] Member Number: NA Policy Number: NA Group Number: NA Health Plan Information #: 4 Payer: [employer] [facility] [employer] Member Number: NA Policy Number: NA Group Number: NA
--- OUTSIDE RECORDS SUMMARY | 2024-07-19 15:39 | XMS_ITS | Encounter Summary ---
Author Name [facility] [place] Organization [facility] [place] Address [address] [place] [id number] Care Team Providers Care Rock Cutter Name Role Phone KARRI FARIA Primary Care [...] Patient's Relationship to Policy [employer] ([id number]) PRESCRIPT ION [facility] Jan 05, 2009 [id number] NEVERS,MICHAELA SEPH PATIENT [facility] MEDICARE SUPPLEMEN TAL [place] IND Jun 29, 2016 MEDICAR E SUPPLEM E [id number] NEVERSMICHAELA VINOD PATIENT MEDICARE (WNR) MEDICARE (M) PART A October 28, 1999 PART A [id number] ADAMS SHEEHAN JR PATIENT MEDICARE (WN) MEDICARE (M) PART B October 28, 1999 PART B [id number] ADAMS SHEEHAN JR PATIENT UMR MEDIGAP PLAN C [facility] Apr 05, 2007 [id number] NEVERS,MICHAELA SEPH PATIENT Selected Encounter This section includes the information on record at [place] for the Encounter. Date/Time Encounter Type Encounter Description Reason Provider Source November 25, 2023 01:00 PM OFFICE O/P EST MOD 30 MIN PRIMARY CARE/MEDICINE ICD-10-CM Z91.89 Ot personal risk factors, not elsewhere classified CARLOS FARIA IHPadmini Encounter Template Text not used by [place] Assessments - Encounter Diagnoses This section includes the primary and secondary diagnoses documented for the Encounter. Date/Time Primary/Secondary Diagnosis Diagnosis Name Provider Source November 26, 2023 10:42 AM PRIMARY Oth personal risk factors, not elsewhere classified ARTEM FARIA [facility] Plan of Treatment: Future Appointments (+ 6 months) and Future Tests (+/- 45 days) The Plan of Treatment section includes [facility] care [facility] the [facility] [place] [facility]. This section includes future appointments [...] 03, 2024 10:30 AM AMBULATORY - MEDICINE [facility] May 16, 2024 10:00 AM AMBULATORY MEDICINE [facility] May 25, 2024 01:00 PM AMBULATORY MEDICINE [facility] Social History: Smoking Status (Most current) and Tobacco Use (All prior to encounter date) This section includes the most current, and the historical, smoking and tobacco- related health factors from the [place] facility where the Encounter took place. Current Smoking Status This section includes the most current smoking, or tobacco-related health factor, from the [place] facility where the Encounter took place. Date/Time Current Smoking Status Comment Marilyn figueroa May 06, 2023 01:41 PM VA-TOBACCO FORMER USER [facility] Tobacco Use History This section includes a history of the smoking, or tobacco-related health factors, that were collected on or before the date of the Encounter. The data comes from the [place] facility where the Encounter took place. Date/Time Smoking Status/Tobacco Use Comment F meenakshi May 06, 2023 01:41 PM [place]-TOBACCO QUIT 15 YRS OR MORE [facility] May 28, 2022 01:30 PM VA-TOBACCO FORMER USER [facility] May 28, 2022 01:30 PM VA-TOBACCO QUIT 15 YRS OR MORE [facility] Jul 11, 2020 11:00 AM VA-TOBACCO FORMER USER [facility] Jul 11, 2020 11:00 AM VA-TOBACCO QUIT 15 YRS OR MORE [facility] Mar 29, 2009 02:00 PM QUIT TOBACCO USE 1 -7 YEARS AGO stopped tobacco 5 years ago [facility] Mar 09, 2008 09:00 AM QUIT TOBACCO USE 1 -7 YEARS AGO [facility] Aug 19, 2007 01:00 PM QUIT TOBACCO USE 1 -7 YEARS AGO [facility] Aug 13, 2006 01:30 PM QUIT TOBACCO USE 1 -7 YEARS AGO stopped tobacco 4 years ago [facility] Aug 08, 2005 08:30 AM QUIT TOBACCO USE 1 -7 YEARS AGO [facility] Mar 06, 2005 01:30 PM QUIT TOBACCO USE IN PAST Y EAR Pt quit 2002 [facility] Dec 24, 2004 03:00 PM QUIT TOBACCO USE IN PAST YEAR [facility] Jul 30, 2004 02:00 PM HISTORY OF SMOKING Quit 3 years ago [facility] Advance Directives: All historical and current Section Date Range: From patient's date of to the date document was created. This section includes ALL of a patient's completed or amended [place] Advance and Rescinded Directives. The entries below indicate that a directive exists for the patient, but an actual copy is not included with this document. The data comes from all [place] facilities. Date Advance Directives Provider Source Mar 15, 2008 ADVANCE DIRECTIVE GERARDO MARSH [facility] WSTRN DEBORAH [facility] Encounter Notes: All associated encounter [...] LPN LPN Signed: 11/25/2023 13:21 ANTWAN FRAUSTO [facility] November 25, 2023 08:22 AM PHYSICIAN NOTE: [...] of using physical therapy (whether [facility] or [facility] to [...] MD PHYSICIAN Signed: 11/26/2023 10:42 KARRI FARIA [facility]
--- OUTSIDE RECORDS SUMMARY | 2024-07-19 15:39 | XMS_ITS | Data Portability ---
Author Organization [place] - [facility], Allergy Address [address] [place] [address] Care Team Providers Care Sexual Abuse Counsellor Name Role Phone RUFINOALTAGRACIA MARTIN Referring Provider Assessment Encounter Date Assessment Date Assessment LastModified by Organization Details LastModified Time 01/08/2024 01/08/2024 Recommendations: Follow up with referring provider. [email or web address] Not available 01/08/2024 11:37:42 01/08/2024 01/08/2024 88 year old male with intermittent ear blockage. Both ears were debrided of non-occlusive cerumen. Tympanic membrane is intact, middle ear space is well aerated. Audiogram demonstrates a bilateral sensorineural hearing loss, normal tympanograms. Audiogram was reviewed with the patient and his today. Reassurance was provided he does not have a eustachian tube issue. I suspect much of his sensation of ear blockage is related to his hearing loss. Recommend a consultation for hearing aids. He may return to us as needed for worsening symptoms. jose Not available 01/08/2024 12:12:50 03/08/2024 03/08/2024 88-year-old male presents for cerumen removal. Cerumen removed bilaterally without difficulty. TMs normal to inspection. He understands he may call at any time if he is interested in hearing aids at which time we will obtain updated audiogram and he will be provided medical clearance. Otherwise follow-up in 6 months for cerumen removal. albert Not available 03/08/2024 13:34:22 Plan of Treatment Reminders Order Date Submit Date Provider Last Modified By Organization Details Last Modified Time Details Appointments Establish ed 15 2024 01:00P Yumiko FIERRO PA-C Not available Not available Not available Lab None recorded. Referral None recorded. Procedures None recorded. Surgeries None recorded. Imaging None recorded. Medication Orders None recorded. Patient TargetsNo targets recorded. Patient InstructionsNo instructions recorded. Reason for Referral None Reported. Results Created Date Observation Date Name Description Value Unit Range Abnormal Flag Note LastModifiedBy Organization Detail LastModifiedTime 01/08/20 audio gram No observ ation record ed. BARCODE Not Available 2023 16:52:51 02/17/20 24 12/21/2019 imagi ng/di agnos tic [...] and Address Organization Details Recorded Time Dysphonia 07548792 Active 2016 Hoarsenes s; Note: Date Diagnosed : 07/04/2016 3:31 PM (R49.0) Not Available [facility] 4 03:07:02 Posterior rhinorrhe a 04429439 Active 2015 Postnasal drip; Note: Date Diagnosed : 06/05/2016 3:42 PM (R09.82) Not Available [facility] 4 03:07:03 Abnormal auditory perceptio n 51245684 Active 2019 Other abnormal auditory perceptio ns, left ear; Note: Date Diagnosed : 12/21/2019 5:08 PM (H93.292) Not Available [facility] 4 03:07:03 Sensorine ural hearing loss of bilateral ears 594292603 Active 2019 Sensorine ural hearing loss, bilateral ; Note: Date Diagnosed : 12/21/2019 3:28 PM (H90.3) Not Available [facility] 4 03:07:01 Impacted cerumen of bilateral ears 44283342993 37480 Active 2015 Impacted cerumen, bilateral ; Note: Date Diagnosed : 06/05/2016 3:36 PM (H61.23) Not Available [facility] 4 03:07:02 Bilateral tinnitus 78522779873 02 Active 2022 Tinnitus, bilateral ; Note: Date Diagnosed : 05/04/2023 11:35 AM (H93.13) Not Available [facility] 4 03:07:01 Chronic obstructi ve pulmonary disease 40470852 Active 2018 Chronic obstructi ve pulmonary disease, unspecifi ed; Note: Date Diagnosed : 01/12/2019 1:46 PM (J44.9) Not Available [facility] 4 03:07:03 Candidal otitis externa 48945050 Active 2016 Candidal otitis externa; Note: Date Diagnosed : 12/31/2016 1:29 PM (B37.84) Not Available [facility] 4 03:07:01 Mild intermitt ent asthma 045929865 Active 2016 Mild intermitt ent asthma, uncomplic ated; Note: Date Diagnosed : 07/04/2016 3:34 PM (J45.20) Not Available [facility] 4 03:07:02 Pharyngea l dysphagia 29735067279 105 Active 2020 Dysphagia , pharyngea l phase; Note: Date Diagnosed : 01/23/2021 1:01 PM (R13.13) Not Available [facility] 4 03:07:02 Dizziness and giddiness 401135600 Active 2022 Dizziness and giddiness ; Note: Date Diagnosed : 05/04/2023 11:35 AM (R42) Not Available [facility] 4 03:07:02 Problem Notes None recorded. Procedures Surgical History Date Name Laterality Status Provider Name and Address Organization Details Recorded Time Cerumen removal without microscope bilat completed LOREE FIERRO PA-C [address] [facility],[address], [address], [facility] - [facility] 03/08/2024 13:33:34 4 Air & Speech Audio with Tymps (88216, 83253 & 12401) completed Lucius ÁLVAREZ [address] [facility],[address], [address], [facility] - [facility] 01/08/2024 11:38:32 4 Cerumen removal without microscope bilat completed CALLUM SIMON PA-C [address] [facility],[address], [address], [facility] 01/08/2024 12:08:35 Imaging Results Imaging Date Name Status LastModified by Organiz ation Details LastModified Time 01/08/2024 audiogram completed BARCODE Information no t available 01/08/2024 16:52:51 12/21/2019 imaging/diagno stic result completed Information not available 02/17/2024 02:19:20 12/21/2019 imaging/diagno stic result completed Information not available 02/17/2024 02:19:24 02/15/2021 imaging/diagno stic result completed Information not available 02/17/2024 02:19:35 05/04/2023 audiogram completed Information not available 02/17/2024 02:19:46 12/21/2019 audiogram completed Information not available 02/17/2024 02:20:07 Procedure Notes None recorded. Medical Equipment None Reported. Allergies No known drug allergies Medications Name Sig Start Date Stop Date Status Note LastModified by Organization Details LastModified Time furosemid e 40 mg tablet 2019 active Medicati on ID: [id number] D uration Value: 90 Brand Name: furosemi [...] mg tablet 2019 active Medicati on ID: [id number] D uration Value: 90 Brand Name: atorvast atin Sen d Method: E-Prescr ibed Sub s Allowed: subs OK Speci al Instruct ion: TK 1 T PO QD Medic ationGen ericName : atorvast atin Not Available Not Available Not Available Lotrisone 1 %-0.05 % topical cream 12/11 completed Medicati on ID: [id number] P rescrimusa d By Name: PAYAM Corrales nd Name: Lotrison e Send Method: E-Prescr ibed Sub s Allowed: subs OK Speci al Instruct ion: apply to external ear tid X 2 weeks Me dication GenericN shanta: Lotrison e Not Available Not Available Not Available clotrimaz ole-betam ethasone 1 %-0.05 % lotion 12/11 completed Medicati on ID: [id number] R lesly: () Brand Name: Lotrison e Send Method: E-Prescr ibed Sub s Allowed: subs OK Speci al Instruct ion: apply to external ear tid X 2 weeks Me dication GenericN shanta: Lotrison e Not Available Not Available Not Available fluoroura cil 5 % topical cream 01/07 completed Not Available Not Available Not Available clopidogr el 75 mg tablet 12/11 completed Medicati on ID: [id number] D uration Value: 30 Reason: () Brand Name: clopidog rel Send Method: E-Prescr ibed Sub s Allowed: subs OK Speci al Instruct ion: TK 1 T PO D Medica tionGene ricName: clopidog rel Not Available Not Available Not Available amlodipin e 5 mg tablet 01/07 completed Medicati on ID: [id number] D uration Value: 90 Brand Name: amlodipi ne Send Method: E-Prescr ibed Sub s Allowed: subs OK Speci al Instruct ion: TK 1 TS PO ONCE DAILY FOR 90 DAYS Med icationG enericNa me: amlodipi ne Medic ation ID: [id number] D uration Value: 90 Brand Name: amlodipi ne Send Method: E-Prescr ibed Sub s Allowed: subs OK Speci al Instruct ion: TK 1 TS PO ONCE DAILY FOR 90 DAYS Med icationG enericNa me: amlodipi ne Not Available Not Available Not Available tamsulosi n 0.4 mg capsule 2019 active Medicati on ID: [id number] D uration Value: 30 Brand Name: tamsulos in Send Method: E-Prescr ibed Sub s Allowed: subs OK Speci al Instruct ion: TK 1 C PO QD Medic ationGen ericName : tamsulos in Not Available Not Available Not Available amlodipin e 10 mg tablet 01/07 completed Medicati on ID: [id number] B rand Name: amlodipi ne Send Method: E-Prescr ibed Sub s Allowed: subs OK Medic ationGen ericName : amlodipi ne Medic ation ID: [id number] B rand Name: amlodipi ne Send Method: E-Prescr ibed Sub s Allowed: subs OK Medic ationGen ericName : amlodipi ne Not Available Not Available Not Available metronida zole 0.75 % topical cream APPLY TOPICALL Y TO FACE TWICE DAILY FOR ROSACEA active Not Available Not Available No t Available furosemid e 20 mg tablet 12/11 completed Medicati on ID: [id number] D uration Value: 30 Reason: () Brand Name: furosemi de Send Method: E-Prescr ibed Sub s Allowed: subs OK Medic ationGen ericName : furosemi de Not Available Not Available Not Available metoprolo l succinate ER 25 mg tablet,ex tended release 24 hr 12/11 completed Medicati on ID: [id number] D uration Value: 30 Reason: () Brand [...] nasal spray 2022 active Medicati on ID: [id number] D uration Value: 30 Brand Name: ipratrop ium bromide Send Method: E-Prescr ibed Sub s Allowed: subs OK Speci al Instruct ion: 2 sprays in each nostril 1-3 times a day Medi cationGe nericNam e: ipratrop ium bromide Not Available Not Available Not Available finasteri de 5 mg tablet 2019 active Medicati on ID: [id number] D uration Value: 90 Brand Name: finaster velia Send Method: E-Prescr ibed Sub s Allowed: subs OK Speci al Instruct ion: TK 1 T PO QD Medic ationGen ericName : finaster velia Not Available Not Available Not Available gentamici n 0.1 % topical ointment 01/07 completed Medicati on ID: [id number] D uration Value: 7 Brand Name: gentamic in Send Method: E-Prescr ibed Sub s Allowed: subs OK Speci al Instruct ion: APPLY TOPICALL Y AA ONCE DAILY Me dication GenericN shanta: gentamic in Medic ation ID: [id number] D uration Value: 7 Brand Name: gentamic in Send Method: E-Prescr ibed Sub s Allowed: subs OK Speci al Instruct ion: APPLY TOPICALL Y AA ONCE DAILY Me dication GenericN shanta: gentamic in Not Available Not Available Not Available Ventolin HFA 90 mcg/actua tion aerosol inhaler 2019 active Medicati on ID: [id number] D uration Value: 16 Brand Name: Ventolin [...] mg tablet 12/11 completed Medicati on ID: [id number] D uration Value: 90 Reason: () Brand Name: valsarta n-hydroc hlorothi azide Se nd Method: E-Prescr ibed Sub s Allowed: subs OK Medic ationGen ericName : valsarta n-hydroc hlorothi azide Not Available Not Available Not Available Xarelto 20 mg tablet 2019 active Medicati on ID: [id number] D uration Value: 30 Brand Name: Xarelto Send Method: E-Prescr ibed Sub s Allowed: subs OK Speci al Instruct ion: TK 1 T PO D WF Medic ationGen ericName : Xarelto Not Available Not Available Not Available Myrbetriq 50 mg tablet,ex tended release 01/07 completed Medicati on ID: [id number] D uration Value: 30 Brand Name: Myrbetri q Send Method: E-Prescr ibed Sub s Allowed: subs OK Medic ationGen ericName : Myrbetri q Medica tion ID: [id number] D uration Value: 30 Brand Name: Myrbetri q Send Method: E-Prescr ibed Sub s Allowed: subs OK Medic ationGen ericName : Myrbetri q Not Available Not Available Not Available Eliquis 5 mg tablet 12/11 completed Medicati on ID: [id number] D uration Value: 90 Reason: () Brand Name: Eliquis Send Method: E-Prescr ibed Sub s Allowed: subs OK Medic ationGen ericName : Eliquis Not Available Not Available Not Available Anoro Ellipta 62.5 mcg-25 mcg/actua tion powder for inhalatio n 01/07 completed Medicati on ID: [id number] D uration Value: 30 Brand Name: Anoro Ellipta Send Method: E-Prescr ibed Sub s Allowed: subs OK Speci al Instruct ion: INHALE 1 PUFF PO ONCE DAILY FOR 30 DAYS Med icationG enericNa me: Anoro Ellipta Medicati on ID: [id number] D uration Value: 30 Brand Name: Anoro Ellipta Send Method: E-Prescr ibed Sub s Allowed: subs OK Speci al Instruct ion: INHALE 1 PUFF PO ONCE DAILY FOR 30 DAYS Med icationG enericNa me: Anoro Ellipta Not Available Not Available Not Available Stiolto Respimat 2.5 mcg-2.5 mcg/actua tion solution for inhalatio n 2015 active Medicati on ID: [id number] B rand Name: Stiolto Respimat Send Method: E-Prescr ibed Sub s Allowed: subs OK Medic ationGen ericName : Stiolto Respimat Not Available Not Available Not Available Breo Ellipta 200 mcg-25 mcg/dose powder for inhalatio n 12/11 completed Medicati on ID: [id number] D uration Value: 30 Reason: () Brand Name: Breo Ellipta Send Method: E-Prescr ibed Sub s Allowed: subs OK Speci al Instruct ion: INHALE 1 PUFF PO D Medica tionGene ricName: Breo Ellipta Not Available Not Available Not Available Vitals Date Recorded Body height Body mass index (BMI) Body weight Provider Name and Address Organization Details Last Updated DateTime 01/08/2024 185.42 cm 19.8 kg/m2 92185.86 g Junie Chavez [place] - [facility] 01/08/2024 11:12:39 Social History None recorded. Functional Status None recorded. Mental Status None recorded. Family History Nothing Reported. Medical History No medical history recorded. Past Encounters Encounter ID Performer Location Encounter Start Date Encounter Closed Date Diagnosis/Indication Diagnosis SNOMED-CT Code Diagnosis ICD10 Code Diagnosis Note [id number] BONNIE MACHADO MD [facility] on [address] [place] [phone] 01/08/2024 11:03:34 01/08/2024 13:06:31 Bilateral tinnitus 4017168725 102 H93.13 Impacted c erumen of bilateral ears 8975709539 957164 H61.23 Sensorineu ral hearing loss of bilateral ears 048844595 H90.3 [id number] Lucius ÁLVAREZ [facility] on [address] [place] [phone] 01/08/2024 11:37:24 01/08/2024 13:05:33 Sensorineural hearing loss of bilateral ears 846800092 H90.3 Audiologic al evaluation results:Ri ght ear:{{Norm al Mild* M oderate Mo derately-s evere Sol re Profoun d}} {{hearing sloping to a mild slopi ng to a moderate s loping to moderately severe slo ping to severe* sl oping to profound f lat high frequency low frequency mid frequency cookie bite gibson curve}} {{with sen sorineural hearing loss with* cond uctive hearing loss with mixed hearing loss with}} {{excellen t* good fa ir poor no measurable }} word recognitio n.Left ear:{{Norm al* Mild M oderate Mo derately-s evere Sol re Profoun d}} {{hearing sloping to a mild slopi ng to a moderate s loping to moderately severe slo ping to severe* sl oping to profound f lat high frequency low frequency mid frequency cookie bite gibson curve}} {{with sen sorineural hearing loss with* cond uctive hearing loss with mixed hearing loss with}} {{excellen t* good fa ir poor no measurable }} word recognitio n. Tympanomet ry:Right Ear:{{Type A* Type As Type Ad Type C Type C, shallow & rounded Ty pe B Type B with large volume Cou ld not maintain a hermetic seal}}Left Ear:{{Type A* Type As Type Ad Type C Type C, shallow & rounded Ty pe B Type B with large volume Cou ld not maintain a hermetic seal}} [id number] BONNIE MACHADO MD [facility] [address] [phone] 03/08/2024 13:08:02 03/08/2024 13:34:46 Impacted cerumen of bilateral ears 5364423484 786316 H61.23 Sensorineu ral hearing loss of bilateral ears 216892084 H90.3 Health Concerns Section Related Observation LastModified by Organization Detai ls LastModified Time None Recorded Concern Status LastModified by Organization Details LastModified Time None Recorded Advance Directives Directive None Recorded Payers Encounter Date Sequence Insurance Name Policy Number Policy Starsk Covered Member ID Starks Member ID Guarantor Name 01/08/2024 2 [facility] (MEDICARE SUPPLEMENT) Duke Felton [id number] Duke Felton Jr 01/08/2024 1 MEDICARE B-[place] [facility] Duke Felton Jr [id number] Duke Felton Jr 01/08/2024 2 [facility] (MEDICARE SUPPLEMENT) Duke Felton [id number] Duke Felton Jr 01/08/2024 1 MEDICARE B[place] [facility] Duke Felton Jr [id number] Duke Felton Jr 03/08/2024 2 [facility] (MEDICARE SUPPLEMENT) Duke Felton [id number] Duke Felton Jr 03/08/2024 1 MEDICARE B[place] [facility] Duke Felton Jr [id number] Duke Felton Jr Notes Date Note Type Note Provider Name and Address Organization Details Recorded Time 01/08/2024 text/html 88 year old male presents for bilateral ear blockage.This has been an issue for quite some time. Symptoms are intermittent. He finds himself often trying to yawn or open and close his jaw to improve the blockage. There is no pain. No change in chronic tinnitus. He does not hear his well. His PCP suggested he may have a eustachian tube issue. He does not have any chronic nasal congestion. May some pollen allergy. BONNIE MACHADO MD [address], [address], [facility] - [facility] 01/08/2024 12:42:47 01/08/2024 text/html Audiological Evaluation HPIReported bypatient.Hearing loss perceived:both ears: no differences noted between ears Lucius ÁLVAREZ [address] [facility],[place] [address], [place], [address], [facility] 01/08/2024 11:47:53 03/08/2024 text/html 88-year-old male with sensorineural hearing loss presents for cerumen removal. He is a candidate for hearing aids but has not been interested in obtaining them yet. Continues to do fairly well without them. BONNIE MACHADO MD [address] [place] [address], [place], [address], [place] - [facility] 03/09/2024 08:43:49
--- OUTSIDE RECORDS SUMMARY | 2024-07-19 15:39 | XMS_ITS | Encounter Summary ---
Author Name [facility] [place] Organization [place] Address [address] [place] [address] Care Team Providers Care Export Sales Manager Name Role Phone KARRI FARIA Primary Care [...] Patient's Relationship to Policy [employer] ([id number]) PRESCRIPT ION [facility] TIES Jan 05, 2009 [id number] NEVERS,MICHAELA SEPH PATIENT [facility] Jun [facility], 2016 MEDICAR E SUPPLEM E [id number] NEVERS,MICHAELA BROCK PATIENT MEDICARE (WN) MEDICARE (M) PART A October 28, 1999 PART A [id number] [phone] [id number] RAJESHS ADAMS LAY PATIENT MEDICARE (WN) MEDICARE (M) PART B October 28, 1999 PART B [id number] ADAMS SHEEHAN JR PATIENT UMR MEDIGAP PLAN C [facility] TIES Apr 05, 2007 [id number] NEVERS,MICHAELA SEPH PATIENT Selected Encounter This section includes the information on record at [place] for the Encounter. Date/Time Encounter Type Encounter Description Reason Provider Source May 31, 2024 08:15 AM SELF CARE MNGMENT TRAINING PHYSICAL THERAPY ICD-10-CM R42 Dizziness and giddiness MARGARET SANTOS E Encounter Template Text not used by [place] Assessments - Encounter Diagnoses This section includes the primary and secondary diagnoses documented for the Encounter. Date/Time Primary/Secondary Diagnosis Diagnosis Name Provider Source May 31, 2024 11:00 AM PRIMARY Dizziness and giddiness MARGARET SANTOS [facility] Advance Directives: All historical and current Section Date Range: From patient's date of to the date document was created. This section includes ALL of a patient's completed or amended [place] Advance and Rescinded Directives. The entries below indicate that a directive exists for the patient, but an actual copy is not included with this document. The data comes from all [place] facilities. Date Advance Directives Provider Source Mar 15, 2008 ADVANCE DIRECTIVE GERARDO MARSH [facility] Encounter Notes: All associated encounter notes This section contains the clinical notes associated to the Encounter. Date/Time Encounter Note(s) Provider Source May 31, 2024 07:15 AM PHYSICAL THERAPY C ONSULT: LOCAL TITLE: PHYSICAL THERAPY CONSULT STANDARD TITLE: PHYSICAL THERAPY CONSULT DATE OF NOTE: MAY 31, 2024@07:15 ENTRY DATE: MAY 31, 2024@07:15:25 AUTHOR: MARGARET SANTOS EXP COSIGNER: URGENCY: STATUS: COMPLETED Initial Evaluation date: 05/31/24 Progress Note Date: Treatment #: 0 Treatment time: 45' Diagnosis: Dizziness Provider: Luis MILLER Treatment Precautions: h/o bladder CA, carotid artery stenosis, fall risk Patient identified by full name and date of S: Pt reports feelings of dizziness started in 2021. Had surgery for bladder CA, then had CHF. More off balance than dizzy. Mostly feels off balance. If he leans forward he feels like he'll fall forward or if he's on his heels, backward. Son is present w/ patient. Involved in history w/ pt's permission. Has grab bars in bathroom. Has SPC but does not like to use. Pt also w/ rollator walker but does not use. Known B peripheral neuropathy, visual changes. Pt stays active w/ work around the house, no falls in the last 6 months. Seeing PT on the outside currently for balance. Reports he has trouble reaching over head or turning, is when it's worst. Reports watching things go by etc, they can be blurry. Positioning Sx: does not feel when lying down, does feel off balance when bending or reaching overhead, no spinning, just disorientation and off balance sensation head turning w/ dizziness Diplopia(-) Dysarthria (-) Dyphonia(-) Dysphagia(-) Dysmetria(-) Drop Attacks(-) Pt. Goal: to improve balance Active problems - Computerized Problem List is the source for the followin. Normocytic anemia 2. Bladder cancer 3. Wound 4. Carotid artery stenosis 5. CHF - Congestive Heart Failure ([facility] [id number]) 6. CAD - Coronary Artery Disease ([facility] [id number]) 7. COPD - Chronic Obstructive Pulmonary Disease ([facility] [id number]) 8. AF- Atrial Fibrillation ([facility] [id number]) 9. Sleep Apnea ([facility] [id number]) 10. Non-VA providers 11. Bilateral Cataracts 12. Hypertensive retinopathy 13. Colonic Polyps 14. Hyperplasia of Prostate, unspecified, without Urinary obstruction and other 15. Spinal stenosis of lumbar region 16. Hypertensive heart disease with congestive heart failure (SNOMED CT [id number]) Scans (MRI/CT): yes, done on outside through outside PCP per pt and son, reported normal Other Symptoms: Oscillopsia N Falls N Imbalance Y Exertion induced N Extremity numbness or weakness Y LOC N Visual Sx Y PRECAUTIONS: Fall risk O Somatosensory: Light touch [ ] Normal [ x] Impaired Proprioception: NT Oculomotor/Vestibular Testing: Saccades: WFL Smooth Pursuit: WFL Gaze Evoked Nystagmus: none VOR: cancellation Intact Symptomatic? N head thrust- horizontal + L Testing w/ vision blocked: Nystagmus: spontaneous R beat gaze evoked R gaze R beat, L gaze wnl Headshaking Induced Nystagmus: WNL Positional Testing: Huntington - Hallpike: R WNL L WNL Dynamic Visual Acuity Horizontal: symptomatic, not completed fully Postural Control: gait: amb w/o A.D. flexed posture, slowed gait velocity, shortened step length, wide EDWARD, reaching for singh at all times. Treatment: Discussion of findings and POC Patient education was provided for all aspects of care during this clinical encounter. 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 Pt being seen for balance and dizziness on outside, therefore cannot follow at this time. This is further away than private sector PT he is seeing now. Given info regarding this. STG's 4 wks [ ] Pt will be tested further for BPPV and treated accordingly. [x ] Pt will ambulate w/ horizontal head movements w/o gait deviation, in order to walk and look at signs. [x ] No c/o vertigo for 5 days w/ ADL's [ ] Negative positional testing [ x] Pt will be I w/ HEP for vestibular ther ex. [ ] FGA score /30 PLAN: No further PT at this time. Pt would like to continue w/ private sector PT. /josue/ Margaret Santos PT,DPT PHYSICAL THERAPIST Signed: 05/31/2024 11:01 MARGARET SANTOS [place] [facility]
--- OUTSIDE RECORDS SUMMARY | 2024-07-19 15:39 | XMS_ITS | Encounter Summary ---
Author Name [facility] [place] ([place]) Organization [facility] Address [address] [place] [address] Care Team Providers Care Buyer Name Role Phone KARRI FARIA Primary Care [...] Patient's Relationship to Policy [employer] ([id number]) PRESCRIPT ION [facility] TIES Jan 05, 2009 [id number] NEVERSMICHAELA SEPH PATIENT [facility] MEDICARE SUPPLEMEN TAL [place] IND Jun 29, 2016 MEDICAR E SUPPLEM E [id number] NEVERSMICHAELA PATIENT MEDICARE (WNR) MEDICARE (M) PART B October 28, 1999 PART B [id number] ADAMS SHEEHAN JR PATIENT MEDICARE (WN) MEDICARE (M) PART A October 28, 1999 PART A [id number] ADAMS SHEEHAN JR PATIENT UMR MEDIGAP PLAN C [facility] TIES Apr 05, 2007 [id number] NEVERSMICHAELA SEPH PATIENT Selected Encounter This section includes the information on record at [place] for the Encounter. Date/Time Encounter Type Encounter Description Reason Pro vider Source IHE Encounter Template Text not used by [place] Advance Directives: All historical and current Section Date Range: From patient's date of to the date document was created. This section includes ALL of a patient's completed or amended [place] Advance and Rescinded Directives. The entries below indicate that a directive exists for the patient, but an actual copy is not included with this document. The data comes from all [place] facilities. Date Advance Directives Provider Source Mar 15, 2008 ADVANCE DIRECTIVE GERARDO MARSH [place] [facility]
--- OUTSIDE RECORDS SUMMARY | 2024-07-19 15:39 | XMS_ITS | Encounter Summary ---
Author Name Department [place] Organization [place] Address [address] [place] [address] Care Team Providers Care Database Management Specialist Name Role Phone KARRI FARIA Primary [...] Patient's Relationship to Policy [employer] ([id number]) PRESCRIPT ION [facility] TIES Jan 05, 2009 [id number] NEVERS,MICHAELA SEPH PATIENT [facility] MEDICARE SUPPLEMEN TAL [place] IND Jun 29, 2016 MEDICAR E SUPPLEM E [id number] NEVERSMICHAELA VINOD PATIENT MEDICARE (WNR) MEDICARE (M) PART A October 28, 1999 PART A [id number] ADAMS SHEEHAN JR PATIENT MEDICARE (WN) MEDICARE (M) PART B October 28, 1999 PART B [id number] [phone] ADAMS SHEEHAN JR PATIENT UMR MEDIGAP PLAN C [facility] TIES Apr 05, 2007 [id number] NEVERS,MICHAELA SEPH PATIENT Selected Encounter This section includes the information on record at [place] for the Encounter. Date/Time Encounter Type Encounter Description Reason Provider Source Feb 03, 2024 10:30 AM OFFICE O/P EST MOD 30 MIN PRIMARY CARE/MEDICINE ICD-10-CM R53.83 Other fatigue BIENVENIDO,APOISIDORO COOPERCANDICE Padmini Encounter Template Text not used by [place] Assessments - Encounter Diagnoses This section includes the primary and secondary diagnoses documented for the Encounter. Date/Time Primary/Secondary Diagnosis Diagnosis Name Provider Source Feb 05, 2024 11:03 AM PRIMARY Other fatigue BIENVENIDOARTEM HERNANDES [place] [facility] Feb 05, 2024 11:03 AM SECONDARY Anemia, unspecified BIENVENIDO,ARTEM DUDLEY [facility] Plan of Treatment: Future Appointments (+ 6 months) and Future Tests (+/- 45 days) The Plan of Treatment section includes future care activities for the patient [facility] [place] [facility] This section includes future appointments and future orders which are active, pending or scheduled. Future Appointments This section includes appointments that were scheduled to occur 6 months from the date of the Encounter, up to a maximum of 20 appointments. The data comes from all [place] treatment facilities. Appointment Date/Time Appointment Type Appointme nt Facility Name May 16, 2024 10:00 AM AMBULATORY - MEDICINE [facility] May 25, 2024 01:00 PM AMBULATORY - MEDICINE [facility] [place] [facility] May 31, 2024 08:15 AM AMBULATORY - [facility] Lab Results: +/- 30 days of the encounter This section includes the Chemistry and Hematology Lab Results on record with [place] for the patient. Radiology Reports and Pathology Reports are provided separately, in subsequent sections. Lab Results This section contains the Chemistry/Hematology Results that were resulted 30 days before or 30 daysafter the date of the Encounter. Date/Time Source Result Type Result - Unit Interpretation Reference Range Comment Feb 03, 2024 11:37 AM [facility] TSH Specimen Type: SERUM No comment entered. Ordering Provider: ARTEM FARIA Report Released Date/Time: Feb 03, 2024 11:33 AM Reporting [facility] [address] [address] Performing Lab: [place] [facility] [place] [place] [facility] [address] [facility] [address] TSH 2.33 u[IU]/mL 0.35-5.00 Feb 03, 2024 11:37 AM [facility] VITAMIN B12 Specimen Type: SERUM No comment entered. Ordering Provider: ARTEM FARIA Report Released Date/Time: Feb 03, 2024 11:33 AM Reporting Lab: [facility] [place] [facility] [address] [facility] [address] Performing Lab: [place] [facility] [place] [facility] [address] [facility] [address] VITAMIN B12 472 pg/mL 200-900 Feb 03, 2024 11:37 AM [facility] VITAMIN D (25-[place]) Specimen Type: SERUM No comment entered. Ordering Provider: ARTEM FARIA Report Released Date/Time: Feb 03, 2024 11:33 AM Reporting Lab: [facility] [place] [facility] [address] [facility] [address] Performing Lab: [facility] [place] [facility] [address] [facility] [address] VITAMIN D (25-OH) 30 ng/mL 20-50 Feb 03, 2024 11:37 AM [facility] FOLATE (WROX) Specimen Type: SERUM No comment entered. Ordering Provider: ARTEM FARIA Report Released Date/Time: Feb 03, 2024 11:34 AM Reporting Lab: [facility] [place] [facility] [address] [facility] [address] Performing Lab: [facility] [place] [facility] [address] [facility] [address] FOLATE (WROX) 6.28 ng/mL >5.2 Feb 03, 2024 11:37 AM [facility] FERRITIN Specimen Type: SERUM No comment entered. Ordering Provider: ARTEM FARIA Report Released Date/Time: Feb 03, 2024 11:34 AM Reporting Lab: [facility] [place] [facility] [address] [facility] [address] Performing Lab: [facility] [address] [facility] [address] FERRITIN 110 ng/mL 20-300 Feb 03, 2024 11:37 AM [facility] LIPID PANEL FASTING Specimen Type: SERUM No comment entered. Ordering Provider: ARTEM FARIA Report Released Date/Time: Feb 03, 2024 11:33 AM Reporting Lab: [facility] [address] [facility] [address] Performing Lab: [facility] [address] [facility] [address] CHOLESTEROL 98 mg/dL TRIGLYCERIDE 65 mg/dL 0-150 LDL calculated 41 mg/dL 0-129 CHOL/HDL 2.2 HDL CHOLESTEROL 44 mg/dL 40-60 Feb 03, 2024 11:37 AM [facility] BASIC METABOLIC PANEL (fasting) Specimen Type: SERUM No comment entered. Ordering Provider: ARTEM FARIA Report Released Date/Time: Feb 03, 2024 11:33 AM Reporting Lab: [facility] [address] [facility] [address] Performing Lab: [facility] [address] [facility] [address] UREA NITROGEN 44 mg/dL H 7-25 GLUCOSE 91 mg/dL 65-100 SODIUM 137 mmol/L 135-145 POTASSIUM 4.1 mmol/L 3.5-5.0 CHLORIDE 105 mmol/L 100-110 CO2 24 meq/L 20-30 CREATININE, Serum 1.12 mg/dL 0.50-1.40 eGFR(CKD-EPI 2020) 63 mL/min >60 Feb 03, 2024 11:37 AM [facility] LIVER FUNCTION Specimen Type: SERUM No comment entered. Ordering Provider: ARTEM FARIA Report Released Date/Time: Feb 03, 2024 11:33 AM Reporting Lab: [facility] [address] [facility] [address] Performing Lab: [facility] [address] PROTEIN,TOTAL 7.4 g/dL 6.0-8.3 ALBUMIN 4.1 g/dL 3.5-5.0 ALKALINE PHOSPHATASE 64 U/L 40-150 AST 17 U/L 5-34 ALT 7 U/L BILIRUBIN, TOTAL 0.9 mg/dL 0.2-1.2 Feb 03, 2024 11:37 AM [facility] CALCIUM Specimen Type: SERUM No comment entered. Ordering Provider: ARTEM FARIA Report Released Date/Time: Feb 03, 2024 11:33 AM Reporting Lab: [facility] [place] [facility] [address] [facility] [address] Performing Lab: [facility] [address] CALCIUM 9.2 mg/dL 8.5-10.2 Feb 03, 2024 11:37 AM [facility] HEMOGLOBIN A1C PANEL Specimen Type: BLOOD [...] Feb 03, 2024 11:33 AM Reporting Lab: [facility] [address] [facility] [address] Performing Lab: [facility] [address] HEMOGLOBIN A1C 5.3 4.0-5.6 Feb 03, 2024 11:37 AM [facility] IRON & TIBC PANEL Specimen Type: SERUM No comment entered. Ordering Provider: ARTEM FARIA Report Released Date/Time: Feb 03, 2024 11:34 AM Reporting Lab: [facility] [address] [facility] [address] Performing Lab: [facility] [address] TIBC 333 ug/dL 204-475 IRON 79 ug/dL 40-160 Transferrin Saturation 23.7 20.0-50.0 Feb 03, 2024 11:37 AM [facility] CBC AND DIFF (AUTO) Specimen Type: BLOOD No comment entered. Ordering Provider: ARTEM FARIA Report Released Date/Time: Feb 03, 2024 11:33 AM Reporting Lab: [facility] [address] [facility] [address] Performing Lab: [facility] [address] [facility] [address] WBC 5.43 10*3/uL 4.50-11.00 RBC 3.83 10*6/uL [...] 10*3/uL 0.00-0.00 Feb 03, 2024 11:28 AM [facility] LYME SEROLOGY PANEL Specimen Type: SERUM [...] of the panel were validated at the [place] [facility]. Results are considered [...] Feb 03, 2024 11:15 AM Reporting Lab: [facility] [address] [facility] [address] Performing Lab: [facility] [address] [facility] [address] TIER 1 LYME SCREENING EIA Negative Negative LYME AB FINAL INTERPRETATION Negative Negative Social History: Smoking Status (Most current) and Tobacco Use (All prior to encounter date) This section includes the most current, and the historical, smoking and tobacco- related health factors from the [place] facility where the Encounter took place. Current Smoking Status This section includes the most current smoking, or tobacco-related health factor, from the [place] facility where the Encounter took place. Date/Time Current Smoking Status Comment Facil [place] May 06, 2023 01:41 PM VA-TOBACCO FORMER USER [place] Tobacco Use History This section includes a history of the smoking, or tobacco-related health factors, that were collected on or before the date of the Encounter. The data comes from the [place] facility where the Encounter took place. Date/Time Smoking Status/Tobacco Use Comment F acility May 06, 2023 01:41 PM VA-TOBACCO QUIT 15 YRS OR MORE [place] May 28, 2022 01:30 PM VA-TOBACCO FORMER USER [place] May 28, 2022 01:30 PM VA-TOBACCO QUIT 15 YRS OR MORE [place] Jul 11, 2020 11:00 AM VA-TOBACCO FORMER USER [place] Jul 11, 2020 11:00 AM VA-TOBACCO QUIT 15 YRS OR MORE [place] Mar 29, 2009 02:00 PM QUIT TOBACCO USE 1 -7 YEARS AGO stopped tobacco 5 years ago [place] Mar 09, 2008 09:00 AM QUIT TOBACCO USE 1 -7 YEARS AGO [place] Aug 19, 2007 01:00 PM QUIT TOBACCO USE 1 -7 YEARS AGO [place] Aug 13, 2006 01:30 PM QUIT TOBACCO USE 1 -7 YEARS AGO stopped tobacco 4 years ago [place] Aug 08, 2005 08:30 AM QUIT TOBACCO USE 1 -7 YEARS AGO [place] Mar 06, 2005 01:30 PM QUIT TOBACCO USE IN PAST Y EAR Pt quit 2002 [place] Dec 24, 2004 03:00 PM QUIT TOBACCO USE IN PAST YEAR [place] Jul 30, 2004 02:00 PM HISTORY OF SMOKING Quit 3 years ago [place] Advance Directives: All historical and current Section Date Range: From patient's date of to the date document was created. This section includes ALL of a patient's completed or amended [place] Advance and Rescinded Directives. The entries below indicate that a directive exists for the patient, but an actual copy is not included with this document. The data comes from all [facility]. Date Advance Directives Provider Source Mar 15, 2008 ADVANCE DIRECTIVE GERARDO MARSH [facility] Encounter Notes: All associated encounter [...] his fatigue and recovery - going to [facility] with PT twice a week. No falls. [...] Wound Right lower leg wound Managed by [facility] wound care 4. Carotid artery stenosis 5. CHF - Congestive Heart Failure ([email or web address] [id number]) 6. CAD - Coronary Artery Disease ([facility] [[email or web address]] [id number]) s/p 2 stents 7. COPD - Chronic Obstructive Pulmonary Disease ([facility] [[email or web address]] [id number]) 8. AF- Atrial Fibrillation ([facility] [[email or web address]] [id number]) 9. Sleep Apnea ([facility] [[email or web address] [id number]) 10. Non-VA providers PCP-Dr.[place] Wire Dropper-Dr.Nirav Partida Urologist-Dr. Markus Rojo--telephone # [phone] 11. Bilateral Cataracts exam 11/06/2009 12. Hypertensive retinopathy right eye 13. Colonic Polyps benign polyps next colo 04/17/2013 14. Hyperplasia of Prostate, unspecified, without Urinary obstruction and other 15. Spinal stenosis of lumbar region surgery l4-l5 decompression 06/01/08 16. 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 Clinically he [...] MD PHYSICIAN Signed: 02/05/2024 11:03 KARRI FARIA [place]
--- OUTSIDE RECORDS SUMMARY | 2024-07-19 15:39 | XMS_ITS | Encounter Summary ---
Author Name [facility] [place] [place] Organization [facility] [place] Address [address] [place] [address] Care Team Providers Care Hang Gliding Instructor Name Role Phone KARRI FARIA Primary Care [...] Patient's Relationship to Policy [employer] ([id number]) PRESCRIPT [place] RAMESH TIES Jan 05, 2009 [id number] NEVERSMICHAELA PATIENT [facility] MEDICARE SUPPLEMEN TAL [place] IND Jun 29, 2016 MEDICAR E SUPPLEM E [id number] NEVERSMICHAELA PATIENT MEDICARE (WNR) MEDICARE (M) PART A October 28, 1999 PART A [id number] ADAMS SHEEHAN JR PATIENT MEDICARE (WNR) MEDICARE (M) PART B October 28, 1999 PART B [id number] ADAMS SHEEHAN JR PATIENT [employer] MEDIGAP PLAN C WINIFRED KEILY CHANDLERI TIES Apr 05, 2007 [id number] MICHAELA SHEEHAN PATIENT Selected Encounter This section includes the information on record at [place] for the Encounter. Date/Time Encounter Type Encounter Description Reason Pro vider Source Jun 21, 2024 12:53 PM Outpatient Encounter ADMIN PAT ACTIVTIES (MASNONCT) IHE Encounter Template Text not used by [place] Advance Directives: All historical and current Section [...] 15, 2008 ADVANCE DIRECTIVE GERARDO MARSH [facility] Encounter Notes: All associated encounter notes This section contains the clinical notes associated to the Encounter. Date/Time Encounter Note(s) Provider Source Jun 21, 2024 12:53 PM MEDICATION MGT NOT E: LOCAL TITLE: OUTPATIENT MEDICATION REQUEST STANDARD TITLE: MEDICATION MGT NOTE DATE OF NOTE: JUN 21, 2024@12:53 ENTRY DATE: JUN 21, 2024@12:53:45 AUTHOR: SHELLY MONTANO EXP COSIGNER: URGENCY: STATUS: COMPLETED Medication Request Date of Request: May Is this a New Medication? No RIVAROXABAN 15MG TAB [facility]: [address]-82 (3) *Dosage: 15 (MG) Verb: TAKE Dispense Units: 1 Noun: TABLET *Route: ORAL *Schedule: QDAILY (4)Pat Instructions: WITH FOOD DOSE REDUCTION:DISCONTINUE 20MG TABS) Provider Comments: dose reduction with kidney function Indications: TO PREVENT BLOOD CLOTS SIG: TAKE ONE TABLET BY MOUTH ONCE DAILY TO PREVENT BLOOD CLOTS WITH FOOD DOSE REDUCTION:DISCONTINUE 20MG TABS) The following actions were performed: PACT Team RN and Provider added as additional Signers to this request *Please let patient know that this request may take up to 72 hours to process.* /josue/ SHELLY MONTANO Signed: 06/21/2024 12:54 Receipt Acknowledged By: 06/30/2024 14:00 /josue/ KARRI FARIA MD PHYSICIAN 06/23/2024 08:58 /es/ Heather N Moffat, RN Registered Nurse (RN) for [facility]
--- OUTSIDE RECORDS SUMMARY | 2024-07-19 15:39 | XMS_ITS | Continuity of Care Document ---
Author Organization [facility] Address [address] [place] [address]- Care Team Providers Care Senior Internet Sales Consultant Name Role Phone Gregory Trimble MD Primary Care Physician [phone] Encounter [facility] Date(s): 06/16/24 - 06/23/24 [facility] [address] [place] [address] Attending Physician: Laura Thorpe NP Admitting Physician: Maurilio ROSENBERG, Laura Sherman Referring Physician: Gregory Trimble MD Encounter Type: Office Visit Allergies, Adverse Reactions, Alerts No Known Medication Allergies Immunizations Given and Recorded Vaccine Date Status Refusal Reason influenza virus vaccine, inactivated 04/30/17 Give n Medications amLODIPine 5 mg oral tablet 5 mg, 1, tablet, By Mouth, Daily, # 30 tablet, Refills 0, Tot. Refills 0, Maintenance, 05/15/17 10:04:37 AM EST, Route to Pharmacy Electronically, [facility] Start Date: 05/15/17 Stop Date: 06/14/17 Status: Ordered Quantity: 30.0 Unit: tablet Repeat number: 1 atorvastatin 80 mg oral tablet = 80 mg, By Mouth, Daily at bedtime, # 30 tablet, 0 Refills, Maintenance, Tablet, Route to PharmacyElectronically, [id number], [facility] Start Date: 05/03/17 Status: Ordered Quantity: [...] Refills, Maintenance, 05/15/17 10:04:50 AM EST, Tablet, [facility] 3 Start Date: 05/15/17 Stop Date: 06/14/17 Status: Ordered Quantity: 30.0 Unit: tablet Repeat number: 1 Flomax 0.4 mg oral capsule 0.4 mg, 1, capsule, By Mouth, Daily, # 30 capsule, Refills 0, Tot. Refills 0, Maintenance, 05/03/17 9:53:47 AM EST, Route to Pharmacy Electronically, [facility] 3 Start Date: 05/03/17 Status: Ordered Quantity: 30.0 Unit: capsule Repeat number: 1 fluticasone 50 mcg/inh nasal spray SHAKE LQ AND U 1 SPR IEN QD Start Date: 05/07/17 Status: Ordered Repeat number: 1 furosemide 20 mg oral tablet 20 mg, By Mouth, Daily, # 30 tablet, Refills 0, Tot. Refills 0, Maintenance, 05/03/17 9:01:26 AM EST, Route to Pharmacy Electronically, [place] [id number] Start Date: 05/03/17 Status: Ordered Quantity: 30.0 [...] AM EST, Inhaler, Route to Pharmacy Electronically, [id number], [facility] 3 Start Date: 05/03/17 Status: Ordered Quantity: 1.0 Unit: each Repeat number: 1 Juliana pruett, See Instructions, # 1 each, Refills 0, Tot. Refills 0, Maintenance, 1 rolling walker, 05/03/17 2:01:19 PM EST, Compound Start Date: [...] (hyperlipidemia) Confirmed Active HTN (hypertension) Confirmed Active Vital Signs Most recent to oldest [Reference Range]: 1 Height 185.4 cm (06/16/24 2:44 PM) Weight 68.04 kg (06/16/24 2:44 PM) Pulse Rate [55-90 bpm] 80 bpm (06/16/24 2:44 PM) Body Mass Index [18.5-24.99 kg/m2] 19.79 kg/m2 (06/16/24 2:44 PM) Blood Pressure [90-138/55-84 mm Hg] 130/ 60mm Hg (06/16/24 2:44 PM) Blood pressure sites Arm, right (06/16/24 2:44 PM) Weight Obtained Via Patient/family state d (06/16/24 2:44 PM) Social History Social History Type Response Smoking Status Former smoker entered on: 05/08/17 Sex Sex Representation Male (finding) Note * Laura Mack: PERFORM Event Display: Patient Education/Instruction Authored Date: [id number] Ambulatory Adult Visit Summary [facility] [address] [facility] [address] [place] [address] Name: ADAMS SHEEHAN : 1935?? Visit: 06/16/2024 14:30?? Ambulatory Visit Instructions ?? Your Care Team Primary Care Provider Gregory Trimble MD? This Visit Provider Maurilio ROSENBERG , Laura Sherman Your Diagnosis Carotid artery stenosis Vitals Signs Pulse Rate: 80 bpm Height: 185.4 cm Systolic Blood Pressure: 130 mm Hg Weight: 68.04 kg Diastolic Blood Pressure: 60 mm Hg Body Mass Index: 19.79 kg/m2 ?? Body surface area: 1.87 Medications The list below reflects the information in our records and provided by you today along with any changes made during this visit. Please continue your medications until treatment is completed or stopped by your provider. If this is different from the information you have or there are other questions,please contact the prescribing provider. What How Much When Instructions Unchanged Albuterol (ProAir HFA 90 mcg/ inh inhalation aerosol withadapter) 2 puff(s) Inhalation 4 times a day Unchanged Albuterol (Ventolin 90 mcg Inhaler) Inhalation prn ?? Unchanged Amlodipine (amLODIPine 5 mg oral tablet) 1 tab(s) Oral Daily Duration: 30 Days Unchanged Atorvastatin (atorvastatin 80 mg oral tablet) 80 Milligram Oral Daily at Bedtime Unchanged Durable Medical Equipment (Rolling walker) See instructions 1 rolling walker ?? Unchanged Ferrous Sulfate (Ferrous Sulfate EC) Unchanged Finasteride (finasteride 5 mg oral tablet) 1 tab(s) Oral Daily Duration: 30 Days Unchanged Fluticasone Nasal (fluticasone 50 mcg/ inh nasal spray) SHAKE LQ AND U 1 SPR IEN QD ?? Unchanged Furosemide (furosemide 20 mg oral tablet) 20 Milligram Oral Daily Unchanged olodaterol-tiotropium (Stiolto Respimat) Inhalation Every 24 hours Unchanged Potassium Chloride (potassium chloride 10 mEq oral capsule, extended release) Unchanged rivaroxaban (Xarelto 20 mg oral tablet) 1 tab(s) Oral Daily in PM Unchanged Tamsulosin (Flomax 0.4 mg oral capsule) 1 capsule Oral Daily Unchanged Zinc Sulfate (Zinc) 140 Milligram Oral Daily Medications and Immunizations Administered Medications Given During Visit No medications given during this visit.?? Allergies (NKA means No Known Allergies) No Known Medication Allergies Common Emergency Awareness Tips IS IT A STROKE? Act FAST and Check for these signs: FACE Does the face look uneven? ARM Does one arm drift down? SPEECH Does their speech sound strange? TIME Call at any sign of stroke ?? Heart Attack Signs Chest discomfort: Most heart attacks involve discomfort in the center of the chest and lasts more than a few minutes, or goes away and comes back. It can feel like uncomfortable pressure, squeezing, fullness or pain. Discomfort in upper body: Symptoms can include pain or discomfort in one or both arms, back, neck, jaw or stomach. Shortness of breath: With or without discomfort. Other signs: Breaking out in a cold sweat, nausea, or lightheaded. Remember, MINUTES DO MATTER. If you experience any of these heart attack warning signs, call to get immediate medical attention! ?? Smoking can increase your chances of developing chronic health problems and can cause harmful effects to other family members in your house. If you smoke, you are strongly encouraged to quit. Please call [facility] [employer] [facility] at [phone] or [phone] ([phone]) or log in to [email or web address] for referrals to smoking cessation programs. ?? The National Suicide Prevention Hotline is available 19/01 if you or someone you know needs to find a reason to keep living. By calling 5-313-873-[employer] (8822) you'll be connected to a skilled, trained counselor at a crisis center in your area. [facility] You can view and manage your care through the patient portal or by using a health care anne of your choosing. [employer] is a website that allows you to securely view your medical information including your hospital discharge summary, office visit summaries, medications and follow-up visits. You can also request appointments, renew medications, and request access to your medical information using a health care anne of your choosing, or just ask a question. You can enroll at [email or web address] or register during your next office visit. [facility], in keeping with [facility] guidance, no longer requires face masks for staff, patientsor visitors in most situations. Similiar to time spent indoors at other locations, there is the chance that you were exposed to repiratory viruses during your time with us (such as flu or COVID-19). If you develop symptoms concerning for a viral respiratory infection, please seek testing (and treatment if indicated) from your medical provider or home test kit. ?? Disclaimer: The information provided is of a general nature and is intended to be used in conjunction with the recommendations and advice of your health care practitioner. Every effort has been made to ensure that the information provided is accurate and complete at the time it is provided to you however, as your needs change, or, as new information becomes available, different or additional instructions may be required. ?? If you have questions, please consult with your primary care provider or pharmacist, as appropriate. This information is not intended to serve as substitution for assessment and evaluation by a qualified health care provider. If you do not have a primary care provider, you may find a [facility] provider by calling [facility] [employer] [facility] at [phone]. Patient Care team information Care Team Personnel Name: Alise Gay RN Position: [facility] AMB Nurse Member Role: Primary Care Nurse Name: Levon Zambrano RN Position: [facility] ED RN W/OE and Tasks Member Role: Primary Care Nurse Name: Gregory Trimble MD Position: Reference Physician Member Role: PCP Address: [address] [place] [address] Gregory Trimble MD [place], [place] [address] Telecom: [phone] Name: Keyana Espinoza RN Position: [facility] SN RN Member Role: Primary Care Nurse Name: Roger Summers RN Position: [facility] RN Member Role: Primary Care Nurse Name: Diamond Hernandez RN Position: [facility] RN Member Role: Primary Care Nurse Name: Ankush Bolton RN Position: [facility] RN Member Role: Primary Care Nurse Name: Donna Costello RN Position: [facility] Onco RN Member Role: Primary Care Nurse Care Team Related Persons Name: JOSHUA SHEEHAN Name: JEN DELEON Insurance Providers Guarantor name: ADAMS SHEEHAN Health Plan Information #: 2 Payer: [employer] [facility] Member Number: [id number] Policy Number: NA Group Number: NA Health Plan Information #: 3 Payer: [employer] [place] Member Number: [id number] Policy Number: NA Group Number: ONESIMO Health Plan Information #: 4 Payer: [employer] [facility] Member Number: [id number] Policy Number: NA Group Number: NA Health Plan Information #: 1 Payer: MEDICARE PART B OUTPT Member Number: [id number] Policy Number: NA Group Number: NA
--- OUTSIDE RECORDS SUMMARY | 2024-07-19 15:39 | XMS_ITS | Encounter Summary ---
Author Name [facility] [place] Address [address] [place] [address] Care Team Providers Care Hog Handler Name Role Phone KARRI FARIA Primary Care [...] Patient's Relationship to Policy [employer] [facility] ([id number]) PRESCRIPT ION [facility] TIES Jan 05, 2009 [id number] NEVERS,MICHAELA SEPH PATIENT [facility] MEDICARE SUPPLEMEN TAL [place] IND Jun 29, 2016 MEDICAR E SUPPLEM E [id number] NEVERSMICHAELA VINOD PATIENT MEDICARE (WNR) MEDICARE (M) PART A October 28, 1999 PART A [id number] [phone] ADAMS SHEEHAN JR PATIENT MEDICARE (WN) MEDICARE (M) PART B October 28, 1999 PART B [id number] ADAMS SHEEHAN JR PATIENT UMR MEDIGAP PLAN C [facility] TIES Apr 05, 2007 [id number] NEVERS,MICHAELA SEPH PATIENT Selected Encounter This section includes the information on record at [place] for the Encounter. Date/Time Encounter Type Encounter Description Reason Provider Source May 25, 2024 01:00 PM OFFICE O/P EST MOD 30 MIN PRIMARY CARE/MEDICINE ICD-10-CM R42 Dizziness and giddiness OSVALDO FARIAISIDORO COOPERCANDICE IHPadmini Encounter Template Text not used by [place] Assessments - Encounter Diagnoses This section includes the primary and secondary diagnoses documented for the Encounter. Date/Time Primary/Secondary Diagnosis Diagnosis Name Provider Source May 25, 2024 04:47 PM PRIMARY Dizziness and giddiness BIENVENIDOARTEM [facility] Plan of Treatment: Future Appointments (+ 6 months) and Future Tests (+/- 45 days) The Plan of Treatment section includes future care activities for the patient from all [place] treatmentfacilities. This section includes future appointments and future orders which are active, pending or scheduled. Future Appointments This section includes appointments that were scheduled to occur 6 months from the date of the Encounter, up to a maximum of 20 appointments. The data comes from all [place] treatment facilities. Appointment Date/Time Appointment Type Appointme nt Facility Name May 31, 2024 08:15 AM AMBULATORY - [facility] Social History: Smoking Status (Most current) and Tobacco Use (All prior to encounter date) This section includes the most current, and the historical, smoking and tobacco- related health factors from the [place] facility where the Encounter took place. Current Smoking Status This section includes the most current smoking, or tobacco-related health factor, from the [place] facility where the Encounter took place. Date/Time Current Smoking Status Comment Marilyn ity May 16, 2024 10:00 AM [place]-TOBACCO QUIT [address] [facility] Tobacco Use History This section includes a history of the smoking, or tobacco-related health factors, that were collected on or before the date of the Encounter. The data comes from the [place] facility where the Encounter took place. Date/Time Smoking Status/Tobacco Use Comment F acility May 16, 2024 10:00 AM [place]-TOBACCO QUIT [address] [facility] May 06, 2023 01:41 PM VA-TOBACCO FORMER USER [facility] May 06, 2023 01:41 PM VA-TOBACCO QUIT [address] OR [address] [facility] May 28, 2022 01:30 PM VA-TOBACCO FORMER USER [facility] May 28, 2022 01:30 PM VA-TOBACCO QUIT [address]RS OR [address] [facility] Jul 11, 2020 11:00 AM VA-TOBACCO FORMER USER [facility] Jul 11, 2020 11:00 AM VA-TOBACCO QUIT [address] OR [address] [facility] Mar 29, 2009 02:00 PM QUIT TOBACCO USE 1 -7 YEARS AGO stopped tobacco [address] [facility] Mar 09, 2008 09:00 AM QUIT TOBACCO USE 1 -[address] [facility] Aug 19, 2007 01:00 PM QUIT TOBACCO USE 1 -[address] [facility] Aug 13, 2006 01:30 PM QUIT TOBACCO USE 1 -7 YEARS AGO stopped tobacco [address] [facility] Aug 08, 2005 08:30 AM QUIT TOBACCO USE 1 -[address] [facility] Mar 06, 2005 01:30 PM QUIT TOBACCO USE IN PAST Y EAR Pt quit [address] [facility] Dec 24, 2004 03:00 PM QUIT TOBACCO USE IN PAST YEAR [facility] Jul 30, 2004 02:00 PM HISTORY OF SMOKING Quit [address] [facility] Advance Directives: All historical and current Section Date Range: From patient's date of to the date document was created. This section includes ALL of a patient's completed or amended [place] Advance and Rescinded Directives. The entries below indicate that a directive exists for the patient, but an actual copy is not included with this document. The data comes from all [place] facilities. Date Advance Directives Provider Source Mar 15, 2008 ADVANCE DIRECTIVE GERARDO MARSH [facility] LIZ CABRERA [facility] Encounter Notes: All associated encounter notes This section contains the clinical notes associated to the Encounter. Date/Time Encounter Note(s) Provider Source May 25, 2024 01:53 PM PHYSICIAN NOTE: LOCAL TITLE: NOTE STANDARD TITLE: PHYSICIAN NOTE DATE OF NOTE: MAY 25, 2024@13:53 ENTRY DATE: MAY 25, 2024@13:58:13 AUTHOR: KARRI FARIA EXP COSIGNER: URGENCY: STATUS: COMPLETED CC: 88 year old WHITE MALE SERVICE CONNECTED % - NONE FOUND HPI: Continues to have concerns regarding dizziness. Patient has been attending physical therapy with none [place] physical therapy and he quotes they do not understand why he continues to be weak and dizzy. Patient has been since suspecting overmedication so he has stopped his Entresto. He continues to have the same problem despite being off this medication. Problem list and medications reviewed. Last Labs: February 19 Active problems - Computerized Problem List is the source for the followin. Normocytic anemia persistent 2. Bladder cancer 3. Wound Right lower leg wound Managed by [facility] wound care 4. Carotid artery stenosis 5. CHF - Congestive Heart Failure ([facility] [id number]) 6. CAD - Coronary Artery Disease ([facility] [id number]) s/p 2 stents 7. COPD - Chronic Obstructive Pulmonary Disease ([facility] [id number]) 8. AF- Atrial Fibrillation ([facility] [id number]) 9. Sleep Apnea ([facility] [id number]) 10. Non-VA providers PCP-Dr.Glen Rojo Director Of Food And Nutrition Services-Dr.Nirav Partida Urologist-Dr. Markus Rojo--telephone # [phone] 11. Bilateral Cataracts exam 11/06/2009 12. Hypertensive retinopathy right eye 13. Colonic Polyps benign polyps next colo 04/17/2013 14. Hyperplasia of Prostate, unspecified, without Urinary obstruction and other 15. Spinal stenosis of lumbar region surgery l4-l5 decompression 06/01/08 16. Hypertensive heart disease with congestive heart failure (SNOMED CT [id number]) +microalbuminuria PHYSICAL EXAMINATION/DIRECTED EXAM: BP:120/56 (05/25/2024 13:39) Resp:20 (05/25/2024 13:39) Temp:97.6 F [36.4 C] (05/25/2024 13:39) Pulse:64 (05/25/2024 13:39) WEIGHT 05/25/2024 13:39 162.8(73.84)[22] 02/03/2024 10:36 157(71.21)[21] 11/25/2023 13:19 159(72.12)[21] Comfortable S1S2 no S3 lungs CTA Benign abdomen No edema ASSESSMENT & PLAN: 88 year old MALE SERVICE CONNECTED % - NONE FOUND [place] presents for 6-month follow-up. Interim relevant for persistent dizziness which comes and goes. Patient has been seen by ENT as well as physical therapy with no improvement. He has started to reduce his medications unwillingly stopping his CHF medication. With today's exam however the patient appears to be compensated without any physical signs as well as symptoms heart failure. He is requested to restart on the medication as soon as possible. Dizziness which he is has describes movements of his eyes (according to his council on aging director is a result of fatigue). As well as lightheadedness unrelated to movement or position. Patient was referred to Caroline Alfonso with [facility] for further evaluation. Plan of care discussed with patient who articulates understanding. Chronic issues reviewed briefly; no changes to management unless specified above. RTC semiannual TIME ATTESTATION: Time spent directly with the [...] of labs/studies and medication list. Upcoming Appointments: 06/21/2024 14:15 CWM/NO/PHYSICAL THERAPY 1 Med Reconciliation: Active Outpatient Medications (including Supplies): Active Outpatient Medications Status 1) ALBUTEROL 90MCG (CFC-F) 200D ORAL INHL INHALE 2 PUFFS ACTIVE BY MOUTH EVERY 4 HOURS NEEDED FOR BRONCHOSPASM 2) ATORVASTATIN CALCIUM 40MG TAB TAKE ONE-HALF TABLET BY ACTIVE MOUTH ONCE DAILY 3) BETHANECHOL CHLORIDE 25MG [...] TABLET BY ACTIVE MOUTH TWICE DAILY 8) TABLET TIRE LAYER USE TABLET TIRE LAYER DIRECTED BY ACTIVE (S) PROVIDER TO CRUSH TABLETS 9) TORSEMIDE 20MG TAB TAKE THREE TABLETS BY MOUTH ONCE ACTIVE (S) DAILY Active Non-VA Medications Status 1) Non-VA AMLODIPINE BESYLATE 5MG TAB 5MG BY MOUTH ONCE ACTIVE DAILY 2) Non-VA FERROUS SULFATE 325MG TAB 325MG BY MOUTH ONCE ACTIVE DAILY 3) Non-VA FINASTERIDE 5MG TAB 5MG BY MOUTH ONCE DAILY ACTIVE 4) Non-VA POTASSIUM CHLORIDE 10MEQ SA TAB 10MEQ BY MOUTH ACTIVE ONCE DAILY 5) Non-VA TADALAFIL 5MG TAB 5MG BY MOUTH ONCE DAILY ACTIVE 6) Non-VA TAMSULOSIN HCL 0.4MG CAP 0.4MG BY MOUTH ONCE ACTIVE DAILY 15 Total Medications Medication (Local) Status No local medications found. Medication (Remote) Status No remote medications found. /josue/ KARRI FARIA MD PHYSICIAN Signed: 05/25/2024 16:[address] [facility] May 25, 2024 01:41 PM PREVENTIVE MEDICIN E NURSING NOTE: LOCAL TITLE: CLINICAL REMINDERS/NURSING STANDARD TITLE: PREVENTIVE MEDICINE NURSING NOTE DATE OF NOTE: MAY 25, 2024@13:41 ENTRY DATE: MAY 25, 2024@13:41:30 AUTHOR: RUBY MERCHANT EXP COSIGNER: URGENCY: STATUS: COMPLETED Home Telehealth ([facility]HT) Ref[facility]: [facility]. Tdap Immunization: Defer due to a PRECAUTION Herpes Zoster (Shingles) Vaccine: The patient declines to receive the recommended dose of zoster (shingles) vaccine. Immunization: ZOSTER RECOMBINANT Refusal Reason: PATIENT DECISION Patient refuses all immunization(s) in the ZOSTER group Date Documented: 05/25/24 13:41 Eye Care At-Risk Screen : Patient identified to be at risk for the following eye condition(s): MACULAR DEGENERATION: Macular Degeneration Risk Factors Information: Reminder Term: VA-AMD RISK FACTORS Encounter Diagnosis: 05/25/2023@13:30 I25.10 (ICD-10-CM) Atherosclerotic Heart Disease of [place] Coronary Artery without Angina Pectoris rank: SECONDARY Prov. Narr. - CAD - Coronary Artery Disease ([facility] [id number]) Action: Referral Ordered: Comprehensive Eye Exam Patient has an exclusion to Tele-Eye Screening. Schedule for a comprehensive eye exam ordered. MED REC COMPLETED BY PROVIDER DURING THE VISIT. /josue/ RUBY MERCHANT LPN LPN Signed: 05/25/2024 13:43 RUBY MERCHANT JEFF
--- OUTSIDE RECORDS SUMMARY | 2024-07-19 15:39 | XMS_ITS | Encounter Summary ---
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 Name Role Phone KARRI FARIA Primary Care [...] Patient's Relationship to Policy [employer] ([id number]) PRESCRIPT ION [place] [facility] TIES Jan 05, 2009 [id number] [phone] NEVERSMICHAELA SEPH PATIENT [facility] Jun [facility], 2016 MEDICAR E SUPPLEM E [id number] NEVERSMICHAELA BROCK PATIENT MEDICARE (WN) MEDICARE (M) PART B October 28, 1999 PART B [id number] SISSY LAYADAMS PATIENT MEDICARE (WNR) MEDICARE (M) PART A October 28, 1999 PART A [id number] ADAMS SHEEHAN JR PATIENT UMR MEDIGAP PLAN C [facility] TIES Apr 05, 2007 [id number] NEVERS,MICHAELA SEPH PATIENT Selected Encounter This section includes the information on record at [place] for the Encounter. Date/Time Encounter Type Encounter Description Reason Provider Source May 16, 2024 10:00 AM OFF/OP EST OCTOBER X REQ PHY/QHP PRIMARY CARE/MEDICINE ICD-10-CM Z23 Encounter for immunization CHRYSTAL DAVILA IH Encounter Template Text not used by [place] Assessments - Encounter Diagnoses This section includes the primary and secondary diagnoses documented for the Encounter. Date/Time Primary/Secondary Diagnosis Diagnosis Name Provider Source May 16, 2024 10:32 AM PRIMARY Encounter for immunization JEN DAVILA [facility] Plan of Treatment: Future Appointments (+ 6 months) and Future Tests (+/- 45 days) The Plan of Treatment section includes future care activities for the patient from all [place] treatmentfacilities. This section includes future appointments and future orders which are active, pending or scheduled. Future Appointments This section includes appointments that were scheduled to occur 6 months from the date of the Encounter, up to a maximum of 20 appointments. The data comes from all [place] treatment facilities. Appointment Date/Time Appointment Type Appointme nt Facility Name May 25, 2024 01:00 PM AMBULATORY - MEDICINE IN [facility] May 31, 2024 08:15 AM [facility] Immunizations: All administered on the encounter date This section contains immunizations associated to the Encounter. Immunization Series Date Issued Reaction Comments COVID-19 (MODERNA), MRNA, LN P-S, PF, 50 MCG/0.5 ML (AGES 12+ YEARS) May 16, 2024 PNEUMOCOCCAL CONJUGATE PCV20 , POLYSACCHARIDE [id number] CONJUGATE, ADJUVANT, PF May 16, 2024 Social History: Smoking Status (Most current) and Tobacco Use (All prior to encounter date) This section includes the most current, and the historical, smoking and tobacco- related health factors from the [place] facility where the Encounter took place. Current Smoking Status This section includes the most current smoking, or tobacco-related health factor, from the [place] facility where the Encounter took place. Date/Time Current Smoking Status Comment Marilyn figueroa May 16, 2024 10:00 AM [place]-TOBACCO FORMER USER [facility] Tobacco Use History This section includes a history of the smoking, or tobacco-related health factors, that were collected on or before the date of the Encounter. The data comes from the [place] facility where the Encounter took place. Date/Time Smoking Status/Tobacco Use Comment F acility May 16, 2024 10:00 AM VA-TOBACCO QUIT 15 YRS OR MORE [facility] May 06, 2023 01:41 PM VA-TOBACCO FORMER USER [facility] May 06, 2023 01:41 PM VA-TOBACCO QUIT 15 YRS OR MORE [facility] [place] May 28, 2022 01:30 PM VA-TOBACCO FORMER USER [facility] May 28, 2022 01:30 PM VA-TOBACCO QUIT 15 YRS OR MORE [facility] [place] Jul 11, 2020 11:00 AM VA-TOBACCO FORMER USER [facility] Jul 11, 2020 11:00 AM VA-TOBACCO QUIT 15 YRS OR MORE [facility] [place] Mar 29, 2009 02:00 PM QUIT TOBACCO USE 1 -7 YEARS AGO stopped tobacco 5 years ago [facility] Mar 09, 2008 09:00 AM QUIT TOBACCO USE 1 -7 YEARS AGO [facility] Aug 19, 2007 01:00 PM QUIT TOBACCO USE 1 -7 YEARS AGO [facility] Aug 13, 2006 01:30 PM QUIT TOBACCO USE 1 -7 YEARS AGO stopped tobacco 4 years ago [facility] Aug 08, 2005 08:30 AM QUIT TOBACCO USE 1 -7 YEARS AGO [facility] Mar 06, 2005 01:30 PM QUIT TOBACCO USE IN PAST Y EAR Pt quit 2002 [facility] Dec 24, 2004 03:00 PM QUIT TOBACCO USE IN PAST YEAR [facility] Jul 30, 2004 02:00 PM HISTORY OF SMOKING Quit 3 years ago [facility] Advance Directives: All historical and current Section Date Range: From patient's date of to the date document was created. This section includes ALL of a patient's completed or amended [place] Advance and Rescinded Directives. The entries below indicate that a directive exists for the patient, but an actual copy is not included with this document. The data comes from all [facility]. Date Advance Directives Provider Source Mar 15, 2008 ADVANCE DIRECTIVE GERARDO MARSH [facility] LIZ CABRERA [facility] Encounter Notes: All associated encounter notes [...] Administered: May 16, 2024 10:00 Series: Booster Library Attendant: [employer] Lot: [id number] Exp Date: November 18, 2024 NDC: [id number] Admin Route/Site: INTRAMUSCULAR/RIGHT DELTOID Dosage: 0.5mL Vaccine Information Statement(s): COVID-19 MRNA VACCINE (12+ YRS) VACCINE VIS Apr 14, 2024 ([place]) Order By: Policy Administered By: Jen Davila Vaccine administered without complications. Pneumococcal Conjugate Vaccine (PCV15/PCV20): PCV20 (Prevnar 20) Administered: PNEUMOCOCCAL CONJUGATE PCV20, POLYSACCHARIDE [id number] CONJUGATE, ADJUVANT, PF Date Administered: May 16, 2024 10:00 Library Attendant: [employer] Lot: [id number] Exp Date: Aug 26, 2024 NDC: [id number] Admin Route/Site: INTRAMUSCULAR/LEFT DELTOID Dosage: 0.5mL Vaccine Information Statement(s): PNEUMOCOCCAL CONJUGATE ([id number]) VIS November 07, 2022 ([place]) Order By: Policy Administered By: Jen Davila [...] education CLINICAL REMINDERS Suicide Screen: C-SSRS Screening [place] Suicide Severity Rating Scale (C-SSRS) screener 1. [...] an Advance Directive on file at this [facility]. No updates are needed at this time. [...] from Dr. Isaac Salazar office located in [place] and last eye exam from [facility] office in [place] /josue/ LEN NEGRETE,RN-BC REGISTERED NURSE (RN) Signed: 05/16/2024 10:32 JEN DAVILA
--- OUTSIDE RECORDS SUMMARY | 2024-07-19 15:39 | XMS_ITS | Encounter Summary ---
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 Name Role Phone KARRI FARIA Primary [...] Patient's Relationship to Policy [employer] [facility] ([id number]) PRESCRIPT ION [place] RAMESH TIES Jan 05, 2009 [id number] NEVERSMICHAELA PATIENT [facility] MEDICARE SUPPLEMEN TAL [place] IND Jun 29, 2016 MEDICAR E SUPPLEM E [id number] NEVERSMICHAELA PATIENT MEDICARE (WNR) MEDICARE (M) PART A October 28, 1999 PART A [id number] ADAMS SHEEHAN JR PATIENT MEDICARE (WNR) MEDICARE (M) PART B October 28, 1999 PART B [id number] ADAMS SHEEHAN JR PATIENT UMR MEDIGAP PLAN C [facility] TIES Apr 05, 2007 [id number] NEVERSMICHAELA PATIENT Selected Encounter This section [...] 16, 2024 10:00 AM AMBULATORY - MEDICINE [facility] May 25, 2024 01:00 PM AMBULATORY - MEDICINE [facility] May 31, 2024 08:15 AM AMBULATORY - REHAB MEDICIN E [facility] Advance Directives: All historical and current [...] Mar 15, 2008 ADVANCE DIRECTIVE GERARDO MARSH [facility] Encounter Notes: All associated [...] CCC: SCHEDULING ADMINISTRATION: PLEASE CALL PT AT [phone] IN REF TO GETTING A COVID SHOT /josue/ CECI EVANS Medical Manager Payroll Signed: 04/29/2024 15:03 Receipt Acknowledged By: * AWAITING SIGNATURE * RUBY MERCHANT 04/29/2024 15:10 /josue/ LEN NEGRETE,RN-BC REGISTERED NURSE (RN) 04/29/2024 ADDENDUM STATUS: COMPLETED Hot 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 /josue/ GRETA CHUN Signed: 04/29/2024 15:26 JEN DAVILA [place] [facility] [place] [facility] Apr 29, 2024 03:01 PM ADMINISTRATIVE NOT E: LOCAL TITLE: CCC: SCHEDULING ADMINISTRATION STANDARD TITLE: ADMINISTRATIVE NOTE DATE OF NOTE: APR 29, 2024@15:01 ENTRY DATE: APR 29, 2024@15:01:19 AUTHOR: CECI EVANS EXP COSIGNER: URGENCY: STATUS: COMPLETED CCC: SCHEDULING ADMINISTRATION Has ADDENDA PLEASE CALL PT AT [phone] IN REF TO GETTING A COVID SHOT /josue/ CECI EVANS Medical Manager Payroll Signed: 04/29/2024 15:03 Receipt Acknowledged By: 04/29/2024 16:27 /josue/ RUBY MERCHANT LPN LPN 04/29/2024 15:10 /josue/ LEN NEGRETE,RN-BC REGISTERED NURSE (RN) 04/29/2024 ADDENDUM STATUS: COMPLETED Please book pt. a nursing appt. for his COVID vaccine in my next available slot. /josue/ NINA NEGRETEN,RN-BC REGISTERED NURSE (RN) Signed: 04/29/2024 15:11 Receipt Acknowledged By: 04/29/2024 15:27 /josue/ GRETA CHUN 04/29/2024 ADDENDUM STATUS: COMPLETED Hot 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 /josue/ GRETA CHUN Signed: 04/29/2024 15:26 [facility]
--- OUTSIDE RECORDS SUMMARY | 2024-07-19 15:39 | XMS_ITS | Encounter Summary ---
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 TIES Jan 05, 2009 [id number] NEVERSMICHAELA SEPH PATIENT [facility] MEDICARE SUPPLEMEN TAL [place] IND Jun 29, 2016 MEDICAR E SUPPLEM E [id number] NEVERSMICHAELA SEPH PATIENT MEDICARE (WNR) MEDICARE (M) PART A October 28, 1999 PART A [id number] ADAMS SHEEHAN JR PATIENT MEDICARE (WNR) MEDICARE (M) PART B October 28, 1999 PART B [id number] ADAMS SHEEHAN JR PATIENT UMR MEDIGAP PLAN C [facility] TIES Apr 05, 2007 [id number] NEVERS,MICHAELA SEPH PATIENT Selected Encounter This section includes the information on record at [place] for the Encounter. Date/Time Encounter Type Encounter Description Reason Provider Source November 25, 2023 01:20 PM Outpatient Encounter PRIMARY CARE/MEDICINE HOMERO FARIA Encounter Template Text not used by [place] [...] Feb 03, 2024 10:30 AM AMBULATORY MEDICINE [facility] May 16, 2024 10:00 AM AMBULATORY MEDICINE [facility] May 25, 2024 01:00 PM AMBULATORY MEDICINE [facility] Social History: Smoking Status (Most current) and Tobacco Use (All prior to encounter date) This section includes the most current, and the historical, smoking and tobacco- related health factors from the [place] facility where the Encounter took place. Current Smoking Status This section includes the most current smoking, or tobacco-related health factor, from the [place] facility where the Encounter took place. Date/Time Current Smoking Status Comment Facil ity May 06, 2023 01:41 PM VA-TOBACCO FORMER USER [facility] Tobacco Use History This section includes a history of the smoking, or tobacco-related health factors, that were collected on or before the date of the Encounter. The data comes from the [place] facility where the Encounter took place. Date/Time Smoking Status/Tobacco Use Comment F acility May 06, 2023 01:41 PM VA-TOBACCO QUIT 15 YRS OR MORE [facility] May 28, 2022 01:30 PM VA-TOBACCO FORMER USER [facility] May 28, 2022 01:30 PM VA-TOBACCO QUIT 15 YRS OR MORE [facility] Jul 11, 2020 11:00 AM VA-TOBACCO FORMER USER [facility] Jul 11, 2020 11:00 AM [place]-TOBACCO QUIT 15 YRS OR MORE [facility] Mar 29, 2009 02:00 PM QUIT TOBACCO USE 1 -7 YEARS AGO stopped tobacco 5 years ago [facility] Mar 09, 2008 09:00 AM QUIT TOBACCO USE 1 -7 YEARS AGO [facility] Aug 19, 2007 01:00 PM QUIT TOBACCO USE 1 -7 YEARS AGO [facility] Aug 13, 2006 01:30 PM QUIT TOBACCO USE 1 -7 YEARS AGO stopped tobacco 4 years ago [facility] Aug 08, 2005 08:30 AM QUIT TOBACCO USE 1 -7 YEARS AGO [facility] Mar 06, 2005 01:30 PM QUIT TOBACCO USE IN PAST Y EAR Pt quit 2002 [facility] Dec 24, 2004 03:00 PM QUIT TOBACCO USE IN PAST YEAR [facility] Jul 30, 2004 02:00 PM HISTORY OF SMOKING Quit 3 years ago [facility] Advance Directives: All historical and current Section [...] 2008 ADVANCE DIRECTIVE [facility]
== END 2024-07-19 08:01 | disposition home or self-care (01) ==
LOC: HO.LNP 08:00
PROVIDERS: Visit Provider Internal Medicine
DX: I11.0 Hypertensive heart disease with heart failure (principal); I50.21 Acute systolic (congestive) heart failure; E78.00 Pure hypercholesterolemia, unspecified; E53.8 Deficiency of other specified B group vitamins; D50.0 Iron deficiency anemia secondary to blood loss (chronic); R97.20 Elevated prostate specific antigen [PSA]; Z12.5 Encounter for screening for malignant neoplasm of prostate
CPT/HCPCS: 80053; 80061; 81003; 82607; 82746; 83540; 84153; 85025

== ENCOUNTER → 2024-07-30 23:59 | Outpatient (BNV) | payer MEDICARE, OTHER, SELFPAY ==
--- NOTE | 2024-08-03 14:19 | A.OFFVIS_ITS ---
Intake Visit Reasons: Remote device check- Medtronic Allergies No Known Allergies [No Known Allergies*] Allergy (Verified 05/06/24 13:14) [facility] Medical History COPD (chronic obstructive pulmonary disease) Raynaud disease Anxiety Respiratory failure COPD (chronic obstructive pulmonary disease) Cardiac pacemaker in situ Bradycardia Malignant neoplasm of lateral wall of urinary bladder COPD (chronic obstructive pulmonary disease) Hyperlipidemia HTN (hypertension) Pulmonary hypertension (HFpEF) heart failure with preserved ejection fraction CAD (coronary artery disease) Chronic atrial fibrillation Surgical History History of placement of leadless cardiac pacemaker Stented coronary artery H/O transurethral resection of prostate History of prostate surgery History of back surgery History of appendectomy Family History Father Lung cancer Cancer Mother No problems noted. Social History Household Members: Spouse Housing: House Are you a primary gericare aide teacher to a significant other at home: No Do you presently have visiting nurse or other home services: Yes (Visiting nurse [employer], PT [facility], Wound center on Thu) Alcohol intake: never Patient Tobacco Use Status: Former Tobacco user Second Hand Smoke Exposure: No Advance Directives Date on File: 09/17/21 service: Yes Current occupational status: retired Office Procedures Cardiac Device Check Cardiac Device Check Details: Remote pacemaker report generated 07/30/2024. Pacemaker function is adequate [id number] Cardiac Device Interrogation, pacemaker Procedure code (CPT) selection complete Assessment & Plan Assessment & Plan (1) Cardiac pacemaker in situ: Comment: Medtronic leadless pacemaker implanted on April 17 Code(s): Z95.0 - Presence of cardiac pacemaker Category: Medical Plan: See above Coding Level of Care Code Procedure Only Diagnoses Cardiac pacemaker in situ Z95.0 CPT Codes Cardiac Device Check - Cardiac Device 12: [id number] Cardiac Device Interrogation, pacemaker ([id number])
== END ==
PROVIDERS: PCP Internal Medicine; Visit Provider Internal Medicine Cardiovascular Disease
DX: Z45.018 Encounter for adjustment and management of other part of cardiac pacemaker (principal)
CPT/HCPCS: 93294

== ENCOUNTER 2024-08-09 13:25 | Outpatient (AMB) | payer MEDICARE, OTHER, SELFPAY ==
[2024-08-09 13:33] VITALS: BP 122/60; BMI 21.7
--- NOTE | 2024-08-09 13:33 | MHC.OFFVIS ---
Vital Signs 08/09/24 13:33 Height 6 ft 1 in Weight 164 lb 3.91 oz BMI 21.7 BP 122/60 Blood Pressure Location Lt brachial Position Sitting Intake Visit Reasons: COPD Intake Note: pt is here for follow up and states he is always short of breath, but using BIPAP at night Director Of Audiology Required: No Allergies No Known Allergies [No Known Allergies*] Allergy (Verified 08/09/24 13:38) Medication List - Last Reconciled 08/09/24 by Dawn Vila MD albuterol sulfate 90 mcg/actuation 2 puffs inhalation Q6H PRN atorvastatin 20 mg PO DAILY bethanechol chloride 100 mg (2 x 50 mg) PO BID 90 days ferrous sulfate 325 mg PO DAILY finasteride 5 mg PO DAILY fluticasone propionate 50 mcg/actuation 1 spray intranasal DAILY potassium chloride ER 20 mEq (2 x 10 mEq) PO DAILY rivaroxaban (Xarelto) 20 mg PO DAILY sacubitril-valsartan 24-26 mg (Entresto) 1 tab See Protocol PO BID tadalafil 5 mg PO DAILY 90 days tamsulosin 0.4 mg PO DAILY 90 days tiotropium-olodaterol 2.5-2.5 mcg/actuation (Stiolto Respimat) 2 puffs inhalation Q24H 30 days torsemide 20 mg PO TID Do you need a note to return to daycare/school/sports/work: No HPI HPI COPD: Details: ADAMS IS 88 YEARS OLD VERY JOLLY AND PLEASANT GENTLEMAN. HE COMES AFTER 4 MONTHS. FOR HIS ROUTINE FOLLOW-UP THESE DAYS HE IS USING BIPAP VERY REGULARLY EVERY NIGHT AND SLEEPS GOOD. HE USES BIPAP UP TO 8 HOURS PER NIGHT. HAS NO ISSUES WITH THE BIPAP. HE WAS HAVING CONSIDERABLE AIR LEAK BUT SINCE HE GOT HIS NEW MASK ABOUT 1 WEEK AGO THERE IS NO AIR LEAK AND HIS DEVICE IS INDICATING THAT , IS FUNCTIONING GOOD ADAMS USES STIOLTO 2 PUFFS IN THE MORNING AND 1 OR 2 PUFFS OF ALBUTEROL BEFORE HE GOES TO SLEEP. AGE-RELATED, SLOW WALKING, ,AND SOMEWHAT SLOW TALKING BUT MENTALLY HE IS VERY CLEAR AND PLEASANT. [facility] Medical History COPD (chronic obstructive pulmonary disease) Raynaud disease Anxiety Respiratory failure COPD (chronic obstructive pulmonary disease) Cardiac pacemaker in situ Bradycardia Malignant neoplasm of lateral wall of urinary bladder COPD (chronic obstructive pulmonary disease) Hyperlipidemia HTN (hypertension) Pulmonary hypertension (HFpEF) heart failure with preserved ejection fraction CAD (coronary artery disease) Chronic atrial fibrillation Surgical History History of placement of leadless cardiac pacemaker Stented coronary artery H/O transurethral resection of prostate History of prostate surgery History of back surgery History of appendectomy Family History Father Lung cancer Cancer Mother No problems noted. Social History Household Members: Spouse Housing: House Are you a primary urgent care technician to a significant other at home: No Do you presently have visiting nurse or other home services: Yes (Visiting nurse [employer], [facility], Wound center on Thu) Alcohol intake: never Patient Tobacco Use Status: Former Tobacco user Second Hand Smoke Exposure: No Advance Directives Date on File: 09/17/21 service: Yes Current occupational status: retired Review of Systems Const Reports fatigue, Reports lethargy and Reports weakness Eyes Reports no additional complaints ENT Reports no additional complaints Card Denies chest pain, Reports irregular heart rhythm, Reports leg edema and Reports dyspnea (Even at rest) Resp Reports as per HPI and Reports dyspnea (Even at rest) GI Reports no additional complaints Reports hematuria (Off and on) and Reports urinary incontinence Musc Reports abnormal gait (Much impaired, mostly in wheelchair) and Reports muscle weakness Skin/Breast Reports system reviewed and no additional complaints, except as documented Neuro Reports abnormal gait (Much impaired, mostly in wheelchair) and Reports weakness Psych Reports anxiety Endo Reports fatigue Physical Exam Vital Signs: BMI result Body Mass Index 15.4 Const General: no acute distress (But very anxious and states that he cannot catch his breath), alert and awake Orientation/consciousness: patient oriented x3 HEENT Head: Yes normal to inspection General nose exam: No nasal polyps present and No nasal discharge present Face and sinus: Yes sinuses nontender Mouth: oropharynx normal Throat: Yes posterior oropharynx normal Eyes General: appearance normal, both eyes and all related structures Neck Neck: Yes normal visual inspection, Yes no lymphadenopathy, Yes trachea midline and Yes no JVD Thyroid: Thyroid normal Chest Chest palpation & inspection: normal inspection of the chest, normal palpation of entire chest wall and no tenderness Resp Other: Percussion note resonant, breath sounds are very distant with prolonged expiratory phase. No wheezes, or creps. o2 SAT= 90 % ( AFTER WARMING HIS HAND ) Cardio Rhythm: abnormal rhythm (Atrial fib) Heart sounds: no gallops and no murmurs GI Palpation (GI): Soft to palpation, nontender, No hepatosplenomegaly present and no masses Auscultation: normal bowel sounds Back/Spine/Pelvis Thoracic/Lumbar Spine: thoracic and lumbar spine normal to inspection and thoraco-lumbar ROM limited Skin General skin exam: no rashes or lesions noted Neuro General: patient oriented x3, No gait normal (Non ambulatory, in wheelchair) and no focal motor deficits Cranial nerves: Yes CN's II-XII intact bilaterally Extrem General: Yes normal to inspection, Yes no calf tenderness and Yes edema (Chronic stasis type edema of the legs, not much at this time.) Right upper extremity: Extremity exam: right hand (Both hands are cold with purplish discoloration of the fingernails) Psych Speech and movement: Normal speech and movement present Affect: Anxious affect present Results Reviewed Results Reviewed: IS THE COMPLIANCE REPORT FOR THE LAST 30 NIGHTS IS REVIEWED. HE HAS USED 30/30 NIGHTS AND AVERAGE USE IT PER NIGHT 8 HOURS 11 MINUTES WHICH IS EXCELLENT. PRESSURE SETTING IS 14/7 CM. THERE HAVE BEEN AIR LEAK BUT HE SAY IS THAT SINCE HE GOT HIS NEW MASK IT INDICATES THAT THERE IS VERY LITTLE AIR LEAK. HE STILL HAS SOME RESIDUAL OBSTRUCTIVE ACTIVITY WITH AHI 31.9, THIS IS PARTLY DUE TO CENTRAL APNEAS AND PARTLY DUE TO AIR LEAKAGE. Assessment & Plan Assessment & Plan (1) COPD (chronic obstructive pulmonary disease): Comment: THIS GENTLEMAN DOES HAVE RATHER SEVERE OBSTRUCTIVE AIRWAY DISORDER. IT IS REMAINING STABLE WITH CURRENT MEDICAL REGIMEN. Code(s): J44.9 - Chronic obstructive pulmonary disease, unspecified Category: Medical Plan: CONTINUE TO USE STIOLTO RESPIMAT 2 INHALATIONS DAILY AND ALBUTEROL HFA 1 OR 2 PUFFS Q 6 HOURS ONLY P.R.N. (2) Congestive heart failure: Comment: CHRONIC CARDIOMYOPATHY AND CONGESTIVE HEART FAILURE , SEEMS TO BE UNDER GOOD CONTROL . BEING FOLLOWED BY CARDIOLOGY . Code(s): I50.9 - Heart failure, unspecified Category: Medical Plan: CONTINUE REGULAR FOLLOWUPS WITH CARDIOLOGY SERVICE (3) Anxiety: Comment: PATIENT DOES HAVE HISTORY OF ANXIETY IN THE PAST HE IS VERY CALM AND QUIET AT THIS TIME, DOES NOT NEED TO USE ANY ANXIOLYTIC AGENT.. Code(s): F41.9 - Anxiety disorder, unspecified Category: Medical Plan: PATIENT REASSURED, HAD A GOOD CONVERSATION WITH HIM AND HE DOES NOT NEED ANY ANXIOLYTIC MEDS (4) Respiratory failure: Comment: Patient has past history of respiratory failure , and has been treated with BiPAP 14/7 cm. He had stopped using the BiPAP. And thus was prescribed only O2 supplementation at night. However he gave up on using oxygen and went back to using BiPAP. He claims that since he is using BiPAP regularly he feels better., and he is sleeping well. Daytime O2 sats are normal. Code(s): J96.90 - Respiratory failure, unspecified, unspecified whether with hypoxia or hypercapnia Category: Medical Plan: Continue using BiPAP with pressure setting 14/7 cm at night Coding Level of Care Code Est Pt Level 3 (45671) Diagnoses COPD (chronic obstructive pulmonary disease) J44.9 Congestive heart failure I50.9 Anxiety F41.9 Respiratory failure J96.90
== END 2024-08-09 13:53 | disposition home or self-care (01) ==
PROVIDERS: PCP Internal Medicine; Visit Provider Internal Medicine
DX: J44.9 Chronic obstructive pulmonary disease, unspecified (principal); I50.9 Heart failure, unspecified; F41.9 Anxiety disorder, unspecified; J96.90 Respiratory failure, unspecified, unspecified whether with hypoxia or hypercapnia
CPT/HCPCS: 99213

== ENCOUNTER → 2024-08-09 13:25 | Outpatient (BNVA) | payer MEDICARE, OTHER, SELFPAY | PROVIDERS: PCP Internal Medicine; Visit Provider Internal Medicine | DX: J44.9 Chronic obstructive pulmonary disease, unspecified (principal); J96.90 Respiratory failure, unspecified, unspecified whether with hypoxia or hypercapnia; I50.9 Heart failure, unspecified; F41.9 Anxiety disorder, unspecified | CPT/HCPCS: 99212 ==

== ENCOUNTER 2024-08-26 13:05 | Outpatient (REF) | payer MEDICARE, OTHER, SELFPAY ==
[2024-08-26 13:27] LABS: Blood Urea Nitrogen 48 mg/dL (9-16); Estimated Glomerular Filt Rate > 60
--- OUTSIDE RECORDS SUMMARY | 2024-08-26 15:10 | XMS_ITS | Continuity of Care Document ---
Author Name [facility] Organization [facility] Care Team Providers Care Group Work Program Aide Name Role Phone [facility] Unavailable Unavailable Problems Combined list of problems from Department of Defense and Veterans Affairs facilities. It does not include entries that were removed or entered in error. Problem Status Onset Date Problem Type Date of Resolution Comments Source Colonic Polyps Active 05/23/20 08 Condition Sep 21, 2008 Entered By: PRIYANKA LITTLE Comment: benign polyps next colo 04/17/2013 [place] AF- Atrial Fibrillation ([facility] [id number]) Active Condition [facility] Bilateral Cataracts Active Condition Dec 10, 2009 Entered By: PRIYANKA LITTLE Comment: exam 11/06/2009 [place] Bladder cancer Active Condition [facility] CAD - Coronary Artery Disease ([facility] [id number]) Active Condition Jul 11, 2020 Entered By: TEE GRAVES Comment: s/p 2 stents [facility] Carotid artery stenosis Active Condition [facility] CHF - Congestive Heart Failure ([facility]CT 17340422) Active Condition [facility] COPD - Chronic Obstructive Pulmonary Disease ([facility] [id number]) Active Condition [facility] Hyperplasia of Prostate, unspecified, without Urinary obstruction and other lowe Active Condition [place] Hypertensive heart disease with congestive heart failure (SNOMED CT [id number]) Active Condition Sep 15, 2022 Entered By: HOMERO FARIA Comment: +microalbuminuri a [place] Hypertensive retinopathy Active Condition Dec 10, 2009 Entered By: PRIYANKA LITTLE Comment: right eye [place] Non-VA providers Active Condition Jul 11, 2020 Entered By: TEE GRAVES Comment: PCP-Dr.Glen Resendez 2020 Entered By: TEE GRAVES Comment: Equipment Monitor Phototypesetting-Dr. Albert New 2020 Entered By: TEE GRAVES Comment: Urologist-Dr. Markus Bruce 2022 Entered By: JEN DAVILA Comment: Dr. Gregory Rojo--telep [facility] # [phone] [facility] Normocytic anemia Active Condition Sep 08, 2022 Entered By: HOMERO FARIA Comment: persistent [place] Sleep Apnea (SCT [id number]) Active Condition [facility] Spinal stenosis of lumbar region Active Condition Sep 21, 2008 Entered By: PRIYANKA LITTLE Comment: surgery l4-l5 decompression 06/01/08 [place] Wound Active Condition Aug 01 Entered By: TEE GRAVES Comment: Right lower leg woundFeb 2020 Entered By: TEE GRAVES Comment: Managed by [facility] wound [facility] [place] [facility] Diagnosis: ICD-10-CM R42 Dizziness and giddiness Active Diagnosis [facility] [place] Diagnosis: ICD-10-CM Z23 Encounter for immunization Active Diagnosis [place] Diagnosis: ICD-10-CM R53.83 Other fatigue Active Diagnosis [place] Diagnosis: ICD-10-CM Z91.89 Oth personal risk factors, not elsewhere classified Active Diagnosis [place] Diagnosis: ICD-10-CM R63.4 Abnormal weight loss Active Diagnosis [place] Diagnosis: ICD-10-CM Z04.89 Encounter for examination and observation for oth reasons Active Diagnosis [place] Diagnosis: ICD-10-CM Z00.01 Encounter for general adult medical exam w abnormal findings Active Diagnosis [place] Medications Combined list of outpatient medications from [...] [facility] RESPIR ATORY (INHAL ATION) 05/25/2024 [id number] BIENVENIDOOSVALDOLINARI O 2022 3 [place] AMLODIPINE BESYLATE 5MG TAB TAKE ONE TABLET BY MOUTH ONCE DAILY ORAL ACTIVE TEE GRAVES 2020 [place] ATORVASTATI N CA 40MG TAB TAKE ONE-HALF TABLET BY MOUTH ONCE DAILY ORAL SUSPEND ED 06/03/2025 [id number] 5 RA FREDERICK DE SOUZA 2024 45 [place] ATORVASTATI N CA 40MG TAB TAKE ONE-HALF TABLET BY MOUTH ONCE DAILY ORAL DISCONT INUED 08/20/2024 [id number] 4 BIENVENIDOOSVALDOLINARI O 2023 45 [place] ATORVASTATI N CA 40MG TAB TAKE ONE-HALF TABLET BY MOUTH ONCE DAILY ORAL DISCONT INUED 08/20/2023 [id number] ARTEM FARIAARI O 2023 23 [place] BETHANECHOL CL 25MG TAB TAKE TWO TABLETS BY MOUTH TWICE DAILY FOR URINARY RETENTIO N ORAL SUSPEND ED 07/22/2025 [id number] 5 RA FREDERICK DE SOUZA 2024 360 [facility] BETHANECHOL CL 25MG TAB TAKE TWO TABLETS BY MOUTH TWICE DAILY FOR URINARY RETENTIO N ORAL DISCONT INUED 11/09/2024 [id number] 5 ARTEM FARIAARI O 2023 360 [facility] BETHANECHOL CL 25MG TAB TAKE TWO TABLETS BY MOUTH TWICE DAILY FOR URINARY RETENTIO N ORAL DISCONT INUED 07/23/2024 [id number] ADDIS FARAH MD 2023 360 [facility] FERROUS SO4 325MG TAB TAKE ONE TABLET BY MOUTH ONCE DAILY ORAL ACTIVE MELANIA MCGUIRE [address] [facility] FINASTERIDE 5MG TAB TAKE ONE TABLET BY MOUTH ONCE DAILY FOR PROSTATE ORAL SUSPEND ED 12/30/2024 [id number] 5 BIENVENIDO, APOLINARI O 2023 90 [place] FINASTERIDE 5MG TAB TAKE ONE TABLET BY MOUTH ONCE DAILY FOR PROSTATE ORAL DISCONT INUED 12/17/2023 [id number] 4 BIENVENIDO APOLINARI O 2022 90 [place] FINASTERIDE 5MG TAB TAKE ONE TABLET BY MOUTH ONCE DAILY ORAL ACTIVE MANSIU ,TEE 2020 [place] OLODATEROL 2.5MCG/TIOT ROPIUM 2.5MCG/ACTU AT [facility],ORAL,6 0D,4GM INHALE 2 PUFFS (1 DOSE) BY MOUTH ONCE DAILY RESPIR ATORY (INHAL ATION) SUSPEND ED 03/05/2025 [id number] 5 BIENVENIDO APOLINARI O 2023 3 [place] OLODATEROL 2.5MCG/TIOT ROPIUM 2.5MCG/ACTU AT [facility],ORAL,6 0D,4GM INHALE 2 PUFFS (1 DOSE) BY MOUTH ONCE DAILY RESPIR ATORY (INHAL ATION) DISCONT INUED 05/25/2024 [id number] 4 NIVIA FARIA O 2022 3 I[place] POTASSIUM CHLORIDE 10MEQ TAB,SA TAKE ONE TABLET BY MOUTH ONCE DAILY ORAL ACTIVE ELY ,TEE [place] RIVAROXABAN 15MG TAB TAKE ONE TABLET BY MOUTH ONCE DAILY TO PREVENT BLOOD CLOTS WITH FOOD DOSE REDUCTIO N:DISCON TINUE 20MG TABS) ORAL SUSPEND ED 06/24/2025 [id number] 5 BIENVENIDONIVIA O 2024 90 [place] RIVAROXABAN 15MG TAB TAKE ONE TABLET BY MOUTH ONCE DAILY TO PREVENT BLOOD CLOTS WITH FOOD DOSE REDUCTIO N:DISCON TINUE 20MG TABS) ORAL DISCONT INUED 07/10/2024 [id number] OSVALDO FARIALINARI O 2023 90 [place] RIVAROXABAN 20MG TAB TAKE ONE TABLET BY MOUTH ONCE DAILY WITH FOOD ORAL DISCONT INUED (EDIT) 05/25/2024 [id number] 3 BIENVENIDO, APOLINARI O 2022 90 [place] SACUBITRIL 24MG/VALSAR JAQUEZ 26MG TAB TAKE 1 TABLET BY MOUTH TWICE DAILY ORAL SUSPEND ED 03/05/2025 [id number] 5 BIENVENIDO, APOLINARI O 2023 180 [place] SACUBITRIL 24MG/VALSAR JAQUEZ 26MG TAB TAKE 1 TABLET BY MOUTH TWICE DAILY ORAL DISCONT INUED 03/22/2024 [id number] 4 BIENVENIDO, APOLINARI O 2022 180 [place] TADALAFIL 5MG TAB TAKE ONE TABLET BY MOUTH ONCE DAILY ORAL ACTIVE BIENVENIDO, APOLINARI O 2023 [place] TAMSULOSIN HCL 0.4MG CAP TAKE 1 CAPSULE BY MOUTH ONCE DAILY ORAL ACTIVE TEE GRAVES 2020 [place] TORSEMIDE 20MG TAB TAKE THREE TABLETS BY MOUTH ONCE DAILY ORAL SUSPEND ED 03/05/2025 [id number] 5 BIENVENIDO, APOLINARI O 2023 270 [place] TORSEMIDE 20MG TAB TAKE THREE TABLETS BY MOUTH ONCE DAILY ORAL DISCONT INUED 05/25/2024 [id number] 4 BIENVENIDO, APOLINARI O 2022 270 [place] Immunizations Combined list of available immunizations from the Department of Defense and Veterans Affairs facilities. Immunization Series Date Given Administered By Site Reaction Lot Number CVX Code Drug Alternative Dispute Resolution Mediator Status Comments Source COVID-19 (MODERNA), MRNA, LNP-S, PF, 50 MCG/0.5 ML (AGES 12+ YEARS) 2023 CHRYSTAL DAVILA RIGHT DELTO ID [id number] 312 complet ed [place] PNEUMOCOCCAL CONJUGATE PCV20, POLYSACCHARID E [id number] CONJUGATE, ADJUVANT, PF 2023 CHRYSTAL DAVILA LEFT DELTO ID [id number] 216 complet ed [facility] INFLUENZA, UNSPECIFIED FORMULATION 2023 88 complet ed [facility] RSV, BIVALENT, PROTEIN SUBUNIT RSVPREF, DILUENT RECONSTITUTED , 0.5 ML, PF 2022 GIOVANNICHRYSTAL Lonny Zhu RIGHT DELTO ID [id number] 305 complet ed [id number] EXP. [id number] EXP [place] COVID-19 (MODERNA), MRNA, LNP-S, PF, 50 MCG/0.5 ML (AGES 12+ YEARS) 1 2022 CHRYSTAL DAVILA Lonny Zhu LEFT DELTO ID [id number] 312 complet ed [place] INFLUENZA, UNSPECIFIED FORMULATION 2022 88 complet ed [facility] COVID-19 (MODERNA), MRNA, LNP-S, BIVALENT BOOSTER, PF, 50 MCG/0.5 ML OR 25MCG/0.25 ML DOSE 1 2022 FLORES LOZA LEFT ARM [id number] 229 complet ed [facility] [place] DOSE 3 2020 207 complet ed MOD; [id number]; 2 [facility] INFLUENZA VACCINE, QUADRIVALENT, ADJUVANTED 2020 205 complet ed [facility] COVID-19 (MODERNA), MRNA, LNP-S, PF, 100 MCG/0.5 ML DOSE 2 2020 207 complet ed MOD; [id number]; 1 [facility] COVID-19 (MODERNA), MRNA, LNP-S, PF, 100 MCG/0.5 ML DOSE 1 2020 207 complet ed MOD; [id number]; 1 [place] INFLUENZA, UNSPECIFIED FORMULATION 2019 [...] Feb 03, 2024 11:33 AM Reporting Lab: [facility] [place] [facility] [address] [facility] [address] Performing Lab: [facility] [place] [facility] [address] [facility] [address] [facility] [facility] TSH THYROTROPIN [UNITS/VOLU ME] IN SERUM OR PLASMA 2.33 u[IU]/ mL 0.35 - 5.00 02/02 Specimen Type: SERUM No comment entered. Ordering Provider: NIKKI FARIA Report Released Date/Time: Feb 03, 2024 11:33 AM Reporting Lab: [facility] [place] [facility] [address] [facility] [address] Performing Lab: [facility] [place] [facility] [address] [facility] [address] [facility] [place] [facility] VITAMIN D (25-OH) 25-HYDROXYV ITAMIN D3 [MASS/VOLUM E] IN SERUM OR PLASMA 30 ng/mL 20 - 50 02/02 Specimen Type: SERUM No comment entered. Ordering Provider: NIKKI FARIA Report Released Date/Time: Feb 03, 2024 11:33 AM Reporting Lab: [facility] [place] [facility] [address] [facility] [address] Performing Lab: [facility] [place] [facility] [address] [facility] [address] [facility] [place] [facility] FOLATE (WROX) FOLATE [MASS/VOLUM E] IN SERUM OR PLASMA 6.28 ng/mL 5.2 02/02 Specimen Type: SERUM No comment entered. Ordering Provider: NIKKI FARIA Report Released Date/Time: Feb 03, 2024 11:34 AM Reporting Lab: [facility] [place] [facility] [address] [facility] [address] Performing Lab: [facility] [place] [facility] [address] [facility] [address] [facility] [place] [facility] FERRITIN FERRITIN [MASS/VOLUM E] IN SERUM OR PLASMA 110 ng/mL 20 - 300 02/02 Specimen Type: SERUM No comment entered. Ordering Provider: NIKKI FARIA Report Released Date/Time: Feb 03, 2024 11:34 AM Reporting Lab: [facility] [place] [facility] [address] [facility] [address] Performing Lab: [facility] [place] [facility] [address] [facility] [address] [facility]TRN [facility] LIPID PANEL FASTING CHOLESTEROL [MASS/VOLUM E] IN SERUM OR PLASMA 98 mg/dL 02/02 Specimen Type: SERUM No comment entered. Ordering Provider: NIKKI FARIA Report Released Date/Time: Feb 03, 2024 11:33 AM Reporting Lab: [facility] [place] [facility] [address] [facility] [address] Performing Lab: [facility] [place] [facility] [address] [facility] [address] [facility] LIPID PANEL FASTING TRIGLYCERID E [MASS/VOLUM E] IN SERUM OR PLASMA 65 mg/dL 0 - 150 02/02 Specimen Type: SERUM No comment entered. Ordering Provider: NIKKI FARIA Report Released Date/Time: Feb 03, 2024 11:33 AM Reporting Lab: [facility] [address] [facility] [address] Performing Lab: [facility] [address] [facility] [address] [facility] LIPID PANEL FASTING CHOLESTEROL IN LDL [MASS/VOLUM E] IN SERUM OR PLASMA BY CALCULATION 41 mg/dL 0 - 129 02/02 Specimen Type: SERUM No comment entered. Ordering Provider: NIKKI FARIA Report Released Date/Time: Feb 03, 2024 11:33 AM Reporting Lab: [facility]N [facility] [address] [facility] [address] Performing Lab: [facility] [address] [facility] [address] [facility] LIPID PANEL FASTING CHOLESTEROL .TOTAL/CHOL ESTEROL IN HDL [MASS RATIO] IN SERUM OR PLASMA 2.2 02/02 Specimen Type: SERUM No comment entered. Ordering Provider: NIKKI FARIA Report Released Date/Time: Feb 03, 2024 11:33 AM Reporting Lab: [facility] [place] [facility] [address] [facility] [address] Performing Lab: [facility]ITAL[facility] [address] [facility] [address] [facility]TRN [facility] LIPID PANEL FASTING CHOLESTEROL IN HDL [MASS/VOLUM E] IN SERUM OR PLASMA 44 mg/dL 40 - 60 02/02 Specimen Type: SERUM No comment entered. Ordering Provider: NIKKI FARIA Report Released Date/Time: Feb 03, 2024 11:33 AM Reporting Lab: [facility] [place] [facility] [address] [facility] [address] Performing Lab: [facility] [place] [facility] [address] [facility] [address] [facility] [place] [facility] BASIC METABOLIC PANEL (fasting) UREA NITROGEN [MASS/VOLUM E] IN SERUM OR PLASMA 44 mg/dL 7 - 25 02/02 H Specimen Type: SERUM No comment entered. Ordering Provider: NIKKI FARIA Report Released Date/Time: Feb 03, 2024 11:33 AM Reporting Lab: [facility] [place] [facility] [address] [facility] [address] Performing Lab: [facility] [place] [facility] [address] [facility] [address] [facility] [place] [facility] BASIC METABOLIC PANEL (fasting) GLUCOSE [MASS/VOLUM E] IN SERUM OR PLASMA 91 mg/dL 65 - 100 02/02 Specimen Type: SERUM No comment entered. Ordering Provider: NIKKI FARIA Report Released Date/Time: Feb 03, 2024 11:33 AM Reporting Lab: [facility] [place] [facility] [address] [facility] [address] Performing Lab: [facility] [place] [facility] [address] [facility] [address] [facility] [place] [facility] BASIC METABOLIC PANEL (fasting) SODIUM [MOLES/VOLU ME] IN SERUM OR PLASMA 137 mmol/L 135 - 145 02/02 Specimen Type: SERUM No comment entered. Ordering Provider: NIKKI FARIA Report Released Date/Time: Feb 03, 2024 11:33 AM Reporting Lab: [facility] [place] [facility] [address] [facility] [address] Performing Lab: [facility] [place] [facility] [address] [facility] [address] [facility] [place] [facility] BASIC METABOLIC PANEL (fasting) POTASSIUM [MOLES/VOLU ME] IN SERUM OR PLASMA 4.1 mmol/L 3.5 - 5.0 02/02 Specimen Type: SERUM No comment entered. Ordering Provider: NIKKI FARIA Report Released Date/Time: Feb 03, 2024 11:33 AM Reporting Lab: [facility]USE[facility] [address] [facility] [address] Performing Lab: [facility]ENTERUSE[address] [address] [facility] TRN [facility]ENTERUSE [facility] BASIC METABOLIC PANEL (fasting) CHLORIDE [MOLES/VOLU ME] IN SERUM OR PLASMA 105 mmol/L 100 - 110 02/02 Specimen Type: SERUM No comment entered. Ordering Provider: NIKKI FARIA Report Released Date/Time: Feb 03, 2024 11:33 AM Reporting Lab: [facility] TRN [address] [address] Performing Lab: [facility] TRN [facility]ENTERUSE[address] [address] [facility]ITALRENCOM[facility] BASIC METABOLIC PANEL (fasting) CARBON DIOXIDE, TOTAL [MOLES/VOLU ME] IN SERUM OR PLASMA 24 meq/L 20 - 30 02/02 Specimen Type: SERUM No comment entered. Ordering Provider: NIKKI FARIA Report Released Date/Time: Feb 03, 2024 11:33 AM Reporting Lab: [facility]ITALREVERGRE[facility] MEDICAL CENTERTRN [facility]ENTERUSE[address] [address] Performing Lab: [facility]ENTERUSE[address] [address] [facility]ITALRENCOM[facility] BASIC METABOLIC PANEL (fasting) CREATININE [MASS/VOLUM E] IN SERUM OR PLASMA 1.12 mg/dL 0.50 - 1.40 02/02 Specimen Type: SERUM No comment entered. Ordering Provider: NIKKI FARIA Report Released Date/Time: Feb 03, 2024 11:33 AM Reporting Lab: [facility]ITALREVERGREEN MEDICAL CENTERTRN [facility]ENTERUSE[address] [address] Performing Lab: [facility] [address] [facility] [address] [facility]ENTERUSE [facility] BASIC METABOLIC PANEL (fasting) GLOMERULAR FILTRATION RATE/1.73 SQ M.PREDICTED [VOLUME RATE/AREA] IN SERUM, PLASMA OR BLOOD BY CREATININE- BASED FORMULA (CKD-EPI 2020) 63 mL/min 60 02/02 Specimen Type: SERUM No comment entered. Ordering Provider: NIKKI FARIA Report Released Date/Time: Feb 03, 2024 11:33 AM Reporting Lab: [facility] [place] [facility] [address] [facility] [address] Performing Lab: [facility]ITALREVERGREEN MEDICAL CENTERTRN [facility]USEWE[facility] [address] [facility] [address] [facility] LIVER FUNCTION PROTEIN [MASS/VOLUM E] IN SERUM OR PLASMA 7.4 g/dL 6.0 - 8.3 02/02 Specimen Type: SERUM No comment entered. Ordering Provider: NIKKI FARIA Report Released Date/Time: Feb 03, 2024 11:33 AM Reporting Lab: [facility] TRN [facility] [address] [facility] [address] Performing Lab: [facility]RL TRN [facility]USE[facility] [address] [facility] [address] [facility] LIVER FUNCTION ALBUMIN [MASS/VOLUM E] IN SERUM OR PLASMA 4.1 g/dL 3.5 - 5.0 02/02 Specimen Type: SERUM No comment entered. Ordering Provider: NIKKI FARIA Report Released Date/Time: Feb 03, 2024 11:33 AM Reporting Lab: [facility] TRN [facility]ENTERUSETS [facility] [address] [facility] [address] Performing Lab: [facility]ITALREVERGRE[facility] MED[facility] CENTERTRN [facility]ENTERUSETS [facility] [address] [facility] [address] [facility] LIVER FUNCTION ALKALINE PHOSPHATASE [ENZYMATIC ACTIVITY/VO LUME] IN SERUM OR PLASMA 64 U/L 40 - 150 02/02 Specimen Type: SERUM No comment entered. Ordering Provider: NIKKI FARIA Report Released Date/Time: Feb 03, 2024 11:33 AM Reporting Lab: [facility] [place] [facility] [address] [facility] [address] Performing Lab: [facility] [place] [facility] [address] [facility] [address] [facility] [place] [facility] LIVER FUNCTION ASPARTATE AMINOTRANSF ERASE [ENZYMATIC ACTIVITY/VO LUME] IN SERUM OR PLASMA 17 U/L 5 - 34 02/02 Specimen Type: SERUM No comment entered. Ordering Provider: NIKKI FARIA Report Released Date/Time: Feb 03, 2024 11:33 AM Reporting Lab: [facility] [place] [facility] [address] [facility] [address] Performing Lab: [facility] [place] [facility] [address] [facility] [address] [facility] [place] [facility] LIVER FUNCTION ALANINE AMINOTRANSF ERASE [ENZYMATIC ACTIVITY/VO LUME] IN SERUM OR PLASMA 7 U/L 02/02 Specimen Type: SERUM No comment entered. Ordering Provider: NIKKI FARIA Report Released Date/Time: Feb 03, 2024 11:33 AM Reporting Lab: [facility] [place] [facility] [address] [facility] [address] Performing Lab: [facility] [place] [facility] [address] [facility] [address] [facility] [place] [facility] LIVER FUNCTION BILIRUBIN.T OTAL [MASS/VOLUM E] IN SERUM OR PLASMA 0.9 mg/dL 0.2 - 1.2 02/02 Specimen Type: SERUM No comment entered. Ordering Provider: NIKKI FARIA Report Released Date/Time: Feb 03, 2024 11:33 AM Reporting Lab: [facility] [place] [facility] [address] [facility] [address] Performing Lab: [facility] [place] [facility] [address] [facility] [address] [facility] [place] [facility] HEMOGLOBI N A1C PANEL HEMOGLOBIN A1C/HEMOGLO [...] Feb 03, 2024 11:33 AM Reporting Lab: [facility] [place] [facility] [address] [facility] [address] Performing Lab: [facility] [place] [facility] [address] [facility] [address] [facility] [place] [facility] CALCIUM CALCIUM [MASS/VOLUM E] IN SERUM OR PLASMA 9.2 mg/dL 8.5 - 10.2 02/02 Specimen Type: SERUM No comment entered. Ordering Provider: NIKKI FARIA Report Released Date/Time: Feb 03, 2024 11:33 AM Reporting Lab: [facility] [place] [facility] [address] [facility] [address] Performing Lab: [facility] [place] [facility] [address] [address] [facility] [place] [facility] Vital Signs Combined list of inpatient and outpatient Vital Signs from Department of Defense and Veterans Affairs, ranging from 12 months to all on record, depending upon the facility. Vital Sign Value Date Comments Source SYSTOLIC BLOOD PRESSURE 120 05/25/20 24 13:39:34 [facility] [place] [facility] DIASTOLIC BLOOD PRESSURE 56 024 13:39:34 [facility] [place] [facility] PULSE OXIMETRY 90 05/25/2024 13:39:34 [facility] [place] [facility] WEIGHT 162.8 05/25/2024 13:39:34 [facility] [place] [facility] BMI 22 kg/m2 05/25/2024 13:39:34 [facility] [place] [facility] PAIN 0 05/25/2024 13:39:34 [facility] [facility] [...] 10:36:03 [facility] BMI 21 kg/m2 02/03/2024 10:36:03 [facility] TEMPERATURE 98 02/03/2024 10:36:03 [facility] PULSE 88 02/03/2024 10:36:03 [facility] SYSTOLIC BLOOD PRESSURE 111 11/25/19 24 13:19:22 [facility] DIASTOLIC BLOOD PRESSURE 63 11/24/ 024 13:19:22 [facility] PULSE OXIMETRY 95 11/25/2023 13:19:22 [facility] WEIGHT 159 11/25/2023 13:19:22 [facility] BMI 21 kg/m2 11/25/2023 13:19:22 [facility] TEMPERATURE 96.2 11/25/2023 13:19:22 [facility] PULSE 63 11/25/2023 13:19:22 [facility] RESPIRATION 20 11/25/2023 13:19:22 [facility] Encounters Combined list of: 1) Encounters from Department of Veterans Affairs facilities going backup to the last 18 months, not all VA inpatient encounters are included; 2) Encounters from the Department of [facility] facilities going backup to 280 months. Location Location Details Encounter Type Encounter Number Reason For Visit Attending Provider ADM Date DC Date Status Disposition Source [facility] Outpatient Encounter [id number] 03/20 [facility] Outpatient Encounter [id number] 04/10 [facility] Outpatient Encounter [id number] 04/20 [facility] Outpatient Encounter [id number] 05/04 [facility] [place] [place] [place]/OP EST OCTOBER X REQ PHY/QHP [id number] Diagnos is: ICD-10- CM Z23 Encount er for immuniz ation GIOVANNIL YUE H 05/06 [facility] QNHP OL DIG ASSMT&MGMT 5-10 [id number] Diagnos is: ICD-10- CM Z04.89 Encount er for examina tion and observa tion for oth reasons NATACHARAISSADIMA HAJIGALLITO J 05/11 [facility] [place] [place] [facility] [place] O/P EST MOD 30-39 MIN [id number] Diagnos is: ICD-10- CM Z00.01 Encount er for general adult medical exam w abnorma l finding s BIENVENIDO,A POLINARIO 05/25 [place] [facility] Outpatient Encounter [id number] 05/27 [facility] [place] OFF/OP EST OCTOBER X REQ PHY/QHP [id number] Diagnos is: ICD-10- CM Z23 Encount er for immuniz ation GIOVANNI,L YUE H 06/02 [place] [facility] QNHP OL DIG ASSMT&MGMT 5-10 [id number] Diagnos is: ICD-10- CM Z04.89 Encount er for examina tion and observa tion for oth reasons BOBO VERDUGO 06/11 [facility] Outpatient Encounter [id number] 06/19 [facility] Outpatient Encounter [id number] 07/03 [facility] QNHP OL DIG ASSMT&MGMT 5-10 [id number] Diagnos is: ICD-10- CM Z04.89 Encount er for examina tion and observa tion for oth reasons AYDEN REYNOSO 07/09 [facility] [place] Q[place]P OL DIG ASSMT&MGMT 5-10 [id number] Diagnos is: ICD-10- CM Z04.89 Encount er for examina tion and observa tion for oth reasons KIM CARROLL IE 07/15 [facility] MOD 30 MIN [id number] Diagnos is: ICD-10- CM R63.4 Abnorma l weight loss Lonny FARIA 08/25 [facility] Out[facility] Encounter [id number] 08/26 [facility] Encounter [id number] 09/23 [facility] Encounter [id number] 10/22 [facility] Encounter [id number] 11/02 [facility] Out[facility] Encounter [id number] 11/05 [facility] Encounter [id number] 11/05 [facility] Encounter [id number] 11/10 [facility] Encounter [id number] 11/15 [facility] [place] OFF[place] O/P EST MOD 30 MIN [id number] Diagnos is: ICD-10- CM Z91.89 Oth persona l risk factors , not elsewhe re classif ied BIENVENIDO,A POLINARIO 11/24 [place] Out[place] Encounter [id number] BIENVENIDO,A POLINARIO 11/24 [place] O/P EST MOD 30 MIN [id number] Diagnos is: ICD-10- CM R53.83 Other fatigue BIENVENIDO,A POLINARIO 02/02 [place] [facility] Outpatient Encounter [id number]/[id number] [facility] Outpatient Encounter [id number] Diagnos is: ICD-10- CM R53.83 Other fatigue BIENVENIDO,A POLINARIO 02/04 [place] [facility] Outpatient Encounter [id number] 02/17 [facility] Outpatient Encounter [id number] 1.04/29 [facility] Outpatient Encounter [id number] 1.05/08 [facility] OFF/OP EST MAY X REQ PHY/QHP [id number] Diagnos is: ICD-10- CM Z23 Encount er for immuniz atMaribel Cole [place] [facility] Outpatient Encounter [id number] 05/16 [facility] OFFICE O/P EST MOD 30 MIN [id number] Diagnos is: ICD-10- CM R42 Dizzine ss and giddine ss BIENVENIDO,A POLINARIO 05/25 [place] [facility] SELF CARE MNGMENT TRAINING [id number]. Diagnos is: ICD-10- CM R42 Dizzine ss and giddine ss VIC SANTOS 05/31 [facility] Outpatient Encounter [id number] 06/01 [facility] En[facility] [id number] 06/21 [facility] Encounter [id number] 07/20 [facility] En[facility] [id number] 08/10 [facility] Outpatient Encounter [id number] 08/10 [facility] Social History Combined list of available smoking, tobacco, and other social history from Department of Defense and Veterans Affairs facilities. Social History Type Response Date Comment [facility] e Tobacco smoking status [facility]-TO[facility] FORMER USER 05/16/2024 [place] History of tobacco use [facility]-TOBACCO QUIT 15 YRS OR MORE 05/16/2024 [place] History of tobacco use [facility]-TOBACCO FORMER USER 05/06/2023 [place] History of tobacco use [facility]-TOBACCO QUIT 15 YRS OR MORE 05/28/2022 [place] History of tobacco use [facility]-TOBACCO FORMER USER 07/11/2020 [place] History of tobacco use QUIT TOBACCO USE 1-7 YEARS AGO 03/29/2009 stopped tobacco 5 years ago [place] History of tobacco use QUIT TOBACCO USE 1-7 YEARS AGO 03/09/2008 [place] History of tobacco use QUIT TOBACCO USE 1-7 YEARS AGO 08/19/2007 [place] History of tobacco use QUIT TOBACCO USE 1-7 YEARS AGO 08/13/2006 stopped tobacco 4 years ago [place] History of tobacco use QUIT TOBACCO USE 1-7 YEARS AGO 08/08/2005 [place] History of tobacco use QUIT TOBACCO USE IN PAST YEAR 03/06/2005 Pt quit 2002 [place] History of tobacco use QUIT TOBACCO USE IN PAST YEAR 12/24/2004 [place] History of tobacco use HISTORY OF SMOKING 07/30/2004 Quit 3 years ago [place] Plan of Care List of future care activities from Department of [facility] facilities. Additional future care activities may be listed in the Assessment and Plan section. Date/Time Care Activity Care Activity Detail Facili ty 10/10/2024 AMBULATORY - MEDICINE AM[facility]AT[facility] Advance Directives List of completed, amended, or rescinded Advance Directives on record at Department of [facility] facilities. An actual copy of the Directive is not included. Date Advance Directive Provider Source 03/15/2008 ADVANCE DIRECTIVE GERARDO MARSH [place] [facility]
--- OUTSIDE RECORDS SUMMARY | 2024-08-26 15:10 | XMS_ITS | Clinical Summary ---
Author Organization [facility] Address [address] [place] [address] Care Team Providers Care Director Clinical Research Name Role Phone Gregory Trimble MD Primary Care Provider Social History Tobacco Use Types Packs/Day Years Used Date Smoking Tobacco: Never Assessed Sex and Gender Information Value Date Recorded Sex Assigned at Not on file Legal Sex Male 1:38 AM EST Gender Identity Not on file Sexual Orientation Not on file Plan of Treatment Health Maintenance Due Date Last Done Comments Zoster Vaccines (1 of 2) 1984 RSV Immunization Patients 60 + Years Old (1 - 1-dose 75+ series) 2009 Cholesterol Screening (Lipid Panel) 06/01/2022 Depression Screening 06/01/2022 Falls Risk Assessment 06/01/2022 Social Influencers of Health Screening 06/01/2022 Pneumococcal Vaccine: 50+ Ye ars (2 of 2 - PCV) 07/11/2022 07/11/2021 COVID-19 Vaccine (1 - 2023-2 5 season) 2024 Influenza Vaccine (#1) 2024 DTaP,Tdap,and Td Vaccines (2 - Td or Tdap) 05/26/2032 05/26/2022 HIB Vaccines Aged Out No longer eligi ble based on patient's age to complete this topic HPV Vaccines Aged Out No longer eligi ble based on patient's age to complete this topic Hepatitis A Vaccines Aged Out No long er eligible based on patient's age to complete this topic Hepatitis B Vaccines Aged Out No long er eligible based on patient's age to complete this topic IPV Vaccines Aged Out No longer eligi ble based on patient's age to complete this topic MMR Vaccines Aged Out No longer eligi ble based on patient's age to complete this topic Meningococcal ACWY Vaccine Aged Out N o longer eligible based on patient's age to complete this topic Meningococcal B Vacine Aged Out No lo nger eligible based on patient's age to complete this topic RSV Immunization Patients Un marcello 20 months Aged Out No longer eligible b ased on patient's age to complete this topic Varicella Vaccines Aged Out No longer eligible based on patient's age to complete this topic Care Teams Director Clinical Research Relationship Specialty Start Date End Date Gregory Trimble MD PCP - General Internal Medicine 03/29/19
--- OUTSIDE RECORDS SUMMARY | 2024-08-26 15:10 | XMS_ITS ---
Author Name [facility] [facility] [place] [facility] Address [address] [place] [id number] Care Team Providers Care Assistant Women'S Rowing Coach Name Role Phone JUAN DE SOUZA Primary Care Provider Unavailab le Insurance Providers: All historical and current Section [...] Patient's Relationship to Policy [employer] ([id number]) PRESCRIPT ION [facility] TIES Jan 05, 2009 [id number] NEVERSMICHAELA SEPH PATIENT [facility] Jun 29, 2016 MEDICAR E SUPPLEM E [id number] NEVERSMICHAELA PATIENT MEDICARE (WNR) MEDICARE (M) PART A October 28, 1999 PART A [id number] ADAMS SHEEHAN JR PATIENT MEDICARE (WNR) MEDICARE (M) PART B October 28, 1999 PART B [id number] ADAMS SHEEHAN JR PATIENT UMR MEDIGAP PLAN C [place] [facility] TIES Apr 05, 2007 [id number] MICHAELA SHEEHAN PATIENT Selected Encounter This section includes the information on record at [place] for the Encounter. Date/Time Encounter Type Encounter Description Reason Pro vider Source Aug 10, 2024 04:01 PM Outpatient Encounter ADMIN PAT ACTIVTIES (MASNONCT) IHE Encounter Template Text not used by [place] Plan of Treatment: Future Appointments (+ 6 [...] Appointment Type Appointme nt Facility Name Oct 10, 2024 01:00 PM AMBULATORY - MEDICINE IN [facility] Advance Directives: All historical and current Section Date Range: From patient's date of to the date document was created. This section includes ALL of a patient's completed or amended [place] Advance and Rescinded Directives. The entries below indicate that a directive exists for the patient, but an actual copy is not included with this document. The data comes from all [place] facilities. Date Advance Directives Provider Source Mar 15, 2008 ADVANCE DIRECTIVE GERARDO MARSH IN [facility] Encounter Notes: All associated encounter notes This section contains the clinical notes associated to the Encounter. Date/Time Encounter Note(s) Provider Source Aug 12, 2024 03:35 PM ADDENDUM: LOCAL TITLE: Addendum STANDARD TITLE: ADDENDUM DATE OF NOTE: AUG 12, 2024@15:35:39 ENTRY DATE: AUG 12, 2024@15:35:41 AUTHOR: VAZQUEZ PAGE EXP COSIGNER: URGENCY: STATUS: COMPLETED PATIENT RETURNING CALL TO PACT AMSA. PATIENT PHONE: DEMOGRAPHICS CONFIRMED /josue/ VAZQUEZ PAGE VISN [facility] AMS[facility] Signed: 08/12/2024 15:37 Receipt Acknowledged By: 08/16/2024 09:11 /josue/ ALFREDO ACKERMAN AMSA 08/16/2024 15:59 /es/ RUBY MERCHANT LPN WIRE PREPARATION MACHINE TENDER === --- Original Document --- 08/10/24 CCC: SCHEDULING ADMINISTRATION: Patient called stating, I received a call from Pact Team to schedule an appointment with a new Provider. Patient requested a call back . /es/ PONCHO FOREMAN PROGRAM SUPPORT ASSISTAT Signed: 08/10/2024 16:04 Receipt Acknowledged By: 08/12/2024 09:03 /josue/ ALFREDO CHUN 08/12/2024 ADDENDUM STATUS: COMPLETED Tobacco Drummer LVM for to call back to make appt. /josue/ ALFREDO CHUN Signed: 08/12/2024 09:03 08/16/2024 ADDENDUM STATUS: COMPLETED Tobacco Drummer spoke with to make appointment with covering provider. /josue/ ALFREDO CHUN Signed: 08/16/2024 09:12 [facility] Aug 10, 2024 04:01 PM ADMINISTRATIVE NOT E: LOCAL TITLE: CCC: SCHEDULING ADMINISTRATION STANDARD TITLE: ADMINISTRATIVE NOTE DATE OF NOTE: AUG 10, 2024@16:01 ENTRY DATE: AUG 10, 2024@16:02:04 AUTHOR: PONCHO FOREMAN EXP COSIGNER: URGENCY: STATUS: COMPLETED CCC: SCHEDULING ADMINISTRATION Has ADDENDA Patient called stating, I received a call from Pact Team to schedule an appointment with a new Provider. Patient requested a call back . /es/ PONCHO FOREMAN PROGRAM SUPPORT ASSISTAT Signed: 08/10/2024 16:04 Receipt Acknowledged By: 08/12/2024 09:03 /josue/ ALFREDO CHUN 08/12/2024 ADDENDUM STATUS: COMPLETED Tobacco Drummer LVM for to call back to make appt. /josue/ ALFREDO CHUN Signed: 08/12/2024 09:03 08/12/2024 ADDENDUM STATUS: COMPLETED PATIENT RETURNING CALL TO PACT ADIEL. PATIENT PHONE: DEMOGRAPHICS CONFIRMED /josue/ VAZQUEZ ALCOCER [facility] ADIEL Signed: 08/12/2024 15:37 Receipt Acknowledged By: 08/16/2024 09:11 /josue/ ALFREDO CHUN * AWAITING SIGNATURE * RUBY MERCHANT 08/16/2024 ADDENDUM STATUS: COMPLETED Tobacco Drummer spoke with to make appointment with covering provider. /josue/ ALFREDO CHUN Signed: 08/16/2024 09:12 PONCHO FOREMAN [facility]
--- OUTSIDE RECORDS SUMMARY | 2024-08-26 15:11 | XMS_ITS ---
Author Organization Gregory Trimble MD Address [address] [place] [phone] Care Team Providers Care Labeling Strategist Name Role Phone Gregory Trimble Primary Care Provider Results Component Value Reference Range Notes Blood Urea Nitrogen (Not yet reviewed by provider) Interpretation: Performing Lab:[facility], [address] [place] [phone] Notes/Report: Blood Urea Nitrogen 48 9-16 mg/dL Creatinine (Not yet reviewed by provider) Interpretation: Performing Lab:[facility], [address] [place] [phone] Notes/Report: Creatinine 1.12 0.5-1.4 mg/dL Estimated Glomerular Filt Rate > 60 Chronic Kidney Disease: Estimated GFR < 60 mL/min/1.73m2 Severe Kidney Disease: Estimated GFR < 15 mL/min/1.73m2 REASON FOR VISIT bun creatine Encounters Encounter Location Date Provider Diagnosis Gregory Trimble MD [address] [place] [address] [phone] 08/26/2024 Gregory Trimble Elevated BUN R79.9 and Poor balance R26.89 Assessments Encounter Date Diagnosis (ICD Code) Assessment Notes Treatment Notes Treatment Clinical Notes Section Notes 08/26/2024 Elevated BUN (ICD-10 - R79.9) 08/26/2024 Poor balance (ICD-10 - R26.89) Plan Of Treatment Pending Test Test Name Order Date Blood Urea Nitrogen 08/26/2024 Creatinine 08/26/2024 Next Appt Details Provider Name:Gregory brown, 01/19/2025 07:30:00 AM, [address] [place] [address], [phone], Provider Name:Gregory brown, 01/26/2025 10:15:00 AM, [address] [place] [address], [phone], Provider Name:Gregory brown, 07/21/2025 07:45:00 AM, [address] [place] [address], [phone], Provider Name:Gregory brown, 07/28/2025 11:00:00 AM, [address] [place] [address], [phone], Progress Notes * Duke FELTONDOB:1935 (88 yo M)Acc No.[id number]:08/26/2024 Progress Note Patient:?RAJESHFannie Duke Provider:?Gregory Trimble MD :1935???Age:88 Y???Sex:Male Gabino e:08/26/2024 Address:[address] [place], [place] [phone] Subjective: * Chief Complaints: * ???1. Bun creatine. * Medical History:? Objective: * Vitals:? Assessment: * Assessment: 1.?Elevated BUN - R79.9 (Laura geni)???2.?Poor balance - R26.89??? Plan: * Treatment: * Procedure Codes:?42960 VENIP UNCT, ROUTINE* * * The named appointment provid er may or may not be the originator of this progress note, and it is not deemed complete until electronically signed by the appointment provider. Sign off status: Pending * Provider:?Gregory Trimble MD Date:?0 08/26/2024 Generated for Stef patel/Ariane/Nicolasitting on:?08/26/2024 03:11 PM EST
--- OUTSIDE RECORDS SUMMARY | 2024-08-26 15:11 | XMS_ITS | Clinical Summary ---
Author Organization [facility] Address [address] [place] [address] Care Team Providers Care Stereo Compiler Name Role Phone Gregory Trimble MD Primary Care Provider [phone] Medications Medication Sig Dispensed Refills Start Date End Date Status gentamicin (GARAMYCIN) 0.1 % ointment Apply topically daily. 15 g 0 08/31/2019 Active Social History Tobacco Use Types Packs/Day Years Used Date Smoking Tobacco: Never Assessed Sex and Gender Information Value Date Recorded Sex Assigned at Male 04/25/2019 2:08 PM EDT Gender Identity Not on file Sexual Orientation Not on file Job Start Date Occupation Industry Not on file Not on file Not on file Plan of Treatment Health Maintenance Due Date Last Done Comments COVID-19 Vaccine (#1) [birth year]11/1936 Depression Screening 1946 Preventative Health Evaluation 1952 DTap / Tdap / Td (1 - Tdap) 1953 Shingrix-Zoster Vaccine (1 of 2) 1984 Fall Risk Assessment 11/09/1999 Pneumococcal Vaccine (1 of 1 - PCV) 11/09/1999 RSV Adult > 60+ Yrs or Pregn ant (1 - 1-dose 75+ series) 2009 Influenza Vaccine (#1) 2024 04/30/2017 Hepatitis B Vaccines Aged Out No long er eligible based on patient's age to complete this topic RSV Ped < 20 months Aged Out No longe r eligible based on patient's age to complete this topic Care Teams Stereo Compiler Relationship Specialty Start Date End Date Gregory Trimble MD [address] [place] [address] [address] [place] [phone] PCP - General Internal Medicine 03/29/19
--- OUTSIDE RECORDS SUMMARY | 2024-08-26 15:11 | XMS_ITS ---
Author Organization Gregory Trimble MD Address [address] [place] [phone] Care Team Providers Care Finisher Fine Diamond Dies Name Role Phone Gregory Trimble Primary Care Provider Results Component Value Reference Range Notes Complete Blood Count Auto Di ff Reviewed date:07/19/2024 04:33:21 PM Interpretation: Performing Lab:[facility], [address] [place] [phone] Notes/Report: White Blood Count 4.8 4.8-10.8 X10*3/uL Red Blood Count 3.89 4.60-5.80 X10*6/uL Hemoglobin 12.2 14.0-18.0 g/dl Hematocrit 38.8 42.0-52.0 % Mean Corpuscular Volume 99.7 80.0-98.0 fL Mean Corpuscular Hemoglobin 31.4 27.0-33.0 pg Mean Corpuscular HGB Conc 31.4 31.0-36.0 g/dl Red Cell Distribution Width 14.6 11.0-16.0 % Platelet Count 225 160-400 X10*3/uL Mean Platelet Volume 10.3 9.4-12.4 fL Neutrophils Percent Auto 74.2 45-73 % Imm Gran Pct Auto 0.2 0.0-0.4 % Lymphocytes Percent Auto 12.1 20-40 % Monocytes Percent Auto 10.0 2-11 % Eosinophils Percent Auto 2.9 0-4 % Basophils Percent Auto 0.6 0-2 % NRBC Pct Auto 0.0 0.0-0.2 /100WBC Neutrophils Absolute Auto 3.6 2.0-8.3 x10*3/u L Imm Gran Abs Auto 0.01 0.00-0.03 X10*3/uL Lymphocytes Absolute Auto 0.6 1.2-4.9 X10*3/u L Monocytes Absolute Auto 0.5 0.1-1.2 X10*3/uL Eosinophils Absolute Auto 0.1 0.0-0.4 X10*3/u L Basophils Absolute Auto 0.0 0.0-0.2 X10*3/uL NRBC Abs Auto 0.000 0.0-0.012 X10*3/uL Comprehensive [place]. Panel Fa st Reviewed date:07/19/2024 04:35:22 PM Interpretation: Performing Lab:[facility], [address] [place] [phone] Notes/Report: Sodium 142 135-145 mmol/L Potassium 3.9 3.3-5.1 mmol/L Chloride 109 96-108 mmol/L Carbon Dioxide 24 22-29 mmol/L Anion Gap 13 12-20 Blood Urea Nitrogen 47 9-16 mg/dL Creatinine 1.12 0.5-1.4 mg/dL Estimated Glomerular Filt Rate > 60 Chronic Kidney Disease: Estimated GFR < 60 mL/min/1.73m2 Severe Kidney Disease: Estimated GFR < 15 mL/min/1.73m2 Glucose Fasting 87 60-99 mg/dL Calcium 8.9 8.4-10.2 mg/dL Bilirubin Total 0.9 0.0-1.0 mg/dL Aspartate Amino Transferase 27 5-37 U/L Alanine Aminotransferase 11 0-40 U/L Total Protein 8.3 6.5-8.0 g/dL Albumin Level 4.4 3.5-5.0 g/dL Alkaline Phosphatase 69 39-117 U/L IRON PROFILE Reviewed date:07/19/2024 04:29:40 PM Interpretation: Performing Lab:[address] [phone] Notes/Report: Iron 52 45-160 mcg/dL Total Iron Binding Capacity 305 228-428 mcg/d L Percent Iron Saturation 17 15-50 % Unsaturated Iron Binding 253 Lipid Panel Reviewed date:07/19/2024 04:29:28 PM Interpretation: Performing Lab:[address] [phone] Notes/Report: Triglycerides 51 <150 mg/dL Desirable Triglyceride: less than 150 mg/dL Borderline High Triglyceride 150-199 mg/dL High Triglyceride: 200-499 mg/dL Very High Triglyceride: greater than or equal to 5OO mg/dL Cholesterol 91 <200 mg/dL Desirable Cholesterol: less than 200 mg/dL Borderline High Cholesterol: 200-239 mg/dL High Cholesterol: greater than 239 mg/dL LDL Cholesterol Calculated 35 <100 mg/dL Desirable LDL: less than 100 mg/dL Near Optimal/Above Optimal LDL: 110-129 mg/dL Borderline High LDL: 130-159 mg/dL High LDL: 160-189 mg/dL Very High LDL: greater than or equal to 190 mg/dL HDL Cholesterol 46 >40 mg/dL Desirable HDL: greater than 40 mg/dL Note: This HDL assay may give artificially low results in patients with liver disease. 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 and Iron deficiency anemia due to chronic blood loss D50.0 Assessments Encounter Date Diagnosis (ICD Code) Assessment Notes Treatment Notes Treatment Clinical Notes Section Notes 07/19/2024 Essential (primary) hypertension (ICD-10 - I10) 07/19/2024 Pure hypercholesterolemia (ICD-10 - E78.00) 07/19/2024 Elevated PSA (ICD-10 - R97.20) 07/19/2024 Acute systolic heart failure (ICD-10 - I50.21) 07/19/2024 Vitamin B 12 deficie ncy (ICD-10 - E53.8) 07/19/2024 Iron deficiency 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 (ICD-10 - D50.0) Plan Of Treatment Pending Test Test Name Order Date Vitamin B12 and Folate 07/19/2024 UA ClnCatch+Micro w/rflx Cult 07/19/2024 Next Appt Details Provider Name:Gregory brown, 01/19/2025 07:30:00 AM, [address] [place] [address], [address], [phone], Provider Name:Gregory brown, 01/26/2025 10:15:00 AM, [address] [place] [address], [phone], Provider Name:Gregory brown, 07/21/2025 07:45:00 AM, [address] [place] [address], [phone], Provider Name:Gregory Reedhaider ier, 07/28/2025 11:00:00 AM, [address], [address], [place], [place], [phone], Progress Notes * Duke FELTONDOB:1935 (88 yo M)Acc No.[id number]:07/19/2024 Progress Note Patient:?Duke FELTON Provider:?Gregory Trimble MD :1935???Age:88 Y???Sex:Male Gabino e:07/19/2024 Address:[address] [place], [place] [phone] Subjective: * Chief Complaints: * ???1. FASTING LABS. * Medical History:? Objective: * Vitals:? Assessment: * Assessment: 1.?Essential (primary) hyper tension - I10 (Primary)???2.?Pure hypercholesterolemia - E78.00???3.?Elevated PSA - R97.20???4.?Acute systolic heart failure - I50.21???5.?Vitamin B 12 deficiency - E53.8?? 6.?Iron deficiency anemia due to chronic blood loss - D50.0??? Plan: * Treatment: 2.?Pure hypercholesterolemia ?LAB: Vitamin B12 and Folate ?LAB: UA ClnCatch+Micro w/rflx Cult ?LAB: Complete Blood Count Auto Diff (Collection Date & Time - 07/19/2024 08:00 AM) ?LAB: Comprehensive [place]. Panel Fast (Collection Date & Time - 07/19/2024 08:00 AM) ?LAB: IRON PROFILE (Collection Date & Time - 07/19/2024 08:00 AM) ?LAB: Lipid Panel (Collection Date & Time - 07/19/2024 08:00 AM) ?LAB: PSA,Total (Free>4and<10) (Collection Date & Time - 07/19/2024 08:00 AM) 3.?Elevated PSA?LAB: Vitamin B12 and Folate ?LAB: UA ClnCatch+Micro w/rflx Cult ?LAB: Complete Blood Count Auto Diff (Collection Date & Time - 07/19/2024 08:00 AM) ?LAB: Comprehensive [place]. Panel Fast (Collection Date & Time - 07/19/2024 08:00 AM) ?LAB: IRON PROFILE (Collection Date & Time - 07/19/2024 08:00 AM) ?LAB: Lipid Panel (Collection Date & Time - 07/19/2024 08:00 AM) ?LAB: PSA,Total (Free>4and<10) (Collection Date & Time - 07/19/2024 08:00 AM) 4.?Acute systolic heart fail ure?LAB: Vitamin B12 and Folate ?LAB: UA ClnCatch+Micro w/rflx Cult ?LAB: Complete Blood Count Auto Diff (Collection Date & Time - 07/19/2024 08:00 AM) ?LAB: Comprehensive [place]. Panel Fast (Collection Date & Time - 07/19/2024 08:00 AM) ?LAB: IRON PROFILE (Collection Date & Time - 07/19/2024 08:00 AM) ?LAB: Lipid Panel (Collection Date & Time - 07/19/2024 08:00 AM) ?LAB: PSA,Total (Free>4and<10) (Collection Date & Time - 07/19/2024 08:00 AM) 5.?Vitamin B 12 deficiency?LAB: Vitamin B12 and Folate ?LAB: UA ClnCatch+Micro w/rflx Cult ?LAB: Complete Blood Count Auto Diff (Collection Date & Time - 07/19/2024 08:00 AM) ?LAB: Comprehensive [place]. Panel Fast (Collection Date & Time - 07/19/2024 08:00 AM) ?LAB: IRON PROFILE (Collection Date & Time - 07/19/2024 08:00 AM) ?LAB: Lipid Panel (Collection Date & Time - 07/19/2024 08:00 AM) ?LAB: PSA,Total (Free>4and<10) (Collection Date & Time - 07/19/2024 08:00 AM) 6.?Iron deficiency anemia du e to chronic blood loss?LAB: Vitamin B12 and Folate ?LAB: UA ClnCatch+Micro w/rflx Cult ?LAB: Complete Blood Count Auto Diff (Collection Date & Time - 07/19/2024 08:00 AM) ?LAB: Comprehensive [place]. Panel Fast (Collection Date & Time - 07/19/2024 08:00 AM) ?LAB: IRON PROFILE (Collection Date & Time - 07/19/2024 08:00 AM) ?LAB: Lipid Panel (Collection Date & Time - 07/19/2024 08:00 AM) ?LAB: PSA,Total (Free>4and<10) (Collection Date & Time - 07/19/2024 08:00 AM) * Procedure Codes:?61428 VENIP UNCT, ROUTINE* * * The named appointment provid er may or may not be the originator of this progress note, and it is not deemed complete until electronically signed by the appointment provider. Sign off status: Pending * Provider:?Gregory Trimble MD Date:?0 07/19/2024 Generated for Stef patel/Ariane/Nicolasitting on:?08/26/2024 03:11 PM EST
--- OUTSIDE RECORDS SUMMARY | 2024-08-26 15:11 | XMS_ITS | Encounter Summary ---
Author Name [facility] [place] Organization [facility] [place] Address [address] [place] [id number] Care Team Providers Care Plant Safety Leader Name Role Phone JUAN DE SOUZA Primary [...] Patient's Relationship to Policy [employer] ([id number]) [facility] TIES Jan 05, 2009 [id number] NEVERSMICHAELA SEPH PATIENT [facility] MEDICARE SUPPLEMEN TAL [place] IND Jun 29, 2016 MEDICAR E SUPPLEM E [id number] NEVERSMICHAELA BROCK PATIENT MEDICARE (WN) MEDICARE (M) PART A October 28, 1999 PART A [id number] ADAMS SHEEHAN JR PATIENT MEDICARE (WNR) MEDICARE (M) PART B October 28, 1999 PART B [id number] ADAMS SHEEHAN JR PATIENT [employer] MEDIGAP PLAN C SCOTT RAMESH TIES Apr 05, 2007 [id number] [phone] NEVERS,MICHAELA SEPH PATIENT Selected Encounter This section includes the information on record at [place] for the Encounter. Date/Time Encounter Type Encounter Description Reason Pro vider Source Aug 10, 2024 09:18 AM Outpatient Encounter PRIMARY CARE/MEDICINE IHE Encounter Template Text not used by [place] Plan of Treatment: Future Appointments (+ 6 months) and Future Tests (+/- 45 days) The Plan of Treatment section includes future care activities for the patient from all [place] treatmentfacilities. This section includes future appointments and [...] 10, 2024 01:00 PM AMBULATORY - [place]ICINE [place] C NTRL [facility] Advance Directives: All historical and current [...] Mar 15, 2008 ADVANCE DIRECTIVE GERARDO MARSH [place] CNT RL [facility] Encounter Notes: All associated encounter notes This section contains the clinical notes associated to the Encounter. Date/Time Encounter Note(s) Provider Source Aug 10, 2024 09:18 AM LETTERS: LOCAL TITLE: PATIENT LETTER (T) STANDARD TITLE: LETTERS DATE OF NOTE: AUG 10, 2024@09:18 ENTRY DATE: AUG 10, 2024@09:18:45 AUTHOR: ALFREDO ACKERMAN EXP COSIGNER: URGENCY: STATUS: COMPLETED [facility] Toll Free Number Primary Care Telephone Assistance can be reached at extension [phone] [facility] scheduling can be reached at extension [phone] [facility] scheduling can be reached at ext [phone] [facility] [address] [place], [place] [id number] [phone] * [phone] * ADAMS TOSCANO JR NEVERS [address] [place], [place] [address] Date: AUG 10, 2024 Dear : Our goal at the [facility] is to provide you with quality medical care. We have been trying to reach you unsuccessfully to schedule a PCP appt with you at the [facility], [address] [place] [address] Please call us at Thursday through Thursday, 8am-4pm to schedule this appointment. Sincerely, Office Staff for: Primary Care [facility] [address] [address] T [phone] Sincerely, Your Primary Care Team [facility] [address] [phone] [place] [address] [facility] [address] [place] [address],[address] [place] [address] [place] [address] [phone] [place] [facility] [address] [facility],[address] Floor [address] [place] [phone] [place] [address] ALFREDO ACKERMAN HIALEAH
--- OUTSIDE RECORDS SUMMARY | 2024-08-26 15:11 | XMS_ITS | Data Portability ---
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 [email or web address] Not available 01/08/2024 11:37:42 01/08/2024 01/08/2024 88 [...] and Address Organization Details Recorded Time Dysphonia 45147099 Active 2016 Hoarsenes s; Note: Date Diagnosed : 07/04/2016 3:31 PM (R49.0) Not Available [facility] 4 03:07:02 Posterior rhinorrhe a 62536431 Active 2015 Postnasal drip; Note: Date Diagnosed : 06/05/2016 3:42 PM (R09.82) Not Available [facility] 4 03:07:03 Abnormal auditory perceptio n 65097781 Active 2019 Other abnormal auditory perceptio ns, left ear; Note: Date Diagnosed : 12/21/2019 5:08 PM (H93.292) Not Available [facility] 4 03:07:03 Sensorine ural hearing loss of bilateral ears 043597985 Active 2019 Sensorine ural hearing loss, bilateral ; Note: Date Diagnosed : 12/21/2019 3:28 PM (H90.3) Not Available [facility] 4 03:07:01 Impacted cerumen of bilateral ears 61084539022 81739 Active 2015 Impacted cerumen, bilateral ; Note: Date Diagnosed : 06/05/2016 3:36 PM (H61.23) Not Available [facility] 4 03:07:02 Bilateral tinnitus 89848969392 02 Active 2022 Tinnitus, bilateral ; Note: Date Diagnosed : 05/04/2023 11:35 AM (H93.13) Not Available [facility] 4 03:07:01 Chronic obstructi ve pulmonary disease 60092743 Active 2018 Chronic obstructi ve pulmonary disease, unspecifi ed; Note: Date Diagnosed : 01/12/2019 1:46 PM (J44.9) Not Available [facility] 4 03:07:03 Candidal otitis externa 51188889 Active 2016 Candidal otitis externa; Note: Date Diagnosed : 12/31/2016 1:29 PM (B37.84) Not Available [facility] 4 03:07:01 Mild intermitt ent asthma 761849533 Active 2016 Mild intermitt ent asthma, uncomplic ated; Note: Date Diagnosed : 07/04/2016 3:34 PM (J45.20) Not Available [facility] 4 03:07:02 Pharyngea l dysphagia 59950574567 105 Active 2020 Dysphagia , pharyngea l phase; Note: Date Diagnosed : 01/23/2021 1:01 PM (R13.13) Not Available [facility] 4 03:07:02 Dizziness and giddiness 418395271 Active 2022 Dizziness and giddiness ; Note: Date Diagnosed : 05/04/2023 11:35 AM (R42) Not Available [facility] 4 03:07:02 Problem Notes None recorded. Procedures Surgical History Date Name Laterality Status Provider Name and Address Organization Details Recorded Time Cerumen removal without microscope bilat completed LOREE FIERRO PA-C [address] [facility],[address], [address], [facility] - [facility] 03/08/2024 13:33:34 4 Air & Speech Audio with Tymps ([id number], [id number] & [id number]) completed Lucius ÁLVAREZ [address] [facility],[address], [address], [facility] - [facility] 01/08/2024 11:38:32 4 Cerumen removal without microscope bilat completed CALLUM SIMON PA-C [address] [facility],[address], [address], [facility] 01/08/2024 12:08:35 Imaging Results Imaging Date Name [...] mg tablet 2019 active Medicati on ID: [id number] D uration Value: 90 Brand Name: furosemi [...] mg tablet 2019 active Medicati on ID: [id number] D uration Value: 90 Brand Name: atorvast atin Sen d Method: E-Prescr ibed Sub s Allowed: subs OK Speci al Instruct ion: TK 1 T PO QD Medic ationGen ericName : atorvast atin Not Available Not Available Not Available Lotrisone 1 %-0.05 % topical cream 12/11 completed Medicati on ID: [id number] P rescrimusa d By Name: PAYAM Corrales nd Name: Lotrison e Send Method: E-Prescr ibed Sub s Allowed: subs OK Speci al Instruct ion: apply to external ear tid X 2 weeks Me dication GenericN shanta: Lotrison e Not Available Not Available Not Available clotrimaz ole-betam ethasone 1 %-0.05 % lotion 12/11 completed Medicati on ID: [id number] R lesly: () Brand Name: Lotrison e [...] mg tablet 12/11 completed Medicati on ID: [id number] D uration Value: 30 Reason: () Brand Name: clopidog rel Send Method: E-Prescr ibed Sub s Allowed: subs OK Speci al Instruct ion: TK 1 T PO D Medica tionGene ricName: clopidog rel Not Available Not Available Not Available amlodipin e 5 mg tablet 01/07 completed Medicati on ID: [id number] D uration Value: 90 Brand Name: amlodipi ne Send Method: E-Prescr ibed Sub s Allowed: subs OK Speci al Instruct ion: TK 1 TS PO ONCE DAILY FOR 90 DAYS Med icationG enericNa me: amlodipi ne Medic ation ID: [id number] D uration Value: 90 Brand Name: amlodipi ne Send Method: E-Prescr ibed Sub s Allowed: subs OK Speci al Instruct ion: TK 1 TS PO ONCE DAILY FOR 90 DAYS Med icationG enericNa me: amlodipi ne Not Available Not Available Not Available tamsulosi n 0.4 mg capsule 2019 active Medicati on ID: [id number] D uration Value: 30 Brand Name: tamsulos in Send Method: E-Prescr ibed Sub s Allowed: subs OK Speci al Instruct ion: TK 1 C PO QD Medic ationGen ericName : tamsulos in Not Available Not Available Not Available amlodipin e 10 mg tablet 01/07 completed Medicati on ID: [id number] B rand Name: amlodipi ne Send Method: E-Prescr ibed Sub s Allowed: subs OK Medic ationGen ericName : amlodipi ne Medic ation ID: [id number] B rand Name: amlodipi ne Send Method: E-Prescr ibed Sub s Allowed: subs OK Medic ationGen ericName : amlodipi ne Not Available Not Available Not Available metronida zole 0.75 % topical cream APPLY TOPICALL Y TO FACE TWICE DAILY FOR ROSACEA active Not Available Not Available No t Available furosemid e 20 mg tablet 12/11 completed Medicati on ID: [id number] D uration Value: 30 Reason: () Brand Name: furosemi de Send Method: E-Prescr ibed Sub s Allowed: subs OK Medic ationGen ericName : furosemi de Not Available Not Available Not Available metoprolo l succinate ER 25 mg tablet,ex tended release 24 hr 12/11 completed Medicati on ID: [id number] D uration Value: 30 Reason: () Brand [...] nasal spray 2022 active Medicati on ID: [id number] D uration Value: 30 Brand Name: ipratrop ium bromide Send Method: E-Prescr ibed Sub s Allowed: subs OK Speci al Instruct ion: 2 sprays in each nostril 1-3 times a day Medi cationGe nericNam e: ipratrop ium bromide Not Available Not Available Not Available finasteri de 5 mg tablet 2019 active Medicati on ID: [id number] D uration Value: 90 Brand Name: finaster velia Send Method: E-Prescr ibed Sub s Allowed: subs OK Speci al Instruct ion: TK 1 T PO QD Medic ationGen ericName : finaster velia Not Available Not Available Not Available gentamici n 0.1 % topical ointment 01/07 completed Medicati on ID: [id number] D uration Value: 7 Brand Name: gentamic in Send Method: E-Prescr ibed Sub s Allowed: subs OK Speci al Instruct ion: APPLY TOPICALL Y AA ONCE DAILY Me dication GenericN shanta: gentamic in Medic ation ID: [id number] D uration Value: 7 Brand Name: gentamic in Send Method: E-Prescr ibed Sub s Allowed: subs OK Speci al Instruct ion: APPLY TOPICALL Y AA ONCE DAILY Me dication GenericN shanta: gentamic in Not Available Not Available Not Available Ventolin HFA 90 mcg/actua tion aerosol inhaler 2019 active Medicati on ID: [id number] D uration Value: 16 Brand Name: Ventolin [...] mg tablet 12/11 completed Medicati on ID: [id number] D uration Value: 90 Reason: () Brand Name: valsarta n-hydroc hlorothi azide Se nd Method: E-Prescr ibed Sub s Allowed: subs OK Medic ationGen ericName : valsarta n-hydroc hlorothi azide Not Available Not Available Not Available Xarelto 20 mg tablet 2019 active Medicati on ID: [id number] D uration Value: 30 Brand Name: Xarelto Send Method: E-Prescr ibed Sub s Allowed: subs OK Speci al Instruct ion: TK 1 T PO D WF Medic ationGen ericName : Xarelto Not Available Not Available Not Available Myrbetriq 50 mg tablet,ex tended release 01/07 completed Medicati on ID: [id number] D uration Value: 30 Brand Name: Myrbetri q Send Method: E-Prescr ibed Sub s Allowed: subs OK Medic ationGen ericName : Myrbetri q Medica tion ID: [id number] D uration Value: 30 Brand Name: Myrbetri q Send Method: E-Prescr ibed Sub s Allowed: subs OK Medic ationGen ericName : Myrbetri q Not Available Not Available Not Available Eliquis 5 mg tablet 12/11 completed Medicati on ID: [id number] D uration Value: 90 Reason: () Brand Name: Eliquis Send Method: E-Prescr ibed Sub s Allowed: subs OK Medic ationGen ericName : Eliquis Not Available Not Available Not Available Anoro Ellipta 62.5 mcg-25 mcg/actua tion powder for inhalatio n 01/07 completed Medicati on ID: [id number] D uration Value: 30 Brand Name: Anoro Ellipta Send Method: E-Prescr ibed Sub s Allowed: subs OK Speci al Instruct ion: INHALE 1 PUFF PO ONCE DAILY FOR 30 DAYS Med icationG enericNa me: Anoro Ellipta Medicati on ID: [id number] D uration Value: 30 Brand Name: Anoro Ellipta Send Method: E-Prescr ibed Sub s Allowed: subs OK Speci al Instruct ion: INHALE 1 PUFF PO ONCE DAILY FOR 30 DAYS Med icationG enericNa me: Anoro Ellipta Not Available Not Available Not Available Stiolto Respimat 2.5 mcg-2.5 mcg/actua tion solution for inhalatio n 2015 active Medicati on ID: [id number] B rand Name: Stiolto Respimat Send Method: E-Prescr ibed Sub s Allowed: subs OK Medic ationGen ericName : Stiolto Respimat Not Available Not Available Not Available Breo Ellipta 200 mcg-25 mcg/dose powder for inhalatio n 12/11 completed Medicati on ID: [id number] D uration Value: 30 Reason: () Brand [...] Updated DateTime 01/08/2024 185.42 cm 19.8 kg/m2 99024.86 g Junie Chavez [place] - [facility] 01/08/2024 11:12:39 Social History None recorded. Functional Status None recorded. Mental Status None recorded. Family History Nothing Reported. Medical History No medical history recorded. Past Encounters Encounter ID Performer Location Encounter Start Date Encounter Closed Date Diagnosis/Indication Diagnosis SNOMED-CT Code Diagnosis ICD10 Code Diagnosis Note [id number] BONNIE MACHADO MD [facility] on [address] [place] [address] 01/08/2024 11:03:34 01/08/2024 13:06:31 Bilateral tinnitus 7174574710 102 H93.13 Impacted c erumen of bilateral ears 1753349507 789802 H61.23 Sensorineu ral hearing loss of bilateral ears 964421342 H90.3 [id number] Lucius ÁLVAREZ [facility] on [address] [place] [phone] 01/08/2024 11:37:24 01/08/2024 13:05:33 Sensorineural hearing loss of bilateral ears 252126390 H90.3 Audiologic al evaluation results:Ri ght ear:{{Norm [...] Cou ld not maintain a hermetic seal}} [id number] BONNIE MACHADO MD [facility] [address] [address] 03/08/2024 13:08:02 03/08/2024 13:34:46 Impacted cerumen of bilateral ears 6190549486 768330 H61.23 Sensorineu ral hearing loss of bilateral ears 234871694 H90.3 Health Concerns Section Related Observation LastModified by Organization Detai ls LastModified Time None Recorded Concern Status LastModified by Organization Details LastModified Time None Recorded Advance Directives Directive None Recorded Payers Encounter Date Sequence Insurance Name Policy Number Policy Starks Covered Member ID Starks Member ID Guarantor Name 01/08/2024 2 [facility] (MEDICARE SUPPLEMENT) Duke Felton [id number] Duke Felton Jr 01/08/2024 1 MEDICARE B-[place]: [facility] Duke Felton Jr [id number] Duke Felton Jr 01/08/2024 2 [facility] (MEDICARE SUPPLEMENT) Duke Felton [id number] Duke Felton Jr 01/08/2024 1 MEDICARE B-[place]: [facility] Duke Felton Jr [id number] Duke Felton Jr 03/08/2024 2 [facility] (MEDICARE SUPPLEMENT) Duke Felton [id number] Duke Felton Jr 03/08/2024 1 MEDICARE B-[place]: [facility] Duke Felton Jr [id number] Duke Felton Jr Notes Date Note [...] some pollen allergy. BONNIE MACHADO MD [address], [address], [facility] - [facility] 01/08/2024 12:42:47 01/08/2024 text/html Audiological Evaluation HPIReported bypatient.Hearing loss perceived:both ears: no differences noted between ears Lucius ÁLVAREZ [address] [facility],[place] [address], [place], [address], [facility] 01/08/2024 11:47:53 03/08/2024 text/html 88-year-old male with sensorineural hearing loss presents for cerumen removal. He is a candidate for hearing aids but has not been interested in obtaining them yet. Continues to do fairly well without them. BONNIE MACHADO MD [address] [place] [address], [place], [phone], [place] - [facility] 03/09/2024 08:43:49
--- OUTSIDE RECORDS SUMMARY | 2024-08-26 15:11 | XMS_ITS ---
Author Organization Gregory Trimble MD Address [address] [place] [id number] Care Team Providers Care Sleep Technician Name Role Phone Gregory Trimble Primary Care Provider Allergies Allergen (clinical drug ingredient) Drug/Non Drug Allergy documented on EMR Reaction Allergy Type Onset Date Status Metoprolol Succinate severe rohit Drug Allergy Active REASON FOR VISIT COMP EXAM Medications Medication SIG (Take, Route, Frequency, Duration) Notes Start Date End Date Status Bactroban Active Fe Tabs 325 (65 Fe) MG 0.5 tab Orally On ce a day 06/17/2019 Active MiraLax 17 GM 1 packet mixed with 8 ounces of fluid Orally Once a day for 30 day(s) Active Vitamin C 250 MG 1 tablet Orally Once a day for 30 day(s) Active Tylenol 8 Hour 650 MG 2 tablets as neede d Orally every 8 hrs Active Tadalafil 5 MG 1 tablet as needed Orally Once a day for 30 day(s) Active Entresto 24-26 MG 1 tablet Orally once a day Active Atorvastatin Calcium 20 MG TAKE 1 TABLET BY MOUTH EVERY DAY Orally Once a day Active Xarelto 20 MG 1 tablet with food Orally Once a day Active Ventolin HFA 108 (90 Base) MCG/ACT 2 puffs as needed Inhalation every 4 hrs Active Ipratropium-Albuterol 0.5-2.5 (3) MG/3ML 3 ml Inhalation every 6 hrs 03/18/2018 Active Flonase 50 MCG/ACT 1 spray in each nost ril Nasally Once a day Active Fluticasone Propionate 50 MCG/ACT USE 1 SPRAY IN EACH NOSTRIL EVERY DAY Nasally Once a day Active Tamsulosin HCl 0.4 MG 1 capsule Orally O nce a day Active Torsemide 20 MG 3 tablet Orally Once a day in morning 01/16/2022 Active Stiolto Respimat 2.5-2.5 MCG/ACT 2 puffs Inhalation Once a day Not-Taking Bethanechol Chloride 50 MG 1 tablet 1 hour before or 2 hours after meals Orally twice a day Active Finasteride 5 MG TAKE 1 TABLET BY CLINT TH EVERY DAY Orally Once a day Active Potassium Chloride ER 10 MEQ TAKE 1 CAPSULE BY MOUTH EVERY DAY WITH FOOD for 90 Active traMADol HCl 50 MG 1 tablet as needed Orally Once a day Not-Taking Social History Tobacco Use: Social History Observation Description Date Details (start date - stop date) Former Smoker NA - NA Tobacco Use/Smoking Question Answer Notes Patient is a former smoker How long has it been since y ou last smoked? > 10 years Additional Findings: Tobacco Non-User Fo rmer smoker, currently using no form of tobacco Alcohol Screen Question Answer Notes Did you have a drink containing alcohol in the p ast year? No Points 0 Interpretation Negative Vital Signs Blood pressure systolic 122 mm Hg 07/26/19 25 Blood pressure diastolic 54 mm Hg 025 Height 71.50 in 07/26/2024 Weight 155 lbs 07/26/2024 BMI 21.31 kg/m2 07/26/2024 weight is down 7 pounds [facility] 11-1-24 Encounters Encounter Location Date Provider Diagnosis Gregory Trimble MD [address] [place] [address] Drive [address] [place], [place] [id number] 07/26/2024 Gregory Trimble Poor balance R26.89 ; Atrial fibrillation with slow ventricular response I48.91 ; Lung nodule R91.1 ; Bilateral carotid artery disease I77.9 ; Elevated BUN R79.9 ; Essential (primary) hypertension I10 ; Elevated PSA R97.20 ; Acute systolic heart failure I50.21 ; COPD (chronic obstructive pulmonary disease) J44.9 ; Pure hypercholesterolemia E78.00 and Persistent atrial fibrillation I48.19 Assessments Encounter Date Diagnosis (ICD Code) Assessment Notes Treatment Notes Treatment Clinical Notes Section Notes 07/26/2024 Poor balance (ICD-10 - R26.89) [facility] Atrial fibrillation with slow ventricular response (ICD-10 - I48.91) 07/26/2024 Lung nodule (ICD-10 - R91.1) had repeat ct in sept and small new nodule 07/26/2024 Bilateral carotid ar nilsa disease (ICD-10 - I77.9) followed by dr goode not bad enough for surgery 07/26/2024 Elevated BUN (ICD-10 - R79.9) 07/26/2024 Essential (primary) hypertension (ICD-10 - I10) 07/26/2024 Elevated PSA (ICD-10 - R97.20) 07/26/2024 Acute systolic heart failure (ICD-10 - I50.21) 07/26/2024 COPD (chronic obstructive pulmonary disease) (ICD-10 - J44.9) 07/26/2024 Pure hypercholesterolemia (ICD-10 - E78.00) stable, will continue current regiment 07/26/2024 Persistent atrial fibrillation (ICD-10 - I48.19) stable, will continue current regiment Plan Of Treatment Medication Medication Name Sig Start Date Stop Date Notes Entresto 24-26 MG 1 tablet Orally once a day Atorvastatin Calcium 20 MG TAKE 1 TABLET BY MOUTH EVERY DAY Orally Once a day Xarelto 20 MG 1 tablet with food O rally Once a day Ventolin HFA 108 (90 Base) MCG/ACT 2 puffs as needed Inhalation every 4 hrs Ipratropium-Albuterol 0.5-2. 5 (3) MG/3ML 3 ml Inhalation every 6 hrs 03/18/2018 Flonase 50 MCG/ACT 1 spray in each nost ril Nasally Once a day Fluticasone Propionate 50 MCG/ACT USE 1 SPRAY IN EACH NOSTRIL EVERY DAY Nasally Once a day Tamsulosin HCl 0.4 MG 1 capsule Orally Once a day Torsemide 20 MG 3 tablet Orally Once a day in morning 01/16/2022 Finasteride 5 MG TAKE 1 TABLET BY CLINT TH EVERY DAY Orally Once a day Treatment Notes Assessment Notes Poor balance going to [facility] Lung nodule had repeat ct in sep t and small new nodule Bilateral carotid artery disease followe d by dr goode not bad enough for surgery Pure hypercholesterolemia stable, will c ontinue current regiment Persistent atrial fibrillation stable, w ill continue current regiment Pending Test Test Name Order Date Blood Urea Nitrogen 07/26/2024 Creatinine 07/26/2024 Next Appt Details Follow Up: 6 Months, Reason: Provider Name:Gregory brown, 01/19/2025 07:30:00 AM, [address] [place] [address], [address], [phone], Provider Name:Gregory brown, 01/26/2025 10:15:00 AM, [address] [place] [address], [address] [place] [address], [phone], Provider Name:Gregory brown, 07/21/2025 07:45:00 AM, [address] [place] [address], [address], [phone], Provider Name:Gregory brown, 07/28/2025 11:00:00 AM, [address] [place] [address], [address], [phone], Progress Notes * Duke FELTONDOB:1935 (88 yo M)Acc No.[id number]:07/26/2024 Patient:?Duke FELTON Provider:?Gregory Trimble MD :1935???Age:88 Y???Sex:Male Gabino e:07/26/2024 Address:[address] [place], [place] [id number] Subjective: * Chief Complaints: * ???COMP EXAM * HPI: ???Depression Screening:?PHQ-9?Little interest or pleasure in doing things?Not at all,?Feeling down, depressed, or hopeless?Not at all,?Trouble falling or staying asleep, or sleeping too much?Not at all,?Feeling tired or having little energy?Not at all,?Poor appetite or overeating?Not at all,?Feeling bad about yourself or that you are a failure, or have let yourself or your family down?Not at all,?Trouble concentrating on things, such as reading the newspaper or watching television?Not at all,?Moving or speaking so slowly that other people could have noticed; or the opposite, being so fidgety or restless that you have been moving around a lot more than usual?Not at all,?Thoughts that you would be better off or of hurting yourself in some way?Not at all,?Total Score?0.?Interpretation and Intervention?Depression Screening Findings?Negative,?Follow-Up for Depression?: review of PHQ-9 found negative result, no follow-up needed.? still feel lousy. light headed and balance off. [facility] is also doing spine and sport. ???Communication Needs:?Communication Needs?Does the patient have a hearing impairment?No,?Does the patient have a vision impairment??Yes,?If yes, what is the vision impairment??Glasses,?Does the patient have a cognition impairment??No.?Fall Risk:?History?Have you had any falls with injury in the past year??No,?Have you had two or more falls in the past year??No.?SDOH Questions:?SDOH Questions?In the past year have you been worried about losing housing??No,?In the past year have you or any family members you live with been unable to get any of the following when it was really needed? Check all that apply:?None.? * ROS:?General/Constitutional:?Change in appetite?denies.?Chills?denies.?Fever?denies.?Ophthalmologic:?Blurred vision?denies.?Discharge?denies.?Pain?denies.?ENT:?Decreased hearing?denies.?Sore throat?denies.?Swollen glands?denies.?Endocrine:?Cold intolerance?denies.?Excessive thirst?denies.?Heat intolerance?denies.?Weight loss?denies.?Respiratory:?Cough?denies.?Shortness of breath at rest?denies.?Shortness of breath with exertion?denies.?Wheezing?denies.?Cardiovascular:?Chest pain at rest?denies.?Chest pain with exertion?denies.?Irregular heartbeat?denies.?Shortness of breath?denies.?Gastrointestinal:?Abdominal pain?denies.?Change in bowel habits?denies.?Diarrhea?denies.?Nausea?denies.?Rectal bleeding?denies.?Vomiting?denies .?Genitourinary:?Blood in urine?denies.?Difficulty urinating?denies.?Frequent urination?denies.?Musculoskeletal:?Painful joints?denies.?Weakness?denies.?Skin:?Dry skin?denies.?Itching?denies.?Denies?Mole(s),? changes in moles, new moles or any lesions of concern.?Denies?Photosensitivity.?Rash?denies.?Neurologic:?Dizziness?denies.?Fainting?denies.?Headache?denies.? * Medical History:? * Surgical History:? * Hospitalization/Major Diagno stic Procedure:? * Family History:?Father: dece ased 87 yrs, diagnosed with Cancer.?Mother: 94 yrs.?1 son(s) , 1 daughter(s) . .? Father- Brain Cancer Mother-CVA, Denies mental health/substance abuse family history, Denies mental health/substance abuse family history, Denies mental health/substance abuse family history. * Social History:?Tobacco Use:?Tobacco Use/Smoking?Patient is a?former smoker,?How long has it been since you last smoked??> 10 years,?Additional Findings: Tobacco Non-User?Former smoker, currently using no form of tobacco.?Drugs/Alcohol:?Alcohol Screen?Did you have a drink containing alcohol in the past year??No,?Points?0,?Interpretation?Negative.?Miscellaneous:?Caffeine: yes, frequency:, 1-2 cups per day. Children: yes. Community involvements: no. Exercise: yes, leg lifts squats at home. Living with: spouse. Marital status: . Occupation: retired. Pets: dog. Travel outside of the [place]: no. * Medications:?TakingTadalafil 5 MG Tablet 1 tablet as needed Orally Once a day Tylenol 8 Hour 650 MG Tablet Extended Release 2 tablets as needed Orally every 8 hrs MiraLax 17 GM Packet 1 packet mixed with 8 ounces of fluid Orally Once a day Vitamin C 250 MG Tablet Chewable 1 tablet Orally Once a day Bactroban Fe Tabs 325 (65 Fe) MG Tablet Delayed Release 0.5 tab Orally Once a day Finasteride 5 MG Tablet TAKE 1 TABLET BY MOUTH EVERY DAY Orally Once a day Tamsulosin HCl 0.4 MG Capsule 1 capsule Orally Once a day Atorvastatin Calcium 20 MG Tablet TAKE 1 TABLET BY MOUTH EVERY DAY Orally Once a day Xarelto 20 MG Tablet 1 tablet with food Orally Once a day Entresto 24-26 MG Tablet 1 tablet Orally once a day Torsemide 20 MG Tablet 3 tablet Orally Once a day in morning Flonase 50 MCG/ACT Suspension 1 spray in each nostril Nasally Once a day Potassium Chloride ER 10 MEQ Capsule Extended Release TAKE 1 CAPSULE BY MOUTH EVERY DAY WITH FOOD Bethanechol Chloride 50 MG Tablet 1 tablet 1 hour before or 2 hours after meals Orally twice a day Fluticasone Propionate 50 MCG/ACT Suspension USE 1 SPRAY IN EACH NOSTRIL EVERY DAY Nasally Once a day Ipratropium-Albuterol 0.5-2.5 (3) MG/3ML Solution 3 ml Inhalation every 6 hrs Ventolin HFA 108 (90 Base) MCG/ACT Aerosol Solution 2 puffs as needed Inhalation every 4 hrs Taking Tadalafil 5 MG Tablet 1 tablet as needed Orally Once a day Taking Tylenol 8 Hour 650 MG Tablet Extended Release 2 tablets as needed Orally every 8 hrs Taking MiraLax 17 GM Packet 1 packet mixed with 8 ounces of fluid Orally Once a day Taking Vitamin C 250 MG Tablet Chewable 1 tablet Orally Once a day Taking Bactroban Taking Fe Tabs 325 (65 Fe) MG Tablet Delayed Release 0.5 tab Orally Once a day Taking Finasteride 5 MG Tablet TAKE 1 TABLET BY MOUTH EVERY DAY Orally Once a day Taking Tamsulosin HCl 0.4 MG Capsule 1 capsule Orally Once a day Taking Atorvastatin Calcium 20 MG Tablet TAKE 1 TABLET BY MOUTH EVERY DAY Orally Once a day Taking Xarelto 20 MG Tablet 1 tablet with food Orally Once a day Taking Entresto 24-26 MG Tablet 1 tablet Orally once a day Taking Torsemide 20 MG Tablet 3 tablet Orally Once a day in morning Taking Flonase 50 MCG/ACT Suspension 1 spray in each nostril Nasally Once a day Taking Potassium Chloride ER 10 MEQ Capsule Extended Release TAKE 1 CAPSULE BY MOUTH EVERY DAY WITH FOOD Taking Bethanechol Chloride 50 MG Tablet 1 tablet 1 hour before or 2 hours after meals Orally twice a day Taking Fluticasone Propionate 50 MCG/ACT Suspension USE 1 SPRAY IN EACH NOSTRIL EVERY DAY Nasally Once a day Taking Ipratropium-Albuterol 0.5-2.5 (3) MG/3ML Solution 3 ml Inhalation every 6 hrs Taking Ventolin HFA 108 (90 Base) MCG/ACT Aerosol Solution 2 puffs as needed Inhalation every 4 hrs Not-Taking/PRNStiolto Respimat 2.5-2.5 MCG/ACT Aerosol Solution 2 puffs Inhalation Once a day traMADol HCl 50 MG Tablet 1 tablet as needed Orally Once a day Medication List reviewed and reconciled with the patientNot-Taking/PRN Stiolto Respimat 2.5-2.5 MCG/ACT Aerosol Solution 2 puffs Inhalation Once a day Not-Taking/PRN traMADol HCl 50 MG Tablet 1 tablet as needed Orally Once a day Medication List reviewed and reconciled with the patient * Allergies:?Metoprolol Succin ate: severe bradyyes[Allergies Verified] Objective: * Vitals:?Ht: 71.50, Wt: 155, BMI:21.31, BP:122/54, Wt-k.31. weight is down 7 pounds since 04-29-24. * ???Past Orders: ???Lab:IRON PROFILE (Order D ate 07/19/2024) (Collection Date & Time - 07/19/2024 08:00 AM) ? Value Reference Range ?Iron 52 45-160 - mcg/dL ?Total Iron Binding Capacity 305 228-428 - mcg/dL ?Percent Iron Saturation 17 15-50 - % ?Unsaturated Iron Binding 253 - ug/dL ???Lab:Lipid Panel (Order Da 07/19/2024) (Collection Date & Time - 07/19/2024 08:00 AM) ? Value Reference Range ?Triglycerides 51 <150 - mg/dL ?Cholesterol 91 <200 - m g/dL ?LDL Cholesterol Calculated 35 <100 - mg/dL ?HDL Cholesterol 46 >40 - mg/dL ???Lab:PSA,Total (Free>4and< 10) (Order Date - 07/19/2024) (Collection Date & Time - 07/19/2024 08:00 AM) ? Value Reference Range ?PSA,Total (Free>4and<10) 0.50 0.00-4.00 - ng/mL ???Lab:Vitamin B12 (Order Da te 07/19/2024) (Collection Date & Time - 07/19/2024 08:00 AM) ? Value Reference Range ?Vitamin B12 563 200-900 - pg/mL ???Lab:Complete Blood Count Auto Diff (Order Date - 07/19/2024) (Collection Date & Time - 07/19/2024 08:00 AM) ? Value Reference Range ?White Blood Count 4.8 4. 8-10.8 - X10*3/uL ?Red Blood Count 3.89 L 4.60 -5.80 - X10*6/uL ?Hemoglobin 12.2 L 14.0-18.0 - g/dl ?Hematocrit 38.8 L 42.0-52.0 - % ?Mean Corpuscular Volume 99.7 H 80.0-98.0 - fL ?Mean Corpuscular Hemoglobin 31.4 27.0-33.0 - pg ?Mean Corpuscular HGB Conc 31.4 31.0-36.0 - g/dl ?Red Cell Distribution Width 14.6 11.0-16.0 - % ?Platelet Count 225 160-4 00 - X10*3/uL ?Mean Platelet Volume 10.3 9.4-12.4 - fL ?Neutrophils Percent Auto 74.2 H 45-73 - % ?Imm Gran Pct Auto 0.2 0. 0-0.4 - % ?Lymphocytes Percent Auto 12.1 L 20-40 - % ?Monocytes Percent Auto 10.0 2-11 - % ?Eosinophils Percent Auto 2.9 0-4 - % ?Basophils Percent Auto 0.6 0-2 - % ?NRBC Pct Auto 0.0 0.0-0. 2 - /100WBC ?Neutrophils Absolute Auto 3.6 2.0-8.3 - x10*3/uL ?Imm Gran Abs Auto 0.01 0. 00-0.03 - X10*3/uL ?Lymphocytes Absolute Auto 0.6 L 1.2-4.9 - X10*3/uL ?Monocytes Absolute Auto 0.5 0.1-1.2 - X10*3/uL ?Eosinophils Absolute Auto 0.1 0.0-0.4 - X10*3/uL ?Basophils Absolute Auto 0.0 0.0-0.2 - X10*3/uL ?NRBC Abs Auto 0.000 0.0-0. 012 - X10*3/uL ???Lab:Folate (Order Date - 07/19/2024) (Collection Date & Time - 07/19/2024 08:00 AM) ? Value Reference Range ?Folate 14.0 > or = 4.0 - ng/mL ???Lab:Comprehensive [place]. P sharan Fast (Order Date - 07/19/2024) (Collection Date & Time - 07/19/2024 08:00 AM) ? Value Reference Range ?Sodium 142 135-145 - mmo l/L ?Bilirubin Total 0.9 0.0- 1.0 - mg/dL ?Aspartate Amino Transferase 27 5-37 - U/L ?Alanine Aminotransferase 11 0-40 - U/L ?Total Protein 8.3 H 6.5-8. 0 - g/dL ?Albumin Level 4.4 3.5-5. 0 - g/dL ?Alkaline Phosphatase 69 39-117 - U/L ?Potassium 3.9 3.3-5.1 - mmol/L ?Chloride 109 H 96-108 - mm ol/L ?Carbon Dioxide 24 22-29 - mmol/L ?Anion Gap 13 12-20 - ?Blood Urea Nitrogen 47 H 9-16 - mg/dL ?Creatinine 1.12 0.5-1.4 - mg/dL ?Estimated Glomerular Filt Rate > 60 - ?Glucose Fasting 87 60-9 9 - mg/dL ?Calcium 8.9 8.4-10.2 - m g/dL ???Lab:UA CC w/rflx Micro + Cult (Order Date - 07/19/2024) (Collection Date & Time - 07/19/2024 08:00 AM) ? Value Reference Range ?Color Urine Yellow - ?Appearance Urine Clear - ?PH 5.5 5.0-9.0 - ?Glucose Urine UA Negative Neg ative - mg/dL ?Urine Blood Negative Negative - ?Specific [place] - Urine 1.015 1.005-1.025 - ?Urine Protein Negative Neg-Tr leida - mg/dL ?Urine Ketones Negative Negati ve - mg/dL ?Nitrite Urine Negative Negati ve - ?Leukocyte Esterase Urine Negative Negative - * Examination: ???General Examination: ?GENERAL APPEARANCE:?well developed, well nourished, in no acute distress.?HEAD:?normocephalic, atraumatic.?EYES:?pupils equal, round, reactive to light and accommodation, sclera non-icteric.?EARS:?normal.?ORAL CAVITY:?mucosa moist.?THROAT:?clear.?NECK/THYROID:?neck supple, full range of motion, no cervical lymphadenopathy, no bruits.?SKIN:?warm and dry, no suspicious lesions.?HEART:?regular rate and rhythm, S1, S2 normal, no murmurs.?LUNGS:?clear to auscultation bilaterally.?ABDOMEN:?soft, nontender, nondistended, bowel sounds present, normal, no organomegaly , no masses palpable.?RECTAL EXAM:?declined.?MALE GENITOURINARY:?declined.?EXTREMITIES:?no clubbing, cyanosis, or edema.?NEUROLOGIC:?nonfocal, motor strength normal upper and lower extremities, sensory exam intact.? Assessment: * Assessment: 1.?Poor balance - R26.89 (Pr imary)???2.?Atrial fibrillation with slow ventricular response - I48.91???3.?Lung nodule - R91.1???4.?Bilateral carotid artery disease - I77.9???5.?Elevated BUN - R79.9???6.?Essential (primary) hypertension - I10???7.?Elevated PSA - R97.20???8.?Acute systolic heart failure - I50.21???9.?COPD (chronic obstructive pulmonary disease) - J44.9???10.?Pure hypercholesterolemia - E78.00???11.?Persistent atrial fibrillation - I48.19??? Plan: * Treatment: 2.?Lung nodule? Notes: had repeat ct in sept and small new nodule?? 3.?Bilateral carotid artery disease? Notes: followed by dr goode not bad enough for surgery?? 4.?Elevated PSA? Continue Finasteride Tablet, 5 MG, TAKE 1 TABLET BY MOUTH EVERY DAY, Orally, Once a day;?Continue Tamsulosin HCl Capsule, 0.4 MG, 1 capsule, Orally, Once a day.?? 5.?Acute systolic heart fail ure? Continue Torsemide Tablet, 20 MG, 3 tablet, Orally, Once a day in morning;?Continue Entresto Tablet, 24-26 MG, 1 tablet, Orally, once a day.?? 6.?COPD (chronic obstructive pulmonary disease)? Continue Flonase Suspension, 50 MCG/ACT, 1 spray in each nostril, Nasally, Once a day;?Continue Fluticasone Propionate Suspension, 50 MCG/ACT, USE 1 SPRAY IN EACH NOSTRIL EVERY DAY, Nasally, Once a day;?Continue Ipratropium-Albuterol Solution, 0.5-2.5 (3) MG/3ML, 3 ml, Inhalation, every 6 hrs;?Continue Ventolin HFA Aerosol Solution, 108 (90 Base) MCG/ACT, 2 puffs as needed, Inhalation, every 4 hrs.?? 7.?Pure hypercholesterolemia ? Continue Atorvastatin Calcium Tablet, 20 MG, TAKE 1 TABLET BY MOUTH EVERY DAY, Orally, Once a day.?? Notes: stable, will continue current regiment?? 8.?Persistent atrial fibrill ation? Continue Xarelto Tablet, 20 MG, 1 tablet with food, Orally, Once a day.?? Notes: stable, will continue current regiment?? * Procedure Codes:? * Follow Up:?6 Months * * Sign off status: Completed true * Provider:?Gregory Trimble MD Date:?0 07/26/2024 Generated for Stef patel/Ariane/Nicolasitting on:?08/26/2024 03:11 PM EST History and Physical Notes * HPI (History of Present Illness) Category Sub-Category Detail Notes Category Not es Depression Screening PHQ-9 Little inte rest or pleasure in doing things: Not at all still feel lousy. light headed and balance off. [facility] is also doing spine and sport. Feeling down, depressed, or hopeless: No t at all Trouble falling or staying asleep, or sl eeping too much: Not at all Feeling tired or having little energy: N ot at all Poor appetite or overeating: Not at all Feeling bad about yourself o r that you are a failure, or have let yourself or your family down: Not at all Trouble concentrating on thi ngs, such as reading the newspaper or watching television: Not at all Moving or speaking so slowly that other people could have noticed; or the opposite, being so fidgety or restless that you have been moving around a lot more than usual: Not at all Thoughts that you would be b trudi off or of hurting yourself in some way: Not at all Total Score: 0 Interpretation and Intervention Depression Destiny hoffman Findings: Negative Follow-Up for Depression: : review of PH Q-9 found negative result, no follow-up needed SDOH Questions SDOH Questions In the past year have you been worried about losing housing?: No In the past year have you or any family members you live with been unable to get any of the following when it was really needed? Check all that apply:: None Fall Risk History Have you had any falls with injury i n the past year?: No Have you had two or more falls in the year?: No Communication Needs Communication Needs Does the patient have a hearing impairment: No Does the patient have a vision impairmen t?: Yes ?If yes, what is the vision impairment?: Glasses Does the patient have a cognition impair ment?: No Examination Category Sub-Category Detail Notes Category Not es General Examination GENERAL APPEARANCE: well dev eloped, well nourished, in no acute distress HEAD: normocephalic, atrau matic EYES: pupils equal, round, reactive to light and accommodation, sclera non- icteric EARS: normal THROAT: clear NECK/THYROID: neck supple, full ra nge of motion, no cervical lymphadenopathy, no bruits HEART: regular rate and rhy thm, S1, S2 normal, no murmurs LUNGS: clear to auscultatio n bilaterally ABDOMEN: soft, nontender, non distended, bowel sounds present, normal, no organomegaly , no masses palpable NEUROLOGIC: nonfocal, motor stre ngth normal upper and lower extremities, sensory exam intact SKIN: warm and dry, no mitchell picious lesions EXTREMITIES: no clubbing, cyanosi s, or edema MALE GENITOURINARY: declined RECTAL EXAM: declined ORAL CAVITY: mucosa moist
== END 2024-08-26 13:06 | disposition home or self-care (01) ==
LOC: HO.LNP 13:05
PROVIDERS: Visit Provider Internal Medicine
DX: R26.89 Other abnormalities of gait and mobility (principal)
CPT/HCPCS: 82565; 84520

== ENCOUNTER → 2024-08-27 23:59 | Outpatient (BNV) | payer MEDICARE, OTHER, SELFPAY ==
--- NOTE | 2024-08-30 11:06 | MHC.OFFVIS ---
Intake Visit Reasons: Remote device check- Medtronic Allergies No Known Allergies [No Known Allergies*] Allergy (Verified 08/09/24 13:38) [facility] Medical History COPD (chronic obstructive pulmonary disease) Raynaud disease Anxiety Respiratory failure COPD (chronic obstructive pulmonary disease) Cardiac pacemaker in situ Bradycardia Malignant neoplasm of lateral wall of urinary bladder COPD (chronic obstructive pulmonary disease) Hyperlipidemia HTN (hypertension) Pulmonary hypertension (HFpEF) heart failure with preserved ejection fraction CAD (coronary artery disease) Chronic atrial fibrillation Surgical History History of placement of leadless cardiac pacemaker Stented coronary artery H/O transurethral resection of prostate History of prostate surgery History of back surgery History of appendectomy Family History Father Lung cancer Cancer Mother No problems noted. Social History Household Members: Spouse Housing: House Are you a primary home care coordinator to a significant other at home: No Do you presently have visiting nurse or other home services: Yes (Visiting nurse [facility], PT [facility], Wound center on Thu) Alcohol intake: never Patient Tobacco Use Status: Former Tobacco user Second Hand Smoke Exposure: No Advance Directives Date on File: 09/17/21 service: Yes Current occupational status: retired Office Procedures Cardiac Device Check Cardiac Device Check Details: Remote pacemaker report generated 08/27/2024. Pacemaker function is adequate [id number] Cardiac Device Interrogation, pacemaker Procedure code (CPT) selection complete Assessment & Plan Assessment & Plan (1) Cardiac pacemaker in situ: Comment: Medtronic leadless pacemaker implanted on April 17 Code(s): Z95.0 - Presence of cardiac pacemaker Category: Medical Plan: See above Coding Level of Care Code Procedure Only Diagnoses Cardiac pacemaker in situ Z95.0 CPT Codes Cardiac Device Check - Cardiac Device 12: [id number]-[id number] Cardiac Device Interrogation, pacemaker ([id number])
== END ==
PROVIDERS: PCP Internal Medicine; Visit Provider Internal Medicine Cardiovascular Disease
DX: Z45.018 Encounter for adjustment and management of other part of cardiac pacemaker (principal)
CPT/HCPCS: 93294

== ENCOUNTER 2024-08-29 12:55 | Outpatient (AMB) | payer MEDICARE, OTHER, SELFPAY ==
--- NOTE | 2024-08-29 13:14 | A.OFFVIS_ITS ---
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 Required: No Allergies No Known Allergies [No Known Allergies*] Allergy (Verified 08/09/24 13:38) Medication List - Last Reconciled 08/29/24 by Albert Cabrera MD albuterol sulfate 90 mcg/actuation 2 puffs inhalation Q6H PRN atorvastatin 20 mg PO DAILY bethanechol chloride 100 mg (2 x 50 mg) PO BID 90 days ferrous sulfate 325 mg PO DAILY finasteride 5 mg PO DAILY fluticasone propionate 50 mcg/actuation 1 spray intranasal DAILY potassium chloride ER 20 mEq (2 x 10 mEq) PO DAILY rivaroxaban (Xarelto) 20 mg PO DAILY sacubitril-valsartan 24-26 mg (Entresto) 1 tab See Protocol PO BID tadalafil 5 mg PO DAILY 90 days tamsulosin 0.4 mg PO DAILY 90 days tiotropium-olodaterol 2.5-2.5 mcg/actuation (Stiolto Respimat) 2 puffs inhalation Q24H 30 days torsemide 20 mg PO TID HPI Comments Details: [facility] comes for follow-up. He has been doing well on current medications. He has been doing well from cardiac perspective. No worsening shortness of breath, orthopnea, PND, leg edema, weight gain. Uses CPAP at nighttime. Denies any prolonged palpitation irregular heartbeat. Occasional lightheadedness, does not monitor blood pressure at home. No syncopal episodes. No bleeding issues or neurologic events. No exertional chest pain. Takes all his medications. Most recent renal function stable [facility] Medical History COPD (chronic obstructive pulmonary disease) Raynaud disease Anxiety Respiratory failure COPD (chronic obstructive pulmonary disease) Cardiac pacemaker in situ Bradycardia Malignant neoplasm of lateral wall of urinary bladder COPD (chronic obstructive pulmonary disease) Hyperlipidemia HTN (hypertension) Pulmonary hypertension (HFpEF) heart failure with preserved ejection fraction CAD (coronary artery disease) Chronic atrial fibrillation Surgical History History of placement of leadless cardiac pacemaker Stented coronary artery H/O transurethral resection of prostate History of prostate surgery History of back surgery History of appendectomy Family History Father Lung cancer Cancer Mother No problems noted. Social History Household Members: Spouse Housing: House Are you a primary career law clerk to a significant other at home: No Do you presently have visiting nurse or other home services: Yes (Visiting nurse [employer], PT [facility], Wound center on Thu) Alcohol intake: never Patient Tobacco Use Status: Former Tobacco user Second Hand Smoke Exposure: No Advance Directives Date on File: 09/17/21 service: Yes Current occupational status: retired Review of Systems Const Denies chills, Denies fatigue, Denies fever(s), Denies frequent falls, Denies weakness, Denies weight gain and Denies weight loss ENT Denies dizziness Card Denies chest pain, Denies leg edema, Denies lightheadedness, Denies palpitations, Denies dyspnea, Denies dyspnea on exertion, Denies orthopnea and Denies other (loss of consciousness) Resp Denies cough, Denies dyspnea and Denies dyspnea on exertion GI Denies hematochezia and Denies change in stool character Musc Denies abnormal gait, Denies muscle weakness, Denies numbness, Denies radiating pain into limb and Denies tingling Neuro Denies abnormal gait, Denies dizziness, Denies frequent falls, Denies numbness, Denies tingling and Denies weakness Endo Denies fatigue and Denies palpitations Physical Exam Vital Signs: Last Vital Signs Pulse 80 08/29/24 13:15 BP 122/74 08/29/24 13:15 BMI result Body Mass Index 20.9 Const General: cooperative, comfortable, no acute distress, alert and awake Nutritional Appearance: thin, underweight and other (Frail elderly man) Orientation/consciousness: patient oriented x3 Limitations: no limitations Neck Neck: Yes trachea midline, Yes supple and Yes no JVD Resp Effort & Inspection: normal respiratory effort Auscultation: clear to auscultation bilaterally and diminished lung sounds Cardio Jugular venous distension: no JVD Palpation: abnormal PMI displaced PMI Rhythm: abnormal rhythm irregularly irregular Heart sounds: S1 normal heart sound present, S2 normal heart sound present, no click, no gallops and no murmurs GI Auscultation: normal bowel sounds Skin General skin exam: no rashes or lesions noted and ecchymosis Neuro General: patient oriented x3 and no focal motor deficits Extrem General: Yes no clubbing, cyanosis or edema Office Procedures Cardiac Device Check Cardiac Device Check Details: Medtronic lead less pacemaker in place programmed in VVI at 50 beats per minute. Ventricular pacing 89% of time. Underlying atrial fibrillation. Ventricular pacing thresholds adequate and in auto capture mode. [id number] Cardiac Device Check, leadless/single lead pacemaker Procedure code (CPT) selection complete Assessment & Plan Assessment & Plan (1) Congestive heart failure: Comment: CHRONIC CARDIOMYOPATHY AND CONGESTIVE HEART FAILURE , SEEMS TO BE UNDER GOOD CONTROL . BEING FOLLOWED BY CARDIOLOGY . Code(s): I50.9 - Heart failure, unspecified Category: Medical Plan: Heart failure preserved ejection fraction, clinically euvolemic and well compensated current diuretic dose with torsemide. Heart failure management discussed again. Daily weight monitoring avoidance salt loading was discussed. Continue current neurohormonal modulation with Entresto therapy. Can not further uptitrate therapy due to low blood pressure. (2) Chronic atrial fibrillation: Code(s): I48.20 - Chronic atrial fibrillation, unspecified Category: Medical Plan: Chronic atrial fibrillation, currently rate control. Continue to monitor by pacer telemetry. Continue full oral anticoagulation, currently on Xarelto 20 mg daily. Quarterly renal function test should be pursued. (3) Cardiac pacemaker in situ: Comment: Medtronic leadless pacemaker implanted on April 17 Code(s): Z95.0 - Presence of cardiac pacemaker Category: Medical Plan: Cardiac pacemaker in-situ, leadless Medtronic pacemaker working well. Patient pacing about 89% time. No obvious pacemaker malfunction. Will continue monitor remotely as well as in the clinic. (4) CAD (coronary artery disease): Code(s): I25.10 - Atherosclerotic heart disease of [place] coronary artery without angina pectoris Category: Medical Plan: CAD stable without any anginal symptoms. Continue aggressive statin therapy with target goal LDL less than 55 mg/dL, currently achieved. Blood pressure is optimized. Currently on full oral anticoagulation Xarelto and will therefore avoid aspirin therapy. Will follow up in the clinic in 6 months time, sooner p.r.n.. Thank you for allowing me to partake in his care Coding Level of Care Code Est Pt Level 4 (81966) Complex EM visit Add On G2211 Diagnoses Congestive heart failure I50.9 Chronic atrial fibrillation I48.20 Cardiac pacemaker in situ Z95.0 CAD (coronary artery disease) I25.10 CPT Codes Cardiac Device Check - Cardiac Device 1: [id number] Cardiac Device Check, leadless/single lead pacemaker ([id number])
[2024-08-29 13:15] VITALS: BP 122/74; PULSE 80; BMI 20.9
--- OUTSIDE RECORDS SUMMARY | 2024-08-29 15:07 | XMS_ITS | Continuity of Care Document ---
Author Name [facility] Organization [facility] Care Team Providers Care Manager Hospitality Name Role Phone [facility] Unavailable Unavailable Problems Combined list of problems from Department of Defense and Veterans Affairs facilities. It does not include entries that were removed or entered in error. Problem Status Onset Date Problem Type Date of Resolution Comments Source Colonic Polyps Active 05/23/20 08 Condition Sep 21, 2008 Entered By: PRIYANKA LITTLE Comment: benign polyps next colo 04/17/2013 [place] AF- Atrial Fibrillation ([facility] [id number]) Active Condition [facility] Bilateral Cataracts Active Condition Dec 10, 2009 Entered By: PRIYANKA LITTLE Comment: exam 11/06/2009 [place] Bladder cancer Active Condition [facility] CAD - Coronary Artery Disease ([facility] [id number]) Active Condition Jul 11, 2020 Entered By: TEE GRAVES Comment: s/p 2 stents [facility] Carotid artery stenosis Active Condition [facility] CHF - Congestive Heart Failure (SCT 34064425) Active Condition [facility] COPD - Chronic Obstructive Pulmonary Disease ([facility] [id number]) Active Condition [facility] Hyperplasia of Prostate, unspecified, without Urinary obstruction and other lowe Active Condition [place] Hypertensive heart disease with congestive heart failure (SNOMED CT 2849784) Active Condition Sep 15, 2022 Entered By: HOMERO FARIA Comment: +microalbuminuri a [facility] Hypertensive retinopathy Active Condition Dec 10, 2009 Entered By: PRIYANKA LITTLE Comment: right eye [place] Non-[facility] providers Active Condition Jul 11, 2020 Entered By: TEE GRAVES Comment: PCP-Dr.Glen Resendez 2020 Entered By: TEE GRAVES Comment: 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 Albert New 2020 Entered By: TEE GRAVES Comment: Urologist-Dr. Markus Bruce 2022 Entered By: JEN DAVILA Comment: Dr. Gregory Rojo--telep [facility] # [phone] [facility] Normocytic anemia Active Condition Sep 08, 2022 Entered By: HOMERO FARIA Comment: persistent [place] Sleep Apnea (SCT [id number]) Active Condition [facility] Spinal stenosis of lumbar region Active Condition Sep 21, 2008 Entered By: PRIYANKA LITTLE Comment: surgery l4-l5 decompression 06/01/08 [place] Wound Active Condition Aug 01 Entered By: TEE GRAVES Comment: Right lower leg woundFeb 2020 Entered By: TEE GRAVES Comment: Managed by [facility] [place] [facility] Diagnosis: ICD-10-CM R42 Dizziness and giddiness Active Diagnosis [facility] Diagnosis: ICD-10-CM Z23 Encounter for immunization Active Diagnosis [place] Diagnosis: ICD-10-CM R53.83 Other fatigue Active Diagnosis [place] Diagnosis: ICD-10-CM Z91.89 Oth personal risk factors, not elsewhere classified Active Diagnosis [place] Diagnosis: ICD-10-CM R63.4 Abnormal weight loss Active Diagnosis [place] Diagnosis: ICD-10-CM Z04.89 Encounter for examination and observation for oth reasons Active Diagnosis [place] Diagnosis: ICD-10-CM Z00.01 Encounter for general adult medical exam w abnormal findings Active Diagnosis [facility] Medications Combined list of outpatient medications from [...] BRONCHOS [facility] RESPIR ATORY (INHAL ATION) 05/25/2024 [id number] 3 BIENVENIDOOSVALDOLINARI O 2022 3 [place] AMLODIPINE BESYLATE 5MG TAB TAKE ONE TABLET BY MOUTH ONCE DAILY ORAL ACTIVE TEE GRAVES 2020 [place] ATORVASTATI N CA 40MG TAB TAKE ONE-HALF TABLET BY MOUTH ONCE DAILY ORAL SUSPEND ED 06/03/2025 [id number] 5 RA FREDERICK DE SOUZA 2024 45 [place] ATORVASTATI N CA 40MG TAB TAKE ONE-HALF TABLET BY MOUTH ONCE DAILY ORAL DISCONT INUED 08/20/2024 [id number] 4 BIENVENIDOOSVALDOLINARI O 2023 45 [place] ATORVASTATI N CA 40MG TAB TAKE ONE-HALF TABLET BY MOUTH ONCE DAILY ORAL DISCONT INUED 08/20/2023 [id number] ARTEM FARIAARI O 2023 23 [place] BETHANECHOL CL 25MG TAB TAKE TWO TABLETS BY MOUTH TWICE DAILY FOR URINARY RETENTIO N ORAL SUSPEND ED 07/22/2025 [id number] 5 RA FREDERICK DE SOUZA 2024 360 [facility] BETHANECHOL CL 25MG TAB TAKE TWO TABLETS BY MOUTH TWICE DAILY FOR URINARY RETENTIO N ORAL DISCONT INUED 11/09/2024 [id number] 5 ARTEM FARIAARI O 2023 360 [facility] BETHANECHOL CL 25MG TAB TAKE TWO TABLETS BY MOUTH TWICE DAILY FOR URINARY RETENTIO N ORAL DISCONT INUED 07/23/2024 [id number] ADDIS FARAH MD 2023 360 [facility] FERROUS SO4 325MG TAB TAKE ONE TABLET BY MOUTH ONCE DAILY ORAL ACTIVE MELANIA MCGUIRE [address] [facility] FINASTERIDE 5MG TAB TAKE ONE TABLET BY MOUTH ONCE DAILY FOR PROSTATE ORAL SUSPEND ED 12/30/2024 [id number] 5 BIENVENIDO, APOLINARI O 2023 90 [place] FINASTERIDE 5MG TAB TAKE ONE TABLET BY MOUTH ONCE DAILY FOR PROSTATE ORAL DISCONT INUED 12/17/2023 [id number] BIENVENIDO APOLINARI O 2022 90 [place] FINASTERIDE 5MG TAB TAKE ONE TABLET BY MOUTH ONCE DAILY ORAL ACTIVE MANSIU ,TEE 2020 [place] OLODATEROL 2.5MCG/TIOT ROPIUM 2.5MCG/ACTU AT [facility],ORAL,6 0D,4GM INHALE 2 PUFFS (1 DOSE) BY MOUTH ONCE DAILY RESPIR ATORY (INHAL ATION) SUSPEND ED 03/05/2025 [id number] 5 BIENVENIDO APOLINARI O 2023 3 [place] OLODATEROL 2.5MCG/TIOT ROPIUM 2.5MCG/ACTU AT [facility],ORAL,6 0D,4GM INHALE 2 PUFFS (1 DOSE) BY MOUTH ONCE DAILY RESPIR ATORY (INHAL ATION) DISCONT INUED 05/25/2024 [id number] NIVIA FARIA O 2022 3 I[place] POTASSIUM CHLORIDE 10MEQ TAB,SA TAKE ONE TABLET BY MOUTH ONCE DAILY ORAL ACTIVE ELY ,TEE [place] RIVAROXABAN 15MG TAB TAKE ONE TABLET BY MOUTH ONCE DAILY TO PREVENT BLOOD CLOTS WITH FOOD DOSE REDUCTIO N:DISCON TINUE 20MG TABS) ORAL SUSPEND ED 06/24/2025 [id number] 5 BIENVENIDONIVIA O 2024 90 [place] RIVAROXABAN 15MG TAB TAKE ONE TABLET BY MOUTH ONCE DAILY TO PREVENT BLOOD CLOTS WITH FOOD DOSE REDUCTIO N:DISCON TINUE 20MG TABS) ORAL DISCONT INUED 07/10/2024 [id number] OSVALDO FARIALINARI O 2023 90 [place] RIVAROXABAN 20MG TAB TAKE ONE TABLET BY MOUTH ONCE DAILY WITH FOOD ORAL DISCONT INUED (EDIT) 05/25/2024 [id number] BIENVENIDO, APOLINARI O 2022 90 [place] SACUBITRIL 24MG/VALSAR JAQUEZ 26MG TAB TAKE 1 TABLET BY MOUTH TWICE DAILY ORAL SUSPEND ED 03/05/2025 [id number] 5 BIENVENIDO, APOLINARI O 2023 180 [place] SACUBITRIL 24MG/VALSAR JAQUEZ 26MG TAB TAKE 1 TABLET BY MOUTH TWICE DAILY ORAL DISCONT INUED 03/22/2024 [id number] 4 BIENVENIDO, APOLINARI O 2022 180 [place] TADALAFIL 5MG TAB TAKE ONE TABLET BY MOUTH ONCE DAILY ORAL ACTIVE BIENVENIDO, APOLINARI O 2023 [place] TAMSULOSIN HCL 0.4MG CAP TAKE 1 CAPSULE BY MOUTH ONCE DAILY ORAL ACTIVE TEE GRAVES 2020 [place] TORSEMIDE 20MG TAB TAKE THREE TABLETS BY MOUTH ONCE DAILY ORAL SUSPEND ED 03/05/2025 [id number] 5 BIENVENIDO, APOLINARI O 2023 270 [place] TORSEMIDE 20MG TAB TAKE THREE TABLETS BY MOUTH ONCE DAILY ORAL DISCONT INUED 05/25/2024 [id number] 4 BIENVENIDO, APOLINARI O 2022 270 [place] Immunizations Combined list of available immunizations from the Department of Defense and Veterans Affairs facilities. Immunization Series Date Given Administered By Site Reaction Lot Number CVX Code Drug Assistant Secretary Status Comments Source COVID-19 (MODERNA), MRNA, LNP-S, PF, 50 MCG/0.5 ML (AGES 12+ YEARS) 2023 CHRYSTAL DAVILA RIGHT DELTO ID [id number] 312 complet ed [place] PNEUMOCOCCAL CONJUGATE PCV20, POLYSACCHARID E [id number] CONJUGATE, ADJUVANT, PF 2023 CHRYSTAL DAVILA LEFT DELTO ID [id number] 216 complet ed [facility] INFLUENZA, UNSPECIFIED FORMULATION 2023 88 complet ed [facility] RSV, BIVALENT, PROTEIN SUBUNIT RSVPREF, DILUENT RECONSTITUTED , 0.5 ML, PF 2022 GIOVANNICHRYSTAL Lonny Zhu RIGHT DELTO ID [id number] 305 complet ed [id number] EXP. [id number] EXP [place] COVID-19 (MODERNA), MRNA, LNP-S, PF, 50 MCG/0.5 ML (AGES 12+ YEARS) 1 2022 CHRYSTAL DAVILA Lonny Zhu LEFT DELTO ID [id number] 312 complet ed [place] INFLUENZA, UNSPECIFIED FORMULATION 2022 88 complet ed [facility] COVID-19 (MODERNA), MRNA, LNP-S, BIVALENT BOOSTER, PF, 50 MCG/0.5 ML OR 25MCG/0.25 ML DOSE 1 2022 FLORES LOZA LEFT ARM [id number] 229 complet ed [facility] DOSE 3 2020 207 complet ed MOD; [id number]; 2 [facility] INFLUENZA VACCINE, QUADRIVALENT, ADJUVANTED 2020 205 complet ed [facility] [place] COVID-19 (MODERNA), MRNA, LNP-S, PF, 100 MCG/0.5 ML DOSE 2 2020 207 complet ed MOD; [id number]; 1 [facility] I[place] COVID-19 (MODERNA), MRNA, LNP-S, PF, 100 MCG/0.5 ML DOSE 1 2020 207 complet ed MOD; [id number]; 1 [place] INFLUENZA, UNSPECIFIED FORMULATION 2019 [...] Feb 03, 2024 11:33 AM Reporting Lab: [facility] [place] [facility] [address] [facility] [address] Performing Lab: [facility] [place] [facility] [address] [facility] [address] [facility] [place] [facility] TSH THYROTROPIN [UNITS/VOLU ME] IN SERUM OR PLASMA 2.33 u[IU]/ mL 0.35 - 5.00 02/02 Specimen Type: SERUM No comment entered. Ordering Provider: NIKKI FARIA Report Released Date/Time: Feb 03, 2024 11:33 AM Reporting Lab: [facility] [place] [facility] [address] [facility] [address] Performing Lab: [facility] [place] [facility] [address] [facility] [address] [facility] [place] [facility] VITAMIN D (25-OH) 25-HYDROXYV ITAMIN D3 [MASS/VOLUM E] IN SERUM OR PLASMA 30 ng/mL 20 - 50 02/02 Specimen Type: SERUM No comment entered. Ordering Provider: NIKKI FARIA Report Released Date/Time: Feb 03, 2024 11:33 AM Reporting Lab: [facility] [place] [facility] [address] [facility] [address] Performing Lab: [facility] [place] [facility] [address] [facility] [address] [facility] [place] [facility] FOLATE (WROX) FOLATE [MASS/VOLUM E] IN SERUM OR PLASMA 6.28 ng/mL 5.2 02/02 Specimen Type: SERUM No comment entered. Ordering Provider: NIKKI FARIA Report Released Date/Time: Feb 03, 2024 11:34 AM Reporting Lab: [facility] [place] [facility] [address] [facility] [address] Performing Lab: [facility] [place] [facility] [address] [facility] [address] [facility] [place] [facility] FERRITIN FERRITIN [MASS/VOLUM E] IN SERUM OR PLASMA 110 ng/mL 20 - 300 02/02 Specimen Type: SERUM No comment entered. Ordering Provider: NIKKI FARIA Report Released Date/Time: Feb 03, 2024 11:34 AM Reporting Lab: [facility] [place] [facility] [address] [facility] [address] Performing Lab: [facility] [place] [facility] [address] [facility] [address] [facility]N [facility]USE [facility] LIPID PANEL FASTING CHOLESTEROL [MASS/VOLUM E] IN SERUM OR PLASMA 98 mg/dL 02/02 Specimen Type: SERUM No comment entered. Ordering Provider: NIKKI FARIA Report Released Date/Time: Feb 03, 2024 11:33 AM Reporting Lab: [facility] [place] [facility] [address] [facility] [address] Performing Lab: [facility] [place] [facility] [address] [facility] [address] [facility] LIPID PANEL FASTING TRIGLYCERID E [MASS/VOLUM E] IN SERUM OR PLASMA 65 mg/dL 0 - 150 02/02 Specimen Type: SERUM No comment entered. Ordering Provider: NIKKI FARIA Report Released Date/Time: Feb 03, 2024 11:33 AM Reporting Lab: [facility] [address] [facility] [address] Performing Lab: [facility] [address] [facility] [address] [facility]ITALRCEN[facility] LIPID PANEL FASTING CHOLESTEROL IN LDL [MASS/VOLUM E] IN SERUM OR PLASMA BY CALCULATION 41 mg/dL 0 - 129 02/02 Specimen Type: SERUM No comment entered. Ordering Provider: NIKKI FARIA Report Released Date/Time: Feb 03, 2024 11:33 AM Reporting Lab: [facility] [address] [facility] [address] Performing Lab: [facility] [address] [facility] [address] [facility] LIPID PANEL FASTING CHOLESTEROL .TOTAL/CHOL ESTEROL IN HDL [MASS RATIO] IN SERUM OR PLASMA 2.2 02/02 Specimen Type: SERUM No comment entered. Ordering Provider: NIKKI FARIA Report Released Date/Time: Feb 03, 2024 11:33 AM Reporting Lab: [facility] [place] [facility] [address] [facility] [address] Performing Lab: [facility]ITAL[facility] [address] [facility] [address] [facility]TRN [facility] LIPID PANEL FASTING CHOLESTEROL IN HDL [MASS/VOLUM E] IN SERUM OR PLASMA 44 mg/dL 40 - 60 02/02 Specimen Type: SERUM No comment entered. Ordering Provider: NIKKI FARIA Report Released Date/Time: Feb 03, 2024 11:33 AM Reporting Lab: [facility] [place] [facility] [address] [facility] [address] Performing Lab: [facility] [place] [facility] [address] [facility] [address] [facility] [place] [facility] BASIC METABOLIC PANEL (fasting) UREA NITROGEN [MASS/VOLUM E] IN SERUM OR PLASMA 44 mg/dL 7 - 25 02/02 H Specimen Type: SERUM No comment entered. Ordering Provider: NIKKI FARIA Report Released Date/Time: Feb 03, 2024 11:33 AM Reporting Lab: [facility] [place] [facility] [address] [facility] [address] Performing Lab: [facility] [place] [facility] [address] [facility] [address] [facility] [place] [facility] BASIC METABOLIC PANEL (fasting) GLUCOSE [MASS/VOLUM E] IN SERUM OR PLASMA 91 mg/dL 65 - 100 02/02 Specimen Type: SERUM No comment entered. Ordering Provider: NIKKI FARIA Report Released Date/Time: Feb 03, 2024 11:33 AM Reporting Lab: [facility] [place] [facility] [address] [facility] [address] Performing Lab: [facility] [place] [facility] [address] [facility] [address] [facility] [place] [facility] BASIC METABOLIC PANEL (fasting) SODIUM [MOLES/VOLU ME] IN SERUM OR PLASMA 137 mmol/L 135 - 145 02/02 Specimen Type: SERUM No comment entered. Ordering Provider: NIKKI FARIA Report Released Date/Time: Feb 03, 2024 11:33 AM Reporting Lab: [facility] [place] [facility] [address] [facility] [address] Performing Lab: [facility] [place] [facility] [address] [facility] [address] [facility] [place] [facility] BASIC METABOLIC PANEL (fasting) POTASSIUM [MOLES/VOLU ME] IN SERUM OR PLASMA 4.1 mmol/L 3.5 - 5.0 02/02 Specimen Type: SERUM No comment entered. Ordering Provider: NIKKI FARIA Report Released Date/Time: Feb 03, 2024 11:33 AM Reporting Lab: [facility] [address] [facility] [address] Performing Lab: [facility]USE[address] [address] [facility] TRN [facility]ITALUSE [facility] BASIC METABOLIC PANEL (fasting) CHLORIDE [MOLES/VOLU ME] IN SERUM OR PLASMA 105 mmol/L 100 - 110 02/02 Specimen Type: SERUM No comment entered. Ordering Provider: NIKKI FARIA Report Released Date/Time: Feb 03, 2024 11:33 AM Reporting Lab: [facility] TRN [address] [address] Performing Lab: [facility] TRN [facility]ITALUSE[address] [address] [facility]ITALRCENTRAL [facility]N [facility] BASIC METABOLIC PANEL (fasting) CARBON DIOXIDE, TOTAL [MOLES/VOLU ME] IN SERUM OR PLASMA 24 meq/L 20 - 30 02/02 Specimen Type: SERUM No comment entered. Ordering Provider: NIKKI FARIA Report Released Date/Time: Feb 03, 2024 11:33 AM Reporting Lab: [facility]ITALRREG[facility]AL REHABIL[facility] HOSPITALTRN [facility]USE[address] [address] Performing Lab: [facility] W[facility] [address] [facility]ITALRCENTRAL [facility]N [facility] BASIC METABOLIC PANEL (fasting) CREATININE [MASS/VOLUM E] IN SERUM OR PLASMA 1.12 mg/dL 0.50 - 1.40 02/02 Specimen Type: SERUM No comment entered. Ordering Provider: NIKKI FARIA Report Released Date/Time: Feb 03, 2024 11:33 AM Reporting Lab: [facility]ITALR[facility] REHABIL[facility] HOSPITALTRN [facility]USE[address] [address] Performing Lab: [facility] [address] [facility] [address] [facility]N [facility]ITALUSE [facility] BASIC METABOLIC PANEL (fasting) GLOMERULAR FILTRATION RATE/1.73 SQ M.PREDICTED [VOLUME RATE/AREA] IN SERUM, PLASMA OR BLOOD BY CREATININE- BASED FORMULA (CKD-EPI 2020) 63 mL/min 60 02/02 Specimen Type: SERUM No comment entered. Ordering Provider: NIKKI FARIA Report Released Date/Time: Feb 03, 2024 11:33 AM Reporting Lab: [facility] [place] [facility] [address] [facility] [address] Performing Lab: [facility]ITALR[facility]AL REHABIL[facility]ATION HOSPITALTRN [facility]ITALUSEAR[facility] [address] [facility] [address] [facility] LIVER FUNCTION PROTEIN [MASS/VOLUM E] IN SERUM OR PLASMA 7.4 g/dL 6.0 - 8.3 02/02 Specimen Type: SERUM No comment entered. Ordering Provider: NIKKI FARIA Report Released Date/Time: Feb 03, 2024 11:33 AM Reporting Lab: [facility] TRN [facility] [address] [facility] [address] Performing Lab: [facility] TRN [facility]ITALUSEAR[facility] [address] [facility] [address] [facility] LIVER FUNCTION ALBUMIN [MASS/VOLUM E] IN SERUM OR PLASMA 4.1 g/dL 3.5 - 5.0 02/02 Specimen Type: SERUM No comment entered. Ordering Provider: NIKKI FARIA Report Released Date/Time: Feb 03, 2024 11:33 AM Reporting Lab: [facility] TRN [facility]ITALUSETS [facility] [address] [facility] [address] Performing Lab: [facility]ITALR[facility]IONAL REHABILITATION HOSPITALTRN [facility]PITALUSETS [facility] [address] [facility] [address] [facility] LIVER FUNCTION ALKALINE PHOSPHATASE [ENZYMATIC ACTIVITY/VO LUME] IN SERUM OR PLASMA 64 U/L 40 - 150 02/02 Specimen Type: SERUM No comment entered. Ordering Provider: NIKKI FARIA Report Released Date/Time: Feb 03, 2024 11:33 AM Reporting Lab: [facility] [place] [facility] [address] [facility] [address] Performing Lab: [facility] [place] [facility] [address] [facility] [address] [facility] [place] [facility] LIVER FUNCTION ASPARTATE AMINOTRANSF ERASE [ENZYMATIC ACTIVITY/VO LUME] IN SERUM OR PLASMA 17 U/L 5 - 34 02/02 Specimen Type: SERUM No comment entered. Ordering Provider: NIKKI FARIA Report Released Date/Time: Feb 03, 2024 11:33 AM Reporting Lab: [facility] [place] [facility] [address] [facility] [address] Performing Lab: [facility] [place] [facility] [address] [facility] [address] [facility] [place] [facility] LIVER FUNCTION ALANINE AMINOTRANSF ERASE [ENZYMATIC ACTIVITY/VO LUME] IN SERUM OR PLASMA 7 U/L 02/02 Specimen Type: SERUM No comment entered. Ordering Provider: NIKKI FARIA Report Released Date/Time: Feb 03, 2024 11:33 AM Reporting Lab: [facility] [place] [facility] [address] [facility] [address] Performing Lab: [facility] [place] [facility] [address] [facility] [address] [facility] [place] [facility] LIVER FUNCTION BILIRUBIN.T OTAL [MASS/VOLUM E] IN SERUM OR PLASMA 0.9 mg/dL 0.2 - 1.2 02/02 Specimen Type: SERUM No comment entered. Ordering Provider: NIKKI FARIA Report Released Date/Time: Feb 03, 2024 11:33 AM Reporting Lab: [facility] [place] [facility] [address] [facility] [address] Performing Lab: [facility] [place] [facility] [address] [facility] [address] [facility] [place] [facility] HEMOGLOBI N A1C PANEL HEMOGLOBIN [...] Feb 03, 2024 11:33 AM Reporting Lab: [facility] [place] [facility] [address] [facility] [address] Performing Lab: [facility] [place] [facility] [address] [facility] [address] [facility] [place] [facility] CALCIUM CALCIUM [MASS/VOLUM E] IN SERUM OR PLASMA 9.2 mg/dL 8.5 - 10.2 02/02 Specimen Type: SERUM No comment entered. Ordering Provider: NIKKI FARIA Report Released Date/Time: Feb 03, 2024 11:33 AM Reporting Lab: [facility] [place] [facility] [address] [facility] [address] Performing Lab: [facility] [place] [facility] [address] [facility] [address] [facility] [place] [facility] Vital Signs Combined list of inpatient and outpatient Vital Signs from Department of Defense and Veterans Affairs, ranging from 12 months to all on record, depending upon the facility. Vital Sign Value Date Comments Source SYSTOLIC BLOOD PRESSURE 120 05/25/20 24 13:39:34 [facility] [place] [facility] DIASTOLIC BLOOD PRESSURE 56 024 13:39:34 [facility] [place] [facility] PULSE OXIMETRY 90 05/25/2024 13:39:34 [facility] [place] [facility] WEIGHT 162.8 05/25/2024 13:39:34 [facility] [place] [facility] BMI 22 kg/m2 05/25/2024 13:39:34 [facility] [place] [facility] PAIN 0 05/25/2024 13:39:34 [facility] [...] 20 11/25/2023 13:19:22 [facility] [place] [facility] Encounters Combined list of: 1) Encounters from Department of Veterans Affairs facilities going backup to the last 18 months, not all [facility] inpatient encounters are included; 2) Encounters from the [facility] of [facility] [facility] facilities going backup to 280 months. Location Location Details Encounter Type Encounter Number Reason For Visit Attending Provider ADM Date DC Date Status Disposition Source [facility] Outpatient Encounter [id number] 03/20 [facility] Outpatient Encounter [id number] 04/10 [facility] Outpatient Encounter [id number] 04/20 [facility] [place] [place] [facility] Outpatient Encounter [id number] 05/04 [facility] [place] [place] [facility] [place] OFF/OP EST OCTOBER X REQ PHY/QHP [id number] Diagnos is: ICD-10- CM Z23 Encount er for immuniz ation GIOVANNIL YUE H 05/06 [facility] [place] [facility] [place] QNHP OL DIG ASSMT&MGMT 5-10 [id number] Diagnos is: ICD-10- CM Z04.89 Encount er for examina tion and observa tion for oth reasons NATACHARAISSADIMA HAJIGALLITO J 05/11 [facility] [place] [place] [facility] [place] OFF[place] O/P EST MOD 30-39 MIN [id number] Diagnos is: ICD-10- CM Z00.01 Encount er for general adult medical exam w abnorma l finding s BIENVENIDO,A POLINARIO 05/25 [place] [facility] [place] Outpatient Encounter [id number] 05/27 [facility] [place] [place] [facility] [place] OFF/OP EST OCTOBER X REQ PHY/QHP [id number] Diagnos is: ICD-10- CM Z23 Encount er for immuniz ation GIOVANNI,L YUE H 06/02 [place] [facility] QNHP OL DIG ASSMT&MGMT 5-10 [id number] Diagnos is: ICD-10- CM Z04.89 Encount er for examina tion and observa tion for oth reasons BOBO VERDUGO 06/11 [facility] Outpatient Encounter [id number] 06/19 [facility] Outpatient Encounter [id number] 07/03 [facility] QNHP OL DIG ASSMT&MGMT 5-10 [id number] Diagnos is: ICD-10- CM Z04.89 Encount er for examina tion and observa tion for oth reasons AYDEN REYNOSO 07/09 [facility] [place] [place] [facility] [place] QNHP OL DIG ASSMT&MGMT 5-10 [id number] Diagnos is: ICD-10- CM Z04.89 Encount er for examina tion and observa tion for oth reasons KIM CARROLL IE 07/15 [facility] MOD 30 MIN [id number] Diagnos is: ICD-10- CM R63.4 Abnorma l weight loss Lonny FARIA 08/25 [facility] [facility] Out[facility] Encounter [id number] 08/26 [facility] Out[facility] Encounter [id number] 09/23 [facility] Out[facility] Encounter [id number] 10/22 [facility] Out[facility] Encounter [id number] 11/02 [facility] Out[facility] Encounter [id number] 11/05 [facility] Out[facility] Encounter [id number] 11/05 [facility] Out[facility] Encounter [id number] 11/10 [facility] Out[facility] Encounter [id number] 11/15 [facility] [place] OFF[place] O/P EST MOD 30 MIN [id number] Diagnos is: ICD-10- CM Z91.89 Oth persona l risk factors , not elsewhe re classif ied BIENVENIDO,A POLINARIO 11/24 [place] Out[place] Encounter [id number] BIENVENIDO,A POLINARIO 11/24 [place] OFF[place] O/P EST MOD 30 MIN [id number] Diagnos is: ICD-10- CM R53.83 Other fatigue BIENVENIDO,A POLINARIO 02/02 [place] [facility] Outpatient Encounter [id number]/02 [facility] [place] [place] Outpatient Encounter [id number] Diagnos is: ICD-10- CM R53.83 Other fatigue BIENVENIDO,A POLINARIO 02/04 [place] [facility] Outpatient Encounter [id number] 02/17 [facility] [place] [place] [facility] Outpatient Encounter [id number] 1.04/29 [facility] [place] [place] [facility] Outpatient Encounter [id number] 1.05/08 [facility] [place] [place] OFF/OP EST MAY X REQ PHY/QHP [id number] Diagnos is: ICD-10- CM Z23 Encount er for immuniz atMaribel Cole [place] [facility] Outpatient Encounter [id number] 05/16 [facility] [place] [place] [facility] OFFICE O/P EST MOD 30 MIN [id number] 1BY. [id number] Diagnos is: ICD-10- CM R42 Dizzine ss and giddine ss BIENVENIDO,A POLINARIO 05/25 [place] [facility] SELF CARE MNGMENT TRAINING [id number] 1. Diagnos is: ICD-10- CM R42 Dizzine ss and giddine ss VIC SANTOS 05/31 [facility] [place] [place] [facility] Outpatient Encounter [id number] 06/01 [facility] Encounter [id number] 06/21 [facility] Out[facility] Encounter [id number] 07/20 [facility] Out[facility] Encounter [id number] 08/10 [facility] Outpatient Encounter [id number] 08/10 [facility] [place] Social History Combined list of available smoking, tobacco, and other social history from Department of Defense and Veterans Affairs facilities. Social History Type Response Date Comment [facility] e Tobacco smoking status [facility]-TOBACCO FORMER USER 05/16/2024 [facility] History of tobacco use [facility]-TOBACCO QUIT 15 YRS OR MORE 05/16/2024 [facility] History of tobacco use [facility]-TO[facility]ACCO FORMER USER 05/06/2023 [facility] History of tobacco use [facility]-TOBACCO QUIT 15 YRS OR MORE 05/28/2022 [facility] History of tobacco use [facility]-TOBACCO FORMER USER 07/11/2020 [facility] History of tobacco use QUIT TOBACCO USE 1-7 YEARS AGO 03/29/2009 stopped tobacco 5 years ago [facility] History of tobacco use QUIT TOBACCO USE 1-7 YEARS AGO 03/09/2008 [facility] History of tobacco use QUIT TOBACCO USE 1-7 YEARS AGO 08/19/2007 [facility] History of tobacco use QUIT TOBACCO USE 1-7 YEARS AGO 08/13/2006 stopped tobacco 4 years ago [facility] History of tobacco use QUIT TOBACCO USE 1-7 YEARS AGO 08/08/2005 [facility] History of tobacco use QUIT TOBACCO USE IN PAST YEAR 03/06/2005 Pt quit 2002 [facility] History of tobacco use QUIT TOBACCO USE IN PAST YEAR 12/24/2004 [facility] History of tobacco use HISTORY OF SMOKING 07/30/2004 Quit 3 years ago [facility] Plan of Care List of future care activities from [facility] facilities. Additional future care activities may be listed in the Assessment and Plan section. Date/Time Care Activity Care Activity Detail Facili ty 10/10/2024 AMBULATORY - MEDICINE [facility] Advance Directives List of completed, amended, or rescinded Advance Directives on record at [facility] facilities. An actual copy of the Directive is not included. Date Advance Directive Provider Source 03/15/2008 ADVANCE DIRECTIVE GERARDO MARSH [facility]
--- OUTSIDE RECORDS SUMMARY | 2024-08-29 15:08 | XMS_ITS ---
Author Organization Gregory Trimble MD Address [address] [place] [phone] Care Team Providers Care Junior Accountant Bookkeeper Name Role Phone Gregory Trimble Primary Care Provider Results Component Value Reference Range Notes Complete Blood Count Auto Di ff Reviewed date:07/19/2024 04:33:21 PM Interpretation: Performing Lab:[facility], [address] [place] [phone] Notes/Report: White Blood Count 4.8 4.8-10.8 X10*3/uL [...] NRBC Abs Auto 0.000 0.0-0.012 X10*3/uL Comprehensive [place]. Panel Fa st Reviewed date:07/19/2024 04:35:22 PM Interpretation: Performing Lab:[facility], [address] [place] [phone] Notes/Report: Sodium 142 135-145 mmol/L Potassium 3.9 [...] PROFILE Reviewed date:07/19/2024 04:29:40 PM Interpretation: Performing Lab:[address] [phone] Notes/Report: Iron 52 45-160 mcg/dL Total Iron Binding Capacity 305 228-428 mcg/d L Percent Iron Saturation 17 15-50 % Unsaturated Iron Binding 253 Lipid Panel Reviewed date:07/19/2024 04:29:28 PM Interpretation: Performing Lab:[address] [phone] Notes/Report: Triglycerides 51 <150 mg/dL Desirable Triglyceride: [...] (Free>4and<10) Reviewed date:07/19/2024 04:32:43 PM Interpretation: Performing Lab:[address] [phone] Notes/Report: PSA,Total (Free>4and<10) 0.50 0.00-4.00 ng/mL A [...] Location Date Provider Diagnosis Gregory Trimble MD [address] [place] [phone] 07/19/2024 Gregory Trimble Essential (primary) hypertension I10 [...] Details Provider Name:Gregory brown, 01/19/2025 07:30:00 AM, [address] [place] [address], [address], [phone], Provider Name:Gregory brown, 01/26/2025 10:15:00 AM, [address] [place] [address], [phone], Provider Name:Gergory brown, 07/21/2025 07:45:00 AM, [address] [place] [address], [phone], Provider Name:Gregory Reedhaider ier, 07/28/2025 11:00:00 AM, [address] [facility] [address], [address], [place], [place], [phone], Progress Notes * Duke FELTONDOB:1935 (88 yo M)Acc No.[id number]:07/19/2024 Progress Note Patient:?Duke FELTON Provider:?Gregory Trimble MD :1935???Age:88 Y???Sex:Male Gabino e:07/19/2024 Address:[address] [place], [place] [id number] Subjective: * Chief Complaints: * ???1. FASTING [...] Time - 07/19/2024 08:00 AM) ?LAB: Comprehensive [place]. Panel Fast (Collection Date & Time - [...] Time - 07/19/2024 08:00 AM) ?LAB: Comprehensive [place]. Panel Fast (Collection Date & Time - [...] Time - 07/19/2024 08:00 AM) ?LAB: Comprehensive [place]. Panel Fast (Collection Date & Time - [...] Time - 07/19/2024 08:00 AM) ?LAB: Comprehensive [place]. Panel Fast (Collection Date & Time - [...] Time - 07/19/2024 08:00 AM) ?LAB: Comprehensive [place]. Panel Fast (Collection Date & Time - 07/19/2024 08:00 AM) ?LAB: IRON PROFILE (Collection Date & Time - 07/19/2024 08:00 AM) ?LAB: Lipid Panel (Collection Date & Time - 07/19/2024 08:00 AM) ?LAB: PSA,Total (Free>4and<10) (Collection Date & Time - 07/19/2024 08:00 AM) * Procedure Codes:?14163 VENIP UNCT, ROUTINE* * * The named appointment provid er may or may not be the originator of this progress note, and it is not deemed complete until electronically signed by the appointment provider. Sign off status: Pending * Provider:?Gregory Trimble MD Date:?0 07/19/2024 Generated for Stef patel/Ariane/Nicolasitting on:?08/29/2024 03:08 PM EST
--- OUTSIDE RECORDS SUMMARY | 2024-08-29 15:08 | XMS_ITS ---
Author Organization Gregory Trimble MD Address [address] [place] [phone] Care Team Providers Care Sales Leader Name Role Phone Gregory Trimble Primary Care [...] kg/m2 07/26/2024 weight is down 7 pounds [facility] 11-1-24 Encounters Encounter Location Date Provider Diagnosis Gregory Trimble MD [address] [place] [address] Drive [address] [place], [place] [phone] 07/26/2024 Gregory Trimble Poor balance R26.89 ; [...] Notes Assessment Notes Poor balance going to al Lung nodule had repeat ct in sep t and small new nodule Bilateral carotid artery disease followe d by dr goode not bad enough for surgery Pure hypercholesterolemia stable, will c ontinue current regiment Persistent atrial fibrillation stable, w ill continue current regiment Next Appt Details Follow Up: 6 Months, Reason: Provider Name:Gregory brown, 01/19/2025 07:30:00 AM, [address] [place] [address], [address], [phone], Provider Name:Gregory brown, 01/26/2025 10:15:00 AM, [address] [place] [address], [address], [phone], Provider Name:Gregory brown, 07/21/2025 07:45:00 AM, [address] [place] [address], [address], [phone], Provider Name:Gregory brown, 07/28/2025 11:00:00 AM, [address] [place] [address], [address], [phone], Progress Notes * Duke FELTONDOB:1935 (88 yo M)Acc No.[id number]:07/26/2024 Patient:?Duke FELTON Provider:?Gregory Trimble MD :1935???Age:88 Y???Sex:Male Gabino e:07/26/2024 Address:[address] [place], [place] [phone] Subjective: * Chief Complaints: * ???COMP EXAM [...] retired. Pets: dog. Travel outside of the [place]: no. * Medications:?TakingTadalafil 5 MG Tablet [...] 253 - ug/dL ???Lab:Lipid Panel (Order Da te 07/19/2024) (Collection Date & [...] > or = 4.0 - ng/mL ???Lab:Comprehensive [place]. P sharan Fast (Order Date - 07/19/2024) [...] mg/dL ?Urine Blood Negative Negative - ?Specific [place] - Urine 1.015 1.005-1.025 - ?Urine Protein [...] Trimble MD Date:?0 07/26/2024 Generated for Stef patel/Ariane/Sahra on:?08/29/2024 03:08 PM EST History and Physical Notes * [...]
--- OUTSIDE RECORDS SUMMARY | 2024-08-29 15:08 | XMS_ITS | Clinical Summary ---
Author Organization [facility] Address [address] [place] [address] Care Team Providers Care Facility Rehab Director Name Role Phone Gregory Trimble MD Primary Care Provider [phone] Medications Medication Sig Dispensed Refills Start Date [...] age to complete this topic Care Teams Facility Rehab Director Relationship Specialty Start Date End Date Gregory Trimble MD [address] [place] [address] Drive [address] [place] [phone] PCP - General Internal Medicine 03/29/19
--- OUTSIDE RECORDS SUMMARY | 2024-08-29 15:08 | XMS_ITS ---
Author Organization Gregory Trimble MD Address [address] [place] [phone] Care Team Providers Care Icer Machine Name Role Phone Gregory Trimble Primary Care Provider Results Component Value Reference Range Notes Blood Urea Nitrogen Reviewed date:08/26/2024 04:28:14 PM Interpretation: Performing Lab:[facility], [address] [place] [phone] Notes/Report: Blood Urea Nitrogen 48 9-16 mg/dL Creatinine Reviewed date:08/26/2024 04:25:50 PM Interpretation: Performing Lab:[facility], [address] [place] [phone] Notes/Report: Creatinine 1.12 0.5-1.4 mg/dL Estimated Glomerular Filt Rate > 60 Chronic Kidney Disease: Estimated GFR < 60 mL/min/1.73m2 Severe Kidney Disease: Estimated GFR < 15 mL/min/1.73m2 REASON FOR VISIT bun creatine Encounters Encounter Location Date Provider Diagnosis Gregory Trimble MD [address] [place] [address] [place] [phone] 08/26/2024 Gregory Trimble Elevated BUN R79.9 and Poor balance R26.89 Assessments Encounter Date Diagnosis (ICD Code) Assessment Notes Treatment Notes Treatment Clinical Notes Section Notes 08/26/2024 Elevated BUN (ICD-10 - R79.9) 08/26/2024 Poor balance (ICD-10 - R26.89) Plan Of Treatment Next Appt Details Provider Name:Gregory brown, 01/19/2025 07:30:00 AM, [address] [place] [address], [address], [phone], Provider Name:Gregory brown, 01/26/2025 10:15:00 AM, [address] [place] [address], [address], [phone], Provider Name:Gregory brown, 07/21/2025 07:45:00 AM, [address] [place] [address], [address], [phone], Provider Name:Gregory brown, 07/28/2025 11:00:00 AM, [address] [place] [address], [address], [phone], Progress Notes * Duke FELTONDOB:1935 (88 yo M)Acc No.[id number]:08/26/2024 Progress Note Patient:?Duke FELTON Provider:?Gregory Trimble MD :1935???Age:88 Y???Sex:Male Gabino e:08/26/2024 Address:[address] [place], [place] [phone] Subjective: * Chief Complaints: * ???1. Bun creatine. * Medical History:? Objective: * Vitals:? Assessment: * Assessment: 1.?Elevated BUN - R79.9 (Laura geni)???2.?Poor balance - R26.89??? Plan: * Treatment: * Procedure Codes:?59005 VENIP UNCT, ROUTINE* * * The named appointment provid er may or may not be the originator of this progress note, and it is not deemed complete until electronically signed by the appointment provider. Sign off status: Pending * Provider:?Gregory Trimble MD Date:?0 08/26/2024 Generated for Stef patel/Ariane/Nicolasitting on:?08/29/2024 03:08 PM EST
--- OUTSIDE RECORDS SUMMARY | 2024-08-29 15:08 | XMS_ITS | Clinical Summary ---
Author Organization [facility] Address [address] [place] [address] Care Team Providers Care Pilot Supervisor Name Role Phone Gregory Trimble MD Primary [...] age to complete this topic Care Teams Pilot Supervisor Relationship Specialty Start Date End Date Gregory Trimble MD PCP - General Internal Medicine 03/29/19
--- OUTSIDE RECORDS SUMMARY | 2024-08-29 15:09 | XMS_ITS | Data Portability ---
Author Organization [place] [facility], Allergy Address [address] [place] [phone] Care Team Providers Care Water Filter Cleaner Name Role Phone RUFINOALTAGRACIA MARTIN Referring Provider Assessment Encounter Date Assessment Date Assessment LastModified by Organization Details LastModified Time 01/08/2024 01/08/2024 Recommendations: Follow up with referring provider. [email or web address] Not available 01/08/2024 11:37:42 01/08/2024 01/08/2024 88 [...] and Address Organization Details Recorded Time Dysphonia 63709392 Active 2016 Hoarsenes s; Note: Date Diagnosed : 07/04/2016 3:31 PM (R49.0) Not Available [facility], [facility] 4 03:07:02 Posterior rhinorrhe a 92637314 Active 2015 Postnasal drip; Note: Date Diagnosed : 06/05/2016 3:42 PM (R09.82) Not Available [facility], [facility] 4 03:07:03 Abnormal auditory perceptio n 41883139 Active 2019 Other abnormal auditory perceptio ns, left ear; Note: Date Diagnosed : 12/21/2019 5:08 PM (H93.292) Not Available [facility] 4 03:07:03 Sensorine ural hearing loss of bilateral ears 746139281 Active 2019 Sensorine ural hearing loss, bilateral ; Note: Date Diagnosed : 12/21/2019 3:28 PM (H90.3) Not Available [facility], [facility] 4 03:07:01 Impacted cerumen of bilateral ears 48015274882 23622 Active 2015 Impacted cerumen, bilateral ; Note: Date Diagnosed : 06/05/2016 3:36 PM (H61.23) Not Available [facility], [facility] 4 03:07:02 Bilateral tinnitus 19988261051 02 Active 2022 Tinnitus, bilateral ; Note: Date Diagnosed : 05/04/2023 11:35 AM (H93.13) Not Available [facility], [facility] 4 03:07:01 Chronic obstructi ve pulmonary disease 79608186 Active 2018 Chronic obstructi ve pulmonary disease, unspecifi ed; Note: Date Diagnosed : 01/12/2019 1:46 PM (J44.9) Not Available [facility], [facility] 4 03:07:03 Candidal otitis externa 82713337 Active 2016 Candidal otitis externa; Note: Date Diagnosed : 12/31/2016 1:29 PM (B37.84) Not Available [facility], [facility] 4 03:07:01 Mild intermitt ent asthma 492916402 Active 2016 Mild intermitt ent asthma, uncomplic ated; Note: Date Diagnosed : 07/04/2016 3:34 PM (J45.20) Not Available [facility], [facility] 4 03:07:02 Pharyngea l dysphagia 17975814251 105 Active 2020 Dysphagia , pharyngea l phase; Note: Date Diagnosed : 01/23/2021 1:01 PM (R13.13) Not Available [facility], [facility] 4 03:07:02 Dizziness and giddiness 235252930 Active 2022 Dizziness and giddiness ; Note: Date Diagnosed : 05/04/2023 11:35 AM (R42) Not Available [facility], [facility] 4 03:07:02 Problem Notes None recorded. Procedures Surgical History Date Name Laterality Status Provider Name and Address Organization Details Recorded Time Cerumen removal without microscope bilat completed LOREE FIERRO PA-C [address] [facility],[address], [address], [facility] - [facility] 03/08/2024 13:33:34 4 Air & Speech Audio with Tymps (90246, 27745 & 64886) completed Lucius ÁLVAREZ [address] [facility],[address], [address], [facility] - [facility] 01/08/2024 11:38:32 4 Cerumen removal without microscope bilat completed CALLUM SIMON PA-C [address] [facility],[address], [address], [facility] 01/08/2024 12:08:35 Imaging Results Imaging Date Name [...] mg tablet 2019 active Medicati on ID: [id number] D uration Value: 90 Brand Name: furosemi [...] mg tablet 2019 active Medicati on ID: [id number] D uration Value: 90 Brand Name: atorvast atin Sen d Method: E-Prescr ibed Sub s Allowed: subs OK Speci al Instruct ion: TK 1 T PO QD Medic ationGen ericName : atorvast atin Not Available Not Available Not Available Lotrisone 1 %-0.05 % topical cream 12/11 completed Medicati on ID: [id number] P rescrimusa d By Name: PAYAM Corrales nd Name: Lotrison e Send Method: E-Prescr ibed Sub s Allowed: subs OK Speci al Instruct ion: apply to external ear tid X 2 weeks Me dication GenericN shanta: Lotrison e Not Available Not Available Not Available clotrimaz ole-betam ethasone 1 %-0.05 % lotion 12/11 completed Medicati on ID: [id number] R lesly: () Brand Name: Lotrison e [...] mg tablet 12/11 completed Medicati on ID: [id number] D uration Value: 30 Reason: () Brand Name: clopidog rel Send Method: E-Prescr ibed Sub s Allowed: subs OK Speci al Instruct ion: TK 1 T PO D Medica tionGene ricName: clopidog rel Not Available Not Available Not Available amlodipin e 5 mg tablet 01/07 completed Medicati on ID: [id number] D uration Value: 90 Brand Name: amlodipi ne Send Method: E-Prescr ibed Sub s Allowed: subs OK Speci al Instruct ion: TK 1 TS PO ONCE DAILY FOR 90 DAYS Med icationG enericNa me: amlodipi ne Medic ation ID: [id number] D uration Value: 90 Brand Name: amlodipi ne Send Method: E-Prescr ibed Sub s Allowed: subs OK Speci al Instruct ion: TK 1 TS PO ONCE DAILY FOR 90 DAYS Med icationG enericNa me: amlodipi ne Not Available Not Available Not Available tamsulosi n 0.4 mg capsule 2019 active Medicati on ID: [id number] D uration Value: 30 Brand Name: tamsulos in Send Method: E-Prescr ibed Sub s Allowed: subs OK Speci al Instruct ion: TK 1 C PO QD Medic ationGen ericName : tamsulos in Not Available Not Available Not Available amlodipin e 10 mg tablet 01/07 completed Medicati on ID: [id number] B rand Name: amlodipi ne Send Method: E-Prescr ibed Sub s Allowed: subs OK Medic ationGen ericName : amlodipi ne Medic ation ID: [id number] B rand Name: amlodipi ne Send Method: E-Prescr ibed Sub s Allowed: subs OK Medic ationGen ericName : amlodipi ne Not Available Not Available Not Available metronida zole 0.75 % topical cream APPLY TOPICALL Y TO FACE TWICE DAILY FOR ROSACEA active Not Available Not Available No t Available furosemid e 20 mg tablet 12/11 completed Medicati on ID: [id number] D uration Value: 30 Reason: () Brand Name: furosemi de Send Method: E-Prescr ibed Sub s Allowed: subs OK Medic ationGen ericName : furosemi de Not Available Not Available Not Available metoprolo l succinate ER 25 mg tablet,ex tended release 24 hr 12/11 completed Medicati on ID: [id number] D uration Value: 30 Reason: () Brand [...] nasal spray 2022 active Medicati on ID: [id number] D uration Value: 30 Brand Name: ipratrop ium bromide Send Method: E-Prescr ibed Sub s Allowed: subs OK Speci al Instruct ion: 2 sprays in each nostril 1-3 times a day Medi cationGe nericNam e: ipratrop ium bromide Not Available Not Available Not Available finasteri de 5 mg tablet 2019 active Medicati on ID: [id number] D uration Value: 90 Brand Name: finaster velia Send Method: E-Prescr ibed Sub s Allowed: subs OK Speci al Instruct ion: TK 1 T PO QD Medic ationGen ericName : finaster velia Not Available Not Available Not Available gentamici n 0.1 % topical ointment 01/07 completed Medicati on ID: [id number] D uration Value: 7 Brand Name: gentamic in Send Method: E-Prescr ibed Sub s Allowed: subs OK Speci al Instruct ion: APPLY TOPICALL Y AA ONCE DAILY Me dication GenericN shanta: gentamic in Medic ation ID: [id number] D uration Value: 7 Brand Name: gentamic in Send Method: E-Prescr ibed Sub s Allowed: subs OK Speci al Instruct ion: APPLY TOPICALL Y AA ONCE DAILY Me dication GenericN shanta: gentamic in Not Available Not Available Not Available Ventolin HFA 90 mcg/actua tion aerosol inhaler 2019 active Medicati on ID: [id number] D uration Value: 16 Brand Name: Ventolin [...] mg tablet 12/11 completed Medicati on ID: [id number] D uration Value: 90 Reason: () Brand Name: valsarta n-hydroc hlorothi azide Se nd Method: E-Prescr ibed Sub s Allowed: subs OK Medic ationGen ericName : valsarta n-hydroc hlorothi azide Not Available Not Available Not Available Xarelto 20 mg tablet 2019 active Medicati on ID: [id number] D uration Value: 30 Brand Name: Xarelto Send Method: E-Prescr ibed Sub s Allowed: subs OK Speci al Instruct ion: TK 1 T PO D WF Medic ationGen ericName : Xarelto Not Available Not Available Not Available Myrbetriq 50 mg tablet,ex tended release 01/07 completed Medicati on ID: [id number] D uration Value: 30 Brand Name: Myrbetri q Send Method: E-Prescr ibed Sub s Allowed: subs OK Medic ationGen ericName : Myrbetri q Medica tion ID: [id number] D uration Value: 30 Brand Name: Myrbetri q Send Method: E-Prescr ibed Sub s Allowed: subs OK Medic ationGen ericName : Myrbetri q Not Available Not Available Not Available Eliquis 5 mg tablet 12/11 completed Medicati on ID: [id number] D uration Value: 90 Reason: () Brand Name: Eliquis Send Method: E-Prescr ibed Sub s Allowed: subs OK Medic ationGen ericName : Eliquis Not Available Not Available Not Available Anoro Ellipta 62.5 mcg-25 mcg/actua tion powder for inhalatio n 01/07 completed Medicati on ID: [id number] D uration Value: 30 Brand Name: Anoro Ellipta Send Method: E-Prescr ibed Sub s Allowed: subs OK Speci al Instruct ion: INHALE 1 PUFF PO ONCE DAILY FOR 30 DAYS Med icationG enericNa me: Anoro Ellipta Medicati on ID: [id number] D uration Value: 30 Brand Name: Anoro Ellipta Send Method: E-Prescr ibed Sub s Allowed: subs OK Speci al Instruct ion: INHALE 1 PUFF PO ONCE DAILY FOR 30 DAYS Med icationG enericNa me: Anoro Ellipta Not Available Not Available Not Available Stiolto Respimat 2.5 mcg-2.5 mcg/actua tion solution for inhalatio n 2015 active Medicati on ID: [id number] B rand Name: Stiolto Respimat Send Method: E-Prescr ibed Sub s Allowed: subs OK Medic ationGen ericName : Stiolto Respimat Not Available Not Available Not Available Breo Ellipta 200 mcg-25 mcg/dose powder for inhalatio n 12/11 completed Medicati on ID: [id number] D uration Value: 30 Reason: () Brand [...] Updated DateTime 01/08/2024 185.42 cm 19.8 kg/m2 71667.86 g Junie Chavez [place] [facility] 01/08/2024 11:12:39 Social History None recorded. Functional Status None recorded. Mental Status None recorded. Family History Nothing Reported. Medical History No medical history recorded. Past Encounters Encounter ID Performer Location Encounter Start Date Encounter Closed Date Diagnosis/Indication Diagnosis SNOMED-CT Code Diagnosis ICD10 Code Diagnosis Note [id number] BONNIE MACHADO MD [facility] on [address] [place] [address] 01/08/2024 11:03:34 01/08/2024 13:06:31 Bilateral tinnitus 6732415010 102 H93.13 Impacted c erumen of bilateral ears 0144386147 168030 H61.23 Sensorineu ral hearing loss of bilateral ears 101856130 H90.3 [id number] Lucius ÁLVAREZ [facility] on [address] [place] [address] 01/08/2024 11:37:24 01/08/2024 13:05:33 Sensorineural hearing loss of bilateral ears 645420945 H90.3 Audiologic al evaluation results:Ri ght ear:{{Norm [...] Cou ld not maintain a hermetic seal}} [id number] BONNIE MACHADO MD [facility] [address] [address] 03/08/2024 13:08:02 03/08/2024 13:34:46 Impacted cerumen of bilateral ears 0768200959 471099 H61.23 Sensorineu ral hearing loss of bilateral ears 126397680 H90.3 Health Concerns Section Related Observation LastModified by Organization Detai ls LastModified Time None Recorded Concern Status LastModified by Organization Details LastModified Time None Recorded Advance Directives Directive None Recorded Payers Encounter Date Sequence Insurance Name Policy Number Policy Starks Covered Member ID Starks Member ID Guarantor Name 01/08/2024 2 [facility] (MEDICARE SUPPLEMENT) Duke Felton [id number] Duke Felton Jr 01/08/2024 1 MEDICARE [place]: [facility] Duke Felton Jr [id number] Duke Felton Jr 01/08/2024 2 [facility] (MEDICARE SUPPLEMENT) Duke Felton [id number] Duke Felton Jr 01/08/2024 1 [place]ARE [place] [facility] Duke Felton Jr [id number] Duke Felton Jr 03/08/2024 2 [facility] (MEDICARE SUPPLEMENT) Duke Felton [id number] Duke Felton Jr 03/08/2024 1 [place]IC[place] [facility] Duke Felton Jr [id number] Duke Felton Jr Notes Date Note [...] some pollen allergy. BONNIE MACHADO MD [address], [address], [facility] - [facility] 01/08/2024 12:42:47 01/08/2024 text/html Audiological Evaluation HPIReported bypatient.Hearing loss perceived:both ears: no differences noted between ears Lucius ÁLVAREZ [address] [facility],[place] [address], [place], [address], [facility] 01/08/2024 11:47:53 03/08/2024 text/html 88-year-old male with sensorineural hearing loss presents for cerumen removal. He is a candidate for hearing aids but has not been interested in obtaining them yet. Continues to do fairly well without them. BONNIE MACHADO MD [address] [place] [address], [place], [address], [place] [facility] 03/09/2024 08:43:49
== END 2024-08-29 13:53 | disposition home or self-care (01) ==
PROVIDERS: PCP Internal Medicine; Visit Provider Internal Medicine Cardiovascular Disease
DX: I50.9 Heart failure, unspecified (principal); I48.20 Chronic atrial fibrillation, unspecified; Z95.0 Presence of cardiac pacemaker; I25.10 Atherosclerotic heart disease of native coronary artery without angina pectoris
CPT/HCPCS: 93279; 99214; G2211

== ENCOUNTER → 2024-08-29 12:55 | Outpatient (BNVA) | payer MEDICARE, OTHER, SELFPAY | PROVIDERS: PCP Internal Medicine; Visit Provider Internal Medicine Cardiovascular Disease | DX: I11.0 Hypertensive heart disease with heart failure (principal); I50.30 Unspecified diastolic (congestive) heart failure; I25.10 Atherosclerotic heart disease of native coronary artery without angina pectoris; I48.20 Chronic atrial fibrillation, unspecified; Z87.891 Personal history of nicotine dependence; Z95.1 Presence of aortocoronary bypass graft; Z45.010 Encounter for checking and testing of cardiac pacemaker pulse generator [battery] | CPT/HCPCS: 99212 ==

== ENCOUNTER 2024-09-13 11:50 | Inpatient (IN) | payer MEDICARE, OTHER, SELFPAY ==
[2024-09-13] VITALS (10 sets, daily range): BP systolic 134–196; BP diastolic 52–82; PULSE 50–80; RESP 16–22; TEMP 36.5–37.1; O2SAT 93–100; BMI 20.8
--- NOTE | ~2024-09-13 | XR_ITS ---
EXAMINATION: XR CHEST 1 VIEW HISTORY: dyspnea COMPARISON: Comparison is made with the prior examination dated 01/13/2022. FINDINGS: Two AP portable views of the chest performed at 12:23 AM are submitted. An implantable cardiac monitoring device is again noted in the left anterior chest wall. The lungs remain hyperinflated. There are increased interstitial markings without significant change. There are no new focal airspace opacities. There is no pleural effusion, pneumothorax, or pulmonary vascular congestion. The heart is normal in size. There is degenerative disc disease of the spine. XR/XR chest 1V IMPRESSION: COPD. Increased interstitial markings without change. Electronically signed by: James Ibarra MD 09/13/2024 12:32 PM EDT
--- NOTE | 2024-09-13 11:53 | ECG_ITS ---
Test Reason : DYSPNEA Blood Pressure : */* mmHG Vent. Rate : 66 BPM Atrial Rate : 277 BPM P-R Int : * ms QRS Dur : 156 ms QT Int : 476 ms P-R-T Axes : * 131 -3 degrees QTcB Int : 499 ms Ventricular-paced rhythm with occasional Premature ventricular complexes Abnormal ECG When compared with ECG of 13-Jan-2022 10:36, Premature ventricular complexes are now Present Vent. rate has increased by 16 bpm Referred By: Valentina Nails Electronically Signed By: Juan Miguel Goldman
--- NOTE | 2024-09-13 12:16 | ED_ITS ---
HPI - Weakness General Chief complaint: Dyspnea Stated complaint: CHEST TIGHTNESS WEAKNESS Time Seen by Provider: 09/13/24 11:52 Source: patient, EMS and old records reviewed Mode of arrival: EMS Limitations: no limitations History of Present Illness ED Provider: CORIE AREVALO Narrative: 88 yo male with PMH of CAD, PPM, afib on xarelto, BPH, anxiety, Raynaud ds, last ECHO 06/21 - EF 50-55% with hypokinetic segments in basal inferior/inferiolateral, mild AV stenosis who presents today with c/o profound weakness x 2 weeks. No fevers, cough, sputum, he notes he went to a function in town and since then has not felt well. He has no n/v/d. He states he has no chest pain. He denies feeling short of breath now even with a RR of 27. EMS states they found him with O2 sat in 70s but pleth was poor and he was en route with CPAP, duoneb and 125mg IV steroids. He tells me he is compliant with all of his medications. He notes he really is so weak and when he walks 10 feet he has to stop rest and catch his breath - this is new for him. He denies any chest pain prior to this. No weight loss, night sweats. On arrival to his ED room removed from CPAP by me 100% on 2L NC with good pleth and probe device placed R ear Complaint: generalized weakness Onset (ago): week(s) (2) Duration: progressively worsening Location: generalized Migration: none Severity: severe Relieving factors: rest Exacerbating factors: exertion Associated symptoms: shortness of breath Related Data Home Medications ?Medication ?Instructions ?Recorded ?Confirmed albuterol sulfate 90 mcg/actuation 2 puff inhalation Q6H PRN Wheezing 06/15/20 09/13/24 aerosol inhaler atorvastatin 20 mg tablet 20 mg PO BEDTIME 06/15/20 09/13/24 ferrous sulfate 325 mg (65 mg 325 mg PO DAILY@1200 11/20/21 09/13/24 iron) tablet fluticasone propionate 50 1 spray intranasal DAILY PRN 11/20/21 09/13/24 mcg/actuation nasal Allergy Symptoms spray,suspension torsemide 20 mg tablet 60 mg PO DAILY 08/29/24 09/13/24 amlodipine 5 mg tablet 5 mg PO DAILY 09/13/24 09/13/24 ascorbic acid (vitamin C) 500 mg 500 mg PO DAILY@1200 09/13/24 09/13/24 tablet bethanechol chloride 50 mg tablet 50 mg PO BID 09/13/24 09/13/24 potassium chloride 10 mEq 10 meq PO DAILY 09/13/24 09/13/24 capsule,extended release rivaroxaban 15 mg tablet (Xarelto) 15 mg PO DAILY@1700 09/13/24 09/13/24 tadalafil 5 mg tablet 5 mg PO DAILY@1200 foot ulcer 09/13/24 09/13/24 tamsulosin 0.4 mg capsule 0.4 mg PO BEDTIME 09/13/24 09/13/24 tiotropium 2.5 mcg-olodaterol 2.5 2 puff inhalation DAILY 09/13/24 09/13/24 mcg/actuation mist for inhalation (Stiolto Respimat) Previous Rx's ?Medication ?Instructions ?Recorded finasteride 5 mg tablet 5 mg PO DAILY #90 tabs 08/05/21 sacubitril 24 mg-valsartan 26 mg 1 tab PO BID #60 tabs 11/28/21 tablet (Entresto) Allergies Allergy/AdvReac Type Severity Reaction Status Date / Time No Known Allergies Allergy Verified 09/13/24 12:28 [No Known Allergies*] Review of Systems 2 Review of Systems: Constitutional : No Fever, No Chills, pos fatigue ENT/Mouth : No sore throat, No Rhinorrhea, No Swallowing Difficulty Eyes: No Eye Pain, No Swelling, No Redness Cardiovascular : No Chest Pain, positive SOB, No Orthopnea, no Edema Respiratory : No Cough, No Sputum, No Wheezing, positive dyspnea Gastrointestinal : No Nausea, No Vomiting, No Diarrhea, No abdominal Pain, No Hematochezia, No Melena Genitourinary : No Dysuria, No Urinary Frequency, No Hematuria Musculoskeletal : No joint pain, No Myalgias Skin : No Skin Lesions, No rash Neuro : pos Weakness, No Numbness, No Dizziness, No Headache Psych : No Anxiety/Panic, No Depression Heme/Lymph: No Bruising, No Lymphadenopathy Endocrine : No Polyuria, No Polydipsia All other systems reviewed and are negative PMFSH Past Medical History Attestation statement: The following information was validated with the patient. Source: old records reviewed Medical History COPD (chronic obstructive pulmonary disease) Raynaud disease Anxiety Respiratory failure COPD (chronic obstructive pulmonary disease) Cardiac pacemaker in situ Bradycardia Malignant neoplasm of lateral wall of urinary bladder COPD (chronic obstructive pulmonary disease) Hyperlipidemia HTN (hypertension) Pulmonary hypertension (HFpEF) heart failure with preserved ejection fraction CAD (coronary artery disease) Chronic atrial fibrillation Surgical History History of placement of leadless cardiac pacemaker Stented coronary artery H/O transurethral resection of prostate History of prostate surgery History of back surgery History of appendectomy Family History Family History Father Lung cancer Cancer Mother No problems noted. Social History Social History Household Members: Spouse Housing: House Are you a primary child care centre director to a significant other at home: No Do you presently have visiting nurse or other home services: Yes (Visiting nurse [employer], PT [facility], Wound center on Thu) Alcohol intake: former Patient Tobacco Use Status: Former Tobacco user Smoked in Last 30 Days: No Second Hand Smoke Exposure: No Advance Directives: Yes Advance Directives on File: Yes Advance Directives Date on File: 09/17/21 service: Yes Current occupational status: retired Physical Exam 2 Vital Signs: Vital Signs: Last Vital Signs Temp 98.1 F 09/13/24 19:59 Pulse 70 09/13/24 19:59 Resp 16 09/13/24 19:59 BP 151/63 H 09/13/24 19:59 Pulse Ox 93 09/13/24 19:59 O2 Del Method Nasal Cannula 09/13/24 19:59 O2 Flow Rate 2 09/13/24 19:59 Oxygen Flow Rate 2 09/13/24 12:27 BMI result Body Mass Index 20.8 Appearance: Alert. Oriented X3. Mild acute distress. Eyes: Pupils equal, round and reactive to light. ENT: Pharynx normal. Lips dusky on arrival but improving with NC and warm blankets Neck: Normal inspection. Neck supple. CVS: Normal heart rate and rhythm. Pulses normal. Respiratory: Mild respiratory distress - tacypnea 28 Breath sounds no wheezes, diminished, rales both bases Abdomen: Soft and nontender. Skin: Skin warm and dry. finger tips dusky and cold to touch - improving with warm blankets decreased pulses in both feet on exam feet are warm to touch Extremities: No lower extremity edema. No calf ttp Neuro: Oriented X 3. No motor deficit. No sensory deficit. CN2-12 intact Course Course Course Narrative: lactic acid due to albuterol therapy and not infection or severe sepsis Medications Administered Generic Name Dose Route Start Last Admin Trade Name Freq PRN Reason Stop Dose Admin Albuterol/Ipratropium 3 ml 09/13/24 16:00 09/13/24 19:31 Albuterol/Iprat 2.5/0.5mg 3 Ml Ampul.Neb INHALE 3 ml RQ4H WHILE AWAKE MAVERICK Administration Doxycycline Monohydrate 100 mg 09/13/24 17:00 09/13/24 16:28 Doxycycline Monohydrate 100 Mg Capsule PO 100 mg Q12H MAVERICK Administration Methylprednisolone Sodium Succinate 40 mg 09/13/24 16:00 09/13/24 16:28 Methylprednisolone Sod Succ 40 Mg/Ml Vial IVPUSH 40 mg Q12H MAVERICK Administration Discontinued Medications Generic Name Dose Route Start Last Admin Trade Name Freq PRN Reason Stop Dose Admin Ceftriaxone Sodium 1 gm 09/13/24 12:01 09/13/24 12:40 Ceftriaxone Sodium 1 Gm Vial IVPUSH 09/13/24 12:02 1 gm ONCE ONE Administration Sodium Chloride 250 mls @ 250 mls/hr 09/13/24 12:40 09/13/24 15:41 Ns IV 09/13/24 13:39 Infused .Q1H ONE Infusion Medical Decision Making Medical Decision Making [facility] Narrative: 88 yo male with PMH of CAD, PPM, afib on xarelto, BPH, anxiety, Raynaud ds, last ECHO 06/21 - EF 50-55% with hypokinetic segments in basal inferior/inferiolateral, mild AV stenosis now here with signs of dusky lips and fingers but does have hx of raynauds and he is not hypoxic and responding to warming measures. He has no CP/SOB, denies fevers or sputum at this time could be CHF, COPD, pneumonia, cardiomyopathy, pericardial effusion. I have ordered labs, EKG, cultures, empiric dose of ceftriaxone pending work up. Differential Diagnosis Differential Diagnoses: The differential diagnosis associated with the presentation includes CHF, COPD, valvular pathology, effusion, cardiomyopathy, CAD, pneumonia, UTI Admission/Observation Consideration of admission/observation: Escalation of care including admission/observation considered Lab Data MDM Lab Attestation statement: I reviewed the patient's lab results. 09/13/24 12:15 09/13/24 12:15 Labs: Lab Results 09/13/24 09/13/24 09/13/24 Range/Units 12:15 12:45 14:33 WBC 7.6 (4.8-10.8) X10*3/uL RBC 3.67 L (4.60-5.80) X10*6/uL Hgb 11.4 L (14.0-18.0) g/dl Hct 34.9 L (42.0-52.0) % MCV 95.1 (80.0-98.0) fL MCH 31.1 (27.0-33.0) pg MCHC 32.7 (31.0-36.0) g/dl RDW 14.1 (11.0-16.0) % Plt Count 243 (160-400) X10*3/uL MPV 9.8 (9.4-12.4) fL Immature Gran % (Auto) 0.5 H (0.0-0.4) % Neut % (Auto) 86.1 H (45-73) % Lymph % (Auto) 6.2 L (20-40) % [place] % (Auto) 6.8 (2-11) % Eos % (Auto) 0.1 (0-4) % Baso % (Auto) 0.3 (0-2) % Lymph # (Auto) 0.5 L (1.2-4.9) X10*3/uL [place] # (Auto) 0.5 (0.1-1.2) X10*3/uL Eos # (Auto) 0.0 (0.0-0.4) X10*3/uL Baso # (Auto) 0.0 (0.0-0.2) X10*3/uL Abs Immat Gran (auto) 0.04 H (0.00-0.03) X10*3/uL Absolute Neuts (auto) 6.6 (2.0-8.3) x10*3/uL Absolute Nucleated RBC 0.000 (0.0-0.012) X10*3/uL Nucleated RBC % (auto) 0.0 (0.0-0.2) /100WBC VBG pH 7.39 (7.32-7.43) VBG pCO2 39 mmHg VBG pO2 36 mmHg VBG HCO3 24 (22-26) mmol/L VBG O2 Saturation 51.0 % VBG Base Excess -0.7 mmol/L Sodium 142 (135-145) mmol/L Potassium 3.9 (3.3-5.1) mmol/L Chloride 107 (96-108) mmol/L Carbon Dioxide 23 (22-29) mmol/L Anion Gap 16 (12-20) BUN 63 H (9-16) mg/dL Creatinine 1.63 H (0.5-1.4) mg/dL Estim Creat Clear Calc 31.0 Estimated GFR 40 Random Glucose 144 H (60-115) mg/dL Lactic Acid 3.3 H* (0.5-2.0) mmol/L Lactic Acid F/U @ 2Hr 1.7 (0.5-2.0) mmol/L Calcium 9.4 (8.4-10.2) mg/dL Magnesium 2.5 (1.6-2.6) mg/dL Total Bilirubin 1.7 H (0.0-1.0) mg/dL Direct Bilirubin 0.6 H (0.0-0.5) mg/dL AST 38 H (5-37) U/L ALT 16 (0-40) U/L Alkaline Phosphatase 91 (39-117) U/L Troponin I High Sens 91.8 H 79.7 H (<3.5-35.0) ng/L C-Reactive Protein 2.58 H (< or = 0.50) mg/dL B-Natriuretic Peptide 1085 H (<100) pg/mL Total Protein 8.4 H (6.5-8.0) g/dL Albumin 4.3 (3.5-5.0) g/dL Procalcitonin 0.07 ng/mL Urine Color Urine Appearance Urine pH (5.0-9.0) Ur Specific [place] (1.005-1.025) Urine Protein (Neg-Trace) mg/dL Urine Glucose (UA) (Negative) mg/dL Urine Ketones (Negative) mg/dL Urine Blood (Negative) Urine Nitrite (Negative) Ur Leukocyte Esterase (Negative) Influenza Type A (PCR) NEGATIVE (Negative) Influenza Type B (PCR) NEGATIVE (Negative) RSV RNA Qual (PCR) NEGATIVE (Negative) SARS-CoV-2 RNA (RT-PCR) NEGATIVE (Negative) 09/13/24 Range/Units 16:04 WBC (4.8-10.8) X10*3/uL RBC (4.60-5.80) X10*6/uL Hgb (14.0-18.0) g/dl Hct (42.0-52.0) % MCV (80.0-98.0) fL MCH (27.0-33.0) pg MCHC (31.0-36.0) g/dl RDW (11.0-16.0) % Plt Count (160-400) X10*3/uL MPV (9.4-12.4) fL Immature Gran % (Auto) (0.0-0.4) % Neut % (Auto) (45-73) % Lymph % (Auto) (20-40) % [place] % (Auto) (2-11) % Eos % (Auto) (0-4) % Baso % (Auto) (0-2) % Lymph # (Auto) (1.2-4.9) X10*3/uL [place] # (Auto) (0.1-1.2) X10*3/uL Eos # (Auto) (0.0-0.4) X10*3/uL Baso # (Auto) (0.0-0.2) X10*3/uL Abs Immat Gran (auto) (0.00-0.03) X10*3/uL Absolute Neuts (auto) (2.0-8.3) x10*3/uL Absolute Nucleated RBC (0.0-0.012) X10*3/uL Nucleated RBC % (auto) (0.0-0.2) /100WBC VBG pH (7.32-7.43) VBG pCO2 mmHg VBG pO2 mmHg VBG HCO3 (22-26) mmol/L VBG O2 Saturation % VBG Base Excess mmol/L Sodium (135-145) mmol/L Potassium (3.3-5.1) mmol/L Chloride (96-108) mmol/L Carbon Dioxide (22-29) mmol/L Anion Gap (12-20) BUN (9-16) mg/dL Creatinine (0.5-1.4) mg/dL Estim Creat Clear Calc Estimated GFR Random Glucose (60-115) mg/dL Lactic Acid (0.5-2.0) mmol/L Lactic Acid F/U @ 2Hr (0.5-2.0) mmol/L Calcium (8.4-10.2) mg/dL Magnesium (1.6-2.6) mg/dL Total Bilirubin (0.0-1.0) mg/dL Direct Bilirubin (0.0-0.5) mg/dL AST (5-37) U/L ALT (0-40) U/L Alkaline Phosphatase (39-117) U/L Troponin I High Sens (<3.5-35.0) ng/L C-Reactive Protein (< or = 0.50) mg/dL B-Natriuretic Peptide (<100) pg/mL Total Protein (6.5-8.0) g/dL Albumin (3.5-5.0) g/dL Procalcitonin ng/mL Urine Color Yellow Urine Appearance Clear Urine pH 5.5 (5.0-9.0) Ur Specific [place] 1.015 (1.005-1.025) Urine Protein Negative (Neg-Trace) mg/dL Urine Glucose (UA) Negative (Negative) mg/dL Urine Ketones Trace (Negative) mg/dL Urine Blood Negative (Negative) Urine Nitrite Negative (Negative) Ur Leukocyte Esterase Negative (Negative) Influenza Type A (PCR) (Negative) Influenza Type B (PCR) (Negative) RSV RNA Qual (PCR) (Negative) SARS-CoV-2 RNA (RT-PCR) (Negative) Independent Interpretation I performed an independent interpretation of an: EKG and Plain X-Ray (no mass/pneumonia) Interpretation: Rate: 66 Rhythm: V paced Transfer: right Normal P waves. Normal WALLACE. wide QRS complex. ST T wave : nonspecific ST T wave changes lateral leads, no ISMAEL qTC: 499 prior studies: paced The study has been interpreted contemporaneously by me. . Radiology Impression Discussion of test interpretation with radiology: I have reviewed the radiologist's reading. Procedures Procedure Narrative Procedure Narrative: limited bedside ECHO apical parasternal subxiphoid hypokinetic areas inferior wall EF appears reduced at this time 40% suspected aortic valve poor opening on exam Discharge Plan Discharge Clinical Impression: CATRACHITA (acute kidney injury), BURRLEL (dyspnea on exertion), Acute exacerbation of chronic obstructive pulmonary disease Patient Disposition: Admitted As Inpatient
[2024-09-13 12:21] LABS: MANUAL DIFF FLAG NO
[2024-09-13 12:23] LABS: Basophils Percent Auto 0.3 % (0-2); Eosinophils Percent Auto 0.1 % (0-4); Hematocrit 34.9 % (42.0-52.0); Hemoglobin 11.4 g/dl (14.0-18.0); Imm Gran Abs Auto 0.04 X10*3/uL (0.00-0.03); Imm Gran Pct Auto 0.5 % (0.0-0.4); Lymphocytes Absolute Auto 0.5 X10*3/uL (1.2-4.9); Lymphocytes Percent Auto 6.2 % (20-40); Mean Corpuscular HGB Conc 32.7 g/dl (31.0-36.0); Mean Corpuscular Hemoglobin 31.1 pg (27.0-33.0); Mean Corpuscular Volume 95.1 fL (80.0-98.0); Mean Platelet Volume 9.8 fL (9.4-12.4); Monocytes Absolute Auto 0.5 X10*3/uL (0.1-1.2); Monocytes Percent Auto 6.8 % (2-11); Neutrophils Absolute Auto 6.6 x10*3/uL (2.0-8.3); Neutrophils Percent Auto 86.1 % (45-73); Platelet Count 243 X10*3/uL (160-400); Red Blood Count 3.67 X10*6/uL (4.60-5.80); Red Cell Distribution Width 14.1 % (11.0-16.0); White Blood Count 7.6 X10*3/uL (4.8-10.8)
[2024-09-13 12:40] LABS: Lactic Acid 3.3 mmol/L (0.5-2.0)
[2024-09-13] MEDS: cefTRIAXone sodium 1 GM VIAL IVPUSH (12:40)
[2024-09-13 12:42] LABS: B Type Natriuretic Peptide 1085 pg/mL (<100); Troponin-I High Sensitivity 91.8 ng/L (<3.5-35.0)
[2024-09-13 12:44] LABS: Alanine Aminotransferase 16 U/L (0-40); Albumin Level 4.3 g/dL (3.5-5.0); Alkaline Phosphatase 91 U/L (39-117); Anion Gap 16 (12-20); Aspartate Amino Transferase 38 U/L (5-37); Bilirubin Direct 0.6 mg/dL (0.0-0.5); Bilirubin Total 1.7 mg/dL (0.0-1.0); Blood Urea Nitrogen 63 mg/dL (9-16); C Reactive Protein 2.58 mg/dL (< or = 0.50); Calcium 9.4 mg/dL (8.4-10.2); Carbon Dioxide 23 mmol/L (22-29); Chloride 107 mmol/L (96-108); Estimated Glomerular Filt Rate 40; Glucose Random 144 mg/dL (60-115); Magnesium 2.5 mg/dL (1.6-2.6); Potassium 3.9 mmol/L (3.3-5.1); Sodium 142 mmol/L (135-145); Total Protein 8.4 g/dL (6.5-8.0)
[2024-09-13 12:50] LABS: VBG Base Excess -0.7 mmol/L; VBG HCO3 24 mmol/L (22-26); VBG pCO2 39 mmHg; VBG pH 7.39 (7.32-7.43); VBG pO2 36 mmHg
[2024-09-13 12:51] LABS: Venous Blood Gas Refer to POC result
[2024-09-13 12:55] LABS: Procalcitonin 0.07 ng/mL
[2024-09-13] MEDS: 0.9 % Sodium Chloride 250 ML IV (12:56)
[2024-09-13 13:05] LABS: Influenza A PCR NEGATIVE (Negative); Influenza B PCR NEGATIVE (Negative); Resp Syncy Virus RNA Qual PCR NEGATIVE (Negative); SARS COV2 PCR INHOUSE NEGATIVE (Negative)
[2024-09-13 14:19] LABS: Reflex Lactate? Lactic Acid Added
[2024-09-13 14:57] LABS: ~Lactic Acid-LAB USE ONLY 1.7 mmol/L (0.5-2.0)
[2024-09-13 15:04] LABS: Troponin-I High Sensitivity 79.7 ng/L (<3.5-35.0)
[2024-09-13 16:11] LABS: Appearance Urine Clear; Color Urine Yellow; Glucose Urine UA Negative (Negative); Leukocyte Esterase Urine Negative (Negative); Nitrite Urine Negative (Negative); PH 5.5 (5.0-9.0); Specific Gravity - Urine 1.015 (1.005-1.025); Urine Blood Negative (Negative); Urine Ketones Trace mg/dL (Negative); Urine Protein Negative (Neg-Trace)
--- NOTE | 2024-09-13 16:21 | P.HPHOSP_ITS ---
History of Present Illness Date of Service: 09/13/24 Chief Complaint: dyspnea 86yo M with HTN, HLD, CAD, HFpEF, chronic AF s/p PPM and on rivaroxaban, hx bladder CA, pHTN, COPD not on home O2 but on nighttime biPAP presenting with 1 wk of worsening dyspnea. No fever, chills, cough, or sputum production. Dyspnea is worse with exertion but not provoked by laying flat. No chest pain and no leg edema. Feels weak and cannot walk due to dyspnea. In ED, he was noted to have CATRACHITA with SCr of 1.6 [baseline of around 1.1]. BNP 1085 but chronically elevated. ED bedside echo suggested lower EF of 30-40% compared to 50-55% 06/21/24. He was given steroids and Duoneb by EMS and in the ED was given 250 mL of IV normal saline and a dose of ceftriaxone. CXR did not show any pneumonia. Procalcitonin 0.07. Flu/RSV/Covid-19 negative. VBG with pH 7.39 and pCO2 39. Review of Systems 2 Review of Systems: Yes all other systems are reviewed and are negative [facility] Medical History COPD (chronic obstructive pulmonary disease) Raynaud disease Anxiety Respiratory failure COPD (chronic obstructive pulmonary disease) Cardiac pacemaker in situ Bradycardia Malignant neoplasm of lateral wall of urinary bladder COPD (chronic obstructive pulmonary disease) Hyperlipidemia HTN (hypertension) Pulmonary hypertension (HFpEF) heart failure with preserved ejection fraction CAD (coronary artery disease) Chronic atrial fibrillation Family History Father Lung cancer Cancer Mother No problems noted. Surgical History History of placement of leadless cardiac pacemaker Stented coronary artery H/O transurethral resection of prostate History of prostate surgery History of back surgery History of appendectomy Social History Household Members: Spouse Housing: House Are you a primary healthcare account manager to a significant other at home: No Do you presently have visiting nurse or other home services: Yes (Visiting nurse [employer], PT [facility], Wound center on Fri) Alcohol intake: former Patient Tobacco Use Status: Former Tobacco user Smoked in Last 30 Days: No Second Hand Smoke Exposure: No Advance Directives: Yes Advance Directives on File: Yes Advance Directives Date on File: 09/17/21 service: Yes Current occupational status: retired Meds Allergies Allergy/AdvReac Type Severity Reaction Status Date / Time No Known Allergies Allergy Verified 09/13/24 12:28 [No Known Allergies*] Active Medications: Current Medications Acetaminophen (Acetaminophen 325 Mg Tablet) 650 mg PO Q6H PRN PRN Reason: Pain, Mild 1-3,fever,headache Albuterol Sulfate (Albuterol Sulfate (0.083%) 2.5 Mg/3 Ml Vial.Neb) 2.5 mg INHALE Q2H PRN PRN Reason: Shortness of Breath/Wheezing Albuterol/Ipratropium (Albuterol/Iprat 2.5/0.5mg 3 Ml Ampul.Neb) 3 ml INHALE RQ4H WHILE AWAKE MAVERICK Calcium Carbonate (Calcium Carbonate 750 Mg Tab.Chew) 750 mg PO Q4H PRN PRN Reason: Heartburn Doxycycline Monohydrate (Doxycycline Monohydrate 100 Mg Capsule) 100 mg PO Q12H MAVERICK Magnesium Hydroxide (Milk Of Magnesia 30 Ml Oral.Susp) 30 ml PO DAILY PRN PRN Reason: Constipation Melatonin (Melatonin 3 Mg Tablet) 6 mg PO BEDTIME PRN PRN Reason: Insomnia Methylprednisolone Sodium Succinate (Methylprednisolone Sod Succ 40 Mg/Ml Vial) 40 mg IVPUSH Q12H MAVERICK Ondansetron HCl (Ondansetron Hcl 4 Mg/2 Ml Vial) 4 mg IVPUSH Q8H PRN PRN Reason: Nausea and Vomiting Sodium Chloride (0.9 % Sodium Chloride Flush 3 Ml Syringe) 3 ml IVFLUSH QSHIFT [facility] Home Medications ?Medication ?Instructions ?Recorded ?Confirmed ?Last Taken ?Type albuterol sulfate 90 mcg/actuation 2 puff inhalation Q6H PRN Wheezing 06/15/20 08/29/24 Unknown History aerosol inhaler atorvastatin 20 mg tablet 20 mg PO DAILY 06/15/20 08/29/24 Unknown History rivaroxaban 20 mg tablet (Xarelto) 20 mg PO DAILY 07/24/20 08/29/24 11/20/21 History ferrous sulfate 325 mg (65 mg 325 mg PO DAILY 11/20/21 08/29/24 Unknown History iron) tablet fluticasone propionate 50 1 spray intranasal DAILY 11/20/21 08/29/24 Unknown History mcg/actuation nasal spray,suspension torsemide 20 mg tablet 60 mg PO BID 08/29/24 08/29/24 Unknown History Physical Exam 2 Vital Signs and Narrative: Vital Signs: Last Vital Signs Temp 98.7 F 09/13/24 15:15 Pulse 50 09/13/24 15:15 Resp 16 09/13/24 15:15 BP 148/65 H 09/13/24 15:15 Pulse Ox 96 09/13/24 15:15 O2 Del Method Nasal Cannula 09/13/24 15:15 O2 Flow Rate 2 09/13/24 15:15 Oxygen Flow Rate 2 09/13/24 12:27 BMI result Body Mass Index 20.8 Gen: in no acute distress HEENT: sclera anicteric, moist mucus membranes Neck: supple Lungs: diminished, faint exp wheezes Heart: irregular, bradycardic, no murmurs Abd: soft, non-tender, non-distended Ext: no edema Skin: warm/well-perfused Neuro: alert and oriented x3, no focal findings Psych: appropriate affect Results Labs 09/13/24 12:15 09/13/24 12:15 Labs: Laboratory Results - last 24 hr 09/13/24 09/13/24 09/13/24 12:15 12:45 14:33 MCV 95.1 MCH 31.1 MCHC 32.7 RDW 14.1 Plt Count 243 MPV 9.8 Immature Gran % (Auto) 0.5 H Neut % (Auto) 86.1 H Lymph % (Auto) 6.2 L [place] % (Auto) 6.8 Eos % (Auto) 0.1 Baso % (Auto) 0.3 Lymph # (Auto) 0.5 L [place] # (Auto) 0.5 Eos # (Auto) 0.0 Baso # (Auto) 0.0 Abs Immat Gran (auto) 0.04 H Absolute Neuts (auto) 6.6 Absolute Nucleated RBC 0.000 Nucleated RBC % (auto) 0.0 VBG pH 7.39 VBG pCO2 39 VBG pO2 36 VBG HCO3 24 VBG O2 Saturation 51.0 VBG Base Excess -0.7 Anion Gap 16 Estim Creat Clear Calc 31.0 Estimated GFR 40 Random Glucose 144 H Lactic Acid 3.3 H* Lactic Acid F/U @ 2Hr 1.7 Calcium 9.4 Magnesium 2.5 Total Bilirubin 1.7 H Direct Bilirubin 0.6 H AST 38 H ALT 16 Alkaline Phosphatase 91 C-Reactive Protein 2.58 H B-Natriuretic Peptide 1085 H Total Protein 8.4 H Albumin 4.3 Procalcitonin 0.07 Urine Color Urine Appearance Urine pH Ur Specific [place] Urine Protein Urine Glucose (UA) Urine Ketones Urine Blood Urine Nitrite Ur Leukocyte Esterase Influenza Type A (PCR) NEGATIVE Influenza Type B (PCR) NEGATIVE RSV RNA Qual (PCR) NEGATIVE SARS-CoV-2 RNA (RT-PCR) NEGATIVE 09/13/24 16:04 MCV MCH MCHC RDW Plt Count MPV Immature Gran % (Auto) Neut % (Auto) Lymph % (Auto) [place] % (Auto) Eos % (Auto) Baso % (Auto) Lymph # (Auto) [place] # (Auto) Eos # (Auto) Baso # (Auto) Abs Immat Gran (auto) Absolute Neuts (auto) Absolute Nucleated RBC Nucleated RBC % (auto) VBG pH VBG pCO2 VBG pO2 VBG HCO3 VBG O2 Saturation VBG Base Excess Anion Gap Estim Creat Clear Calc Estimated GFR Random Glucose Lactic Acid Lactic Acid F/U @ 2Hr Calcium Magnesium Total Bilirubin Direct Bilirubin AST ALT Alkaline Phosphatase C-Reactive Protein B-Natriuretic Peptide Total Protein Albumin Procalcitonin Urine Color Yellow Urine Appearance Clear Urine pH 5.5 Ur Specific [place] 1.015 Urine Protein Negative Urine Glucose (UA) Negative Urine Ketones Trace Urine Blood Negative Urine Nitrite Negative Ur Leukocyte Esterase Negative Influenza Type A (PCR) Influenza Type B (PCR) RSV RNA Qual (PCR) SARS-CoV-2 RNA (RT-PCR) Imaging Radiologist's Impressions: Impressions Chest X-Ray 09/13/24 12:01 IMPRESSION: COPD. Increased interstitial markings without change. Electronically signed by: James Ibarra MD 09/13/2024 12:32 PM EDT Assessment and Plan (1) COPD (chronic obstructive pulmonary disease): Status: Acute Plan 86yo M with HTN, HLD, CAD, HFpEF, chronic AF s/p PPM and on rivaroxaban, hx bladder CA, pHTN, COPD not on home O2 but on nighttime biPAP presenting with 1 wk of worsening dyspnea. Admitting for COPD exacerbation as well as CATRACHITA COPD exacerbation - admit to telemetry, give IV methylprednisolone + PO doxycycline + standing/prn nebs; on Stiolto controller inhaler at home CATRACHITA - suspect prerenal and will hold torsemide and recheck BMP in AM; he got 250 mL IV NS in the ED chronic HFpEF - recheck TTE given ED findings; continue Entresto HLD - continue atorvastatin chronic AF - continue rivaroxaban - PPM interrogated 08/30/24 with adequate function prostatism - continue bethanechol, finasteride, tamsulosin VTE prophylaxis - continue rivaroxaban dispo - TBD code status - DNR/DNI I anticipate that the patient will stay at least 2 midnights as an inpatient in the hospital due to the above reasons. It is neither reasonable nor safe to care for them in a less acute setting. Quality Stroke Does the patient have a stroke diagnosis?: No VTE Prior VTE?: No VTE Risk Level:: Medical - moderate - high VTE Device Contraindication: N/A - Device Ordered VTE Drug Contraindication: N/A - Med Ordered
[2024-09-13] MEDS: Albuterol/Iprat 2.5/0.5MG 3 ML AMPUL.NEB INHALE ×2 (16:22→19:31)
[2024-09-13] MEDS: Doxycycline Monohydrate 100 MG CAPSULE PO (16:28)
[2024-09-13] MEDS: methylPREDNISolone Sod Succ 40 MG/ML VIAL IVPUSH (16:28)
--- NOTE | 2024-09-13 18:09 | PHA.MEDREC ---
Addendum entered by Blanca Isbell RPh 09/13/24 18:33: [facility] reviewed Original Note: Pharmacy Consult ? Medication Reconciliation Pharmacy has completed the medication reconciliation. Spoke to patient to confirm med list. Patient had a list of medications with him. [facility] Util[facility] to confirm med list.
[2024-09-13] MEDS: Bethanechol Chloride 25 MG TABLET 50 MG PO (21:49)
[2024-09-13] MEDS: Sacubitril/Valsartan 24/26 1 TAB TABLET PO (21:50)
[2024-09-13] MEDS: Atorvastatin Calcium 20 MG TABLET PO (21:50)
[2024-09-13] MEDS: Tamsulosin HCL 0.4 MG CAPSULE PO (21:50)
[2024-09-13] MEDS: 0.9 % Sodium Chloride Flush 3 ML SYRINGE IVFLUSH (22:01)
[2024-09-14] VITALS (12 sets, daily range): BP systolic 101–165; BP diastolic 44–74; PULSE 50–77; RESP 14–18; TEMP 36.3–36.5; O2SAT 2–99
[2024-09-14] MEDS: methylPREDNISolone Sod Succ 40 MG/ML VIAL IVPUSH ×2 (05:04→16:03)
[2024-09-14] MEDS: Doxycycline Monohydrate 100 MG CAPSULE PO ×2 (05:05→16:03)
[2024-09-14 05:58] LABS: Hematocrit 29.6 % (42.0-52.0); Mean Corpuscular HGB Conc 33.8 g/dl (31.0-36.0); Mean Corpuscular Hemoglobin 31.5 pg (27.0-33.0); Mean Corpuscular Volume 93.4 fL (80.0-98.0); Platelet Count 218 X10*3/uL (160-400); Red Blood Count 3.17 X10*6/uL (4.60-5.80); Red Cell Distribution Width 13.9 % (11.0-16.0); White Blood Count 4.3 X10*3/uL (4.8-10.8)
[2024-09-14 06:19] LABS: B Type Natriuretic Peptide 1659 pg/mL (<100)
[2024-09-14 06:20] LABS: Anion Gap 13 (12-20); Blood Urea Nitrogen 52 mg/dL (9-16); Calcium 8.7 mg/dL (8.4-10.2); Carbon Dioxide 22 mmol/L (22-29); Chloride 108 mmol/L (96-108); Creatinine Clr Calc Pharmacy 43.6; Estimated Glomerular Filt Rate 59; Glucose Random 161 mg/dL (60-115); Potassium 3.7 mmol/L (3.3-5.1); Sodium 139 mmol/L (135-145)
--- NOTE | 2024-09-14 07:00 | CA_ITS ---
Transthoracic Echocardiogram Patient (Last, First, Middle): Duke Felton W Gender: Male Date of : 1935 Age: 88 Procedure Date: 09/14/2024 Procedure Type: Transthoracic Echocardiogram [place] [facility] [place] Height: 185.42 cm Weight: 68.49 kg BSA: 1.91 m2 Heart Rate: 50 bpm BP: 148 / 65 mmHg Export Packer: Referring MD: Dodie Blanco MD Symptoms: CHF change in EF Study Quality: Adequate ECG Rhythm: Bradycardia Conclusions: - Normal left ventricular cavity size. There is mildly increased left ventricular wall thickness. The left ventricular systolic function is moderately decreased. The visually estimated ejection fraction is between 30-35%. - E/E prime ratio is between 8 and 15 consistent with indeterminate filling pressures. - Moderately increased right ventricular cavity size. There is mild to moderately decreased right ventricular systolic function. - The left atrium is moderately dilated. The right atrium is severely dilated. - There is mild aortic valve stenosis. There is mild aortic valve regurgitation. - Significantly elevated right atrial pressure. Severe pulmonary hypertension is present. Findings Left Ventricle Normal left ventricular cavity size. There is mildly increased left ventricular wall thickness. The left ventricular systolic function is moderately decreased. The visually estimated ejection fraction is between 30 35%. Abnormal diastolic function is noted. Spectral Doppler is indicative of a restrictive filling pattern. E/E prime ratio is between 8 and 15 consistent with indeterminate filling pressures. Right Ventricle Moderately increased right ventricular cavity size. There is mild to moderately decreased right ventricular systolic function. Atria The left atrium is moderately dilated. The right atrium is severely dilated. Aortic Valve There is moderate calcification of the aortic valve. There is mild aortic valve stenosis. There is mild aortic valve regurgitation. Mitral Valve The posterior mitral leaflet is immobile. There is mild mitral valve regurgitation. There is no mitral valve stenosis. Pulmonic Valve The pulmonic valve was not well visualized. Tricuspid Valve There is moderate to severe tricuspid valve regurgitation. The right ventricular systolic pressure is 72 mmHg. Significantly elevated right atrial pressure. Severe pulmonary hypertension is present. Venous The inferior vena cava is dilated and collapses less than 50% with inspiration. Pericardium/Pleural There is no evidence of pericardial effusion. Prior Study Comparison Moderate LV, mild to moderate RV dysfunction. Severe pulm HTN. Measurements 2D Linear Measurements IVSd: 1.22 0.6-0.9/0.6-1.0 cm LVIDd: 4.97 3.9-5.3/4.2-5.9 cm LVIDd Index: 2.60 2.4-3.2/2.2-3.1 cm/m2 LVIDs: 3.90 2.0-3.6 cm LVPWd: 1.20 0.7-1.1 cm LA Diam: 4.70 2.7-3.8/3.0-4.0 cm LAIDs Index: 2.46 1.5-2.3 cm/m2 LV Mass: 292.05 67-162/88-224 g LV Mass Index: 152.91 43-95/49-115 g/m2 LVOT Diam: 2.30 3.0+(-)1.3 cm 2D Systolic Function EF 4C: 48.30 >55% EF 2C: 44.70 >55% EF BiP: 45.50 >55% Mitral Valve MV VTI: 0.35 MV Pk Alvaro: 1.25 MV Mn Alvaro: 0.51 MV Pk Grad: 6.00 MV Mn Grad: 1.00 MV Pk E: 1.32 MV Decel Time: 174.00 E'Lateral: 18.30 E'Medial: 5.00 E/E' Med: 26.40 E/E' Lat: 7.20 PHT: 51.00 MVA PHT: 4.31 MVA Continuity: 2.15 Decel Hendricks: 7.57 Aortic Valve AoV Pk Alvaro: 2.24 AoV Mn Alvaro: 1.43 AoV VTI: 0.54 AoV Pk Grad: 20.00 Aov Mn Grad: 10.00 CARLOS Cont.VTI: 1.40 AI Pk Alvaro: 4.19 AI Hendricks: 2.01 LVOT LVOT Pk Alvaro: 0.70 LVOT Mn Alvaro: 0.46 LVOT VTI: 0.18 LVOT Pk Grad: 2.00 LVOT Mn Grad: 1.00 LVOT Diam: 2.30 LVOT Area: 4.15 Diastolic Function MV Pk E: 1.32 E'Medial: 5.00 E/E' Med: 26.40 E' Laterial: 18.30 E/E' Lat: 7.20 Right Ventricle TAPSE (mm): 21.40 TVS' Alvaro: 9.79 Tricuspid Valve TR Pk Alvaro: 3.85 TR Pk Grad: 59.00 RVSP: 72.00 Great Vessels Aorta Sinus of Valsalva: 3.40 2.0-3.5 cm Ao Asc: 3.60 2.1-3.4 cm Pulmonary Valve PV Pk Alvaro: 0.75 Peak PV Grad: 2.00 Updated in Other Vendor System with Status of Final Juan Miguel Goldman MD electronically signed on 09/15/2024 11:03:15 PM with status of Final
[2024-09-14] MEDS: amLODIPine Besylate 5 MG TABLET PO (09:03)
[2024-09-14] MEDS: Bethanechol Chloride 25 MG TABLET 50 MG PO ×2 (09:03→19:50)
[2024-09-14] MEDS: Torsemide 20 MG TABLET 60 MG PO (09:03)
[2024-09-14] MEDS: Finasteride 5 MG TABLET PO (09:03)
[2024-09-14] MEDS: Sacubitril/Valsartan 24/26 1 TAB TABLET PO ×2 (09:03→19:49)
[2024-09-14] MEDS: 0.9 % Sodium Chloride Flush 3 ML SYRINGE IVFLUSH ×3 (09:04→19:50)
--- NOTE | 2024-09-14 09:18 | MHC.CM.PN ---
Addendum entered by Junie Del Valle 09/14/24 09:24: Patient uses BIPAP at home. Original Note: CM met with Patient at bedside and addressed IMM with him, providing Patient with the original and a copy has been placed on the chart. Patient lives in a house with his /HCP/Mirna, who Patient states is not feeling well herself. Patient may benefit from a PT Eval to assist with disposition; Patient was very pleased with [facility] in the past. CM has initiated and will follow for dc planning. PCP is Dr. Gregory Trimble and Son will transport to home at time of dc.
[2024-09-14] MEDS: Albuterol/Iprat 2.5/0.5MG 3 ML AMPUL.NEB INHALE ×2 (11:32→19:26)
[2024-09-14] MEDS: Ascorbic Acid 500 MG TABLET PO (12:26)
[2024-09-14] MEDS: Ferrous Sulfate 324 MG TABLET.DR PO (12:26)
--- NOTE | 2024-09-14 12:26 | P.PNIM_ITS ---
Subjective Subjective Date of Service: 09/14/24 Interval History: breathing minimally improved no chest pain no edema no cough c/o generalized weakness, cold intolerance Review of Systems Review of Systems: Yes all other systems are reviewed and are negative Physical Exam 2 Vital Signs: Vital Signs: Last Vital Signs Temp 97.7 F 09/14/24 11:36 Pulse 56 09/14/24 11:36 Resp 16 09/14/24 11:36 BP 123/60 09/14/24 11:36 Pulse Ox 93 09/14/24 11:36 O2 Del Method Nasal Cannula 09/14/24 11:36 O2 Flow Rate 2 09/14/24 11:36 Oxygen Flow Rate 2 09/13/24 12:27 BMI result Body Mass Index 20.8 Gen: in no acute distress HEENT: sclera anicteric, moist mucus membranes Neck: supple Lungs: diminished Heart: irregular, bradycardic, no murmurs Abd: soft, non-tender, non-distended Ext: no edema Skin: warm/well-perfused Neuro: alert and oriented x3, no focal findings Psych: appropriate affect Objective Data Active Medications Acetaminophen (Acetaminophen 325 Mg Tablet) 650 mg PO Q6H PRN PRN Reason: Pain, Mild 1-3,fever,headache Albuterol Sulfate (Albuterol Sulfate (0.083%) 2.5 Mg/3 Ml Vial.Neb) 2.5 mg INHALE Q2H PRN PRN Reason: Shortness of Breath/Wheezing Albuterol Sulfate (Albuterol Sulfate 90 Mcg 8 Gm Inhaler) 2 puff INHALE Q6H PRN PRN Reason: Wheezing Albuterol/Ipratropium (Albuterol/Iprat 2.5/0.5mg 3 Ml Ampul.Neb) 3 ml INHALE RQ4H WHILE AWAKE [facility] Last Admin: 09/14/24 11:32 Dose: 3 ml Documented By: GODFREY Amlodipine Besylate (Amlodipine Besylate 5 Mg Tablet) 5 mg PO DAILY [facility]; Protocol Last Admin: 09/14/24 09:03 Dose: 5 mg Documented By: AYANA Ascorbic Acid (Ascorbic Acid 500 Mg Tablet) 500 mg PO DAILY@1200 [place] Atorvastatin Calcium (Atorvastatin Calcium 20 Mg Tablet) 20 mg PO BEDTIME [facility] Last Admin: 09/13/24 21:50 Dose: 20 mg Documented By: HO.N-CONNO Bethanechol Chloride (Bethanechol Chloride 25 Mg Tablet) 50 mg PO BID [facility] Last Admin: 09/14/24 09:03 Dose: 50 mg Documented By: AYANA Calcium Carbonate (Calcium Carbonate 750 Mg Tab.Chew) 750 mg PO Q4H PRN PRN Reason: Heartburn Doxycycline Monohydrate (Doxycycline Monohydrate 100 Mg Capsule) 100 mg PO Q12H [facility] Last Admin: 09/14/24 05:05 Dose: 100 mg Documented By: NABOR Ferrous Sulfate (Ferrous Sulfate 324 Mg Tablet.Dr) 324 mg PO DAILY@1200 [facility] Finasteride (Finasteride 5 Mg Tablet) 5 mg PO DAILY [facility] Last Admin: 09/14/24 09:03 Dose: 5 mg Documented By: AYANA Fluticasone Propionate (Fluticasone Propionate Nasal 16 Gm [place]) 1 spray NOSTRIL-B DAILY PRN PRN Reason: Allergy Symptoms Magnesium Hydroxide (Milk Of Magnesia 30 Ml Oral.Susp) 30 ml PO DAILY PRN PRN Reason: Constipation Melatonin (Melatonin 3 Mg Tablet) 6 mg PO BEDTIME PRN PRN Reason: Insomnia Methylprednisolone Sodium Succinate (Methylprednisolone Sod Succ 40 Mg/Ml Vial) 40 mg IVPUSH Q12H [facility] Last Admin: 09/14/24 05:04 Dose: 40 mg Documented By: NABOR Ondansetron HCl (Ondansetron Hcl 4 Mg/2 Ml Vial) 4 mg IVPUSH Q8H PRN PRN Reason: Nausea and Vomiting Rivaroxaban (Rivaroxaban 15 Mg Tablet) 15 mg PO DAILY@1700 [facility] Sacubitril/Valsartan (Sacubitril/Valsartan 1 Tab Tablet) 1 tab PO BID [facility]; Protocol Last Admin: 09/14/24 09:03 Dose: 1 tab Documented By: AYANA Sodium Chloride (0.9 % Sodium Chloride Flush 3 Ml Syringe) 3 ml IVFLUSH QSHIFT [facility] Last Admin: 09/14/24 09:04 Dose: 3 ml Documented By: AYANA Tamsulosin HCl (Tamsulosin Hcl 0.4 Mg Capsule) 0.4 mg PO BEDTIME [facility] Last Admin: 09/13/24 21:50 Dose: 0.4 mg Documented By: HO.N-CONNO Torsemide (Torsemide 20 Mg Tablet) 60 mg PO DAILY [facility]; Protocol Last Admin: 09/14/24 09:03 Dose: 60 mg Documented By: AYANA Labs 09/14/24 05:17 09/14/24 05:17 Labs: Laboratory Results - last 24 hr 09/13/24 09/13/24 09/13/24 12:15 12:45 14:33 MCV MCH MCHC RDW Plt Count MPV Absolute Nucleated RBC Nucleated RBC % (auto) VBG pH 7.39 VBG pCO2 39 VBG pO2 36 VBG HCO3 24 VBG O2 Saturation 51.0 VBG Base Excess -0.7 Anion Gap 16 Estim Creat Clear Calc 31.0 Estimated GFR 40 Random Glucose 144 H Lactic Acid 3.3 H* Lactic Acid F/U @ 2Hr 1.7 Calcium 9.4 Magnesium 2.5 Total Bilirubin 1.7 H Direct Bilirubin 0.6 H AST 38 H ALT 16 Alkaline Phosphatase 91 C-Reactive Protein 2.58 H B-Natriuretic Peptide 1085 H Total Protein 8.4 H Albumin 4.3 Procalcitonin 0.07 Urine Color Urine Appearance Urine pH Ur Specific Barnes Urine Protein Urine Glucose (UA) Urine Ketones Urine Blood Urine Nitrite Ur Leukocyte Esterase Influenza Type A (PCR) NEGATIVE Influenza Type B (PCR) NEGATIVE RSV RNA Qual (PCR) NEGATIVE SARS-CoV-2 RNA (RT-PCR) NEGATIVE 09/13/24 09/14/24 16:04 05:17 MCV 93.4 MCH 31.5 MCHC 33.8 RDW 13.9 Plt Count 218 MPV 10.0 Absolute Nucleated RBC 0.000 Nucleated RBC % (auto) 0.0 VBG pH VBG pCO2 VBG pO2 VBG HCO3 VBG O2 Saturation VBG Base Excess Anion Gap 13 Estim Creat Clear Calc 43.6 Estimated GFR 59 Random Glucose 161 H Lactic Acid Lactic Acid F/U @ 2Hr Calcium 8.7 D Magnesium Total Bilirubin Direct Bilirubin AST ALT Alkaline Phosphatase C-Reactive Protein B-Natriuretic Peptide 1659 H Total Protein Albumin Procalcitonin Urine Color Yellow Urine Appearance Clear Urine pH 5.5 Ur Specific Barnes 1.015 Urine Protein Negative Urine Glucose (UA) Negative Urine Ketones Trace Urine Blood Negative Urine Nitrite Negative Ur Leukocyte Esterase Negative Influenza Type A (PCR) Influenza Type B (PCR) RSV RNA Qual (PCR) SARS-CoV-2 RNA (RT-PCR) Assessment and Plan (1) Acute exacerbation of chronic obstructive pulmonary disease: Status: Acute Plan d2 for 86yo M with HTN, HLD, CAD, HFpEF, chronic AF s/p PPM and on rivaroxaban, hx bladder CA, pHTN, COPD not on home O2 but on nighttime biPAP presenting with 1 wk of worsening dyspnea. Admitted for COPD exacerbation as well as CATRACHITA. COPD exacerbation - continue IV methylprednisolone + PO doxycycline + standing/prn nebs; on Stiolto controller inhaler at home CATRACHITA - suspect prerenal; improved after holding diuresis and getting 250 mL NS in the ID; resume torsemide and recheck BMP in AM chronic HFpEF - recheck TTE given ED findings; continue Entresto weakness - PT eval; check ESR, CPK, TFTs HLD - continue atorvastatin chronic AF - continue rivaroxaban - PPM interrogated 08/30/24 with adequate function prostatism - continue bethanechol, finasteride, tamsulosin VTE prophylaxis - continue rivaroxaban dispo - TBD In my clinical judgment, the patient requires continued inpatient hospitalization for the following reasons: CATRACHITA, COPD Total time managing care of this patient today: 35 minutes. Quality Stroke Does the patient have a stroke diagnosis?: No VTE Prior VTE?: No VTE Risk Level:: Medical - moderate - high VTE Device Contraindication: N/A - Device Ordered VTE Drug Contraindication: N/A - Med Ordered
[2024-09-14 13:04] LABS: TSH reflex Free T4 0.71 uIU/mL (0.32-4.0)
--- NOTE | 2024-09-14 15:29 | MHC.CM.PN ---
PT is recommending STR; CM will follow.
[2024-09-14] MEDS: Rivaroxaban 15 MG TABLET PO (16:03)
[2024-09-14] MEDS: Atorvastatin Calcium 20 MG TABLET PO (19:49)
[2024-09-14] MEDS: Tamsulosin HCL 0.4 MG CAPSULE PO (19:50)
[2024-09-15] VITALS (15 sets, daily range): BP systolic 122–148; BP diastolic 59–71; PULSE 50–100; RESP 14–20; TEMP 36–37; O2SAT 90–100
[2024-09-15] MEDS: methylPREDNISolone Sod Succ 40 MG/ML VIAL IVPUSH (03:26)
[2024-09-15] MEDS: Doxycycline Monohydrate 100 MG CAPSULE PO ×2 (05:41→16:19)
[2024-09-15] MEDS: polyethylene glycoL 3350 17 GM POWD.PACK PO (05:41)
--- NOTE | 2024-09-15 06:48 | PC.NURSE ---
Assumed care of patient at 23:00. Please see shift assessments, tasks, and MAR for full details. Bed alarm on and safety measures in place. Plan of care continues. Handoff report given to oncoming RN at 06:45.
[2024-09-15 07:42] LABS: Anion Gap 13 (12-20); Blood Urea Nitrogen 54 mg/dL (9-16); Calcium 8.5 mg/dL (8.4-10.2); Carbon Dioxide 23 mmol/L (22-29); Chloride 109 mmol/L (96-108); Creatinine Clr Calc Pharmacy 46.8; Estimated Glomerular Filt Rate > 60; Glucose Random 144 mg/dL (60-115); Potassium 4.2 mmol/L (3.3-5.1); Sodium 141 mmol/L (135-145)
[2024-09-15] MEDS: Albuterol/Iprat 2.5/0.5MG 3 ML AMPUL.NEB INHALE ×4 (07:46→20:06)
[2024-09-15 08:17] LABS: Erythrocyte Sedimentation Rate 23 MM/HR (0-15)
[2024-09-15] MEDS: Sacubitril/Valsartan 24/26 1 TAB TABLET PO ×2 (10:09→21:30)
[2024-09-15] MEDS: Finasteride 5 MG TABLET PO (10:09)
[2024-09-15] MEDS: amLODIPine Besylate 5 MG TABLET PO (10:09)
[2024-09-15] MEDS: Bethanechol Chloride 25 MG TABLET 50 MG PO ×2 (10:09→21:31)
[2024-09-15] MEDS: 0.9 % Sodium Chloride Flush 3 ML SYRINGE IVFLUSH ×3 (10:10→21:31)
[2024-09-15] MEDS: Torsemide 20 MG TABLET 60 MG PO (11:15)
[2024-09-15] MEDS: Ascorbic Acid 500 MG TABLET PO (11:19)
[2024-09-15] MEDS: Ferrous Sulfate 324 MG TABLET.DR PO (11:19)
--- NOTE | 2024-09-15 12:32 | HO.PM.IMPN ---
Subjective Subjective Date of Service: 09/15/24 Interval History: was dizzy/lightheaded yesterday orthostatics negative but BP soft feels better today breathing improving slowly no cough Review of Systems Review of Systems: Yes all other systems are reviewed and are negative Physical Exam Vital Signs: Vital Signs: Last Vital Signs Temp 96.8 F 09/15/24 11:24 Pulse 57 09/15/24 11:37 Resp 16 09/15/24 11:37 BP 145/65 H 09/15/24 11:24 Pulse Ox 100 09/15/24 11:24 O2 Del Method Nasal Cannula 09/15/24 11:24 O2 Flow Rate 2 09/15/24 11:24 Oxygen Flow Rate 2 09/13/24 12:27 BMI result Body Mass Index 20.8 Gen: in no acute distress HEENT: sclera anicteric, moist mucus membranes Neck: supple Lungs: diminished Heart: irregular, bradycardic, no murmurs Abd: soft, non-tender, non-distended Ext: no edema Skin: warm/well-perfused Neuro: alert and oriented x3, no focal findings Psych: appropriate affect Objective Data Active Medications Acetaminophen (Acetaminophen 325 Mg Tablet) 650 mg PO Q6H PRN PRN Reason: Pain, Mild 1-3,fever,headache Albuterol Sulfate (Albuterol Sulfate (0.083%) 2.5 Mg/3 Ml Vial.Neb) 2.5 mg INHALE Q2H PRN PRN Reason: Shortness of Breath/Wheezing Albuterol Sulfate (Albuterol Sulfate 90 Mcg 8 Gm Inhaler) 2 puff INHALE Q6H PRN PRN Reason: Wheezing Albuterol/Ipratropium (Albuterol/Iprat 2.5/0.5mg 3 Ml Ampul.Neb) 3 ml INHALE RQ4H WHILE AWAKE [facility] Last Admin: 09/15/24 11:37 Dose: 3 ml Documented By: RONAN Amlodipine Besylate (Amlodipine Besylate 5 Mg Tablet) 5 mg PO DAILY [facility]; Protocol Last Admin: 09/15/24 10:09 Dose: 5 mg Documented By: LUIGI Ascorbic Acid (Ascorbic Acid 500 Mg Tablet) 500 mg PO DAILY@1200 [facility] Last Admin: 09/15/24 11:19 Dose: 500 mg Documented By: LUIGI Atorvastatin Calcium (Atorvastatin Calcium 20 Mg Tablet) 20 mg PO BEDTIME [facility] Last Admin: 09/14/24 19:49 Dose: 20 mg Documented By: ES Bethanechol Chloride (Bethanechol Chloride 25 Mg Tablet) 50 mg PO BID [facility] Last Admin: 09/15/24 10:09 Dose: 50 mg Documented By: LUIGI Calcium Carbonate (Calcium Carbonate 750 Mg Tab.Chew) 750 mg PO Q4H PRN PRN Reason: Heartburn Doxycycline Monohydrate (Doxycycline Monohydrate 100 Mg Capsule) 100 mg PO Q12H [facility] Last Admin: 09/15/24 05:41 Dose: 100 mg Documented By: ILIANA Ferrous Sulfate (Ferrous Sulfate 324 Mg Tablet.Dr) 324 mg PO DAILY@1200 [facility] Last Admin: 09/15/24 11:19 Dose: 324 mg Documented By: LUIGI Finasteride (Finasteride 5 Mg Tablet) 5 mg PO DAILY [facility] Last Admin: 09/15/24 10:09 Dose: 5 mg Documented By: LUIGI Fluticasone Propionate (Fluticasone Propionate Nasal 16 Gm [place]) 1 spray NOSTRIL-B DAILY PRN PRN Reason: Allergy Symptoms Magnesium Hydroxide (Milk Of Magnesia 30 Ml Oral.Susp) 30 ml PO DAILY PRN PRN Reason: Constipation Melatonin (Melatonin 3 Mg Tablet) 6 mg PO BEDTIME PRN PRN Reason: Insomnia Methylprednisolone Sodium Succinate (Methylprednisolone Sod Succ 40 Mg/Ml Vial) 40 mg IVPUSH Q12H [facility] Last Admin: 09/15/24 03:26 Dose: 40 mg Documented By: ILIANA Ondansetron HCl (Ondansetron Hcl 4 Mg/2 Ml Vial) 4 mg IVPUSH Q8H PRN PRN Reason: Nausea and Vomiting Polyethylene Glycol (Polyethylene Glycol 3350 17 Gm Powd.Pack) 17 gm PO DAILY PRN PRN Reason: Constipation Last Admin: 09/15/24 05:41 Dose: 17 gm Documented By: ILIANA Rivaroxaban (Rivaroxaban 15 Mg Tablet) 15 mg PO DAILY@1700 [facility] Last Admin: 09/14/24 16:03 Dose: 15 mg Documented By: ES Sacubitril/Valsartan (Sacubitril/Valsartan 1 Tab Tablet) 1 tab PO BID [facility]; Protocol Last Admin: 09/15/24 10:09 Dose: 1 tab Documented By: LUIGI Sodium Chloride (0.9 % Sodium Chloride Flush 3 Ml Syringe) 3 ml IVFLUSH QSHIFT [facility] Last Admin: 09/15/24 10:10 Dose: 3 ml Documented By: LUIGI Tamsulosin HCl (Tamsulosin Hcl 0.4 Mg Capsule) 0.4 mg PO BEDTIME [facility] Last Admin: 09/14/24 19:50 Dose: 0.4 mg Documented By: ES Torsemide (Torsemide 20 Mg Tablet) 60 mg PO DAILY [facility]; Protocol Last Admin: 09/15/24 11:15 Dose: 60 mg Documented By: LUIGI Labs 09/14/24 05:17 09/15/24 07:04 Labs: Laboratory Results - last 24 hr 09/14/24 09/15/24 05:17 07:04 ESR 23 H Anion Gap 13 Estim Creat Clear Calc 46.8 Estimated GFR > 60 Random Glucose 144 H Calcium 8.5 Total Creatine Kinase 80 TSH 0.71 Microbiology Microbiology Results: Microbiology 09/13/24 12:39 Blood Culture - Preliminary Blood - Venous No growth after 24 hours. 09/13/24 12:15 Blood Culture - Preliminary Blood - Venous No growth after 24 hours. Assessment and Plan (1) Acute exacerbation of chronic obstructive pulmonary disease: Status: Acute Plan d3 for 86yo M with HTN, HLD, CAD, HFpEF, chronic AF s/p PPM and on rivaroxaban, hx bladder CA, pHTN, COPD not on home O2 but on nighttime biPAP presenting with 1 wk of worsening dyspnea. Admitted for COPD exacerbation as well as CATRACHITA. COPD exacerbation - continue IV methylprednisolone + PO doxycycline + standing/prn nebs; on Stiolto controller inhaler at home CATRACHITA, resolved; - suspect prerenal; improved after holding diuresis and getting 250 mL NS in the ID; resumed torsemide; SCr stable chronic HFpEF - recheck TTE given findings of reduced EF on bedside echo in ED; continue Entresto; continue torsemide HLD - continue atorvastatin chronic AF - continue rivaroxaban - PPM interrogated 08/30/24 with adequate function prostatism - continue bethanechol, finasteride, tamsulosin VTE prophylaxis - continue rivaroxaban dispo - PT recommends STR; pt declines, will likely go home with VNA In my clinical judgment, the patient requires continued inpatient hospitalization for the following reasons: COPD Total time managing care of this patient today: 35 minutes. Quality Stroke Does the patient have a stroke diagnosis?: No VTE Prior VTE?: No VTE Risk Level:: Medical - moderate - high VTE Device Contraindication: N/A - Device Ordered VTE Drug Contraindication: N/A - Med Ordered
[2024-09-15] MEDS: Rivaroxaban 15 MG TABLET PO (16:19)
--- NOTE | 2024-09-15 16:55 | PC.NURSE ---
Handoff report called to Med Surg floor [address]. All questions answered.
[2024-09-15] MEDS: Atorvastatin Calcium 20 MG TABLET PO (21:30)
[2024-09-15] MEDS: Tamsulosin HCL 0.4 MG CAPSULE PO (21:30)
[2024-09-16] VITALS (11 sets, daily range): BP systolic 120–160; BP diastolic 58–75; PULSE 50–103; RESP 14–20; TEMP 36.1–37.1; O2SAT 92–100
[2024-09-16] MEDS: methylPREDNISolone Sod Succ 40 MG/ML VIAL IVPUSH (04:12)
[2024-09-16] MEDS: Doxycycline Monohydrate 100 MG CAPSULE PO ×2 (05:32→16:22)
[2024-09-16] MEDS: Albuterol/Iprat 2.5/0.5MG 3 ML AMPUL.NEB INHALE ×3 (07:16→15:54)
--- NOTE | 2024-09-16 09:38 | MHC.CLN ---
NUTRITION REVIEW OF WEIGHT HX SHOWS WEIGHT WITHOUT SIGNIFICANT CHANGE X APPROX 2 YEARS. CURRENT INTAKE 75-100% MOST MEALS. SKIN WITH REDNESS TO COCCYX. DIET=REGULAR. NO ADDITIONAL NUTRITION INTERVENTIONS AT THIS TIME.
[2024-09-16] MEDS: Bethanechol Chloride 25 MG TABLET 50 MG PO (09:58)
[2024-09-16] MEDS: amLODIPine Besylate 5 MG TABLET PO (09:59)
[2024-09-16] MEDS: Torsemide 20 MG TABLET 60 MG PO (09:59)
[2024-09-16] MEDS: Sacubitril/Valsartan 24/26 1 TAB TABLET PO (10:00)
[2024-09-16] MEDS: Finasteride 5 MG TABLET PO (10:00)
[2024-09-16] MEDS: Ascorbic Acid 500 MG TABLET PO (11:50)
[2024-09-16] MEDS: Ferrous Sulfate 324 MG TABLET.DR PO (11:51)
--- NOTE | 2024-09-16 14:29 | PM.DS ---
DS: Providers Provider Date of Service: 09/16/24 Date of admission: 09/13/24 16:13 Date of discharge: 09/16/24 Primary care physician: Gregory Trimble MD DS: Diagnosis Discharge Diagnosis (1) Acute exacerbation of chronic obstructive pulmonary disease: Status: Acute DS: Summary Hospital Course Hospital Course: 86yo M with HTN, HLD, CAD, HFpEF, chronic AF s/p PPM and on rivaroxaban, hx bladder CA, pHTN, COPD not on home O2 but on nighttime biPAP presenting with 1 wk of worsening dyspnea. No fever, chills, cough, or sputum production. Dyspnea is worse with exertion but not provoked by laying flat. No chest pain and no leg edema. Feels weak and cannot walk due to dyspnea. In ED, he was noted to have CATRACHITA with SCr of 1.6 [baseline of around 1.1]. BNP 1085 but chronically elevated. ED bedside echo suggested lower EF of 30-40% compared to 50-55% 06/21/24. He was given steroids and Duoneb by EMS and in the ED was given 250 mL of IV normal saline and a dose of ceftriaxone. CXR did not show any pneumonia. Procalcitonin 0.07. Flu/RSV/Covid-19 negative. VBG with pH 7.39 and pCO2 39. Hospital Course Admitted to general medical floor switch to p.o. doxycycline and IV steroids pulse dose. Over the course of his hospitalization he continued to improve and at the time visit discharge was satting acceptable on room air. Was seen in consultation by Physical therapy who recommends PT however patient declined. On the day of discharge he is ambulatory in the hallway with a walker with PT. He will be discharged home to complete an oral course of doxycycline along with prednisone taper. Time Attestation Discharge Coordination Time (in mins): 35 Quality: Safe Use of Opioids Does Pt have an Active Cancer Diagnosis on the Problem List?: No Quality: Stroke Does the patient have a stroke diagnosis?: No Physical Exam Vital Signs: Vital Signs: Last Vital Signs Temp 97.0 F 09/16/24 12:03 Pulse 89 09/16/24 13:28 Resp 20 09/16/24 12:03 BP 160/75 H 09/16/24 13:28 Pulse Ox 95 09/16/24 13:28 O2 Del Method Room Air 09/16/24 12:03 O2 Flow Rate 2 09/15/24 11:24 Oxygen Flow Rate 2 09/13/24 12:27 BMI result Body Mass Index 20.8 Const: Other: Awake alert oriented x3 no acute distress Resp: Other: Clear to auscultation bilaterally no rales rhonchi or wheezes Cardio: Other: No S4; positive S1-S2; no S3 murmurs rubs or gallops GI: Other: Soft nontender nondistended normoactive bowel sounds Extrem: Other: No edema bilaterally DS: Data Data Completed and Pending Labs on day of discharge: Preliminary micro results at discharge 09/13/24 12:39 Blood Culture - Preliminary Blood - Venous No growth after 48 hours. 09/13/24 12:15 Blood Culture - Preliminary Blood - Venous No growth after 48 hours. Discharge Plan Discharge Anticipated Discharge Date/Time: 09/16/24 14:38 Patient Disposition: Home Health Service Discharge Diagnosis: COPD exacerbation Referrals: Gregory Trimble MD [Primary Care Provider] - 1 Week Discharge Medications: New doxycycline monohydrate 100 mg Capsule 100 mg PO Q12H Qty: 14 0RF prednisone 10 mg tablet See Rx Instructions .Route .COMPLEX Qty: 45 0RF Rx Instructions: 10 mg orally; 5 tabs p.o. daily x3 days; 4 tabs p.o. daily x3 days; 3 tabs daily x3 days; 2 tabs daily x3 days; 1 tab daily x3 days Continued finasteride 5 mg tablet 5 mg PO DAILY Qty: 90 3RF ferrous sulfate 325 mg (65 mg iron) Tablet 325 mg PO DAILY@1200 fluticasone propionate 50 mcg/actuation spray,suspension 1 spray intranasal DAILY PRN (Reason: Allergy Symptoms) Entresto 24-26 mg Tablet 1 tab PO BID Qty: 60 0RF Protocol: Hold for SBP< HOLD for SBP < : 90 amlodipine 5 mg Tablet 5 mg PO DAILY Xarelto 15 mg Tablet 15 mg PO DAILY@1700 Rx Instructions: must administer with evening meal Stiolto Respimat 2.5-2.5 mcg/actuation Mist 2 puff INHALATION DAILY potassium chloride 10 mEq capsule, extended release 10 meq PO DAILY bethanechol chloride 50 mg tablet 50 mg PO BID ascorbic acid (vitamin C) 500 mg Tablet 500 mg PO DAILY@1200 tamsulosin 0.4 mg capsule 0.4 mg PO BEDTIME tadalafil 5 mg tablet 5 mg PO DAILY@1200 albuterol sulfate 90 mcg/actuation HFA aerosol inhaler 2 puff inhalation Q6H PRN (Reason: Wheezing) atorvastatin 20 mg tablet 20 mg PO BEDTIME torsemide 20 mg tablet 60 mg PO DAILY Discharge Orders: Discharge Order (Routine); Ordered 09/16/24 Ordered By: Vinny Pfeiffer Diet: Advance to usual diet Activity on Discharge: As tolerated Stand Alone Forms: Patient Portal Discharge page Print Language: [place] Care Plan Goals: Complete course of doxycycline as ordered along with prednisone taper. Health Concerns: Continue all home medicines as taken prior to the hospital Plan of Treatment: Follow up with your PCP next available appointment Assessment: See discharge summary
--- NOTE | 2024-09-16 14:42 | P.F2F_ITS ---
Service Date Service Date: 09/16/24 Encounter Date of encounter: 09/16/24 Reasons for Services Signs and symptoms assessed: Assess respiratory status and med management Reason for mcfp: medication management and teach disease management Reason for physical therapy: home safety and mobility and gait/transfer training Homebound: Leaving the home is medically contraindicated at this time without the asist of a device and/or another person due th the listed conditions above and below. Reason homebound: unsteady gait / fall risk and unable to drive Certification: Based on the above findings, I certify that this patient is confined to the home and needs intermittent mcfp care, physical therapy and/or speech therapy, or continues to need occupational therapy. The patient is under my care, and I have initiated the establishment of the plan of care. The patient will be followed by a physician who will periodically review the plan of care. Time Spent With Patient Time: Total time managing care of this patient today ____ minutes.
--- NOTE | 2024-09-16 15:03 | MHC.CM.PN ---
PT TO [facility] HOME TODAY WITH [facility] UPDATED VIA [facility] TO TRANSPORT
== END 2024-09-16 16:50 | disposition home health service (06) | DRG 191 ==
LOC: HO.ED 13:55 → HO.EDOVER 16:46 → HO.IMC 19:12 → HO.S3 09-15 16:12
PROVIDERS: Admitting Provider Family Medicine; Emergency Provider Emergency Medicine; PCP Internal Medicine; Visit Provider Hospitalist
DX: J44.1 Chronic obstructive pulmonary disease with (acute) exacerbation (principal); I48.20 Chronic atrial fibrillation, unspecified; I50.32 Chronic diastolic (congestive) heart failure; N17.9 Acute kidney failure, unspecified; I25.10 Atherosclerotic heart disease of native coronary artery without angina pectoris; N40.0 Benign prostatic hyperplasia without lower urinary tract symptoms; I27.20 Pulmonary hypertension, unspecified; I11.0 Hypertensive heart disease with heart failure; Z20.822 Contact with and (suspected) exposure to COVID-19; Z95.0 Presence of cardiac pacemaker; Z87.891 Personal history of nicotine dependence; Z79.01 Long term (current) use of anticoagulants; Z79.899 Other long term (current) drug therapy
CPT/HCPCS: 0241U; 36415; 71045; 80048; 80076; 81003; 82550; 82803; 83605; 83735; 83880; 84145; 84443; 84484; 85025; 85027; 85652; 86140; 87040; 93005; 93306; 94640; 94660; 97110; 97116; 97162; 97530; 99285; J0696; J2919; Q9957

== ENCOUNTER → 2024-09-13 11:53 | Outpatient (BNV) | payer MEDICARE, OTHER, SELFPAY | PROVIDERS: Admitting Provider Family Medicine; Emergency Provider Emergency Medicine; PCP Internal Medicine; Visit Provider Internal Medicine Cardiovascular Disease | DX: I49.3 Ventricular premature depolarization (principal); Z95.0 Presence of cardiac pacemaker | CPT/HCPCS: 93010 ==

== ENCOUNTER → 2024-09-13 12:34 | Outpatient (BNV) | payer MEDICARE, OTHER, SELFPAY | PROVIDERS: Emergency Provider Emergency Medicine; PCP Internal Medicine; Visit Provider Family Medicine | DX: J44.1 Chronic obstructive pulmonary disease with (acute) exacerbation (principal) | CPT/HCPCS: 99232; 99239; G0180 ==

== ENCOUNTER 2024-09-13 16:13 | Outpatient (BNV) | payer MEDICARE, OTHER, SELFPAY | END 2024-09-14 07:00 | PROVIDERS: Admitting Provider Family Medicine; Emergency Provider Emergency Medicine; PCP Internal Medicine; Visit Provider Internal Medicine Cardiovascular Disease | DX: I27.20 Pulmonary hypertension, unspecified (principal); I35.2 Nonrheumatic aortic (valve) stenosis with insufficiency; I34.0 Nonrheumatic mitral (valve) insufficiency; I36.1 Nonrheumatic tricuspid (valve) insufficiency; I51.7 Cardiomegaly; I34.89 Other nonrheumatic mitral valve disorders | CPT/HCPCS: 93306 ==